=== PATIENT | male | born 1955 | race Caucasian/White ===

== ENCOUNTER 2019-12-20 11:03 | Emergency (ER) | payer OTHER, SELFPAY ==
--- NOTE | ~2019-12-20 | CT_ITS ---
EXAMINATION: CTA chest PE protocol DATE: 12/20/2019 13:05 INDICATION: Left chest pain. Shortness of breath. TECHNIQUE: Computed tomography angiography (CTA) of the chest was performed with 100 mL Omnipaque-350 intravenous contrast timed to evaluate the pulmonary arteries. Coronal maximum intensity projection 3D-reconstructions were created by the technologist. Automated exposure control and iterative reconst ruction technique were employed. The dose-length product was 1003.76 mGy-cm. COMPARISON: Chest single view 12/20/2019 FINDINGS: There is mild emphysema. There is mild atelectasis bilaterally. Calcified left lung nodules and calcified left hilar lymph nodes are consistent with old granulomatous disease. There are airspa ce opacities in left lower lobe and the posterior costophrenic angle. No pleural effusion. There is l eft ventricular enlargement of the heart. There is a large old infarct in the distribution of left an terior descending coronary artery. There are coronary artery calcifications. There is a left chest wa ll pacer with leads in the right atrium and right ventricle. There is no pulmonary embolus. There is a 5.1 cm cyst in right kidney. IMPRESSION: 1. No pulmonary embolus. 2. Airspace opacities in basilar left lower lobe posteriorly, consistent with atelectasis versus pneu monia. 3. Mild emphysema. 4. Left ventricular enlargement of the heart with old infarct. Reviewed, dictated and finalized at location A. IMPRESSION: 1. No pulmonary embolus. 2. Airspace opacities in basilar left lower lobe posteriorly, consistent with a telectasis versus pneumonia. 3. Mild emphysema. 4. Left ventricular enlargement of the heart with old infarct.
--- NOTE | ~2019-12-20 | XR_ITS ---
EXAMINATION: XR chest 1V portable EXAM DATE: 12/20/2019 11:40 INDICATION: Mid chest pain. TECHNIQUE: Portable AP frontal chest x-ray was obtained. Comparison is made to prior examination from 07/02/2017. FINDINGS: There is a dual lead pacemaker/AICD seen with leads projecting over the expected locations of the right atrial appendage and right ventricle. The lungs are clear. There are no pleural effusio ns. Cardiac silhouette is prominent but magnified on this AP technique. There is no pneumothorax s uspected. There are bony degenerative changes. IMPRESSION: No acute cardiopulmonary findings. Reviewed, dictated and finalized at location B.
[2019-12-20 11:03] VITALS: BP 161/74; PULSE 60; RESP 18; TEMP 36.9; O2SAT 97
--- NOTE | 2019-12-20 11:05 | ECG_ITS ---
Measurements Intervals [place] Rate: 61 P: 52 [place]: 190 QRS: 95 QRSD: 128 T: 3 QT: 409 QTc: 412 Interpretive Statements SINUS RHYTHM RIGHT AXIS DEVIATION INTRAVENTRICULAR CONDUCTION DELAY ANTEROSEPTAL INFARCT, AGE INDETERMINATE BORDERLINE ST ABNORMALITY- INFERIOR LEADS ABNORMAL ECG Electronically Signed On 12-20-2019 20:24:27 CDT by Eric Ling D.O.
--- NOTE | 2019-12-20 11:19 | ED.CHESTPAIN ---
HPI - Chest Pain General Chief Complaint: Chest Pain Stated Complaint: Chest Pain Time Seen by Provider: 12/20/19 11:05 Source: patient Mode of arrival: ambulatory Limitations: no limitations History of Present Illness HPI narrative: 64-year-old man with a history coronary disease comes into emergency department today complaining of left anterior chest pain which is sharp in nature and worse when he takes deep breath. States it also hurts to push on that area. He denies nausea, vomiting, dizziness, lightheadedness, sweating or shortness of breath. It started approximately 90 minutes ago. Pain comes and goes. he denies recent change in his cough, fever, vomiting, cold symptoms. MD complaint: chest pain Pertinent past history: coronary artery disease, prior [place] and [employer] Onset (ago): minute(s) (90) Timing of current episode: episodic and still present Prior episodes: No Onset: during rest Pain location: left chest Pain radiation: none Severity: moderate Quality: sharp Relieving factors: nothing Exacerbating factors: palpation and other (Taking a deep breath) Treatment prior to arrival: none (Took 81 mg asa this am as per usual) Risk Factors Coronary artery disease risk factors: smoking history, hyperlipidemia and hypertension Related Data Home Medications Medication Instructions Recorded Confirmed Unable to Obtain Home Medications 12/20/19 12/20/19 Allergies Allergy/AdvReac Type Severity Reaction Status Date / Time No Known Allergies Allergy Verified 12/20/19 12:33 Review of Systems Constitutional: Constitutional: Denies chills and Denies fever(s) Eyes: Eyes: Denies change in vision and Denies photophobia ENT: Denies dysphagia, Denies nasal congestion and Denies sore throat Cardiovascular: Cardiovascular: Reports chest pain, Denies rapid heart rate and Denies radiating jaw, neck or arm pain Respiratory: Respiratory: Reports cough (chronic) and Reports dyspnea (chronic) Gastrointestinal: Gastrointestinal: Denies abdominal pain, Denies diarrhea, Denies nausea and Denies vomiting Genitourinary: Genitourinary: Denies dysuria and Denies urinary frequency Musculoskeletal: Musculoskeletal: Denies back pain, Denies arthralgias and Denies joint swelling Integumentary/Breasts: Skin/Breast: Denies pruritus, Denies erythema and Denies rash Neurologic: Denies vertigo, Denies dizziness and Denies syncope Hematologic/Lymphatic: Hematologic/Lymphatic: Denies easy bleeding and Denies easy bruising Allergic/Immunologic: Allergic/Immunologic: Denies lip swelling and Denies tongue swelling [facility] Past Medical History Medical History (Updated 12/20/19 @ 11:45 by Uriel Hughes MD) Back pain CAD (coronary artery disease) CHF (congestive heart failure) COPD (chronic obstructive pulmonary disease) GERD (gastroesophageal reflux disease) HTN (hypertension) PSVT (paroxysmal supraventricular tachycardia) Surgical History Surgical History (Updated 12/20/19 @ 11:27 by Uriel Hughes MD) AICD (automatic cardioverter/defibrillator) present Pacemaker Stented coronary artery Social History Social History Smoking status: Current every day smoker Substance use: never Living arrangements: with family Exam Const: General: alert Nutritional Appearance: obese Orientation/consciousness: patient oriented x3 Limitations: no limitations Other: Mild acute distress HENMT: General nose exam: Normal nares present Face and sinus: normal facial exam Mouth: Yes moist mucous membranes Throat: posterior oropharynx normal Eyes: Conjunctivae: conjunctivae normal Pupils: Equal, round and reactive pupils present EOM: EOMs intact bilaterally Chest: Chest palpation & inspection: normal inspection of the chest Resp: Effort & Inspection: normal respiratory effort and not labored Auscultation: clear to auscultation bilaterally, no rales, no rhonchi and no wheezes Ca
[2019-12-20] MEDS: ASPIRIN 81 MG CHEWABLE TABLET 243 MG PO (11:25)
[2019-12-20 11:30] LABS: Basophils Absolute Auto 0.05 K/mm3 (0.00-0.10); Basophils Percent Auto 0.7 % (0.0-1.0); Eosinophils Absolute Auto 0.44 K/mm3 (0.02-0.50); Eosinophils Percent Auto 5.8 % (1.0-6.0); Hematocrit 35.2 % (37.0-46.0); Hemoglobin 11.3 g/dL (12.4-15.3); Immature Granulocyte Absolute 0.08 K/mm3 (0.00-0.00); Immature Granulocyte Percent A 1.1 % (0.0-0.0); Lymphocytes Absolute Auto 1.68 K/mm3 (1.10-4.50); Lymphocytes Percent Auto 22.3 % (18.0-42.0); Mean Corpuscular HGB Conc 32.1 g/dL (32.0-36.0); Mean Corpuscular Hemoglobin 29.8 pg (27.0-31.0); Mean Corpuscular Volume 92.9 fL (78.0-102.0); Mean Platelet Volume 9.1 fl (8.7-11.0); Monocytes Absolute Auto 0.61 K/mm3 (0.10-0.90); Monocytes Percent Auto 8.1 % (2.0-11.0); Neutrophils Absolute Auto 4.7 K/mm3 (1.7-7.2); Platelet Count Result 352 K/mm3 (150-420); Red Blood Count 3.79 M/mm3 (4.70-6.10); Red Cell Distribution Width 14.1 % (11.6-14.4); White Blood Count 7.5 K/mm3 (4.8-10.8)
[2019-12-20 11:44] LABS: INR 1.1; Partial Thromboplastin Time 28.6 SEC (22.3-31.6)
[2019-12-20 11:46] LABS: Alanine Aminotransferase 25 U/L (16-63); Albumin Level 3.7 g/dL (3.4-5.0); Alkaline Phosphatase 47 U/L (46-116); Anion Gap 10 mmol/L (8-16); Aspartate Amino Transferase 21 U/L (15-37); Bilirubin,Total 0.2 mg/dL (0.00-1.00); Blood Urea Nitrogen 22 mg/dL (7-18); Calcium 8.8 mg/dL (8.5-10.1); Carbon Dioxide 25 mmol/L (21-32); Chloride 103 mmol/L (98-108); Estimated Glomerular Filt Rate 47; Glucose 140 mg/dL (70-99); Lipase 160 U/L (73-393); Osmolality Calculated 291 mOsm/kg (285-295); Potassium 5.2 mmol/L (3.5-5.1); Sodium 138 mmol/L (136-145); Total Protein 7.5 g/dL (6.4-8.2)
[2019-12-20 11:47] LABS: D Dimer 0.67 mg/L (0.19-0.50)
[2019-12-20 11:50] LABS: Estimated CRCL calculation 54 ml/min
[2019-12-20 11:51] LABS: Troponin I < 0.02 ng/mL (0.00-0.056)
[2019-12-20 11:52] LABS: BNP 58.1 pg/mL (0-100)
--- NOTE | 2019-12-20 11:53 | PC.NURSE ---
pt joking and laughing, attentive to cell phone. continues to rate pain 9/10
[2019-12-20] MEDS: NITROGLYCERIN SL 0.4 MG TABLET SUBLINGUAL ×2 (11:57→12:07)
[2019-12-20 11:59] VITALS: PULSE 58
[2019-12-20 12:02] LABS: Add Urine Microscopic? YES; Appearance Urine Clear (Clear); Bilirubin Urine Negative (Negative); Blood Urine Negative (Negative); Color Urine Yellow (Yellow); Glucose Urine UA Negative (Negative); Ketones Urine Trace (Negative); Leukocyte Esterase Ur Trace LEU/UL (Negative); Nitrate Urine Negative (Negative); Protein Urine Negative (Negative); Specific Grav Ur 1.025 (1.010-1.020); Urobilinogen Urine 0.2 mg/dL (0.2-1.0)
[2019-12-20 12:06] LABS: Bacteria Urine None seen /hpf; RBC Urine 0-2 /hpf (0-2); Squamous Epithelial Cell Urine Occasional /hpf (Few); WBC Urine 0-3 /hpf (0-3)
--- NOTE | 2019-12-20 12:24 | PC.NURSE ---
erp in with pt discussing plan of care.
[2019-12-20 13:28] VITALS: BP 123/56; PULSE 60; RESP 20; TEMP 36.6; O2SAT 96
== END 2019-12-20 13:30 | disposition home or self-care (01) ==
PROVIDERS: Emergency Provider Emergency Medicine
DX: R07.89 Other chest pain (principal); R06.00 Dyspnea, unspecified
CPT/HCPCS: 36415; 71045; 71275; 80053; 81001; 83690; 83880; 84484; 85025; 85380; 85610; 85730; 93005; 99284; A9270; Q9965

== ENCOUNTER 2020-04-29 11:03 | Emergency (ER) | payer OTHER, SELFPAY ==
[2020-04-29 11:03] VITALS: BP 132/47; PULSE 60; RESP 20; TEMP 36.4; O2SAT 97
[2020-04-29 11:23] VITALS: PULSE 60
--- NOTE | 2020-04-29 11:30 | ECG_ITS ---
Measurements Intervals [place] Rate: 54 P: 51 [place]: 210 QRS: 85 QRSD: 113 T: 72 QT: 457 QTc: 435 Interpretive Statements SINUS BRADYCARDIA WITH FIRST DEGREE AV BLOCK INTRAVENTRICULAR CONDUCTION DELAY ANTEROSEPTAL INFARCT, AGE INDETERMINATE BASELINE ARTIFACT- V2-V5 ABNORMAL ECG Electronically Signed On 04-29-2020 12:06:23 [employer] by Eric Ling D.O.
--- NOTE | 2020-04-29 11:32 | ED.GENADULT ---
HPI - General Adult General Chief complaint: Chest Pain Stated complaint: Chest Pains Source: patient Mode of arrival: ambulatory History of Present Illness HPI narrative: South is a 64M with a complex PMH including CAD and arrhythmia (unknown type), COPD, PUD, HLD, and HTN that came in to the ED with CP and feeling a little tremulousness. His CP started around 0900 and stopped 30 minutes before coming to the ED. However, after it stopped he felt a little tremulous, like he drank too much caffine. His CP went away after he belched several times. He was eating donuts during this episode. There was no SOB, N/V, or lightheadedness with the CP. The CP did not radiate and it is completely gone now. However, his hands do still seem a little shaky. Related Data Home Medications Medication Instructions Recorded Confirmed Adult Low Dose Aspirin 81 mg PO DAILY 12/20/19 04/29/20 Nitrostat 0.4 mg SUBLINGUAL DIRECTED 12/20/19 04/29/20 amiloride 5 mg PO DAILY 12/20/19 04/29/20 amiodarone 200 mg PO DAILY 12/20/19 04/29/20 budesonide 80 mcg INHALATION BID 12/20/19 04/29/20 cholecalciferol (vitamin D3) 25 mcg BYMOUTH DAILY 12/20/19 04/29/20 doxazosin 8 mg PO DAILY 12/20/19 04/29/20 gabapentin 100 mg PO DAILY 12/20/19 04/29/20 lisinopril 40 mg PO DAILY 12/20/19 04/29/20 metoprolol succinate 200 mg PO DAILY 12/20/19 04/29/20 wbyzvzbiuiyn-mmq-meyg-FA-vit K 1 tablet PO DAILY 12/20/19 04/29/20 [Adults Multivitamin] omeprazole 40 mg PO DAILY 12/20/19 04/29/20 pravastatin 10 mg PO DAILY 12/20/19 04/29/20 Allergies Allergy/AdvReac Type Severity Reaction Status Date / Time No Known Allergies Allergy Verified 12/20/19 12:33 Review of Systems Constitutional: Constitutional: Denies chills, Denies fever(s) and Denies weakness Eyes: Eyes: Reports no additional eye complaints ENT: Reports system reviewed and no additional complaints, except as documented Cardiovascular: Cardiovascular: Reports as per HPI Respiratory: Respiratory: Reports no additional respiratory complaints Gastrointestinal: Gastrointestinal: Reports as per HPI Genitourinary: Genitourinary: Reports no additional male genitourinary complaints Musculoskeletal: Musculoskeletal: Reports no additional musculoskeletal complaints Integumentary/Breasts: Skin/Breast: Reports system reviewed and no additional complaints, except as docu Neurologic: Reports system reviewed and no additional complaints, except as documented Psychiatric: Psychiatric: Reports no additional psychiatric complaints REPLACED BY [facility] Past Medical History Medical History Back pain CAD (coronary artery disease) CHF (congestive heart failure) COPD (chronic obstructive pulmonary disease) GERD (gastroesophageal reflux disease) HTN (hypertension) PSVT (paroxysmal supraventricular tachycardia) Surgical History Surgical History AICD (automatic cardioverter/defibrillator) present Pacemaker Stented coronary artery Social History Social History Smoking status: Current every day smoker Substance use: never Exam Const: General: no acute distress and alert Orientation/consciousness: patient oriented x3 Limitations: No altered mental status HENMT: Head: normal to inspection Other: atraumatic Eyes: Conjunctivae: conjunctivae normal Pupils: Equal, round and reactive pupils present Neck: Neck: normal visual inspection Chest: Chest palpation & inspection: normal inspection of the chest Resp: Effort & Inspection: normal respiratory effort Auscultation: clear to auscultation bilaterally Cardio: Rate: regular rate Rhythm: regular rhythm GI: GI Palp: Yes Soft to palpation, No Tenderness to palpation present (GI) and No Guarding due to palpation present (GI) Back/Spine/Pelvis: Back: no CVA tenderness Skin: General skin exam: normal co
[2020-04-29 11:49] LABS: Basophils Absolute Auto 0.03 K/mm3 (0.00-0.10); Basophils Percent Auto 0.5 % (0.0-1.0); Eosinophils Absolute Auto 0.21 K/mm3 (0.02-0.50); Eosinophils Percent Auto 3.6 % (1.0-6.0); Hematocrit 30.3 % (37.0-46.0); Hemoglobin 9.5 g/dL (12.4-15.3); Immature Granulocyte Absolute 0.05 K/mm3 (0.00-0.00); Immature Granulocyte Percent A 0.8 % (0.0-0.0); Lymphocytes Absolute Auto 1.24 K/mm3 (1.10-4.50); Mean Corpuscular HGB Conc 31.4 g/dL (32.0-36.0); Mean Corpuscular Hemoglobin 27.5 pg (27.0-31.0); Mean Corpuscular Volume 87.6 fL (78.0-102.0); Mean Platelet Volume 9.1 fl (8.7-11.0); Monocytes Percent Auto 6.8 % (2.0-11.0); Neutrophils Percent Auto 67.3 % (50.0-70.0); Platelet Count Result 291 K/mm3 (150-420); Red Blood Count 3.46 M/mm3 (4.70-6.10); Red Cell Distribution Width 14.8 % (11.6-14.4); White Blood Count 5.9 K/mm3 (4.8-10.8)
[2020-04-29 12:05] LABS: Alanine Aminotransferase 38 U/L (16-63); Albumin Level 3.4 g/dL (3.4-5.0); Alkaline Phosphatase 44 U/L (46-116); Anion Gap 11 mmol/L (8-16); Aspartate Amino Transferase 27 U/L (15-37); Bilirubin,Total 0.2 mg/dL (0.00-1.00); Blood Urea Nitrogen 17 mg/dL (7-18); Calcium 8.6 mg/dL (8.5-10.1); Carbon Dioxide 25 mmol/L (21-32); Chloride 103 mmol/L (98-108); Estimated CRCL calculation 63 ml/min; Estimated Glomerular Filt Rate 56; Glucose 134 mg/dL (70-99); Osmolality Calculated 291 mOsm/kg (285-295); Potassium 4.4 mmol/L (3.5-5.1); Sodium 139 mmol/L (136-145); Troponin I 9.8 ng/L (0.00-60.4)
[2020-04-29] MEDS: MAG HYDROX/ALUMINUM HYD/SIMETH 30 ML, PHENobarb/HYOSCY/ATROPINE/SCOP 32.4 MG, LIDOCAINE... PO (12:05)
[2020-04-29 12:21] VITALS: BP 139/50; PULSE 60; RESP 12; O2SAT 96
== END 2020-04-29 12:24 | disposition home or self-care (01) ==
PROVIDERS: Emergency Provider Family Medicine
DX: R07.89 Other chest pain (principal)
CPT/HCPCS: 36415; 80053; 84484; 85025; 93005; 99282; 99284; A9270

== ENCOUNTER 2021-09-21 05:32 | Emergency (ER) | payer OTHER, SELFPAY ==
--- NOTE | ~2021-09-21 | XR_ITS ---
EXAMINATION: XR chest 2V DATE: 09/21/2021 06:56 INDICATION: Chest pain. Cardiac arrhythmia. TECHNIQUE: frontal and lateral views of the chest were obtained. COMPARISON: Chest radiograph and CT dated 12/20/2019 FINDINGS: Calcified nodule in the posterior superior segment of the left lower lobe along with calcified left h ilar lymph nodes consistent with old granulomatous disease. The lungs remain clear with no focal airs pace opacities, pulmonary edema, pleural effusion or pneumothorax. Mild cardiomegaly. Dual lead pacemaker/AICD seen with leads projecting over the expected locations of the right atrium a nd right ventricular outflow tract. Moderate thoracic spondylosis. IMPRESSION: 1. Mild cardiomegaly. No acute cardiopulmonary disease. Reviewed, dictated and finalized at location A.
[2021-09-21 05:35] VITALS: BP 131/84; PULSE 60; PULSE 65; RESP 20; TEMP 36.1; O2SAT 95
--- NOTE | 2021-09-21 05:37 | ED.ARRPALP ---
HPI - Arrhythmia/Palpitations General Chief Complaint: Arrhythmia/Palpitations Stated Complaint: sob Time Seen by Provider: 09/21/21 05:37 Source: patient Mode of arrival: ambulatory History of Present Illness HPI narrative: 66-year-old male smoker with a history of hypertension, dyslipidemia, COPD, PSVT, PVD status post bilateral lower extremity stents, coronary artery disease / PR status post stents, CHF status post AICD four years ago called the [facility] for palpitations since last night. . He was come to the nearest hospital for arrhythmias. He denies any chest pain or shortness of breath. MD complaint: irregular heart beat Onset (ago): hour(s) ( 12 hours ago) Duration: intermittent Severity: mild Context: occurred during rest Arrhythmia history: SVT Associated symptoms: denies other symptoms Related Data Home Medications Medication Instructions Recorded Confirmed Adult Low Dose Aspirin 81 mg PO DAILY 12/20/19 09/21/21 Nitrostat 0.4 mg sublingual DIRECTED 12/20/19 09/21/21 amiloride 5 mg PO DAILY 12/20/19 09/21/21 amiodarone 200 mg PO DAILY 12/20/19 09/21/21 budesonide 80 mcg inhalation BID 12/20/19 09/21/21 cholecalciferol (vitamin D3) 25 mcg BYMOUTH DAILY 12/20/19 09/21/21 doxazosin 8 mg PO DAILY 12/20/19 09/21/21 gabapentin 100 mg PO DAILY 12/20/19 09/21/21 lisinopril 40 mg PO DAILY 12/20/19 09/21/21 metoprolol succinate 200 mg PO DAILY 12/20/19 09/21/21 multivit with minerals-iron 18 1 tablet PO DAILY 12/20/19 09/21/21 mg-folic ac 400 mcg-vit K 25 mcg tablet (Adults Multivitamin) omeprazole 40 mg PO DAILY 12/20/19 09/21/21 pravastatin 10 mg PO DAILY 12/20/19 09/21/21 aspirin 81 mg tablet 81 mg PO DIRECTED 09/21/21 09/21/21 furosemide 20 mg tablet (Lasix) 20 mg PO DIRECTED 09/21/21 09/21/21 prednisone 10 mg tablets in a dose 0 mg PO PER PKG DIR 09/21/21 09/21/21 pack Allergies Allergy/AdvReac Type Severity Reaction Status Date / Time No Known Allergies Allergy Verified 09/21/21 05:57 Review of Systems Review of Systems: All systems reviewed & are unremarkable except as noted in HPI and below Constitutional: Constitutional: Reports as per HPI Eyes: Eyes: Reports as per HPI and Reports no additional eye complaints ENT: Reports system reviewed and no additional complaints, except as documented and Reports as per HPI Cardiovascular: Cardiovascular: Reports as per HPI, Reports no additional cardiovascular complaints and Reports rapid heart rate ( irregular heartbeat) Respiratory: Respiratory: Reports as per HPI, Reports no additional respiratory complaints and Reports chest congestion Gastrointestinal: Gastrointestinal: Reports as per HPI and Reports no additional gastrointestinal complaints Genitourinary: Genitourinary: Reports no additional male genitourinary complaints and Reports as per HPI Musculoskeletal: Musculoskeletal: Reports no additional musculoskeletal complaints and Reports as per HPI Integumentary/Breasts: Skin/Breast: Reports system reviewed and no additional complaints, except as docu and Reports as per HPI Neurologic: Reports system reviewed and no additional complaints, except as documented and Reports as per HPI Psychiatric: Psychiatric: Reports no additional psychiatric complaints and Reports as per HPI Endocrine: Endocrine: Reports no additional endocrine complaints and Reports as per HPI Hematologic/Lymphatic: Hematologic/Lymphatic: Reports no additional hematologic/lymphatic complaints and Reports as per HPI Allergic/Immunologic: Allergic/Immunologic: Reports no additional allergic/immunologic complaints and Reports as per HPI [facility] Past Medical History Medical History Back pain CAD (coronary artery disease) CHF (congestive heart failure) COPD (chronic obstructive pulmonary disease) GERD (gastroesophageal reflux disease) HTN (hypertension) PSVT (paroxysmal supraventricular tachycardia) Tc
--- NOTE | 2021-09-21 06:00 | ECG_ITS ---
Measurements Intervals [place] Rate: 63 P: 116 [place]: 221 QRS: 68 QRSD: 113 T: 58 QT: 400 QTc: 409 Interpretive Statements ELECTRONIC ATRIAL PACEMAKER PVC POSSIBLE ANTERIOR MYOCARDIAL INFARCTION , OF INDETERMINATE AGE Electronically Signed On 09-21-2021 10:44:36 CDT by Jefry Pearce M.D.
[2021-09-21 06:16] LABS: Basophils Absolute Auto 0.05 K/mm3 (0.00-0.10); Basophils Percent Auto 0.6 % (0.0-1.0); Eosinophils Absolute Auto 0.14 K/mm3 (0.02-0.50); Eosinophils Percent Auto 1.7 % (1.0-6.0); Hematocrit 39.3 % (37.0-46.0); Hemoglobin 12.8 g/dL (12.4-15.3); Immature Granulocyte Absolute 0.05 K/mm3 (0.00-0.00); Immature Granulocyte Percent A 0.6 % (0.0-0.0); Lymphocytes Absolute Auto 1.73 K/mm3 (1.10-4.50); Mean Corpuscular HGB Conc 32.6 g/dL (32.0-36.0); Mean Corpuscular Hemoglobin 30.3 pg (27.0-31.0); Mean Corpuscular Volume 93.1 fL (78.0-102.0); Monocytes Absolute Auto 0.55 K/mm3 (0.10-0.90); Monocytes Percent Auto 6.7 % (2.0-11.0); Neutrophils Absolute Auto 5.7 K/mm3 (1.7-7.2); Neutrophils Percent Auto 69.4 % (50.0-70.0); Platelet Count Result 242 K/mm3 (150-420); Red Blood Count 4.22 M/mm3 (4.70-6.10); Red Cell Distribution Width 14.6 % (11.6-14.4); White Blood Count 8.2 K/mm3 (4.8-10.8)
[2021-09-21 06:31] LABS: Partial Thromboplastin Time 26.7 SEC (23.90-30.70); Prothrombin Time 10.9 Seconds (9.50-12.10)
[2021-09-21 06:37] LABS: Lactic Acid Reflex 1.4 mmol/L (0.4-2.0)
[2021-09-21 06:39] LABS: Alanine Aminotransferase 14 U/L (16-63); Albumin Level 3.3 g/dL (3.4-5.0); Alkaline Phosphatase 45 U/L (46-116); Anion Gap 6 mmol/L (8-16); Aspartate Amino Transferase 15 U/L (15-37); Bilirubin,Total 0.3 mg/dL (0.00-1.00); Blood Urea Nitrogen 23 mg/dL (7-18); Calcium 8.8 mg/dL (8.5-10.1); Carbon Dioxide 29 mmol/L (21-32); Chloride 106 mmol/L (98-108); Estimated Glomerular Filt Rate 56; Glucose 117 mg/dL (70-99); NT Pro B Type Natriuretic Pept 1744 pg/mL (0-125); Osmolality Calculated 296 mOsm/kg (285-295); Potassium 4.1 mmol/L (3.5-5.1); Sodium 141 mmol/L (136-145); Total Protein 6.7 g/dL (6.4-8.2); Troponin I 18.5 ng/L (0.00-60.4)
[2021-09-21 07:17] VITALS: BP 140/65; PULSE 65; RESP 16; O2SAT 96
== END 2021-09-21 07:20 | disposition home or self-care (01) ==
PROVIDERS: Emergency Provider Internal Medicine Critical Care Medicine
DX: R00.2 Palpitations (principal); I50.9 Heart failure, unspecified; I25.10 Atherosclerotic heart disease of native coronary artery without angina pectoris; J44.9 Chronic obstructive pulmonary disease, unspecified; K21.9 Gastro-esophageal reflux disease without esophagitis; I10 Essential (primary) hypertension; F17.200 Nicotine dependence, unspecified, uncomplicated
CPT/HCPCS: 36415; 71046; 80053; 83605; 83880; 84484; 85025; 85610; 85730; 93005; 99284

== ENCOUNTER 2022-03-28 10:38 | Emergency (ER) | payer OTHER, SELFPAY ==
--- NOTE | ~2022-03-28 | XR_ITS ---
EXAMINATION: XR chest 1V portable DATE: 03/28/2022 11:34 INDICATION: Shortness of breath. TECHNIQUE: A single frontal view of the chest was obtained. COMPARISON: Chest 2 views 09/21/2021, chest CT 12/20/2019 FINDINGS: There is no pneumonia, pleural effusion, or pneumothorax. Calcified left hilar lymph nodes are consistent with old granulomatous disease. There is left ventricular enlargement of the heart. Th ere is a left chest wall pacer with leads in the right atrium and right ventricle. IMPRESSION: 1. Left ventricular enlargement of the heart. Reviewed, dictated and finalized at location A. [employer]
[2022-03-28 10:59] VITALS: BP 131/62; PULSE 69; RESP 20; TEMP 36.2; O2SAT 93
--- NOTE | 2022-03-28 11:02 | ECG_ITS ---
Measurements Intervals [place] Rate: 63 P: 41 [place]: 200 QRS: 82 QRSD: 116 T: 55 QT: 408 QTc: 418 Interpretive Statements ELECTRONIC ATRIAL PACEMAKER WITH INHIBITION INCOMPLETE LEFT BUNDLE BRANCH BLOCK BORDERLINE R WAVE PROGRESSION, ANTERIOR LEADS BORDERLINE ST-T WAVE ABNORMALITY- INFERIOR LEADS ABNORMAL ECG COMPARED TO ECG 09/21/2021 06:27:48 NO SIGNIFICANT CHANGES Electronically Signed On 03-28-2022 11:39:30 [employer]INE [employer] by Eric Ling D.O.
--- NOTE | 2022-03-28 11:04 | ED.CHESTPAIN ---
HPI - Chest Pain General Chief Complaint: Upper Respiratory Infection Stated Complaint: [facility], congestion Time Seen by Provider: 03/28/22 11:01 Source: patient Mode of arrival: ambulatory History of Present Illness HPI narrative: 66-year-old male, smoker with a history of hypertension, dyslipidemia, GERD, COPD, CAD status post stent, CHF status post AICD, peripheral vascular disease presents to the ER with a 10 day history of -- cough which is productive of mucoid sputum -- sinus drainage -- chest congestion -- Fever 3 days ago. MD complaint: other ( chest congestion) Pertinent past history: coronary artery disease and prior [place] Context: recent illness Associated symptoms: dyspnea, fever, cough and other ( nasal congestion with sinus drainage) Treatment prior to arrival: none Risk Factors Coronary artery disease risk factors: smoking history, hyperlipidemia and hypertension Related Data Home Medications Medication Instructions Recorded Confirmed Adult Low Dose Aspirin 81 mg PO DAILY 12/20/19 09/21/21 Nitrostat 0.4 mg sublingual DIRECTED 12/20/19 09/21/21 amiloride 5 mg PO DAILY 12/20/19 09/21/21 amiodarone 200 mg PO DAILY 12/20/19 09/21/21 budesonide 80 mcg inhalation BID 12/20/19 09/21/21 cholecalciferol (vitamin D3) 25 mcg BYMOUTH DAILY 12/20/19 09/21/21 doxazosin 8 mg PO DAILY 12/20/19 09/21/21 gabapentin 100 mg PO DAILY 12/20/19 09/21/21 lisinopril 40 mg PO DAILY 12/20/19 09/21/21 metoprolol succinate 200 mg PO DAILY 12/20/19 09/21/21 multivit with minerals-iron 18 1 tablet PO DAILY 12/20/19 09/21/21 mg-folic ac 400 mcg-vit K 25 mcg tablet (Adults Multivitamin) omeprazole 40 mg PO DAILY 12/20/19 09/21/21 pravastatin 10 mg PO DAILY 12/20/19 09/21/21 aspirin 81 mg tablet 81 mg PO DIRECTED 09/21/21 09/21/21 furosemide 20 mg tablet (Lasix) 20 mg PO DIRECTED 09/21/21 09/21/21 prednisone 10 mg tablets in a dose 0 mg PO PER PKG DIR 09/21/21 09/21/21 pack Allergies Allergy/AdvReac Type Severity Reaction Status Date / Time No Known Allergies Allergy Verified 09/21/21 05:57 Review of Systems Review of Systems: All systems reviewed & are unremarkable except as noted in HPI and below Constitutional: Constitutional: Reports as per HPI, Reports no additional constitutional complaints and Reports fever(s) Eyes: Eyes: Reports as per HPI and Reports no additional eye complaints ENT: Reports system reviewed and no additional complaints, except as documented, Reports as per HPI and Reports nasal congestion Comments: postnasal drip Cardiovascular: Cardiovascular: Reports as per HPI and Reports no additional cardiovascular complaints Comments: chest congestion Respiratory: Respiratory: Reports as per HPI, Reports no additional respiratory complaints, Reports chest congestion, Reports cough and Reports dyspnea Comments: cough with mucoid sputum Gastrointestinal: Gastrointestinal: Reports as per HPI and Reports no additional gastrointestinal complaints Genitourinary: Genitourinary: Reports no additional male genitourinary complaints and Reports as per HPI Musculoskeletal: Musculoskeletal: Reports no additional musculoskeletal complaints and Reports as per HPI Integumentary/Breasts: Skin/Breast: Reports system reviewed and no additional complaints, except as docu and Reports as per HPI Neurologic: Reports system reviewed and no additional complaints, except as documented and Reports as per HPI Psychiatric: Psychiatric: Reports no additional psychiatric complaints and Reports as per HPI Endocrine: Endocrine: Reports no additional endocrine complaints and Reports as per HPI Hematologic/Lymphatic: Hematologic/Lymphatic: Reports no additional hematologic/lymphatic complaints and Reports as per HPI Allergic/Immunologic: Allergic/Immunologic: Reports no additional allergic/immunologic complaints and Reports as per HPI [facility] Past Medical History Medical History (Reviewed 03/28/22 @ 11:18 b
[2022-03-28] MEDS: IPRATROPIUM 0.5 MG/ALBUTEROL SULFATE 2.5 MG AMPUL.NEB 3 ML INHALATION (11:35)
[2022-03-28 11:36] VITALS: PULSE 64; RESP 16; O2SAT 92
[2022-03-28 11:41] LABS: Basophils Absolute Auto 0.02 K/mm3 (0.00-0.10); Basophils Percent Auto 0.4 % (0.0-1.0); Eosinophils Absolute Auto 0.06 K/mm3 (0.02-0.50); Eosinophils Percent Auto 1.2 % (1.0-6.0); Hematocrit 38.3 % (37.0-46.0); Hemoglobin 12.7 g/dL (12.4-15.3); Immature Granulocyte Absolute 0.02 K/mm3 (0.00-0.00); Immature Granulocyte Percent A 0.4 % (0.0-0.0); Lymphocytes Absolute Auto 1.35 K/mm3 (1.10-4.50); Lymphocytes Percent Auto 27.6 % (18.0-42.0); Mean Corpuscular HGB Conc 33.2 g/dL (32.0-36.0); Mean Corpuscular Hemoglobin 30.9 pg (27.0-31.0); Mean Corpuscular Volume 93.2 fL (78.0-102.0); Mean Platelet Volume 9.3 fl (8.7-11.0); Monocytes Absolute Auto 0.46 K/mm3 (0.10-0.90); Monocytes Percent Auto 9.4 % (2.0-11.0); Platelet Count Result 210 K/mm3 (150-420); Red Blood Count 4.11 M/mm3 (4.70-6.10); White Blood Count 4.9 K/mm3 (4.8-10.8)
[2022-03-28 11:45] VITALS: PULSE 62; RESP 16; O2SAT 97
[2022-03-28 11:56] LABS: Partial Thromboplastin Time 32.5 SEC (23.90-30.70); Prothrombin Time 10.9 Seconds (9.50-12.10)
[2022-03-28 12:01] LABS: Lactic Acid Reflex 1.4 mmol/L (0.4-2.0)
[2022-03-28 12:17] LABS: Alanine Aminotransferase 37 U/L (16-63); Albumin Level 3.6 g/dL (3.4-5.0); Alkaline Phosphatase 45 U/L (46-116); Anion Gap 9 mmol/L (8-16); Aspartate Amino Transferase 28 U/L (15-37); Bilirubin,Total 0.2 mg/dL (0.00-1.00); Blood Urea Nitrogen 25 mg/dL (7-18); Calcium 8.5 mg/dL (8.5-10.1); Carbon Dioxide 26 mmol/L (21-32); Chloride 104 mmol/L (98-108); Estimated CRCL calculation 52 ml/min; Estimated Glomerular Filt Rate 47; Glucose 109 mg/dL (70-99); Influenza A QL RT-PCR Negative (Negative); Influenza B QL RT-PCR Negative (Negative); NT Pro B Type Natriuretic Pept 563 pg/mL (0-125); Osmolality Calculated 293 mOsm/kg (285-295); Potassium 4.2 mmol/L (3.5-5.1); SARS-CoV-2 RNA PCR Positive (Negative); Sodium 139 mmol/L (136-145); Total Protein 7.3 g/dL (6.4-8.2); Troponin I 16.7 ng/L (0.00-60.4)
[2022-03-28 12:21] LABS: Thyroid Stimulating Hormone 0.63 uIU/mL (0.36-3.74)
[2022-03-28 12:40] VITALS: BP 129/62; PULSE 64; RESP 20
[2022-03-28] MEDS: AZITHROMYCIN 250 MG TABLET 500 MG PO (12:51)
[2022-03-28] MEDS: ALBUTEROL SULFATE (*SP) INHALER 2 PUFF INHALATION (12:52)
[2022-03-28 13:10] VITALS: BP 107/95; PULSE 64; RESP 20; O2SAT 93
== END 2022-03-28 13:13 | disposition home or self-care (01) ==
PROVIDERS: Emergency Provider Internal Medicine Critical Care Medicine
DX: U07.1 COVID-19 (principal); N17.9 Acute kidney failure, unspecified; I13.0 Hypertensive heart and chronic kidney disease with heart failure and stage 1 through stage 4 chronic kidney disease, or unspecified chronic kidney disease; I50.9 Heart failure, unspecified; N18.9 Chronic kidney disease, unspecified; J44.9 Chronic obstructive pulmonary disease, unspecified; E78.5 Hyperlipidemia, unspecified; K21.9 Gastro-esophageal reflux disease without esophagitis; I25.10 Atherosclerotic heart disease of native coronary artery without angina pectoris; I47.1 Supraventricular tachycardia; Z95.5 Presence of coronary angioplasty implant and graft; Z95.810 Presence of automatic (implantable) cardiac defibrillator; I73.9 Peripheral vascular disease, unspecified; Z79.82 Long term (current) use of aspirin
CPT/HCPCS: 36415; 71045; 80053; 83605; 83880; 84443; 84484; 85025; 85610; 85730; 87636; 93005; 94640; 99284; A9270

== ENCOUNTER 2022-03-30 10:42 | Emergency (ER) | payer OTHER, SELFPAY ==
[2022-03-30 12:55] VITALS: BP 133/70; PULSE 61; RESP 20; TEMP 36.3; O2SAT 94
[2022-03-30 13:40] VITALS: O2SAT 94
--- NOTE | 2022-03-30 13:47 | ED.SOB ---
HPI - SOB/Dyspnea General Chief Complaint: Abdominal Pain Stated Complaint: HERNIA ISSUES Time Seen by Provider: 03/30/22 13:21 Source: patient Mode of arrival: ambulatory Limitations: no limitations History of Present Illness HPI Narrative: 66 year old male presents to the Emergency Department complaining of shortness of breath. Patient attributes his shortness of breath to his abdominal ventral hernia. Patient states when he walks he gets short of breath, or any time he exerts himself. Patient has a ventral hernia and was also Covid positive 2 weeks ago and smokes. He attributes his shotness of breath to his hernia pushing upwards. Denies chest pain. No fever, nausea, vomiting or diarrhea. Denies any problems with urination or bowel movements. MD elicited complaint: shortness of breath Pertinent past history: COPD and congestive heart failure Onset (ago): week(s) Context: recent illness (Covid positive 2 weeks ago) Timing: intermittent Severity: moderate Exacerbating factors: lying flat, exertion and coughing Relieving factors: rest and upright position Known history of: COPD, congestive heart failure and other (Covid, Smoking) Associated symptoms: denies other symptoms, cough and abdominal pain Treatment prior to arrival: none Related Data Home Medications Medication Instructions Recorded Confirmed Adult Low Dose Aspirin 81 mg PO DAILY 12/20/19 09/21/21 Nitrostat 0.4 mg sublingual DIRECTED 12/20/19 09/21/21 amiloride 5 mg PO DAILY 12/20/19 09/21/21 amiodarone 200 mg PO DAILY 12/20/19 09/21/21 budesonide 80 mcg inhalation BID 12/20/19 09/21/21 cholecalciferol (vitamin D3) 25 mcg BYMOUTH DAILY 12/20/19 09/21/21 doxazosin 8 mg PO DAILY 12/20/19 09/21/21 gabapentin 100 mg PO DAILY 12/20/19 09/21/21 lisinopril 40 mg PO DAILY 12/20/19 09/21/21 metoprolol succinate 200 mg PO DAILY 12/20/19 09/21/21 multivit with minerals-iron 18 1 tablet PO DAILY 12/20/19 09/21/21 mg-folic ac 400 mcg-vit K 25 mcg tablet (Adults Multivitamin) omeprazole 40 mg PO DAILY 12/20/19 09/21/21 pravastatin 10 mg PO DAILY 12/20/19 09/21/21 aspirin 81 mg tablet 81 mg PO DIRECTED 09/21/21 09/21/21 furosemide 20 mg tablet (Lasix) 20 mg PO DIRECTED 09/21/21 09/21/21 prednisone 10 mg tablets in a dose 0 mg PO PER PKG DIR 09/21/21 09/21/21 pack Allergies Allergy/AdvReac Type Severity Reaction Status Date / Time No Known Allergies Allergy Verified 09/21/21 05:57 Review of Systems Review of Systems: All systems reviewed & are unremarkable except as noted in HPI and below Constitutional: Constitutional: Reports as per HPI, Reports no additional constitutional complaints, Denies chills, Denies fatigue, Denies fever(s) and Denies weakness Eyes: Eyes: Reports as per HPI, Reports no additional eye complaints and Denies change in vision ENT: Reports system reviewed and no additional complaints, except as documented, Reports as per HPI, Denies nasal congestion and Denies sore throat Cardiovascular: Cardiovascular: Reports as per HPI, Reports no additional cardiovascular complaints and Denies chest pain Respiratory: Respiratory: Reports as per HPI, Reports no additional respiratory complaints and Reports dyspnea Gastrointestinal: Gastrointestinal: Reports as per HPI, Reports no additional gastrointestinal complaints, Denies constipation, Denies diarrhea, Denies nausea and Denies vomiting Genitourinary: Genitourinary: Reports no additional male genitourinary complaints, Reports as per HPI, Denies oliguria and Denies dysuria Musculoskeletal: Musculoskeletal: Reports no additional musculoskeletal complaints, Reports as per HPI and Denies joint swelling Integumentary/Breasts: Skin/Breast: Reports system reviewed and no additional complaints, except as docu and Reports as per HPI Neurologic: Reports system reviewed and no additional complaints, except as documented, Reports as per HPI, Denies focal weakness, Denies numbness and Denies weakness Psych
== END 2022-03-30 14:20 | disposition home or self-care (01) ==
PROVIDERS: Emergency Provider Emergency Medicine
DX: J44.9 Chronic obstructive pulmonary disease, unspecified (principal); I25.10 Atherosclerotic heart disease of native coronary artery without angina pectoris; I11.0 Hypertensive heart disease with heart failure; I50.9 Heart failure, unspecified; K43.9 Ventral hernia without obstruction or gangrene; K21.9 Gastro-esophageal reflux disease without esophagitis; I47.1 Supraventricular tachycardia; Z95.810 Presence of automatic (implantable) cardiac defibrillator; Z95.5 Presence of coronary angioplasty implant and graft; F17.200 Nicotine dependence, unspecified, uncomplicated; Z79.82 Long term (current) use of aspirin
CPT/HCPCS: 99281

== ENCOUNTER 2022-04-17 07:08 | Emergency (ER) | payer OTHER, SELFPAY ==
[2022-04-17] VITALS (7 sets, daily range): BP systolic 136–146; BP diastolic 65–76; PULSE 60–88; RESP 16–18; TEMP 36.2–36.8; O2SAT 93–98
--- NOTE | ~2022-04-17 | XR_ITS ---
EXAMINATION: XR chest 1V portable DATE: 04/17/2022 08:01 INDICATION: Shortness of breath. TECHNIQUE: A single frontal view of the chest was obtained. COMPARISON: Chest single view 03/28/2022, chest CT 12/20/2019 FINDINGS: There is mild atelectasis at the lung bases. A calcified left lung nodule and calcified lef t hilar lymph nodes are consistent with old granulomatous disease. No pleural effusion or pneumothora x. Cardiomegaly is noted. There is a left chest wall pacer with leads in the right atrium and right v entricle. IMPRESSION: 1. Mild atelectasis at the lung bases. 2. Cardiomegaly. Reviewed, dictated and finalized at location A. [employer]
--- NOTE | 2022-04-17 07:42 | ECG_ITS ---
Measurements Intervals Cross Rate: 60 P: 110 ME: 215 QRS: 94 QRSD: 126 T: 61 QT: 450 QTc: 450 Interpretive Statements ELECTRONIC ATRIAL PACEMAKER RIGHT AXIS DEVIATION INCOMPLETE LEFT BUNDLE BRANCH BLOCK MINIMAL Q WAVES- INFERIOR LEADS BORDERLINE R WAVE PROGRESSION, ANTERIOR LEADS BORDERLINE ECG COMPARED TO ECG 03/28/2022 11:02:12 NO SIGNIFICANT CHANGES Electronically Signed On 04-17-2022 9:10:14 [employer] by Eric Ling D.O.
[2022-04-17] MEDS: IPRATROPIUM 0.5 MG/ALBUTEROL SULFATE 2.5 MG AMPUL.NEB 3 ML INHALATION (08:00)
--- NOTE | 2022-04-17 08:54 | ED.GENADULT ---
HPI - General Adult General Chief complaint: Shortness of Breath/Dyspnea Stated complaint: shortness of breath Source: patient Mode of arrival: ambulatory Limitations: no limitations History of Present Illness HPI narrative: Patient is 66-year-old pleasant white male With history of COPD CHF and a pacemaker appears in no apparent distress. Came in complaining of shortness of breath. He said he was here 3 weeks earlier and was tested for COVID and was positive after having been sick for 10 days. He was given a [facility]. He has only been using the machine twice a day instead of 4 times a day as instructed. He has been using his meter dose inhaler but has not been using the spacer that he was given. For the last 5 days he has had increasing swelling of his ankles and feet and has doubled up on his diuretic pill. [facility] and [facility] told him to come to the emergency department. Denies any fever chest pain back pain abdominal pain nausea vomiting or diaphoresis bleeding or bruising or melena. He has had a nonproductive cough. He denies any extremity pain rash or itching runny nose sinus congestion sore throat or other complaint. Related Data Home Medications Medication Instructions Recorded Confirmed Adult Low Dose Aspirin 81 mg PO DAILY 12/20/19 04/17/22 Nitrostat 0.4 mg sublingual DIRECTED 12/20/19 04/17/22 amiloride 5 mg PO DAILY 12/20/19 04/17/22 amiodarone 200 mg PO DAILY 12/20/19 04/17/22 budesonide 80 mcg inhalation BID 12/20/19 04/17/22 cholecalciferol (vitamin D3) 25 mcg BYMOUTH DAILY 12/20/19 04/17/22 doxazosin 8 mg PO DAILY 12/20/19 04/17/22 gabapentin 100 mg PO DAILY 12/20/19 04/17/22 lisinopril 40 mg PO DAILY 12/20/19 04/17/22 metoprolol succinate 200 mg PO DAILY 12/20/19 04/17/22 multivit with minerals-iron 18 1 tablet PO DAILY 12/20/19 04/17/22 mg-folic ac 400 mcg-vit K 25 mcg tablet (Adults Multivitamin) omeprazole 40 mg PO DAILY 12/20/19 04/17/22 pravastatin 10 mg PO DAILY 12/20/19 04/17/22 aspirin 81 mg tablet 81 mg PO DIRECTED 09/21/21 04/17/22 furosemide 20 mg tablet (Lasix) 20 mg PO DIRECTED 09/21/21 04/17/22 prednisone 10 mg tablets in a dose 0 mg PO PER PKG DIR 09/21/21 04/17/22 pack Allergies Allergy/AdvReac Type Severity Reaction Status Date / Time No Known Allergies Allergy Verified 04/17/22 07:26 Review of Systems Constitutional: Constitutional: Reports as per HPI and Reports no additional constitutional complaints Eyes: Eyes: Reports no additional eye complaints ENT: Reports system reviewed and no additional complaints, except as documented and Reports as per HPI Cardiovascular: Cardiovascular: Reports as per HPI and Reports no additional cardiovascular complaints Respiratory: Respiratory: Reports as per HPI and Reports no additional respiratory complaints Gastrointestinal: Gastrointestinal: Reports as per HPI and Reports no additional gastrointestinal complaints Genitourinary: Genitourinary: Reports no additional male genitourinary complaints Musculoskeletal: Musculoskeletal: Reports no additional musculoskeletal complaints Integumentary/Breasts: Skin/Breast: Reports system reviewed and no additional complaints, except as docu Neurologic: Reports system reviewed and no additional complaints, except as documented PMF Past Medical History Medical History Back pain CAD (coronary artery disease) CHF (congestive heart failure) COPD (chronic obstructive pulmonary disease) GERD (gastroesophageal reflux disease) HTN (hypertension) PSVT (paroxysmal supraventricular tachycardia) Surgical History Surgical History AICD (automatic cardioverter/defibrillator) present Pacemaker Stented coronary artery Social History Social History Smo
[2022-04-17 09:20] LABS: Hematocrit 37.9 % (37.0-46.0); Hemoglobin 12.6 g/dL (12.4-15.3); Mean Corpuscular HGB Conc 33.2 g/dL (32.0-36.0); Mean Corpuscular Hemoglobin 31.7 pg (27.0-31.0); Mean Corpuscular Volume 95.2 fL (78.0-102.0); Mean Platelet Volume 9.1 fl (8.7-11.0); Platelet Count Result 301 K/mm3 (150-420); Red Blood Count 3.98 M/mm3 (4.70-6.10); Red Cell Distribution Width 13.7 % (11.6-14.4)
[2022-04-17 09:34] LABS: INR 1.1; Partial Thromboplastin Time 30.8 SEC (23.90-30.70); Prothrombin Time 11.9 Seconds (9.50-12.10)
[2022-04-17 09:41] LABS: Alanine Aminotransferase 29 U/L (16-63); Albumin Level 3.9 g/dL (3.4-5.0); Alkaline Phosphatase 38 U/L (46-116); Anion Gap 8 mmol/L (8-16); Aspartate Amino Transferase 18 U/L (15-37); Bilirubin,Total 0.4 mg/dL (0.00-1.00); Blood Urea Nitrogen 25 mg/dL (7-18); Calcium 9.1 mg/dL (8.5-10.1); Carbon Dioxide 30 mmol/L (21-32); Chloride 102 mmol/L (98-108); Estimated CRCL calculation 56 ml/min; Estimated Glomerular Filt Rate 51; Glucose 99 mg/dL (70-99); Magnesium 2.1 mg/dL (1.8-2.4); NT Pro B Type Natriuretic Pept 440 pg/mL (0-125); Osmolality Calculated 294 mOsm/kg (285-295); Sodium 140 mmol/L (136-145); Total Protein 7.9 g/dL (6.4-8.2); Troponin I 15.9 ng/L (0.00-60.4)
[2022-04-17 09:57] LABS: D Dimer 0.61 mg/L (0.19-0.50)
--- NOTE | 2022-04-17 09:59 | PC.NURSE ---
DDimer 0.61, Erp made aware
[2022-04-17 10:06] LABS: Influenza A QL RT-PCR Negative (Negative); Influenza B QL RT-PCR Negative (Negative)
--- NOTE | 2022-04-23 13:47 | PC.NURSE ---
final blood culture reports x2 reviewed. no growth after 5 days. no change in plan of care.
== END 2022-04-17 10:29 | disposition home or self-care (01) ==
PROVIDERS: Emergency Provider Emergency Medicine
DX: J44.1 Chronic obstructive pulmonary disease with (acute) exacerbation (principal); I25.10 Atherosclerotic heart disease of native coronary artery without angina pectoris; I11.0 Hypertensive heart disease with heart failure; I50.9 Heart failure, unspecified; F17.200 Nicotine dependence, unspecified, uncomplicated; Z95.0 Presence of cardiac pacemaker; Z79.82 Long term (current) use of aspirin
CPT/HCPCS: 36415; 71045; 80053; 83735; 83880; 84484; 85027; 85380; 85610; 85730; 87040; 87502; 93005; 94640; 99284

== ENCOUNTER 2022-06-08 14:57 | Outpatient (RCR) | payer OTHER, SELFPAY ==
--- NOTE | 2022-06-08 16:09 | PTOPEVAL1 ---
Assessment and note entered by Theodore Valdivia Evaluation Information Assessment Status Evaluation Diagnosis left arm pain Onset 12/09/21 Subjective Information Pt. reports that he has been experiencing left arm pain for 6 months. He states that he notices the hand locking up and sometimes cannot lift the left arm. Pt. reports that he is left hand dominant. Pt. reports that majority of pain can be around the forearm and hand. He reports that the arm is heavy and sometimes cannot lift the left arm. Pt. reports that he does smoke 2 packs cigarettes per day. He reports that pain is located in the neck and can radiate into the shoulder blades. He reports that he has had medicare insurance specialist for 3 weeks which did help to reduce pain. He reports that his goal is to reduce his left arm pain. Reported Pain Level Pain Score 4: Self Report Assessment PT Clinical Summary Pt. is a 66 year old male who enters the clinic with left arm pain secondary to cervical radiculopathy. He presents with mild proximal u.e . weakness, impaired c-spine ROM, impaired postural awareness and pain on this date. Continued skilled PT is indicated in order to improve these areas to allow for improved comfort with IADL performance. Plan of Care Interventions Hot Pack/Cold Pack,Manual Therapy,Neuro Re- education,Patient/Caregiver Educati,Therapeutic Activities,Therapeutic Exercise PT Services Indicated Yes Treatment Frequency and 3x/week x 12 visits Duration These treatments will address the objective and functional deficits as defined above. The patient will be advanced safely and appropriately in order for the patient to progress towards his/her prior level of function. Additional exercises will be introduced and as well as a comprehensive home exercise program upon discharge, if needed, ?to ensure carryover of functional gains achieved in the clinic. This treatment plan has been reviewed and agreement upon by the patient.
== END 2022-07-06 16:47 | disposition home or self-care (01) ==
LOC: CHSPT 14:57
DX: M79.602 Pain in left arm (principal)
CPT/HCPCS: 97110; 97140; 97161

== ENCOUNTER 2022-06-13 11:25 | Emergency (ER) | payer OTHER, SELFPAY ==
--- NOTE | ~2022-06-13 | XR_ITS ---
XR chest 2V DATE: 06/13/2022 13:22 INDICATION: Shortness of breath, cough for one week. Hypertension. History of CHF. TECHNIQUE: PA and lateral views COMPARISON: 04/17/2022 portable AP chest FINDINGS: Left AICD/pacemaker device with leads overlying right atrium and right ventricle. Heart siz e is within normal range. There is aortic arch calcification. No hilar or mediastinal enlargement. The lungs are hyperinflated moderately but clear of infiltrate or consolidation. No pleural effusion or pulmonary vascular congestion or pneumothorax is detected. IMPRESSION: Moderate hyperinflation; no active cardiac pulmonary disease Left AICD/dual-lead pacemaker device Reviewed, dictated and finalized at location B.
[2022-06-13 11:25] VITALS: BP 152/68; PULSE 63; RESP 16; TEMP 36.6; O2SAT 92
--- NOTE | 2022-06-13 11:45 | ED.EXTPRO ---
HPI - Extremity Problem General Chief complaint: Extremity Injury, Lower Stated complaint: swelling in legs Time Seen by Provider: 06/13/22 11:42 Source: patient and RN notes reviewed Mode of arrival: wheelchair Limitations: no limitations History of Present Illness HPI Narrative: patient states he does all of his medical followups [facility]. he says that when he begins having increased fluid that he doubles up on his Lasix. He recently saw on a a provider at the [facility] who thought they saw a shadow in his lung and start him on some Zithromax. He says he has since finished that. He has also feels like he has been retaining water but the increase in his Lasix has not helped. [facility] said [facility] just come to [facility] emergency room. He felt it was too far to drive to go to the [facility] today. MD Complaint: extremity swelling Onset (ago): day(s) (5) Pain Consistency: constant Location: left, right and lower extremity Radiation: none Relieving factors: nothing Exacerbating factors: nothing Associated symptoms: shortness of breath Related Data Home Medications Medication Instructions Recorded Confirmed Adult Low Dose Aspirin 81 mg PO DAILY 12/20/19 04/17/22 Nitrostat 0.4 mg sublingual DIRECTED 12/20/19 04/17/22 amiloride 5 mg PO DAILY 12/20/19 04/17/22 amiodarone 200 mg PO DAILY 12/20/19 04/17/22 budesonide 80 mcg inhalation BID 12/20/19 04/17/22 cholecalciferol (vitamin D3) 25 mcg BYMOUTH DAILY 12/20/19 04/17/22 doxazosin 8 mg PO DAILY 12/20/19 04/17/22 gabapentin 100 mg PO DAILY 12/20/19 04/17/22 lisinopril 40 mg PO DAILY 12/20/19 04/17/22 metoprolol succinate 200 mg PO DAILY 12/20/19 04/17/22 multivit with minerals-iron 18 1 tablet PO DAILY 12/20/19 04/17/22 mg-folic ac 400 mcg-vit K 25 mcg tablet (Adults Multivitamin) omeprazole 40 mg PO DAILY 12/20/19 04/17/22 pravastatin 10 mg PO DAILY 12/20/19 04/17/22 aspirin 81 mg tablet 81 mg PO DIRECTED 09/21/21 04/17/22 furosemide 20 mg tablet (Lasix) 20 mg PO DIRECTED 09/21/21 04/17/22 prednisone 10 mg tablets in a dose 0 mg PO PER PKG DIR 09/21/21 04/17/22 pack Allergies Allergy/AdvReac Type Severity Reaction Status Date / Time No Known Allergies Allergy Verified 06/13/22 11:50 Review of Systems Review of Systems: All systems reviewed & are unremarkable except as noted in HPI and below Cardiovascular: Cardiovascular: Denies chest pain PMFSH Past Medical History Medical History (Updated 06/13/22 @ 13:44 by Pasha Lozano MD) Back pain CAD (coronary artery disease) CHF (congestive heart failure) Chronic renal failure COPD (chronic obstructive pulmonary disease) Diabetes type 2, controlled GERD (gastroesophageal reflux disease) HTN (hypertension) PSVT (paroxysmal supraventricular tachycardia) Surgical History Surgical History AICD (automatic cardioverter/defibrillator) present Pacemaker Stented coronary artery Social History Social History Smoking status: Current every day smoker Substance use: never Living arrangements: with family Exam Const: General: no acute distress, alert and ill appearing chronically Nutritional Appearance: well nourished and obese centrally obese Orientation/consciousness: patient oriented x3 Limitations: no limitations HENMT: Head: normal to inspection Ears: external ears normal Face/Nose/Sinus: Normal external nose present Face and sinus: normal facial exam Mouth: Yes moist mucous membranes Eyes: Conjunctivae: conjunctivae normal Pupils: Equal, round and reactive pupils present EOM: EOMs intact bilaterally Neck: Neck: normal visual inspection Resp: Effort & Inspection: normal respiratory effort Auscultation: clear to auscultation bilaterally Cardio: Rate: regular rate Rhythm: regular rhythm GI: GI Palp: Yes Soft to palpation and No Tenderness to palpation present (GI) Ausculta
[2022-06-13 12:13] LABS: Hematocrit 39.3 % (37.0-46.0); Hemoglobin 12.7 g/dL (12.4-15.3); Mean Corpuscular HGB Conc 32.3 g/dL (32.0-36.0); Mean Corpuscular Hemoglobin 29.5 pg (27.0-31.0); Mean Corpuscular Volume 91.4 fL (78.0-102.0); Mean Platelet Volume 8.8 fl (8.7-11.0); Platelet Count Result 261 K/mm3 (150-420); Red Cell Distribution Width 14.5 % (11.6-14.4); White Blood Count 7.1 K/mm3 (4.8-10.8)
[2022-06-13 12:15] VITALS: BP 140/65; PULSE 60; RESP 20; TEMP 36.4; O2SAT 92
[2022-06-13 12:34] LABS: Total Cells Counted 100
[2022-06-13 12:35] LABS: Band Neutrophils Percent 0 % (0-6); Eosinophils Absolute Manual 0.99 K/mm3 (0.02-0.5); Eosinophils Percent Manual 14 % (1-6); Lymphocytes Absolute Manual 2.34 K/mm3 (1.1-4.5); Lymphocytes Percent Manual 33 % (18-44); Monocytes Absolute Manual 0.35 K/mm3 (0.1-0.90); Monocytes Percent Manual 5 % (3-9); Neutrophils Percent Manual 48 % (46-73); Platelet Estimate Adequate (Adequate)
[2022-06-13 12:38] LABS: Alanine Aminotransferase 28 U/L (16-63); Albumin Level 3.7 g/dL (3.4-5.0); Alkaline Phosphatase 40 U/L (46-116); Anion Gap 9 mmol/L (8-16); Aspartate Amino Transferase 21 U/L (15-37); Bilirubin,Total 0.4 mg/dL (0.00-1.00); Blood Urea Nitrogen 20 mg/dL (7-18); CRP 1.1 mg/dL (0.0-0.9); Calcium 8.9 mg/dL (8.5-10.1); Carbon Dioxide 30 mmol/L (21-32); Chloride 104 mmol/L (98-108); Estimated CRCL calculation 97 ml/min; Estimated Glomerular Filt Rate 55; Glucose 101 mg/dL (70-99); Magnesium 1.8 mg/dL (1.8-2.4); NT Pro B Type Natriuretic Pept 943 pg/mL (0-125); Osmolality Calculated 298 mOsm/kg (285-295); Sodium 143 mmol/L (136-145); Total Protein 7.4 g/dL (6.4-8.2)
[2022-06-13 13:59] VITALS: BP 134/73; PULSE 66; RESP 18; O2SAT 92
== END 2022-06-13 14:05 | disposition home or self-care (01) ==
PROVIDERS: Emergency Provider Emergency Medicine
DX: R60.0 Localized edema (principal); I25.10 Atherosclerotic heart disease of native coronary artery without angina pectoris; I13.0 Hypertensive heart and chronic kidney disease with heart failure and stage 1 through stage 4 chronic kidney disease, or unspecified chronic kidney disease; I50.9 Heart failure, unspecified; N18.9 Chronic kidney disease, unspecified; E11.22 Type 2 diabetes mellitus with diabetic chronic kidney disease; J44.9 Chronic obstructive pulmonary disease, unspecified; F17.200 Nicotine dependence, unspecified, uncomplicated
CPT/HCPCS: 36415; 71046; 80053; 83735; 83880; 85025; 86140; 99283

== ENCOUNTER 2022-07-23 10:29 | Emergency (ER) | payer OTHER, SELFPAY ==
[2022-07-23 10:31] VITALS: BP 107/87; PULSE 64; RESP 20; TEMP 36.3; O2SAT 96
[2022-07-23 10:35] VITALS: BP 107/87; PULSE 64; RESP 20; TEMP 36.3; O2SAT 96
--- NOTE | 2022-07-23 10:48 | ED.GENADULT ---
HPI - General Adult General Chief complaint: Wound/Laceration Stated complaint: Boil left groin/leg Time Seen by Provider: 07/23/22 10:38 History of Present Illness HPI narrative: 66yo man with recurrent cellulitis and abscess to the left buttock, presents with increased redness, swelling, and pain to that same site over the past 5 days. No fever. No pain with defecatiaon. He does warm compresses and squeezes out pus whenever he can. He had gotten it down to a pea-size and now is increasing in pain again. Related Data Home Medications Medication Instructions Recorded Confirmed Adult Low Dose Aspirin 81 mg PO DAILY 12/20/19 04/17/22 Nitrostat 0.4 mg sublingual DIRECTED 12/20/19 04/17/22 amiloride 5 mg PO DAILY 12/20/19 04/17/22 amiodarone 200 mg PO DAILY 12/20/19 04/17/22 budesonide 80 mcg inhalation BID 12/20/19 04/17/22 cholecalciferol (vitamin D3) 25 mcg BYMOUTH DAILY 12/20/19 04/17/22 doxazosin 8 mg PO DAILY 12/20/19 04/17/22 gabapentin 100 mg PO DAILY 12/20/19 04/17/22 lisinopril 40 mg PO DAILY 12/20/19 04/17/22 metoprolol succinate 200 mg PO DAILY 12/20/19 04/17/22 multivit with minerals-iron 18 1 tablet PO DAILY 12/20/19 04/17/22 mg-folic ac 400 mcg-vit K 25 mcg tablet (Adults Multivitamin) omeprazole 40 mg PO DAILY 12/20/19 04/17/22 pravastatin 10 mg PO DAILY 12/20/19 04/17/22 aspirin 81 mg tablet 81 mg PO DIRECTED 09/21/21 04/17/22 furosemide 20 mg tablet (Lasix) 20 mg PO DIRECTED 09/21/21 04/17/22 Allergies Allergy/AdvReac Type Severity Reaction Status Date / Time No Known Allergies Allergy Verified 07/23/22 10:37 Review of Systems Review of Systems: All systems reviewed & are unremarkable except as noted in HPI and below Constitutional: Constitutional: Denies fever(s) ENT: Denies dizziness Cardiovascular: Cardiovascular: Denies chest pain Respiratory: Respiratory: Denies chest congestion and Denies dyspnea PMFSH Past Medical History Medical History Back pain CAD (coronary artery disease) CHF (congestive heart failure) Chronic renal failure COPD (chronic obstructive pulmonary disease) Diabetes type 2, controlled GERD (gastroesophageal reflux disease) HTN (hypertension) PSVT (paroxysmal supraventricular tachycardia) Surgical History Surgical History AICD (automatic cardioverter/defibrillator) present Pacemaker Stented coronary artery Social History Social History Smoking status: Current every day smoker Substance use: never Living arrangements: with family Exam Const: General: healthy appearing, no acute distress and alert Nutritional Appearance: well nourished Orientation/consciousness: patient oriented x3 Eyes: Conjunctivae: conjunctivae normal Resp: Effort & Inspection: normal respiratory effort Cardio: Rate: regular rate Rhythm: regular rhythm Skin: General skin exam: normal color, no jaundice and no pallor Other: there is a large 4x10 cm patch of erythema on the left medial buttocks. There is thickening of the skin and scarred induration but no discrete mass, no fluctuance. Neuro: General: patient oriented x3 and moves all extremities Extrem: General: normal to inspection and no pedal edema Course Vital Signs Vital signs: Vital Signs Temperature 36.3 C L 07/23/22 10:31 Pulse Rate 64 07/23/22 10:31 Respiratory Rate 07/23/22 10:31 Blood Pressure 107/87 07/23/22 10:31 Pulse Oximetry 96 07/23/22 10:31 Oxygen Delivery Room Air 07/23/22 10:31 Temperature 36.3 C L 07/23/22 11:20 Pulse Rate 64 07/23/22 11:20 Respiratory Rate 20 07/23/22 11:20 Blood Pressure 107/87 07/23/22 11:20 Pulse Oximetry 96 07/23/22 11:20 Oxygen Delivery Room Air 07/23/22 11:20 Medical Decision Making MDM Narrative Medical decision making narr
[2022-07-23] MEDS: cefTRIAXone 1 GM, LIDOCAINE HCL 1% LOCAL INJ 2.1 ML IM (11:00)
[2022-07-23 11:20] VITALS: BP 107/87; PULSE 64; RESP 20; TEMP 36.3; O2SAT 96
== END 2022-07-23 11:20 | disposition home or self-care (01) ==
LOC: CHSED 11:07
PROVIDERS: Emergency Provider Emergency Medicine
DX: L03.317 Cellulitis of buttock (principal); I25.10 Atherosclerotic heart disease of native coronary artery without angina pectoris; I13.0 Hypertensive heart and chronic kidney disease with heart failure and stage 1 through stage 4 chronic kidney disease, or unspecified chronic kidney disease; I50.9 Heart failure, unspecified; N18.9 Chronic kidney disease, unspecified; E11.22 Type 2 diabetes mellitus with diabetic chronic kidney disease; F17.200 Nicotine dependence, unspecified, uncomplicated
CPT/HCPCS: 96372; 99283; J0696

== ENCOUNTER 2024-01-12 18:37 | Emergency (ER) | payer OTHER, SELFPAY ==
[2024-01-12 18:37] VITALS: BP 118/51; PULSE 72; RESP 20; TEMP 37.4; O2SAT 95
--- NOTE | 2024-01-12 19:08 | ED.SKABFB ---
HPI - Skin/Abscess/Foreign Bdy General Chief complaint: Skin/Abscess/Foreign Body Stated complaint: abscess to groin Source: patient Mode of arrival: ambulatory Limitations: no limitations History of Present Illness HPI narrative: PATIENT DROVE HIMSELF TO THE EMERGENCY ROOM COMPLAINING OF AN ABSCESS AT THE BACK OF LEFT THIGH STARTED OVER 1 WEEK AGO. [facility] AND [facility] STARTED ON KEFLEX AND SEPTRA 4 DAYS AGO WITHOUT ANY IMPROVEMENT. THE PAIN IS GETTING WORSE. HISTORY OF HYPERTENSION, HYPERLIPIDEMIA, COPD, CORONARY STENTS. CURRENTLY ON BABY ASPIRIN ONCE A DAY. PATIENT DOES SMOKE CIGARETTES, DENIES DRINKING OR MARIJUANA USE. PATIENT DENIES ANY FEVER, CHILLS, NAUSEA, VOMITING, HEADACHE, ABDOMINAL PAIN, CHEST PAIN OR SHORTNESS OF BREATH. Related Data Home Medications Medication Instructions Recorded Confirmed Adult Low Dose Aspirin 81 mg PO DAILY 12/20/19 04/17/22 Nitrostat 0.4 mg sublingual DIRECTED 12/20/19 04/17/22 amiloride 5 mg PO DAILY 12/20/19 04/17/22 amiodarone 200 mg PO DAILY 12/20/19 04/17/22 budesonide 80 mcg inhalation BID 12/20/19 04/17/22 cholecalciferol (vitamin D3) 25 mcg BYMOUTH DAILY 12/20/19 04/17/22 doxazosin 8 mg PO DAILY 12/20/19 04/17/22 gabapentin 100 mg PO DAILY 12/20/19 04/17/22 lisinopril 40 mg PO DAILY 12/20/19 04/17/22 metoprolol succinate 200 mg PO DAILY 12/20/19 04/17/22 multivit with minerals-iron 18 1 tablet PO DAILY 12/20/19 04/17/22 mg-folic ac 400 mcg-vit K 25 mcg tablet (Adults Multivitamin) omeprazole 40 mg PO DAILY 12/20/19 04/17/22 pravastatin 10 mg PO DAILY 12/20/19 04/17/22 aspirin 81 mg tablet 81 mg PO DIRECTED 09/21/21 04/17/22 furosemide 20 mg tablet (Lasix) 20 mg PO DIRECTED 09/21/21 04/17/22 Allergies Allergy/AdvReac Type Severity Reaction Status Date / Time No Known Allergies Allergy Verified 07/23/22 10:37 Review of Systems Review of Systems: All systems reviewed & are unremarkable except as noted in HPI and below PMFSH Past Medical History Medical History Back pain CAD (coronary artery disease) CHF (congestive heart failure) Chronic renal failure COPD (chronic obstructive pulmonary disease) Diabetes type 2, controlled GERD (gastroesophageal reflux disease) HTN (hypertension) PSVT (paroxysmal supraventricular tachycardia) Surgical History Surgical History AICD (automatic cardioverter/defibrillator) present Pacemaker Stented coronary artery Social History Social History Smoking status: Current every day smoker Substance use: never Living arrangements: with family Exam Narrative: GENERAL APPEARANCE: WELL-DEVELOPED, WELL-NOURISHED SKIN: NORMAL COLOR , LEFT THIGH EXAM SHOWED 15 X 20 CM ERYTHEMA WITH POSITIVE FLUCTUATION CENTRALLY AT THE POSTERIOR MEDIAL UPPER THIGH HEAD: NORMOCEPHALIC, NONTRAUMATIC CHEST AND RESPIRATORY: AIRWAY PATENT, NO RESPIRATORY DISTRESS, NO ACCESSORY MUSCLE USE HEART: REGULAR RATE/RHYTHM ABDOMEN: SOFT, NONTENDER, NO ORGANOMEGALY, QUIET BOWEL SOUNDS VASCULAR: NORMAL PERIPHERAL PULSES, NORMAL CAPILLARY REFILL. MUSCULOSKELETAL: NORMAL RANGE OF MOTION, NONTENDER BACK NEUROLOGIC: ALERT AND ORIENTED ?3, WATER RESOURCES PROJECT MANAGER IS NORMAL TESTED, NO GROSS MOTOR DEFICIT Course Consultations Consultation #1: DR VELASQUEZ ACCEPTING PHYSICIAN AT [facility] Date: 01/12/24 Time: 20:45 Vital Signs Vital signs: Vital Signs Temperature 37.4 C 01/12/24 18:37 Pulse Rate 72 01/12/24 18:37 Respiratory Rate 20 01/12/24 18:37 Blood Pressure 118/51 L 01/12/24 18:37 Puls
[2024-01-12 19:35] LABS: Basophils Absolute Auto 0.03 K/mm3 (0.00-0.10); Basophils Percent Auto 0.2 % (0.0-1.0); Eosinophils Absolute Auto 0.05 K/mm3 (0.02-0.50); Eosinophils Percent Auto 0.4 % (1.0-6.0); Hematocrit 32.3 % (37.0-46.0); Hemoglobin 10.9 g/dL (12.4-15.3); Immature Granulocyte Absolute 0.05 K/mm3 (0.00-0.00); Immature Granulocyte Percent A 0.4 % (0.0-0.0); Lymphocytes Absolute Auto 1.39 K/mm3 (1.10-4.50); Lymphocytes Percent Auto 11.3 % (18.0-42.0); Mean Corpuscular HGB Conc 33.7 g/dL (32-36); Mean Corpuscular Hemoglobin 30.4 pg (27.0-31.0); Mean Corpuscular Volume 90.2 fL (78.0-102.0); Mean Platelet Volume 8.7 fl (8.7-11.0); Monocytes Absolute Auto 0.94 K/mm3 (0.10-0.90); Monocytes Percent Auto 7.7 % (2.0-11.0); Neutrophils Absolute Auto 9.82 K/mm3 (1.70-7.20); Platelet Count Result 280 K/mm3 (150-420); Red Blood Count 3.58 M/mm3 (4.70-6.10); Red Cell Distribution Width 14.1 % (11.6-14.4); White Blood Count 12.3 K/mm3 (4.8-10.8)
[2024-01-12 19:50] LABS: Alanine Aminotransferase 18 U/L (16-63); Alkaline Phosphatase 40 U/L (46-116); Anion Gap 11 mmol/L (4-12); Aspartate Amino Transferase 14 U/L (15-37); Bilirubin,Total 0.5 mg/dL (0.00-1.00); Blood Urea Nitrogen 25 mg/dL (7-18); Calcium 8.8 mg/dL (8.5-10.1); Carbon Dioxide 26 mmol/L (21-32); Chloride 98 mmol/L (98-108); Estimated CRCL calculation 46 ml/min; Estimated Glomerular Filt Rate 42; Glucose 102 mg/dL (70-99); Osmolality Calculated 284 mOsm/kg (285-295); Potassium 4.5 mmol/L (3.5-5.1); Sodium 135 mmol/L (136-145); Total Protein 7.1 g/dL (6.4-8.2)
[2024-01-12 19:53] LABS: Lactic Acid Reflex 1.2 mmol/L (0.4-2.0)
[2024-01-12 19:55] LABS: CRP 17.4 mg/dL (0.0-0.9)
[2024-01-12] MEDS: SODIUM CHLORIDE 0.9% IV 1,000 ML 999 ML IV CONT (20:26)
[2024-01-12] MEDS: VANCOMYCIN 1,500 MG/NS 500 ML 1,500 MG/500 ML BAG 333.33 MG IVPB (20:28)
[2024-01-12 20:40] LABS: SARS-CoV-2 RNA PCR Negative (Negative)
[2024-01-12 20:43] LABS: Influenza A QL RT-PCR Negative (Negative); Influenza B QL RT-PCR Negative (Negative); RSV RNA, RT-PCR Negative (Negative)
[2024-01-12 20:58] VITALS: BP 113/53; PULSE 68; RESP 20; TEMP 37; O2SAT 98
[2024-01-12 21:40] VITALS: BP 110/84; PULSE 85; RESP 20; O2SAT 97
[2024-01-12 22:25] VITALS: BP 113/74; PULSE 74; RESP 20; TEMP 36.9; O2SAT 97
--- NOTE | 2024-01-14 12:42 | PC.NURSE ---
preliminary blood cultures x2 reviewed. no growth to date
== END 2024-01-12 22:25 | disposition left against medical advice (07) ==
PROVIDERS: Emergency Provider Emergency Medicine
DX: L02.416 Cutaneous abscess of left lower limb (principal); N17.9 Acute kidney failure, unspecified; I25.10 Atherosclerotic heart disease of native coronary artery without angina pectoris; E78.5 Hyperlipidemia, unspecified; J44.9 Chronic obstructive pulmonary disease, unspecified; I13.0 Hypertensive heart and chronic kidney disease with heart failure and stage 1 through stage 4 chronic kidney disease, or unspecified chronic kidney disease; I50.9 Heart failure, unspecified; N18.9 Chronic kidney disease, unspecified; E11.22 Type 2 diabetes mellitus with diabetic chronic kidney disease; F17.210 Nicotine dependence, cigarettes, uncomplicated; Z79.82 Long term (current) use of aspirin; Z20.822 Contact with and (suspected) exposure to COVID-19
CPT/HCPCS: 36415; 80053; 83605; 85025; 86140; 87040; 87637; 96365; 96366; 99284; J3370; J7030

== ENCOUNTER 2024-09-07 10:17 | Emergency (ER) | payer OTHER, SELFPAY ==
[2024-09-07] VITALS (50 sets, daily range): BP systolic 71–129; BP diastolic 43–94; PULSE 57–97; RESP 14–20; TEMP 36.4–36.8; O2SAT 93–100
--- OUTSIDE RECORDS SUMMARY | 2024-09-07 10:23 | XMS_ITS | Data Portability ---
Author Organization [facility], [address] [place] [address] Neurology (CT) Address [address] [place] [address] Care Team Providers Care Film Developer Name Role Phone KAITLIN FUENTES Assistant Federal Public Defender [phone] DANNY CONTRERAS Primary Care Provider Assessment Encounter Date Assessment Date Assessment LastModified by Organization Details LastModified Time 02/05/2024 02/05/2024 Patient comes ba ck today in follow-up regarding his left inner thigh cellulitis. This is now all mostly resolved. I do not see a distinct abscess. Even though this is not happened for the third time I think we should watch it as I do not see anything to drain. The patient is a smoker. Pros and cons regarding continuing, slowing down, and/or stopping smoking for the procedure was discussed which include but are not limited to would healing issues, vascular compromise, breathing issues intra/postop, excess bleeding, hematoma, blood clots, embolism strokes, cardiac events. The patient understood and verbalized understanding. Evaluation of his skin reveals he does have some actinic keratoses For all the above problems unless otherwise indicated the findings and treatment options were discussed. The patient wishes to observe them which I think is appropriate. We discussed signs and symptoms which would require reevaluation. They will contact us if this occurs. They verbalized understanding of all this. [email or web address] Not available 02/05/2024 10:13:58 02/16/2024 02/16/2024 Mr. Deshpande is a pleasant 68-year-old male with a past medical history significant for hypertension, hyperlipidemia, atrial fibrillation, chronic kidney disease stage III with a baseline serum creatinine ranging between 1.2 1.4 who is here for a follow-up appointment. Graph chronic kidney disease stage III with baseline serum creatinine range between 1.2 1.4. Patient's most recent serum creatinine is noted to be 1.3 with a GFR of 58. Fluid and electrolyte balance are adequate. Patient's microalbumin/creat inine ratio was noted to be very minimal at 11. Patient continues to hydrate well and to avoid NSAIDs. Continue to monitor renal function panel at regular intervals. Discussed about KDIGO recommendations to prevent CKD progression -Advised to undertake moderate-intensity physical activity for a cumulative duration of at least 150 minutes per week, or to a level compatible with their cardiovascular and physical tolerance -Patients should consume a balanced, healthy diet that is high in vegetables, , plant-based proteins, unsaturated fats, and lower in processed meats, refined carbohydrates, and sweetened beverages. -Sodium (<2 g/day) and protein intake (0.8 g/kg/day) in accordance with recommendations for the general population. - Suggest NOT to prescribe bisphosphonate treatment in people with GFR o30 ml/min/1.73 m2 (GFR categories G4-G5) without a strong clinical rationale. -Individualize Hba1c target goal of 6.5 to 8 % based on underlying comorbidities -Cessation of tobacco -Avoid Nephrotoxic agents -such as NSAIDS renal dosage of all medications to the appropriate GFR -Reduce albuminuria with use of CHARLA inhibitor or ARB -initiation of SGLT-2 Inhibitors if appropriate indication. 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 Anemia of chronic disease Patient's hemoglobin is stable with no indication for ELENA. Hypertension Patient's blood pressure is under good control. Patient will continue with his current med regimen and continue to follow a low-sodium diet. The patient had the opportunity to ask and have questions answered. The patient voiced an understanding of the diagnosis and of the care plan and intent to comply with it. [email or web address] Not available 02/16/2024 14:26:38 06/17/2024 06/17/2024 South has 150 pa ck years of smoking, severe COPD, CAD, HFrEF (EF 20%), AICD/pacemaker implantation. Counseled about smoking cessation for 3 minutes. Continue Stiolto once a day, Asmanex, and montelukast 10 mg at nighttime. Albuterol for rescue. Left basal opacity is unchanged since his initial detection in May 2022. Is unlikely to be malignant at this point. Continue annual low-dose CT. He will be due circa 12/17/2024. Exertional dyspnea is multifactorial - obesity, deconditioning, HFrEF, COPD, anemia, and continued smoking. 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 Yonathan Kellogg. Recommended exercise and weight loss. RTC in November with low-dose CT and spirometry. Not available 06/17/2024 11:51:42 08/22/2024 08/22/2024 Mr. Deshpande is a pleasant 68-year-old male with a past medical history significant for hypertension, hyperlipidemia, atrial fibrillation, chronic kidney disease stage III with a baseline serum creatinine ranging between 1.2 1.4 who is here for a follow-up appointment. chronic kidney disease stage III with baseline serum creatinine range between 1.2 1.4. CKD stage 3 -Patient's most recent serum creatinine is noted to be 1.3 with a GFR of 58. Fluid and electrolyte balance are adequate. Patient's microalbumin/creat inine ratio was noted to be very minimal at 11. Patient continues to hydrate well and to avoid NSAIDs. Continue to monitor renal function panel at regular intervals. on and off on Bactrim for abscess Discussed about KDIGO recommendations to prevent CKD progression -Advised to undertake moderate-intensity physical activity for a cumulative duration of at least 150 minutes per week, or to a level compatible with their cardiovascular and physical tolerance -Patients should consume a balanced, healthy diet that is high in vegetables, , plant-based proteins, unsaturated fats, and lower in processed meats, refined carbohydrates, and sweetened beverages. -Sodium (<2 g/day) and protein intake (0.8 g/kg/day) in accordance with recommendations for the general population. - Suggest NOT to prescribe bisphosphonate treatment in people with GFR o30 ml/min/1.73 m2 (GFR categories G4-G5) without a strong clinical rationale. -Individualize Hba1c target goal of 6.5 to 8 % based on underlying comorbidities -Cessation of tobacco -Avoid Nephrotoxic agents -such as NSAIDS renal dosage of all medications to the appropriate GFR -Reduce albuminuria with use of CHARLA inhibitor or ARB -initiation of SGLT-2 Inhibitors if appropriate indication. 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 Anemia of chronic disease Patient's hemoglobin is stable with no indication for ELENA. Hypertension Patient's blood pressure is under good control. Patient will continue with his current med regimen and continue to follow a low-sodium diet. The patient had the opportunity to ask and have questions answered. The patient voiced an understanding of the diagnosis and of the care plan and intent to comply with it. CBC, renal function panel, urine microalbumin/creat inine ratio prior to next appointment Labs today follow up in 6 months [email or web address] Not available 08/22/2024 10:06:14 Plan of Treatment Reminders Order Date Submit Date Provider Last Modified By Organization Details Last Modified Time Details Appointments Patient 15.EST 2024 09:45A M Diana Murphy Not available Not available Not available Imaging 5.PRO 2024 09:30A M Radiology Not available Not available Not available Alexis w Exercise Oximetry .PRO 2024 10:00A M Pulmonary Diseases & Sleep Medicine Not available Not available Not available Patient 20.EST 2024 10:40A M Edna Smith Not available Not available Not available Patient 15.EST 2024 10:00A M Dr. Frances Acevedo Not available Not available Not available Patient 15.EST 2024 08:30A M Afia Campo Not available Not available Not available Lab None recorded . Referral None recorded . Procedures None recorded . Surgeries None recorded . Imaging None recorded . Medication Orders None recorded . Patient TargetsNo targets recorded. Patient Instructions Encounter Date Encounter Id Patient Instructions Last Modified By Organization Details Last Modified Time 06/17/2024 [id number] smoking cessatio n counseling, greater than 3 minutes up to 10 minutes [email or web address] Not available 06/17/2024 11:51:53 Reason for Referral None Reported. Results Created Date Observation Date Name Description Value Unit Range Abnormal Flag Note LastModifiedBy Organization Detail LastModifiedTime 02/05/2002/05/2024 CBC CBC Not Available [facility] [address] [place] [address], [id number], 02/05/2024 17:58:12 02/05/2002/05/2024 CBC WBC 7.6 K/uL 4.8- 10.8 Not Available [facility] [address] [place] [address], [id number], 02/05/2024 17:58:12 02/05/20 24 02/05/2024 CBC RBC 3.89 M/uL 4.70-6 .10 low Not Available [facility] [address] [place] [address], [id number], 02/05/2024 17:58:12 02/05/20 24 02/05/2024 CBC HGB 11.7 g/dL 14.0-1 8.0 low Not Available [facility] [address] [place] [address], [id number], 02/05/2024 17:58:12 02/05/20 24 02/05/2024 CBC HCT 36.0 % 42.0-5 2.0 low Not Available [facility] [address] [place] [address], [id number], 02/05/2024 17:58:12 02/05/20 24 02/05/2024 CBC MCV 92.5 fL 80.0-9 4.0 Not Available [facility] [address] [place] [address], [id number], 02/05/2024 17:58:12 02/05/20 24 02/05/2024 CBC MCH 30.1 pg 27.0- 31.0 Not Available [facility] [address] [place] [address], [id number], 02/05/2024 17:58:12 02/05/20 24 02/05/2024 CBC MCHC 32.5 g/dL 32.0-3 6.0 Not Available [facility] [address] [place] [address], [id number], 02/05/2024 17:58:12 02/05/20 24 02/05/2024 CBC RDW-SD 51.5 fL 35.1 - 46.3 high Not Available [facility] [address] [place] [address], [id number], 02/05/2024 17:58:12 02/05/20 24 02/05/2024 CBC plt 333 K/uL 130-40 0 Not Available [facility] [address] [place] [address], [id number], 02/05/2024 17:58:12 02/05/20 24 02/05/2024 CBC MPV 9.4 fL 7.5- 11.8 Not Available [facility] [address] [place] [address], [id number], 02/05/2024 17:58:12 02/05/20 24 02/05/2024 renal funct ion panel , serum renal function panel Not Available [facility] [address] [place] [address], [id number], 02/05/2024 18:05:43 02/05/20 24 02/05/2024 renal funct ion panel , serum sodium 138 mmol/ L 136-14 6 Not Available [facility] [address] [place] [address], [id number], 02/05/2024 18:05:43 02/05/20 24 02/05/2024 renal funct ion panel , serum potassium 4.7 mmol/ L 3.5-5. 1 Not Available [facility] [address] [place] [address], [id number], 02/05/2024 18:05:43 02/05/20 24 02/05/2024 renal funct ion panel , serum chloride 107 mmol/ L 98-110 Not Available [facility] [address] [place] [address], [id number], 02/05/2024 18:05:43 02/05/20 24 02/05/2024 renal funct ion panel , serum CO2 26 mEq/L 20-32 Not Available [facility] [address] [place] [address], [id number], 02/05/2024 18:05:43 02/05/20 24 02/05/2024 renal funct ion panel , serum anion gap 10 mmol/ L 10-22 Not Available [facility] [address] [place] [address], [id number], 02/05/2024 18:05:43 02/05/20 24 02/05/2024 renal funct ion panel , serum glucose 98 mg/dL 70-100 Not Available [facility] [address] [place] [address], 42508, 02/05/2024 18:05:43 02/05/20 24 02/05/2024 renal funct ion panel , serum calcium 9.6 mg/dL 8.4-10 .4 Not Available [facility] [address] [place] [address], [id number], 02/05/2024 18:05:43 02/05/20 24 02/05/2024 renal funct ion panel , serum albumin 4.3 g/dL 3.5-5. 3 Not Available [facility] [address] [place] [address], [id number], 02/05/2024 18:05:43 02/05/20 24 02/05/2024 renal funct ion panel , serum phosphorus 4.3 mg/dL 2.7-4. 5 Not Available [facility] [address] [place] [address], [id number], 02/05/2024 18:05:43 02/05/20 24 02/05/2024 renal funct ion panel , serum BUN 20 mg/dL 7-21 Not Available [facility] [address] [place] [address], [id number], 02/05/2024 18:05:43 02/05/20 24 02/05/2024 renal funct ion panel , serum creatinine 1.3 mg/dL 0.7-1. 3 Not Available [facility] [address] [place] [address], [id number], 02/05/2024 18:05:43 02/05/20 24 02/05/2024 renal funct ion panel , serum GFR(non-afri can chadian) 58 Not Available [facility] [address] [place] [address], [id number], 02/05/2024 18:05:43 02/05/20 24 02/05/2024 renal funct ion panel , serum GFR() 70 (SACK REPAIRER ARIANA KIDNE Y DISEA SE HAS A GFR LESS THAN 60 ML/MS N/1.7 3 MM FOR A PERIO D OF THREE MONTH S OR MORE. ) Not Available [facility] [address] [place] [address], [id number], 02/05/2024 18:05:43 02/05/20 24 02/06/2024 micro album in, urine microalbumin ,random panel Not Available [facility] [address] [place] [address], [id number], 02/06/2024 08:51:43 02/05/20 24 02/06/2024 micro album in, urine microalbumin random 1.2 mg/dL Not Available [facility] [address] [place] [address], [id number], 02/06/2024 08:51:43 02/05/20 24 02/06/2024 micro album in, urine creatinine, urine random 108 mg/dL Refer ence range not estab lishe d for other than 24 hour colle ction . Not Available [facility] [address] [place] [address], [id number], 02/06/2024 08:51:43 02/05/20 24 02/06/2024 micro album in, urine microalb/cre at ratio 11 ug/mg (Micr oalbu min/C reati nine Ratio : Tara l: <30 UG/MG Creat Micro album inuri a: 30-30 0 UG/MG Creat Clini blanca Album inuri a: >300 UG/MG Creat The class ifica tion of a patie nt's prote inuri a shoul d be based upon at least 2 or 3 abnor mal resul ts colle cted withi n a 3 to 6 month time frame . *No tara l range s have been estab lishe d for rando m Micro album in or Creat inine .) Not Available [facility] [address] [place] [address], [id number], 02/06/2024 08:51:43 08/23/1908/22/2024 CBC CBC Not Available [facility] [address] [place] [address], [id number], 08/22/2024 12:37:39 08/23/1908/22/2024 CBC WBC 8.9 K/uL 4.8- 10.8 Not Available [facility] [address] [place] [address], [id number], 08/22/2024 12:37:39 08/23/1908/22/2024 CBC RBC 3.93 M/uL 4.70-6 .10 low Not Available [facility] [address] [place] [address], [id number], 08/22/2024 12:37:39 08/23/1908/22/2024 CBC HGB 11.5 g/dL 14.0-1 8.0 low Not Available [facility] [address] [place] [address], 48592, 08/22/2024 12:37:39 08/23/1908/22/2024 CBC HCT 35.2 % 42.0-5 2.0 low Not Available [facility] [address] [place] [address], [id number], 08/22/2024 12:37:39 08/23/1908/22/2024 CBC MCV 89.6 fL 80.0-9 4.0 Not Available [facility] [address] [place] [address], [id number], 08/22/2024 12:37:39 08/23/19 25 08/22/2024 CBC MCH 29.3 pg 27.0- 31.0 Not Available [facility] [address] [place] [address], [id number], 08/22/2024 12:37:39 08/23/19 25 08/22/2024 CBC MCHC 32.7 g/dL 32.0-3 6.0 Not Available [facility] [address] [place] [address], [id number], 08/22/2024 12:37:39 08/23/19 25 08/22/2024 CBC RDW-SD 50.7 fL 35.1 - 46.3 high Not Available [facility] [address] [place] [address], [id number], 08/22/2024 12:37:39 08/23/19 25 08/22/2024 CBC plt 387 K/uL 130-40 0 Not Available [facility] [address] [place] [address], [id number], 08/22/2024 12:37:39 08/23/1908/22/2024 CBC MPV 9.2 fL 7.5- 11.8 Not Available [facility] [address] [place] [address], [id number], 08/22/2024 12:37:39 08/23/1908/22/2024 renal funct ion panel , serum renal function panel Not Available [facility] [address] [place] [address], 73200, 08/22/2024 13:36:54 08/23/19 25 08/22/2024 renal funct ion panel , serum sodium 138 mmol/ L 136-14 6 Not Available [facility] [address] [place] [address], 60905, 08/22/2024 13:36:54 08/23/19 25 08/22/2024 renal funct ion panel , serum potassium 4.7 mmol/ L 3.5-5. 1 Not Available [facility] [address] [place] [address], 83477, 08/22/2024 13:36:54 08/23/19 25 08/22/2024 renal funct ion panel , serum chloride 105 mmol/ L 98-110 Not Available [facility] [address] [place] [address], [id number], 08/22/2024 13:36:54 08/23/19 25 08/22/2024 renal funct ion panel , serum CO2 27 mEq/L 20-32 Not Available [facility] [address] [place] [address], 46959, 08/22/2024 13:36:54 08/23/1908/22/2024 renal funct ion panel , serum anion gap 11 mmol/ L 10-22 Not Available [facility] [address] [place] [address], 36425, 08/22/2024 13:36:54 08/23/1908/22/2024 renal funct ion panel , serum glucose 102 mg/dL 70-100 high Not Available [facility] [address] [place] [address], 51631, 08/22/2024 13:36:54 08/23/1908/22/2024 renal funct ion panel , serum calcium 9.3 mg/dL 8.4-10 .4 Not Available [facility] [address] [place] [address], 37789, 08/22/2024 13:36:54 08/23/1908/22/2024 renal funct ion panel , serum albumin 4.4 g/dL 3.5-5. 3 Not Available [facility] [address] [place] [address], [id number], 08/22/2024 13:36:54 08/23/1908/22/2024 renal funct ion panel , serum phosphorus 4.7 mg/dL 2.7-4. 5 high Not Available [facility] [address] [place] [address], 72596, 08/22/2024 13:36:54 08/23/1908/22/2024 renal funct ion panel , serum BUN 27 mg/dL 7-21 high Not Available [facility] [address] [place] [address], 82295, 08/22/2024 13:36:54 08/23/1908/22/2024 renal funct ion panel , serum creatinine 1.5 mg/dL 0.7-1. 3 high Not Available [facility] [address] [place] [address], [id number], 08/22/2024 13:36:54 08/23/1908/22/2024 renal funct ion panel , serum CKD-epi GFR 50 low eGFR was calcu lated using the 2020 CKD-E PI equat ion. (Green Hide Inspector ariana Kidne y Disea se has an eGFR less than 60 mL/mi n/1.7 3mm for a perio d of three month s or more. ) This calcu latio n has not been valid ated for patie nt ages <18 or >90 years old. Not Available [facility] [address] [place] [address], [id number], 08/22/2024 13:36:54 08/23/1908/22/2024 micro album in, urine microalbumin ,random panel Not Available [facility] [address] [place] [address], 79630, 08/22/2024 14:39:58 08/23/1908/22/2024 micro album in, urine microalbumin random 1.0 mg/dL Not Available [facility] [address] [place] [address], [id number], 08/22/2024 14:39:58 08/23/19 25 08/22/2024 micro album in, urine creatinine, urine random 77 mg/dL Refer ence range not estab lishe d for other than 24 hour colle ction . Not Available [facility] [address], [address], 08/22/2024 14:39:58 08/23/19 25 08/22/2024 micro album in, urine microalb/cre at ratio 13 ug/mg (Micr oalbu min/C reati nine Ratio : Tara l: <30 UG/MG Creat Micro album inuri a: 30-30 0 UG/MG Creat Clini blanca Album inuri a: >300 UG/MG Creat The class ifica tion of a patie nt's prote inuri a shoul d be based upon at least 2 or 3 abnor mal resul ts colle cted withi n a 3 to 6 month time frame . *No tara l range s have been estab lishe d for rando m Micro album in or Creat inine .) Not Available [facility] [address], 248[address], 08/22/2024 14:39:58 01/23/20 24 06/13/2023 imagi ng/di agnos tic resul t No observ ation record ed. [email or web address] Not Available 21:18:35 01/23/20 24 06/13/2023 imagi ng/di agnos tic resul t No observ ation record ed. [email or web address] Not Available 21:18:35 06/19/19 25 06/17/2024 6 minut e walk test* No observ ation record ed. BARCODE Brad Felix MD [address] [place] [address], [id number], 06/18/2024 08:46:28 07/08/19 25 06/17/2024 PFT No observ ation record ed. [email or web address] [facility] [address] [place] [address], [id number], 07/07/2024 19:49:58 Result Notes None recorded. Problems Name Problem SNOMED Code Status Onset Date Resolution Date Notes Provider Name and Address Organization Details Recorded Time Nodule of lung 273245212 Active 2023 Edna Smith APRN, BIOLOGY SPECIALIST [address] [facility], [place], [address], [facility] 4 13:58:05 Cigarette smoker 20700052 Active 2023 [facility]flakita escal[facility] 4 14:09:35 Abscess of groin 81691519 Active 2023 Brannon Daniel MD [address] [place] [address], [phone], [facility] 4 10:10:36 Continuous dependence on cigarette smoking 0625686152923 08 Active 2024 Edna Smith APRN, BIOLOGY SPECIALIST [address] [place] [address], [address], [facility] 5 11:51:49 Serum thyroid stimulating hormone level outside reference range 107306557 Active 2023 [facility] 4 09:31:37 Acute kidney injury 11717030 Active 2023 [facility] 4 15:03:32 Essential hypertensio n 64352677 Active 2023 Jessica Sparks [facility] 4 15:03:39 Chronic kidney disease stage 3 365943223 Active 2023 Jessica Sparks [facility] 4 15:03:48 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 6696828542499 09 Active 2023 Jessica Sparks [facility] 4 15:04:07 Smoker 35494159 Active 2023 Brannon Daniel MD [address] [place] [address], [address] , [facility] 4 10:10:45 Chronic obstructive pulmonary disease 04098162 Active 2023 Jessica Sparks null, [facility] 4 15:04:29 Edema 737983064 Active 2023 Jessiac Sparks null, [facility] 4 15:05:39 Acute hyperkalemi a 3071213 Active 2023 [facility] 4 15:05:51 Heart failure with reduced ejection fraction 188356541 Active 2023 [facility] Bridger [facility] 4 15:06:13 Generalized ischemic myocardial dysfunction 678252229 Active 2023 Jessica Sparks null, [facility] 4 15:06:44 Polymyalgia rheumatica 52024853 Active 2023 [facility] 4 15:07:00 Hyperthyroi dism 96325094 Active 2023 Jessica Rojasias null, [facility] 4 15:07:11 Actinic keratosis 963826821 Active 2023 [facility] Edouard [facility] 4 09:43:37 Seborrheic keratosis 174648732 Active 2023 Vandana Edouard null, [facility] 4 09:43:45 Cyst of skin 689416887 Active 2023 Vandana Edouard [facility] 4 09:55:42 Problem Notes None recorded. Medical Equipment None Reported. Allergies Allergen ID Allergen Name Allergen Category Reaction Reaction Severity Criticality Documentation Date Start Date Code Code System Note Provider Name and Address Organization Details Recorded Time 9482330 atorvasta tin calcium medicatio n myalgias (muscle pain) Not available Not available 08/21/2024 05/04/ 2020 40625 RxNorm Jessica Sparks [facility] 5 17:11:22 577561 ferrous sulfate medicatio n abdominal pain Not available Not available 04/24/20232017 37523 RxNorm React ion: Indig estio n; Not Available [facility] 4 23:00:18 918079 simvastat in medicatio n myalgias (muscle pain) Not available Not available 04/24/20232017 35068 RxNorm React ion: Other : muscl e pain; Not Available [facility] 4 23:00:18 874489 rosuvasta tin medicatio n Not available Not available Not available 04/24/20232017 82873 2 RxNorm React ion: Other : abnor mal liver enzym es; Not Available [facility] 4 23:00:18 Medications Name Sig Start Date Stop Date Status Note LastModified by Organization Details LastModified Time cyclobenzap rine 10 mg tablet Take 1 tablet 3 times a day by oral route. active Not Available Not Available No t Available amiodarone 200 mg tablet Take 1 tablet every day by oral route. active Not Available Not Available No t Available Co Q 10 10 mg capsule Take 1 capsule every day by oral route. active Not Available Not Available No t Available Lasix 40 mg tablet Take 1 tablet every day by oral route. active Not Available Not Available No t Available metoprolol succinate ER 200 mg tablet,exte nded release 24 hr Take 0.5 tablets every day by oral route. active Not Available Not Available No t Available amlodipine 5 mg tablet Take 1 tablet every day by oral route. active Not Available Not Available No t Available sulfamethox azole 800 mg-trimetho prim 160 mg tablet TAKE 1 TABLET BY MOUTH TWICE DAILY FOR 10 DAYS 08/22 completed Not Available Not Available Not Available doxycycline monohydrate 100 mg tablet TAKE 1 TABLET BY MOUTH TWICE DAILY active Not Available Not Available No t Available tramadol 50 mg tablet TAKE 1 TABLET BY MOUTH EVERY 4 HOURS NEEDED FOR PAIN . DO NOT EXCEED 5 PER 24 HOURS active Not Available Not Available No t Available doxazosin 8 mg tablet Take 1 tablet every day by oral route at bedtime. active Not Available Not Available No t Available Tylenol 500 mg tablet Take 2 tablets every 4-6 hours by oral route as needed. active Not Available Not Available No t Available cephalexin 500 mg capsule TAKE 1 CAPSULE BY MOUTH 4 TIMES DAILY FOR 10 DAYS 02/15 completed Not Available Not Available Not Available nitroglycer in 0.[address] 1 tablet by sublingua l route as needed. active Not Available Not Available No t Available gabapentin 300 mg capsule Take 2 capsules twice a day by oral route. active Not Available Not Available No t Available omeprazole 20 mg capsule,del ayed release Take 1 capsule every day by oral route. active Not Available Not Available No t Available montelukast 10 mg tablet Take 1 tablet every day by oral route for 90 days. 2023 active Not Available Not Available Not Avai lable Longs Adult Low Strength ASA 81 mg tablet,farhan yed release Take 1 tablet every day by oral route. active Not Available Not Available No t Available pravastatin 20 mg tablet Take 1 tablet every day by oral route. active Not Available Not Available No t Available lisinopril 5 mg tablet Take 1 tablet every day by oral route. active Not Available Not Available No t Available cefdinir 300 mg capsule TAKE 1 CAPSULE BY MOUTH EVERY 12 HOURS 02/15 completed Not Available Not Available Not Available Terbinafine 1 % topical cream APPLY TO THE AFFECTED AND SURROUNDI NG AREAS OF SKIN BY TOPICAL ROUTE ONCE DAILY active Not Available Not Available No t Available amoxicillin 875 mg-potassiu m clavulanate 125 mg tablet TAKE 1 TABLET BY MOUTH TWICE DAILY FOR 10 DAYS active Not Available Not Available No t Available B Complex 1 capsule daily active Not Available Not Available No t Available Daily Multivitami n-Minerals Take 1 tablet daily active Not Available Not Available No t Available Vitamin D3 10 mcg (400 unit) capsule Take 1 capsule every day by oral route. active Not Available Not Available No t Available Asmanex HFA 200 mcg/actuati on aerosol inhaler Inhale 2 puffs twice a day by inhalatio n route. active Not Available Not Available No t Available Stiolto Respimat 2.5 mcg-2.5 mcg/actuati on solution for inhalation Inhale 2 puffs every day by inhalatio n route for 90 days. 2024 active Not Available Not Available Not Avai lable albuterol sulf 90 mcg/actuati on breath activated powder inhaler,sen sor Inhale 2 puffs every 6 hours by inhalatio n route as needed. active Not Available Not Available No t Available Vitals Date Recorded Body height Body mass index (BMI) Body weight Heart rate Oxygen saturation Oxygen saturation in Arterial blood by Pulse oximetry Systolic blood pressure Diastolic blood pressure Provider Name and Address Organization Details Last Updated DateTime 5 172.72 cm 37.6 kg/m2 813086. 32 g 63 /min 97 % 97 % 100 mm[Hg] 63 mm[Hg] Carline Nelly [facility] 5 11:36:05 Date Recorded Body height Body mass index (BMI) Body weight Heart rate Oxygen saturation Oxygen saturation in Arterial blood by Pulse oximetry Systolic blood pressure Diastolic blood pressure Provider Name and Address Organization Details Last Updated DateTime 5 172.72 cm 37.4 kg/m2 975373. 72 g 64 /min 94 % 94 % 150 mm[Hg] 72 mm[Hg] Jessica Sparks [facility] 5 09:30:49 Date Recorded Body height Provider Name an d Address Organization Details Last Updated DateTime 02/05/2024 172.[address] [facility] 02/05/2024 10:03:21 Date Recorded Body height Body mass index (BMI) Body weight Heart rate Oxygen saturation Oxygen saturation in Arterial blood by Pulse oximetry Systolic blood pressure Diastolic blood pressure Provider Name and Address Organization Details Last Updated DateTime 4 172.72 cm 36.6 kg/m2 699596. 76 g 62 /min 90 % 90 % 116 mm[Hg] 60 mm[Hg] Mirtha Cunha [facility] 4 13:57:21 Social History None recorded. Functional Status None recorded. Mental Status None recorded. Family History Nothing Reported. Medical History Condition Response Cancer N Anemia N Immunizations Vaccine Type Date Status Note Provider Nam e and Address Organization Details Recorded Time pneumococcal polysaccharide PPV23 7 completed Jessica petty [facility] 08/22/2024 09:19:01 Tdap 9 completed Jessica [place] [facility] 08/22/2024 09:19:01 Tdap 9 completed Jessica Sparks [facility] 08/22/2024 09:19:01 Pneumococcal conjugate PCV 13 9 completed Jessica Sparks [facility] 08/22/2024 09:19:01 pneumococcal, unspecified formulation 3 completed Jessica Sparks [facility] 08/22/2024 09:19:01 Past Encounters Encounter ID Performer Location Encounter Start Date Encounter Closed Date Diagnosis/Indication Diagnosis SNOMED-CT Code Diagnosis ICD10 Code Diagnosis Note [id number] Kaitlin Fuentes MD [facility] (CT) [address] [place] [address] 08/01/2023 09:12:39 08/01/2023 10:18:06 Chronic kidney disease stage 3 231974204 N18.30 Acute kidney injury 1466 9001 N17.9 Edema 459216243 R60.9 Essential hypertension 18215854 I10 Acute hyperkalemia 80793 00 E87.5 Chronic ob structive pulmonary disease 94635276 J44.9 [id number] Mayuri Dalton, [facility] ([place]) [address] [place] [address] 07/26/2023 11:31:29 07/26/2023 12:12:30 Serum thyroid stimulating hormone level outside reference range 602482262 R89.1 [id number] Frances Acevedo MD [facility] 4th Derm (CT) [address] [place] [address] 10/02/2023 09:11:16 10/02/2023 10:03:42 Actinic keratosis 418842666 L57.0 Actinic keratoses. The patient was advised that these are potentiall y pre-skin cancers: they have a small risk of developing into skin cancers and their presence signifies an increased risk for developing skin cancer. We reviewed treatment options. We discussed treating the lesions with liquid nitrogen today. The risks and benefits of the procedure, the risks and benefits of alternativ e procedures , as well as the possible consequenc es of not undergoing the procedure were discussed. The patient verbalized understand ing and gives consent to proceed. Liquid nitrogen was applied to affected areas. Side effects of pain, redness, blistering , scabbing, hypopigmen tation and recurrence were discussed with the patient. lesion(s) treated. Thus they were advised to use a sunscreen of at least SPF 30 and wear protective clothing. A total of 7 lesions treated on the: 1- right ear, 2- right post auricular, 2- left ear, 2- left post auricular Seborrheic keratosis 394 242496 L82.1 Seborrheic keratoses We discussed the fact that these are benign lesions requiring no treatment. We discussed the fact that removal would be considered a cosmetic procedure and would not be covered by insurance. The patient was advised that more such lesions may develop. The patient is not bothered by the lesions and does not wish to have them treated. We will observe. Cyst of skin 037468747 L 72.9 Cyst We discussed the fact that these are benign lesions requiring no treatment. We discussed the fact that removal would be considered a cosmetic procedure and would not be covered by insurance. The patient was advised that more such lesions may develop. The patient is not bothered by the lesions and does not wish to have them treated. We will observe. [id number] Edna Smith APRN, BIOLOGY SPECIALIST [facility] 2nd Pul ([place]) [address] [facility],[address] [place] [address] 12/18/2023 12:36:43 12/18/2023 13:48:58 Chronic obstructive pulmonary disease 81451869 J44.9 Body mass index 30+ - obesity 836000671 Z68.36 Nodule of lung 212143857 R91.1 Cigarette smoker 5125653 7 F17.210 Substance abuse counseling 811177888 Z71.6 Additional diagnosis detail: Encounter for smoking cessation counseling [id number] Brad Felix MD [address] [place] [address] 12/18/2023 12:36:03 12/18/2023 13:20:35 Chronic obstructive pulmonary disease 68332700 J44.9 [id number] Stacy Malone MD [address] [place] [address] (CT) [address] [address] 01/19/2024 09:54:51 01/19/2024 10:42:52 [id number] Brannon Daniel MD [facility] Plastics (CT) [address] [facility] [place] [address] 01/22/2024 09:40:53 01/22/2024 10:13:47 Abscess of groin 09353693 L02.214 Smoker 06226581 F17.200 [id number] Brannon Daniel MD [facility] (CT) [address] [facility] [place] [address] 02/05/2024 09:59:56 02/05/2024 10:26:04 Smoker 28578241 F17.200 Abscess of groin 1589650 9 L02.214 Actinic keratosis 296761 007 L57.0 [id number] Afia Campo PA-C [facility] (CT) [address] [place] [address] 02/16/2024 13:42:45 02/16/2024 14:31:56 Chronic kidney disease stage 3 219123305 N18.30 Essential hypertension 23323057 I10 [id number] Edna Smith APRN, BIOLOGY SPECIALIST [facility] Pul (CT) [address] [place] [address] 06/17/2024 10:48:38 06/17/2024 16:55:04 Chronic obstructive pulmonary disease 00258084 J44.9 Body mass index 30+ - obesity 613588687 Z68.36 Nodule of lung 123960306 R91.1 Cigarette smoker 4148408 7 F17.210 Substance abuse counseling 626274305 Z71.6 Additional diagnosis detail: Encounter for smoking cessation counseling Continuous dependence on cigarette smoking 0703920731 61408 F17.210 [id number] Brad Felix MD [facility] 2nd Boards [address] [place] [address] 06/17/2024 10:46:56 06/17/2024 17:03:41 Chronic obstructive pulmonary disease 02132737 J44.9 [id number] Kaitlin Fuentes MD [facility] (CT) [address] [place] [address] 08/22/2024 09:16:09 08/22/2024 11:05:53 Chronic kidney disease stage 3 663225717 N18.30 Acute kidney injury 1466 9001 N17.9 Essential hypertension 50864694 I10 Health Concerns Section Related Observation LastModified by Organization Detai ls LastModified Time None Recorded Concern Status LastModified by Organization Details LastModified Time None Recorded Advance Directives Directive None Recorded Payers Insurance Date Sequence Insurance Name Policy Number Policy Jeronimo Covered Member ID Jeronimo Member ID Guarantor Name 09/05/2024 [facility] [place] Deshpande [id number] South Deshpande Notes Date Note Type Note Provider Name and Address Organization Details Recorded Time 02/16/2024 text/html Mr. Deshpande is a pleasant 68-year-old male with a past medical history significant for hypertension, hyperlipidemia, atrial fibrillation, chronic kidney disease stage III with a baseline serum creatinine ranging between 1.2 1.4 who is here for a follow-up appointment. Patient denies any fever, chills, or sweats. He denies any chest pain or shortness of breath. He continues to hydrate well and to avoid NSAIDs. Patient recently had a groin abscess which is healing. Afia Campo PA-C [facility] [place] [address], [phone], [facility] 02/16/2024 14:27:10 06/17/2024 text/html [place] is here to day for follow-up of COPD. He reports stable respiratory symptoms. He is compliant with his Stiolto and Asmanex. He reports no exacerbations or hospitalizations since we last saw him. He does take montelukast every night. He is continue to smoke 2 packs of cigarettes a day. He is not currently interested in smoking. Exertional dyspnea remains stable and is only with moderate to strenuous activities. He denies any shortness of breath at rest.PMH and PSH: Severe COPD, CAD, CHF, CKD, obesity, obstructive sleep apnea, hypothyroidism, HTN, osteoarthritis, polymyalgia rheumatica, temporal giant cell arteritis, cardiac catheterization, PM implantation.Family history: CAD.Social history: Retired and lives independently. Edna Smith APRN, BIOLOGY SPECIALIST [address] [place] [address], [phone], [facility] 06/17/2024 17:45:48 08/22/2024 text/html Mr. Deshpande is a pleasant 68-year-old male with a past medical history significant for hypertension, hyperlipidemia, atrial fibrillation, chronic kidney disease stage III with a baseline serum creatinine ranging between 1.2 1.4 who is here for a follow-up appointment.chronic kidney disease stage III with baseline serum creatinine range between 1.2 1.4. He denies having any chest pain, shortness breath or palpitation Denies having any dysuria, hematuria or symptoms of UTI Blood pressure in the office today is 140/72 however patient is states that he has just taken his blood pressure medications at this morning he is currently on amlodipine 5 mg p.o. daily Along with lisinopril 5 mg daily Follow-up on blood pressures in 1 week. Kaitlin Fuentes MD [address] [place] [address], [phone], [facility] 08/22/2024 10:40:37
--- OUTSIDE RECORDS SUMMARY | 2024-09-07 10:23 | XMS_ITS | Continuity of Care Document ---
Author Organization [facility], [place] Address [address] [place] [address] Phone Care Team Providers Care Business Employment Specialist Name Role Phone Nelson Ness MD Unavailable Unavailable Allergies, Adverse Reactions, Alerts Substance Reaction Status Criticality cilostazol Unknown(moderate) Active No Informa tion [id number] Reductase Inhibitors Acti ve No Information Medications Medication Instructions Dosage Effective Dates (start - stop) Status Comments Systane Complete 0.6 % eye drops 1 drop 3-4 times in both eyes daily - Active Eyescrub topical pads scrub eyelids 30 second on each side and then rise afterwards daily - Active Aspirin Low Dose 81 mg tablet,delayed release take 1 tablet by oral route every day 81 MG - Active Vitamin D3 1,000 unit capsule take 1 tablet by oral route every day 1 tablet - Active lisinopril 40 mg tablet take 1 tablet by oral route every day 40 MG - Active atorvastatin 20 mg tablet take 1 tablet by oral route every day 20 MG - Active doxazosin 8 mg tablet take 1 tablet by oral route every day 8 MG - Active Lamisil AT 1 % topical gel take 1 tablet by oral route every day - Active cyclobenzaprine 10 mg tablet take 1 tablet by oral route every day 10 MG - Active ferrous sulfate 325 mg (65 mg iron) tablet take 1 tablet by oral route every day 325 MG - Active Symbicort 80 mcg-4.5 mcg/actuation HFA aerosol inhaler inhale 2 puff by inhalation route 2 times every day in the morning and evening 2.00 puff - Active nitroglycerin 0.4 mg/hr transdermal 24 hour patch apply 1 patch by transdermal route every day remove at night for 10-12 hours 1.00 patch - Active Ventolin HFA 90 mcg/actuation aerosol inhaler inhale 2 puff by inhalation route every 4 - 6 hours as needed - Active amiodarone 200 mg tablet take 1 tablet by oral route every day 200 MG - Active multivitamin tablet take 1 tablet by oral route every day 1 tablet - Active Tylophen 500 mg capsule take 2 capsule b y oral route every 6 hours as needed - Active spironolactone 25 mg tablet take 1 tablet by oral route every day 25 MG - Active pantoprazole 40 mg tablet,delayed release take 1 tablet by oral route every day 40 MG - Active Procedures Procedure Date EYE EXAM ESTABLISHED PAT REFRACTION EYE EXAM ESTABLISHED PATIENT REFRACTION EYE EXAM ESTABLISHED PAT REFRACTION FUNDUS PHOTOGRAPHY Visual Field Examination EYE EXAM ESTABLISHED PATIENT REFRACTION EYE EXAM ESTABLISHED PATIENT REFRACTION EYE EXAM ESTABLISHED PATIENT REFRACTION EYE EXAM, NEW PATIENT Advance Directives Directive Yes / No Effective Date File Name No Information Encounters Encounter Description Practice Location Reason(s) For Visit Diagnoses Date Provider Providers Copied on Encounter [facility], [facility], [address], [place], [id number] , [place] tel:[phone] [facility] blurry vision/Dizzi ness (chief complaint) Type 2 diabetes mellitus without complicationsAge -related nuclear cataract, bilateral May- 5 Grover Damon. [address] [place] [address], [id number], [place]. tel:[phone] Referring Provider: Nelson Rodriguez, [address] [place] [address], [id number]. tel:[phone] [facility], [address] [place] [address], [id number] , tel:[phone] [facility] diabetic eye exam (chief complaint) Type 2 diabetes mellitus without complicationsAge -related nuclear cataract, bilateralHyperme tropia, bilateralRegular astigmatism, bilateralPresbyo salazar 4 Grover Damon. [address] [place] [address], [id number], [place]. tel:[phone] Referring Provider: Nelson Grover Jennifer, [address] [place] [address], [id number]. tel:[phone] [facility], [address] [place] [address], [id number] , tel:[phone] [facility] diabetic eye exam (chief complaint) Type 2 diabetes mellitus without complicationsAge -related nuclear cataract, bilateralDry eye syndrome of bilateral lacrimal glandsHypermetro salazar, bilateralRegular astigmatism, bilateralPresbyo piaGlare sensitivity 3 Estrella Kramer. [address], [place], [place], [id number], [place]. tel:[phone] Referring Provider: Nia Mata, [address], [place], [address]. tel:[phone] [facility], [address] [place] [address], [id number] , [place] tel:[phone] [facility] Blurry Vision (chief complaint) Hypermetropia, bilateralRegular astigmatism, bilateralPresbyo piaType 2 diabetes mellitus without complicationsAge -related nuclear cataract, bilateralDry eye syndrome of bilateral lacrimal glandsSquamous blepharitis right eye, upper and lower eyelidsSquamous blepharitis left eye, upper and lower eyelidsConjuncti mitzi concretions, left eyeOther giant cell arteritis 2 Estrella Kramer. [address], [place], [place], [id number], [place]. tel:[phone] Referring Provider: Nai Mata, [address], [place], [address]. tel:[phone] [facility], [address] [place] [address], [id number] , [place] tel: [phone] [facility] Diabetes Examination (chief complaint)de creased vision (chief complaint)Di abetes Examination (chief complaint)de creased vision (chief complaint) Type 2 diabetes mellitus without complicationsHyp ermetropia, bilateralRegular astigmatism, bilateralPresbyo piaAge-related nuclear cataract, bilateral Sep-0 3-202 1 Oberreiter Nia. [address] , [place], [place], [id number], [place]. tel:[phone] Referring Provider: Aleena Renee [address], [address]. tel:[phone] [facility], [address] [place] [address], [id number] , [place] tel:[phone] [facility] Diabetes Examination (chief complaint)de creased vision (chief complaint)Di abetes Examination (chief complaint)de creased vision (chief complaint) Age-related nuclear cataract, bilateralType 2 diabetes mellitus without complicationsPre sbyopiaRegular astigmatism, bilateralHyperme tropia, bilateral Sep-0 2-202 0 Oberreitlali Kramer. [address] , [place], [place], [id number], [place]. tel:[phone] Referring Provider: Marcello Trinidad [place] [address] [address] [place], [address]. tel:[phone] [facility], [address] [place] [address], [id number] , [place] tel:[phone] [facility] Diabetes Examination (chief complaint)sl ightly blurred vision (chief complaint)Di abetes Examination (chief complaint)sl ightly blurred vision (chief complaint) PrediabetesHyper metropia, bilateralRegular astigmatism, bilateralPresbyo piaAge-related nuclear cataract, bilateral Sep-0 9 Estrella Kramer. [address], [place], [place], [id number], [place]. tel:[phone] Family History Family Member Type Diagnosis Age At Onset Problem (finding) No family history of Ca taracts Mother Problem (finding) Diabetes mellitus Father Problem (finding) hypertension Mother Problem (finding) hypertension Problem (finding) No family history of Gl au[place] Father Problem (finding) Diabetes mellitus Problem (finding) No family hist ory of Macular degeneration Maternal grandfather Problem (finding) Diabetes mellit us Payers Payer name Insurance type Covered constitution party ID Authorchikisa tilance(s) [place] [employer] [place] [id number] Social History Type Description Quantity Date Captured Comments Alcohol Use Details Unknown Caffeine Use Details Unknown Tobacco Use Status Cigarette smoker Smoking Status Current every day smoker Smoking Tobacco Use Details Cigarette: No Details Available Cigarette: No Details Available Sex Male Chief Complaint And Reason For Visit From encounter dated '06/07/2024 08:45'. blurry vision/Dizziness (chief complaint). Description: The 68 year old patient presents for Uncontrolled eye movements and Dizziness OU. Patient reports good stable vision distance and near cc OU. Patient reports dizziness x 2 months intermittently. Patient states that the episode starts with his eyes rolling back and forth uncontrollably, and blinking uncontrollably then he gets dizzy. Patient states he closes his eyes for about 1 minute and the symptoms pass. Patient wanted to rule out any issues with eyes before going to his other Specialist. Patient denies pain and irritation.Patient reports he is Type 2 diabetic and A1C 6.2 LBS 135 pt reports BS as stable. Patient reports he treats with diet. Please send letter to Dr. Boss Reason For Referral Reason For Referral No Information Plan Of Treatment Date Type Action Status Goal Tobacco cessation counseling completed Goal Tobacco cessation counseling completed Goal Tobacco cessation counseling completed Goal Tobacco cessation counseling completed Future Order: Lab Order CRP (C R eactive Protein) (CRP), Ordered on: Ordered Future Order: Lab Order ESR (ESR), Ordere d on: Ordered Future Order: Lab Order RF (Rheu matoid Factor) (RF), Ordered on: Ordered History Of Present Illness Encounter Date Complaint History Of Prese nt Illness blurry vision/Dizziness The 68 y ear old patient presents for Uncontrolled eye movements and Dizziness OU. Patient reports good stable vision distance and near cc OU. Patient reports dizziness x 2 months intermittently. Patient states that the episode starts with his eyes rolling back and forth uncontrollably, and blinking uncontrollably then he gets dizzy. Patient states he closes his eyes for about 1 minute and the symptoms pass. Patient wanted to rule out any issues with eyes before going to his other Specialist. Patient denies pain and irritation.Patient reports he is Type 2 diabetic and A1C 6.2 LBS 135 pt reports BS as stable. Patient reports he treats with diet. Please send letter to Dr. Boss diabetic eye exam The 68 year ol d patient presents for diabetic eye exam and f/u Cataracts OU, Dry Eye, and Refractive Errors OU, [facility]. [facility] states [facility]VA and [facility]VA is good c gls OU but sometimes a little blurry/not as crisp, mostly uses them for driving and reading up close. Pt states OU temporal feels very tender and hurts often, the sides of his head are often numb as well, he is unsure of what causes this. Pt is using OTC drops (unsure of brand the [facility] gives [facility] to him.) Pt is type 2 Diabetic and treats with diet and exercise. Pt states BS is stable, but he does not check it often. Please send letter [facility] Dr[facility] Dre [facility] [place]. diabetic eye exam The 67 year ol d patient presents for diabetic eye exam and f/u Dry Eye OU, Cataract OU, and Refractive Error OU. PT is Type II Diabetic treating with diet & Exercise. PT reports BS have been stable. Please send letter to Dr. Dre Boss.PT reports [facility] is good D & N OU since last exam. PT reports being very light sensitive. PT denies pain or discomfort. PT is using OTC AT PRN OU c relief and Visine for red eyes a few times a week. Blurry Vision The 65 year old patient presents for evaluation of Blurry Vision in the left > right. Pt reports that he is having blurry vision OU since last exam. Pt reports that he is having pain in his OS upper lid, and temporal region. Pt reports that he has light sensitivity that affects his ability to drive. Pt reports needing to hold his eyes open to drive. Pt reports that sunglasses sometimes help but not always. Pt reports that he is having an oily discharge OU. Pt reports that his eyes will crust through out the day. Pt reports that he is seeing less detail OU. It affects both near and far vision c gls OU. The symptom is constant. Pt reports using Visine OU. Pt is a type 2 Diabetic. Pt reports stable blood sugars. Diabetes Examination The 65 Year old male presents for Diabetes Examination. Pt is a Type 2 controlled by diet and [facility]. decreased vision Pt has Hx of HYPEROPIA/ASTIGMATISM/PRESBYOPIA/NS OU. Pt reports of decreased vision in the right eye and left eye. since last exam. It affects distance vision.Pt doesn't use eye meds or art tears.Pt denies any pain or discomfort OU. The patient denies COVID-19 symptoms - temperature normal. Diabetes Examination The 64 Year old male presents for [facility] from Mechelle Sterling OD, Cataracts OU and Diabetes Examination. Pt is Type 2 DM treating with diet. Pt states BS are not stable. Please send [facility]. Pt not sure of Dr name. decreased vision Pt reports decr eased vision in the right eye and left eye. It started about 6 month(s) ago . It affects near vision. Pt states notices mostly with computer, seems like OU can't focus as well. The patient denies COVID-19 symptoms - temperature normal, pain or discomfort. Pt states not using eye meds or OTC AT.Pt not wearing mask today due to Asthma and COPD. Diabetes Examination The 63 Year old male presents in office today being referred by the [facility] for [facility] eye exam. Pt is Type II Diabetic treating by diet and exercise for approximately 10 years. Pt states he believes he BS are well controlled. Pt denies checking his BS daily. Please send letter to Denise Elmore NP at [facility] in [facility]. slightly blurred vision NOTE: Pt reports slightly blurred vision in the right eye and left eye since last exam 1 year ago. The onset was gradual. It affects both near and far vision with glasses. It occurs constantly. The condition is worsening. The patient denies pain or discomfort. Pt denies eye meds and OTC AT's. Functional Status Date Functional Assessmen t No Information Instructions Date Instruction Additional Infor farrah Impression/Plan Impression/Plan Impression/Plan Impression/Plan Impression/Plan Impression/Plan Impression/Plan Assessments Type Assessment Date assessment Type 2 diabetes mellitus without complications assessment Age-related nuclear cataract, bi lateral Patient Care Teams Name Effective Dates (start - stop) Status Members No Information
--- OUTSIDE RECORDS SUMMARY | 2024-09-07 11:15 | XMS_ITS | Continuity of Care Document ---
Author Name [facility] Organization [facility] Care Team Providers Care Lens Maker Name Role Phone [facility] Unavailable Unavailable Problems Combined list of problems from Department of Defense and Veterans Affairs facilities. It does not include entries that were removed or entered in error. Problem Status Onset Date Problem Type Date of Resolution Comments Source Ventricular tachycardia Active 018 Condition August 10, 2018 Entered By: NARINDER DAVIS Comment: slow [place]-Dr Yonathan Mercado [facility] cardiology [facility] PVD-peripheral vascular disease Active 018 Condition August 10, 2018 Entered By: NARINDER DAVIS Comment: PVD with claudication-Delmar Luu CVOct 2020 Entered By: DANNY CONTRERAS Comment: s/p right common iliac arter with stent; s/p right external iliac intrvascular lothotripsy on 12/21/20 [facility] Ischemic dilated cardiomyopathy due to coronary artery disease Active 016 Condition Sep 22, 2015 Entered By: FUAD COLES Comment: Evaluated by Cardiology 09/03/15Ju2016 Entered By: FUAD COLES Comment: 10/12/16 ECHO: Ischemic cardiomyopathy , significant hypokinesis of the distal [facility] Cardiovascular Disease Active 994 Condition Nov 06, 1995 Entered By: BLANCA ADAIR Comment: recurrant subendo mi 7-96Jun 1996 Entered By: BLANCA ADAIR Comment: first mi 94Jun 1996 Entered By: BLANCA ADAIR Comment: recurrant angina [facility] SUBENDO INFARCT, INITIAL Inactive 994 Condition [facility] [place] Abdominal aortic aneurysm Active Condition August 18, 2021 Entered By: DANNY CONTRERAS Comment: 3 cm by CTA 08/15; followed by cardioogy [facility] Acute eczema Active Condition [facility] CS Allergic rhinitis Active Condition [facility] Allergic Rhinitis Active Condition [facility] Anemia, FE Defic Active Condition [facility] Angina Pectoris * (ICD-9-CM 413.9) Active Condition [facility] Benign prostatic hyperplasia Active Condition [facility] Benign prostatic hyperplasia Active Condition [facility] CAD - Coronary artery disease Active Condition [facility] S Cardiac pacemaker in situ Active Condition [facility] Cervicalgia Active Condition [facility] S Chronic back pain Active Condition [facility] Chronic gingivitis, Non-plaque Induced (ICD-9-CM 523.11) Active Condition [facility] Chronic kidney disease Active Condition [facility] Chronic obstructive lung disease Active Condition [facility] Congestive heart failure Active Condition Apr 08, 2021 Entered By: DANNY CONTRERAS Comment: nuclear stress test EF 24% 04/07/21 [facility] Congestive Heart Failure Active Condition [facility] Constipation Active Condition [facility] CS COPD Active Condition [facility] Coronary Artery Disease Active Condition [facility] Cramp in lower leg Active Condition [facility] Degeneration of intervertebral disc (ICD-9-CM 722.6) Active Condition [facility] Diabetes Mellitus Type 2 ([facility] [id number]) Active Condition Nov 05, 2020 Entered By: DANNY CONTRERAS Comment: HbA1c 6.6% on 10/30/20 [facility] DM Type II Active Condition [facility] Dysthymia (or Depressive neurosis) Active Condition [facility] Elevated Liver Function Tests (ICD-9-CM 794.8) Active Condition [facility] Essential hypertension Active Condition [facility] Exposure to Potentially Hazardous Substance ([facility] [id number]) Active Condition [facility] Family HX GI Malignancy Active Condition Jan 21, 2008 Entered By: DANIELLE JACOBS Comment: Sister w/ CRC [facility] Gastroesophageal Reflux Active Condition [facility] Gastroesophageal reflux disease Active Condition [facility] S Hernia of anterior abdominal wall Active Condition [facility] S Hernia, Ventral (ICD-9-CM 553.20) Active Condition [facility] Hyperlipidemia Active Condition [facility] Hyperlipidemia Active Condition [facility] HYPERTENSION NOS Active Condition [facility] Iron deficiency anemia Active Condition [facility] Neuropathy (SNOMED CT 309616507) Active Condition [facility] Nicotine dependence Active Condition [facility] Obesity (SCT 867226167) Active Condition [facility] Osteoarthritis Active Condition [facility] Osteoarthritis * (ICD-9-CM 715.90) Active Condition [facility] Panic Disorder * (ICD-9-CM 300.01) Active Condition [facility] Peripheral nerve disease Active Condition [facility] Polyp Colon (SCT 31430964) Active Condition Dec 28, 2020 Entered By: DANNY CONTRERAS Comment: colonscopy 12/18/20: polyps found; f/up in 3 years [facility] Prolonged posttraumatic stress disorder Active Condition [facility] PVD * (ICD-9-CM 443.9) Active Condition [facility] Sebaceous cyst of skin Active Condition [facility] Tinnitus Active Condition [facility] Tobacco Dependence Active Condition [facility] Trigger finger Active Condition [facility] Unspecified personality disorder Active Condition [facility] Vitamin D deficiency Active Condition [facility] Abnormal renal function Inactive Condition 05/01/2020 [facility] Acute nontraumatic kidney injury Inactive Condition 11/06/2020 Oct 03, 2018 Entered By: NARINDER DAVIS Comment: per note Dr Fuentes, nephrology [facility] Angina pectoris Inactive Condition 05/01/2020 [facility] Caffeine dependence Inactive Condition 05/01/2020 [facility] Diabetes mellitus type II Inactive Condition 05/01/2020 [facility] Epidermal inclusion cyst Inactive Condition 05/01/2020 [facility] Full consent for immunization Inactive Condition 05/01/2020 [facility] High sodium diet Inactive Condition 05/01/2020 [facility] Hyperthyroidism Inactive Condition 03/07/2024 [facility] Hypothyroidism (SCT 69069471) Inactive Condition 04/14/2021 [facility] Impaired Fasting Glucose (SCT 735538244) Inactive Condition 11/05/2020 [facility] Long-term current use of anticoagulant Inactive Condition 05/01/2020 [facility] Neck pain Inactive Condition 05/01/2020 [facility] REFLUX ESOPHAGITIS Inactive Condition [facility] Right upper quadrant pain Inactive Condition 05/01/2020 [facility] Diagnosis: ICD-10-CM L72.3 Sebaceous cyst Active Diagnosis [facility] Diagnosis: ICD-10-CM Z76.0 Encounter for issue of repeat prescription Active Diagnosis [facility] Diagnosis: ICD-10-CM G99.0 Autonomic neuropathy in diseases classified elsewhere Active Diagnosis [facility] Diagnosis: ICD-10-CM E11.40 Type 2 diabetes mellitus with diabetic neuropathy, unsp Active Diagnosis [facility] Diagnosis: ICD-10-CM Z71.89 Other specified counseling Active Diagnosis [facility] Diagnosis: ICD-10-CM I25.9 Chronic ischemic heart disease, unspecified Active Diagnosis [facility] Diagnosis: ICD-10-CM Z65.9 Problem related to unspecified psychosocial circumstances Active Diagnosis [facility] Diagnosis: ICD-10-CM N39.0 Urinary tract infection, site not specified Active Diagnosis [facility] Diagnosis: ICD-10-CM L02.214 Cutaneous abscess of groin Active Diagnosis [facility] Diagnosis: ICD-10-CM L05.01 Pilonidal cyst with abscess Active Diagnosis [facility] Diagnosis: ICD-10-CM M65.331 Trigger finger, right middle finger Active Diagnosis [facility] Diagnosis: ICD-10-CM L98.9 Disorder of the skin and subcutaneous tissue, unspecified Active Diagnosis [facility] Diagnosis: ICD-10-CM Z46.89 Encounter for fitting and adjustment of oth devices Active Diagnosis [facility] Diagnosis: ICD-10-CM I89.0 Lymphedema, not elsewhere classified Active Diagnosis [facility] Diagnosis: ICD-10-CM B35.1 Tinea unguium Active Diagnosis [facility] Medications Combined list of outpatient medications from Department of Defense and Veterans Affairs facilities.Medications provided include 1) outpatient medications from the last 15 months, and 2) patient-reported medications. Medication Details Route Status Patient Instructions Prescription Expires Prescription Number Last Dispense Date Ordering Provider Order Date Order Qty Source ACETAMINOPH EN 500MG TAB TAKE TWO TABLETS BY MOUTH FOUR TIMES A DAY NEEDED FOR PAIN OR FEVER - DO NOT EXCEED 4000MG OF ACETAMIN OPHEN (APAP) PER DAY FROM ANY AND ALL SOURCES NO MORE THAN 6 TABLETS PER DAY. FOR PAIN OR FEVER - DO NOT EXCEED 4000MG OF ACETAMIN OPHEN (APAP) PER DAY FROM ANY AND ALL SOURCES NO MORE THAN 6 TABLETS PER DAY. ORAL ACTIVE 01/17/2025 [id number] BENOK LUIS ALBERTO BRITANY 2023 200 [facility] ACETAMINOPH EN 500MG TAB TAKE TWO TABLETS BY MOUTH TWICE A DAY FOR PAIN OR FEVER - DO NOT EXCEED 4000MG OF ACETAMIN OPHEN (APAP) PER DAY FROM ANY AND ALL SOURCES ORAL DISCONT INUED (EDIT) 09/08/2024 [id number] 4 [facility] 2023 100 [facility] ACETAMINOPH EN 500MG TAB TAKE TWO TABLETS BY MOUTH TWICE A DAY FOR PAIN OR FEVER - DO NOT EXCEED 4000MG OF ACETAMIN OPHEN (APAP) PER DAY FROM ANY AND ALL SOURCES ORAL DISCONT INUED 08/27/2023 [id number] 4 [facility] 2022 100 [facility] ALBUTEROL 90MCG/ACTUA T (CFC-F) INHL,ORAL,8 .5GM DOSE COUNTER INHALE 2 PUFFS BY MOUTH FOUR TIMES A DAY NEEDED FOR BREATHIN G RESPIR ATORY (INHAL ATION) ACTIVE 09/08/2024 [id number] 4 [facility] 2023 1 [facility] ALBUTEROL SO4 0.083% INHL,3ML INHALE 3 ML VIA NEBULIZE R BY ORAL NEBULIZA TION FOUR TIMES A DAY NEEDED NEBULI ZATION 07/21/2024 [id number] [facility] 2023 120 [facility] ALUMINUM HYDROXIDE 320MG/5ML SUSP TAKE 15 ML BY MOUTH FOUR TIMES A DAY NEEDED FOR STOMACH ACID ORAL ACTIVE 06/11/2025 [id number] 5 [facility] 2024 2 [facility] ALUMINUM HYDROXIDE 320MG/5ML SUSP TAKE 15 ML BY MOUTH FOUR TIMES A DAY NEEDED FOR STOMACH ACID ORAL DISCONT INUED 07/21/2024 [id number] 5 LE CONTRERAS 2023 2 [facility] AMIODARONE HCL (PACERONE) 200MG TAB TAKE ONE TABLET BY MOUTH DAILY FOR HEART ORAL SUSPEND ED 09/06/2025 [id number] 5 LE CONTRERAS 2024 90 [facility] AMIODARONE HCL (PACERONE) 200MG TAB TAKE ONE TABLET BY MOUTH DAILY FOR HEART ORAL DISCONT INUED 09/08/2024 [id number] 5 LE CONTRERAS 2023 90 [facility] AMIODARONE HCL (PACERONE) 200MG TAB TAKE ONE TABLET BY MOUTH DAILY FOR HEART ORAL DISCONT INUED 10/19/2023 [id number] 4 LE CONTRERAS 2023 90 [facility] AMOXICILLIN TRIHYDRATE 875MG/CLAVU LANATE K 125MG TAB TAKE 1 TABLET BY MOUTH TWICE A DAY FOR 14 DAYS WITH FOOD ORAL DISCONT INUED 02/21/2024 [id number] TANK,KAY K 2023 28 [facility] ASPIRIN 81MG TAB,CHEWABL E CHEW ONE TABLET BY MOUTH EVERY DAY FOR BLOOD THINNER ORAL SUSPEND ED 09/06/2025 [id number] 5 LE CONTRERAS 2024 90 [facility] ASPIRIN 81MG TAB,CHEWABL E CHEW ONE TABLET BY MOUTH EVERY DAY FOR BLOOD THINNER ORAL DISCONT INUED 09/08/2024 [id number] 5 LE CONTRERAS 2023 90 [facility] ASPIRIN 81MG TAB,CHEWABL E CHEW ONE TABLET BY MOUTH EVERY DAY FOR BLOOD THINNER ORAL DISCONT INUED 10/19/2023 [id number] 4 LE CONTRERAS 2023 90 [facility] ASPIRIN 81MG TAB,CHEWABL E CHEW ONE TABLET BY MOUTH EVERY DAY FOR BLOOD THINNER ORAL DISCONT INUED 08/24/2023 [id number] 4 LE CONTRERAS 2022 90 [facility] CHOLECALCIF LORENZO 25MCG (1,000UNIT) TAB TAKE ONE TABLET (1000 UNITS) BY MOUTH DAILY FOR DIETARY SUPPLEME NT ORAL DISCONT INUED BY PROVIDE R 08/24/2023 [id number] 4 LE CONTRERAS 2022 100 [facility] COENZYME Q10 CAP/TAB TAKE ONE CAPSULE BY MOUTH ORAL ACTIVE SUSHANT DAVIS 2017 [facility] CYCLOBENZAP RINE HCL 10MG TAB TAKE ONE TABLET BY MOUTH THREE TIMES A DAY NEEDED ORAL 12/03/2023 [id number] LE CONTRERAS 2022 60 [facility] DEXTRAN 70/GLYCERIN 0.2%/HYPROM ELLOSE 0.3% SOLN,OPH INSTILL TWO DROPS BOTH EYES THREE TIMES A DAY NEEDED FOR THE EYE OPHTHA LMIC 09/27/2023 [id number] 4 LE CONTRERAS 2022 30 [facility] DOCUSATE NA 100MG CAP TAKE ONE CAPSULE BY MOUTH DAILY ORAL ACTIVE 11/14/2024 [id number] 5 LE CONTRERAS 2023 100 [facility] DOCUSATE NA 100MG CAP TAKE ONE CAPSULE BY MOUTH DAILY ORAL DISCONT INUED 02/21/2024 [id number] LE CONTRERAS 2022 100 [facility] DOXAZOSIN MESYLATE 4MG TAB TAKE ONE TABLET BY MOUTH AT BEDTIME FOR PROSTATE DOSE REDUCTIO N ORAL ACTIVE 09/06/2025 [id number] 5 LE CONTRERAS 2024 90 [facility] DOXAZOSIN MESYLATE 4MG TAB TAKE ONE TABLET BY MOUTH AT BEDTIME FOR PROSTATE DOSE REDUCTIO N ORAL DISCONT INUED 08/09/2024 [id number] SHARITA MERCADO 2023 90 [facility] DOXAZOSIN MESYLATE 8MG TAB TAKE ONE TABLET BY MOUTH EVERY DAY FOR PROSTATE /BLOOD PRESSURE ORAL DISCONT INUED 02/01/2024 [id number] 4 LE CONTRERAS [address] [place] [address] EZETIMIBE 10MG TAB TAKE ONE TABLET BY MOUTH EVERY DAY FOR LOWERING CHOLESTE ROL ORAL ACTIVE 09/08/2024 [id number] 4 LE CONTRERAS 2023 90 [facility] EZETIMIBE 10MG TAB TAKE ONE TABLET BY MOUTH EVERY DAY FOR LOWERING CHOLESTE ROL ORAL DISCONT INUED 10/19/2023 [id number] 4 LE CONTRERAS 2023 90 [facility] EZETIMIBE 10MG TAB TAKE ONE TABLET BY MOUTH EVERY DAY FOR LOWERING CHOLESTE ROL ORAL DISCONT INUED 08/24/2023 [id number] 4 LE CONTRERAS 2022 90 [facility] FEXOFENADIN E HCL 180MG TAB TAKE ONE TABLET BY MOUTH DAILY FOR ALLERGIE S ORAL ACTIVE 06/20/2025 [id number] 5 LE CONTRERAS [address] [place] [address] FISH OIL 1000MG (500MG DHA/EPA) CAP,ORAL TAKE 1 CAPSULE BY MOUTH ONCE A DAY ORAL ACTIVE MAHAD LOMAX 2012 [facility] FLUTICASONE PROPIONATE 50MCG/SPRAY SOLN,NASAL, 16GM INSTILL 2 SPRAYS IN EACH NOSTRIL DAILY FOR NASAL ALLERGIE S NASAL ACTIVE 06/20/2025 [id number] 5 LE CONTRERAS 2024 1 [facility] FUROSEMIDE 40MG TAB TAKE ONE TABLET BY MOUTH DAILY FOR BLOOD PRESSURE /WATER PILL ORAL ACTIVE 09/08/2024 [id number] 5 LE CONTRERAS 2023 90 [facility] FUROSEMIDE 40MG TAB TAKE ONE TABLET BY MOUTH DAILY FOR BLOOD PRESSURE /WATER PILL ORAL DISCONT INUED 10/19/2023 [id number] 4 LE CONTRERAS 2023 90 [facility] GABAPENTIN 600MG TAB TAKE ONE TABLET BY MOUTH TWICE A DAY FOR PAIN/NAUN ROPATHY ORAL ACTIVE 09/06/2025 [id number] 5 LE CONTRERAS BRITANY 2024 180 [facility] GABAPENTIN 600MG TAB TAKE ONE TABLET BY MOUTH TWICE A DAY FOR PAIN/NAUN ROPATHY ORAL DISCONT INUED 07/21/2024 [id number] 5 LE CONTRERAS 2023 180 [facility] GABAPENTIN 600MG TAB TAKE ONE TABLET BY MOUTH TWICE A DAY FOR PAIN/NAUN ROPATHY ORAL DISCONT INUED 08/24/2023 [id number] 4 BENOK LUIS ALBERTO BRITANY 2022 180 [facility] LACTOBACILL US ACIDOPHILUS CAP TAKE 1 CAPSULE BY MOUTH DAILY FOR DIGESTIO N ORAL ACTIVE 09/06/2025 [id number] 5 LE CONTRERAS BRITANY 2024 100 [facility] LACTULOSE 10GM/15ML SOLN,ORAL TAKE 15 ML BY MOUTH TWICE A DAY FOR CONSTIPA TION ORAL ACTIVE 04/30/2025 [id number] 5 BENOK LUIS ALBERTO BRITANY 2024 480 [facility] LISINOPRIL 5MG TAB TAKE ONE TABLET BY MOUTH DAILY FOR BLOOD PRESSURE ORAL SUSPEND ED 09/03/2025 [id number] 5 LE CONTRERAS BRITANY 2024 90 [facility] LISINOPRIL 5MG TAB TAKE ONE TABLET BY MOUTH DAILY FOR BLOOD PRESSURE ORAL DISCONT INUED 09/08/2024 [id number] 5 BENOK LUIS ALBERTO BRITANY 2023 90 [facility] LISINOPRIL 5MG TAB TAKE ONE TABLET BY MOUTH DAILY FOR BLOOD PRESSURE ORAL DISCONT INUED 08/24/2023 [id number] 4 LE CONTRERAS 2022 90 [facility] MAGNESIUM OXIDE 400MG TAB TAKE ONE TABLET BY MOUTH DAILY WITH FOOD ORAL ACTIVE 09/08/2024 [id number] 5 LE CONTRERAS 2023 120 [facility] MAGNESIUM OXIDE 400MG TAB TAKE ONE TABLET BY MOUTH DAILY WITH FOOD ORAL DISCONT INUED 10/19/2023 [id number] 4 LE CONTRERAS 2023 120 [facility] MENTHOL/MET HYL SALICYLATE (10-15%) LOW CONC. CREAM,TOP APPLY SMALL AMOUNT TOPICALL Y EVERY DAY NEEDED FOR SORE MUSCLES OR JOINTS TOPICA L ACTIVE 07/04/2025 [id number] Allen COONEY MARLIREMIGIO A 2024 90 [facility] MENTHOL/MET HYL SALICYLATE (10-15%) LOW CONC. CREAM,TOP APPLY SMALL AMOUNT TOPICALL Y NEEDED TOPICA L DISCONT INUED 03/08/2025 [id number] 4 LE CONTRERAS 2023 90 [facility] MENTHOL/MET HYL SALICYLATE (10-15%) LOW CONC. CREAM,TOP APPLY SMALL AMOUNT TOPICALL Y NEEDED TOPICA L DISCONT INUED 02/01/2024 [id number] 4 LE CONTRERAS 2022 90 [facility] METOPROLOL SUCCINATE 200MG TAB,SA TAKE ONE-HALF TABLET BY MOUTH EVERY DAY FOR HEART/BL OOD PRESSURE ORAL DISCONT INUED BY GIRISH Tanner 09/08/2024 [id number] 4 LE CONTRERAS 2023 45 [facility] METOPROLOL SUCCINATE 200MG TAB,SA TAKE ONE-HALF TABLET BY MOUTH EVERY DAY FOR HEART/BL OOD PRESSURE ORAL DISCONT INUED 08/24/2023 [id number] 4 LE CONTRERAS 2022 45 [facility] METOPROLOL SUCCINATE 50MG TAB,SA TAKE ONE TABLET BY MOUTH EVERY DAY ORAL SUSPEND ED 09/06/2025 [id number] 5 LE CONTRERAS 2024 90 [facility] METOPROLOL SUCCINATE 50MG TAB,SA TAKE ONE TABLET BY MOUTH EVERY DAY ORAL DISCONT INUED 08/09/2024 [id number] SHARITA MERCADO 2023 90 [facility] MOMETASONE FUROATE 200MCG/ACTU AT INHL,ORAL,1 20D,13GM INHALE TWO PUFFS BY MOUTH TWICE A DAY RINSE MOUTH AFTER EACH USE RESPIR ATORY (INHAL ATION) ACTIVE 09/08/2024 [id number] 5 LE CONTRERAS 2023 1 [facility] MOMETASONE FUROATE 200MCG/ACTU AT INHL,ORAL,1 20D,13GM INHALE TWO PUFFS BY MOUTH TWICE A DAY RINSE MOUTH AFTER EACH USE RESPIR ATORY (INHAL ATION) DISCONT INUED 08/24/2023 [id number] 4 LE CONTRERAS 2022 1 [facility] MONTELUKAST NA 10MG TAB TAKE ONE TABLET BY MOUTH EVERY DAY ORAL ACTIVE 09/06/2025 [id number] 5 LE CONTRERAS 2024 90 [facility] MONTELUKAST NA 10MG TAB TAKE ONE TABLET BY MOUTH EVERY DAY ORAL DISCONT INUED 12/18/2024 [id number] Manjinder WERNER 2023 90 [facility] MONTELUKAST NA 10MG TAB TAKE ONE TABLET BY MOUTH AT BEDTIME ORAL DISCONT INUED 02/12/2024 [id number] 4 LE CONTRERAS 2023 90 [facility] MONTELUKAST NA 10MG TAB TAKE ONE TABLET BY MOUTH AT BEDTIME ORAL DISCONT INUED 07/21/2024 [id number] 4 Manjinder 2023 30 [facility] MONTELUKAST NA 10MG TAB TAKE ONE TABLET BY MOUTH AT BEDTIME ORAL DISCONT INUED 07/13/2023 [id number] ,E GIOVANNY 2023 30 [facility] MONTELUKAST NA 10MG TAB TAKE ONE TABLET BY MOUTH AT BEDTIME TO PREVENT TROUBLE BREATHIN G ORAL DISCONT INUED 07/21/2024 [id number] 4 LE CONTRERAS 2023 90 [facility] MULTIVITAMI NS CAP/TAB TAKE 1 CAP/TAB BY MOUTH DAILY SUPPLEME NT ORAL ACTIVE 09/08/2024 [id number] 5 LE CONTRERAS 2023 100 [facility] MULTIVITAMI NS CAP/TAB TAKE 1 CAP/TAB BY MOUTH DAILY SUPPLEME NT ORAL DISCONT INUED 08/24/2023 [id number] 4 LE CONTRERAS 2022 90 [facility] NITROGLYCER IN 0.4MG TAB,SUBLING UAL DISSOLVE ONE TABLET UNDER THE TONGUE EVERY 5 MINUTES NEEDED FOR CHEST PAIN. IF NO IMPROVEM ENT AFTER THREE DOSES GO TO NEAREST EMERGENC Y ROOM. DISCARD OPENED BOTTLE AFTER 6 MONTHS SUBLIN GUAL 09/27/2023 [id number] 4 LE CONTRERAS 2022 100 [facility] OLODATEROL 2.5MCG/TIOT ROPIUM 2.5MCG/ACTU AT INHL,ORAL,6 0D,4GM INHALE 2 PUFFS BY MOUTH EVERY DAY RESPIR ATORY (INHAL ATION) ACTIVE 06/18/2025 [id number] 5 Manjinder 2024 3 [facility] OLODATEROL 2.5MCG/TIOT ROPIUM 2.5MCG/ACTU AT INHL,ORAL,6 0D,4GM INHALE 2 PUFFS BY MOUTH EVERY DAY RESPIR ATORY (INHAL ATION) DISCONT INUED 12/18/2024 [id number] WERNERManjinder Ortiz 2023 3 [facility] OLODATEROL 2.5MCG/TIOT ROPIUM 2.5MCG/ACTU AT INHL,ORAL,6 0D,4GM INHALE 2 PUFFS BY MOUTH EVERY DAY START USING AFTER FINISHIN G THE TRELEGY SAMPLES PER PROVIDER RESPIR ATORY (INHAL ATION) DISCONT INUED 02/21/2024 [id number] 4 LE CONTRERAS 2023 3 [facility] OMEPRAZOLE 40MG CAP,EC TAKE ONE CAPSULE BY MOUTH EVERY MORNING 30 MINUTES BEFORE BREAKFAS T ORAL DISCONT INUED BY PROVIDE R 03/08/2025 [id number] 5 LE CONTRERAS 2023 90 [facility] OMEPRAZOLE 40MG CAP,EC TAKE ONE CAPSULE BY MOUTH EVERY MORNING 30 MINUTES BEFORE BREAKFAS T ORAL DISCONT INUED 02/21/2024 [id number] 4 LE CONTRERAS 2022 90 [facility] PRAVASTATIN NA 20MG TAB TAKE ONE-HALF TABLET BY MOUTH SUNDAYS, MONDAYS, AND FRIDAYS FOR CHOLESTE ROL. CALL YOUR PROVIDER IF YOU HAVE MUSCLE PAIN, TENDERNE SS OR WEAKNESS ORAL ACTIVE 09/08/2024 [id number] 5 LE CONTRERAS 2023 45 [facility] PRAVASTATIN NA 20MG TAB TAKE ONE-HALF TABLET BY MOUTH SUNDAYS, MONDAYS, AND FRIDAYS FOR CHOLESTE ROL. CALL YOUR PROVIDER IF YOU HAVE MUSCLE PAIN, TENDERNE SS OR WEAKNESS ORAL DISCONT INUED 08/24/2023 [id number] 4 LE CONTRERAS BRITANY 2022 45 [facility] VITAMIN B COMPLEX CAP TAKE ONE CAPSULE BY MOUTH DAILY ORAL ACTIVE 09/08/2024 [id number] 5 LE CONTRERAS BRITANY 2023 100 [facility] VITAMIN B COMPLEX CAP TAKE ONE CAPSULE BY MOUTH DAILY ORAL DISCONT INUED 08/24/2023 [id number] 4 LE CONTRERAS BRITANY 2022 100 [facility] VITAMIN B COMPLEX CAP TAKE 1 CAPSULE BY MOUTH QAM ORAL ACTIVE MAHAD LOMAX 2011 [facility] Allergies, Adverse Reactions, Alerts Combined list of allergies from Department of Defense and Veterans Affairs facilities. It does not include entries that were removed or entered in error. Substance Category Reaction Severity Reaction type Status Date Reported Comments Source ATORVASTATIN Propensity to adverse reactions to drug (finding) Muscle pain active 0 [facility] CILOSTAZOL Propensity to adverse reactions to drug (finding) Low blood pressure active 1 [facility] FERROUS SULFATE Propensity to adverse reactions to drug (finding) Indigestion active 2 [facility] FERROUS SULFATE Propensity to adverse reactions to drug (finding) Abdominal pain active 6 [facility] ROSUVASTATIN Propensity to adverse reactions to drug (finding) Liver enzymes abnormal MILD active 9 [facility] ROSUVASTATIN Propensity to adverse reactions to drug (finding) ALT (SGPT) level raised MILD active 6 [facility] SIMVASTATIN Propensity to adverse reactions to drug (finding) Muscle pain MILD active 9 [facility] SIMVASTATIN Propensity to adverse reactions to drug (finding) active 6 [facility] SPIRONOLACTO NE Propensity to adverse reactions to drug (finding) Gynecomasti a active 0 [facility] Immunizations Combined list of available immunizations from the Department of Defense and Veterans Affairs facilities. 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 Comments Source INFLUENZA, INJECTABLE, QUADRIVALENT, PRESERVATIVE FREE 2018 150 complet ed [place] [facility]OSP[facility] PNEUMOCOCCAL CONJUGATE PCV 13 2 2018 133 complet ed [facility]ISTOR[facility] L INFORMATI ON - FROM OTHER REGISTRY, CANDE KIMBLE [facility] TDAP 2018 115 complet ed [facility] INFLUENZA, SEASONAL, INJECTABLE, PRESERVATIVE FREE 2017 140 complet ed [facility] INFLUENZA, SEASONAL, INJECTABLE, PRESERVATIVE FREE 2016 140 complet ed Left Deltoid 0.5ml IM [facility] PNEUMOCOCCAL POLYSACCHARID E PPV23 1 2016 33 complet ed HISTORICA L INFORMATI ON - FROM OTHER REGISTRY, [facility]DE [facility] INFLUENZA, SEASONAL, INJECTABLE, PRESERVATIVE FREE 2015 140 complet ed Left Deltoid 0.5ml IM [facility] INFLUENZA, SEASONAL, INJECTABLE, PRESERVATIVE FREE 2014 140 complet ed [facility] DIVISIO N INFLUENZA, UNSPECIFIED FORMULATION 2013 88 complet ed [facility] N INFLUENZA, UNSPECIFIED FORMULATION 2012 88 complet ed [facility] DIV[facility] N INFLUENZA, UNSPECIFIED FORMULATION [address] [facility] N INFLUENZA, UNSPECIFIED FORMULATION 2010 88 complet ed [facility] DIVISIO N INFLUENZA, UNSPECIFIED FORMULATION 2009 88 complet ed [facility] NOVEL INFLUENZA-H1N 1-09, ALL FORMULATIONS 2009 128 complet ed [employer] [facility] INFLUENZA, UNSPECIFIED FORMULATION 2008 88 complet ed [facility] TDAP 2008 115 complet ed Right Deltoid [facility] TDAP 2008 115 complet ed noted in web vista [facility] INFLUENZA, UNSPECIFIED FORMULATION 2007 88 complet ed [facility] INFLUENZA, UNSPECIFIED FORMULATION 2006 88 complet ed [facility] INFLUENZA, UNSPECIFIED FORMULATION 2005 BENJA CASISDY 88 comple t ed [facility] INFLUENZA, UNSPECIFIED FORMULATION 2004 88 complet ed [facility] INFLUENZA (HISTORICAL) 2003 88 complet ed [facility] N PNEUMOCOCCAL, UNSPECIFIED FORMULATION 2002 109 complet ed [facility] INFLUENZA (HISTORICAL) 2002 88 complet ed [facility] INFLUENZA, UNSPECIFIED FORMULATION 2001 88 complet ed [facility] INFLUENZA, UNSPECIFIED FORMULATION 2000 88 complet ed [facility] INFLUENZA (HISTORICAL) 1999 88 complet ed [facility] INFLUENZA (HISTORICAL) 1997 TIFFANY CUENCA 88 comple t ed [facility] INFLUENZA (HISTORICAL) 1996 BLANCA ADAIR 88 complet ed [facility] INFLUENZA (HISTORICAL) 1995 DERICK FINLEY 88 complet ed [facility] N PNEUMOCOCCAL, UNSPECIFIED FORMULATION 1993 MACARIO JONES 109 complet ed [facility] N Results Combined list of recent chemistry, hematology and other laboratory results from [employer] and [employer], ranging from 15 months to all on record, depending upon the facility. Order Name Results Value Reference Range Date Interpretation Specimen Comments Source A1C % HEMOGLOBIN A1C/HEMOGLO BIN.TOTAL IN BLOOD 6.2 0.0 - 5.6 08/27 H Specimen Type: BLOOD Comment: Normal: < or = 5.6% Pre-diabete s: 5.7-6.4% Diabetes Mellitus: > or = 6.5% Values obtained from A1C measurement s can vary. For typical A1C assays, a reported value of 7.0 could actually be between 6.72 and 7.28 if measured by a reference method. A reported value of 9.0 could actually be between 8.73 and 9.27. Ref: [email or web address]/[place] Pdata.asp Ordering Provider: WILY CONTRERAS Report Released Date/Time: Mar 07, 2024 10:28 AM Reporting Lab: [facility] [address] [facility] [address] Performing Lab: [facility] [address] [place] [address] [facility] CBC W/DIFF LEUKOCYTES [#/VOLUME] IN BLOOD BY AUTOMATED COUNT 7.6 10*3/u L 4.0 - 11.0 08/27 Specimen Type: BLOOD No comment entered. Ordering Provider: WILY CONTRERAS Report Released Date/Time: Mar 07, 2024 10:28 AM Reporting Lab: [facility] [address] [facility] [address] Performing Lab: [facility] [address] [facility] [address] [facility] CBC W/DIFF ERYTHROCYTE S [#/VOLUME] IN BLOOD BY AUTOMATED COUNT 4.27 10*6/u L 4.20 - 5.70 08/27 Specimen Type: BLOOD No comment entered. Ordering Provider: WILY CONTRERAS Report Released Date/Time: Mar 07, 2024 10:28 AM Reporting Lab: [facility] [address] [place] [address] Performing Lab: [address] [address] [facility] CBC W/DIFF HEMOGLOBIN [MASS/VOLUM E] IN BLOOD 12.3 g/dL 13.0 - 17.0 08/27 L Specimen Type: BLOOD No comment entered. Ordering Provider: WILY CONTRERAS Report Released Date/Time: Mar 07, 2024 10:28 AM Reporting Lab: [address] [address] Performing Lab: [address] [address] [facility] CBC W/DIFF HEMATOCRIT [VOLUME FRACTION] OF BLOOD BY AUTOMATED COUNT 38.5 40.0 - 51.0 08/27 L Specimen Type: BLOOD No comment entered. Ordering Provider: WILY CONTRERAS Report Released Date/Time: Mar 07, 2024 10:28 AM Reporting Lab: [address] [address] Performing Lab: [address] [address] [facility] CBC W/DIFF MCV [ENTITIC VOLUME] BY AUTOMATED COUNT 90.2 fL 82.0 - 99.0 08/27 Specimen Type: BLOOD No comment entered. Ordering Provider: WILY CONTRERAS Report Released Date/Time: Mar 07, 2024 10:28 AM Reporting Lab: [address] [address] Performing Lab: [address] [address] [facility] CBC W/DIFF MCHC [MASS/VOLUM E] BY AUTOMATED COUNT 28.8 pg 27.0 - 34.0 08/27 Specimen Type: BLOOD No comment entered. Ordering Provider: WILY CONTRERAS Report Released Date/Time: Mar 07, 2024 10:28 AM Reporting Lab: [address] [address] Performing Lab: [address] [address] [facility] CBC W/DIFF MCHC [MASS/VOLUM E] BY AUTOMATED COUNT 31.9 g/dL 31.0 - 37.0 08/27 Specimen Type: BLOOD No comment entered. Ordering Provider: WILY CNOTRERAS Report Released Date/Time: Mar 07, 2024 10:28 AM Reporting Lab: [facility] [address] [facility] [address] Performing Lab: [facility] [address] [place] [phone] [facility] CBC W/DIFF PLATELET MEAN VOLUME [ENTITIC VOLUME] IN BLOOD BY AUTOMATED COUNT 9.1 fL 8.0 - 12.0 08/27 Specimen Type: BLOOD No comment entered. Ordering Provider: WILY CONTRERAS Report Released Date/Time: Mar 07, 2024 10:28 AM Reporting Lab: [address] [address] Performing Lab: [address] [address] [facility] CBC W/DIFF PLATELETS [#/VOLUME] IN BLOOD BY AUTOMATED COUNT 403 10*3/u L 130 - 400 08/27 H Specimen Type: BLOOD No comment entered. Ordering Provider: WILY CONTRERAS Report Released Date/Time: Mar 07, 2024 10:28 AM Reporting Lab: [address] [address] Performing Lab: [address] [address] [facility] CBC W/DIFF ERYTHROCYTE DISTRIBUTIO N WIDTH [RATIO] BY AUTOMATED COUNT 15.5 < 15.0 - 15.0 08/27 H Specimen Type: BLOOD No comment entered. Ordering Provider: WILY CONTRERAS Report Released Date/Time: Mar 07, 2024 10:28 AM Reporting Lab: [facility] [address] [place] [address] Performing Lab: [facility] [address] [place] [address] [facility] CBC W/DIFF NEUTROPHILS /100 LEUKOCYTES IN BLOOD BY AUTOMATED COUNT 67.2 08/27 Specimen Type: BLOOD No comment entered. Ordering Provider: WILY CONTRERAS Report Released Date/Time: Mar 07, 2024 10:28 AM Reporting Lab: [address] [address] Performing Lab: [facility] [address] [place] [address] [facility] CBC W/DIFF LYMPHOCYTES /100 LEUKOCYTES IN BLOOD BY AUTOMATED COUNT 22.1 08/27 Specimen Type: BLOOD No comment entered. Ordering Provider: WILY CONTRERAS Report Released Date/Time: Mar 07, 2024 10:28 AM Reporting Lab: [facility] [address] [facility] [address] Performing Lab: [facility] [address] [facility] [address] [facility] CBC W/DIFF MONOCYTES/1 00 LEUKOCYTES IN BLOOD BY AUTOMATED COUNT 5.5 08/27 Specimen Type: BLOOD No comment entered. Ordering Provider: WILY CONTRERAS Report Released Date/Time: Mar 07, 2024 10:28 AM Reporting Lab: [facility] [address] [facility] [address] Performing Lab: [facility] [address] [facility] [address] [facility] CBC W/DIFF EOSINOPHILS /100 LEUKOCYTES IN BLOOD BY AUTOMATED COUNT 3.7 08/27 Specimen Type: BLOOD No comment entered. Ordering Provider: WILY CONTRERAS Report Released Date/Time: Mar 07, 2024 10:28 AM Reporting Lab: [facility] [address] [facility] [address] Performing Lab: [facility] [address] [facility] [address] [facility] CBC W/DIFF BASOPHILS/1 00 LEUKOCYTES IN BLOOD BY AUTOMATED COUNT 0.8 08/27 Specimen Type: BLOOD No comment entered. Ordering Provider: WILY CONTRERAS Report Released Date/Time: Mar 07, 2024 10:28 AM Reporting Lab: [facility] [address] [facility] [address] Performing Lab: [facility] [address] [facility] [address] [facility] CBC W/DIFF IMMATURE GRANULOCYTE S/100 LEUKOCYTES IN BLOOD 0.7 08/27 Specimen Type: BLOOD No comment entered. Ordering Provider: WILY CONTRERAS Report Released Date/Time: Mar 07, 2024 10:28 AM Reporting Lab: [facility] [address] [facility] [address] Performing Lab: [facility] [address] [facility] [address] [facility] CBC W/DIFF NEUTROPHILS [#/VOLUME] IN BLOOD BY AUTOMATED COUNT 5.1 10*3/u L 1.5 - 8.0 08/27 Specimen Type: BLOOD No comment entered. Ordering Provider: WILY CONTRERAS Report Released Date/Time: Mar 07, 2024 10:28 AM Reporting Lab: [address] [address] Performing Lab: [address] [address] [facility] CBC W/DIFF LYMPHOCYTES [#/VOLUME] IN BLOOD BY AUTOMATED COUNT 1.7 10*3/u L 1.0 - 4.0 08/27 Specimen Type: BLOOD No comment entered. Ordering Provider: WILY CONTRERAS Report Released Date/Time: Mar 07, 2024 10:28 AM Reporting Lab: [address] [address] Performing Lab: [place] [phone] [facility] CBC W/DIFF MONOCYTES [#/VOLUME] IN BLOOD BY AUTOMATED COUNT 0.4 10*3/u L 0.2 - 1.0 08/27 Specimen Type: BLOOD No comment entered. Ordering Provider: WILY CONTRERAS Report Released Date/Time: Mar 07, 2024 10:28 AM Reporting Lab: [address] [address] Performing Lab: [address] [address] [facility] CBC W/DIFF EOSINOPHILS [#/VOLUME] IN BLOOD BY AUTOMATED COUNT 0.3 10*3/u L 0.0 - 0.4 08/27 Specimen Type: BLOOD No comment entered. Ordering Provider: WILY CONTRERAS Report Released Date/Time: Mar 07, 2024 10:28 AM Reporting Lab: [address] [address] Performing Lab: [address] [address] [facility] CBC W/DIFF BASOPHILS [#/VOLUME] IN BLOOD BY AUTOMATED COUNT 0.1 10*3/u L 0.0 - 0.2 08/27 Specimen Type: BLOOD No comment entered. Ordering Provider: WILY CONTRERAS Report Released Date/Time: Mar 07, 2024 10:28 AM Reporting Lab: [facility] [address] [place] [address] Performing Lab: [address] [address] [facility] CBC W/DIFF IMMATURE GRANULOCYTE S/100 LEUKOCYTES IN BLOOD 0.1 10*3/u L 0.0 - 0.5 08/27 Specimen Type: BLOOD No comment entered. Ordering Provider: WILY CONTRERAS Report Released Date/Time: Mar 07, 2024 10:28 AM Reporting Lab: [address] [address] Performing Lab: [address] [address] [facility] CBC W/DIFF NUCLEATED ERYTHROCYTE S/100 ERYTHROCYTE S IN BLOOD 0.0 /100{W BCs} 0.0 - 0.2 08/27 Specimen Type: BLOOD No comment entered. Ordering Provider: WILY CONTRERAS Report Released Date/Time: Mar 07, 2024 10:28 AM Reporting Lab: [address] [address] Performing Lab: [address] [address] [facility] CBC W/DIFF NUCLEATED ERYTHROCYTE S [#/VOLUME] IN BLOOD <0.011 0*3/uL 0.00 - 0.01 08/27 Specimen Type: BLOOD No comment entered. Ordering Provider: WILY CONTRERAS Report Released Date/Time: Mar 07, 2024 10:28 AM Reporting Lab: [address] [address] Performing Lab: [address] [address] [facility] COMPREHEN SIVE PNL ANION GAP IN SERUM OR PLASMA 6 mmol/L 5 - 15 08/27 Specimen Type: PLASMA Comment: eGFR was calculated using the CKD-EPI Creatinine (2020) equation. Ordering Provider: WILY CONTRERAS Report Released Date/Time: Mar 07, 2024 10:28 AM Reporting Lab: [facility] [address] [facility] [address] Performing Lab: [facility] [address] [facility] [address] [facility] COMPREHEN SIVE PNL GLOMERULAR FILTRATION RATE/1.73 SQ M.PREDICTED [VOLUME RATE/AREA] IN SERUM, PLASMA OR BLOOD BY CREATININE- BASED FORMULA (CKD-EPI 2020) 54 mL/min /{1.73 _m2} 60 08/27 L Specimen Type: PLASMA Comment: eGFR was calculated using the CKD-EPI Creatinine (2020) equation. Ordering Provider: WILY CONTRERAS Report Released Date/Time: Mar 07, 2024 10:28 AM Reporting Lab: [facility] [address] [place] [phone] Performing Lab: [facility] [address] [place] [address] [facility] COMPREHEN SIVE PNL GLUCOSE [MASS/VOLUM E] IN SERUM OR PLASMA 113 mg/dL 70 - 99 08/27 H Specimen Type: PLASMA Comment: eGFR was calculated using the CKD-EPI Creatinine (2020) equation. Ordering Provider: WILY CONTRERAS Report Released Date/Time: Mar 07, 2024 10:28 AM Reporting Lab: [facility] [address] [facility] [address] Performing Lab: [facility] [address] [place] [phone] [facility] COMPREHEN SIVE PNL POTASSIUM [MOLES/VOLU ME] IN SERUM OR PLASMA 4.6 mmol/L 3.5 - 4.7 08/27 Specimen Type: PLASMA Comment: eGFR was calculated using the CKD-EPI Creatinine (2020) equation. Ordering Provider: WILY CONTRERAS Report Released Date/Time: Mar 07, 2024 10:28 AM Reporting Lab: [facility] [address] [place] [phone] Performing Lab: [address] [address] [facility] COMPREHEN SIVE PNL SODIUM [MOLES/VOLU ME] IN SERUM OR PLASMA 138 mmol/L 136 - 145 08/27 Specimen Type: PLASMA Comment: eGFR was calculated using the CKD-EPI Creatinine (2020) equation. Ordering Provider: WILY CONTRERAS Report Released Date/Time: Mar 07, 2024 10:28 AM Reporting Lab: [address] [address] Performing Lab: [address] [address] [facility] COMPREHEN SIVE PNL BILIRUBIN.T OTAL [MASS/VOLUM E] IN SERUM OR PLASMA 0.4 mg/dL 0.2 - 1.2 08/27 Specimen Type: PLASMA Comment: eGFR was calculated using the CKD-EPI Creatinine (2020) equation. Ordering Provider: WILY CONTRERAS Report Released Date/Time: Mar 07, 2024 10:28 AM Reporting Lab: [address] [address] Performing Lab: [address] [address] [facility] COMPREHEN SIVE PNL PROTEIN [MASS/VOLUM E] IN SERUM OR PLASMA 7.9 g/dL 5.7 - 8.2 08/27 Specimen Type: PLASMA Comment: eGFR was calculated using the CKD-EPI Creatinine (2020) equation. Ordering Provider: WILY CONTRERAS Report Released Date/Time: Mar 07, 2024 10:28 AM Reporting Lab: [address] [address] Performing Lab: [address] [address] [facility] COMPREHEN SIVE PNL ALBUMIN [MASS/VOLUM E] IN SERUM OR PLASMA 4.8 g/dL 3.4 - 5.0 08/27 Specimen Type: PLASMA Comment: eGFR was calculated using the CKD-EPI Creatinine (2020) equation. Ordering Provider: WILY CONTRERAS Report Released Date/Time: Mar 07, 2024 10:28 AM Reporting Lab: [address] [address] Performing Lab: [address] [address] [facility] COMPREHEN SIVE PNL ALKALINE PHOSPHATASE [ENZYMATIC ACTIVITY/VO LUME] IN SERUM OR PLASMA 42 U/L 45 - 117 08/27 L Specimen Type: PLASMA Comment: eGFR was calculated using the CKD-EPI Creatinine (2020) equation. Ordering Provider: WILY CONTRERAS Report Released Date/Time: Mar 07, 2024 10:28 AM Reporting Lab: [address] [address] Performing Lab: [address] [address] [facility] COMPREHEN SIVE PNL ALANINE AMINOTRANSF ERASE [ENZYMATIC ACTIVITY/VO LUME] IN SERUM OR PLASMA 25 U/L 10 - 65 08/27 Specimen Type: PLASMA Comment: eGFR was calculated using the CKD-EPI Creatinine (2020) equation. Ordering Provider: WILY CONTRERAS Report Released Date/Time: Mar 07, 2024 10:28 AM Reporting Lab: [address] [address] Performing Lab: [address] [address] [facility] COMPREHEN SIVE PNL ASPARTATE AMINOTRANSF ERASE [ENZYMATIC ACTIVITY/VO LUME] IN SERUM OR PLASMA 23 U/L 10 - 37 08/27 Specimen Type: PLASMA Comment: eGFR was calculated using the CKD-EPI Creatinine (2020) equation. Ordering Provider: WILY CONTRERAS Report Released Date/Time: Mar 07, 2024 10:28 AM Reporting Lab: [address] [address] Performing Lab: [address] [address] [facility] COMPREHEN SIVE PNL UREA NITROGEN [MASS/VOLUM E] IN SERUM OR PLASMA 31 mg/dL 7 - 21 08/27 H Specimen Type: PLASMA Comment: eGFR was calculated using the CKD-EPI Creatinine (2020) equation. Ordering Provider: WILY CONTRERAS Report Released Date/Time: Mar 07, 2024 10:28 AM Reporting Lab: [address] [address] Performing Lab: [address] [address] [facility] COMPREHEN SIVE PNL CALCIUM, TOTAL 10.1 mg/dL 8.7 - 10.4 08/27 Specimen Type: PLASMA Comment: eGFR was calculated using the CKD-EPI Creatinine (2020) equation. Ordering Provider: WILY CONTRERAS Report Released Date/Time: Mar 07, 2024 10:28 AM Reporting Lab: [address] [address] Performing Lab: [address] [address] [facility] COMPREHEN SIVE PNL CARBON DIOXIDE, TOTAL [MOLES/VOLU ME] IN SERUM OR PLASMA 25 mmol/L 21 - 32 08/27 Specimen Type: PLASMA Comment: eGFR was calculated using the CKD-EPI Creatinine (2020) equation. Ordering Provider: WILY CONTRERAS Report Released Date/Time: Mar 07, 2024 10:28 AM Reporting Lab: [address] [address] Performing Lab: [address] [address] [facility] COMPREHEN SIVE PNL CHLORIDE [MOLES/VOLU ME] IN SERUM OR PLASMA 107 mmol/L 98 - 109 08/27 Specimen Type: PLASMA Comment: eGFR was calculated using the CKD-EPI Creatinine (2020) equation. Ordering Provider: WILY CONTRERAS Report Released Date/Time: Mar 07, 2024 10:28 AM Reporting Lab: [address] [address] Performing Lab: [address] [address] [facility] COMPREHEN SIVE PNL CREATININE [MASS/VOLUM E] IN SERUM OR PLASMA 1.40 mg/dL 0.73 - 1.18 08/27 H Specimen Type: PLASMA Comment: eGFR was calculated using the CKD-EPI Creatinine (2020) equation. Ordering Provider: WILY CONTRERAS Report Released Date/Time: Mar 07, 2024 10:28 AM Reporting Lab: [address] [address] Performing Lab: [address] [address] [facility] FERRITIN (CONTRERAS) FERRITIN [MASS/VOLUM E] IN SERUM OR PLASMA 27.9 ng/mL 26.0 - 388.0 08/27 Specimen Type: SERUM Comment: Methotrexat e and Leucovorin (folinic acid) interfere with the measurement of folate. Patients receiving these drugs should not be tested for folate by this method. Ordering Provider: WILY CONTRERAS Report Released Date/Time: May 24, 2024 09:08 AM Reporting Lab: [facility] [address] [facility] [address] Performing Lab: [facility] [address] [facility] [address] [facility] FOLATE (CONTRERAS) FOLATE [MASS/VOLUM E] IN SERUM OR PLASMA >48.00 ng/mL 5.39 - 48.00 08/27 Specimen Type: SERUM Comment: Methotrexat e and Leucovorin (folinic acid) interfere with the measurement of folate. Patients receiving these drugs should not be tested for folate by this method. Ordering Provider: WILY CONTRERAS Report Released Date/Time: May 03, 2024 12:41 PM Reporting Lab: [facility] [address] [facility] [address] Performing Lab: [facility] [address] [facility] [address] [facility] IRON PANEL IRON [MASS/VOLUM E] IN SERUM OR PLASMA 69 ug/dL 65 - 175 08/27 Specimen Type: SERUM Comment: TIBC may be inaccurate if patient is on iron dextran in the last 14 days. Ordering Provider: WILY CONTRERAS Report Released Date/Time: Mar 07, 2024 10:32 AM Reporting Lab: [facility] [address] [facility] [address] Performing Lab: [place] [address] [facility] [address] [facility] IRON PANEL IRON BINDING CAPACITY [MASS/VOLUM E] IN SERUM OR PLASMA 395 ug/dL 250 - 450 08/27 Specimen Type: SERUM Comment: TIBC may be inaccurate if patient is on iron dextran in the last 14 days. Ordering Provider: WILY CONTRERAS Report Released Date/Time: Mar 07, 2024 10:32 AM Reporting Lab: [facility] [address] [facility] [address] Performing Lab: [facility] [address] [facility] [address] [facility] IRON PANEL IRON SATURATION [MASS FRACTION] IN SERUM OR PLASMA 17 10 - 50 08/27 Specimen Type: SERUM Comment: TIBC may be inaccurate if patient is on iron dextran in the last 14 days. Ordering Provider: WILY CONTRERAS Report Released Date/Time: Mar 07, 2024 10:32 AM Reporting Lab: [address] [address] Performing Lab: [address] [address] [facility] VITAMIN B12 (CONTRERAS) COBALAMIN (VITAMIN B12) [MASS/VOLUM E] IN SERUM OR PLASMA 728 pg/mL 193 - 986 08/27 Specimen Type: SERUM Comment: Methotrexat e and Leucovorin (folinic acid) interfere with the measurement of folate. Patients receiving these drugs should not be tested for folate by this method. Ordering Provider: WILY CONTRERAS Report Released Date/Time: Jun 28, 2024 07:56 AM Reporting Lab: [address] [address] Performing Lab: [facility] [address] [facility] [address] [facility] A1C % HEMOGLOBIN A1C/HEMOGLO BIN.TOTAL IN BLOOD 6.1 0.0 - 5.6 02/28 H Specimen Type: BLOOD Comment: Normal: < or = 5.6% Pre-diabete s: 5.7-6.4% Diabetes Mellitus: > or = 6.5% Values obtained from A1C measurement s can vary. For typical A1C assays, a reported value of 7.0 could actually be between 6.72 and 7.28 if measured by a reference method. A reported value of 9.0 could actually be between 8.73 and 9.27. Ref: [email or web address] Ordering Provider: WILY CONTRERAS Report Released Date/Time: Sep 08, 2023 10:52 AM Reporting Lab: [address] [address] Performing Lab: [address] [address] [facility] LIPID PNL CHOLESTEROL IN HDL [MASS/VOLUM E] IN SERUM OR PLASMA 41 mg/dL 60 02/28 L Specimen Type: PLASMA Comment: Low-risk levels (desirable) <200 mg/dL Moderate-ri sk levels (borderline ) 200-239 mg/dL High-risk levels: >= 240 mg/dL Normal: <150 mg/dL -Borderline High: 150-199 mg/dL -High: 200-499 mg/dL -Very High: >500 mg/dL eGFR was calculated using the CKD-EPI Creatinine (2020) equation. Optimal: <100 mg/dL -Near Optimal/Abo ve Optimal: 100-129 mg/dL -Borderline High: 130-159 mg/dL -High: 160-189 mg/dL -Very High: >=190 mg/dL Ordering Provider: WILY CONTRERAS Report Released Date/Time: Sep 08, 2023 10:52 AM Reporting Lab: [address] [address] Performing Lab: [address] [address] [facility] LIPID PNL TRIGLYCERID E [MASS/VOLUM E] IN SERUM OR PLASMA 214 mg/dL 02/28 H Specimen Type: PLASMA Comment: Low-risk levels (desirable) <200 mg/dL Moderate-ri sk levels (borderline ) 200-239 mg/dL High-risk levels: >= 240 mg/dL Normal: <150 mg/dL -Borderline High: 150-199 mg/dL -High: 200-499 mg/dL -Very High: >500 mg/dL eGFR was calculated using the CKD-EPI Creatinine (2020) equation. Optimal: <100 mg/dL -Near Optimal/Abo ve Optimal: 100-129 mg/dL -Borderline High: 130-159 mg/dL -High: 160-189 mg/dL -Very High: >=190 mg/dL Ordering Provider: WILY CONTRERAS Report Released Date/Time: Sep 08, 2023 10:52 AM Reporting Lab: [address] [address] Performing Lab: [address] [address] [facility] LIPID PNL CHOLESTEROL IN LDL [MASS/VOLUM E] IN SERUM OR PLASMA BY DIRECT ASSAY can 02/28 Specimen Type: PLASMA Comment: Low-risk levels (desirable) <200 mg/dL Moderate-ri sk levels (borderline ) 200-239 mg/dL High-risk levels: >= 240 mg/dL Normal: <150 mg/dL -Borderline High: 150-199 mg/dL -High: 200-499 mg/dL -Very High: >500 mg/dL eGFR was calculated using the CKD-EPI Creatinine (2020) equation. Optimal: <100 mg/dL -Near Optimal/Abo ve Optimal: 100-129 mg/dL -Borderline High: 130-159 mg/dL -High: 160-189 mg/dL -Very High: >=190 mg/dL Ordering Provider: WILY CONTRERAS Report Released Date/Time: Sep 08, 2023 10:52 AM Reporting Lab: [address] [address] Performing Lab: [address] [address] [facility] LIPID PNL CHOLESTEROL [MASS/VOLUM E] IN SERUM OR PLASMA 152 mg/dL 02/28 Specimen Type: PLASMA Comment: Low-risk levels (desirable) <200 mg/dL Moderate-ri sk levels (borderline ) 200-239 mg/dL High-risk levels: >= 240 mg/dL Normal: <150 mg/dL -Borderline High: 150-199 mg/dL -High: 200-499 mg/dL -Very High: >500 mg/dL eGFR was calculated using the CKD-EPI Creatinine (2020) equation. Optimal: <100 mg/dL -Near Optimal/Abo ve Optimal: 100-129 mg/dL -Borderline High: 130-159 mg/dL -High: 160-189 mg/dL -Very High: >=190 mg/dL Ordering Provider: WILY CONTRERAS Report Released Date/Time: Sep 08, 2023 10:52 AM Reporting Lab: [address] [address] Performing Lab: [address] [address] [facility] LIPID PNL CHOLESTEROL IN LDL [MASS/VOLUM E] IN SERUM OR PLASMA BY CALCULATION 68 mg/dL 02/28 Specimen Type: PLASMA Comment: Low-risk levels (desirable) <200 mg/dL Moderate-ri sk levels (borderline ) 200-239 mg/dL High-risk levels: >= 240 mg/dL Normal: <150 mg/dL -Borderline High: 150-199 mg/dL -High: 200-499 mg/dL -Very High: >500 mg/dL eGFR was calculated using the CKD-EPI Creatinine (2020) equation. Optimal: <100 mg/dL -Near Optimal/Abo ve Optimal: 100-129 mg/dL -Borderline High: 130-159 mg/dL -High: 160-189 mg/dL -Very High: >=190 mg/dL Ordering Provider: WILY CONTRERAS Report Released Date/Time: Sep 08, 2023 10:52 AM Reporting Lab: [address] [address] Performing Lab: [address] [address] [facility] URINE ALBUMIN/C REAT (ATHOL URINE) MICROALBUMI N [MASS/VOLUM E] IN URINE 1.8 mg/dL <2.0 - 2.0 02/28 Specimen Type: URINE No comment entered. Ordering Provider: WILY CONTRERAS Report Released Date/Time: Sep 08, 2023 10:52 AM Reporting Lab: [address] [address] Performing Lab: [address] [address] [facility] URINE ALBUMIN/C REAT (RAND URINE) CREATININE [MASS/VOLUM E] IN URINE 104.60 mg/dL 40 - 278 02/28 Specimen Type: URINE No comment entered. Ordering Provider: WILY CONTRERAS Report Released Date/Time: Sep 08, 2023 10:52 AM Reporting Lab: [address] [address] Performing Lab: [address] [address] [facility] URINE ALBUMIN/C REAT (ATHOL URINE) MICROALBUMI N/CREATININ E [RATIO] IN URINE 17 mg/g <30 - 30 02/28 Specimen Type: URINE No comment entered. Ordering Provider: WILY CONTRERAS Report Released Date/Time: Sep 08, 2023 10:52 AM Reporting Lab: [address] [address] Performing Lab: [address] [address] [facility] Vital Signs Combined list of inpatient and outpatient Vital Signs from Department of Defense and Veterans Affairs, ranging from 12 months to all on record, depending upon the facility. Vital Sign Value Date Comments Source SYSTOLIC BLOOD PRESSURE 131 09/05/2024 09:17:31 [facility] DIASTOLIC BLOOD PRESSURE 72 09/05/2024 09:17:31 [facility] PULSE OXIMETRY 94 % 09/05/2024 09:17:31 [facility] WEIGHT 238.6 09/05/2024 09:17:31 [facility] BMI 36 kg/m2 09/05/2024 09:17:31 [facility] PAIN 1 09/05/2024 09:17:31 [facility] TEMPERATURE 97.9 09/05/2024 09:17:31 [facility] PULSE 66 09/05/2024 09:17:31 [facility] RESPIRATION 16 09/05/2024 09:17:31 [facility] SYSTOLIC BLOOD PRESSURE 80 06/19/2024 13:13:09 [facility] DIASTOLIC BLOOD PRESSURE 53 06/19/2024 13:13:09 [facility] PULSE OXIMETRY 94 06/19/2024 13:13:09 [facility] WEIGHT 246.4 06/19/2024 13:13:09 [facility] BMI 38 kg/m2 06/19/2024 13:13:09 [facility] TEMPERATURE 98.6 06/19/2024 13:13:09 [facility] PULSE 62 06/19/2024 13:13:09 [facility] RESPIRATION 18 06/19/2024 13:13:09 [facility] SYSTOLIC BLOOD PRESSURE 124 03/07/2024 10:02:34 [facility] DIASTOLIC BLOOD PRESSURE 54 03/07/2024 10:02:34 [facility] PULSE OXIMETRY 94 03/07/2024 10:02:34 [facility] WEIGHT 241.9 03/07/2024 10:02:34 [facility] BMI 37 kg/m2 03/07/2024 10:02:34 [facility] PAIN 0 03/07/2024 10:02:34 [facility] TEMPERATURE 97.9 03/07/2024 10:02:34 [facility] PULSE 59 03/07/2024 10:02:[facility] RESPIRATION 16 03/07/2024 10:02:34 [facility] SYSTOLIC BLOOD PRESSURE 115 01/16/2024 11:07:29 [facility] DIASTOLIC BLOOD PRESSURE 58 01/16/2024 11:07:29 [facility] PULSE OXIMETRY 96 01/16/2024 11:07:29 [facility] WEIGHT 240.5 01/16/2024 11:07:29 [facility] BMI 37 kg/m2 01/16/2024 11:07:29 [facility] PAIN 4 01/16/2024 11:07:29 [facility] TEMPERATURE 97.7 01/16/2024 11:07:29 [facility] PULSE 61 01/16/2024 11:07:29 [facility] RESPIRATION 18 01/16/2024 11:07:29 [facility] SYSTOLIC BLOOD PRESSURE 115 11/14/2023 11:20:33 [facility] DIASTOLIC BLOOD PRESSURE 48 11/14/2023 11:20:33 [facility] PULSE OXIMETRY 94 11/14/2023 11:20:33 [facility] WEIGHT 245.3 11/14/2023 11:20:33 [facility] BMI 37 kg/m2 11/14/2023 11:20:33 [facility] PAIN 3 11/14/2023 11:20:33 [facility] TEMPERATURE 98.1 11/14/2023 11:20:33 [facility] PULSE 60 11/14/2023 11:20:33 [facility] RESPIRATION 16 11/14/2023 11:20:33 [facility] Encounters Combined list of: 1) Encounters from Department of Veterans Affairs facilities going backup to the last 18 months, not all VA inpatient encounters are included; 2) Encounters from the Department of Defense facilities going backup to 280 months. Location Location Details Encounter Type Encounter Number Reason For Visit Attending Provider ADM Date DC Date Status Disposition Source [facility] Outpatient Encounter [id number] Diagnos is: ICD-10- CM 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 elsewhe re CHARISSE CUENCA A 03/21 [facility] Outpatient Encounter [id number] Diagnos is: ICD-10- CM B35.1 Tinea unguium AB EROS IGASHARON A 04/06 [facility] Outpatient Encounter [id number] 04/08 [facility] Outpatient Encounter [id number] [id number] 04/12 [facility] Outpatient Encounter [id number] [id number] 04/19 [facility] TRIM NAIL(S) ANY NUMBER [id number] [id number] Diagnos is: ICD-10- CM Z71.89 Other specifi ed membership counselor LIN Kenny 04/19 [facility] OFFICE O/P EST MOD 30 MIN [id number] Diagnos is: ICD-10- CM E11.40 Type 2 diabete s mellitu s with diabeti c neuropa thy, unsAB Mike IGAIL A 04/19 [facility] Outpatient Encounter [id number] [id number] 04/19 [facility] OFF/OP CNSLTJ NEW/EST LOW 30 [id number] [id number] Diagnos is: ICD-10- CM Z46.89 Encount er for fitting and adjustm ent of oth devices CHAITANYA ROSS 04/19 [facility] Outpatient Encounter [id number] [id number] Diagnos is: ICD-10- CM E11.40 Type 2 diabete s mellitu s with diabeti c neuropa thy, GAVI Moreno 04/26 [facility] FEE [id number] [id number] Diagnos is: ICD-10- CM Z71.89 Other specifi ed membership counselor JACKIE Gaston 05/10 [facility] ORTHOTIC MGMT&TRAIN G 1ST ENC [id number] [id number] Diagnos is: ICD-10- CM I89.0 Lymphed jeffery, not elsewhe re classif ied CORA GARCIA 05/10 [facility] Outpatient Encounter [id number] [id number] 06/12 [facility] Outpatient Encounter [id number] [id number] 06/13 [facility] FEE [id number] [id number] Diagnos is: ICD-10- CM Z71.89 Other specifi ed membership counselor JACKIE Gaston 06/15 [facility] OPC OFFICE O/P EST SF 10 MIN [id number] [id number] Diagnos is: ICD-10- CM Z46.89 Encount er for fitting and adjustm ent of oth devices CHAITANYA ROSS 06/15 [facility] OPC [facility] Outpatient Encounter [id number] [id number] 07/10 [facility] Outpatient Encounter [id number] [id number] 07/10 [facility] Outpatient Encounter [id number] [id number] 07/10 [facility] Outpatient Encounter [id number] [id number] 07/10 [facility] Outpatient Encounter [id number] [id number] 07/11 [facility] Outpatient Encounter 48869-9.55 [id number] 07/11 [facility] Outpatient Encounter [id number] [id number] 07/11 [facility] Outpatient Encounter [id number] [id number] 07/11 [facility] Outpatient Encounter [id number] [id number] 07/11 [facility] Outpatient Encounter [id number] [id number] 07/13 [facility] Outpatient Encounter [id number] [id number] 07/19 [facility] Outpatient Encounter [id number] [id number] 07/20 [facility] Outpatient Encounter [id number] [id number] 07/20 [facility] Outpatient Encounter [id number] [id number] 07/20 [facility] Outpatient Encounter [id number] [id number] 07/23 [facility] Outpatient Encounter [id number] [id number] 07/23 [facility] Outpatient Encounter [id number] [id number] 07/24 [facility] Outpatient Encounter [id number] [id number] 07/25 [facility] Outpatient Encounter [id number] [id number] 07/25 [facility] TRIM NAIL(S) 79350-2.55 [id number] Diagnos is: ICD-10- CM Z71.89 Other specifi ed membership counselor JACKIE Gaston 07/26 [facility] OPC OFFICE O/P EST MOD 30 MIN [id number] [id number] Diagnos is: ICD-10- CM E11.40 Type 2 diabete s mellitu s with diabeti c neuropa thy, unsp AB TASH COONEY 07/26 [facility] Outpatient Encounter [id number] [id number] 07/31 [facility] Outpatient Encounter [id number] [id number] 08/07 [facility] Outpatient Encounter [id number] [id number] 08/08 [facility] Outpatient Encounter [id number] [id number] 08/08 [facility] Outpatient Encounter 75402-4.55 [id number] 08/08 [facility] Outpatient Encounter [id number] [id number] 08/08 [facility] Outpatient Encounter [id number] [id number] 08/10 [facility] OFFICE O/P EST MOD 30 MIN [id number] [id number] Diagnos is: ICD-10- CM L98.9 Disorde r of the skin and subcuta neous tissue, unspeci fied BRISEIDA CONTRERAS 09/07 [facility] IELD [facility] Outpatient Encounter [id number] [id number] 09/07 [facility] Outpatient Encounter [id number] [id number] 09/19 [facility] Outpatient Encounter [id number] [id number] 09/19 [facility] PRO PHONE CALL 21-30 MIN 83308-7.55 [id number] Diagnos is: ICD-10- CM Z71.89 Other specifi ed membership counselor PENNIE Feldman 09/19 [facility] Outpatient Encounter [id number] [id number] 09/20 [facility] Outpatient Encounter [id number] [id number] 09/20 [facility] Outpatient Encounter [id number] [id number] 10/01 [facility] Outpatient Encounter 28083-6.55 [id number] 10/02 [facility] Outpatient Encounter [id number] [id number] 10/02 [facility] Outpatient Encounter [id number] [id number] 10/11 [facility] En[facility] [id number] [id number] 10/18 [facility] Outpatient Encounter [id number] [id number] 10/26 [facility] Outpatient Encounter 77193-2.55 [id number] 10/26 [facility] Outpatient Encounter [id number] [id number] 10/26 [facility] Outpatient Encounter [id number] [id number] 10/26 [facility] Encounter [id number] [id number] 10/31 [facility] Outpatient Encounter [id number] [id number] 11/02 [facility] Outpatient Encounter [id number] [id number] 11/05 [facility] Outpatient Encounter [id number] [id number] 11/06 [facility] Outpatient Encounter [id number] [id number] 11/09 [facility] Outpatient Encounter [id number] [id number] 11/09 [facility] Outpatient Encounter [id number] [id number] 11/09 [facility] OFFICE O/P EST MOD 30 MIN [id number] [id number] Diagnos is: ICD-10- CM M65.331 Trigger finger, right middle finger BEN,SCO TT BRITANY 11/13 [facility] Outpatient Encounter [id number] [id number] 11/13 [facility] Outpatient Encounter [id number] [id number] 11/14 [facility] Outpatient Encounter [id number] [id number] 11/21 [facility] Outpatient Encounter 95649-9.55 [id number] 11/21 [facility] Outpatient Encounter [id number] [id number] 11/22 [facility] Outpatient Encounter [id number] [id number] 11/27 [facility] Outpatient Encounter [id number] [id number] 12/03 [facility] Outpatient Encounter [id number] [id number] 12/05 [facility] Outpatient Encounter [id number] [id number] 12/17 [facility] Outpatient Encounter [id number] [id number] 12/25 [facility] TRIM NAIL(S) ANY NUMBER [id number] [id number] Diagnos is: ICD-10- CM Z71.89 Other specifi ed membership counselor LIN Kenny 01/01 [facility] OPC OFFICE O/P EST LOW 20 MIN [id number] [id number] Diagnos is: ICD-10- CM E11.40 Type 2 diabete s mellitu s with diabeti c neuropa thy, unsp AB EROS IGASHARON A 01/01 [facility] Outpatient Encounter [id number] [id number] 01/03 [facility] Outpatient Encounter [id number] [id number] 01/07 [facility] Outpatient Encounter [id number] [id number] Diagnos is: ICD-10- CM L05.01 Pilonid al cyst with abscess JS IVY 01/07 [facility] Outpatient Encounter [id number] [id number] 01/09 [facility] Outpatient Encounter [id number] [id number] 6 VINCE DASILVA 01/11 [facility] Outpatient Encounter [id number] [id number] 01/11 [facility] Out[facility] Encounter [id number] [id number] 01/11 [facility] Outpatient Encounter [id number] [id number] 01/11 [facility] Outpatient Encounter [id number] [id number] BRODY ZEE MD 01/11 [facility] OFFICE O/P EST SF 10 MIN [id number] [id number] Diagnos is: ICD-10- CM L02.214 [place] us abscess of groin BENLEJessica GARG 01/15 [facility] Outpatient Encounter [id number] [id number] 01/15 [facility] Outpatient Encounter [id number] [id number] 01/16 [facility] Outpatient Encounter [id number] [id number] 01/16 [facility] Outpatient Encounter [id number] [id number] 01/16 [facility] Outpatient Encounter [id number] [id number] Diagnos is: ICD-10- CM N39.0 Urinary tract infecti on, site not specifi ed JUAN MIGUEL ACEVEDO 01/16 [facility] Outpatient Encounter [id number] [id number] 01/17 [facility] Outpatient Encounter [id number] [id number] 01/17 [facility] Outpatient Encounter [id number] [id number] 01/18 [facility] Outpatient Encounter [id number] [id number] 01/18 [facility] Outpatient Encounter [id number] [id number] 01/18 [facility] Outpatient Encounter [id number] [id number] 01/21 [facility] Outpatient Encounter 46731-2.55 [id number] 01/22 [facility] Outpatient Encounter [id number] [id number] 01/30 [facility] Outpatient Encounter [id number] [id number] 01/30 [facility] Outpatient Encounter [id number] [id number] 01/31 [facility] PRO PHONE CALL 21-30 MIN [id number] [id number] Diagnos is: ICD-10- CM Z65.9 Problem related to unspeci fied psychos ocial circums BASILIA Ricci I L 02/01 [facility] Outpatient Encounter [id number] [id number] 02/01 [facility] Outpatient Encounter [id number] [id number] 02/06 [facility] Outpatient Encounter [id number] [id number] 02/06 [facility] Outpatient Encounter [id number] [id number] 02/06 [facility] Outpatient Encounter [id number] [id number] 02/07 [facility] Outpatient Encounter [id number] [id number] 02/18 [facility] Outpatient Encounter [id number] [id number] 03/07 [facility] OFFICE O/P EST MOD 30 MIN 83203-6.55 [id number] Diagnos is: ICD-10- CM L72.3 Sebaceo us cyst BEN,SCO TT BRITANY 03/[address] [facility] TRIM NAIL(S) ANY NUMBER 62962-2.55 [id number] Diagnos is: ICD-10- CM Z71.89 Other specifi ed membership counselor LIN Kenny 04/10 [facility] SYNCH AUDIO-VIDE O EST LOW 20 [id number] [id number] 71 Diagnos is: ICD-10- CM E11.40 Type 2 diabete s mellitu s with diabeti c neuropa thy, unsp AB EROS IGAIL A 04/10 [facility] Outpatient Encounter [id number] [id number] 04/11 [facility] Outpatient Encounter [id number] [id number] 04/16 [facility] Outpatient Encounter [id number] [id number] 04/22 [facility] Outpatient Encounter [id number] [id number] 04/22 [facility] Outpatient Encounter [id number] [id number] 04/22 [facility] Outpatient Encounter [id number] [id number] 04/24 [facility] Outpatient Encounter [id number] [id number] 04/29 [facility] Outpatient Encounter [id number] [id number] AB EROS IGAIL A 05/15 [facility] SYNCH AUDIO-ONLY EST SF 10 [id number] [id number] Diagnos is: ICD-10- CM E11.40 Type 2 diabete s mellitu s with diabeti c neuropa thy, rheap AB EROS IGAIL A 05/15 [facility] Outpatient Encounter [id number] [id number] 06/05 [facility] Outpatient Encounter [id number] [id number] 06/05 [facility] Outpatient Encounter [id number] [id number] 06/05 [facility] PH1 ASSMT&MGMT NQHP 5-10 [id number] [id number] Diagnos is: ICD-10- CM Z65.9 Problem related to unspeci fied psychos ocial circums BASILIA Ricci 06/05 [facility] Outpatient Encounter [id number] 06/14 [facility] Outpatient Encounter [id number] 06/14 [facility] Outpatient Encounter [id number] 06/17 [facility] Outpatient Encounter [id number] 06/19 [facility] OFFICE O/P EST MOD 30 MIN [id number] Diagnos is: ICD-10- CM I25.9 Chronic ischemi c heart disease , unspeci BRISEIDA Berrios 06/19 [facility] Outpatient Encounter [id number] 06/21 [facility] Outpatient Encounter [id number] 06/21 [facility] Outpatient Encounter [id number] 06/26 [facility] Outpatient Encounter [id number] [id number] 07/01 [facility] TRIM NAIL(S) ANY NUMBER [id number] Diagnos is: ICD-10- CM Z71.89 Other specifi ed membership counselor ASHA Hernandez 07/03 [facility] OPC SYNCH AUDIO-VIDE O EST MOD 30 [id number] [id number] Diagnos is: ICD-10- CM E11.40 Type 2 diabete s mellitu s with diabeti c neuropa thy, unsp AB EROS IGAIL A 07/03 [facility] OPC [facility] ORTHOTIC MGMT&TRAIN G 1ST ENC [id number] [id number] Diagnos is: ICD-10- CM E11.40 Type 2 diabete s mellitu s with diabeti c neuropa thy, unsp PERJULIO C,BETTINA ANNAS C 07/03 [facility] Outpatient Encounter [id number] 07/16 [facility] Outpatient Encounter [id number] [id number] 07/16 [facility] Outpatient Encounter [id number] Diagnos is: ICD-10- CM E11.40 Type 2 diabete s mellitu s with diabeti c neuropa thy, unsp AB EROS IGAIL A 08/09 [facility] Outpatient Encounter [id number] 08/12 [facility] ORTHC/PROS TC MGMT SBSQ ENC [id number] [id number] Diagnos is: ICD-10- CM E11.40 Type 2 diabete s mellitu s with diabeti c neuropa thy, unsp PAMELA,BETTINA HOLAS C 08/14 [facility] IELD [facility] Outpatient Encounter [id number] [id number] 08/15 [facility] Outpatient Encounter [id number] 08/21 [facility] Outpatient Encounter [id number] 08/22 [facility] Outpatient Encounter [id number] 08/22 [facility] Outpatient Encounter [id number] 08/26 [facility] Outpatient Encounter [id number] 08/27 [facility] PH1 ASSMT&MGMT NQHP 11-20 [id number] Diagnos is: ICD-10- CM 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 elsewALYSSA Woods IESanta 08/27 [facility] Outpatient Encounter [id number] 08/31 [facility] Outpatient Encounter [id number] 08/31 [facility] SYNCH AUDIO-ONLY EST SF 10 [id number] Diagnos is: ICD-10- CM Z76.0 Encount er for issue of repeat prescri ption JOVAN GARCIA 08/31 [facility] Outpatient Encounter [id number] 09/05 [facility] Outpatient Encounter [id number] 09/05 [facility] CLINIC OFFICE O/P EST MOD 30 MIN [id number] Diagnos is: ICD-10- CM L72.3 Sebaceo us cyst BEN,SCO TT BRITANY 09/05 [facility] IELD RI CLINIC [facility] Outpatient Encounter [id number] 09/07 [facility] Social History Combined list of available smoking, tobacco, and other social history from Department of Defense and Veterans Affairs facilities. Social History Type Response Date Comment Sourc e Tobacco smoking status FLIS VA-TOBACCO USE EVERY DAY CIGARETTES 09/05/2024 [facility] C History of tobacco use RI-TOBACCO NEVER USED OTHER TYPE 09/05/2024 [facility] History of tobacco use VA-TOBACCO USER EVERY DAY 09/08/2023 [facility] History of tobacco use VA-TOBACCO USER EVERY DAY 08/23/2022 [facility] History of tobacco use VA-TOBACCO USER EVERY DAY 05/07/2021 [facility] History of tobacco use VA-TOBACCO USE WI 30 MIN OF WAKEUP 05/07/2020 [facility] History of tobacco use VA-TOBACCO USE REGIONAL OPERATIONS MANAGER NO 02/13/2019 [facility] History of tobacco use VA-TOBACCO USE 30 YEARS OR MORE 09/25/2017 [facility] History of tobacco use HF.TOBACCO COUNSELING REFUSED 09/20/2017 [facility] History of tobacco use TOBACCO CESSATION MEDS REFUSED 07/11/2017 [facility] History of tobacco use HF.TOBACCO COUNSELING REFUSED 05/05/2017 [facility] History of tobacco use HF.TOBACCO COUNSELING REFUSED 02/01/2017 [facility] History of tobacco use TOBACCO CESSATION MEDS REFUSED 08/29/2016 [facility] History of tobacco use HF.TOBACCO COUNSELING REFUSED 05/23/2016 [facility] History of tobacco use HF.TOBACCO COUNSELING REFUSED 02/29/2016 [facility] History of tobacco use TOBACCO CESSATION MEDS REFUSED 08/26/2015 [facility] History of tobacco use CURRENT TOBACCO USER 07/23/2014 [facility] History of tobacco use CURRENT TOBACCO USER 01/27/2014 [facility] History of tobacco use CURRENT TOBACCO USER 09/24/2012 [facility] History of tobacco use CURRENT TOBACCO USER 10/06/2011 [facility] History of tobacco use CURRENT TOBACCO USER 12/29/2010 [facility] History of tobacco use TOBACCO OFFERED [facility] 12/06/2010 [facility] History of tobacco use CURRENT TOBACCO USER 12/16/2009 [facility] History of tobacco use CURRENT TOBACCO USER 05/20/2009 [facility] History of tobacco use CURRENT TOBACCO USER 06/02/2008 [facility] History of tobacco use TOBACCO OFFERRED PT MEDS (PROVIDER) 04/25/2007 [facility] History of tobacco use CURRENT TOBACCO USER 11/20/2006 [facility] History of tobacco use CURRENT TOBACCO USER 06/28/2006 [facility] History [facility] tobacco use CURRENT TOBACCO USER 04/12/2006 [facility] History [facility] tobacco use CURRENT TOBACCO USER 08/11/2005 [facility] History of tobacco use CURRENT TOBACCO USER 01/12/2005 [facility] History of tobacco use CURRENT TOBACCO USER 12/15/2004 [facility] History of tobacco use CURRENT TOBACCO USER 03[facility]01/2004 [facility] History of tobacco use CURRENT TOBACCO USER 10/22/2003 [facility] History of tobacco use CURRENT TOBACCO USER 08/11/2003 [facility] History of tobacco use CURRENT TOBACCO USER 04/16/2003 [facility] History of tobacco use CURRENT TOBACCO USER 11/08/2002 [facility] History of tobacco use CURRENT TOBACCO USER 08/07/2002 [facility] History of tobacco use CURRENT TOBACCO USER 04/23/2002 [facility] History of tobacco use CURRENT TOBACCO USER 01/10/2002 [facility] History of tobacco use CURRENT TOBACCO USER 10/08/2001 [facility] History of tobacco use CURRENT TOBACCO USER 07/05/2001 [facility] History of tobacco use CURRENT TOBACCO USER 09/07/2000 [facility] History of tobacco use CURRENT SMOKER 10/26/1998 [facility] History of tobacco use CURRENT SMOKER 05/04/1998 [facility] Plan of Care List of future care activities from [facility] facilities. Additional future care activities may be listed in the Assessment and Plan section. Date/Time Care Activity Care Activity Detail Facili 09/10/2024 AMBULATORY - NONE AMBULATORY - NONE [facility] Advance Directives List of completed, amended, or rescinded Advance Directives on record at [facility] facilities. An actual copy of the Directive is not included. Date Advance Directive Provider Source 08/13/2013 ADVANCE DIRECTIVE MARITA SANDERS [facility] 10/13/1998 ADVANCE DIRECTIVE Jessica YOST [facility] 03/14/1994 ADVANCE DIRECTIVE YUMIKO HOLMAN [facility]
--- OUTSIDE RECORDS SUMMARY | 2024-09-07 11:15 | XMS_ITS | Encounter Summary ---
Author Name [facility] [place] [facility] [place] Address [address] [place] [address] Care Team Providers Care Field Artillery Cannoneer Name Role Phone DRE CONTRERAS Primary Care Provider Unavailabl e Selected Encounter This section includes the information on record at [place] for the Encounter. Date/Time Encounter Type Encounter Description Reason Pro vider Source Nov 14, 2023 11:59 AM Outpatient Encounter ADMIN PAT ACTIVTIES (JYOTINONCT) IHE Encounter Template Text not used by [place] Plan of Treatment: Future Appointments (+ 6 months) and Future Tests (+/- 45 days) The Plan of Treatment section includes future care activities for the patient from all [place] treatmentfacilities. This section includes future appointments and future orders which are active, pending or scheduled. Future Appointments This section includes appointments that were scheduled to occur 6 months from the date of the Encounter, up to a maximum of 20 appointments. The data comes from all [place] treatment facilities. Appointment Date/Time Appointment Type Appointme nt Facility Name Dec 18, 2023 11:30 AM AMBULATORY - NONE [facility] Jan 02, 2024 02:30 PM AMBULATORY - SURGERY [facility] Jan 02, 2024 02:35 PM AMBULATORY - NONE [facility] Jan 08, 2024 04:00 PM AMBULATORY - MEDICINE [facility] Jan 16, 2024 11:00 [facility] Jan 17, 2024 02:30 PM AMBULATORY - MEDICINE [facility] Jan 22, 2024 09:00 AM [facility]ORY [facility] NONE [facility] Jan 23, 2024 09:30 AM AMBULATORY - NONE [facility] Jan 31, 2024 08:00 AM AMBULATORY - NONE [facility] Feb 16, 2024 01:00 PM [facility]ORY - NONE [facility] Feb 19, 2024 02:15 AM AMBULATORY - NONE [facility] Feb 29, 2024 09:50 AM AMBULATORY - NONE [facility] Mar 07, 2024 10:00 AM AMBULATORY - MEDICINE [facility] Apr 10, 2024 11:30 [facility] Apr 10, 2024 11:35 AM AMBULATORY - NONE [facility] Lab Results: +/- 30 days of the encounter This section includes the Chemistry and Hematology Lab Results on record with [place] for the patient. Radiology Reports and Pathology Reports are provided separately, in subsequent sections. Lab Results This section contains the Chemistry/Hematology Results that were resulted 30 days before or 30 daysafter the date of the Encounter. Date/Time Source Result Type Result - Unit Interpretation Reference Range Specimen Type Comment Nov 14, 2023 12:12 PM [facility] A1C % BLOOD Specimen Type: BLOOD Comment: Normal: < or = 5.6% Pre-diabetes: 5.7-6.4% Diabetes Mellitus: > or = 6.5% Values obtained from A1C measurements can vary. For typical A1C assays, a reported value of 7.0 could actually be between 6.72 and 7.28 if measured by a reference method. A reported value of 9.0 could actually be between 8.73 and 9.27. Ref: [email or web address].[email or web address] [email or web address] Ordering Provider: DRE CONTRERAS Report Released Date/Time: Nov 03, 2023 02:25 PM Reporting Lab: [address] [address] Performing Lab: [address] [address] A1C % 6.3 H 0.0-5.6 Nov 14, 2023 12:12 PM [facility] COMPREHENSIVE PNL PLASMA Specime n Type: PLASMA Comment: eGFR was calculated using the CKD-EPI Creatinine (2020) equation. Ordering Provider: DRE CONTRERAS Report Released Date/Time: Nov 03, 2023 02:25 PM Reporting Lab: [address] [address] Performing Lab: [address] [address] ANION GAP 8 mmol/L 5-15 EGFR 63 mL/min > 60 GLUCOSE 80 mg/dL 70-99 POTASSIUM 4.4 mmol/L 3.5-4.7 SODIUM 139 mmol/L 136-145 BILI,TOTAL 0.3 mg/dL 0.2-1.2 PROTEIN, TOTL 7.2 g/dL 5.7-8.2 ALBUMIN 4.6 g/dL 3.4-5.0 ALKAL PHOS 39 U/L L 45-117 ALT 19 U/L 10-65 AST 16 U/L 10-37 UREA NITROGEN 22 mg/dL H 7-21 CALCIUM, TOTAL 9.6 mg/dL 8.7-10.4 CO2 24 mmol/L 21-32 CHLORIDE 107 mmol/L 98-109 CREATININE 1.24 mg/dL H 0.67-1.17 Nov 14, 2023 12:12 PM [facility] CBC W/DIFF BLOOD Specimen T ype: BLOOD No comment entered. Ordering Provider: DRE CONTRERAS Report Released Date/Time: Nov 03, 2023 02:25 PM Reporting Lab: [address] [address] Performing Lab: [address] [address] WBC 7.6 10*3/uL 4.0-11.0 RBC 4.04 10*6/uL L 4.20-5.70 HGB 12.4 g/dL L 13.0-17.0 HCT 37.7 L 40.0-51.0 MCV 93.3 fL 82-99 MCH 30.7 pg 27-34 MCHC 32.9 g/dL 31-37 MPV 9.2 fL 8-[address] 314 10*3/uL 130-400 RDW-CV 14.1 < 15.0 NEUTROPHILS% 57.1 LYMPHS% 28.8 MONOS% 7.2 EOS% 5.4 BASOS% 1.0 IG% 0.5 NEUTROPHILS# 4.4 10*3/uL 1.5-8.0 LYMPHS# 2.2 10*3/uL 1.0-4.0 MONOS# 0.6 10*3/uL 0.2-1.0 EOS# 0.4 10*3/uL 0-0.4 BASOS# 0.1 10*3/uL 0-0.2 IG# <0.1 10*3/uL 0-0.5 NRBC% 0.0 /100{WBCs} 0-0.2 NRBC# <0.01 10*3/uL 0-0.012 Advance Directives: All historical and current Section Date Range: From patient's date of to the date document was created. This section includes ALL of a patient's completed or amended [place] Advance and Rescinded Directives. The entries below indicate that a directive exists for the patient, but an actual copy is not included with this document. The data comes from all [place] facilities. Date Advance Directives Provider Source August 13, 2013 ADVANCE DIRECTIVE MARITA SANDERS [facility] Oct 13, 1998 ADVANCE DIRECTIVE Jessica YOST [facility] Mar 14, 1994 ADVANCE DIRECTIVE YUMIKO HOLMAN [facility] Encounter Notes: All associated encounter notes This section contains the clinical notes associated to the Encounter. Date/Time Encounter Note(s) Provider Source Nov 14, 2023 11:59 AM PHYSICIAN NOTE: LOCAL TITLE: PROVIDER/MEDICATION RECONCILIATION STANDARD TITLE: PHYSICIAN NOTE DATE OF NOTE: NOV 14, 2023@11:59:04 ENTRY DATE: NOV 14, 2023@11:59:05 AUTHOR: DRE CONTRERAS EXP COSIGNER: URGENCY: STATUS: COMPLETED DEPARTMENT OF [facility] [address], [place] [address] ORA DEL TORO NOV 14, 2023 [address] [place], [place] [address] Patient: ORA DEL TORO (: 1955) A list of reconciled medications was mailed or sent via secure messaging to the [place]/Caregiver. The following medication list was reviewed with the patient/caregiver: The /caregiver was counseled on new medications and/or medication changes. Potential risks, benefits, and alternative to medications prescribed were discussed with /caregiver who was given an opportunity to ask questions, which were answered to the best of my ability and seemingly to their satisfaction. [place]/caregiver was/were instructed to contact provider (means provided) with any concerns or questions. INCLUDED IN THIS LIST: Alphabetical list of active outpatient prescriptions dispensed from this [place] (local) and dispensed from another [place] or [place] facility (remote) as well as inpatient orders (local pending and active), local clinic medications, locally documented non-VA medications, and local prescriptions that have or been discontinued in the past 90 days. NOTE The display of VA prescriptions dispensed from another [place] or DoD facility (remote) is limited to active outpatient prescription entries matched to National Drug File at the originating site and may not include some items such as investigational drugs, compounds, etc. NOT INCLUDED IN THIS LIST: Medications self-entered by the patient into personal health records (i.e. [employer]) are not included in this list. Non-VA medications documented outside this [place], remote inpatient orders (regardless of status) and remote clinic medications are NOT included in this list. The patient and provider must always discuss medications the patient is taking, regardless of where the medication was dispensed or obtained. Patient safety alert: Medications and allergies from [facility] facilities may be incomplete. Reference [facility] for full list. Allergies/ADRs Facility Allergen (Reaction) -------- [facility] ATORVASTATIN (MUSCLE PAIN) [facility] CILOSTAZOL (HYPOTENSION) [facility] FERROUS SULFATE (ABDOMINAL PAIN) [facility] ROSUVASTATIN (INCREASED SERUM ALT (SGPT)) [facility] SIMVASTATIN (-) [facility] SPIRONOLACTONE (GYNECOMASTIA) [facility] FERROUS SULFATE (INDIGESTION) [facility] ROSUVASTATIN (LIVER ENZYMES ABNORMAL) [facility] SIMVASTATIN (MUSCLE PAIN) Med Reconciliation Patient is taking the following medications: ACETAMINOPHEN 500MG TAB (OUTPT Status: ACTIVE) Taketwotabletsbymouthtwiceaday forpainorfever-donotexceed 4000mgofacetaminophen(apap)per dayfromanyandallsources Usually Taken for: Pain ALBUTEROL 90MCG (CFC-F) 200D ORAL INHL (OUTPT Status: ACTIVE) Inhale 2 puffs by mouth four times a day as needed for breathing Usually Taken for: Breathing ALBUTEROL SULF 0.083% INHL 3ML (OUTPT Status: ACTIVE) Inhale 3 ml via nebulizer by oral nebulization four times a day as needed Usually Taken for: Breathing ALUMINUM HYDROXIDE GEL 320MG/5ML SUSP (OUTPT Status: ACTIVE) Take 15 ml by mouth four times a day as needed for stomach acid Usually Taken for: Skin AMIODARONE HCL (PACERONE) 200MG TAB (OUTPT Status: ACTIVE) Take one tablet by mouth dailyfor heart Usually Taken for: Heart ASPIRIN 81MG CHEW TAB (OUTPT Status: ACTIVE/SUSP) Chew one tablet by mouth every day for blood thinner Usually Taken for: Blood thinner CETIRIZINE HCL 10MG TAB (OUTPT Status: ACTIVE) Take one tablet by mouth every day for allergies for fluid behind left ear. Usually Taken for: Allergies COENZYME Q10 CAP/TAB (NON-VA Status: ACTIVE) One capsule mouth Usually Taken for: Supplement CYCLOBENZAPRINE HCL 10MG TAB (OUTPT Status: ACTIVE) Take one tablet by mouth three times a day as needed Usually Taken for: Muscle relaxer DEXTRAN 70/GLYCER 0.2%/HYPROMEL 0.3% OPH (OUTPT Status: ) Instill two drops both eyes three times a day as needed for the eye Usually Taken for: Eyes DOCUSATE NA 100MG CAP (OUTPT Status: PENDING) Take one capsule by mouth daily for stool softener Usually Taken for: Constipation DOXAZOSIN MESYLATE 4MG TAB (OUTPT Status: ACTIVE) Take one tablet by mouth at bedtime for prostate dose reduction Usually Taken for: Prostate/Blood pressure EZETIMIBE 10MG TAB (OUTPT Status: ACTIVE/SUSP) Take one tablet by mouth every day for lowering cholesterol Usually Taken for: Cholesterol FISH OIL 1000MG (500MG DHA/EPA) CAP,ORAL (NON-Critical access hospital: [facility] Status: ACTIVE) 1000mg by mouth once a day Usually Taken for: Cholesterol FUROSEMIDE 40MG TAB (OUTPT Status: ACTIVE) Take one tablet by mouth dailyfor blood pressure/water pill Usually Taken for: Blood pressure/Water pill GABAPENTIN 600MG TAB (OUTPT Status: ACTIVE/SUSP) Take one tablet by mouth twice a day for pain/neuropathy Usually Taken for: Pain/Neuropathy LIDOCAINE 5% PATCH (OUTPT Status: ACTIVE) Ohy1kfnirzpcexgeginpwgd,hairle ssareaoncedailyasneededpresspa tc sznymsycllvbbi69-81gzhncdozusy atactivatetheadhesive. remove patch(es) after 12 hours and leave off for 12 hours. Usually Taken for: Pain LISINOPRIL 5MG TAB (OUTPT Status: ACTIVE) Take one tablet by mouth daily for blood pressure Usually Taken for: Blood pressure MAGNESIUM OXIDE 400MG TAB (OUTPT Status: ACTIVE) Take one tablet by mouth daily with food Usually Taken for: Supplement MAGNESIUM OXIDE 400MG TAB (OUTPT Status: PENDING) Take one tablet by mouth daily with food for magnesium replacement Usually Taken for: Supplement MENTHOL/M-SALICYLATE 10-15% TOP CREAM (OUTPT Status: ACTIVE) Apply small amount topically as needed Usually Taken for: Pain METOPROLOL SUCCINATE 200MG SA TAB (OUTPT Status: PENDING) Takeone-halftabletbymouthevery dayforheart/bloodpressureforbl ood pressure Usually Taken for: Blood pressure/Heart METOPROLOL SUCCINATE 50MG SA TAB (OUTPT Status: ACTIVE) Take one tablet by mouth every day Usually Taken for: Blood pressure/Heart MOMETASONE 200MCG/ACTUAT 120D ORAL INHL (OUTPT Status: ACTIVE) Inhale two puffs by mouth twice a day rinse mouth after each use Usually Taken for: Breathing MONTELUKAST NA 10MG TAB (OUTPT Status: PENDING) Take one tablet by mouth at bedtime Usually Taken for: Breathing MULTIVITAMIN CAP/TAB (OUTPT Status: ACTIVE) Take 1 cap/tab by mouth daily supplement Usually Taken for: Supplement NITROGLYCERIN (EQ-NITROSTAT) 0.4MG SL TB (OUTPT Status: ) Dissolveonetabletunderthetongu urekhn3kkiajzklpresxucxyaiddqq pain.ifnoimprovementafterthree dosesgotonearest emergency room. discard opened bottle after 6 months Usually Taken for: Heart OLODATEROL/TIOTROP 2.5MCG/ACTUAT 60D INH (OUTPT Status: ACTIVE) Qqqtcd4skqleocbvkoaafkavmtoblx rtusingafterfinishingthetreleg y samplesperprovider Usually Taken for: Breathing OMEPRAZOLE 40MG EC CAP (OUTPT Status: ACTIVE) Take one capsule by mouth every morning 30 minutes before breakfast Usually Taken for: Stomach PRAVASTATIN NA 20MG TAB (OUTPT Status: ACTIVE) Takeone-halftabletbymouthsunda ys,mondays,wednesdaysandmonday sfor cholesterol.callyourproviderif youhavemusclepain, tenderness or weakness Usually Taken for: Cholesterol TERBINAFINE HCL 250MG TAB (OUTPT Status: ACTIVE) Take one tablet by mouth daily Usually Taken for: Infection TOLNAFTATE 1% TOP PWD (OUTPT Status: ACTIVE) Apply sufficient quantity topically daily Usually Taken for: Infection VITAMIN B COMPLEX CAP (OUTPT Status: ACTIVE) Take one capsule by mouth daily Usually Taken for: Supplement VITAMIN B COMPLEX CAP,ORAL (NON-Critical access hospital: [facility] Status: ACTIVE) 1 capsule by mouth every morning Usually Taken for: Supplement Patient is NOT taking the following medications: DOCUSATE NA 100MG CAP (OUTPT Status: ACTIVE) Take one capsule by mouth daily (Duplicate) Usually Taken for: Constipation METOPROLOL SUCCINATE 200MG SA TAB (OUTPT Status: ACTIVE) Takeone-halftabletbymouthevery dayforheart/bloodpressure (Duplicate) Usually Taken for: Blood pressure/Heart SUPPLIES: ACCU-CHEK GUIDE (GLUCOSE) TEST STRIP (OUTPT) Use one strip three times weekly for blood glucose monitoring (store in original bottle with lid on at all times) ALCOHOL PREP PAD (OUTPT) Use pad to supply as directed /loli/ Dre Contreras M.D. M.D. Date printed: NOV 14, 2023 12:17 [place] DRE CONTRERAS [facility]
--- OUTSIDE RECORDS SUMMARY | 2024-09-07 11:15 | XMS_ITS | Encounter Summary ---
Author Name [facility] Organization [facility] Address [address] [place] [address] Care Team Providers Care Threat Monitoring Analyst Name Role Phone DANNY CONTRERAS Primary Care Provider Unavailabl e Selected Encounter This section includes the information on record at [place] for the Encounter. Date/Time Encounter Type Encounter Description Reason Provider Source May 15, 2024 11:21 AM Outpatient Encounter PODIATRY MELINA COONEY [facility] Encounter Template Text not used by [place] Plan of Treatment: Future Appointments (+ 6 months) and Future Tests (+/- 45 days) The Plan of Treatment section includes future care activities for the patient from all [place] treatmentfacilities. This section includes future appointments and future orders which are active, pending or scheduled. Future Appointments This section includes appointments that were scheduled to occur 6 months from the date of the Encounter, up to a maximum of 20 appointments. The data comes from all [place] treatment facilities. Appointment Date/Time Appointment Type Appointme nt Facility Name Jun 17, 2024 10:00 AM AMBULATORY - NONE [facility] Jun 19, 2024 01:30 PM AMBULATORY - MEDICINE [facility] Jul 03, 2024 09:30 AM AMBULATORY - SURGERY [facility] Jul 03, 2024 09:35 AM AMBULATORY - NONE [facility] Jul 03, 2024 11:00 AM AMBULATORY - NONE [facility] Jul 16, 2024 10:15 AM AMBULATORY - NONE [facility] August 14, 2024 10:30 AM AMBULATORY - NONE [facility] August 22, 2024 08:30 AM AMBULATORY - NONE [facility] Aug 27, 2024 09:10 AM AMBULATORY - NONE [facility] Aug 27, 2024 01:00 PM AMBULATORY - REHAB [facility]IC[facility] Sep 05, 2024 09:30 AM AMBULATORY - MEDICINE [facility] Sep 10, 2024 09:45 AM AMBULATORY - NONE [facility] Oct 23, 2024 10:00 AM AMBULATORY - SURGERY [facility] Oct 23, 2024 10:05 AM AMBULATORY - NONE [facility] Active, Pending, and Scheduled Orders This section includes a listing of several types of active, pending, and scheduled orders, including clinic medications orders, diagnostic test orders, procedure orders and consult orders; where the start date of the order is 45 days before the date of the Encounter or 45 days after the date of theEncounter. The data comes from all [place] treatment facilities. Test Date/Time Test Type Test Details Facility Name Jun 20, 2024 07:58 AM Consult Order [facility]-ENDOCRINOLOGY Cons [employer] Manager's Choice [facility] Advance Directives: All historical and current Section Date Range: From patient's date of to the date document was created. This section includes ALL of a patient's completed or amended [place] Advance and Rescinded Directives. The entries below indicate that a directive exists for the patient, but an actual copy is not included with this document. The data comes from all [place] facilities. Date Advance Directives Provider Source August 13, 2013 ADVANCE DIRECTIVE MARITA SANDERS [facility] Oct 13, 1998 ADVANCE DIRECTIVE Jessica YOST [facility] Mar 14, 1994 ADVANCE DIRECTIVE YUMIKO HOLMAN [facility]
--- OUTSIDE RECORDS SUMMARY | 2024-09-07 11:16 | XMS_ITS | Continuity of Care Document ---
Author Organization [facility], [place] Address [address] [place] [address] Phone Care Team Providers Care Game Programer Name Role Phone Nelson Ness MD Unavailable Unavailable Allergies, Adverse Reactions, Alerts Substance Reaction Status Criticality cilostazol Unknown(moderate) Active No Informa tion [facility]-FCM-EwP Reductase Inhibitors Acti ve No Information Medications Medication Instructions Dosage Effective Dates (start - stop) Status Comments Eyescrub topical pads scrub eyelids 30 second on each side and then rise afterwards daily - Active Systane Complete 0.6 % eye drops 1 drop 3-4 times in both eyes daily - Active Aspirin Low Dose 81 [...] route every day 8 MG - Active pantoprazole 40 mg tablet,delayed release take 1 tablet by oral route every day 40 MG - Active spironolactone 25 mg tablet take 1 tablet by oral route every day 25 MG - Active Tylophen 500 mg capsule take 2 capsule b y oral route every 6 hours as needed - Active multivitamin tablet take 1 tablet by oral route every day 1 tablet - Active amiodarone 200 mg tablet take 1 tablet by oral route every day 200 MG - Active Ventolin HFA 90 mcg/actuation aerosol inhaler inhale 2 puff by inhalation route every 4 - 6 hours as needed - Active nitroglycerin 0.4 mg/hr transdermal 24 hour patch apply 1 patch by transdermal route every day remove at night for 10-12 hours 1.00 patch - Active Symbicort 80 mcg-4.5 mcg/actuation HFA aerosol inhaler inhale 2 puff by inhalation route 2 times every day in the morning and evening 2.00 puff - Active ferrous sulfate 325 mg (65 mg iron) tablet take 1 tablet by oral route every day 325 MG - Active cyclobenzaprine 10 mg tablet take 1 tablet by oral route every day 10 MG - Active Lamisil AT 1 % topical gel take 1 tablet by oral route every day - Active Procedures Procedure Date EYE EXAM [...] Diagnoses Date Provider Providers Copied on Encounter [facility], [facility], [address] [place], [place], [id number] , [place] tel:[phone] [facility] blurry vision/Dizzi ness (chief complaint) Type 2 diabetes mellitus without complicationsAge -related nuclear cataract, bilateral May- 5 Grover Damon. [address] [place] [address], [id number], [place]. tel:[phone] Referring Provider: Nelson Rodriguez, [address] [place] [address], [id number]. tel:[phone] [facility], [address] [place] [address], [id number] , tel:[phone] [facility] diabetic eye exam (chief complaint) Type 2 diabetes mellitus without complicationsAge -related nuclear cataract, bilateralHyperme tropia, bilateralRegular astigmatism, bilateralPresbyo salazar 4 Grover Damon. [address] [place] [address], [id number], [place]. tel:[phone] Referring Provider: Nelson Grover Jennifer, [address] [place] [address], [id number]. tel:[phone] [facility], [address] [place] [address], [id number] , tel:[phone] [facility] diabetic eye exam (chief complaint) Type 2 diabetes mellitus without complicationsAge -related nuclear cataract, bilateralDry eye syndrome of bilateral lacrimal glandsHypermetro salazar, bilateralRegular astigmatism, bilateralPresbyo piaGlare sensitivity 3 Estrella Kramer. [address], [place], [place], [id number], [place]. tel:[phone] Referring Provider: Nia Mata, [address], [place], [address]. tel:[phone] [facility], [address] [place] [address], [id number] , [place] tel:[phone] [facility] Blurry Vision (chief complaint) Hypermetropia, bilateralRegular astigmatism, bilateralPresbyo piaType 2 diabetes mellitus without complicationsAge -related nuclear cataract, bilateralDry eye syndrome of bilateral lacrimal glandsSquamous blepharitis right eye, upper and lower eyelidsSquamous blepharitis left eye, upper and lower eyelidsConjuncti mitzi concretions, left eyeOther giant cell arteritis 2 Estrella Kramer. [address], [place], [place], [id number], [place]. tel:[phone] Referring Provider: Nia Mata, [address], [place], [address]. tel:[phone] [facility], [address] [place] [address], [id number] , [place] tel: [phone] [facility] Diabetes Examination (chief complaint)de creased vision (chief complaint)Di abetes Examination (chief complaint)de creased vision (chief complaint) Type 2 diabetes mellitus without complicationsHyp ermetropia, bilateralRegular astigmatism, bilateralPresbyo piaAge-related nuclear cataract, bilateral Sep-0 3-202 1 Oberreiter Nia. [address] , [place], [place], [id number], [place]. tel:[phone] Referring Provider: Aleena Renee [address], [address]. tel:[phone] [facility], [address] [place] [address], [id number] , [place] tel:[phone] [facility] Diabetes Examination (chief complaint)de creased vision (chief complaint)Di abetes Examination (chief complaint)de creased vision (chief complaint) Age-related nuclear cataract, bilateralType 2 diabetes mellitus without complicationsPre sbyopiaRegular astigmatism, bilateralHyperme tropia, bilateral Sep-0 2-202 0 Oberreitlali Kramer. [address] , [place], [place], [id number], [place]. tel:[phone] Referring Provider: Marcello Trinidad [place] [address] [address] [place], [address]. tel:[phone] [facility], [address] [place] [address], [id number] , [place] tel:[phone] [facility] Diabetes Examination (chief complaint)sl ightly blurred vision (chief complaint)Di abetes Examination (chief complaint)sl ightly blurred vision (chief complaint) PrediabetesHyper metropia, bilateralRegular astigmatism, bilateralPresbyo piaAge-related nuclear cataract, bilateral Sep-0 9 Estrella Kramer. [address], [place], [place], [id number], [place]. tel:[phone] Family History Family Member Type Diagnosis Age At Onset Maternal grandfather Problem (finding) Diabetes mellit us Problem (finding) No family hist ory of Macular degeneration Father Problem (finding) Diabetes mellitus Problem (finding) No family history of Gl [place] Mother Problem (finding) hypertension Father Problem (finding) hypertension Mother Problem (finding) Diabetes mellitus Problem (finding) No family history of Ca taracts Payers Payer name Insurance type Covered green party ID Authoriza tilance(s) [place] [employer] [place] [id number] Social History Type Description Quantity Date [...] [facility] [place] The 67 year ol [...] are not stable. Please send letter to [facility]. Pt not sure of [...] in office today being referred by [facility] for [facility] eye exam. Pt is Type II Diabetic treating by diet and exercise for approximately 10 years. Pt states he believes he BS are well controlled. Pt denies checking his BS daily. Please send letter to Denise Elmore NP at [facility] in [facility]. slightly blurred vision NOTE: Pt [...]
--- OUTSIDE RECORDS SUMMARY | 2024-09-07 11:16 | XMS_ITS | Encounter Summary ---
Author Name [facility] ([place]) Organization [facility] ([place]) Address [address] [place] [address] Care Team Providers Care Pit Supervisor Name Role Phone DRE CONTRERAS Primary Care Provider Unavailabl e Selected Encounter This section includes the information on record at [place] for the Encounter. Date/Time Encounter Type Encounter Description Reason Provider Source Nov 14, 2023 11:30 AM OFFICE O/P EST MOD 30 MIN PRIMARY CARE/MEDICINE ICD-10-CM M65.331 Trigger finger, right middle finger DRE CONTRERAS Manjinder Encounter Template Text not used by [place] Assessments - Encounter Diagnoses This section includes the primary and secondary diagnoses documented for the Encounter. Date/Time Primary/Secondary Diagnosis Diagnosis Name Provider Source Nov 14, 2023 12:11 PM PRIMARY Trigger finger, right middle finger DRE CONTRERAS [facility] Nov 14, 2023 12:11 PM SECONDARY Benign prostatic hyperplasia without lower urinry tract symp [facility] Nov 14, 2023 12:11 PM SECONDARY Chronic ischemic heart disease, unspecified [facility] Nov 14, 2023 12:11 PM SECONDARY Chronic kidney disease, unspecified [facility] Nov 14, 2023 12:11 PM SECONDARY Chronic obstructive pulmonary disease, unspecified [facility] Nov 14, 2023 12:11 PM SECONDARY Essential (primary) hypertension [facility] Nov 14, 2023 12:11 PM SECONDARY Gastro-esophageal reflux disease without esophagitis [facility] Nov 14, 2023 12:11 PM SECONDARY Hyperlipidemia, unspecified [facility] Nov 14, 2023 12:11 PM SECONDARY Iron deficiency anemia, unspecified [facility] Nov 14, 2023 12:11 PM SECONDARY Polyp of colon [facility] Nov 14, 2023 12:11 PM SECONDARY Re-entry ventricular arrhythmia [facility] Nov 14, 2023 12:11 PM SECONDARY Sleep related leg cramps [facility] Nov 14, 2023 12:11 PM SECONDARY Type 2 diabetes mellitus without complications [facility] Nov 14, 2023 12:11 PM SECONDARY 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 This section includes future appointments and future orders which are active, pending or scheduled. Future Appointments This section includes appointments that were scheduled to occur 6 months from the date of the Encounter, up to a maximum of 20 appointments. The data comes from all [place] treatment [facility]. Appointment Date/Time Appointment Type Appointme nt Facility Name Dec 18, 2023 11:30 AM AMBULATORY - NONE [facility] Jan 02, 2024 02:30 PM AMBULATORY - SURGERY [facility] Jan 02, 2024 02:35 PM AMBULATORY - NONE [facility] Jan 08, 2024 04:00 PM AMBULATORY - MEDICINE [facility] Jan 16, 2024 11:00 AM AMBULATORY - MEDICINE [facility] Jan 17, 2024 02:30 PM [facility] Jan 22, 2024 09:00 AM AMBULATORY - NONE [facility] Jan 23, 2024 09:30 AM AMBULATORY - NONE [facility] Jan 31, 2024 08:00 AM AMBULATORY - NONE [facility] Feb 16, 2024 01:00 PM AMBULATORY - NONE [facility] Feb 19, 2024 02:15 AM AMBULATORY - NONE [facility] Feb 29, 2024 09:50 AM AMBULATORY - NONE [facility] Mar 07, 2024 10:00 AM AMBULATORY - MEDICINE [facility] Apr 10, 2024 11:30 AM AMBULATORY - SURGERY [facility] Apr 10, 2024 11:35 AM AMBULATORY - NONE [facility] Lab Results: +/- 30 days of the encounter This section includes the Chemistry and Hematology Lab Results on record with [place] for the patient. Radiology Reports and Pathology Reports are provided separately, in subsequent sections. Lab Results This section contains the Chemistry/Hematology Results that were resulted 30 days before or 30 daysafter the date of the Encounter. Date/Time Source Result Type Result - Unit Interpretation Reference Range Specimen Type Comment Nov 14, 2023 12:12 PM [facility] A1C % BLOOD Specimen Type: BLOOD Comment: [...] Nov 03, 2023 02:25 PM Reporting Lab: [address] [id number] Performing Lab: [address] [address] A1C % 6.3 H 0.0-5.6 Nov 14, 2023 12:12 PM [facility] COMPREHENSIVE PNL PLASMA Specime n Type: PLASMA Comment: eGFR was calculated using the CKD-EPI Creatinine (2020) equation. Ordering Provider: DRE CONTRERAS Report Released Date/Time: Nov 03, 2023 02:25 PM Reporting Lab: [address] [address] Performing Lab: [address] [address] ANION GAP 8 mmol/L 5-15 EGFR 63 [...] H 0.67-1.17 Nov 14, 2023 12:12 PM [facility] CBC W/DIFF BLOOD Specimen T ype: BLOOD No comment entered. Ordering Provider: DRE CONTRERAS Report Released Date/Time: Nov 03, 2023 02:25 PM Reporting Lab: [address] [id number] Performing Lab: [address] [address] WBC 7.6 10*3/uL 4.0-11.0 RBC 4.04 10*6/uL [...] 0.0 /100{WBCs} 0-0.2 NRBC# <0.01 10*3/uL 0-0.012 Vital Signs: All taken on the encounter date This section contains inpatient and outpatient Vital Signs collected on the date of the Encounter. Date/Time Temperature Pulse Blood Pressure Respiratory Rate SP02 Pain Height Weight Body Mass Index Source Nov 14, 2023 11:20 AM 98.1 60 115/48 16 94 3 245.3 37 [facility] Social History: Smoking Status (Most current) and Tobacco Use (All prior to encounter date) This section includes the most current, and the historical, smoking and tobacco- related health factors from the [place] facility where the Encounter took place. Current Smoking Status This section includes the most current smoking, or tobacco-related health factor, from the [place] facility where the Encounter took place. Date/Time Current Smoking Status Comment Facil [facility] Sep 08, 2023 10:30 AM VA-TOBACCO USER EVERY DAY [facility] Tobacco Use History This section includes a history of the smoking, or tobacco-related health factors, that were collected on or before the date of the Encounter. The data comes from the [place] facility where the Encounter took place. 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 [facility] Sep 08, 2023 10:30 AM VA-TOBACCO USE MED [facility] [place] Sep 08, 2023 10:30 AM VA-TOBACCO USE WI 30 MIN OF [facility] Sep 08, 2023 10:30 AM VA-TOBACCO USER EVERY DAY [facility] August 23, 2022 08:30 AM VA-TOBACCO USE 30 YEARS OR MORE [facility] August 23, 2022 08:30 AM VA-TOBACCO USE ADVICE [facility] August 23, 2022 08:30 AM VA-TOBACCO USE 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 ASSISTANT FRONT DESK NO [facility] August 23, 2022 08:30 AM VA-TOBACCO USE MED [facility] August 23, 2022 08:30 AM VA-TOBACCO USE [place] 30 MIN OF [place] [facility] August 23, 2022 08:30 AM VA-TOBACCO USER EVERY DAY [facility] May 07, 2021 10:00 AM VA-TOBACCO USE 30 YEARS OR MORE [facility] May 07, 2021 10:00 AM VA-TOBACCO USE ADVICE [facility] May 07, 2021 10:00 AM VA-TOBACCO USE 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 FRONT DESK NO [facility] May 07, 2021 10:00 AM VA-TOBACCO USE MED NO [facility] May 07, 2021 10:00 AM VA-TOBACCO USE WI 30 MIN OF [facility] May 07, 2021 10:00 AM VA-TOBACCO USER EVERY DAY [facility] May 07, 2020 01:00 PM VA-TOBACCO USE 30 YEARS OR MORE [facility] May 07, 2020 01:00 PM VA-TOBACCO USE ADVICE [facility] May 07, 2020 01:00 PM VA-TOBACCO USE 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 ASSISTANT FRONT DESK NO [facility] May 07, 2020 01:00 PM VA-TOBACCO USE MED NO [facility] May 07, 2020 01:00 PM VA-TOBACCO USE WI 30 MIN OF [facility] May 07, 2020 01:00 PM VA-TOBACCO USER EVERY DAY [facility] Feb 13, 2019 11:11 AM VA-TOBACCO USE 30 YEARS OR MORE [facility] Feb 13, 2019 11:11 AM VA-TOBACCO USE ADVICE [facility] Feb 13, 2019 11:11 AM VA-TOBACCO USE 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 ASSISTANT FRONT DESK NO [facility] Feb 13, 2019 11:11 AM VA-TOBACCO USE MED [facility] Feb 13, 2019 11:11 AM VA-TOBACCO USE WI 30 MIN OF [facility] Feb 13, 2019 11:11 AM VA-TOBACCO USER EVERY DAY [facility] Sep 25, 2017 04:04 PM VA-TOBACCO USE 30 YEARS OR MORE [facility] Sep 25, 2017 04:04 PM VA-TOBACCO USE ADVICE [facility] Sep 25, 2017 04:04 PM VA-TOBACCO USE 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 ASSISTANT FRONT DESK NO [facility] Sep 25, 2017 04:04 PM VA-TOBACCO USE MED NO [facility] Sep 25, 2017 04:04 PM VA-TOBACCO USE WI 30 MIN OF [facility] Sep 25, 2017 04:04 PM VA-TOBACCO USER EVERY DAY [facility] Sep 20, 2017 12:35 PM HF.TOBACCO COUNSELING REFUSED [facility] Jul 11, 2017 01:33 PM HF.TOBACCO COUNSELING REFUSED [facility] Jul 11, 2017 01:33 PM TOBACCO CESSATION MEDS REFUSED [facility] Jul 11, 2017 01:33 PM TOBACCO CESSATION REFERRAL REFUSED [facility] Jul 11, 2017 01:33 PM TOBACCO OFFERRED STOP SMOKING CLINIC [facility] May 05, 2017 08:20 AM HF.TOBACCO COUNSELING REFUSED [facility] Feb 01, 2017 01:03 PM HF.TOBACCO COUNSELING REFUSED [facility] Aug 29, 2016 08:43 AM HF.TOBACCO COUNSELING REFUSED 2 pk/day declined ( does not wnat to quit) [facility] Aug 29, 2016 08:43 AM TOBACCO CESSATION MEDS REFUSED [facility] Aug 29, 2016 08:43 AM TOBACCO CESSATION REFERRAL REFUSED [facility] Aug 29, 2016 08:43 AM TOBACCO OFFERRED STOP SMOKING CLINIC [facility] May 23, 2016 09:59 AM HF.TOBACCO COUNSELING REFUSED [facility] Feb 29, 2016 09:30 AM HF.TOBACCO COUNSELING REFUSED [facility] Aug 26, 2015 06:35 AM HF.TOBACCO COUNSELING REFUSED [facility] Aug 26, 2015 06:35 AM TOBACCO CESSATION MEDS REFUSED [facility] Aug 26, 2015 06:35 AM TOBACCO CESSATION REFERRAL REFUSED [facility] Aug 26, 2015 06:35 AM TOBACCO OFFERRED PT MEDS (PROVIDER) [facility] Aug 26, 2015 06:35 AM TOBACCO OFFERRED STOP SMOKING [facility] Advance Directives: All historical and current Section Date Range: From patient's date of to the date document was created. This section includes ALL of a patient's completed or amended [place] Advance and Rescinded Directives. The entries below indicate that a directive exists for the patient, but an actual copy is not included with this document. The data comes from all [place] facilities. Date Advance Directives Provider Source August 13, 2013 ADVANCE DIRECTIVE MARITA SANDERS [facility] Oct 13, 1998 ADVANCE DIRECTIVE Jessica YOST [facility] Mar 14, 1994 ADVANCE DIRECTIVE YUMIKO HOLMAN [facility] Encounter Notes: All associated encounter notes This section contains the clinical notes associated to the Encounter. Date/Time Encounter Note(s) Provider Source Nov 14, 2023 11:44 AM H & P NOTE: LOCAL TITLE: HISTORY & PHYSICAL STANDARD TITLE: H & P NOTE DATE OF NOTE: NOV 14, 2023@11:44 ENTRY DATE: NOV 14, 2023@11:44:37 AUTHOR: DRE CONTRERAS EXP COSIGNER: URGENCY: STATUS: COMPLETED CHIEF COMPLAINT: Preop H&P HISTORY OF PRESENT ILLNESS: Nursing notes reviewed. This is a 68 year-old veterean being seen today for above reason. Pre-procedure Dx: right 3rd trigger finger Date of surgery: 11/22/23 Surgeon: Dr. Foster Proposed surgery: trigger finger release Proposed anesthesia: genreral Fax number for H&P: [phone] Here today for preop H&P for right trigger finger surgery. Had CxR already that was ok. To get EKG and labs today. right trigger finger - Has been a problem for years. has gotten worse. To get fixed with surgery. leg cramps - on MgOx. Still taking med. CKD - previous creat was 1.31 with eGFR 59. To get labs today. aDVised to push fluids and avoid NSAIDS. COPD - on mometazone, abluterol, oldaterol/tiotropium. Using ihhalers on a regular basis. Breathing is stable. ventricular arrhythmia - on amiodarone and metoprolol. EKG shows paced rhythm. Take amiodarine on am of sugery with small sip of water. CAD, CHf - lasat EF 29%. ON ASA, BB, lasix, lisinopril. Seen cardilogist. NO chest pain. NO worsennging SOB. NO LE edema, orthopnea, PND. BPH - on doxazosin. Med doess help. HTN - on lisinopril, metoporlool, lasix, doxazosin. BP is good today. ADvsied to take lisinopril and metoprolol on am of surgery with small sip of water. GERD - on omeprazole. NO GI symtoms on med. hyperlipidemia - on pravstatin and zetia. Will check labs at next appt. DM2- diet only. PRevious Hba1c was 6.4%. To get labs today. ADvised to cut back on carbs. anemai- previous H/H was 12.5/38.5. To get labs today. colno polyp- last colonscopy was 12/15 with f/up in 3 years. Vet declined colonscopy. PAST MEDICAL HISTORY: Medications: As listed in chart and reviewed (see attached). Allergies: ROSUVASTATIN, SIMVASTATIN, FERROUS SULFATE, SPIRONOLACTONE, ATORVASTATIN CILOSTAZOL Problem List: As listed in chart and reviewed (see attached). 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 heart cath many with stents 2. pacamaker 3. PVD sugery SOCIAL HISTORY: Habits: [y ] Tabacco [y ] Alcohol use [n ] Illicit drug use FAMILY MEDICAL HISTORY: [y ] Heart disease [y ] Diabetes [y ] Cancer [n ] Problems with general anesthesia [ ] Other: REVIEW OF SYSTEMS: General: No fever, chills, weight loss, or anorexia. No fatigue. HEENT: No visual or hearing changes. Cardiovascular: No chest pain, palptiations, edema. Respiratory: No cough, dyspnea, or hemoptysis. Gastrointestinal: No abdominal pain, nausea/vomiting, diarrhea, or hematochezia, or melena. Genitalurinary: No dysuria, urgency, frequency, hematuria. Musculoskeletal: No acute muscle or joint pain. Skin: No rash or skin lesions. Neurologic: No headache, dizziness, numbness, tingling, weakness. Psychoogical: No depressive or anxiety symptoms. No suicidal ideation. OBJECTIVE: Vital signs: DATE/TIME TEMP PULSE RESP BP PAIN WT (LB) P OX 11/14/23 @ 1120 98.1 60 16 115/48 3 245.3 94 Physical Exam: General: NAD. Pleasant and cooperative. . Heart: RRR. No murmurs, gallops, rubs. Lungs: CTAB without crackles, rhonchi, or wheeze. Abdomen: Pos bowel sounds, soft, non-distended. No tenderness, guarding, rebound. No HSM. : deferred. Extremities: No clubbing, cyanosis, edema. right 3rd trigger finger; pain on ROM testing Musculoskeltal: No gait abnormality. No synovitis. Neurlogical: Awake, alert, oriented x3. Non-focal. Psychological: Affect full and mood congruent. AAOx3. EKG: atrail paced, septal infacrt (old), lateral infarct (old) Labs: pending ASSESSMENT/PLAN: Surgery risk: [x ] Low [ ] intermediate [ ] high Patient risk: CAD/CHF, ventricular arrhythmia, CKD, COPD DVT prophylaxis: Y/N [ n ] Antibiotic prophylaxis: as per surgeon Beta blockers: [ ] not indicated [x ] home medication; continue Please note that I do not have hospital priviledges and if internal medicine assistance is needed, please contact the Hospitalist service. 1. right trigger finger - EKG as expected. Labs pending. Assuming labs are ok, vet is cleared for planned surgery with no addtional work up. To take metoporlol, lisinopril, and amiodarone on am of surgery with small sip of water. 2. leg cramps - med does help, continue 3. chronic kidney diseae= labs pending, Push fluids, avoid NSAIDS.. 4. chronic obstrtuctuive pulmonary diseae - breathing is stable 5. ventricular arrhythmia - continue meds 6. coronary arrtery disease, congestive heart fialure - clinically stable. Addressing risk factors and on the right meds. Follow up with carilogist. 7. benight prostatic hyptrophy - med does help, continue 8. hypertenion- BP controlled. Take meds as above on am of surgery. 9. gastroesophogeal reflux disease- med does help, continnue 10. hyperlipdiemia- continue meds 11. diabetes mellitus type 2- continue to work on diet 12. anemai labs pending 13. colon polyp - declines f/up colosncopy RTC 03/19 with labs as planned -For new medications, potential side effects reviewed with patient. -Patient advised that if symptoms get worse or not better to call or go to nearest ED or urgent care for further evaluation. -Preventive medicine items reviewed with patient as indicated. -Refilled medications where indicated. PC-MEDICATION RECONCILIATION: The following medication list was reviewed with the patient/caregiver: MRT5 - Allergies/ADRs FACILITY ALLERGY/ADR -------- [facility] ATORVASTATIN [facility] CILOST[facility] FERROUS SULFATE [facility] ROSUVASTATIN [facility] SIMVASTATIN [facility] SPIRONOLACTONE [facility] [place] FERROUS SULFATE [facility] [place] ROSUVASTATIN [facility] [place] SIMVASTATIN MRR1 - Med Reconciliation INCLUDED IN THIS LIST: Alphabetical list of active outpatient prescriptions dispensed from this [place] (local) and dispensed from another [place] or [facility] facility (remote) as well as inpatient orders (local pending and active), local clinic medications, locally documented non-VA medications, and local prescriptions that have or been discontinued in the past 90 days. Non-VA Meds Last Documented On: May 15, 2019 NOTE The display of VA prescriptions dispensed from another [place] or [facility] facility (remote) is limited to active outpatient prescription entries matched to National Drug File at the originating site and may not include some items such as investigational drugs, compounds, etc. NOT INCLUDED IN THIS LIST: Medications self-entered by the patient into personal health records (i.e. [facility]) are NOT included in this list. Non-VA medications documented outside this [place], remote inpatient orders (regardless of status) and remote clinic medications are NOT included in this list. The patient and provider must always discuss medications the patient is taking, regardless of where the medication was dispensed or obtained. OUTPT ACETAMINOPHEN 500MG TAB (Status = Discontinued) TAKE TWO TABLETS BY MOUTH TWICE A DAY FOR PAIN OR FEVER - DO NOT EXCEED 4000MG OF ACETAMINOPHEN (APAP) PER DAY FROM ANY AND ALL SOURCES Rx# [id number] Last Released: 07/26/23 Qty/Days Supply: 100 Rx Expiration Date: 08/27/23 Refills Remainin OUTPT ACETAMINOPHEN 500MG TAB (Status = Active) TAKE TWO TABLETS BY MOUTH TWICE A DAY FOR PAIN OR FEVER - DO NOT EXCEED 4000MG OF ACETAMINOPHEN (APAP) PER DAY FROM ANY AND ALL SOURCES Rx# [id number] Last Released: 09/11/23 Qty/Days Supply: 10030 Rx Expiration Date: 09/08/24 Refills Remainin OUTPT ALBUTEROL 90MCG (CFC-F) 200D ORAL INHL (Status = Active) INHALE 2 PUFFS BY MOUTH FOUR TIMES A DAY NEEDED FOR BREATHING Rx# [id number] Last Released: 09/11/23 Qty/Days Supply: 04/25 Rx Expiration Date: 09/08/24 Refills Remainin OUTPT ALBUTEROL SULF 0.083% INHL 3ML (Status = Active) INHALE 3 ML VIA NEBULIZER BY ORAL NEBULIZATION FOUR TIMES A DAY NEEDED Rx# [id number] Last Released: 07/25/23 Qty/Days Supply: Rx Expiration Date: 07/21/24 Refills Remainin Indication: FOR SHORTNESS OF BREATH OUTPT ALUMINUM HYDROXIDE GEL 320MG/5ML SUSP (Status = Active) TAKE 15 ML BY MOUTH FOUR TIMES A DAY NEEDED FOR STOMACH ACID Rx# [id number] Last Released: 07/24/23 Qty/Days Supply: Rx Expiration Date: 07/21/24 Refills Remainin OUTPT AMIODARONE HCL (PACERONE) 200MG TAB (Status = Discontinued) TAKE ONE TABLET BY MOUTH DAILY FOR HEART Rx# [id number] Last Released: 08/17/23 Qty/Days Supply: Rx Expiration Date: 10/19/23 Refills Remainin OUTPT AMIODARONE HCL (PACERONE) 200MG TAB (Status = Active) TAKE ONE TABLET BY MOUTH DAILY FOR HEART Rx# [id number] Last Released: 11/09/23 Qty/Days Supply: Rx Expiration Date: 09/08/24 Refills Remainin OUTPT ASPIRIN 81MG CHEW TAB (Status = Discontinued) CHEW ONE TABLET BY MOUTH EVERY DAY FOR BLOOD THINNER Rx# [id number] Last Released: 09/05/23 Qty/Days Supply: Rx Expiration Date: 10/19/23 Refills Remainin OUTPT ASPIRIN 81MG CHEW TAB (Status = Active/Suspended) CHEW ONE TABLET BY MOUTH EVERY DAY FOR BLOOD THINNER Rx# [id number] Last Released: Qt Supply: Rx Expiration Date: 09/08/24 Refills Remainin OUTPT CETIRIZINE HCL 10MG TAB (Status = Active) TAKE ONE TABLET BY MOUTH EVERY DAY FOR ALLERGIES FOR FLUID BEHIND LEFT EAR. Rx# [id number] Last Released: 03/31/23 Qty/Days Supply: Rx Expiration Date: 03/29/24 Refills Remainin OUTPT CHOLECALCIF 25MCG (D3-1,000UNIT) TAB (Status = Discontinued) TAKE ONE TABLET (1000 UNITS) BY MOUTH DAILY FOR DIETARY SUPPLEMENT Rx# [id number] Last Released: 07/24/23 Qty/Days Supply: Rx Expiration Date: 08/24/23 Refills Remainin Non-VA COENZYME Q10 200MG CAP/TAB TAKE ONE CAPSULE BY MOUTH OUTPT CYCLOBENZAPRINE HCL 10MG TAB (Status = Active) TAKE ONE TABLET BY MOUTH THREE TIMES A DAY NEEDED Rx# [id number] Last Released: 07/24/23 Qty/Days Supply: 60 Rx Expiration Date: 12/03/23 Refills Remainin Indication: FOR MUSCLE SPASM OUTPT DEXTRAN 70/GLYCER 0.2%/HYPROMEL 0.3% OPH (Status = ) INSTILL TWO DROPS BOTH EYES THREE TIMES A DAY NEEDED FOR THE EYE Rx# [id number] Last Released: 07/26/23 Qty/Days Supply: Rx Expiration Date: 09/27/23 Refills Remainin OUTPT DOCUSATE NA 100MG CAP (Status = Active) TAKE ONE CAPSULE BY MOUTH DAILY Rx# [id number] Last Released: 11/02/23 Qty/Days Supply: Rx Expiration Date: 02/21/24 Refills Remainin Indication: FOR STOOL SOFTENER OUTPT DOCUSATE NA 100MG CAP (Status = Pending) TAKE ONE CAPSULE BY MOUTH DAILY Renewed from Rx# [id number] Qty/Days Supply: Login Date: 11/14/23 Refills Ordered: 3 OUTPT DOXAZOSIN MESYLATE 4MG TAB (Status = Active) TAKE ONE TABLET BY MOUTH AT BEDTIME FOR PROSTATE DOSE REDUCTION Rx# [id number] Last Released: 08/14/23 Qty/Days Supply: Rx Expiration Date: 08/09/24 Refills Remainin Indication: FOR PROSTATE OUTPT EZETIMIBE 10MG TAB (Status = Discontinued) TAKE ONE TABLET BY MOUTH EVERY DAY FOR LOWERING CHOLESTEROL Rx# [id number] Last Released: Qt Supply: Rx Expiration Date: 10/19/23 Refills Remainin OUTPT EZETIMIBE 10MG TAB (Status = Active/Suspended) TAKE ONE TABLET BY MOUTH EVERY DAY FOR LOWERING CHOLESTEROL Rx# [id number] Last Released: 09/26/23 Qty/Days Supply: Rx Expiration Date: 09/08/24 Refills Remainin OUTPT FUROSEMIDE 40MG TAB (Status = Discontinued) TAKE ONE TABLET BY MOUTH DAILY FOR BLOOD PRESSURE/WATER PILL Rx# [id number] Last Released: 08/14/23 Qty/Days Supply: Rx Expiration Date: 10/19/23 Refills Remainin OUTPT FUROSEMIDE 40MG TAB (Status = Active) TAKE ONE TABLET BY MOUTH DAILY FOR BLOOD PRESSURE/WATER PILL Rx# [id number] Last Released: 11/02/23 Qty/Days Supply: Rx Expiration Date: 09/08/24 Refills Remainin OUTPT GABAPENTIN 600MG TAB (Status = Active/Suspended) TAKE ONE TABLET BY MOUTH TWICE A DAY FOR PAIN/NEUROPATHY Rx# [id number] Last Released: 09/14/23 Qty/Days Supply: Rx Expiration Date: 07/21/24 Refills Remainin OUTPT LIDOCAINE 5% PATCH (Status = Active) USE 1 PATCH TOPICALLY TO DRY, HAIRLESS AREA ONCE DAILY NEEDED PRESS PATCH ONTO THE SKIN FOR 10-15 SECONDS TO HEAT ACTIVATE THE ADHESIVE. REMOVE PATCH(ES) AFTER 12 HOURS AND LEAVE OFF FOR 12 HOURS. Rx# [id number] Last Released: 02/22/23 Qty/Days Supply: 90/90 Rx Expiration Date: 02/21/24 Refills Remainin Indication: FOR PAIN OUTPT LISINOPRIL 5MG TAB (Status = Discontinued) TAKE ONE TABLET BY MOUTH DAILY FOR BLOOD PRESSURE Rx# [id number] Last Released: 07/24/23 Qty/Days Supply: 90/90 Rx Expiration Date: 08/24/23 Refills Remainin OUTPT LISINOPRIL 5MG TAB (Status = Active) TAKE ONE TABLET BY MOUTH DAILY FOR BLOOD PRESSURE Rx# [id number] Last Released: 10/03/23 Qty/Days Supply: 90/90 Rx Expiration Date: 09/08/24 Refills Remainin OUTPT MAGNESIUM OXIDE 400MG TAB (Status = Discontinued) TAKE ONE TABLET BY MOUTH DAILY WITH FOOD Rx# [id number] Last Released: 07/31/23 Qty/Days Supply: 120/90 Rx Expiration Date: 10/19/23 Refills Remainin Indication: FOR MAGNESIUM REPLACEMENT OUTPT MAGNESIUM OXIDE 400MG TAB (Status = Active) TAKE ONE TABLET BY MOUTH DAILY WITH FOOD Rx# [id number] Last Released: 10/19/23 Qty/Days Supply: 120/90 Rx Expiration Date: 09/08/24 Refills Remainin Indication: FOR MAGNESIUM REPLACEMENT OUTPT MENTHOL/M-SALICYLATE 10-15% TOP CREAM (Status = Active) APPLY SMALL AMOUNT TOPICALLY NEEDED Rx# [id number] Last Released: 07/24/23 Qty/Days Supply: 90 Rx Expiration Date: 02/01/24 Refills Remainin Indication: FOR SORE MUSCLES OR JOINTS OUTPT METOPROLOL SUCCINATE 200MG SA TAB (Status = Discontinued) TAKE ONE-HALF TABLET BY MOUTH EVERY DAY FOR HEART/BLOOD PRESSURE Rx# [id number] Last Released: 07/24/23 Qty/Days Supply: 45/ Rx Expiration Date: 08/24/23 Refills Remainin Indication: FOR BLOOD PRESSURE OUTPT METOPROLOL SUCCINATE 200MG SA TAB (Status = Discontinued) TAKE ONE-HALF TABLET BY MOUTH EVERY DAY FOR HEART/BLOOD PRESSURE Rx# [id number] Last Released: 10/03/23 Qty/Days Supply: 45/ Rx Expiration Date: 09/08/24 Refills Remainin Indication: FOR BLOOD PRESSURE OUTPT METOPROLOL SUCCINATE 50MG SA TAB (Status = Active) TAKE ONE TABLET BY MOUTH EVERY DAY Rx# [id number] Last Released: 10/26/23 Qty/Days Supply: Rx Expiration Date: 08/09/24 Refills Remainin OUTPT MOMETASONE 200MCG/ACTUAT 120D ORAL INHL (Status = Discontinued) INHALE TWO PUFFS BY MOUTH TWICE A DAY RINSE MOUTH AFTER EACH USE Rx# [id number] Last Released: 07/24/23 Qty/Days Supply: 04/25 Rx Expiration Date: 08/24/23 Refills Remainin OUTPT MOMETASONE 200MCG/ACTUAT 120D ORAL INHL (Status = Active) INHALE TWO PUFFS BY MOUTH TWICE A DAY RINSE MOUTH AFTER EACH USE Rx# [id number] Last Released: 10/26/23 Qty/Days Supply: 04/25 Rx Expiration Date: 09/08/24 Refills Remainin OUTPT MONTELUKAST NA 10MG TAB (Status = Active) TAKE ONE TABLET BY MOUTH AT BEDTIME Rx# [id number] Last Released: 11/02/23 Qty/Days Supply: Rx Expiration Date: 07/21/24 Refills Remainin OUTPT MONTELUKAST NA 10MG TAB (Status = Pending) TAKE ONE TABLET BY MOUTH AT BEDTIME Renewed from Rx# [id number] Qty/Days Supply: Login Date: 11/14/23 Refills Ordered: 3 OUTPT MULTIVITAMIN CAP/TAB (Status = Discontinued) TAKE 1 CAP/TAB BY MOUTH DAILY SUPPLEMENT Rx# [id number] Last Released: 07/24/23 Qty/Days Supply: Rx Expiration Date: 08/24/23 Refills Remainin OUTPT MULTIVITAMIN CAP/TAB (Status = Active) TAKE 1 CAP/TAB BY MOUTH DAILY SUPPLEMENT Rx# [id number] Last Released: 10/04/23 Qty/Days Supply: Rx Expiration Date: 09/08/24 Refills Remainin OUTPT NITROGLYCERIN (EQ-NITROSTAT) 0.4MG SL TB (Status = ) DISSOLVE ONE TABLET UNDER THE TONGUE EVERY 5 MINUTES NEEDED FOR CHEST PAIN. IF NO IMPROVEMENT AFTER THREE DOSES GO TO NEAREST EMERGENCY ROOM. DISCARD OPENED BOTTLE AFTER 6 MONTHS Rx# [id number] Last Released: 10/02/23 Qty/Days Supply: 100/30 Rx Expiration Date: 09/27/23 Refills Remainin Indication: FOR CHEST PAIN OUTPT OLODATEROL/TIOTROP 2.5MCG/ACTUAT 60D INH (Status = Active) INHALE 2 PUFFS BY MOUTH EVERY DAY START USING AFTER FINISHING THE TRELEGY SAMPLES PER PROVIDER Rx# [id number] Last Released: 10/26/23 Qty/Days Supply: Rx Expiration Date: 02/21/24 Refills Remainin OUTPT OMEPRAZOLE 40MG EC CAP (Status = Active) TAKE ONE CAPSULE BY MOUTH EVERY MORNING 30 MINUTES BEFORE BREAKFAST Rx# [id number] Last Released: 07/24/23 Qty/Days Supply: Rx Expiration Date: 02/21/24 Refills Remainin Indication: FOR STOMACH ACID OUTPT PRAVASTATIN NA 20MG TAB (Status = Discontinued) TAKE ONE-HALF TABLET BY MOUTH SUNDAYS, MONDAYS, WEDNESDAYS AND FRIDAYS FOR CHOLESTEROL. CALL YOUR PROVIDER IF YOU HAVE MUSCLE PAIN, TENDERNESS OR WEAKNESS Rx# [id number] Last Released: 07/24/23 Qty/Days Supply: Rx Expiration Date: 08/24/23 Refills Remainin Indication: FOR CHOLESTEROL OUTPT PRAVASTATIN NA 20MG TAB (Status = Active) TAKE ONE-HALF TABLET BY MOUTH SUNDAYS, MONDAYS, WEDNESDAYS AND FRIDAYS FOR CHOLESTEROL. CALL YOUR PROVIDER IF YOU HAVE MUSCLE PAIN, TENDERNESS OR WEAKNESS Rx# [id number] Last Released: 10/03/23 Qty/Days Supply: Rx Expiration Date: 09/08/24 Refills Remainin Indication: FOR CHOLESTEROL OUTPT TERBINAFINE HCL 250MG TAB (Status = Active) TAKE ONE TABLET BY MOUTH DAILY Rx# [id number] Last Released: 05/16/23 Qty/Days Supply: Rx Expiration Date: 04/03/24 Refills Remainin Indication: FOR FUNGAL INFECTION OUTPT TOLNAFTATE 1% TOP PWD (Status = Active) APPLY SUFFICIENT QUANTITY TOPICALLY DAILY Rx# [id number] Last Released: 02/01/23 Qty/Days Supply: 45 Rx Expiration Date: 02/01/24 Refills Remainin Indication: FOR FUNGAL INFECTION OF THE SKIN OUTPT VITAMIN B COMPLEX CAP (Status = Discontinued) TAKE ONE CAPSULE BY MOUTH DAILY Rx# [id number] Last Released: 07/24/23 Qty/Days Supply: 100/90 Rx Expiration Date: 08/24/23 Refills Remainin OUTPT VITAMIN B COMPLEX CAP (Status = Active) TAKE ONE CAPSULE BY MOUTH DAILY Rx# [id number] Last Released: 10/03/23 Qty/Days Supply: 100/90 Rx Expiration Date: 09/08/24 Refills Remainin SUPPLIES OUTPT ACCU-CHEK GUIDE (GLUCOSE) TEST STRIP (Status = Active) USE ONE STRIP THREE TIMES WEEKLY FOR BLOOD GLUCOSE MONITORING (STORE IN ORIGINAL BOTTLE WITH LID ON AT ALL TIMES) Rx# [id number] Last Released: 07/26/23 Qty/Days Supply: 50/30 Rx Expiration Date: 12/03/23 Refills Remainin OUTPT ALCOHOL PREP PAD (Status = Active) USE PAD TO SUPPLY DIRECTED Rx# [id number] Last Released: 07/26/23 Qty/Days Supply: 200/30 Rx Expiration Date: 12/03/23 Refills Remainin Potential risks, benefits, and alternative to medications prescribed were discussed with Lacrosse/caregiver who was given an opportunity to ask questions, which were answered to the best of my ability and seemingly to their satisfaction. Lacrosse/caregiver was/were instructed to contact provider (means provided) with any concerns or questions. A list of reconciled medications was provided to the /caregiver. /loli/ Dre Contreras M.D. M.D. Signed: 11/14/2023 12:11 DRE CONTRERAS [facility] Nov 14, 2023 11:18 AM NURSING NOTE: LOCAL TITLE: JANEY/PREVMED STANDARD TITLE: NURSING NOTE DATE OF NOTE: NOV 14, 2023@11:18 ENTRY DATE: NOV 14, 2023@11:18:14 AUTHOR: ZACK HOOKER EXP COSIGNER: URGENCY: STATUS: COMPLETED TWO OR MORE PATIENT IDENTIFIERS REQUIRED FULL NAME SS NUMBER Date here for H & P for Surgery: Right 3rd trigger finger release. Location: [facility] Date: 11/22/2023 PCP: [place] Specialists: podiatry, prosthetics, orthopedics, cardiology EKG performed and results given to provider for review RHS Screen: RHS Screen Environmental Check Screening was not completed at this time due to: Other: declined JANEY-EXERCISE SCREEN: Patient Refused Exercise Screen. Has the patient fallen within the past 12 months? NO. COVID-19 Immunization: Referred to another clinic for immunization (desired vaccine unavailable at this location) /loli/ ZACK HOOKER lpn Signed: 11/14/2023 11:43 ZACK HOOKER [facility]
--- OUTSIDE RECORDS SUMMARY | 2024-09-07 11:16 | XMS_ITS | Encounter Summary ---
Author Name [facility] [place] [facility] Address [address] [place] [address] Care Team Providers Care Lock Technician Name Role Phone BEN, DANNY Primary Care Provider Unavailabl e Selected Encounter This section includes the information on record at [place] for the Encounter. Date/Time Encounter Type Encounter Description Reason Provider Source Jul 03, 2024 09:35 AM SYNCH AUDIO-VIDEO EST MOD 30 PODIATRY ICD-10-CM E11.40 Type 2 diabetes mellitus with diabetic neuropathy, unsp [facility] COONE[facility] Encounter Template Text not used by [place] Assessments - Encounter Diagnoses This section includes the primary and secondary diagnoses documented for the Encounter. Date/Time Primary/Secondary Diagnosis Diagnosis Name Provider Source Jul 03, 2024 10:10 AM PRIMARY Type 2 diabetes mellitus with diabetic neuropathy, unsp [facility] Jul 03, 2024 10:10 AM SECONDARY Corns and callosities [facility] Jul 03, 2024 10:10 AM SECONDARY Lymphedema, not elsewhere classified [facility] Jul 03, 2024 10:10 AM SECONDARY Other instability, unspecified ankle [facility] [place] [facility] Jul 03, 2024 10:10 AM SECONDARY Tinea unguium [facility] [place] [facility] Plan of Treatment: Future Appointments (+ 6 months) and Future Tests (+/- 45 days) The Plan of Treatment section includes future care activities for the patient from all [place] [facility]. This section includes future appointments and future orders which are active, pending or scheduled. Future Appointments This section includes appointments that were scheduled to occur 6 months from the date of the Encounter, up to a maximum of 20 appointments. The data comes from all [facility]. Appointment Date/Time Appointment Type Appointme nt Facility Name Jul 16, 2024 10:15 AM AMBULATORY - NONE [facility] August 14, 2024 10:30 AM AMBULATORY - NONE [facility] August 22, 2024 08:30 AM AMBULATORY - NONE [facility] Aug 27, 2024 09:10 AM AMBULATORY - NONE [facility] Aug 27, 2024 01:00 PM AMBULATORY - REHAB MEDICIN E [facility] Sep 05, 2024 09:30 AM AMBULATORY - MEDICINE [facility] Sep 10, 2024 09:45 AM AMBULATORY - NONE [facility] Oct 23, 2024 10:00 AM AMBULATORY - SURGERY [facility] Oct 23, 2024 10:05 AM AMBULATORY - NONE [facility] [place] [facility] Active, Pending, and Scheduled Orders This section includes a listing of several types of active, pending, and scheduled orders, including clinic medications orders, diagnostic test orders, procedure orders and consult orders; where the start date of the order is 45 days before the date of the Encounter or 45 days after the date of theEncounter. The data comes from all [facility]. Test Date/Time Test Type Test Details Facility Name Jun 20, 2024 07:58 AM Consult Order [facility]ENDOCRINOLOGY Cons Re[employer] [facility] Advance Directives: All historical and current Section Date Range: From patient's date of to the date document was created. This section includes ALL of a patient's completed or amended [place] Advance and Rescinded Directives. The entries below indicate that a directive exists for the patient, but an actual copy is not included with this document. The data comes from all [facility]. Date Advance Directives Provider Source August 13, 2013 ADVANCE DIRECTIVE MARITA SANDERS [facility] Oct 13, 1998 ADVANCE DIRECTIVE Jessica YOST [facility] Mar 14, 1994 ADVANCE DIRECTIVE YUMIKO HOLMAN [facility] Encounter Notes: All associated encounter notes This section contains the clinical notes associated to the Encounter. Date/Time Encounter Note(s) Provider Source Jul 03, 2024 09:31 AM SURGERY NOTE: LOCAL TITLE: SURGERY/PODIATRY STANDARD TITLE: SURGERY NOTE DATE OF NOTE: JUL 03, 2024@09:31 ENTRY DATE: JUL 03, 2024@09:31:39 AUTHOR: MELINA COONEY COSIGNER: URGENCY: STATUS: COMPLETED PODIATRY CVT BREEDING CONSENT Patient is in [place]. He is being seen by me via tele/CVT. He gives his consent to be seen by me and treated by the local LPNs in [place]. TCT CVT PLASTIC PARTS FABRICATOR also assisted in the exam. 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 Patient has diabetic neuropathy. PAtient also has ankles that tend to roll often. Wearing boots helps-only has one pair of boots he can currently get on his feet SH: reviewed FH: reviewed ROS: Constitutional: Denies Fever/Chills/Fatigue GI: Denies Nausea/Vomitting/diarrhea O: LOWER EXTREMITY PHYSICAL EXAMINATION Alert and oriented x 3 NAD NAILS STATUS: _x10__ Long thick dystrophic discolored with subungual debris consistent with onychomycosis 2nd interspace webbed both feet INTEGUMENT: _x__ Atrophic skin No open lesions No SOI VASCULAR STATUS: Dorsalis Pedis R foot: _x__ 1/4 b/l Dorsalis Pedis L foot: __x_ 1/4 b/l Posterior Tibial R foot: _x__ 1/4 b/l Posterior Tibial L foot: _x__ 1/4 b/l _x__ Capillary fill time < 3 s x 10 Feet have a normal temperature gradient b/l LE _x__No pedal hair noted b/l feet There is no cyanosis in dependency, and no pallor with elevation observed on both lower extremities. NEUROLOGICAL EXAM: _x__Decreased to SWMF 5.07 b/l LE Musculoskeletal Examination: Muscle strength WNL to b/l LE Increase supination and pronation noted at STJ +POP to lateral ankle ligaments both ankles Medication Reconciliation: Medications reviewed and taken as prescribed. Denies herbals and new prescriptions. Allergies: Denies any change. No MEDICATION RECONCILIATION WAS DONE If Yes, Medications were added, changed, discontinued or used on a temporary basis during this episode of care. They were evaluated for conflicts with other medications. The patient was made aware of any change in his/her medications and has been educated on the use of this product. Warnings related to adverse effects and reasons for this change in his/her medications were also discussed. If No, No medications were added, changed, discontinued, or used on a temporary basis during this episode of care. PC-DIABETIC FOOT EXAM: Patient had diabetic foot exam at this encounter. Skin inspection (left) FINDINGS: Abnormal Skin inspection (right) FINDINGS: Abnormal Pedal Pulses present (left) FINDINGS: Abnormal Pedal Pulses present (right) FINDINGS: Abnormal Patient had sensation checked by monofilament (left) FINDINGS: Abnormal Patient had sensation checked by monofilament (right) FINDINGS: Abnormal FOOT RISK ASSESSMENT SCREEN SCORE: MODERATE: Foot Risk Level 2 EDUCATIONAL TOPIC: KEEPING FEET HEALTHY-INSTRUCTIONS FOR PROPER FOOT CARE Level of Understanding: Good Suicide Screen: C-SSRS Screening [place]-Suicide Severity Rating Scale (C-SSRS Screener) 1. Over the past month, have you wished you were or wished you could go to sleep and not wake up? No 2. Over the past month, have you had any actual thoughts of killing yourself? No 3. Over the past month, have you been thinking about how you might do this? Response not required due to responses to other questions. 4. Over the past month, have you had these thoughts and had some intention of acting on them? Response not required due to responses to other questions. 5. Over the past month, have you started to work out or worked out the details of how to kill yourself? Response not required due to responses to other questions. 6. If yes, at any time in the past month did you intend to carry out this plan? Response not required due to responses to other questions. 7. In your lifetime, have you ever done anything, started to do anything, or prepared to do anything to end your life (for example, collected pills, obtained a gun, gave away valuables, went to the roof but didn't jump)? No 8. If YES, was this within the past 3 months? Response not required due to responses to other questions. /loli/ Melina Cooney DPM DPM, Fur Cleaner Signed: 07/03/2024 10:10 MELINA COONEY [facility]
--- OUTSIDE RECORDS SUMMARY | 2024-09-07 11:16 | XMS_ITS | Encounter Summary ---
Author Name [facility] of [facility] ([place]) Organization [facility] ([place]) Address [address] [place] [address] Care Team Providers Care [employer] Groover Name Role Phone DRE CONTRERAS Primary Care Provider Unavailabl e Selected Encounter This section includes the information on record at [place] for the Encounter. Date/Time Encounter Type Encounter Description Reason Provider Source Mar 07, 2024 10:00 AM OFFICE O/P EST MOD 30 MIN PRIMARY CARE/MEDICINE ICD-10-CM L72.3 Sebaceous cyst DRE CONTRREAS Manjinder Encounter Template Text not used by [place] Assessments - Encounter Diagnoses This section includes the primary and secondary diagnoses documented for the Encounter. Date/Time Primary/Secondary Diagnosis Diagnosis Name Provider Source Mar 07, 2024 10:34 AM PRIMARY Sebaceous cyst DRE CONTRERAS [facility] Mar 07, 2024 10:34 AM SECONDARY Benign prostatic hyperplasia without lower urinry tract symp DRE CONTRERAS [facility] Mar 07, 2024 10:34 AM SECONDARY Chronic ischemic heart disease, unspecified [facility] Mar 07, 2024 10:34 AM SECONDARY Chronic kidney disease, unspecified [facility] Mar 07, 2024 10:34 AM SECONDARY Chronic obstructive pulmonary disease, unspecified [facility] Mar 07, 2024 10:34 AM SECONDARY Essential (primary) hypertension [facility] Mar 07, 2024 10:34 AM SECONDARY Gastro-esophageal reflux disease without esophagitis [facility] Mar 07, 2024 10:34 AM SECONDARY Hyperlipidemia, unspecified [facility] Mar 07, 2024 10:34 AM SECONDARY Iron deficiency anemia, unspecified [facility] Mar 07, 2024 10:34 AM SECONDARY Polyp of colon [facility] Mar 07, 2024 10:34 AM SECONDARY Re-entry ventricular arrhythmia [facility] Mar 07, 2024 10:34 AM SECONDARY Sleep related leg cramps [facility] Mar 07, 2024 10:34 AM SECONDARY Type 2 diabetes mellitus without complications [facility] Mar 07, 2024 10:34 AM SECONDARY 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 This section includes future appointments and future orders which are active, pending or scheduled. Future Appointments This section includes appointments that were scheduled to occur 6 months from the date of the Encounter, up to a maximum of 20 appointments. The data comes from all [facility] facilities. Appointment Date/Time Appointment Type Appointme nt Facility Name Apr 10, 2024 11:30 AM AMBULATORY - SURGERY [facility] Apr 10, 2024 11:35 AM AMBULATORY - NONE [facility] Jun 17, 2024 10:00 AM AMBULATORY - NONE [facility] Jun 19, 2024 01:30 PM AMBULATORY - MEDICINE [facility] Jul 03, 2024 09:30 AM AMBULATORY - SURGERY [facility] Jul 03, 2024 09:35 AM AMBULATORY - NONE [facility] Jul 03, 2024 11:00 AM AMBULATORY - NONE [facility] Jul 16, 2024 10:15 AM AMBULATORY - NONE [facility] August 14, 2024 10:30 AM AMBULATORY - NONE [facility] August 22, 2024 08:30 AM AMBULATORY - NONE [facility] Aug 27, 2024 09:10 AM AMBULATORY - NONE [facility] Aug 27, 2024 01:00 PM AMBULATORY - REHAB MEDICIN [facility] Sep 05, 2024 09:30 AM AMBULATORY - MEDICINE [facility] Lab Results: +/- 30 days of the encounter This section includes the Chemistry and Hematology Lab Results on record with [place] for the patient. Radiology Reports and Pathology Reports are provided separately, in subsequent sections. Lab Results This section contains the Chemistry/Hematology Results that were resulted 30 days before or 30 daysafter the date of the Encounter. Date/Time Source Result Type Result - Unit Interpretation Reference Range Specimen Type Comment Feb 29, 2024 09:49 AM [facility] A1C % BLOOD Specimen Type: BLOOD [...] Ordering Provider: DRE CONTRERAS Report Released Date/Time: Sep 08, 2023 10:52 AM Reporting Lab: [address] [id number] Performing Lab: [address] [address] A1C % 6.1 H 0.0-5.6 Feb 29, 2024 09:49 AM [facility] LIPID PNL PLASMA Specimen T ype: PLASMA Comment: Low-risk levels (desirable) <200 mg/dL Moderate-risk levels (borderline) 200-239 mg/dL High-risk levels: >= 240 mg/dL Normal: <150 mg/dL -Borderline High: 150-199 mg/dL -High: 200-499 mg/dL -Very High: >500 mg/dL eGFR was calculated using the CKD-EPI Creatinine (2020) equation. Optimal: <100 mg/dL -Near Optimal/Above Optimal: 100-129 mg/dL -Borderline High: 130-159 mg/dL -High: 160-189 mg/dL -Very High: >=190 mg/dL Ordering Provider: DRE CONTRERAS Report Released Date/Time: Sep 08, 2023 10:52 AM Reporting Lab: [address] [address] Performing Lab: [place] [id number] DIR. HDL 41 mg/dL L >=60 TRIGLYCERIDES 214 mg/dL H See Comment DIR LDL canc CHOL 152 mg/dL See Comment LDL (CALCULATED) 68 mg/dL See Comment Feb 29, 2024 09:49 AM [facility] URINE ALBUMIN/CREAT (RAND URINE) URINE Specimen Type: URINE No comment entered. Ordering Provider: DRE CONTRERAS Report Released Date/Time: Sep 08, 2023 10:52 AM Reporting Lab: [address] [address] Performing Lab: [address] [address] URINE ALBUMIN(RAND URINE) 1.8 mg/dL <2.0 CREAT(RNDM URINE) 104.60 mg/dL 40-278 CREAT RATIO (RNDM URINE) 17 mg/g <30 Feb 29, 2024 09:49 AM [facility] THYROID CASCADE PANEL SERUM Spe cimen Type: SERUM No comment entered. Ordering Provider: DRE CONTRERAS Report Released Date/Time: Sep 08, 2023 10:52 AM Reporting Lab: [address] [address] Performing Lab: [address] [address] TSH3 ULTRA EIA 0.868 u[IU]/mL 0.550-4.78 0 Feb 29, 2024 09:49 AM [facility] COMPREHENSIVE PNL PLASMA Specime n Type: PLASMA Comment: Low-risk levels (desirable) <200 mg/dL Moderate-risk levels (borderline) 200-239 mg/dL High-risk levels: >= 240 mg/dL Normal: <150 mg/dL -Borderline High: 150-199 mg/dL -High: 200-499 mg/dL -Very High: >500 mg/dL eGFR was calculated using the CKD-EPI Creatinine (2020) equation. Optimal: <100 mg/dL -Near Optimal/Above Optimal: 100-129 mg/dL -Borderline High: 130-159 mg/dL -High: 160-189 mg/dL -Very High: >=190 mg/dL Ordering Provider: DRE CONTRERAS Report Released Date/Time: Sep 08, 2023 10:52 AM Reporting Lab: [address] [phone] Performing Lab: [address] [address] ANION GAP 5 mmol/L 5-15 EGFR 64 mL/min/{1.73_m2} >= 60 GLUCOSE 99 mg/dL 70-99 POTASSIUM 4.3 mmol/L 3.5-4.7 SODIUM 138 mmol/L 136-145 BILI,TOTAL 0.2 mg/dL 0.2-1.2 PROTEIN, TOTL 7.1 g/dL 5.7-8.2 ALBUMIN 4.4 g/dL 3.4-5.0 ALKAL PHOS 47 U/L 45-117 ALT 16 U/L 10-65 AST 13 U/L 10-37 UREA NITROGEN 23 mg/dL H 7-21 CALCIUM, TOTAL 9.7 mg/dL 8.7-10.4 CO2 27 mmol/L 21-32 CHLORIDE 106 mmol/L 98-109 CREATININE 1.22 mg/dL H 0.73-1.18 Feb 29, 2024 09:49 AM [facility] CBC W/DIFF BLOOD Specimen T ype: BLOOD No comment entered. Ordering Provider: DRE CONTRERAS Report Released Date/Time: Sep 08, 2023 10:52 AM Reporting Lab: [address] [address] Performing Lab: [address] [address] WBC 6.6 10*3/uL 4.0-11.0 RBC 3.89 10*6/uL L 4.20-5.70 HGB 11.9 g/dL L 13.0-17.0 HCT 36.5 L 40.0-51.0 MCV 93.8 fL 82.0-99.0 MCH 30.6 pg 27.0-34.0 MCHC 32.6 g/dL 31.0-37.0 MPV 9.3 fL 8.0-12.[address] 329 10*3/uL 130-400 RDW-CV 15.4 H < 15.0 NEUTROPHILS% 55.3 LYMPHS% 27.1 MONOS% 8.0 EOS% 7.6 BASOS% 1.2 IG% 0.8 NEUTROPHILS# 3.7 10*3/uL 1.5-8.0 LYMPHS# 1.8 10*3/uL 1.0-4.0 MONOS# 0.5 10*3/uL 0.2-1.0 EOS# 0.5 10*3/uL H 0.0-0.4 BASOS# 0.1 10*3/uL 0.0-0.2 IG# 0.1 10*3/uL 0.0-0.5 NRBC% 0.0 /100{WBCs} 0.0-0.2 NRBC# <0.01 10*3/uL 0.00-0.01 Vital Signs: All taken on the encounter date This section contains inpatient and outpatient Vital Signs collected on the date of the Encounter. Date/Time Temperature Pulse Blood Pressure Respiratory Rate SP02 Pain Height Weight Body Mass Index Source Mar 07, 2024 10:02 AM 97.9 59 124/54 16 94 0 241.9 37 [facility] Social History: Smoking Status (Most current) and Tobacco Use (All prior to encounter date) This section includes the most current, and the historical, smoking and tobacco- related health factors from the [place] facility where the Encounter took place. Current Smoking Status This section includes the most current smoking, or tobacco-related health factor, from the [place] facility where the Encounter took place. Date/Time Current Smoking Status Comment [facility] it Sep 08, 2023 10:30 AM VA-TOBACCO USER EVERY DAY [facility] Tobacco Use History This section includes a history of the smoking, or tobacco-related health factors, that were collected on or before the date of the Encounter. The data comes from the [place] facility where the Encounter took place. Date/Time Smoking Status/Tobac co Use Comment Facility Sep 08, 2023 10:30 AM VA-TOBACCO USE ADVICE [facility] [place] Sep 08, 2023 10:30 AM VA-TOBACCO USE HYDROELECTRIC STATION OPERATOR NO [facility] Sep 08, 2023 10:30 AM VA-TOBACCO USE MED NO [facility] Sep 08, 2023 10:30 AM VA-TOBACCO USE WI 30 MIN OF WAKEUP [facility] Sep 08, 2023 10:30 AM VA-TOBACCO USER EVERY DAY [facility] August 23, 2022 08:30 AM VA-TOBACCO USE 30 YEARS OR MORE [facility] August 23, 2022 08:30 AM VA-TOBACCO USE ADVICE [facility] [place] August 23, 2022 08:30 AM VA-TOBACCO USE HYDROELECTRIC STATION OPERATOR NO [facility] August 23, 2022 08:30 AM VA-TOBACCO USE MED NO [facility] August 23, 2022 08:30 AM VA-TOBACCO USE WI 30 MIN OF [facility] August 23, 2022 08:30 AM VA-TOBACCO USER EVERY DAY [facility] May 07, 2021 10:00 AM VA-TOBACCO USE 30 YEARS OR MORE [facility] May 07, 2021 10:00 AM VA-TOBACCO USE ADVICE [facility] May 07, 2021 10:00 AM VA-TOBACCO USE HYDROELECTRIC STATION OPERATOR [facility] May 07, 2021 10:00 AM VA-TOBACCO USE MED [facility] [place] May 07, 2021 10:00 AM VA-TOBACCO USE WI 30 MIN OF [facility] May 07, 2021 10:00 AM VA-TOBACCO USER EVERY DAY [facility] May 07, 2020 01:00 PM VA-TOBACCO USE 30 YEARS OR MORE [facility] May 07, 2020 01:00 PM VA-TOBACCO USE ADVICE [facility] [place] May 07, 2020 01:00 PM VA-TOBACCO USE HYDROELECTRIC STATION OPERATOR NO [facility] May 07, 2020 01:00 PM VA-TOBACCO USE MED [facility] [place] May 07, 2020 01:00 PM VA-TOBACCO USE WI 30 MIN OF [facility] May 07, 2020 01:00 PM VA-TOBACCO USER EVERY DAY [facility] Feb 13, 2019 11:11 AM VA-TOBACCO USE 30 YEARS OR MORE [facility] Feb 13, 2019 11:11 AM VA-TOBACCO USE ADVICE [facility] [place] Feb 13, 2019 11:11 AM VA-TOBACCO USE HYDROELECTRIC STATION OPERATOR NO [facility] Feb 13, 2019 11:11 AM VA-TOBACCO USE MED NO [facility] [place] Feb 13, 2019 11:11 AM VA-TOBACCO USE WI 30 MIN OF [facility] Feb 13, 2019 11:11 AM VA-TOBACCO USER EVERY DAY [facility] Sep 25, 2017 04:04 PM VA-TOBACCO USE 30 YEARS OR MORE [facility] Sep 25, 2017 04:04 PM VA-TOBACCO USE ADVICE [facility] [place] Sep 25, 2017 04:04 PM VA-TOBACCO USE HYDROELECTRIC STATION OPERATOR NO [facility] Sep 25, 2017 04:04 PM VA-TOBACCO USE MED NO [facility] [place] Sep 25, 2017 04:04 PM VA-TOBACCO USE WI 30 MIN OF WAKEUP [facility] Sep 25, 2017 04:04 PM VA-TOBACCO USER EVERY DAY [facility] Sep 20, 2017 12:35 PM HF.TOBACCO COUNSELING REFUSED [facility] Jul 11, 2017 01:33 PM HF.TOBACCO COUNSELING REFUSED [facility] Jul 11, 2017 01:33 PM TOBACCO CESSATION MEDS REFUSED [facility] Jul 11, 2017 01:33 PM TOBACCO CESSATION REFERRAL REFUSED [facility] Jul 11, 2017 01:33 PM TOBACCO OFFERRED STOP SMOKING CLINIC [facility] May 05, 2017 08:20 AM HF.TOBACCO COUNSELING REFUSED [facility] Feb 01, 2017 01:03 PM HF.TOBACCO COUNSELING REFUSED [facility] Aug 29, 2016 08:43 AM HF.TOBACCO COUNSELING REFUSED 2 pk/day declined ( does not wnat to quit) [facility] Aug 29, 2016 08:43 AM TOBACCO CESSATION MEDS REFUSED [facility] Aug 29, 2016 08:43 AM TOBACCO CESSATION REFERRAL REFUSED [facility] Aug 29, 2016 08:43 AM TOBACCO OFFERRED STOP SMOKING CLINIC [facility] May 23, 2016 09:59 AM HF.TOBACCO COUNSELING REFUSED [facility] Feb 29, 2016 09:30 AM HF.TOBACCO COUNSELING REFUSED [facility] Aug 26, 2015 06:35 AM HF.TOBACCO COUNSELING REFUSED [facility] Aug 26, 2015 06:35 AM TOBACCO CESSATION MEDS REFUSED [facility] Aug 26, 2015 06:35 AM TOBACCO CESSATION REFERRAL REFUSED [facility] Aug 26, 2015 06:35 AM TOBACCO OFFERRED PT MEDS (PROVIDER) [facility] Aug 26, 2015 06:35 AM TOBACCO OFFERRED STOP SMOKING CLINIC [facility] Advance Directives: All historical and current Section Date Range: From patient's date of to the date document was created. This section includes ALL of a patient's completed or amended [place] Advance and Rescinded Directives. The entries below indicate that a directive exists for the patient, but an actual copy is not included with this document. The data comes from all [place] facilities. Date Advance Directives Provider Source August 13, 2013 ADVANCE DIRECTIVE MARITA SANDERS [facility] Oct 13, 1998 ADVANCE DIRECTIVE Jessica YOST Louann BUCIO [facility] Mar 14, 1994 ADVANCE DIRECTIVE YUMIKO HOLMAN [facility] Encounter Notes: All associated encounter notes This section contains the clinical notes associated to the Encounter. Date/Time Encounter Note(s) Provider Source Mar 07, 2024 10:16 AM PRIMARY CARE NOTE: LOCAL TITLE: [facility] STANDARD TITLE: PRIMARY CARE NOTE DATE OF NOTE: MAR 07, 2024@10:16 ENTRY DATE: MAR 07, 2024@10:16:31 AUTHOR: DRE CONTRERAS EXP COSIGNER: URGENCY: STATUS: COMPLETED CHIEF COMPLAINT: Appt for abcess of buttock, leg cramps, CKD, COPD, ventricular arrhythmia, CAD/CHF, BPH, HTN, GERD, hyperlipdiemia, DM2, anemia, colon polyp HISTORY OF PRESENT ILLNESS: Nursing notes reviewed. This is a 68 year-old being seen today for above reason. [place] has a couple of areas on back - one has pus in it and possible cyst. No drianage from areas now. [place] states from lower back to hip area - states it gets itchy and irritated. Does not have rash there now. [place] wants to see about getting documentation that he does not need to wear seat belt over shoulder due to pacemaker; ok with wearing lap belt. ADvied to talk to network support engineer about this. abcess on buttock - seen for this on 01/16/24. Given abx. Was to see surgeon for I&D. NO drainage from that area now. leg cramps - on MgOx. Meds do help. CKD - last creat was 1.22 with eGFR 64. Previously was 1.24 with eGFR 63. ADvised to push fluids and avoid NSAIDs. COPD - on mometazone, albuterol, oldaterol/tiotropium. Using inahlers. Breathing overall stable. ventricular arrhythmia - sees network support engineer. ON amiodarone, metorpolol. Has pacemaker. No palpaitons or dinzziness. CAD, CHF - EF 29%. On ASA, BB, lasix, lisinopril. Sees network support engineer. No chest pain, LE edema, orthoipnea, PND. BPH - on doxazosin. REports urinating ok wiht med. HTN - on lisinopril, metoporlol, lasix, doxazosin. BP ok on current Rx. GERD - on omeprazole. No GI sympotoms. hyperlipidemia- on pravastatin and zetia. Last labs showed total 152, trig 214, HDL 41, and LDL 68. DM2 - diet only. Last HbA1c was 6.1%. Last eye exam was 11/17 nonvA. ADvsiede to cut back on carbs. anemia - last H/H was 11.9/36.5. Previous H/H was 12.5/37.7. No GI sytmopsm as above. colon polyp - last colonscopy was 12/15 with f/up 12/18. He declined to do f/up. PAST MEDICAL HISTORY: Medications: As listed in chart and reviewed. Allergies: ROSUVASTATIN, SIMVASTATIN, FERROUS SULFATE, SPIRONOLACTONE, ATORVASTATIN CILOSTAZOL >>Non-VA provider(s): card, renal, endo, vascular SOCIAL HISTORY: Habits (Y/N): [y ] Tabacco [y ] Alcohol use [n ] Illicit drug use REVIEW OF SYSTEMS: General: No fever, chills, weight loss, or anorexia. No fatigue. HEENT: No visual or hearing changes. Cardiovascular: No chest pain, palptiations, edema. Respiratory: No cough, dyspnea, or hemoptysis. Gastrointestinal: No abdominal pain, nausea/vomiting, diarrhea, or hematochezia, or melena. Genitalurinary: No dysuria, urgency, frequency, hematuria. Musculoskeletal: No acute muscle or joint pain. Skin: See HPI. Neurologic: No headache, dizziness, numbness, tingling, weakness. Psychoogical: No depressive or anxiety symptoms. No suicidal ideation. OBJECTIVE: Vital signs: DATE/TIME TEMP PULSE RESP BP PAIN WT (LB) P OX 03/07/24 @ 1002 97.9 59 16 124/54 0 241.9 94 Physical Exam: General: NAD. Awake, alert, oriented x3. Heart: RRR. No murmurs, gallops, rubs. Lungs: CTAB without crackles, rhonchi, or wheeze. Abdomen: Pos bowel sounds, soft, non-distended. No tenderness, guarding, rebound. No HSM. Extremities: No clubbing, cyanosis, edema. Skin: sebecaous cyst on back. Dry skin on lower back Psychiatric: Ple[place], cooperative. Affect is full and mood congruent. Labs: [x ] Reviewed with patient from 02/29/24. ASSESSMENT/PLAN: 1. sebaceous cyst - not draining now and small. 2. leg cramps - med does help 3. chronic kidney disease- push fluids, avoid SNAIDs, monitor labs 4. chronic obstrtuive pulmoanrhy diseae- breating is stable, continue inhalers. NEeds to quit smoking. 5. ventricular arrhythmia - as per network support engineer 6. coronaty artery disease, congestive heart failure - clinically stable, continue meds. Follow up with network support engineer. 7. benign prostatic hyptrophy - med does help, continue 8. hypertension- blood pressure is good, continue meds 9. gastroesophgeal reflux diseae- med does help, continue 10. hyperlipdiemia- good lipid control, continue meds and diet 11. diabetes mellitus type 2- contine diet, monitor labs 12. anemai - no GI symtmpoms. Monitor labs. 13. colon polyp - declines to do follow up colonscopy Follow-up: 6 months [x ] Get labs 1 week before: Total time: 30 mins -For new medications, potential side effects reviewed with patient. -Medications refilled as needed. -Patient advised that if symptoms get worse or not better to call or go to nearest ED or urgent care for further evaluation. -Preventive medicine items reviewed with patient as indicated. -Patient advised to return to clinic as planned or as needed. /loli/ Dre Contreras M.D. M.D. Signed: 03/07/2024 10:35 DRE CONTRERAS [facility] Mar 07, 2024 09:52 AM NURSING NOTE: LOCAL TITLE: [facility] STANDARD TITLE: NURSING NOTE DATE OF NOTE: MAR 07, 2024@09:52 ENTRY DATE: MAR 07, 2024@09:52:05 AUTHOR: ZACK HOOKER EXP COSIGNER: URGENCY: STATUS: COMPLETED TWO OR MORE PATIENT IDENTIFIERS REQUIRED FULL NAME SS NUMBER Date [place] here for routine appointment PCP: [place] Specialists: podiatry, prosthetics, orthopedics, cardiovascular has a couple of areas on back - one has pus in it and possible cyst [place] states from lower back to hip area - states it gets itchy and irritated [place] wants to see about getting documentation that he does not need to wear seat belt over shoulder due to pacemaker; ok with wearing lap belt Influenza Immunization: Deferral / Refusal The patient declines to receive the recommended dose of seasonal influenza vaccine. Immunization: INFLUENZA, UNSPECIFIED FORMULATION Refusal Reason: PATIENT DECISION Patient refuses all immunization(s) in the FLU group Date Documented: 03/07/24 10:10 Sexual Orientation: The patient thinks of their sexual orientation as: Straight or Heterosexual RHS Screen: RHS Screen Environmental Check Screening was not completed at this time due to: Other: declined Homelessness/Food Insecurity Screen: In the past 2 months, have you been living in stable housing that you own, rent, or stay in as part of a household? Yes - Living in stable housing. Are you worried or concerned that in the next 2 months you may NOT have stable housing that you own, rent, or stay in as part of a household? No - Not worried about housing near future The [place] reports the following: Within the past 12 months, you worried whether your food would run out before you got money to buy more. Never true Within the past 12 months, the food you bought just didn't last and you didn't have money to get more. Never true MOVE!: MOVE! (Managing Overweight/Obesity for Veterans Everywhere) HEIGHT: 68 in [172.7 cm] (05/23/2016 09:56) WEIGHT: 241.9 lb [109.72 kg] (03/07/2024 10:02) BODY MASS INDEX: BMI: - NO HEIGHTS FOUND 'MOVE'---MANAGING OVERWEIGHT/OBESE VETERANS EVERYWHERE! Are you interested in speaking with a nutrition head athletic trainer/strength coach (dietitian)? Dietitians, exercise therapists, and healthy behavior coaches will work with you to create a customized plan that includes meal preparation, exercise guidance, and motivation to lose weight. Patient declines referral. [facility]-EDUCATION ASSESSMENT: `````````````````````````` ```````````` ANNUAL EDUCATION NEEDS/BARRIER ASSESSMENT Primary healthcare language: Fijian Barriers to Learning: Physical: Hearing Impairment Comment: ringing of ears Visual Impairment Comment: wears glasses Cognitive: None Socioeconomic: None Preferred Learning Methods: Demonstration - Watching and the Doing `````````````````````````` ```````````` [facility]-EXERCISE SCREEN: Patient had Exercise Screening done at this encounter. Type of exercise, duration and frequency/week. Comment: stays active Did patient report New Balance Problem? [ NO ] Did patient report New Transfer Problem? [ NO ] Did patient report New Ambulating Problem? [ NO ] Has the patient fallen within the past 12 months? NO. Consult Orders placed: No Consult orders needed. [facility]-PT AT RISK INCAPACITATED SCREEN: 1) Does the patient meet any of the criteria for being considered incapacitated? [ NO ] Stress: reports nothing in the last 6 months that has caused worry or stress. COVID-19 Immunization: /es/ ZACK HOOKER lpn Signed: 03/07/2024 10:15 ZACK HOOKER [facility]
--- OUTSIDE RECORDS SUMMARY | 2024-09-07 11:16 | XMS_ITS | Encounter Summary ---
Author Name [facility] ([place]) Organization [facility] ([place]) Address [address] [place] [address] Care Team Providers Care Flue Blower Name Role Phone DRE CONTRERAS Primary Care Provider Unavailabl e Selected Encounter This section includes the information on record at [place] for the Encounter. Date/Time Encounter Type Encounter Description Reason Provider Source Sep 05, 2024 09:30 AM OFFICE O/P EST MOD 30 MIN PRIMARY CARE/MEDICINE ICD-10-CM L72.3 Sebaceous cyst DRE CONTRERAS Manjinder Encounter Template Text not used by [place] Assessments - Encounter Diagnoses This section includes the primary and secondary diagnoses documented for the Encounter. Date/Time Primary/Secondary Diagnosis Diagnosis Name Provider Source Sep 05, 2024 09:50 AM PRIMARY Sebaceous cyst DRE CONTRERAS [facility] Sep 05, 2024 09:50 AM SECONDARY Benign prostatic hyperplasia without lower urinry tract symp DRE CONTRERAS [facility] Sep 05, 2024 09:50 AM SECONDARY Chronic ischemic heart disease, unspecified DRE CONTRERAS [facility] Sep 05, 2024 09:50 AM SECONDARY Chronic kidney disease, unspecified [facility] Sep 05, 2024 09:50 AM SECONDARY Chronic obstructive pulmonary disease, unspecified [facility] Sep 05, 2024 09:50 AM SECONDARY Essential (primary) hypertension [facility] Sep 05, 2024 09:50 AM SECONDARY Gastro-esophageal reflux disease without esophagitis [facility] Sep 05, 2024 09:50 AM SECONDARY Hyperlipidemia, unspecified [facility] Sep 05, 2024 09:50 AM SECONDARY Iron deficiency anemia, unspecified [facility] Sep 05, 2024 09:50 AM SECONDARY Re-entry ventricular arrhythmia [facility] Sep 05, 2024 09:50 AM SECONDARY Sleep related leg cramps [facility] Sep 05, 2024 09:50 AM SECONDARY Type 2 diabetes mellitus without complications [facility] Sep 05, 2024 09:50 AM SECONDARY 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 This section includes future appointments and future orders which are active, pending or scheduled. Future Appointments This section includes appointments that were scheduled to occur 6 months from the date of the Encounter, up to a maximum of 20 appointments. The data comes from all [facility]. Appointment Date/Time Appointment Type Appointme nt Facility Name Sep 10, 2024 09:45 AM AMBULATORY - NONE [facility] Oct 23, 2024 10:00 AM AMBULATORY - SURGERY [facility] Oct 23, 2024 10:05 AM AMBULATORY - NONE [facility] Jan 21, 2025 10:00 AM AMBULATORY - NONE [facility] Feb 27, 2025 09:30 AM AMBULATORY - NONE [facility] Mar 06, 2025 09:30 AM AMBULATORY - MEDICINE [facility] Active, Pending, and Scheduled Orders This section includes a listing of several types of active, pending, and scheduled orders, including clinic medications orders, diagnostic test orders, procedure orders and consult orders; where the start date of the order is 45 days before the date of the Encounter or 45 days after the date of theEncounter. The data comes from all [facility]. Test Date/Time Test Type Test Details Facility Name August 23, 2024 09:56 AM Consult Order [facility]ITY [facility]-DERMATOLOGY Cons [employer] [facility] Lab Results: +/- 30 days of the encounter This section includes the Chemistry and Hematology Lab Results on record with [place] for the patient. Radiology Reports and Pathology Reports are provided separately, in subsequent sections. Lab Results This section contains the Chemistry/Hematology Results that were resulted 30 days before or 30 daysafter the date of the Encounter. Date/Time Source Result Type Result - Unit Interpretation Reference Range Specimen Type Comment Aug 27, 2024 09:21 AM [facility] FOLATE ([place]) SERUM Specimen Type: SERUM Comment: Methotrexate and Leucovorin (folinic acid) interfere with the measurement of folate. Patients receiving these drugs should not be tested for folate by this method. Ordering Provider: DRE CONTRERAS Report Released Date/Time: May 03, 2024 12:41 PM Reporting Lab: [facility] [address] [facility] [address] Performing Lab: [facility] [address] [facility] [address] FOLATE (CONTRERAS) >48.00 ng/mL 5.39-48.00 Aug 27, 2024 09:21 AM [facility] FERRITIN (CONTRERAS) SERUM Specimen Type: SERUM Comment: Methotrexate and Leucovorin (folinic acid) interfere with the measurement of folate. Patients receiving these drugs should not be tested for folate by this method. Ordering Provider: DRE CONTRERAS Report Released Date/Time: May 24, 2024 09:08 AM Reporting Lab: [facility] [address] [facility] [address] Performing Lab: [facility] [address] [facility] [address] FERRITIN (CONTRERAS) 27.9 ng/mL 26.0-388.0 Aug 27, 2024 09:21 AM [facility] VITAMIN B12 (CONTRERAS) SERUM Speci men Type: SERUM Comment: Methotrexate and Leucovorin (folinic acid) interfere with the measurement of folate. Patients receiving these drugs should not be tested for folate by this method. Ordering Provider: DRE CONTRERAS Report Released Date/Time: Jun 28, 2024 07:56 AM Reporting Lab: [facility] [address] [facility] [address] Performing Lab: [facility] [address] [facility] [address] VITAMIN B12 (CONTRERAS) 728 pg/mL 193-986 Aug 27, 2024 09:21 AM [facility] A1C % BLOOD Specimen Type: BLOOD Comment: Normal: < or = 5.6% Pre-diabetes: 5.7-6.4% Diabetes Mellitus: > or = 6.5% Values obtained from A1C measurements can vary. For typical A1C assays, a reported value of 7.0 could actually be between 6.72 and 7.28 if measured by a reference method. A reported value of 9.0 could actually be between 8.73 and 9.27. Ref: [email or web address] Ordering Provider: DRE CONTRERAS Report Released Date/Time: Mar 07, 2024 10:28 AM Reporting Lab: [address] [address] Performing Lab: [address] [address] A1C % 6.2 H 0.0-5.6 Aug 27, 2024 09:21 AM [facility] IRON PANEL SERUM Specimen T ype: SERUM Comment: TIBC may be inaccurate if patient is on iron dextran in the last 14 days. Ordering Provider: DRE CONTRERAS Report Released Date/Time: Mar 07, 2024 10:32 AM Reporting Lab: [address] [address] Performing Lab: [address] [address] IRON 69 ug/dL 65-175 TOT IRON BINDING CAPAC 395 ug/dL 250-450 % IRON SATURATION 17 10-50 Aug 27, 2024 09:21 AM [facility] COMPREHENSIVE PNL PLASMA Specime n Type: PLASMA Comment: eGFR was calculated using the CKD-EPI Creatinine (2020) equation. Ordering Provider: DRE CONTRERAS Report Released Date/Time: Mar 07, 2024 10:28 AM Reporting Lab: [address] [address] Performing Lab: [address] [address] ANION GAP 6 mmol/L 5-15 EGFR 54 mL/min/{1.73_m2} L >= 60 GLUCOSE 113 mg/dL H 70-99 POTASSIUM 4.6 mmol/L 3.5-4.7 SODIUM 138 mmol/L 136-145 BILI,TOTAL 0.4 mg/dL 0.2-1.2 PROTEIN, TOTL 7.9 g/dL 5.7-8.2 ALBUMIN 4.8 g/dL 3.4-5.0 ALKAL PHOS 42 U/L L 45-117 ALT 25 U/L 10-65 AST 23 U/L 10-37 UREA NITROGEN 31 mg/dL H 7-21 CALCIUM, TOTAL 10.1 mg/dL 8.7-10.4 CO2 25 mmol/L 21-32 CHLORIDE 107 mmol/L 98-109 CREATININE 1.40 mg/dL H 0.73-1.18 Aug 27, 2024 09:21 AM [facility] CBC W/DIFF BLOOD Specimen T ype: BLOOD No comment entered. Ordering Provider: DRE CONTRERAS Report Released Date/Time: Mar 07, 2024 10:28 AM Reporting Lab: [address] [address] Performing Lab: [address] [address] WBC 7.6 10*3/uL 4.0-11.0 RBC 4.27 10*6/uL 4.20-5.70 HGB 12.3 g/dL L 13.0-17.0 HCT 38.5 L 40.0-51.0 MCV 90.2 fL 82.0-99.0 MCH 28.8 pg 27.0-34.0 MCHC 31.9 g/dL 31.0-37.0 MPV 9.1 fL 8.0-12.[address] 403 10*3/uL H 130-400 RDW-CV 15.5 H < 15.0 NEUTROPHILS% 67.2 LYMPHS% 22.1 MONOS% 5.5 EOS% 3.7 BASOS% 0.8 IG% 0.7 NEUTROPHILS# 5.1 10*3/uL 1.5-8.0 LYMPHS# 1.7 10*3/uL 1.0-4.0 MONOS# 0.4 10*3/uL 0.2-1.0 EOS# 0.3 10*3/uL 0.0-0.4 BASOS# 0.1 10*3/uL 0.0-0.2 IG# 0.1 10*3/uL 0.0-0.5 NRBC% 0.0 /100{WBCs} 0.0-0.2 NRBC# <0.01 10*3/uL 0.00-0.01 Vital Signs: All taken on the encounter date This section contains inpatient and outpatient Vital Signs collected on the date of the Encounter. Date/Time Temperature Pulse Blood Pressure Respiratory Rate SP02 Pain Height Weight Body Mass Index Source Sep 05, 2024 09:17 AM 97.9 F 66 /min 131/72 mm[Hg] 16 /min 94 % 1 238.6 lb 36 [facility] Social History: Smoking Status (Most current) and Tobacco Use (All prior to encounter date) This section includes the most current, and the historical, smoking and tobacco- related health factors from the [place] facility where the Encounter took place. Current Smoking Status This section includes the most current smoking, or tobacco-related health factor, from the [place] facility where the Encounter took place. Date/Time Current Smoking Status Comment Facil it Sep 05, 2024 09:30 AM VA-TOBACCO USE SANDI RY DAY CIGARETTES [facility] Tobacco Use History This section includes a history of the smoking, or tobacco-related health factors, that were collected on or before the date of the Encounter. The data comes from the [place] facility where the Encounter took place. Date/Time Smoking Status/Tobac co Use Comment Facility Sep 05, 2024 09:30 AM VA-TOBACCO SCREEN FOLLOW-UP [facility] Sep 05, 2024 09:30 AM VA-TOBACCO USE ADVICE [facility] Sep 05, 2024 09:30 AM VA-TOBACCO USE MILLWRIGHT HELPER NO [facility] Sep 05, 2024 09:30 AM VA-TOBACCO USE EVERY DAY CIGARETTES [facility] Sep 05, 2024 09:30 AM VA-TOBACCO USE MED NO [facility] Sep 08, 2023 10:30 AM VA-TOBACCO USE 30 YEARS OR MORE [facility] Sep 08, 2023 10:30 AM VA-TOBACCO USE ADVICE [facility] Sep 08, 2023 10:30 AM VA-TOBACCO USE MILLWRIGHT HELPER NO [facility] Sep 08, 2023 10:30 AM VA-TOBACCO USE MED NO [facility] Sep 08, 2023 10:30 AM VA-TOBACCO USE WI 30 MIN OF WAKEUP [facility] Sep 08, 2023 10:30 AM VA-TOBACCO USER EVERY DAY [facility] August 23, 2022 08:30 AM VA-TOBACCO USE 30 YEARS OR MORE [facility] August 23, 2022 08:30 AM VA-TOBACCO USE ADVICE [facility] August 23, 2022 08:30 AM VA-TOBACCO USE MILLWRIGHT HELPER NO [facility] August 23, 2022 08:30 AM VA-TOBACCO USE MED NO [facility] August 23, 2022 08:30 AM VA-TOBACCO USE WI 30 MIN OF [facility] August 23, 2022 08:30 AM VA-TOBACCO USER EVERY DAY [facility] May 07, 2021 10:00 AM VA-TOBACCO USE 30 YEARS OR MORE [facility] May 07, 2021 10:00 AM VA-TOBACCO USE ADVICE [facility] May 07, 2021 10:00 AM VA-TOBACCO USE MILLWRIGHT HELPER NO [facility] May 07, 2021 10:00 AM VA-TOBACCO USE MED NO [facility] May 07, 2021 10:00 AM VA-TOBACCO USE WI 30 MIN OF [facility] May 07, 2021 10:00 AM VA-TOBACCO USER EVERY DAY [facility] May 07, 2020 01:00 PM VA-TOBACCO USE 30 YEARS OR MORE [facility] May 07, 2020 01:00 PM VA-TOBACCO USE ADVICE [facility] May 07, 2020 01:00 PM VA-TOBACCO USE MILLWRIGHT HELPER NO [facility] May 07, 2020 01:00 PM VA-TOBACCO USE MED NO [facility] May 07, 2020 01:00 PM VA-TOBACCO USE WI 30 MIN OF [facility] May 07, 2020 01:00 PM VA-TOBACCO USER EVERY DAY [facility] Feb 13, 2019 11:11 AM VA-TOBACCO USE 30 YEARS OR MORE [facility] Feb 13, 2019 11:11 AM VA-TOBACCO USE ADVICE [facility] Feb 13, 2019 11:11 AM VA-TOBACCO USE MILLWRIGHT HELPER NO [facility] Feb 13, 2019 11:11 AM VA-TOBACCO USE MED NO [facility] Feb 13, 2019 11:11 AM VA-TOBACCO USE WI 30 MIN OF [facility] Feb 13, 2019 11:11 AM VA-TOBACCO USER EVERY DAY [facility] Sep 25, 2017 04:04 PM VA-TOBACCO USE 30 YEARS OR MORE [facility] Sep 25, 2017 04:04 PM VA-TOBACCO USE ADVICE [facility] Sep 25, 2017 04:04 PM VA-TOBACCO USE MILLWRIGHT HELPER NO [facility] Sep 25, 2017 04:04 PM VA-TOBACCO USE MED NO [facility] Sep 25, 2017 04:04 PM VA-TOBACCO USE WI 30 MIN OF WAKEUP [facility] Sep 25, 2017 04:04 PM VA-TOBACCO USER EVERY DAY [facility] Sep 20, 2017 12:35 PM HF.TOBACCO COUNSELING REFUSED [facility] Jul 11, 2017 01:33 PM HF.TOBACCO COUNSELING REFUSED [facility] Jul 11, 2017 01:33 PM TOBACCO CESSATION MEDS REFUSED [facility] Jul 11, 2017 01:33 PM TOBACCO CESSATION REFERRAL REFUSED [facility] Jul 11, 2017 01:33 PM TOBACCO OFFERRED STOP SMOKING CLINIC [facility] May 05, 2017 08:20 AM HF.TOBACCO COUNSELING REFUSED [facility] Feb 01, 2017 01:03 PM HF.TOBACCO COUNSELING REFUSED [facility] Aug 29, 2016 08:43 AM HF.TOBACCO COUNSELING REFUSED 2 pk/day declined ( does not wnat to quit) [facility] Aug 29, 2016 08:43 AM TOBACCO CESSATION MEDS REFUSED [facility] Aug 29, 2016 08:43 AM TOBACCO CESSATION REFERRAL REFUSED [facility] Aug 29, 2016 08:43 AM TOBACCO OFFERRED STOP SMOKING CLINIC [facility] May 23, 2016 09:59 AM HF.TOBACCO COUNSELING REFUSED [facility] Feb 29, 2016 09:30 AM HF.TOBACCO COUNSELING REFUSED [facility] Aug 26, 2015 06:35 AM HF.TOBACCO COUNSELING REFUSED [facility] Aug 26, 2015 06:35 AM TOBACCO CESSATION MEDS REFUSED [facility] Aug 26, 2015 06:35 AM TOBACCO CESSATION REFERRAL REFUSED [facility] Aug 26, 2015 06:35 AM TOBACCO OFFERRED PT MEDS (PROVIDER) [facility] Aug 26, 2015 06:35 AM TOBACCO OFFERRED STOP SMOKING CLINIC [facility] Advance Directives: All historical and current Section Date Range: From patient's date of to the date document was created. This section includes ALL of a patient's completed or amended [place] Advance and Rescinded Directives. The entries below indicate that a directive exists for the patient, but an actual copy is not included with this document. The data comes from all [place] facilities. Date Advance Directives Provider Source August 13, 2013 ADVANCE DIRECTIVE MARITA SANDERS [facility] Oct 13, 1998 ADVANCE DIRECTIVE Jessica YOST [facility] Mar 14, 1994 ADVANCE DIRECTIVE YUMIKO HOLMAN [facility] Encounter Notes: All associated encounter notes This section contains the clinical notes associated to the Encounter. Date/Time Encounter Note(s) Provider Source Sep 05, 2024 09:29 AM PRIMARY CARE NOTE: LOCAL TITLE: [place]/MEDICAL CLINIC STANDARD TITLE: PRIMARY CARE NOTE DATE OF NOTE: SEP 05, 2024@09:29 ENTRY DATE: SEP 05, 2024@09:29:25 AUTHOR: DRE CONTRERAS EXP COSIGNER: URGENCY: STATUS: COMPLETED CHIEF COMPLAINT: Routine appt for problems listed below. HISTORY OF PRESENT ILLNESS: Nursing notes reviewed. This is a 68 year-old being seen today for above reason. abscess on buttock/sebacous cyst - seen surgeon. Repeat abx on 08/18 by us. Finished abx yesterday. No ddrainge at this time. leg cramps - on MgOx. Med dod does help. CKD - last creat was 1.40 with eGFR 54. Advised to push fluids and avoid NSAIDS. COPD - mometasone, albuterol, and oldaterol/tiotropium. Breathign is stable. Using inhalers regularly. ventricular arrythmia - seen transportation coordinator. Has pacemaker. ON amiodarone and metoprolol. No cardiac symtmoms at this time. CAD, CHF - last EF 29%. ON ASA, BB, Lasix, lisinopril. No chest pain, SOB, LE edema, orthopoonea, or PND. BPH - on doxazosin. Reports urnating ok with med. HTN - on lisinopril, metoprolol, Lasix, and doxazosin. BP is good today. GERD - on omeprazole. Quit taking med. No heartburn without med. TAking proobiotic whcih he thinks helps. hyperlipidemia- on pravastatin and zetia. Will check labs at next appt. DM2 - diet only. Last HbA1c was 6.2%. Last eye exam was 11/17 nonVA. Advised to see eye doctor again. anemia - last H/H was 12.3/38.5 with normal iron and low normal ferritin. This is better than previous labs. colon polyp - last colonoscopy was 12/15 with f/up in 3 years. He declines to do colonoscopy. PAST MEDICAL HISTORY: Medications: As listed in chart and reviewed. Allergies: ROSUVASTATIN, SIMVASTATIN, FERROUS SULFATE, SPIRONOLACTONE, ATORVASTATIN CILOSTAZOL >>Non-VA provider(s): card, vascular, renal, endo, eye doctor SOCIAL HISTORY: Habits (Y/N): [ y] Tabacco [n ] Alcohol use [n ] Illicit drug [...] pain. Skin: No rash or skin lesions. See HPI. Neurologic: No headache, dizziness, numbness, tingling, weakness. Psychoogical: No depressive or anxiety symptoms. No suicidal ideation. OBJECTIVE: Vital signs: DATE/TIME TEMP PULSE RESP BP PAIN WT (LB) P OX 09/05/24 @ 0917 97.9 66 16 131/72 1 238.6 94 Physical Exam: General: NAD. Awake, alert, oriented x3. Heart: RRR. No murmurs, gallops, rubs. Lungs: CTAB without crackles, rhonchi, or wheeze. Abdomen: Pos bowel sounds, soft, non-distended. No tenderness, guarding, rebound. No HSM. Extremities: No clubbing, cyanosis, edema. Skin: cyst of left medial buttock is clear without redness, drainage, enduration. Psychiatric: Pleasant, cooperative. Affect is full and mood congruent. Labs: [x ] Reviewed with patient from 08/27/24. ASSESSMENT/PLAN: 1. sebacous cyst - this has resolved at this time. 2. leg cramps - med does help, continui 3. chronic kidney disease - stable, push fluuids, advoid NSAIDs, monitor labs 4. chronic obstructive pulmonary disease- breathing is stable, continue inhalers 5. ventricular arrhythmia - stable, continue meds and follow up with transportation coordinator 6. coronary artery disease, congestive heart fialure - cliically stable, conntinue meds, follow up with transportation coordinator 7. benign prostatic hyptrophhy - med does help, continue 8. hypertension - blood pressure ok, conitnue meds 9. gastroepshgoeal reflux disease- stopped med and no heartburn off med 10. hyperlipdiemia - continue med and diet, check labs at next appt 11. diabetes mellitus type 2 - stable with diet alone. See eye doctor. [place] labs 12 anemia - improved. Monitor labs Follow-up: 6 months [x ] Get labs [...] to clinic as planned or as needed. Tobacco Use Follow-Up: Patient was advised to stop smoking and/or using other tobacco products. Advised patient that a combination of behavioral counseling and FDA-approved cessation medications is the most effective way to ensure their success in stopping to smoke and/or using other tobacco products. The patient was not interested in additional information about behavioral counseling and other support strategies discussed. Informed patient that medications can help with cravings and withdrawal symptoms, and they greatly increase the chances of successfully stopping your tobacco use. The patient was not interested in a prescription for tobacco cessation medications. PC-MEDICATION RECONCILIATION: The following medication list was reviewed with the patient/caregiver: MRT5 - Allergies/ADRs FACILITY ALLERGY/ADR -------- [facility] ATORVASTATIN [facility] CILOST[facility] FERROUS SULFATE [facility] SPIRON[facility] [place] FERROUS SULFATE [facility] [place] ROSUVASTATIN [facility] [place] SIMVASTATIN MRR1 - Med Reconciliation INCLUDED IN THIS LIST: Alphabetical list of active outpatient prescriptions dispensed from this [place] (local) and dispensed from another [place] or [facility] facility (remote) as well as inpatient orders (local pending and active), local clinic medications, locally documented non-VA medications, and local prescriptions that have or been discontinued in the past 90 days. Non-VA Meds Last Documented On: May 15, 2019 NOTE The display of VA prescriptions dispensed from another [place] or [facility] facility (remote) is limited to active outpatient prescription entries matched to National Drug File at the originating site and may not include some items such as investigational drugs, compounds, etc. NOT INCLUDED IN THIS LIST: Medications self-entered by the patient into personal health records (i.e. [employer]) are NOT included in this list. Non-VA medications documented outside this [place], remote inpatient orders (regardless of status) and remote clinic medications are NOT included in this list. The patient and provider must always discuss medications the patient is taking, regardless of where the medication was dispensed or obtained. OUTPT ACETAMINOPHEN 500MG TAB (Status = Active) TAKE TWO TABLETS BY MOUTH FOUR TIMES A DAY NEEDED FOR PAIN OR FEVER - DO NOT EXCEED 4000MG OF ACETAMINOPHEN (APAP) PER DAY FROM ANY AND ALL SOURCES NO MORE THAN 6 TABLETS PER DAY. Rx# [id number] Last Released: 09/03/24 Qty/Days Supply: Rx Expiration Date: 01/17/25 Refills Remainin Indication: FOR PAIN OUTPT ALBUTEROL 90MCG (CFC-F) 200D ORAL INHL (Status = Active) INHALE 2 PUFFS BY MOUTH FOUR TIMES A DAY NEEDED FOR BREATHING Rx# [id number] Last Released: 09/11/23 Qty/Days Supply: 04/25 Rx Expiration Date: 09/08/24 Refills Remainin OUTPT ALBUTEROL SO4 0.083% INHL 3ML (Status = ) INHALE 3 ML VIA NEBULIZER BY ORAL NEBULIZATION FOUR TIMES A DAY NEEDED Rx# [id number] Last Released: 07/25/23 Qty/Days Supply: Rx Expiration Date: 07/21/24 Refills Remainin Indication: FOR SHORTNESS OF BREATH OUTPT ALUMINUM HYDROXIDE GEL 320MG/5ML SUSP (Status = Discontinued) TAKE 15 ML BY MOUTH FOUR TIMES A DAY NEEDED FOR STOMACH ACID Rx# [id number] Last Released: 05/24/24 Qty/Days Supply: Rx Expiration Date: 07/21/24 Refills Remainin OUTPT ALUMINUM HYDROXIDE GEL 320MG/5ML SUSP (Status = Active) TAKE 15 ML BY MOUTH FOUR TIMES A DAY NEEDED FOR STOMACH ACID Rx# [id number] Last Released: 06/12/24 Qty/Days Supply: 05/11 Rx Expiration Date: 06/11/25 Refills Remainin OUTPT AMIODARONE HCL (PACERONE) 200MG TAB (Status = Active) TAKE ONE TABLET BY MOUTH DAILY FOR HEART Rx# [id number] Last Released: 07/24/24 Qty/Days Supply: Rx Expiration Date: 09/08/24 Refills Remainin OUTPT AMIODARONE HCL (PACERONE) 200MG TAB (Status = Pending) TAKE ONE TABLET BY MOUTH DAILY FOR HEART Renewed from Rx# [id number] Qty/Days Supply: Login Date: 09/05/24 Refills Ordered: 3 OUTPT ASPIRIN 81MG CHEW TAB (Status = Active) CHEW ONE TABLET BY MOUTH EVERY DAY FOR BLOOD THINNER Rx# [id number] Last Released: 08/08/24 Qty/Days Supply: Rx Expiration Date: 09/08/24 Refills Remainin OUTPT ASPIRIN 81MG CHEW TAB (Status = Pending) CHEW ONE TABLET BY MOUTH EVERY DAY FOR BLOOD THINNER Renewed from Rx# [id number] Qty/Days Supply: Login Date: 09/05/24 Refills Ordered: 3 Non-VA COENZYME Q10 CAP/TAB TAKE ONE CAPSULE BY MOUTH OUTPT DOCUSATE NA 100MG CAP (Status = Active) TAKE ONE CAPSULE BY MOUTH DAILY Rx# [id number] Last Released: 04/18/24 Qty/Days Supply: Rx Expiration Date: 11/14/24 Refills Remainin Indication: FOR STOOL SOFTENER OUTPT DOXAZOSIN MESYLATE 4MG TAB (Status = ) TAKE ONE TABLET BY MOUTH AT BEDTIME FOR PROSTATE DOSE REDUCTION Rx# [id number] Last Released: 04/23/24 Qty/Days Supply: Rx Expiration Date: 08/09/24 Refills Remainin Indication: FOR PROSTATE OUTPT DOXAZOSIN MESYLATE 4MG TAB (Status = Pending) TAKE ONE TABLET BY MOUTH AT BEDTIME FOR PROSTATE DOSE REDUCTION Renewed from Rx# [id number] Qty/Days Supply: Login Date: 09/05/24 Refills Ordered: 3 OUTPT EZETIMIBE 10MG TAB (Status = Active) TAKE ONE TABLET BY MOUTH EVERY DAY FOR LOWERING CHOLESTEROL Rx# [id number] Last Released: 03/18/24 Qty/Days Supply: Rx Expiration Date: 09/08/24 Refills Remainin OUTPT FEXOFENADINE HCL 180MG TAB (Status = Active) TAKE ONE TABLET BY MOUTH DAILY FOR ALLERGIES Rx# [id number] Last Released: 09/03/24 Qty/Days Supply: Rx Expiration Date: 06/20/25 Refills Remainin Indication: FOR ALLERGIES OUTPT FLUTICASONE PROP 50MCG 120D NASAL INHL (Status = Active) INSTILL 2 SPRAYS IN EACH NOSTRIL DAILY FOR NASAL ALLERGIES Rx# [id number] Last Released: 08/30/24 Qty/Days Supply: 04/25 Rx Expiration Date: 06/20/25 Refills Remainin Indication: FOR NASAL ALLERGIES OUTPT FUROSEMIDE 40MG TAB (Status = Active) TAKE ONE TABLET BY MOUTH DAILY FOR BLOOD PRESSURE/WATER PILL Rx# [id number] Last Released: 08/28/24 Qty/Days Supply: Rx Expiration Date: 09/08/24 Refills Remainin OUTPT GABAPENTIN 600MG TAB (Status = ) TAKE ONE TABLET BY MOUTH TWICE A DAY FOR PAIN/NEUROPATHY Rx# [id number] Last Released: 06/06/24 Qty/Days Supply: 180/ Rx Expiration Date: 07/21/24 Refills Remainin OUTPT GABAPENTIN 600MG TAB (Status = Pending) TAKE ONE TABLET BY MOUTH TWICE A DAY FOR PAIN/NEUROPATHY Renewed from Rx# [id number] Qty/Days Supply: 180/ Login Date: 09/05/24 Refills Ordered: 3 OUTPT LACTOBACILLUS ACIDOPHILUS CAP (Status = Pending) ACIDOPHILUS CAP TAKE 1 CAPSULE BY MOUTH DAILY Login Date: 09/05/24 Qty/Days Supply: 90/ Refills Ordered: 3 OUTPT LACTULOSE 10GM/15ML ORAL SOLN (Status = Active/Suspended) TAKE 15 ML BY MOUTH TWICE A DAY FOR CONSTIPATION Rx# [id number] Last Released: 08/08/24 Qty/Days Supply: 480/30 Rx Expiration Date: 04/30/25 Refills Remainin Indication: FOR CONSTIPATION OUTPT LISINOPRIL 5MG TAB (Status = Discontinued) TAKE ONE TABLET BY MOUTH DAILY FOR BLOOD PRESSURE Rx# [id number] Last Released: 06/17/24 Qty/Days Supply: 90 Rx Expiration Date: 09/08/24 Refills Remainin OUTPT LISINOPRIL 5MG TAB (Status = Active/Suspended) TAKE ONE TABLET BY MOUTH DAILY FOR BLOOD PRESSURE Rx# [id number] Last Released: QtDays Supply: 90 Rx Expiration Date: 09/03/25 Refills Remainin OUTPT MAGNESIUM OXIDE 400MG TAB (Status = Active) TAKE ONE TABLET BY MOUTH DAILY WITH FOOD Rx# [id number] Last Released: 08/06/24 Qty/Days Supply: 120/90 Rx Expiration Date: 09/08/24 Refills Remainin Indication: FOR MAGNESIUM REPLACEMENT OUTPT MENTHOL/M-SALICYLATE 10-15% TOP CREAM (Status = Discontinued) APPLY SMALL AMOUNT TOPICALLY NEEDED Rx# [id number] Last Released: 03/11/24 Qty/Days Supply: 90/30 Rx Expiration Date: 03/08/25 Refills Remainin Indication: FOR SORE MUSCLES OR JOINTS OUTPT MENTHOL/M-SALICYLATE 10-15% TOP CREAM (Status = Active) APPLY SMALL AMOUNT TOPICALLY EVERY DAY NEEDED FOR SORE MUSCLES OR JOINTS Rx# [id number] Last Released: 07/04/24 Qty/Days Supply: Rx Expiration Date: 07/04/25 Refills Remainin Indication: FOR SORE MUSCLES OR JOINTS OUTPT METOPROLOL SUCCINATE 50MG SA TAB (Status = ) TAKE ONE TABLET BY MOUTH EVERY DAY Rx# [id number] Last Released: 07/31/24 Qty/Days Supply: Rx Expiration Date: 08/09/24 Refills Remainin OUTPT METOPROLOL SUCCINATE 50MG SA TAB (Status = Pending) TAKE ONE TABLET BY MOUTH EVERY DAY Renewed from Rx# [id number] Qty/Days Supply: Login Date: 09/05/24 Refills Ordered: 3 OUTPT MOMETASONE 200MCG/ACTUAT 120D ORAL INHL (Status = Active) INHALE TWO PUFFS BY MOUTH TWICE A DAY RINSE MOUTH AFTER EACH USE Rx# [id number] Last Released: 06/04/24 Qty/Days Supply: 04/25 Rx Expiration Date: 09/08/24 Refills Remainin OUTPT MONTELUKAST NA 10MG TAB (Status = Active) TAKE ONE TABLET BY MOUTH EVERY DAY Rx# [id number] Last Released: 05/27/24 Qty/Days Supply: Rx Expiration Date: 12/18/24 Refills Remainin OUTPT MONTELUKAST NA 10MG TAB (Status = Pending) TAKE ONE TABLET BY MOUTH EVERY DAY Renewed from Rx# [id number] Qty/Days Supply: Login Date: 09/05/24 Refills Ordered: 3 OUTPT MULTIVITAMIN CAP/TAB (Status = Active) TAKE 1 CAP/TAB BY MOUTH DAILY SUPPLEMENT Rx# [id number] Last Released: 08/28/24 Qty/Days Supply: Rx Expiration Date: 09/08/24 Refills Remainin OUTPT OLODATEROL/TIOTROP 2.5MCG/ACTUAT 60D INH (Status = Discontinued) INHALE 2 PUFFS BY MOUTH EVERY DAY Rx# [id number] Last Released: 05/28/24 Qty/Days Supply: Rx Expiration Date: 12/18/24 Refills Remainin OUTPT OLODATEROL/TIOTROP 2.5MCG/ACTUAT 60D INH (Status = Active) INHALE 2 PUFFS BY MOUTH EVERY DAY Rx# [id number] Last Released: 09/03/24 Qty/Days Supply: Rx Expiration Date: 06/18/25 Refills Remainin OUTPT OMEPRAZOLE 40MG EC CAP (Status = Discontinued) TAKE ONE CAPSULE BY MOUTH EVERY MORNING 30 MINUTES BEFORE BREAKFAST Rx# [id number] Last Released: 08/22/24 Qty/Days Supply: Rx Expiration Date: 03/08/25 Refills Remainin Indication: FOR STOMACH ACID OUTPT PRAVASTATIN NA 20MG TAB (Status = Active) TAKE ONE-HALF TABLET BY MOUTH SUNDAYS, MONDAYS, WEDNESDAYS AND FRIDAYS FOR CHOLESTEROL. CALL YOUR PROVIDER IF YOU HAVE MUSCLE PAIN, TENDERNESS OR WEAKNESS Rx# [id number] Last Released: 03/22/24 Qty/Days Supply: Rx Expiration Date: 09/08/24 Refills Remainin Indication: FOR CHOLESTEROL OUTPT VITAMIN B COMPLEX CAP (Status = Active) TAKE ONE CAPSULE BY MOUTH DAILY Rx# [id number] Last Released: 03/22/24 Qty/Days Supply: Rx Expiration Date: 09/08/24 Refills Remainin SUPPLIES OUTPT ACCU-CHEK GUIDE (GLUCOSE) TEST STRIP (Status = Active) USE ONE STRIP THREE TIMES WEEKLY FOR BLOOD GLUCOSE MONITORING (STORE IN ORIGINAL BOTTLE WITH LID ON AT ALL TIMES) Rx# [id number] Last Released: 04/18/24 Qty/Days Supply: 5030 Rx Expiration Date: 03/08/25 Refills Remainin OUTPT ALCOHOL PREP PAD (Status = Active) USE PAD TO SUPPLY DIRECTED Rx# [id number] Last Released: 03/08/24 Qty/Days Supply: 200/30 Rx Expiration Date: 03/08/25 Refills Remainin Potential risks, benefits, and alternative to medications prescribed were discussed with Indore/caregiver who was given an opportunity to ask questions, which were answered to the best of my ability and seemingly to their satisfaction. Indore/caregiver was/were instructed to contact provider (means provided) with any concerns or questions. A list of reconciled medications was provided to the /caregiver. /loli/ Dre Contreras M.D. 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 Alcohol Use Screen (AUDIT-C): Alcohol Screen: SCREEN FOR ALCOHOL (AUDIT-C) An alcohol screening test (AUDIT-C) was negative (score=0). 1. How often did you have a drink containing alcohol in the past year? Consider a drink to be a 12 ounce can or bottle of regular beer, 8 ounces of malt liquor, a 5 ounce glass of table wine, or a 1.5 ounce shot of liquor (like scotch, gin, or vodka). Never 2. How many drinks containing alcohol did you have on a typical day when you were drinking in the past year? Response not required due to responses to other questions. 3. How often did you have six or more drinks on one occasion in the past year? Response not required due to responses to other questions. Depression Screening: Perform PHQ-2 A PHQ-2 screen was performed. The score was 0 which is a negative screen for depression. Over the past two weeks, how often have you been bothered by the following problems? 1. Little interest or pleasure in doing things Not at all 2. 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 The reports no use of a wheelchair for mobility at least 75% of the time. Tobacco Use Screening: The patient smokes cigarettes every day. The patient states they have smoked for the following number of years: # of years 40 Average number of packs/day over the entire time patient smoked: Packs/day 1 The patient has never used other types of tobacco. Herpes Zoster (Shingles) Vaccine: The patient declines to receive the recommended dose of zoster (shingles) vaccine. Immunization: ZOSTER RECOMBINANT Refusal Reason: PATIENT DECISION Patient refuses all immunization(s) in the ZOSTER group Date Documented: 09/05/24 09:27 Pneumococcal PPSV23 (Pneumovax): Refuses PCV vaccine Immunization: PNEUMOCOCCAL CONJUGATE, UNSPECIFIED FORMULATION Refusal Reason: PATIENT DECISION Patient refuses all immunization(s) in the PneumoPCV group Date Documented: 09/05/24 09:27 Stress: Indore reports nothing in the last 6 months that has caused worry or stress. COVID-19 Immunization: Referred to another clinic for immunization (desired vaccine unavailable at this location) RSV Immunization: Respiratory Syncytial Virus (RSV) Vaccine: Refused [employer] (RSV vaccine, adjuvanted, Arexvy). Immunization: RSV, RECOMBINANT, PROTEIN SUBUNIT RSVPREF3, ADJUVANT RECONSTITUTED, 0.5 ML, PF Refusal Reason: PATIENT DECISION Patient refuses all immunization(s) in the RSV group Date Documented: 09/05/24 09:27 /loli/ ZACK HOOKER casting house worker Signed: 09/05/2024 09:28 ZACK HOOKER [facility]
--- OUTSIDE RECORDS SUMMARY | 2024-09-07 11:16 | XMS_ITS | Encounter Summary ---
Author Name [facility] [place] [facility] [place] Address [address] [place] [address] Care Team Providers Care Beer Brewer Name Role Phone DANNY CONTRERAS Primary Care Provider Unavailabl e Selected Encounter This section includes the information on record at [place] for the Encounter. Date/Time Encounter Type Encounter Description Reason Provider Source Jul 03, 2024 09:30 AM TRIM NAIL(S) ANY NUMBER PODIATRY ICD-10-CM Z71.89 Other specified counseling ROSALVA LI [facility] Encounter Template Text not used by [place] Assessments - Encounter Diagnoses This section includes the primary and secondary diagnoses documented for the Encounter. Date/Time Primary/Secondary Diagnosis Diagnosis Name Provider Source Jul 03, 2024 02:56 PM PRIMARY Other specified counseling ROSALVA LI [facility] Plan of Treatment: Future Appointments (+ 6 months) and Future Tests (+/- 45 days) The Plan of Treatment section includes future care activities for the patient from all [place] treatmentfacilities. This section includes future appointments and future orders which are active, pending or scheduled. Future Appointments This section includes appointments that were scheduled to occur 6 months from the date of the Encounter, up to a maximum of 20 appointments. The data comes from all [place] treatment facilities. Appointment Date/Time Appointment Type Appointme nt Facility Name Jul 16, 2024 10:15 AM AMBULATORY - NONE [facility] August 14, 2024 10:30 AM AMBULATORY - NONE [facility] August 22, 2024 08:30 AM AMBULATORY - NONE [facility] Aug 27, 2024 09:10 AM AMBULATORY - NONE [facility] Aug 27, 2024 01:00 PM AMBULATORY - REHAB MEDICIN E [facility] Sep 05, 2024 09:30 AM AMBULATORY - MEDICINE [facility] Sep 10, 2024 09:45 AM AMBULATORY - NONE [facility] Oct 23, 2024 10:00 AM [facility] Oct 23, 2024 10:05 AM AMBULATORY - NONE [facility] Active, Pending, and Scheduled Orders This section includes a listing of several types of active, pending, and scheduled orders, including clinic medications orders, diagnostic test orders, procedure orders and consult orders; where the start date of the order is 45 days before the date of the Encounter or 45 days after the date of theEncounter. The data comes from all [place] treatment facilities. Test Date/Time Test Type Test Details Facility Name Jun 20, 2024 07:58 AM Consult Order [facility]ITY [facility]ARE-ENDOCRINOLOGY Cons [employer] Handicapper[employer] Choice [facility] Social History: Smoking Status (Most current) and Tobacco Use (All prior to encounter date) This section includes the most current, and the historical, smoking and tobacco- related health factors from the [place] facility where the Encounter took place. Current Smoking Status This section includes the most current smoking, or tobacco-related health factor, from the [place] facility where the Encounter took place. Date/Time Current Smoking Status Comment Melissa loja Sep 08, 2023 10:30 AM VA-TOBACCO USER EVERY DAY [facility] Tobacco Use History This section includes a history of the smoking, or tobacco-related health factors, that were collected on or before the date of the Encounter. The data comes from the [place] facility where the Encounter took place. Date/Time Smoking Status/Tobac co Use Comment Facility Sep 08, 2023 10:30 AM VA-TOBACCO USE ADVICE [facility] Sep 08, 2023 10:30 AM VA-TOBACCO USE GROCERY CLERK STOCKING NO [facility] Sep 08, 2023 10:30 AM VA-TOBACCO USE MED NO [facility] Sep 08, 2023 10:30 AM VA-TOBACCO USE [place] 30 MIN OF WAKEUP [facility] Sep 08, 2023 10:30 AM VA-TOBACCO USER EVERY DAY [facility] August 23, 2022 08:30 AM VA-TOBACCO USE 30 YEARS OR MORE [facility] August 23, 2022 08:30 AM VA-TOBACCO USE ADVICE [facility] August 23, 2022 08:30 AM VA-TOBACCO USE GROCERY CLERK STOCKING NO [facility] August 23, 2022 08:30 AM VA-TOBACCO USE MED NO [facility] August 23, 2022 08:30 AM VA-TOBACCO [place] [address] [facility] August 23, 2022 08:30 AM VA-TOBACCO USER EVERY DAY [facility] May 07, 2021 10:00 AM VA-TOBACCO USE 30 YEARS OR MORE [facility] May 07, 2021 10:00 AM VA-TOBACCO USE ADVICE [facility] May 07, 2021 10:00 AM VA-TOBACCO USE GROCERY CLERK STOCKING NO [facility] May 07, 2021 10:00 AM VA-TOBACCO USE MED [facility] May 07, 2021 10:00 AM VA-TOBACCO [place] [address] [facility] May 07, 2021 10:00 AM VA-TOBACCO USER EVERY DAY [facility] May 07, 2020 01:00 PM VA-TOBACCO USE 30 YEARS OR MORE [facility] May 07, 2020 01:00 PM VA-TOBACCO USE ADVICE [facility] May 07, 2020 01:00 PM VA-TOBACCO USE GROCERY CLERK STOCKING NO [facility] May 07, 2020 01:00 PM VA-TOBACCO USE MED NO [facility] May 07, 2020 01:00 PM VA-TOBACCO USE [place] [address] [facility] May 07, 2020 01:00 PM VA-TOBACCO USER EVERY DAY [facility] Feb 13, 2019 11:11 AM VA-TOBACCO USE 30 YEARS OR MORE [facility] Feb 13, 2019 11:11 AM VA-TOBACCO USE ADVICE [facility] Feb 13, 2019 11:11 AM VA-TOBACCO USE GROCERY CLERK STOCKING NO [facility] Feb 13, 2019 11:11 AM VA-TOBACCO USE MED NO [facility] Feb 13, 2019 11:11 AM VA-TOBACCO USE [place] [address] [facility] Feb 13, 2019 11:11 AM VA-TOBACCO USER EVERY DAY [facility] Sep 25, 2017 04:04 PM VA-TOBACCO USE 30 YEARS OR MORE [facility] Sep 25, 2017 04:04 PM VA-TOBACCO USE ADVICE [facility] Sep 25, 2017 04:04 PM VA-TOBACCO USE GROCERY CLERK STOCKING NO [facility] Sep 25, 2017 04:04 PM VA-TOBACCO USE MED NO [facility] Sep 25, 2017 04:04 PM VA-TOBACCO USE [place] [address] [facility] Sep 25, 2017 04:04 PM VA-TOBACCO USER EVERY DAY [facility] Sep 20, 2017 12:35 PM HF.TOBACCO COUNSELING REFUSED [facility] Jul 11, 2017 01:33 PM HF.TOBACCO COUNSELING REFUSED [facility] Jul 11, 2017 01:33 PM TOBACCO CESSATION MEDS REFUSED [facility] Jul 11, 2017 01:33 PM TOBACCO CESSATION REFERRAL REFUSED [facility] Jul 11, 2017 01:33 PM TOBACCO OFFERRED STOP SMOKING CLINIC [facility] May 05, 2017 08:20 AM HF.TOBACCO COUNSELING REFUSED [facility] Feb 01, 2017 01:03 PM HF.TOBACCO COUNSELING REFUSED [facility] Aug 29, 2016 08:43 AM HF.TOBACCO COUNSELING REFUSED 2 pk/day declined ( does not wnat to quit) [facility] Aug 29, 2016 08:43 AM TOBACCO CESSATION MEDS REFUSED [facility] Aug 29, 2016 08:43 AM TOBACCO CESSATION REFERRAL REFUSED [facility] Aug 29, 2016 08:43 AM TOBACCO OFFERRED STOP SMOKING CLINIC [facility] May 23, 2016 09:59 AM HF.TOBACCO COUNSELING REFUSED [facility] Feb 29, 2016 09:30 AM HF.TOBACCO COUNSELING REFUSED [facility] Aug 26, 2015 06:35 AM HF.TOBACCO COUNSELING REFUSED [facility] Aug 26, 2015 06:35 AM TOBACCO CESSATION MEDS REFUSED [facility] Aug 26, 2015 06:35 AM TOBACCO CESSATION REFERRAL REFUSED [facility] Aug 26, 2015 06:35 AM TOBACCO OFFERRED PT MEDS (PROVIDER) [facility] Aug 26, 2015 06:35 AM TOBACCO OFFERRED STOP SMOKING CLINIC [facility] Advance Directives: All historical and current Section Date Range: From patient's date of to the date document was created. This section includes ALL of a patient's completed or amended [place] Advance and Rescinded Directives. The entries below indicate that a directive exists for the patient, but an actual copy is not included with this document. The data comes from all [place] facilities. Date Advance Directives Provider Source August 13, 2013 ADVANCE DIRECTIVE MARITA SANDERS [facility] Oct 13, 1998 ADVANCE DIRECTIVE Jessica YOST Louann [facility] Mar 14, 1994 ADVANCE DIRECTIVE MANDAYUMIKO [facility] Encounter Notes: All associated encounter notes This section contains the clinical notes associated to the Encounter. Date/Time Encounter Note(s) Provider Source Jul 04, 2024 10:23 AM ADDENDUM: LOCAL TITLE: Addendum STANDARD TITLE: ADDENDUM DATE OF NOTE: JUL 04, 2024@10:23:27 ENTRY DATE: JUL 04, 2024@10:23:28 AUTHOR: LIN GAY EXP COSIGNER: URGENCY: STATUS: COMPLETED PLEASE SCHEDULE SPR CVT POD 10/23/24 AT 0930 /loli/ LIN GAY LPN Signed: 07/04/2024 10:24 Receipt Acknowledged By: 07/09/2024 06:59 /es/ CHAPARRO QUEVEDOBY [employer] OFFICER 07/09/2024 07:54 /loli/ ASIA ALEXANDRE ADVANCED COMM[employer] OFFICER 07/08/2024 15:34 /es/ ANDI GOSS AMSA ========= --- Original Document --- 07/03/24 CVT PODIATRY: Patient is here today for scheduled toe nail trim and evaluation by media sales representative with [facility]. Patient gave verbal consent for CVT encounter. Brief history, patient reports: Please see provider notes. Sex: MALE Age:68 Patient lives with: -VITAL SIGNS- TEMPERATURE - NONE FOUND - 1D PULSE - NONE FOUND - 1D RESPIRATION - NONE FOUND - 1D BLOOD PRESSURE - NONE FOUND - 1D WEIGHT - NONE FOUND - 1D HEIGHT: 68 in [172.7 cm] (05/23/2016 09:56) BMI: BMI: - NO HEIGHTS FOUND PULSE OXIMETRY - NONE FOUND - 1D Room Air PAIN - NONE FOUND - 1D level today /loli/ Rosalva Li RN RN Signed: 07/03/2024 15:12 LIN GAY [facility] Jul 03, 2024 09:46 AM TELEHEALTH NOTE: LOCAL TITLE: CVT PODIATRY STANDARD TITLE: TELEHEALTH NOTE DATE OF NOTE: JUL 03, 2024@09:46 ENTRY DATE: JUL 03, 2024@09:47:05 AUTHOR: ROSALVA LI EXP COSIGNER: URGENCY: STATUS: COMPLETED CVT PODIATRY Has ADDENDA Patient is here today for scheduled toe nail trim and evaluation by media sales representative with [facility]. Patient gave verbal consent for CVT encounter. Brief history, patient reports: Please see provider notes. Sex: MALE Age:68 Patient lives with: -VITAL SIGNS- TEMPERATURE - NONE FOUND - 1D PULSE - NONE FOUND - 1D RESPIRATION - NONE FOUND - 1D BLOOD PRESSURE - NONE FOUND - 1D WEIGHT - NONE FOUND - 1D HEIGHT: 68 in [172.7 cm] (05/23/2016 09:56) BMI: BMI: - NO HEIGHTS FOUND PULSE OXIMETRY - NONE FOUND - 1D Room Air PAIN - NONE FOUND - 1D level today /loli/ Rosalva Li RN RN Signed: 07/03/2024 15:12 07/04/2024 ADDENDUM STATUS: COMPLETED PLEASE SCHEDULE SPR CVT POD 10/23/24 AT 0930 /loli/ LIN GAY LPN Signed: 07/04/2024 10:24 Receipt Acknowledged By: * AWAITING SIGNATURE * CHAPARRO WREN * AWAITING SIGNATURE * ASIA ALEXANDRE * AWAITING SIGNATURE * ANDI GOSS CAROLYNN S [facility]
--- OUTSIDE RECORDS SUMMARY | 2024-09-07 11:16 | XMS_ITS | Encounter Summary ---
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 Date/Time Encounter Type Encounter Description Reason Provider Source Jun 19, 2024 01:30 PM OFFICE O/P EST MOD 30 MIN PRIMARY CARE/MEDICINE ICD-10-CM I25.9 Chronic ischemic heart disease, unspecified DRE CONTRERAS Manjinder Encounter Template Text not used by [place] Assessments - Encounter Diagnoses This section includes the primary and secondary diagnoses documented for the Encounter. Date/Time Primary/Secondary Diagnosis Diagnosis Name Provider Source Jun 19, 2024 01:54 PM PRIMARY Chronic ischemic heart disease, unspecified DRE CONTRERAS [facility] Jun 19, 2024 01:54 PM SECONDARY Allergic rhinitis, unspecified [facility] Jun 19, 2024 01:54 PM SECONDARY Autonomic neuropathy in diseases classified elsewhere [facility] Jun 19, 2024 01:54 PM SECONDARY Ischemic cardiomyopathy [facility] Jun 19, 2024 01:54 PM SECONDARY Pulsatile tinnitus, bilateral [facility] Jun 19, 2024 01:54 PM SECONDARY Vertebrogenic low back pain BENDRE GARG [facility] Plan of Treatment: Future Appointments (+ 6 months) and Future Tests (+/- 45 days) The Plan of Treatment section includes future care activities for the patient from [facility] This section includes future appointments and future orders which are active, pending or scheduled. Future Appointments This section includes appointments that were scheduled to occur 6 months from the date of the Encounter, up to a maximum of 20 appointments. The data comes from all [facility]. Appointment Date/Time Appointment Type Appointme nt Facility Name Jul 03, 2024 09:30 AM AMBULATORY - SURGERY [facility] Jul 03, 2024 09:35 AM AMBULATORY - NONE [facility]ON [facility] Jul 03, 2024 11:00 AM AMBULATORY - NONE [facility] Jul 16, 2024 10:15 AM AMBULATORY - NONE [facility] August 14, 2024 10:30 AM AMBULATORY - NONE [facility] August 22, 2024 08:30 AM AMBULATORY - NONE [facility] Aug 27, 2024 09:10 AM AMBULATORY - NONE [facility] Aug 27, 2024 01:00 PM AMBULATORY - REHAB MEDICIN E [facility] Sep 05, 2024 09:30 AM AMBULATORY - MEDICINE [facility] Sep 10, 2024 09:45 AM AMBULATORY - NONE [facility] Oct 23, 2024 10:00 AM AMBULATORY - SURGERY [facility] Oct 23, 2024 10:05 AM AMBULATORY - NONE [facility] Active, Pending, and Scheduled Orders This section includes a listing of several types of active, pending, and scheduled orders, including clinic medications orders, diagnostic test orders, procedure orders and consult orders; where the start date of the order is 45 days before the date of the Encounter or 45 days after the date of theEncounter. The data comes from all [facility]. Test Date/Time Test Type Test Details Facility Name Jun 20, 2024 07:58 AM Consult Order COMMUNITY CARE-ENDOCRINOLOGY Cons [facility] Vital Signs: All taken on the encounter date This section contains inpatient and outpatient Vital Signs collected on the date of the Encounter. Date/Time Temperature Pulse Blood Pressure Respiratory Rate SP02 Pain Height Weight Body Mass Index Source Jun 19, 2024 01:13 PM 130/68 [facility] Jun 19, 2024 01:13 PM 98.6 62 80/53 18 94 246.4 38 [facility] Social History: Smoking Status (Most current) and Tobacco Use (All prior to encounter date) This section includes the most current, and the historical, smoking and tobacco- related health factors from the [place] facility where the Encounter took place. Current Smoking Status This section includes the most current smoking, or tobacco-related health factor, from the [place] facility where the Encounter took place. Date/Time Current Smoking Status Comment Facil ity Sep 08, 2023 10:30 AM VA-TOBACCO USE [place] 30 MIN OF [facility] Tobacco Use History This section includes a history of the smoking, or tobacco-related health factors, that were collected on or before the date of the Encounter. The data comes from the [place] facility where the Encounter took place. Date/Time Smoking Status/Tobac co Use Comment Facility Sep 08, 2023 10:30 AM VA-TOBACCO USE ADVICE [facility] [place] Sep 08, 2023 10:30 AM VA-TOBACCO USE BOND ANALYST [facility] Sep 08, 2023 10:30 AM VA-TOBACCO USE MED [facility] [place] Sep 08, 2023 10:30 AM VA-TOBACCO USE WI 30 MIN OF [facility] Sep 08, 2023 10:30 AM VA-TOBACCO USER EVERY DAY [facility] August 23, 2022 08:30 AM VA-TOBACCO USE 30 YEARS OR MORE [facility] August 23, 2022 08:30 AM VA-TOBACCO USE ADVICE [facility] [place] August 23, 2022 08:30 AM VA-TOBACCO USE BOND ANALYST NO [facility] August 23, 2022 08:30 AM VA-TOBACCO USE MED [facility] [place] August 23, 2022 08:30 AM VA-TOBACCO USE WI 30 MIN OF [facility] August 23, 2022 08:30 AM VA-TOBACCO USER EVERY DAY [facility] May 07, 2021 10:00 AM VA-TOBACCO USE 30 YEARS OR MORE [facility] May 07, 2021 10:00 AM VA-TOBACCO USE ADVICE [facility] [place] May 07, 2021 10:00 AM VA-TOBACCO USE BOND ANALYST NO [facility] May 07, 2021 10:00 AM VA-TOBACCO USE MED [facility] [place] May 07, 2021 10:00 AM VA-TOBACCO USE [place] 30 MIN OF [facility] May 07, 2021 10:00 AM VA-TOBACCO USER EVERY DAY [facility] May 07, 2020 01:00 PM VA-TOBACCO USE 30 YEARS OR MORE [facility] May 07, 2020 01:00 PM VA-TOBACCO USE ADVICE [facility] [place] May 07, 2020 01:00 PM VA-TOBACCO USE BOND ANALYST NO [facility] May 07, 2020 01:00 PM VA-TOBACCO USE MED NO [facility] [place] May 07, 2020 01:00 PM VA-TOBACCO USE WI 30 MIN OF [facility] May 07, 2020 01:00 PM VA-TOBACCO USER EVERY DAY [facility] Feb 13, 2019 11:11 AM VA-TOBACCO USE 30 YEARS OR MORE [facility] Feb 13, 2019 11:11 AM VA-TOBACCO USE ADVICE [facility] [place] Feb 13, 2019 11:11 AM VA-TOBACCO USE BOND ANALYST NO [facility] Feb 13, 2019 11:11 AM VA-TOBACCO USE MED NO [facility] Feb 13, 2019 11:11 AM VA-TOBACCO USE WI 30 MIN OF [facility] Feb 13, 2019 11:11 AM VA-TOBACCO USER EVERY DAY [facility] Sep 25, 2017 04:04 PM VA-TOBACCO USE 30 YEARS OR MORE [facility] Sep 25, 2017 04:04 PM VA-TOBACCO USE ADVICE [facility] [place] Sep 25, 2017 04:04 PM VA-TOBACCO USE BOND ANALYST NO [facility] Sep 25, 2017 04:04 PM VA-TOBACCO USE MED NO [facility] Sep 25, 2017 04:04 PM VA-TOBACCO USE WI 30 MIN OF [facility] Sep 25, 2017 04:04 PM VA-TOBACCO USER EVERY DAY [facility] Sep 20, 2017 12:35 PM HF.TOBACCO COUNSELING REFUSED [facility] Jul 11, 2017 01:33 PM HF.TOBACCO COUNSELING REFUSED [facility] Jul 11, 2017 01:33 PM TOBACCO CESSATION MEDS REFUSED [facility] Jul 11, 2017 01:33 PM TOBACCO CESSATION REFERRAL REFUSED [facility] Jul 11, 2017 01:33 PM TOBACCO OFFERRED STOP SMOKING CLINIC [facility] May 05, 2017 08:20 AM HF.TOBACCO COUNSELING REFUSED [facility] Feb 01, 2017 01:03 PM HF.TOBACCO COUNSELING REFUSED [facility] Aug 29, 2016 08:43 AM HF.TOBACCO COUNSELING REFUSED 2 pk/day declined ( does not wnat to quit) [facility] Aug 29, 2016 08:43 AM TOBACCO CESSATION MEDS REFUSED [facility] Aug 29, 2016 08:43 AM TOBACCO CESSATION REFERRAL REFUSED [facility] Aug 29, 2016 08:43 AM TOBACCO OFFERRED STOP SMOKING CLINIC [facility] May 23, 2016 09:59 AM HF.TOBACCO COUNSELING REFUSED [facility] Feb 29, 2016 09:30 AM HF.TOBACCO COUNSELING REFUSED [facility] Aug 26, 2015 06:35 AM HF.TOBACCO COUNSELING REFUSED [facility] Aug 26, 2015 06:35 AM TOBACCO CESSATION MEDS REFUSED [facility] Aug 26, 2015 06:35 AM TOBACCO CESSATION REFERRAL REFUSED [facility] Aug 26, 2015 06:35 AM TOBACCO OFFERRED PT MEDS (PROVIDER) [facility] Aug 26, 2015 06:35 AM TOBACCO OFFERRED STOP SMOKING [facility] Advance Directives: All historical and current Section Date Range: From patient's date of to the date document was created. This section includes ALL of a patient's completed or amended [place] Advance and Rescinded Directives. The entries below indicate that a directive exists for the patient, but an actual copy is not included with this document. The data comes from all [place] facilities. Date Advance Directives Provider Source August 13, 2013 ADVANCE DIRECTIVE MARITA SANDERS [facility] Oct 13, 1998 ADVANCE DIRECTIVE Jessica YOST [facility] Mar 14, 1994 ADVANCE DIRECTIVE YUMIKO HOLMAN [facility] Encounter Notes: All associated encounter notes This section contains the clinical notes associated to the Encounter. Date/Time Encounter Note(s) Provider Source Jun 19, 2024 01:26 PM PRIMARY CARE NOTE: LOCAL TITLE: [facility] STANDARD TITLE: PRIMARY CARE NOTE DATE OF NOTE: JUN 19, 2024@13:26 ENTRY DATE: JUN 19, 2024@13:26:14 AUTHOR: DRE CONTRERAS EXP COSIGNER: URGENCY: STATUS: COMPLETED CHIEF COMPLAINT: Acute visit to fill out Aide and Attendance form. HISTORY OF PRESENT ILLNESS: Nursing notes reviewed. This is a 68 year-old being seen today for above reason. Has aide and attendance form to fill out today. wants to discuss possible allergy medication and also sinus drainage that he is having. Some rhinorrhea and nasal congestion. Pos PND. Ears fill full or plugged. POs sneeze, eyes water/itch. did see eye doctor last Monday - they adjust glasses but still having some dizziness when looking through bi-focal. ADvised bifocals can do that. If symtoms don't get better to see eye doctor again. also states that he is feeling a pulse in right ear along with tinitus. ADVsied limited treatment for tinnitus. PMHx: leg cramps, CKD, COPD, ventricular arrhythmia, CAD/CHF, BPH, HTN, GERD, hyperlipidemia, DM2, anemia, colon polyp PAST MEDICAL HISTORY: Medications: As listed in chart and reviewed. Allergies: ROSUVASTATIN, SIMVASTATIN, FERROUS SULFATE, SPIRONOLACTONE, ATORVASTATIN CILOSTAZOL >>Non-VA provider(s): card, vascular, renal, endo, derm SOCIAL HISTORY: Habits (Y/N): [ y] Tabacco [n ] Alcohol use [n ] Illicit drug use REVIEW OF SYSTEMS: General: No fever, chills, weight loss, or anorexia. No fatigue. HEENT: No visual or hearing changes. See HPI. Cardiovascular: No chest pain, palptiations, edema. Respiratory: [...] RESP BP PAIN WT (LB) P OX 06/19/24 @ 1313 130/68 06/19/24 @ 1313 98.6 62 18 246.4 94 Physical Exam: General: NAD. Awake, alert, oriented x3. Stooped posture. Slow gait. HEENT: boggy nasal mucosa with clear drainage.. Pos pharancy red but no exudate. TM intact bilat without redness or fluid. Neck: supple, no adenopathy Heart: RRR. No murmurs, gallops, rubs. Lungs: Dec BS without crackles, rhonchi, or wheeze. Abdomen: Pos bowel sounds, soft, non-distended. No tenderness, guarding, rebound. No HSM. MSK: Dec ROM of shoulders with pain, dec ROM Of bilat hips with pain. Dec ROM Of l-spine with pain on palpation of l-spine Extremities: No clubbing, cyanosis, edema. Psychiatric: Pleasant, cooperative. Affect is full and mood congruent. Labs: [ ] Reviewed with patient. ASSESSMENT/PLAN: 1. coronarty artery disease, congestive heart failure - chronic problems limits his ability to do work aroudn the house. Currently stable with meds. 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 2. chronio obstrutuctive pulmonarny disease - limits him ability to do work aroudn the house. Continue inhaler. Needs to quit smoking 3. chronic back pain - limits his ability to do work aroudn the house. 4. allergic rhinitsi- Rx fexofenodine and fluctisaone. 5. tinnitus -not much that cane be done for that 6. peripheal neruopathy - limits his ability to do work around the house Follow-up: as planned/PRN [ ] Get labs 1 week before: Total [...] to clinic as planned or as needed. PC-MEDICATION RECONCILIATION: The following medication list was reviewed with the patient/caregiver: MRT5 - Allergies/ADRs FACILITY ALLERGY/ADR -------- [facility] ATORVASTATIN [facility] CILOSTAZOL [facility] FERROUS SULFATE [facility] ROSUVASTATIN [facility] SIMVASTATIN [facility] SPIRONOLACTONE [facility] [place] FERROUS [facility]ULFATE [facility] [place] ROSUVASTATIN [facility] [place] SIMVASTATIN MRR1 - Med Reconciliation INCLUDED IN THIS LIST: Alphabetical list of active outpatient prescriptions dispensed from this [place] (local) and dispensed from another [place] or [facility] facility (remote) as well as inpatient orders (local pending and active), local clinic medications, locally documented non-VA medications, and local prescriptions that have or been discontinued in the past 90 days. Non-VA Meds Last Documented On: May 15, 2019 NOTE The display of VA prescriptions dispensed from another [place] or [facility] facility (remote) is limited to active outpatient prescription entries matched to National Drug File at the originating site and may not include some items such as investigational drugs, compounds, etc. NOT INCLUDED IN THIS LIST: Medications self-entered by the patient into personal health records (i.e. [employer]) are NOT included in this list. Non-VA medications documented outside this [place], remote inpatient orders (regardless of status) and [...] MORE THAN 6 TABLETS PER DAY. Rx# [id number] Last Released: 04/01/24 Qty/Days Supply: 200/30 Rx Expiration Date: 01/17/25 Refills Remainin Indication: FOR PAIN OUTPT ALBUTEROL 90MCG (CFC-F) 200D ORAL INHL (Status = Active) INHALE 2 PUFFS BY MOUTH FOUR TIMES A DAY NEEDED FOR BREATHING Rx# [id number] Last Released: 09/11/23 Qty/Days Supply: 04/25 Rx Expiration Date: 09/08/24 Refills Remainin OUTPT ALBUTEROL SULF 0.083% INHL 3ML (Status = Active) INHALE 3 ML VIA NEBULIZER BY ORAL NEBULIZATION FOUR TIMES A DAY NEEDED Rx# [id number] Last Released: 07/25/23 Qty/Days Supply: Rx Expiration Date: 07/21/24 Refills Remainin Indication: FOR SHORTNESS OF BREATH OUTPT ALUMINUM HYDROXIDE GEL 320MG/5ML SUSP (Status = Discontinued) TAKE 15 ML BY MOUTH FOUR TIMES A DAY NEEDED FOR STOMACH ACID Rx# [id number] Last Released: 05/24/24 Qty/Days Supply: Rx Expiration Date: 07/21/24 Refills Remainin OUTPT ALUMINUM HYDROXIDE GEL 320MG/5ML SUSP (Status = Active) TAKE 15 ML BY MOUTH FOUR TIMES A DAY NEEDED FOR STOMACH ACID Rx# [id number] Last Released: 06/12/24 Qty/Days Supply: 05/11 Rx Expiration Date: 06/11/25 Refills Remainin OUTPT AMIODARONE HCL (PACERONE) 200MG TAB (Status = Active) TAKE ONE TABLET BY MOUTH DAILY FOR HEART Rx# [id number] Last Released: 04/26/24 Qty/Days Supply: Rx Expiration Date: 09/08/24 Refills Remainin OUTPT ASPIRIN 81MG CHEW TAB (Status = Active) CHEW ONE TABLET BY MOUTH EVERY DAY FOR BLOOD THINNER Rx# [id number] Last Released: 05/09/24 Qty/Days Supply: Rx Expiration Date: 09/08/24 Refills Remainin OUTPT CETIRIZINE HCL 10MG TAB (Status = ) TAKE ONE TABLET BY MOUTH EVERY DAY FOR ALLERGIES FOR FLUID BEHIND LEFT EAR. Rx# [id number] Last Released: 03/31/23 Qty/Days Supply: Rx Expiration Date: 03/29/24 Refills Remainin Non-VA COENZYME Q10 200MG CAP/TAB TAKE ONE CAPSULE BY MOUTH OUTPT DOCUSATE NA 100MG CAP (Status = Active) TAKE ONE CAPSULE BY MOUTH DAILY Rx# [id number] Last Released: 04/18/24 Qty/Days Supply: 100/ Rx Expiration Date: 11/14/24 Refills Remainin Indication: FOR STOOL SOFTENER OUTPT DOXAZOSIN MESYLATE 4MG TAB (Status = Active) TAKE ONE TABLET BY MOUTH AT BEDTIME FOR PROSTATE DOSE REDUCTION Rx# [id number] Last Released: 04/23/24 Qty/Days Supply: 90 Rx Expiration Date: 08/09/24 Refills Remainin Indication: FOR PROSTATE OUTPT EZETIMIBE 10MG TAB (Status = Active) TAKE ONE TABLET BY MOUTH EVERY DAY FOR LOWERING CHOLESTEROL Rx# [id number] Last Released: 03/18/24 Qty/Days Supply: 90 Rx Expiration Date: 09/08/24 Refills Remainin OUTPT FEXOFENADINE HCL 180MG TAB (Status = Pending) TAKE ONE TABLET BY MOUTH DAILY Login Date: 06/19/24 Qty/Days Supply: 90 Refills Ordered: 3 OUTPT FLUTICASONE PROP 50MCG 120D NASAL INHL (Status = Pending) INSTILL 2 SPRAYS IN EACH NOSTRIL DAILY Login Date: 06/19/24 Qty/Days Supply: 04/25 Refills Ordered: 11 OUTPT FUROSEMIDE 40MG TAB (Status = Active) TAKE ONE TABLET BY MOUTH DAILY FOR BLOOD PRESSURE/WATER PILL Rx# [id number] Last Released: 06/10/24 Qty/Days Supply: 90 Rx Expiration Date: 09/08/24 Refills Remainin OUTPT GABAPENTIN 600MG TAB (Status = Active) TAKE ONE TABLET BY MOUTH TWICE A DAY FOR PAIN/NEUROPATHY Rx# [id number] Last Released: 06/06/24 Qty/Days Supply: 180 Rx Expiration Date: 07/21/24 Refills Remainin OUTPT LACTULOSE 10GM/15ML ORAL SOLN (Status = Active) TAKE 15 ML BY MOUTH TWICE A DAY FOR CONSTIPATION Rx# [id number] Last Released: 06/10/24 Qty/Days Supply: 30 Rx Expiration Date: 04/30/25 Refills Remainin Indication: FOR CONSTIPATION OUTPT LISINOPRIL 5MG TAB (Status = Active) TAKE ONE TABLET BY MOUTH DAILY FOR BLOOD PRESSURE Rx# [id number] Last Released: 06/17/24 Qty/Days Supply: Rx Expiration Date: 09/08/24 Refills Remainin OUTPT MAGNESIUM OXIDE 400MG TAB (Status = Active) TAKE ONE TABLET BY MOUTH DAILY WITH FOOD Rx# [id number] Last Released: 05/21/24 Qty/Days Supply: 120 Rx Expiration Date: 09/08/24 Refills Remainin Indication: FOR MAGNESIUM REPLACEMENT OUTPT MENTHOL/M-SALICYLATE 10-15% TOP CREAM (Status = Active) APPLY SMALL AMOUNT TOPICALLY NEEDED Rx# [id number] Last Released: 03/11/24 Qty/Days Supply: Rx Expiration Date: 03/08/25 Refills Remainin Indication: FOR SORE MUSCLES OR JOINTS OUTPT METOPROLOL SUCCINATE 50MG SA TAB (Status = Active) TAKE ONE TABLET BY MOUTH EVERY DAY Rx# [id number] Last Released: 05/21/24 Qty/Days Supply: Rx Expiration Date: 08/09/24 Refills Remainin OUTPT MOMETASONE 200MCG/ACTUAT 120D ORAL INHL (Status = Active) INHALE TWO PUFFS BY MOUTH TWICE A DAY RINSE MOUTH AFTER EACH USE Rx# [id number] Last Released: 06/04/24 Qty/Days Supply: 04/25 Rx Expiration Date: 09/08/24 Refills Remainin OUTPT MONTELUKAST NA 10MG TAB (Status = Active) TAKE ONE TABLET BY MOUTH EVERY DAY Rx# [id number] Last Released: 05/27/24 Qty/Days Supply: Rx Expiration Date: 12/18/24 Refills Remainin OUTPT MULTIVITAMIN CAP/TAB (Status = Active) TAKE 1 CAP/TAB BY MOUTH DAILY SUPPLEMENT Rx# [id number] Last Released: 06/10/24 Qty/Days Supply: Rx Expiration Date: 09/08/24 Refills Remainin OUTPT OLODATEROL/TIOTROP 2.5MCG/ACTUAT 60D INH (Status = Discontinued) INHALE 2 PUFFS BY MOUTH EVERY DAY Rx# [id number] Last Released: 05/28/24 Qty/Days Supply: Rx Expiration Date: 12/18/24 Refills Remainin OUTPT OLODATEROL/TIOTROP 2.5MCG/ACTUAT 60D INH (Status = Active) INHALE 2 PUFFS BY MOUTH EVERY DAY Rx# [id number] Last Released: 06/19/24 Qty/Days Supply: Rx Expiration Date: 06/18/25 Refills Remainin OUTPT OMEPRAZOLE 40MG EC CAP (Status = Active) TAKE ONE CAPSULE BY MOUTH EVERY MORNING 30 MINUTES BEFORE BREAKFAST Rx# [id number] Last Released: 06/06/24 Qty/Days Supply: Rx Expiration Date: 03/08/25 Refills Remainin Indication: FOR STOMACH ACID OUTPT PRAVASTATIN NA 20MG TAB (Status = Active) TAKE ONE-HALF TABLET BY MOUTH SUNDAYS, MONDAYS, WEDNESDAYS AND FRIDAYS FOR CHOLESTEROL. CALL YOUR PROVIDER IF YOU HAVE MUSCLE PAIN, TENDERNESS OR WEAKNESS Rx# [id number] Last Released: 03/22/24 Qty/Days Supply: Rx Expiration Date: 09/08/24 Refills Remainin Indication: FOR CHOLESTEROL OUTPT TERBINAFINE HCL 250MG TAB (Status = ) TAKE ONE TABLET BY MOUTH DAILY Rx# [id number] Last Released: 05/16/23 Qty/Days Supply: Rx Expiration Date: 04/03/24 Refills Remainin Indication: FOR FUNGAL INFECTION OUTPT VITAMIN B COMPLEX CAP (Status = Active) TAKE ONE CAPSULE BY MOUTH DAILY Rx# [id number] Last Released: 03/22/24 Qty/Days Supply: Rx Expiration Date: 09/08/24 Refills Remainin SUPPLIES OUTPT ACCU-CHEK GUIDE (GLUCOSE) TEST STRIP (Status = Active) USE ONE STRIP THREE TIMES WEEKLY FOR BLOOD GLUCOSE MONITORING (STORE IN ORIGINAL BOTTLE WITH LID ON AT ALL TIMES) Rx# [id number] Last Released: 04/18/24 Qty/Days Supply: 50/30 Rx Expiration Date: 03/08/25 Refills Remainin OUTPT ALCOHOL PREP PAD (Status = Active) USE PAD TO SUPPLY DIRECTED Rx# [id number] Last Released: 03/08/24 Qty/Days Supply: 200/30 Rx Expiration Date: 03/08/25 Refills Remainin Potential risks, benefits, and alternative to medications prescribed were discussed with Mears/caregiver who was given an opportunity to ask questions, which were answered to the best of my ability and seemingly to their satisfaction. Mears/caregiver was/were instructed to contact provider (means provided) with any concerns or questions. A list of reconciled medications was provided to the Mears/caregiver. /loli/ Dre Contreras M.D. STAFF PACT PHYSICIAN Signed: 06/19/2024 13:55 DRE CONTRERAS [facility] Jun 19, 2024 01:12 PM NURSING NOTE: LOCAL TITLE: JANEY/PREVMED STANDARD TITLE: NURSING NOTE DATE OF NOTE: JUN 19, 2024@13:12 ENTRY DATE: JUN 19, 2024@13:12:18 AUTHOR: ZACK HOOKER EXP COSIGNER: URGENCY: STATUS: COMPLETED TWO OR MORE PATIENT IDENTIFIERS REQUIRED FULL NAME SS NUMBER Date here for aid and attendance paperwork - would like copy of paperwork after provider goes over with it with him PCP: [place] specialists: podiatry, prosthetics, orthopedics, caridiology wants to discuss possible allergy medication and also sinus drainage that he is having Mears did see eye doctor last Monday - they adjust glasses but still having some dizziness when looking through bi-focal Mears also states that he is feeling a pulse in right ear along with tinitus RHS Screen: RHS Screen Environmental Check Screening was not completed at this time due to: Other: declined JANEY-DIABETIC FOOT SCREEN: Patient Refused DM Foot exam this visit. /loli/ ZACK HOOKER audit partner Signed: 06/19/2024 13:25 ZACK HOOKER [facility]
[2024-09-07] MEDS: SODIUM CHLORIDE 0.9% IV 1,000 ML 999 ML IV CONT ×2 (11:17→13:55)
--- OUTSIDE RECORDS SUMMARY | 2024-09-07 11:17 | XMS_ITS | Encounter Summary ---
Author Name [facility] [place] [facility] [place] Organization [facility] [place] Address [address] [place] [address] Care Team Providers Care Electrical Wirer Name Role Phone DANNY CONTRERAS Primary Care Provider Unavailabl e Selected Encounter This section includes the information on record at [place] for the Encounter. Date/Time Encounter Type Encounter Description Reason Pro vider Source Jan 12, 2024 07:52 PM Outpatient Encounter ADMIN PAT ACTIVTIES (MASNONCT) IHE Encounter Template Text not used by [place] Plan of Treatment: Future Appointments (+ 6 months) and Future Tests (+/- 45 days) The Plan of Treatment section includes future care activities for the patient from all [place] treatmentfacilities. This section includes future appointments and future orders which are active, pending or scheduled. Future Appointments This section includes appointments that were scheduled to occur 6 months from the date of the Encounter, up to a maximum of 20 appointments. The data comes from all [place] treatment facilities. Appointment Date/Time Appointment Type Appointme nt Facility Name Jan 16, 2024 11:00 AM [facility] Jan 17, 2024 02:30 PM [facility] Jan 22, 2024 09:00 AM [facility] NONE [facility] Jan 23, 2024 09:30 AM [facility] NONE [facility] Jan 31, 2024 08:00 AM [facility]ORY [facility] NONE [facility] Feb 16, 2024 01:00 PM [facility]ORY [facility] NONE [facility] Feb 19, 2024 02:15 AM [facility]ORY [facility] NONE [facility] Feb 29, 2024 09:50 AM AMBULATORY - NONE [facility] Mar 07, 2024 10:00 AM AMBULATORY - MEDICINE [facility] Apr 10, 2024 11:30 AM AMBULATORY - SURGERY [facility] Apr 10, 2024 11:35 AM AMBULATORY - NONE [facility] Jun 17, 2024 10:00 AM [facility]ORY [facility] NONE [facility] Jun 19, 2024 01:30 PM AMBULATORY - MEDICINE [facility] Jul 03, 2024 09:30 AM AMBULATORY - SURGERY [facility] Jul 03, 2024 09:35 AM AMBULATORY - NONE [facility] Jul 03, 2024 11:00 AM AMBULATORY - NONE [facility] Advance Directives: All historical and current Section Date Range: From patient's date of to the date document was created. This section includes ALL of a patient's completed or amended [place] Advance and Rescinded Directives. The entries below indicate that a directive exists for the patient, but an actual copy is not included with this document. The data comes from all [place] facilities. Date Advance Directives Provider Source August 13, 2013 ADVANCE DIRECTIVE MARITA SANDERS [facility] Oct 13, 1998 ADVANCE DIRECTIVE Jessica YOST [facility] Mar 14, 1994 ADVANCE DIRECTIVE YUMIKO HOLMAN [facility] Encounter Notes: All associated encounter notes This section contains the clinical notes associated to the Encounter. Date/Time Encounter Note(s) Provider Source Jan 12, 2024 07:52 PM NONVA NOTE: LOCAL TITLE: COMMUNITY CARE-CITLALI SELF PRESENTING CARE COORD PLAN STANDARD TITLE: NONVA NOTE DATE OF NOTE: JAN 12, 2024@19:52 ENTRY DATE: JAN 12, 2024@19:52:47 AUTHOR: JORDAN PAZ COSIGNER: URGENCY: STATUS: COMPLETED COMMUNITY CARE-CITLALI SELF PRESENTING CARE COORD PLAN NOTE Has ADDENDA Emergency Notification Intake Date Presenting to the Facility: Dec Method of Contact: Phone [facility] Name: Hospital: [facility] Address: [address] [facility], City: [place] State: [place] Zip Code: [address] [facility] Point of Contact: Name: Louann Hartmann Chief complaint: Thigh Abscess Primary Diagnosis: Disposition Unknown at time of intake note entry /loli/ JORDAN PAZ Signed: 01/12/2024 19:56 01/12/2024 ADDENDUM STATUS: COMPLETED Linen Clerk received @9:26pm a call form [facility] nurse informed AOD that the patient have declined the transfer at this time. AOD informed MOD and Bed coordinator Connie Tam. /loli/ JORDAN PAZ Signed: 01/12/2024 21:30 JORDAN PAZ [facility]
--- OUTSIDE RECORDS SUMMARY | 2024-09-07 11:17 | XMS_ITS | Encounter Summary ---
Author Name Department of Vetera Affairs ([place]) Organization [facility] [place] Address [address] [place] [address] Care Team Providers Care Press Room Supervisor Name Role Phone DRE CONTRERAS Primary Care Provider Unavailabl e Selected Encounter This section includes the information on record at [place] for the Encounter. Date/Time Encounter Type Encounter Description Reason Pro vider Source Jan 04, 2024 08:49 AM Outpatient Encounter COMMUNITY CARE CONSULT IHE Encounter Template Text not used by [place] Plan of Treatment: Future Appointments (+ 6 months) and Future Tests (+/- 45 days) The Plan of Treatment section includes future care activities for the patient from all [place] treatmentfacilities. This section includes future appointments and future orders which are active, pending or scheduled. Future Appointments This section includes appointments that were scheduled to occur 6 months from the date of the Encounter, up to a maximum of 20 appointments. The data comes from all [place] treatment facilities. Appointment Date/Time Appointment Type Appointme nt Facility Name Jan 08, 2024 04:00 PM AMBULATORY [facility]IC[facility] Jan 16, 2024 11:00 AM AMBULATORY - MEDICINE [facility] Jan 17, 2024 02:30 PM AMBULATORY - MEDICINE [facility] Jan 22, 2024 09:00 AM AMBULATORY - NONE [facility] Jan 23, 2024 09:30 AM AMBULATORY - NONE [facility] Jan 31, 2024 08:00 [facility] Feb 16, 2024 01:00 [facility] Feb 19, 2024 02:15 AM [facility]ULATORY - NONE [facility] Feb 29, 2024 09:50 AM AMBULATORY - NONE [facility] Mar 07, 2024 10:00 AM AMBULATORY - MEDICINE [facility] Apr 10, 2024 11:30 AM AMBULATORY - SURGERY [facility] Apr 10, 2024 11:35 AM AMBULATORY - NONE [facility] Jun 17, 2024 10:00 AM [facility]ULATORY - NONE [facility] Jun 19, 2024 01:30 PM AMBULATORY - MEDICINE [facility] Jul 03, 2024 09:30 AM AMBULATORY - SURGERY [facility] Jul 03, 2024 09:35 AM AMBULATORY - NONE [facility] Jul 03, 2024 11:00 AM AMBULATORY - NONE [facility] Advance Directives: All historical and current Section Date Range: From patient's date of to the date document was created. This section includes ALL of a patient's completed or amended [place] Advance and Rescinded Directives. The entries below indicate that a directive exists for the patient, but an actual copy is not included with this document. The data comes from all [place] facilities. Date Advance Directives Provider Source August 13, 2013 ADVANCE DIRECTIVE MARITA SANDERS [facility] Oct 13, 1998 ADVANCE DIRECTIVE Jessica YOST [facility] Mar 14, 1994 ADVANCE DIRECTIVE YUMIKO HOLMAN [facility] Encounter Notes: All associated encounter notes This section contains the clinical notes associated to the Encounter. Date/Time Encounter Note(s) Provider Source Jan 04, 2024 02:32 PM ADDENDUM: LOCAL TITLE: Addendum STANDARD TITLE: ADDENDUM DATE OF NOTE: JAN 04, 2024@14:32:30 ENTRY DATE: JAN 04, 2024@14:32:31 AUTHOR: KATHY GONZALEZ COSIGNER: URGENCY: STATUS: COMPLETED RFS form received. [facility] RN alerting PACT Provider and RN of the RFS request received for Chiropractic continuation of care. RFS form can be viewed in [employer]. Please review and enter this order, if agreeable. - Thank you. Care Requested: Chiropractic Continuation of care ICD-10 Dx code: M54.16, M54.5 Date [place] received request: Dec Date service required: Pending auth Requesting Community Provider Information: Name of Ordering Provider: Adarsh Mckeon Office:[facility] Address, [facility], State: [address] [place] [id number] /es/ Kathy Gonzalez RN, MSN RN Shelf Filler, [facility] Signed: 01/04/2024 14:34 Receipt Acknowledged By: 01/04/2024 14:51 /es/ Dre Contreras M.D. M.D. 01/05/2024 08:58 /es/ CHRISTELLE ACE RN ====== --- Original Document --- 01/04/24 COMMUNITY CARE-REQUEST FOR SERVICE NOTE: Request for Services (RFS) documentation has been sent for scanning to [facility] Care Consult: COMMUNITY CARE-Chiropractic Consult No: [id number] Date sent to scanning: Dec A Request for Service (RFS) form [id number] has been received which includes the following: Care Requested:Continuation of care ICD-10 Dx code: M54.16, M54.5 Date [place] received request: Dec Date service required: Pending auth Requesting Community Provider Information: Name of Ordering Provider: Adarsh Mckeon Office:[facility] Address, [facility], State: [address] [place] [address] /es/ Yanique Mcnally [facility] Signed: 01/04/2024 08:53 01/04/2024 ADDENDUM STATUS: COMPLETED ALERTING COMMUNITY CARE RN /es/ DIPESH PARRA [employer] Signed: 01/04/2024 14:21 Receipt Acknowledged By: 01/04/2024 14:32 /loli/ Kathy Gonzalez RN, MSN RN Shelf Filler, [facility] KATHY GONZALEZ [facility] Jan 04, 2024 02:21 PM ADDENDUM: LOCAL TITLE: Addendum STANDARD TITLE: ADDENDUM DATE OF NOTE: JAN 04, 2024@14:21:53 ENTRY DATE: JAN 04, 2024@14:21:55 AUTHOR: DIPESH PARRA EXP COSIGNER: URGENCY: STATUS: COMPLETED ALERTING COMMUNITY CARE RN /loli/ DIPESH PARRA [employer] Signed: 01/04/2024 14:21 Receipt Acknowledged By: 01/04/2024 14:32 /loli/ Kathy Gonzalez RN, MSN RN Shelf Filler, [facility] ====== --- Original Document --- 01/04/24 COMMUNITY CARE-REQUEST FOR SERVICE NOTE: Request for Services (RFS) documentation has been sent for scanning to [facility] Care Consult: COMMUNITY CARE-Chiropractic Consult No: [id number] Date sent to scanning: Dec A Request for Service (RFS) form [id number] has been received which includes the following: Care Requested:Continuation of care ICD-10 Dx code: M54.16, M54.5 Date [place] received request: Dec Date service required: Pending auth Requesting Community Provider Information: Name of Ordering Provider: Adarsh Mckeon Office:[facility] Address, [facility], [facility]: [address] [place] [address] /es/ Yanique Mcnally [facility] Signed: 01/04/2024 08:53 DIPESH PARRA [facility] Jan 04, 2024 08:53 AM LETTERS: LOCAL TITLE: COMMUNITY CARE-REQUEST FOR SERVICES (RFS) LETTER STANDARD TITLE: LETTERS DATE OF NOTE: JAN 04, 2024@08:53 ENTRY DATE: JAN 04, 2024@08:53:48 AUTHOR: LOUANN MCNALLY EXP COSIGNER: URGENCY: STATUS: COMPLETED Dear Provider, Adarsh Mckeon Information: Patient Name: Ora Del Toro Date of : 1955 The [facility] DEPARTMENT has received the request for services to be provided outside of the [place]. Upon review, the following determination has been made: Referral package has been accepted and request has been made of the provider for approval of this care. This letter is not an authorization for care and care should not be scheduled or administered until an authorization is received. Chiropractic RFS RECEIVED: Should you have questions, please contact us at the [facility] Help Desk [phone] to speak with a patient office services manager. You may also Visit the [facility] portal to check the status and print authorizations. As a reminder, if applicable, return medical records within 30 days for routine services. For SEOC details: SEOC Database https://seoc.nm.gov/ For code/PRCT info: Billing Code / PRCT Information https://www.nm.gov/[facility]/pro viders/PRCT_requirements.asp For Community Providers and [place] users: [place] [facility] https://www.nm.gov/[facility]/ind ex.asp For RFS form and information: [place] [facility] https://www.nm.gov/[facility]/ind ex.asp FOR DME/Pharmacy: https://www.nm.gov/[facility]/pro viders/Service_Requirements.asp Sincerely, [facility] CECYLOUANN Allen [facility] Jan 04, 2024 08:49 AM NONVA NOTE: LOCAL TITLE: COMMUNITY CARE-REQUEST FOR SERVICE NOTE STANDARD TITLE: NONVA NOTE DATE OF NOTE: JAN 04, 2024@08:49 ENTRY DATE: JAN 04, 2024@08:49:23 AUTHOR: LOUANN MCNALLY EXP COSIGNER: URGENCY: STATUS: COMPLETED COMMUNITY CARE-REQUEST FOR SERVICE NOTE Has ADDENDA Request for Services (RFS) documentation has been sent for scanning to [facility] Consult: COMMUNITY CARE-Chiropractic Consult No: [id number] Date sent to scanning: Dec A Request for Service (RFS) form [id number] has been received which includes the following: Care Requested:Continuation of care ICD-10 Dx code: M54.16, M54.5 Date [place] received request: Dec Date service required: Pending auth Requesting Community Provider Information: Name of Ordering Provider: Adarsh Mckeon Office:[facility] Address, [facility], State: [address] [place] [phone] /es/ Yanique Mcnally [facility] Care AMSA Signed: 01/04/2024 08:53 01/04/2024 ADDENDUM STATUS: COMPLETED ALERTING COMMUNITY CARE RN /loli/ DIPESH PARRA LEAD D[employer] MARKETING ASSOCIATE Signed: 01/04/2024 14:21 Receipt Acknowledged By: 01/04/2024 14:32 /es/ Kathy Gonzalez RN, MSN RN Shelf Filler, [facility] 01/04/2024 ADDENDUM STATUS: COMPLETED RFS form received. [facility] RN alerting PACT Provider and RN of the RFS request received for Chiropractic continuation of care. RFS form can be viewed in [employer]. Please review and enter this order, if agreeable. - Thank you. Care Requested: Chiropractic Continuation of care ICD-10 Dx code: M54.16, M54.5 Date [place] received request: Dec Date service required: Pending auth Requesting Community Provider Information: Name of Ordering Provider: Adarsh Ludinlali Office:[facility] Address, [facility], State: [address] [place] [id number] /es/ Kathy Gonzalez RN, MSN RN Shelf Filler, [facility] Signed: 01/04/2024 14:34 Receipt Acknowledged By: 01/04/2024 14:51 /es/ Dre Contreras M.D. M.D. 01/05/2024 08:58 /loli/ CHRISTELLE ACE RN 01/05/2024 ADDENDUM STATUS: COMPLETED consult entered for provider review. /loli/ CHRISTELLE ACE RN Signed: 01/05/2024 08:58 LOUANN MCNALLY
--- OUTSIDE RECORDS SUMMARY | 2024-09-07 11:17 | XMS_ITS | Encounter Summary ---
Author Name [facility] Address [address] [place] [address] Care Team Providers Care Continuity Manager Name Role Phone BEN DANNY Primary Care Provider Unavailabl e Selected Encounter This section includes the information on record at [facility] for the Encounter. Date/Time Encounter Type Encounter Description Reason Provider Source Jan 02, 2024 02:30 PM TRIM NAIL(S) ANY NUMBER PODIATRY ICD-10-CM Z71.89 Other specified counseling ABDOUL GAY Manjinder Encounter Template Text not used by [facility] Assessments - Encounter Diagnoses This section includes the primary and secondary diagnoses documented for the Encounter. Date/Time Primary/Secondary Diagnosis Diagnosis Name Provider Source Jan 02, 2024 02:35 PM PRIMARY Other specified counseling ABDOUL GAY [facility] Plan of Treatment: Future Appointments (+ 6 months) and Future Tests (+/- 45 days) The Plan of Treatment section includes future care activities for the patient from all [facility] treatmentfacilities. This section includes future appointments and future orders which are active, pending or scheduled. Future Appointments This section includes appointments that were scheduled to occur 6 months from the date of the Encounter, up to a maximum of 20 appointments. The data comes from all [facility] treatment facilities. Appointment Date/Time Appointment Type Appointme nt Facility Name Jan 08, 2024 04:00 PM AMBULATORY - MEDICINE [facility] Jan 16, 2024 11:00 AM [facility] Jan 17, 2024 02:30 PM AMBULATORY - MEDICINE [facility] Jan 22, 2024 09:00 AM AMBULATORY - NONE [facility] Jan 23, 2024 09:30 AM AMBULATORY - NONE [facility] Jan 31, 2024 08:00 AM AMBULATORY - NONE [facility] Feb 16, 2024 01:00 PM AMBULATORY - NONE [facility] Feb 19, 2024 02:15 AM AMBULATORY - NONE [facility] Feb 29, 2024 09:50 AM AMBULATORY - NONE [facility] Mar 07, 2024 10:00 AM [facility] Apr 10, 2024 11:30 AM AMBULATORY - SURGERY [facility] Apr 10, 2024 11:35 AM AMBULATORY - NONE [facility] Jun 17, 2024 10:00 AM AMBULATORY - NONE [facility] Jun 19, 2024 01:30 PM AMBULATORY - MEDICINE [facility] Social History: Smoking Status (Most current) and Tobacco Use (All prior to encounter date) This section includes the most current, and the historical, smoking and tobacco- related health factors from the [facility] facility where the Encounter took place. Current Smoking Status This section includes the most current smoking, or tobacco-related health factor, from the [facility] facility where the Encounter took place. Date/Time Current Smoking Status Comment [facility] Sep 08, 2023 10:30 AM VA-TOBACCO USER EVERY DAY [facility] Tobacco Use History This section includes a history of the smoking, or tobacco-related health factors, that were collected on or before the date of the Encounter. The data comes from the [facility] facility where the Encounter took place. Date/Time Smoking Status/Tobac co Use Comment Facility Sep 08, 2023 10:30 AM VA-TOBACCO USE ADVICE [facility] [place] Sep 08, 2023 10:30 AM VA-TOBACCO USE PROGRAM TECHNICIAN NO [facility] Sep 08, 2023 10:30 AM VA-TOBACCO USE MED NO [facility] [place] Sep 08, 2023 10:30 AM VA-TOBACCO USE [place] 30 MIN OF WAKEUP [facility] Sep 08, 2023 10:30 AM VA-TOBACCO USER EVERY DAY [facility] August 23, 2022 08:30 AM VA-TOBACCO USE 30 YEARS OR MORE [facility] August 23, 2022 08:30 AM VA-TOBACCO USE ADVICE [facility] [place] August 23, 2022 08:30 AM VA-TOBACCO USE PROGRAM TECHNICIAN NO [facility] August 23, 2022 08:30 AM VA-TOBACCO USE MED NO [facility] [place] August 23, 2022 08:30 AM VA-TOBACCO USE [place] 30 MIN OF [facility] August 23, 2022 08:30 AM VA-TOBACCO USER EVERY DAY [facility] May 07, 2021 10:00 AM VA-TOBACCO USE 30 YEARS OR MORE [facility] May 07, 2021 10:00 AM VA-TOBACCO USE ADVICE [facility] [place] May 07, 2021 10:00 AM VA-TOBACCO USE PROGRAM TECHNICIAN NO [facility] May 07, 2021 10:00 AM VA-TOBACCO USE MED [facility] [place] May 07, 2021 10:00 AM VA-TOBACCO USE [place] 30 MIN OF [facility] May 07, 2021 10:00 AM VA-TOBACCO USER EVERY DAY [facility] May 07, 2020 01:00 PM VA-TOBACCO USE 30 YEARS OR MORE [facility] May 07, 2020 01:00 PM VA-TOBACCO USE ADVICE [facility] [place] May 07, 2020 01:00 PM VA-TOBACCO USE PROGRAM TECHNICIAN NO [facility] May 07, 2020 01:00 PM VA-TOBACCO USE MED [facility] May 07, 2020 01:00 PM VA-TOBACCO USE [place] 30 MIN OF [facility] May 07, 2020 01:00 PM VA-TOBACCO USER EVERY DAY [facility] Feb 13, 2019 11:11 AM VA-TOBACCO USE 30 YEARS OR MORE [facility] Feb 13, 2019 11:11 AM VA-TOBACCO USE ADVICE [facility] [place] Feb 13, 2019 11:11 AM VA-TOBACCO USE PROGRAM TECHNICIAN NO [facility] Feb 13, 2019 11:11 AM VA-TOBACCO USE MED NO [facility] Feb 13, 2019 11:11 AM VA-TOBACCO USE [place] 30 MIN OF [facility] Feb 13, 2019 11:11 AM VA-TOBACCO USER EVERY DAY [facility] Sep 25, 2017 04:04 PM VA-TOBACCO USE 30 YEARS OR MORE [facility] Sep 25, 2017 04:04 PM VA-TOBACCO USE ADVICE [facility] [place] Sep 25, 2017 04:04 PM VA-TOBACCO USE PROGRAM TECHNICIAN NO [facility] Sep 25, 2017 04:04 PM VA-TOBACCO USE MED NO [facility] [place] Sep 25, 2017 04:04 PM VA-TOBACCO USE [place] 30 MIN OF WAKEUP [facility] Sep 25, 2017 04:04 PM VA-TOBACCO USER EVERY DAY [facility] Sep 20, 2017 12:35 PM HF.TOBACCO COUNSELING REFUSED [facility] Jul 11, 2017 01:33 PM HF.TOBACCO COUNSELING REFUSED [facility] Jul 11, 2017 01:33 PM TOBACCO CESSATION MEDS REFUSED [facility] Jul 11, 2017 01:33 PM TOBACCO CESSATION REFERRAL REFUSED [facility] Jul 11, 2017 01:33 PM TOBACCO OFFERRED STOP SMOKING CLINIC [facility] May 05, 2017 08:20 AM HF.TOBACCO COUNSELING REFUSED [facility] Feb 01, 2017 01:03 PM HF.TOBACCO COUNSELING REFUSED [facility] Aug 29, 2016 08:43 AM HF.TOBACCO COUNSELING REFUSED 2 pk/day declined ( does not wnat to quit) [facility] Aug 29, 2016 08:43 AM TOBACCO CESSATION MEDS REFUSED [facility] Aug 29, 2016 08:43 AM TOBACCO CESSATION REFERRAL REFUSED [facility] Aug 29, 2016 08:43 AM TOBACCO OFFERRED STOP SMOKING CLINIC [facility] May 23, 2016 09:59 AM HF.TOBACCO COUNSELING REFUSED [facility] Feb 29, 2016 09:30 AM HF.TOBACCO COUNSELING REFUSED [facility] Aug 26, 2015 06:35 AM HF.TOBACCO COUNSELING REFUSED [facility] Aug 26, 2015 06:35 AM TOBACCO CESSATION MEDS REFUSED [facility] Aug 26, 2015 06:35 AM TOBACCO CESSATION REFERRAL REFUSED [facility] Aug 26, 2015 06:35 AM TOBACCO OFFERRED PT MEDS (PROVIDER) [facility] Aug 26, 2015 06:35 AM TOBACCO OFFERRED STOP SMOKING CLINIC [facility] Advance Directives: All historical and current Section Date Range: From patient's date of to the date document was created. This section includes ALL of a patient's completed or amended [facility] Advance and Rescinded Directives. The entries below indicate that a directive exists for the patient, but an actual copy is not included with this document. The data comes from all [facility] facilities. Date Advance Directives Provider Source August 13, 2013 ADVANCE DIRECTIVE MARITA SANDERS [facility] Oct 13, 1998 ADVANCE DIRECTIVE Jessica YOST Louann [facility] Mar 14, 1994 ADVANCE DIRECTIVE YUMIKO HOLMAN [facility] Encounter Notes: All associated encounter notes This section contains the clinical notes associated to the Encounter. Date/Time Encounter Note(s) Provider Source Jan 02, 2024 02:11 PM TELEHEALTH NOTE: LOCAL TITLE: CVT PODIATRY STANDARD TITLE: TELEHEALTH NOTE DATE OF NOTE: JAN 02, 2024@14:11 ENTRY DATE: JAN 02, 2024@14:12:14 AUTHOR: LIN GAY EXP COSIGNER: URGENCY: STATUS: COMPLETED TWO OR MORE PATIENT IDENTIFIERS REQUIRED FULL NAME Date Reading has given verbal consent for this encounter to be done through clinical video Telehealth with Podiat[facility] [place]. Please refer to Provider note for details of this encounter. next scheduled 04/10/24 @ 1130 . Will inform the [employer] Resource Specialist /loli/ LIN GAY LPN Signed: 01/02/2024 14:41 LIN GAY [facility]
--- OUTSIDE RECORDS SUMMARY | 2024-09-07 11:17 | XMS_ITS | Encounter Summary ---
Author Name [facility] Organization [facility] Address [address] [place] [address] Care Team Providers Care Lease Picker Name Role Phone DRE CONTRERAS Primary Care Provider Unavailabl e Selected Encounter This section includes the information on record at [place] for the Encounter. Date/Time Encounter Type Encounter Description Reason Pro vider Source Dec 26, 2023 10:09 AM Outpatient Encounter COMMUNITY CARE CONSULT IHE Encounter Template Text not used by [place] Plan of Treatment: Future Appointments (+ 6 months) and Future Tests (+/- 45 days) The Plan of Treatment section includes future care activities for the patient from all [place] treatmentfacilities. This section includes future appointments and future orders which are active, pending or scheduled. Future Appointments This section includes appointments that were scheduled to occur 6 months from the date of the Encounter, up to a maximum of 20 appointments. The data comes from all [place] treatment facilities. Appointment Date/Time Appointment Type Appointme nt Facility Name Jan 02, 2024 02:30 PM AMBULATORY - SURGERY [facility] Jan 02, 2024 02:35 PM AMBULATORY - NONE [facility] Jan 08, 2024 04:00 PM [facility]IC[facility] Jan 16, 2024 11:00 AM AMBULATORY - MEDICINE [facility] Jan 17, 2024 02:30 PM [facility] Jan 22, 2024 09:00 AM [facility]ONE [facility] Jan 23, 2024 09:30 AM [facility] Jan 31, 2024 08:00 AM AMBULATORY - NONE [facility] Feb 16, 2024 01:00 PM AMBULATORY - NONE [facility] Feb 19, 2024 02:15 AM [facility] Feb 29, 2024 09:50 AM AMBULATORY - NONE [facility] Mar 07, 2024 10:00 AM AMBULATORY - MEDICINE [facility] Apr 10, 2024 11:30 AM [facility] Apr 10, 2024 11:35 AM AMBULATORY - NONE [facility] Jun 17, 2024 10:00 AM AMBULATORY - NONE [facility] Jun 19, 2024 01:30 PM AMBULATORY - MEDICINE [facility] Advance Directives: All historical and current Section Date Range: From patient's date of to the date document was created. This section includes ALL of a patient's completed or amended [place] Advance and Rescinded Directives. The entries below indicate that a directive exists for the patient, but an actual copy is not included with this document. The data comes from all [place] facilities. Date Advance Directives Provider Source August 13, 2013 ADVANCE DIRECTIVE MARITA SANDERS [facility] Oct 13, 1998 ADVANCE DIRECTIVE Jessica YOST [facility] Mar 14, 1994 ADVANCE DIRECTIVE YUMIKO HOLMAN [facility] Encounter Notes: All associated encounter notes This section contains the clinical notes associated to the Encounter. Date/Time Encounter Note(s) Provider Source Feb 06, 2024 03:30 PM ADDENDUM: LOCAL TITLE: Addendum STANDARD TITLE: ADDENDUM DATE OF NOTE: FEB 06, 2024@15:30:43 ENTRY DATE: FEB 06, 2024@15:30:44 AUTHOR: KATHY GONZALEZ COSIGNER: URGENCY: STATUS: COMPLETED Records received and reviewed by [facility] RN on 02/06/24 Consult; Vascular Surgery #[id number] Date of Service; 01/31/24 Source/Facility; [facility] Document type; Vascular Surgery f/u office visit and Aorta Iliac IVC Duplex 1) PAD - right common iliac artery stent and right external iliac artery angioplasty in 2020 doing well w/o any claudicaiton, though his back pain is what limits him. Continue antiplatelet therapy w/ASA, anti-hypertensive therapy and statin 2) AAA - AAA duplex noted 3.2 cm AAA Continue risk factor modification w/ASA, Antihypertensive and statins 3) Congestive Heart failure/ICD - Pt has chronic systolic congestive heart failure. He follows w/Dr. Kellogg 4) CAD - PCI - Continue ASA, Statin, Antihypertensive therapy 5) Active smoker - Unfortunately still continues to smoke 2 pack/day. Strongly recommend smoking cessation 6) Hyperlidiemia - On statins would defer to PCP F/u 1 year w/RAKEL & AAA duplex Duplex Ultrasound - Finding AO - An abdominal aortic aneurysm noted in the suprarenal aorta measuring 3.2 cm x 3.2 cm. An abdominal aortic aneurysm noted in the infrarenal aorta measuring 3.1 cm x 3.1 cm. Maximum Aortic Diameter 3.2 cm x 3.2 cm R Iliac - No evidence of iliac artery aneurysm or ectasia noted L Iliac - No evidence of iliac artery aneurysm or extasia noted Ordering provider alerted. This summary does not reflect all clinical information in the medical records received. It is the expectation that the ordering provider reviews the medical records that will be available in [facility]. No [facility] Care Coordination for this visit at this time for any of the following; Navigation Scheduling Post-Appointment Follow-Up E-Communications to referring provider Records have been scanned. /loli/ Kathy Gonzalez RN, MSN RN Undercutter, [facility] Signed: 02/06/2024 15:44 Receipt Acknowledged By: 02/06/2024 15:47 /loli/ Dre Contreras M.D. M.D. ====== --- Original Document --- 12/26/23 COMMUNITY CARE-CARE COORDINATION PLAN NOTE: Community Care Consult: Vascular Surgery Consult No: [id number] [facility] Referral #: [id number] Chief Complaint: Peripheral Vascular Disease, Unspecified(ICD-10-CM I73.9) Patient Admitted? No Level of Care Coordination Moderate Care Coordination was determined from: Chart Review Facility Community Care Office Contact Care Coordination Point of Contact: Community Care RN Services: Basic Care Coordination Services Monitoring and coordination of Rehab/PT Services Direct communication to referring provider Care management, if appropriate Plan: Scheduled 01/31/24 @ 8AM /es/ Yanique Annsonidoronal [facility] Care AMSA Signed: 12/26/2023 10:19 12/26/2023 ADDENDUM STATUS: COMPLETED INF-Teller informed of Community Care eligibility VSP-Teller scheduling preference: [facility] schedules SLD-Scheduling location discussed with Teller: [facility] JOSÉ-Selected appointment location: [facility] CC1-First CC Contact Attempt: Telephone, Other spoke with PSP-'s Scheduled Provider [facility] [address] [place] [address] P: [phone] F: [phone] -Rory F: [phone] - Grace PSP FUV-Follow up communication with provider/vendor to check on status FUD-Community Care Appointment scheduled/rescheduled. ASD-Community Care Appointment scheduled date: 01/31/2024 IAV-Teller informed of appt via: Mail CUR-CTB User Role: Bar Machine Operator Multiple Spindle COM-Additional Comments: Spoke with , confirmed facility and appt. Spoke with Grace with facility, confirmed appt and fax. Scheduled in [facility] Scheduled: 01/31/24 @ 8AM Ultrasound, 9AM Ultrasound, 10AM Provider Ref number: [id number] Offline referral faxed to facility and mailed letter to . /es/ Yanique Mcnally [facility] Care AMSA Signed: 12/26/2023 10:25 12/26/2023 ADDENDUM STATUS: COMPLETED Care Coordination Follow Up Level of Care Coordination Basic Care Coordination was determined from: Chart Review, Phone call to Teller/Family/Caregiver Services: Navigation Scheduling Post-Appointment Follow-Up E-Communications to referring provider Plan: [facility] RN spoke with to discuss care coordination needs. manages care independently and verbalizes no transportation issues; no need for care coordination at this time. /loli/ Kathy Gonzalez RN, MSN RN Undercutter, [facility] Signed: 12/26/2023 15:33 [facility] Dec 26, 2023 10:27 AM NONVA NOTE: LOCAL TITLE: COMMUNITY CARE-PATIENT LETTER (AUTO-PRINT) STANDARD TITLE: NONVA NOTE DATE OF NOTE: DEC 26, 2023@10:27 ENTRY DATE: DEC 26, 2023@10:28:01 AUTHOR: LOUANN MCNALLY COSIGNER: URGENCY: STATUS: COMPLETED Dear: [place] DO NOT REPORT TO A [place] LOCATION OF CARE You have an appointment with a community provider. Your appointment details are: Appointment date & time: Jan@08:00 Community Provider or Facility: [facility] Community Provider Location: [facility] Dr. Agustin Vidal [address] [place] [address] Community Provider Type of Specialty: Vascular Referral number: [id number] Referral valid: Jan to July You can find your authorization information online at [email or web address] If you have a co-pay for your care or prescriptions, [place] will send you a bill in the mail. Do not pay co-pays to [facility] providers. If you get a bill or are asked for a co-pay, contact [facility] at [phone]. In case of emergency call 911 or go to the nearest emergency department. You or your emergency care provider can contact [place] to report emergency treatment. You have 72 hours to report emergency care to [place]. Call [phone] ([phone]) or visit [email or web address] If you have an immediate need for prescription medication after your community care visit, you may be eligible for up to a 14-day supply, filled at a participating [facility] ([facility]) pharmacy. You can find an in-network pharmacy online at: www.[place]/find-locations/ For immediate prescription, provide an eligible pharmacy the following information: BIN: [id number] PCN: [id number] Group: [id number] The prescribed medications must be related to the services authorized on the referral and must be included in the [place] National Formulary. If you do not need medication immediately and for medication supply greater than 14-days, ask the community provider to send your prescription to the pharmacy at [facility] and [place] will mail it to you. To reach the [facility] pharmacy call and press 1. If you are eligible for travel benefits, please note: - Travel will only be paid to the nearest facility that can provide care. - All claims must include proof of attendance attached to the claim. (after-visit summary, discharge paper, letter from treating facility on official letterhead, patient name, dates of service, and provider signature). NOTE: Appointments lists, and preparation instructions are not acceptable. - Claims can be submitted through the Beneficiary Travel Self Service System (BTSSS)at access.[place].gov - For assistance with your travel pay, you may contact [employer] at [phone]. LOUANN MCNALLY [facility] Dec 26, 2023 10:09 AM NONVA NOTE: LOCAL TITLE: COMMUNITY CARE-CARE COORDINATION PLAN NOTE STANDARD TITLE: NONVA NOTE DATE OF NOTE: DEC 26, 2023@10:09 ENTRY DATE: DEC 26, 2023@10:10:04 AUTHOR: LOUANN MCNALLY EXP COSIGNER: URGENCY: STATUS: COMPLETED COMMUNITY CARE-CARE COORDINATION PLAN NOTE Has ADDENDA Community Care Consult: Vascular Surgery Consult No: [id number] [facility] Referral #: [id number] Chief Complaint: Peripheral Vascular Disease, Unspecified(ICD-10-CM I73.9) Patient Admitted? No Level of Care Coordination Moderate Care Coordination was determined from: Chart Review Facility Community Care Office Contact Care Coordination Point of Contact: Community Care RN Services: Basic Care Coordination Services Monitoring and coordination of Rehab/PT Services Direct communication to referring provider Care management, if appropriate Plan: Scheduled 01/31/24 @ 8AM /loli/ Yanique Mcnally [facility] AMSA Signed: 12/26/2023 10:19 12/26/2023 ADDENDUM STATUS: COMPLETED INF- informed of Community Care eligibility VSP-Teller scheduling preference: [facility] schedules SLD-Scheduling location discussed with Teller: Community Care JOSÉ-Selected appointment location: [facility] Care CC1-First CC Contact Attempt: Telephone, Other spoke with PSP-Teller's Scheduled Provider [facility] Agustin Vidal [address] [place] [address] P: [phone] F: [phone] -Rory F: [phone] - Grace BRICEÑO [phone] PSP FUV-Follow up communication with provider/vendor to check on status FUD-Community Care Appointment scheduled/rescheduled. ASD-Community Care Appointment scheduled date: 01/31/2024 IAV-Teller informed of appt via: Mail CUR-CTB User Role: Bar Machine Operator Multiple Spindle COM-Additional Comments: Spoke with , confirmed facility and appt. Spoke with Grace with facility, confirmed appt and fax. Scheduled in [facility] Scheduled: 01/31/24 @ 8AM Ultrasound, 9AM Ultrasound, 10AM Provider Ref number: [id number] Offline referral faxed to facility and mailed letter to . /es/ Yanique Mcnally [facility] AMSA Signed: 12/26/2023 10:25 12/26/2023 ADDENDUM STATUS: COMPLETED Care Coordination Follow Up Level of Care Coordination Basic Care Coordination was determined from: Chart Review, Phone call to Teller/Family/Caregiver Services: Navigation Scheduling Post-Appointment Follow-Up E-Communications to referring provider Plan: [facility] RN spoke with Teller to discuss care coordination needs. manages care independently and verbalizes no transportation issues; no need for care coordination at this time. /es/ Kathy Gonzalez RN, MSN RN Undercutter, [facility] Signed: 12/26/2023 15:33 02/06/2024 ADDENDUM STATUS: COMPLETED Records received and reviewed by [facility] RN on 02/06/24 Consult; Vascular Surgery #[id number] Date of Service; 01/31/24 Source/Facility; [facility] Document type; Vascular Surgery f/u office visit and Aorta Iliac IVC Duplex 1) PAD - right common iliac artery stent and right external iliac artery angioplasty in 2020 doing well w/o any claudicaiton, though his back pain is what limits him. Continue antiplatelet therapy w/ASA, anti-hypertensive therapy and statin 2) AAA - AAA duplex noted 3.2 cm AAA Continue risk factor modification w/ASA, Antihypertensive and statins 3) Congestive Heart failure/ICD - Pt has chronic systolic congestive heart failure. He follows w/Dr. Kellogg 4) CAD - PCI - Continue ASA, Statin, Antihypertensive therapy 5) Active smoker - Unfortunately still continues to smoke 2 pack/day. Strongly recommend smoking cessation 6) Hyperlidiemia - On statins would defer to PCP F/u 1 year w/RAKEL & AAA duplex Duplex Ultrasound - Finding AO - An abdominal aortic aneurysm noted in the suprarenal aorta measuring 3.2 cm x 3.2 cm. An abdominal aortic aneurysm noted in the infrarenal aorta measuring 3.1 cm x 3.1 cm. Maximum Aortic Diameter 3.2 cm x 3.2 cm R Iliac - No evidence of iliac artery aneurysm or ectasia noted L Iliac - No evidence of iliac artery aneurysm or extasia noted Ordering provider alerted. This summary does not reflect all clinical information in the medical records received. It is the expectation that the ordering provider reviews the medical records that will be available in [facility]. No [facility] Care Coordination for this visit at this time for any of the following; Navigation Scheduling Post-Appointment Follow-Up E-Communications to referring provider Records have been scanned. /loli/ Kathy Gonzalez RN, MSN RN Undercutter, [facility] Signed: 02/06/2024 15:44 Receipt Acknowledged By: 02/06/2024 15:47 /loli/ Carlos Haynes M.D.LOUANN Allen [facility]
--- OUTSIDE RECORDS SUMMARY | 2024-09-07 11:17 | XMS_ITS | Encounter Summary ---
Author Name [facility] [place] Organization [facility] [place] [facility] [place] Address [address] [place] [address] Care Team Providers Care Laborer Mine Name Role Phone BEN DANNY Primary Care Provider Unavailabl e Selected Encounter This section includes the information on record at [place] for the Encounter. Date/Time Encounter Type Encounter Description Reason Provider Source Jul 03, 2024 11:00 AM ORTHOTIC MGMT&TRAING 1ST ENC PROSTHETICS/ORTHOT ICS ICD-10-CM E11.40 Type 2 diabetes mellitus with diabetic neuropathy, unsp BERTA SANTIAGO [facility] Encounter Template Text not used by [place] Assessments - Encounter Diagnoses This section includes the primary and secondary diagnoses documented for the Encounter. Date/Time Primary/Secondary Diagnosis Diagnosis Name Provider Source Jul 03, 2024 11:04 AM PRIMARY Type 2 diabetes mellitus with diabetic neuropathy, unsp BERTA SANTIAGO [facility] Plan of Treatment: Future Appointments (+ 6 months) and Future Tests (+/- 45 days) The Plan of Treatment section includes future care activities for the patient from all [place] treatmentfacilities. This section includes future appointments and future orders which are active, pending or scheduled. Future Appointments This section includes appointments that were scheduled to occur 6 months from the date of the Encounter, up to a maximum of 20 appointments. The data comes from all [facility]. Appointment Date/Time Appointment Type Appointme nt Facility Name Jul 16, 2024 10:15 AM AMBULATORY - NONE [facility] August 14, 2024 10:30 AM AMBULATORY - NONE [facility] August 22, 2024 08:30 AM AMBULATORY - NONE [facility] Aug 27, 2024 09:10 AM AMBULATORY - NONE [facility] Aug 27, 2024 01:00 PM AMBULATORY - REHAB MEDICIN E [facility] Sep 05, 2024 09:30 AM AMBULATORY - MEDICINE [facility] Sep 10, 2024 09:45 AM AMBULATORY - NONE [facility] Oct 23, 2024 10:00 AM AMBULATORY - SURGERY [facility] Oct 23, 2024 10:05 AM AMBULATORY - NONE [facility] Active, Pending, and Scheduled Orders This section includes a listing of several types of active, pending, and scheduled orders, including clinic medications orders, diagnostic test orders, procedure orders and consult orders; where the start date of the order is 45 days before the date of the Encounter or 45 days after the date of theEncounter. The data comes from all [facility]. Test Date/Time Test Type Test Details Facility Name Jun 20, 2024 07:58 AM Consult Order COMMUNITY CARE-ENDOCRINOLOGY Cons Orthotist Prosthetist's Choice [facility] Social History: Smoking Status (Most current) and Tobacco Use (All prior to encounter date) This section includes the most current, and the historical, smoking and tobacco- related health factors from the [place] facility where the Encounter took place. Current Smoking Status This section includes the most current smoking, or tobacco-related health factor, from the [place] facility where the Encounter took place. Date/Time Current Smoking Status Comment Melissa corbin Sep 08, 2023 10:30 AM VA-TOBACCO USER EVERY DAY [facility] Tobacco Use History This section includes a history of the smoking, or tobacco-related health factors, that were collected on or before the date of the Encounter. The data comes from the [place] facility where the Encounter took place. Date/Time Smoking Status/Tobac co Use Comment Facility Sep 08, 2023 10:30 AM VA-TOBACCO USE ADVICE [facility] [place] Sep 08, 2023 10:30 AM VA-TOBACCO USE MAKEUP ARTISTRY INSTRUCTOR NO [facility] Sep 08, 2023 10:30 AM VA-TOBACCO USE MED NO [facility] [place] Sep 08, 2023 10:30 AM VA-TOBACCO [place] [address] [facility] Sep 08, 2023 10:30 AM VA-TOBACCO USER EVERY DAY [facility] August 23, 2022 08:30 AM VA-TOBACCO USE 30 YEARS OR MORE [facility] August 23, 2022 08:30 AM VA-TOBACCO USE ADVICE [facility] [place] August 23, 2022 08:30 AM VA-TOBACCO USE MAKEUP ARTISTRY INSTRUCTOR NO [facility] August 23, 2022 08:30 AM VA-TOBACCO USE MED NO [facility] [place] August 23, 2022 08:30 AM VA-TOBACCO [place] [address] [facility] August 23, 2022 08:30 AM VA-TOBACCO USER EVERY DAY [facility] May 07, 2021 10:00 AM VA-TOBACCO USE 30 YEARS OR MORE [facility] May 07, 2021 10:00 AM VA-TOBACCO USE ADVICE [facility] [place] May 07, 2021 10:00 AM VA-TOBACCO USE MAKEUP ARTISTRY INSTRUCTOR [facility] May 07, 2021 10:00 AM VA-TOBACCO USE MED NO [facility] [place] May 07, 2021 10:00 AM VA-TOBACCO [place] [address] [facility] May 07, 2021 10:00 AM VA-TOBACCO USER EVERY DAY [facility] May 07, 2020 01:00 PM VA-TOBACCO USE 30 YEARS OR MORE [facility] May 07, 2020 01:00 PM VA-TOBACCO USE ADVICE [facility] [place] May 07, 2020 01:00 PM VA-TOBACCO USE MAKEUP ARTISTRY INSTRUCTOR NO [facility] May 07, 2020 01:00 PM VA-TOBACCO USE MED NO [facility] May 07, 2020 01:00 PM VA-TOBACCO [place] [address] [facility] May 07, 2020 01:00 PM VA-TOBACCO USER EVERY DAY [facility] Feb 13, 2019 11:11 AM VA-TOBACCO USE 30 YEARS OR MORE [facility] Feb 13, 2019 11:11 AM VA-TOBACCO USE ADVICE [facility] [place] Feb 13, 2019 11:11 AM VA-TOBACCO USE MAKEUP ARTISTRY INSTRUCTOR NO [facility] Feb 13, 2019 11:11 AM VA-TOBACCO USE MED NO [facility] [place] Feb 13, 2019 11:11 AM VA-TOBACCO USE [place] [facility] Feb 13, 2019 11:11 AM VA-TOBACCO USER EVERY DAY [facility] Sep 25, 2017 04:04 PM VA-TOBACCO USE 30 YEARS OR MORE [facility] Sep 25, 2017 04:04 PM VA-TOBACCO USE ADVICE [facility] [place] Sep 25, 2017 04:04 PM VA-TOBACCO USE MAKEUP ARTISTRY INSTRUCTOR NO [facility] Sep 25, 2017 04:04 PM VA-TOBACCO USE MED NO [facility] [place] Sep 25, 2017 04:04 PM VA-TOBACCO USE [place] [facility] Sep 25, 2017 04:04 PM [...] ALL of a patient's completed or amended [place] Advance and Rescinded Directives. The entries below indicate that a directive exists for the patient, but an actual copy is not included with this document. The data comes from all [place] facilities. Date Advance Directives Provider Source August 13, 2013 ADVANCE DIRECTIVE MARITA SANDERS [facility] Oct 13, 1998 ADVANCE DIRECTIVE Jessica YOST Louann [facility] Mar 14, 1994 ADVANCE DIRECTIVE HOLMANWILYLALITO [facility] Encounter Notes: All associated encounter notes This section contains the clinical notes associated to the Encounter. Date/Time Encounter Note(s) Provider Source Jul 03, 2024 10:58 AM ORTHOTICS PROSTHET ICS CONSULT: [facility] TITLE: CONSULT/ORTHOTIC LAB STANDARD TITLE: ORTHOTICS PROSTHETICS CONSULT DATE OF NOTE: JUL 03, 2024@10:58 ENTRY DATE: JUL 03, 2024@10:58:52 AUTHOR: WELLINGTON SANTIAGO COSIGNER: URGENCY: STATUS: COMPLETED ORA DEL TORO Aug Consult for: Diabetic Shoes & OTS Inserts referred from: _x_ [facility] _[facility] __[facility] __ [facility] __[facility] __[facility] __ [facility] __Delia __[place]evieve[place] __ [facility] __Miller __ Other Diagnosis:Type 2 Diabetes Mellitus with Diabetic Neuropathy, unspecified(ICD-10-CM E11.40) Diabetic Foot Exam Date:Apr 10, 2024 Diabetic Foot Exam Rating: _x_Moderate--Level 2 __High--Level 3 Date of Last Issued Shoes: Mar 2023 __Serviceable _x_Condemned threw them out Date of Previous Issued Shoes:Apr 2022 __Servicable _x_Condemned [place]'s primary complaint is:All VA shoes/boots are worn out. POD states [place] needs boots for ankle support. Assessment/Treatment: presents wearing previously dispensed pair of shoes with OTS inserts from 2022. Shoes & inserts show significant signs of wear and break down. They are in need of replacement at this time. Will order 2 pair of footwear and 4 additional pairs of OTS inserts for [place] to change as needed, every 3-4 months. The following measurement was taken: Mens 10.5 x-wide The following order will be placed with Prosthetics. __ Initial Shoe Order _x_ Repeat Shoe Order Order and send to [facility]: VENDOR-Anodyne ([id number]) 1 pair FSS DM Shoes--Bedias Worker black Size Mens 10.5 x-wide (A5510) 2 pair OTC Inserts--Size Mens 10.5 x-wide VENDOR-Delmar Emey (A5500) 1 pair FSS DM Shoes--6506 boot black Size Mens 10.5 x-wide (A5510) 2 pair OTC Inserts--Size Mens 10.5 x-wide _X_ FSS Contract Shoe __ Non Contract Shoe; meets patient's medical requirements __ Contracted Orthotic Device __ Off Contract Orthotic Device; meets patient's medical requirements [place] will be scheduled for fitting once orthotic devices arrive. Delivery/Scheduling Location: __[place] __[place] __Mail to __[facility] __[facility] _x_[place] face to face Education: was instructed on proper wear and care of orthotic devices. instructed to follow-up as needed and to contact the clinic with any questions or concerns regarding orthotic devices. /loli/ WELLINGTON SANTIAGO Customer Care Coordinator Signed: 07/03/2024 11:04 WELLINGTON SANTIAGO [facility]
--- OUTSIDE RECORDS SUMMARY | 2024-09-07 11:17 | XMS_ITS | Encounter Summary ---
Author Name Department of Vetera Affairs ([place]) Organization Department of Vetera [place]) Address [address] [place] [address] Care Team Providers Care Milk Condenser Name Role Phone DANNY CONTRERAS Primary Care Provider Unavailabl e Selected Encounter This section includes the information on record at [place] for the Encounter. Date/Time Encounter Type Encounter Description Reason Provider Source August 09, 2024 02:15 PM Outpatient Encounter PODIATRY ICD-10-CM E11.40 Type 2 diabetes mellitus with diabetic neuropathy, BURTON Deleon [facility] Encounter Template Text not used by [place] Assessments - Encounter Diagnoses This section includes the primary and secondary diagnoses documented for the Encounter. Date/Time Primary/Secondary Diagnosis Diagnosis Name Provider Source August 11, 2024 07:48 PM PRIMARY Type 2 diabetes mellitus with diabetic neuropathy, LUBA Deleon [facility] Plan of Treatment: Future Appointments [...] Date/Time Appointment Type Appointme nt Facility Name August 14, 2024 10:30 AM AMBULATORY - NONE [facility] August 22, 2024 08:30 AM AMBULATORY - NONE [facility] Aug 27, 2024 09:10 AM AMBULATORY - NONE [facility] Aug 27, 2024 01:00 PM AMBULATORY - REHAB MEDICIN E [facility] Sep 05, 2024 09:30 AM AMBULATORY - MEDICINE [facility] Sep 10, 2024 09:45 AM AMBULATORY - NONE [facility] Oct 23, 2024 10:00 AM AMBULATORY - SURGERY [facility] Oct 23, 2024 10:05 AM AMBULATORY - NONE [facility] Jan 21, 2025 10:00 AM AMBULATORY - NONE [facility] Active, Pending, and Scheduled Orders This section includes a listing of several types of active, pending, and scheduled orders, including clinic medications orders, diagnostic test orders, procedure orders and consult orders; where the start date of the order is 45 days before the date of the Encounter or 45 days after the date of theEncounter. The data comes from all [place] treatment facilities. Test Date/Time Test Type Test Details Facility Name August 23, 2024 09:56 AM Consult Order COMMUNITY CARE-DERMATOLOGY Cons Asphalt Still Operator's Choice [facility] Lab Results: +/- 30 days of the encounter This section includes the Chemistry and Hematology Lab Results on record with [place] for the patient. Radiology Reports and Pathology Reports are provided separately, in subsequent sections. Lab Results This section contains the Chemistry/Hematology Results that were resulted 30 days before or 30 daysafter the date of the Encounter. Date/Time Source Result Type Result - Unit Interpretation Reference Range Specimen Type Comment Aug 27, 2024 09:21 AM [facility] FOLATE ([place]) SERUM Specimen Type: SERUM Comment: Methotrexate and Leucovorin (folinic acid) interfere with the measurement of folate. Patients receiving these drugs should not be tested for folate by this method. Ordering Provider: DANNY CONTRERAS Report Released Date/Time: May 03, 2024 12:41 PM Reporting Lab: [facility] [address] [facility] [address] Performing Lab: [facility] [address] [facility] [address] FOLATE ([place]) >48.00 ng/mL 5.39-48.00 Aug 27, 2024 09:21 AM [facility] VITAMIN B12 ([place]) SERUM Speci men Type: SERUM Comment: Methotrexate and Leucovorin (folinic acid) interfere with the measurement of folate. Patients receiving these drugs should not be tested for folate by this method. Ordering Provider: DANNY CONTRERAS Report Released Date/Time: Jun 28, 2024 07:56 AM Reporting Lab: [address] [address] Performing Lab: [facility] [address] [facility] [address] VITAMIN B12 (CONTRERAS) 728 pg/mL 193-986 Aug 27, 2024 09:21 AM [facility] FERRITIN (CONTRERAS) SERUM Specimen Type: SERUM Comment: Methotrexate and Leucovorin (folinic acid) interfere with the measurement of folate. Patients receiving these drugs should not be tested for folate by this method. Ordering Provider: DANNY CONTRERAS Report Released Date/Time: May 24, 2024 09:08 AM Reporting Lab: [address] [address] Performing Lab: [facility] [address] [facility] [address] FERRITIN (CONTRERAS) 27.9 ng/mL 26.0-388.0 Aug 27, 2024 09:21 AM [facility] A1C % BLOOD Specimen Type: BLOOD [...] 8.73 and 9.27. Ref: http://[email or web address].org/[email or web address] Ordering Provider: DANNY CONTRERAS Report Released Date/Time: Mar 07, 2024 10:28 AM Reporting Lab: [address] [address] Performing Lab: [address] [address] A1C % 6.2 H 0.0-5.6 Aug 27, 2024 09:21 AM [facility] IRON PANEL SERUM Specimen T ype: SERUM Comment: TIBC may be inaccurate if patient is on iron dextran in the last 14 days. Ordering Provider: DANNY CONTRERAS Report Released Date/Time: Mar 07, 2024 10:32 AM Reporting Lab: [address] [address] Performing Lab: [address] [address] IRON 69 ug/dL 65-175 TOT IRON BINDING CAPAC 395 ug/dL 250-450 % IRON SATURATION 17 10-50 Aug 27, 2024 09:21 AM [facility] COMPREHENSIVE PNL PLASMA Specime n Type: PLASMA Comment: eGFR was calculated using the CKD-EPI Creatinine (2020) equation. Ordering Provider: DANNY CONTRERAS Report Released Date/Time: Mar 07, 2024 10:28 AM Reporting Lab: [address] [address] Performing Lab: [address] [address] ANION GAP 6 mmol/L 5-15 EGFR 54 [...] H 0.73-1.18 Aug 27, 2024 09:21 AM [facility] CBC W/DIFF BLOOD Specimen T ype: BLOOD No comment entered. Ordering Provider: DANNY CONTRERAS Report Released Date/Time: Mar 07, 2024 10:28 AM Reporting Lab: [address] [address] Performing Lab: [address] [address] WBC 7.6 10*3/uL 4.0-11.0 RBC 4.27 10*6/uL [...] 0.0 /100{WBCs} 0.0-0.2 NRBC# <0.01 10*3/uL 0.00-0.01 Advance Directives: All historical and current Section [...] August 13, 2013 ADVANCE DIRECTIVE MARITA SANDERS [facility] Oct 13, 1998 ADVANCE DIRECTIVE Jessica YOST [facility] Mar 14, 1994 ADVANCE DIRECTIVE YUMIKO HOLMAN [facility] Encounter Notes: All associated encounter notes This section contains the clinical notes associated to the Encounter. Date/Time Encounter Note(s) Provider Source August 09, 2024 02:16 PM TELEHEALTH NOTE: LOCAL TITLE: REMOTE TEMPERATURE MONITORING STANDARD TITLE: TELEHEALTH NOTE DATE OF NOTE: AUGUST 09, 2024@14:16 ENTRY DATE: AUGUST 09, 2024@14:16:17 AUTHOR: LUBA COONEY EXP COSIGNER: URGENCY: STATUS: COMPLETED Disenrollment: Reason: Per chart review, patient is without a qualifying diagnosis/enrollment criterion: ENROLLMENT CRITERIA PAVE Foot Risk Score 3 patient Positive for one of the following qualifying Dx: 1. Hx of Ulcer. (If active ulcer is present, it is recommended the patient not engage with RPPM device until the Ulcer has healed.) 2. Charcot Foot 3. Hx of Amputation. (pt must have at least one foot to participate in the program) The patient will be disenrolled from RPPM at this time. Should provider determine the patient has a qualifying diagnosis, a new enrollment note with a qualifying diagnosis must be placed. [employer] /loli/ Luba Cooney DPM DPM, Mason Liner Signed: 08/11/2024 19:48 LUBA COONEY [facility]
--- OUTSIDE RECORDS SUMMARY | 2024-09-07 11:18 | XMS_ITS | Encounter Summary ---
Author Name [facility] [place] [facility] [place] [facility] [place] Address [address] [place] [address] Care Team Providers Care Customer Consulting Manager Name Role Phone BEN DANNY Primary Care Provider Unavailabl e Selected Encounter This section includes the information on record at [place] for the Encounter. Date/Time Encounter Type Encounter Description Reason Provider Source Apr 10, 2024 11:30 AM TRIM NAIL(S) ANY NUMBER PODIATRY ICD-10-CM Z71.89 Other specified counseling ABDOUL GAY Manjinder Encounter Template Text not used by [place] Assessments - Encounter Diagnoses This section includes the primary and secondary diagnoses documented for the Encounter. Date/Time Primary/Secondary Diagnosis Diagnosis Name Provider Source Apr 10, 2024 11:51 AM PRIMARY Other specified counseling ABDOUL GAY [facility] Plan of Treatment: Future Appointments (+ 6 months) and Future Tests (+/- 45 days) The Plan of Treatment section includes future care activities for the patient from all [place] treatmentfacilities. This section includes future appointments and future orders which are active, pending or scheduled. Future Appointments This section includes appointments that were scheduled to occur 6 months from the date of the Encounter, up to a maximum of 20 appointments. The data comes from all [place] treatment facilities. Appointment Date/Time Appointment Type Appointme nt Facility Name Jun 17, 2024 10:00 AM AMBULATORY - NONE [facility] Jun 19, 2024 01:30 PM [facility] Jul 03, 2024 09:30 AM AMBULATORY - SURGERY [facility] Jul 03, 2024 09:35 AM AMBULATORY - NONE [facility] Jul 03, 2024 11:00 AM AMBULATORY - NONE [facility] Jul 16, 2024 10:15 AM AMBULATORY - NONE [facility] August 14, 2024 10:30 AM AMBULATORY - NONE [facility] August 22, 2024 08:30 AM AMB[facility]ORY - NONE [facility] Aug 27, 2024 09:10 AM AMBULATORY - NONE [facility] Aug 27, 2024 01:00 PM AMBULATORY - REHAB MEDICIN E [facility] Sep 05, 2024 09:30 AM [facility] Sep 10, 2024 09:45 AM AMBULATORY - NONE [facility] Social History: Smoking Status (Most current) and Tobacco Use (All prior to encounter date) This section includes the most current, and the historical, smoking and tobacco- related health factors from the [place] facility where the Encounter took place. Current Smoking Status This section includes the most current smoking, or tobacco-related health factor, from the [place] facility where the Encounter took place. Date/Time Current Smoking Status Comment [facility] Sep 08, 2023 10:30 AM VA-TOBACCO USER EVERY DAY [facility] Tobacco Use History This section includes a history of the smoking, or tobacco-related health factors, that were collected on or before the date of the Encounter. The data comes from the [place] facility where the Encounter took place. 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 [facility] Sep 08, 2023 10:30 AM VA-TOBACCO USE MED NO [facility] Sep 08, 2023 10:30 AM VA-TOBACCO USE WI 30 MIN OF WAKEUP [facility] Sep 08, 2023 10:30 AM VA-TOBACCO USER EVERY DAY [facility] August 23, 2022 08:30 AM VA-TOBACCO USE 30 YEARS OR MORE [facility] August 23, 2022 08:30 AM VA-TOBACCO USE ADVICE [facility] August 23, 2022 08:30 AM 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 [facility] August 23, 2022 08:30 AM VA-TOBACCO USE MED NO [facility] August 23, 2022 08:30 AM VA-TOBACCO USE [place] 30 MIN OF [facility] August 23, 2022 08:30 AM VA-TOBACCO USER EVERY DAY [facility] May 07, 2021 10:00 AM VA-TOBACCO USE 30 YEARS OR MORE [facility] May 07, 2021 10:00 AM VA-TOBACCO USE ADVICE [facility] May 07, 2021 10:00 AM 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 [facility] May 07, 2021 10:00 AM VA-TOBACCO USE MED NO [facility] May 07, 2021 10:00 AM VA-TOBACCO USE [place] 30 MIN OF [facility] May 07, 2021 10:00 AM VA-TOBACCO USER EVERY DAY [facility] May 07, 2020 01:00 PM VA-TOBACCO USE 30 YEARS OR MORE [facility] May 07, 2020 01:00 PM VA-TOBACCO USE ADVICE [facility] May 07, 2020 01:00 PM 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 [facility] May 07, 2020 01:00 PM VA-TOBACCO USE MED NO [facility] May 07, 2020 01:00 PM VA-TOBACCO USE [place] 30 MIN OF [facility] May 07, 2020 01:00 PM VA-TOBACCO USER EVERY DAY [facility] Feb 13, 2019 11:11 AM VA-TOBACCO USE 30 YEARS OR MORE [facility] Feb 13, 2019 11:11 AM VA-TOBACCO USE ADVICE [facility] Feb 13, 2019 11:11 AM 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 [facility] Feb 13, 2019 11:11 AM VA-TOBACCO USE MED NO [facility] Feb 13, 2019 11:11 AM VA-TOBACCO USE [place] 30 MIN OF [facility] Feb 13, 2019 11:11 AM VA-TOBACCO USER EVERY DAY [facility] Sep 25, 2017 04:04 PM VA-TOBACCO USE 30 YEARS OR MORE [facility] Sep 25, 2017 04:04 PM VA-TOBACCO USE ADVICE [facility] Sep 25, 2017 04:04 PM 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 [facility] Sep 25, 2017 04:04 PM VA-TOBACCO USE MED NO [facility] Sep 25, 2017 04:04 PM VA-TOBACCO USE WI 30 MIN OF WAKEUP [facility] Sep 25, 2017 04:04 PM VA-TOBACCO USER EVERY DAY [facility] Sep 20, 2017 12:35 PM HF.TOBACCO COUNSELING REFUSED [facility] Jul 11, 2017 01:33 PM HF.TOBACCO COUNSELING REFUSED [facility] Jul 11, 2017 01:33 PM TOBACCO CESSATION MEDS REFUSED [facility] Jul 11, 2017 01:33 PM TOBACCO CESSATION REFERRAL REFUSED [facility] Jul 11, 2017 01:33 PM TOBACCO OFFERRED STOP SMOKING CLINIC [facility] May 05, 2017 08:20 AM HF.TOBACCO COUNSELING REFUSED [facility] Feb 01, 2017 01:03 PM HF.TOBACCO COUNSELING REFUSED [facility] Aug 29, 2016 08:43 AM HF.TOBACCO COUNSELING REFUSED 2 pk/day declined ( does not wnat to quit) [facility] Aug 29, 2016 08:43 AM TOBACCO CESSATION MEDS REFUSED [facility] Aug 29, 2016 08:43 AM TOBACCO CESSATION REFERRAL REFUSED [facility] Aug 29, 2016 08:43 AM TOBACCO OFFERRED STOP SMOKING CLINIC [facility] May 23, 2016 09:59 AM HF.TOBACCO COUNSELING REFUSED [facility] Feb 29, 2016 09:30 AM HF.TOBACCO COUNSELING REFUSED [facility] Aug 26, 2015 06:35 AM HF.TOBACCO COUNSELING REFUSED [facility] Aug 26, 2015 06:35 AM TOBACCO CESSATION MEDS REFUSED [facility] Aug 26, 2015 06:35 AM TOBACCO CESSATION REFERRAL REFUSED [facility] Aug 26, 2015 06:35 AM TOBACCO OFFERRED PT MEDS (PROVIDER) [facility] Aug 26, 2015 06:35 AM TOBACCO OFFERRED STOP SMOKING CLINIC [facility] Advance Directives: All historical and current Section Date Range: From patient's date of to the date document was created. This section includes ALL of a patient's completed or amended [place] Advance and Rescinded Directives. The entries below indicate that a directive exists for the patient, but an actual copy is not included with this document. The data comes from all [place] facilities. Date Advance Directives Provider Source August 13, 2013 ADVANCE DIRECTIVE BYSTROM,MARITA [facility] Oct 13, 1998 ADVANCE DIRECTIVE Jessica YOST [facility] Mar 14, 1994 ADVANCE DIRECTIVE YUMIKO HOLMAN [facility] Encounter Notes: All associated encounter notes This section contains the clinical notes associated to the Encounter. Date/Time Encounter Note(s) Provider Source Apr 10, 2024 11:50 AM TELEHEALTH NOTE: LOCAL TITLE: CVT PODIATRY STANDARD TITLE: TELEHEALTH NOTE DATE OF NOTE: APR 10, 2024@11:50 ENTRY DATE: APR 10, 2024@11:50:48 AUTHOR: LIN GAY EXP COSIGNER: URGENCY: STATUS: COMPLETED TWO OR MORE PATIENT IDENTIFIERS REQUIRED FULL NAME Date has given verbal consent for this encounter to be done through clinical video Telehealth with [facility] [place]. Please refer to Provider note for details of this encounter. next scheduled 07/03/24 at 0930 . Will inform the Nut Grader /loli/ LNI GAY LPN Signed: 04/10/2024 11:51 Receipt Acknowledged By: 04/10/2024 14:16 /loli/ CHAPARRO WREN CLIENT FINANCE ANALYST 04/10/2024 13:16 /loli/ LIN JAIMES [facility]
--- OUTSIDE RECORDS SUMMARY | 2024-09-07 11:18 | XMS_ITS | Encounter Summary ---
Author Name [facility] [place] [facility] [place] [facility] [place] Address [address] [place] [address] Care Team Providers Care Compacting Machine Operator/Tender Name Role Phone DRE CONTRERAS Primary Care Provider Unavailabl e Selected Encounter This section includes the information on record at [place] for the Encounter. Date/Time Encounter Type Encounter Description Reason Pro vider Source Jan 16, 2024 11:29 AM Outpatient Encounter ADMIN PAT ACTIVTIES (JYOTINONCT) IHE Encounter Template Text not used by [place] Plan of Treatment: Future Appointments (+ 6 months) and Future Tests (+/- 45 days) The Plan of Treatment section includes future care activities for the patient from all [place] treatmentfacilities. This section includes future appointments and future orders which are active, pending or scheduled. Future Appointments This section includes appointments that were scheduled to occur 6 months from the date of the Encounter, up to a maximum of 20 appointments. The data comes from all [place] treatment facilities. Appointment Date/Time Appointment Type Appointme nt Facility Name Jan 17, 2024 02:30 PM [facility]ORY - MEDICINE [facility] Jan 22, 2024 09:00 AM [facility]ORY - NONE [facility] Jan 23, 2024 09:30 AM [facility]ORY - NONE [facility] Jan 31, 2024 08:00 AM AMBUL[facility]ORY - NONE [facility] Feb 16, 2024 01:00 PM AMBULATORY - NONE [facility] Feb 19, 2024 02:15 AM AMBULATORY - NONE [facility] Feb 29, 2024 09:50 AM AMBULATORY - NONE [facility] Mar 07, 2024 10:00 AM AMBULATORY - MEDICINE [facility] Apr 10, 2024 11:30 AM AMBULATORY - SURGERY [facility] Apr 10, 2024 11:35 AM AMBULATORY - NONE [facility] Jun 17, 2024 10:00 AM AMBULATORY - NONE [facility] Jun 19, 2024 01:30 PM AMBULATORY - MEDICINE [facility] Jul 03, 2024 09:30 AM AMBULATORY - SURGERY [facility] Jul 03, 2024 09:35 AM AMBULATORY - NONE [facility] Jul 03, 2024 11:00 AM AMBULATORY - NONE [facility] Jul 16, 2024 10:15 AM AMBULATORY - NONE [facility] Advance Directives: All historical and current Section Date Range: From patient's date of to the date document was created. This section includes ALL of a patient's completed or amended [place] Advance and Rescinded Directives. The entries below indicate that a directive exists for the patient, but an actual copy is not included with this document. The data comes from all [place] facilities. Date Advance Directives Provider Source August 13, 2013 ADVANCE DIRECTIVE MARITA SANDERS [facility] Oct 13, 1998 ADVANCE DIRECTIVE Jessica YOST [facility] Mar 14, 1994 ADVANCE DIRECTIVE YUMIKO HOLMAN [facility] Encounter Notes: All associated encounter notes This section contains the clinical notes associated to the Encounter. Date/Time Encounter Note(s) Provider Source Jan 16, 2024 11:29 AM PHYSICIAN NOTE: LOCAL TITLE: PROVIDER/MEDICATION RECONCILIATION STANDARD TITLE: PHYSICIAN NOTE DATE OF NOTE: JAN 16, 2024@11:29:59 ENTRY DATE: JAN 16, 2024@11:30 AUTHOR: DRE CONTRERAS EXP COSIGNER: URGENCY: STATUS: COMPLETED [facility] [address], [place] [address] ORA DEL TORO JAN 16, 2024 [address], [place] [address] Patient: ORA DEL TORO (: 1955) A list of reconciled medications was provided to the /caregiver. The following medication list was reviewed with the patient/caregiver: The [place]/caregiver was counseled on new medications and/or medication changes. Potential risks, benefits, and alternative to medications prescribed were discussed with /caregiver who was given an opportunity to ask questions, which were answered to the best of my ability and seemingly to their satisfaction. [place]/caregiver was/were instructed to contact provider (means provided) with any concerns or questions. INCLUDED IN THIS LIST: Alphabetical list of active outpatient prescriptions dispensed from this [place] (local) and dispensed from another VA or [facility]D facility (remote) as well as inpatient orders (local pending and active), local clinic medications, locally documented non-VA medications, and local prescriptions that have or been discontinued in the past 90 days. NOTE The display of VA prescriptions dispensed from another VA or DoD facility (remote) is limited to active outpatient prescription entries matched to National Drug File at the originating site and may not include some items such as investigational drugs, compounds, etc. NOT INCLUDED IN THIS LIST: Medications self-entered by the patient into personal health records (i.e. [employer]) are not included in this list. Non-VA medications documented outside this [place], remote inpatient orders (regardless of status) and remote clinic medications are NOT included in this list. The patient and provider must always discuss medications the patient is taking, regardless of where the medication was dispensed or obtained. Patient safety alert: Medications and allergies from [facility] facilities may be incomplete. Reference [facility] for full list. Allergies/ADRs LocalAllergies:ATORVASTATIN(MU SCLEPAIN),CILOSTAZOL(HYPOTENSI ON), FERROUSSULFATE(ABDOMINALPAIN), ROSUVASTATIN(INCREASEDSERUMALT (SGPT)), SIMVASTATIN,SPIRONOLACTONE(ELECTRONIC WARFARE TECHNICIAN [employer]) RemoteAllergies:FERROUSSULFATE (INDIGESTION),ROSUVASTATIN(KYLE ERENZYMES ABNORMAL),SIMVASTATIN(MUSCLEPA IN) Med Reconciliation Patient is taking the following [...] Heart ASPIRIN 81MG CHEW TAB (OUTPT Status: ACTIVE) Chew one tablet by mouth every day for blood thinner Usually Taken for: Blood thinner CETIRIZINE HCL 10MG TAB (OUTPT Status: ACTIVE) Take one tablet by mouth every day for allergies for fluid behind left ear. Usually Taken for: Allergies COENZYME Q10 CAP/TAB (NON-VA Status: ACTIVE) One capsule mouth Usually Taken for: Supplement DOCUSATE NA 100MG CAP (OUTPT Status: ACTIVE/SUSP) Take one capsule by mouth daily Usually Taken for: Constipation DOXAZOSIN MESYLATE 4MG TAB (OUTPT Status: ACTIVE) Take one tablet by mouth at bedtime for prostate dose reduction Usually Taken for: Prostate/Blood pressure EZETIMIBE 10MG TAB (OUTPT Status: ACTIVE) Take one tablet by mouth every day for lowering cholesterol Usually Taken for: Cholesterol FISH OIL 1000MG (500MG DHA/EPA) CAP,ORAL (NON-VA Remote: [facility] Status: ACTIVE) 1000mg by mouth once a day Usually Taken for: Cholesterol FUROSEMIDE 40MG TAB (OUTPT Status: ACTIVE) Take one tablet by mouth dailyfor blood pressure/water pill Usually Taken for: Blood pressure/Water pill GABAPENTIN 600MG TAB (OUTPT Status: ACTIVE) Take one tablet by mouth twice a day for pain/neuropathy Usually Taken for: Pain/Neuropathy LIDOCAINE 5% PATCH (OUTPT Status: ACTIVE) Psw1lmkviswpsylmsxekqby,hairle ssareaoncedailyasneededpresspa tch iekkswyvwmtmvs91-31mcgbwfafras atactivatetheadhesive. remove patch(es) after 12 hours and leave off for 12 hours. Usually Taken for: Pain LISINOPRIL 5MG TAB (OUTPT Status: ACTIVE) Take one tablet by mouth daily for blood pressure Usually Taken for: Blood pressure MAGNESIUM OXIDE 400MG TAB (OUTPT Status: ACTIVE) Take one tablet by mouth daily with food Usually Taken for: Supplement MENTHOL/M-SALICYLATE 10-15% TOP CREAM (OUTPT Status: ACTIVE) Apply small amount topically as needed Usually Taken for: Pain METOPROLOL SUCCINATE 50MG SA TAB (OUTPT Status: ACTIVE) Take one tablet by mouth every day Usually Taken for: Blood pressure/Heart MOMETASONE 200MCG/ACTUAT 120D ORAL INHL (OUTPT Status: ACTIVE) Inhale two puffs by mouth twice a day rinse mouth after each use Usually Taken for: Breathing MONTELUKAST NA 10MG TAB (OUTPT Status: ACTIVE) Take one tablet by mouth every day Usually Taken for: Breathing MULTIVITAMIN CAP/TAB (OUTPT Status: ACTIVE) Take 1 cap/tab by mouth daily supplement Usually Taken for: Supplement OLODATEROL/TIOTROP 2.5MCG/ACTUAT 60D INH (OUTPT Status: ACTIVE) Inhale 2 puffs by mouth every day Usually Taken for: Breathing OMEPRAZOLE 40MG EC CAP (OUTPT Status: ACTIVE) Take one capsule by mouth every morning 30 minutes before breakfast Usually Taken for: Stomach PRAVASTATIN NA 20MG TAB (OUTPT Status: ACTIVE) Take-halftbymouthsunda ys,mondays,wednesdaysandmonday sfor cholesterol.callyourproviderif youhavemusclepain, tenderness or weakness [...] Taken for: Supplement VITAMIN B COMPLEX CAP,ORAL (NON-[facility]: [facility] Status: ACTIVE) 1 capsule by mouth every morning Usually Taken for: Supplement Other medications (not labeled by provider):
CYCLOBENZAPRINE HCL 10MG TAB (OUTPT Status: ) Take one tablet by mouth three times a day as needed Usually Taken for: Muscle relaxer DEXTRAN 70/GLYCER 0.2%/HYPROMEL 0.3% OPH (OUTPT Status: ) Instill two drops both eyes three times a day as needed for the eye Usually Taken for: Eyes NITROGLYCERIN (EQ-NITROSTAT) 0.4MG SL TB (OUTPT Status: ) Dissolveonetabletunderthetongu scseje0iyoqzkcgxtlchugejpebvqh pain.ifnoimprovementafterthree dosesgotonearest emergency room. discard opened bottle after 6 months Usually Taken for: Heart Previously prescribed (local [facility]) medications: DOCUSATE NA 100MG CAP (OUTPT Status = Discontinued) Take one capsule by mouth daily Usually Taken for: Constipation MONTELUKAST NA 10MG TAB (OUTPT Status = Discontinued) Take one tablet by mouth at bedtime Usually Taken for: Breathing MONTELUKAST NA 10MG TAB (OUTPT Status = Discontinued) Take one tablet by mouth at bedtime Usually Taken for: Breathing OLODATEROL/TIOTROP 2.5MCG/ACTUAT 60D INH (OUTPT Status = Discontinued) Qujlxd4yhmozzrfqtqtsqsigngfeei rtusingafterfinishingthetreleg y samplesperprovider Usually Taken for: Breathing SUPPLIES: ACCU-CHEK GUIDE (GLUCOSE) TEST STRIP (OUTPT) Use one strip three times weekly for blood glucose monitoring (store in original bottle with lid on at all times) ALCOHOL PREP PAD (OUTPT) Use pad to supply as directed /loli/ Dre Contreras M.D. M.D. Date printed: JAN 16, 2024 11:33 [facility] DRE CONTRERAS [facility]
--- OUTSIDE RECORDS SUMMARY | 2024-09-07 11:18 | XMS_ITS | Encounter Summary ---
Author Name [facility] [place] Organization [facility] [place] Address [address] [place] [address] Care Team Providers Care Violin Teacher Name Role Phone DRE CONTRERAS Primary Care Provider Unavailabl e Selected Encounter This section includes the information on record at [place] for the Encounter. Date/Time Encounter Type Encounter Description Reason Provider Source Jan 16, 2024 11:00 AM OFFICE O/P EST SF 10 MIN PRIMARY CARE/MEDICINE ICD-10-CM L02.214 Cutaneous abscess of groin DRE CONTRERAS Manjinder Encounter Template Text not used by [place] Assessments - Encounter Diagnoses This section includes the primary and secondary diagnoses documented for the Encounter. Date/Time Primary/Secondary Diagnosis Diagnosis Name Provider Source Jan 16, 2024 11:28 AM PRIMARY Cutaneous abscess of groin DRE CONTRERAS [facility] Plan of Treatment: Future Appointments (+ 6 months) and Future Tests (+/- 45 days) The Plan of Treatment section includes future care activities for the patient from all [place] treatmentfacilities. This section includes future appointments and future orders which are active, pending or scheduled. Future Appointments This section includes appointments that were scheduled to occur 6 months from the date of the Encounter, up to a maximum of 20 appointments. The data comes from all [place] treatment facilities. Appointment Date/Time Appointment Type Appointme nt Facility Name Jan 17, 2024 02:30 PM [facility] Jan 22, 2024 09:00 AM [facility] NONE [facility] Jan 23, 2024 09:30 AM [facility] Jan 31, 2024 08:00 AM [facility] Feb 16, 2024 01:00 PM [facility]ONE [facility] Feb 19, 2024 02:15 AM [facility] NONE [facility] Feb 29, 2024 09:50 AM AMBULATORY - NONE [facility] Mar 07, 2024 10:00 AM AMBULATORY - MEDICINE [facility] Apr 10, 2024 11:30 AM AMBULATORY - SURGERY [facility] Apr 10, 2024 11:35 AM AMBULATORY - NONE [facility] Jun 17, 2024 10:00 AM [facility]ORY - NONE [facility] Jun 19, 2024 01:30 PM AMBULATORY - MEDICINE [facility] Jul 03, 2024 09:30 AM AMBULATORY - SURGERY [facility] Jul 03, 2024 09:35 AM AMBULATORY - NONE [facility] Jul 03, 2024 11:00 AM AMBULATORY - NONE [facility] Jul 16, 2024 10:15 AM [facility]ORY - NONE [facility] Vital Signs: All taken on the encounter date This section contains inpatient and outpatient Vital Signs collected on the date of the Encounter. Date/Time Temperature Pulse Blood Pressure Respiratory Rate SP02 Pain Height Weight Body Mass Index Source Jan 16, 2024 11:07 AM 97.7 61 115/58 18 96 4 240.5 37 [facility] Social History: Smoking Status (Most current) and Tobacco Use (All prior to encounter date) This section includes the most current, and the historical, smoking and tobacco- related health factors from the [facility] where the Encounter took place. Current Smoking Status This section includes the most current smoking, or tobacco-related health factor, from the [place] facility where the Encounter took place. Date/Time Current Smoking Status Comment Melissa corbin Sep 08, 2023 10:30 AM VA-TOBACCO USER EVERY DAY [facility] Tobacco Use History This section includes a history of the smoking, or tobacco-related health factors, that were collected on or before the date of the Encounter. The data comes from the [place] facility where the Encounter took place. Date/Time Smoking Status/Tobac co Use Comment Facility Sep 08, 2023 10:30 AM VA-TOBACCO USE ADVICE [facility] [place] Sep 08, 2023 10:30 AM VA-TOBACCO USE FIELD SERVICE COORDINATOR NO [facility] Sep 08, 2023 10:30 AM VA-TOBACCO USE MED NO [facility] Sep 08, 2023 10:30 AM VA-TOBACCO USE WI 30 MIN OF [facility] Sep 08, 2023 10:30 AM VA-TOBACCO USER EVERY DAY [facility] August 23, 2022 08:30 AM VA-TOBACCO USE 30 YEARS OR MORE [facility] August 23, 2022 08:30 AM VA-TOBACCO USE ADVICE [facility] August 23, 2022 08:30 AM VA-TOBACCO USE FIELD SERVICE COORDINATOR NO [facility] August 23, 2022 08:30 AM VA-TOBACCO USE MED NO [facility] August 23, 2022 08:30 AM VA-TOBACCO USE WI 30 MIN OF [facility] August 23, 2022 08:30 AM VA-TOBACCO USER EVERY DAY [facility] May 07, 2021 10:00 AM VA-TOBACCO USE 30 YEARS OR MORE [facility] May 07, 2021 10:00 AM VA-TOBACCO USE ADVICE [facility] May 07, 2021 10:00 AM VA-TOBACCO USE FIELD SERVICE COORDINATOR NO [facility] May 07, 2021 10:00 AM VA-TOBACCO USE MED NO [facility] May 07, 2021 10:00 AM VA-TOBACCO USE WI 30 MIN OF [facility] May 07, 2021 10:00 AM VA-TOBACCO USER EVERY DAY [facility] May 07, 2020 01:00 PM VA-TOBACCO USE 30 YEARS OR MORE [facility] May 07, 2020 01:00 PM VA-TOBACCO USE ADVICE [facility] May 07, 2020 01:00 PM VA-TOBACCO USE FIELD SERVICE COORDINATOR NO [facility] May 07, 2020 01:00 PM VA-TOBACCO USE MED NO [facility] May 07, 2020 01:00 PM VA-TOBACCO USE WI 30 MIN OF [facility] May 07, 2020 01:00 PM VA-TOBACCO USER EVERY DAY [facility] Feb 13, 2019 11:11 AM VA-TOBACCO USE 30 YEARS OR MORE [facility] Feb 13, 2019 11:11 AM VA-TOBACCO USE ADVICE [facility] Feb 13, 2019 11:11 AM VA-TOBACCO USE FIELD SERVICE COORDINATOR NO [facility] Feb 13, 2019 11:11 AM VA-TOBACCO USE MED NO [facility] Feb 13, 2019 11:11 AM VA-TOBACCO USE WI 30 MIN OF [facility] Feb 13, 2019 11:11 AM VA-TOBACCO USER EVERY DAY [facility] Sep 25, 2017 04:04 PM VA-TOBACCO USE 30 YEARS OR MORE [facility] Sep 25, 2017 04:04 PM VA-TOBACCO USE ADVICE [facility] Sep 25, 2017 04:04 PM VA-TOBACCO USE FIELD SERVICE COORDINATOR NO [facility] Sep 25, 2017 04:04 PM VA-TOBACCO USE MED NO [facility] Sep 25, 2017 04:04 PM VA-TOBACCO USE WI 30 MIN OF [facility] Sep 25, 2017 04:04 PM VA-TOBACCO USER EVERY DAY [facility] Sep 20, 2017 12:35 PM HF.TOBACCO COUNSELING REFUSED [facility] Jul 11, 2017 01:33 PM HF.TOBACCO COUNSELING REFUSED [facility] Jul 11, 2017 01:33 PM TOBACCO CESSATION MEDS REFUSED [facility] Jul 11, 2017 01:33 PM TOBACCO CESSATION REFERRAL REFUSED [facility] Jul 11, 2017 01:33 PM TOBACCO OFFERRED STOP SMOKING CLINIC [facility] May 05, 2017 08:20 AM HF.TOBACCO COUNSELING REFUSED [facility] Feb 01, 2017 01:03 PM HF.TOBACCO COUNSELING REFUSED [facility] Aug 29, 2016 08:43 AM HF.TOBACCO COUNSELING REFUSED 2 pk/day declined ( does not wnat to quit) [facility] Aug 29, 2016 08:43 AM TOBACCO CESSATION MEDS REFUSED [facility] Aug 29, 2016 08:43 AM TOBACCO CESSATION REFERRAL REFUSED [facility] Aug 29, 2016 08:43 AM TOBACCO OFFERRED STOP SMOKING CLINIC [facility] May 23, 2016 09:59 AM HF.TOBACCO COUNSELING REFUSED [facility] Feb 29, 2016 09:30 AM HF.TOBACCO COUNSELING REFUSED [facility] Aug 26, 2015 06:35 AM HF.TOBACCO COUNSELING REFUSED [facility] Aug 26, 2015 06:35 AM TOBACCO CESSATION MEDS REFUSED [facility] Aug 26, 2015 06:35 AM TOBACCO CESSATION REFERRAL REFUSED [facility] Aug 26, 2015 06:35 AM TOBACCO OFFERRED PT MEDS (PROVIDER) [facility] Aug 26, 2015 06:35 AM TOBACCO OFFERRED STOP SMOKING CLINIC [facility] Advance Directives: All historical and current Section Date Range: From patient's date of to the date document was created. This section includes ALL of a patient's completed or amended [place] Advance and Rescinded Directives. The entries below indicate that a directive exists for the patient, but an actual copy is not included with this document. The data comes from all [place] facilities. Date Advance Directives Provider Source August 13, 2013 ADVANCE DIRECTIVE MARITA SANDERS [facility] Oct 13, 1998 ADVANCE DIRECTIVE Jessica YOST Louann [facility] Mar 14, 1994 ADVANCE DIRECTIVE YUMIKO HOLMAN [facility] Encounter Notes: All associated encounter notes This section contains the clinical notes associated to the Encounter. Date/Time Encounter Note(s) Provider Source Jan 16, 2024 11:17 AM PRIMARY CARE NOTE: LOCAL TITLE: [facility] STANDARD TITLE: PRIMARY CARE NOTE DATE OF NOTE: JAN 16, 2024@11:17 ENTRY DATE: JAN 16, 2024@11:17:52 AUTHOR: DRE CONTRERAS EXP COSIGNER: URGENCY: STATUS: COMPLETED CHIEF COMPLAINT: Acute visit for ER f/up for abscess on buttock. HISTORY OF PRESENT ILLNESS: Nursing notes reviewed. This is a 68 year-old being seen today for above reason. Vet called triage on 01/08/24 with abscess on buttock. Was Rx bactrim DS and cephalexin by triage physician. VEt called triage again on 01/15/24 saying area was bigger. Was advised to go to ER. [place] contacted [place] and was given two antibiotics and cyst, which is located on left side of groin area 22 cm wide x 40 cm long; became larger and went to ER; ER gave IV vancomycin and was dehydrated; went home and later that night cyst burst, and had brownish, gel-like fluid; cyst is still painful; did have slight temperature but is now afebrile. Still some drainge. Clear gel. PMHx: leg cramps, CKD, COPD, vetricular arrhythmia, CAD/CHF, BPH, HTN, GERD, hyperlipidemia, DM2, anemia, colon polyp PAST MEDICAL HISTORY: Medications: As listed in chart and reviewed. Allergies: ROSUVASTATIN, SIMVASTATIN, FERROUS SULFATE, SPIRONOLACTONE, ATORVASTATIN CILOSTAZOL >>Non-VA provider(s): renal, endo, vascular, card SOCIAL HISTORY: Habits (Y/N): [y ] Tabacco [ y] Alcohol use [n ] Illicit drug use REVIEW OF SYSTEMS: General: No fever, chills, weight loss, or anorexia. No fatigue. HEENT: No visual or hearing changes. Cardiovascular: No chest pain, palptiations, edema. Respiratory: No cough, or hemoptysis. Some SOB. Gastrointestinal: No abdominal pain, nausea/vomiting, diarrhea, or hematochezia, or melena. Genitalurinary: No dysuria, urgency, frequency, hematuria. Musculoskeletal: No acute muscle or joint pain. Skin: See HPI. Neurologic: No headache, dizziness, numbness, tingling, weakness. Psychoogical: No depressive or anxiety symptoms. No suicidal ideation. OBJECTIVE: Vital signs: DATE/TIME TEMP PULSE RESP BP PAIN WT (LB) P OX 01/16/24 @ 1107 97.7 61 18 115/58 4 240.5 96 Physical Exam: General: NAD. Awake, alert, oriented x3. Groin: large abscess in left groin with fluctuance deep. Serous drinage. Psychiatric: Pleasant, cooperative. Affect is full and mood congruent. Labs: [ ] Reviewed with patient. ASSESSMENT/PLAN: 1. groin abcess- continue oral abx until gone. See surgeon for I&D. Consult placed. Follow-up: as planned/PRN [ ] Get labs 1 week before: Total time: 10 mins -For new medications, potential side effects reviewed with patient. -Medications refilled as needed. -Patient advised that if symptoms get worse or not better to call or go to nearest ED or urgent care for further evaluation. -Preventive medicine items reviewed with patient as indicated. -Patient advised to return to clinic as planned or as needed. /loli/ Dre Contreras M.D. M.D. Signed: 01/16/2024 11:28 DRE CONTRERAS [facility] Jan 16, 2024 10:55 AM NURSING NOTE: LOCAL TITLE: [facility]/PREVMED STANDARD TITLE: NURSING NOTE DATE OF NOTE: JAN 16, 2024@10:55 ENTRY DATE: JAN 16, 2024@10:55:33 AUTHOR: ZACK HOOKER EXP COSIGNER: URGENCY: STATUS: COMPLETED TWO OR MORE PATIENT IDENTIFIERS REQUIRED FULL NAME SS NUMBER Date [place] here for follow up after ER visit for growing cyst [place] contacted [place] and was given two antibiotics and cyst, which is located on left side of groin area 22 cm wide x 40 cm long; became larger and went to ER; ER gave IV vancomycin and was dehydrated; went home and later that night cyst burst, and had brownish, gel-like fluid; cyst is still painful; did have slight temperature but is no afebrile. PCP: [place] Specialists: podiatry, prosthetics, orthopedics, cardiovascular Influenza Immunization: Deferral / Refusal The patient declines to receive the recommended dose of seasonal influenza vaccine. Immunization: INFLUENZA, UNSPECIFIED FORMULATION Refusal Reason: PATIENT DECISION Patient refuses all immunization(s) in the FLU group Date Documented: 01/16/24 11:16 RHS Screen: RHS Screen Environmental Check Screening was not completed at this time due to: Other: declined /es/ ZACK HOOKER food manager Signed: 01/16/2024 11:17 ZACK HOOKER [facility]
--- OUTSIDE RECORDS SUMMARY | 2024-09-07 11:18 | XMS_ITS | Encounter Summary ---
Author Name [facility] [place] Organization [place] Address [address] [place] [address] Care Team Providers Care Powdered Metal Supervisor Name Role Phone DANNY CONTRERAS Primary Care Provider Unavailabl e Selected Encounter This section includes the information on record at [place] for the Encounter. Date/Time Encounter Type Encounter Description Reason Pro vider Source Sep 07, 2024 09:57 AM Outpatient Encounter TELEPHONE TRIAGE IHE Encounter Template Text not used by CT Plan of Treatment: Future Appointments (+ 6 months) and Future Tests (+/- 45 days) The Plan of Treatment section includes future care activities for the patient from all [place] treatmentfacilities. This section includes future appointments and future orders which are active, pending or scheduled. Future Appointments This section includes appointments that were scheduled to occur 6 months from the date of the Encounter, up to a maximum of 20 appointments. The data comes from all [place] treatment facilities. Appointment Date/Time Appointment Type Appointme nt Facility Name Sep 10, 2024 09:45 AM AMBULATORY - NONE [facility] Oct 23, 2024 10:00 AM AMBULATORY - SURGERY [facility] Oct 23, 2024 10:05 AM AMBULATORY - NONE [facility] Jan 21, 2025 10:00 AM [facility]ORY - NONE [facility] Feb 27, 2025 09:30 AM AMBULATORY - NONE [facility] Mar 06, 2025 09:30 AM AMBULATORY - MEDICINE [facility] Active, Pending, and Scheduled Orders This section includes a listing of several types of active, pending, and scheduled orders, including clinic medications orders, diagnostic test orders, procedure orders and consult orders; where the start date of the order is 45 days before the date of the Encounter or 45 days after the date of theEncounter. The data comes from all [place] treatment facilities. Test Date/Time Test Type Test Details Facility Name August 23, 2024 09:56 AM Consult Order [facility]-DERMATOLOGY Cons Research Test Engine Operator's Choice [facility] Lab Results: +/- 30 days of the encounter This section includes the Chemistry and Hematology Lab Results on record with CT for the patient. Radiology Reports and Pathology Reports are provided separately, in subsequent sections. Lab Results This section contains the Chemistry/Hematology Results that were resulted 30 days before or 30 daysafter the date of the Encounter. Date/Time Source Result Type Result - Unit Interpretation Reference Range Specimen Type Comment Aug 27, 2024 09:21 AM [facility] VITAMIN B12 (CONTRERAS) SERUM Specimen Type: SERUM Comment: Methotrexate and Leucovorin (folinic acid) interfere with the measurement of folate. Patients receiving these drugs should not be tested for folate by this method. Ordering Provider: DANNY CONTRERAS Report Released Date/Time: Jun 28, 2024 07:56 AM Reporting Lab: [facility] [address] [facility] [address] Performing Lab: [facility] [address] [facility] [address] VITAMIN B12 (CONTRERAS) 728 pg/mL 193-986 Aug 27, 2024 09:21 AM [facility] FERRITIN (CONTRERAS) SERUM Specimen Type: SERUM Comment: Methotrexate and Leucovorin (folinic acid) interfere with the measurement of folate. Patients receiving these drugs should not be tested for folate by this method. Ordering Provider: DANNY CONTRERAS Report Released Date/Time: May 24, 2024 09:08 AM Reporting Lab: [facility] [address] [facility] [address] Performing Lab: [facility] [address] [facility] [address] FERRITIN (CONTRERAS) 27.9 ng/mL 26.0-388.0 Aug 27, 2024 09:21 AM [facility] FOLATE (CONTRERAS) SERUM Specimen T ype: SERUM Comment: Methotrexate and Leucovorin (folinic acid) interfere with the measurement of folate. Patients receiving these drugs should not be tested for folate by this method. Ordering Provider: DANNY CONTRERAS Report Released Date/Time: May 03, 2024 12:41 PM Reporting Lab: [address] [address] Performing Lab: [facility] [address] [facility] [address] FOLATE ([place]) >48.00 ng/mL 5.39-48.00 Aug 27, 2024 09:21 AM [facility] A1C % BLOOD Specimen Type: [...] Mar 07, 2024 10:28 AM Reporting Lab: [address] [address] Performing Lab: [address] [address] A1C % 6.2 H 0.0-5.6 Aug 27, 2024 09:21 AM [facility] IRON PANEL SERUM Specimen T ype: SERUM Comment: TIBC may be inaccurate if patient is on iron dextran in the last 14 days. Ordering Provider: DANNY CONTRERAS Report Released Date/Time: Mar 07, 2024 10:32 AM Reporting Lab: [address] [address] Performing Lab: [address] [address] IRON 69 ug/dL 65-175 TOT IRON BINDING CAPAC 395 ug/dL 250-450 % IRON SATURATION 17 10-50 Aug 27, 2024 09:21 AM [facility] COMPREHENSIVE PNL PLASMA Specime n Type: PLASMA Comment: eGFR was calculated using the CKD-EPI Creatinine (2021) equation. Ordering Provider: DANNY CONTRERAS Report Released Date/Time: Mar 07, 2024 10:28 AM Reporting Lab: [address] [address] Performing Lab: [address] [address] ANION GAP 6 mmol/L 5-15 EGFR 54 [...] H 0.73-1.18 Aug 27, 2024 09:21 AM [facility] CBC W/DIFF BLOOD Specimen T ype: BLOOD No comment entered. Ordering Provider: DANNY CONTRERAS Report Released Date/Time: Mar 07, 2024 10:28 AM Reporting Lab: [address] [address] Performing Lab: [address] [address] WBC 7.6 10*3/uL 4.0-11.0 RBC 4.27 10*6/uL [...] ALL of a patient's completed or amended CT Advance and Rescinded Directives. The entries below indicate that a directive exists for the patient, but an actual copy is not included with this document. The data comes from all [place] facilities. Date Advance Directives Provider Source August 13, 2013 ADVANCE DIRECTIVE MARITA SANDERS [facility] Oct 13, 1998 ADVANCE DIRECTIVE Jessica YOST [facility] Mar 14, 1994 ADVANCE DIRECTIVE YUMIKO HOLMAN [facility] Encounter Notes: All associated encounter notes This section contains the clinical notes associated to the Encounter. Date/Time Encounter Note(s) Provider Source Sep 07, 2024 09:57 AM RN PROGRESS NOTE: LOCAL TITLE: [facility]3]: CLINICAL TRIAGE STANDARD TITLE: RN PROGRESS NOTE DATE OF NOTE: SEP 07, 2024@09:57:51 ENTRY DATE: SEP 07, 2024@09:57:51 AUTHOR: PETER VALENCIA COSIGNER: URGENCY: STATUS: COMPLETED Caller Verification Call Back Number: Caller/Recipient Relation to Patient: Self Caller Name: ORA DEL TORO Emergency Contact: RASHID DEL TORO [facility] Screening Patient Stated Symptoms: B/P concern: L arm:68/51 61,80/58 61, R arm: 128/41 61, took full days of B/P medication x current Triage Summary Conducted triage/discussed symptoms Utilized the Triage Tool: Yes Chief Complaint: Blood Pressure - Low Nurse's Recommendation / WHEN: Now Nurse's Recommendation / WHERE: 911 Patient Disposition Patient/Caregiver agrees to plan of care: No Patient WHERE[facility] WHEN: Now Nursing Plan and Disposition Referred patient to higher level of care Contacted EMS/e911 Clinical Contact Center Codes Clinic/Location: V12 [facility] PHONE RN Decision Support System Output: Triage Complete Triage Date: 09/07/2024, 09:56 AM Triage Note: Decision Support Tool Used: Laura Poseyan states that he took his morning and evening medications accidently this morning. He denies any new or worsening symptoms. He took his BP during the call and he has left arm 71/55 P 60. earlier in his rt arm he had 128/41 p 61. [place] is alone and encouraged to call 911. He state if he stood up and felt ok he will drive himself, and will call 911 if he has any symptoms. Protocol Used: Blood Pressure - Low Protocol-Based Disposition: Go to ED Now Positive Triage Question: * [1] Systolic BP < 80 AND [2] NOT feeling weak or lightheaded Negative Triage Questions: * Difficult to awaken or acting confused (e.g., disoriented, slurred speech) * Fainted * [1] Systolic BP < 90 AND [2] feeling weak or lightheaded (e.g., woozy, feeling like they might faint) * Chest pain * Bleeding (e.g., vomiting blood, rectal bleeding or tarry stools, severe vaginal bleeding) (Exception: Fainted from sight of small amount of blood; small cut or abrasion.) * Extra heartbeats, irregular heart beating, or heart is beating very fast (i.e., palpitations) * Sounds like a life-threatening emergency to the triager IMPORTANT: This note was created by [facility] staff. Please do not alert the staff member by adding them as a signer for future communications. Alerts are not monitored by this user. /loli/ PETER VALENCIA REGISTERED NURSE Signed: 09/07/2024 09:57 Receipt Acknowledged By: * AWAITING SIGNATURE * DANNY CONTRERAS * AWAITING SIGNATURE * CHRISTELLE ACE,PETER CHAHAL [facility]
--- NOTE | 2024-09-07 11:19 | ED.GENADULT ---
HPI - General Adult General Chief complaint: Overdose Stated complaint: took double dose of B/P meds Time Seen by Provider: 09/07/24 11:05 Source: patient Mode of arrival: ambulatory Limitations: no limitations History of Present Illness HPI narrative: PATIENT ACCIDENTALLY TOOK HIS NIGHT MEDICATIONS FEW MINUTES AFTER TAKING HIS MORNING MEDICATION. PATIENT NOTED THAT HIS BLOOD PRESSURE WAS LOW 80/50 CALLED POISON CONTROL THEN REFERRED TO OUR EMERGENCY ROOM. PATIENT DENIES ANY FEVER, CHILLS, NAUSEA, VOMITING, CHEST PAIN, SHORTNESS OF BREATH, BACK PAIN OR ABDOMINAL PAIN. PATIENT IS LONG LIST OF MEDICATIONS INCLUDING AMIODARONE ONCE A DAY, DOXAZOSIN ONCE A DAY, LASIX 40 MG ONCE A DAY, METOPROLOL 50 MG ONCE A DAY, LISINOPRIL 5 MG ONCE A DAY Q.H.S. Related Data Home Medications ?Medication ?Instructions ?Recorded ?Confirmed ?Last Taken ?Type Adult Low Dose Aspirin 81 mg PO DAILY 12/20/19 04/17/22 Unknown History Nitrostat 0.4 mg sublingual DIRECTED 12/20/19 04/17/22 Unknown History amiloride 5 mg PO DAILY 12/20/19 04/17/22 Unknown History amiodarone 200 mg PO DAILY 12/20/19 04/17/22 Unknown History budesonide 80 mcg inhalation BID 12/20/19 04/17/22 Unknown History cholecalciferol (vitamin D3) 25 mcg BYMOUTH DAILY 12/20/19 04/17/22 Unknown History doxazosin 8 mg PO DAILY 12/20/19 04/17/22 Unknown History gabapentin 100 mg PO DAILY 12/20/19 04/17/22 Unknown History lisinopril 40 mg PO DAILY 12/20/19 04/17/22 Unknown History metoprolol succinate 200 mg PO DAILY 12/20/19 04/17/22 Unknown History multivit with minerals-iron 18 1 tablet PO DAILY 12/20/19 04/17/22 Unknown History mg-folic ac 400 mcg-vit K 25 mcg tablet (Adults Multivitamin) omeprazole 40 mg PO DAILY 12/20/19 04/17/22 Unknown History pravastatin 10 mg PO DAILY 12/20/19 04/17/22 Unknown History aspirin 81 mg tablet 81 mg PO DIRECTED 09/21/21 04/17/22 Unknown History furosemide 20 mg tablet (Lasix) 20 mg PO DIRECTED 09/21/21 04/17/22 Unknown History Allergies Allergy/AdvReac Type Severity Reaction Status Date / Time No Known Allergies Allergy Verified 09/07/24 11:12 [facility], [facility] Past Medical History Medical History Back pain CAD (coronary artery disease) CHF (congestive heart failure) Chronic renal failure COPD (chronic obstructive pulmonary disease) Diabetes type 2, controlled GERD (gastroesophageal reflux disease) HTN (hypertension) PSVT (paroxysmal supraventricular tachycardia) Surgical History Surgical History AICD (automatic cardioverter/defibrillator) present Pacemaker Stented coronary artery Social History Social History Smoking status: Current every day smoker Substance use: never Substance use type: does not use Living arrangements: with family Course Vital Signs Vital signs: Vital Signs Temperature 36.4 C 09/07/24 10:17 Pulse Rate 62 09/07/24 10:17 Respiratory Rate 20 09/07/24 10:17 Blood Pressure 96/58 L 09/07/24 10:17 Pulse Oximetry 95 09/07/24 10:17 Oxygen Delivery Room Air 09/07/24 10:17 Temperature 36.5 C 09/07/24 15:00 Pulse Rate 59 L 09/07/24 15:16 Respiratory Rate 16 09/07/24 15:16 Blood Pressure 110/77 09/07/24 15:16 Pulse Oximetry 99 09/07/24 15:16 Oxygen Delivery Room Air 09/07/24 10:17 Medical Decision Making Vital Signs Vital Signs: Vital Signs Temperature 36.4 C 09/07/24 10:17 Pulse Rate 62 09/07/24 10:17 Respiratory Rate 20 09/07/24 10:17 Blood Pressure 96/58 L 09/07/24 10:17 Pulse Oximetry 95 09/07/24 10:17 Oxygen Delivery Room Air 09/07/24 10:17 Temperature 36.5 C 09/07/24 15:00 Pulse Rate 59 L 09/07/24 15:16 Respiratory Rate 16 09/07/24 15:16 Blood Pressure 110/77 09/07/24 15:16 Pulse Oximetry 99 09/07/24 15:16 Oxygen Delivery Room Air 09/07/24 10:17 ECG Data EKG #1: Attestation: I personally reviewed and interpreted this ECG as follows: ECG completion date: 09/07/24 Interpretation: SINUS BRADYCARDIA AT 54 BEATS PER MINUTE, FIRST-DEGREE HEART BLOCK, POOR R-WAVE PROGRESSION, 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 Patient Language: Lithuanian Prescriptions: No Action Adult Low Dose Aspirin 81 mg PO DAILY Adults Multivitamin 18 mg iron-400 mcg-25 mcg Tablet 1 tablet PO DAILY Nitrostat 0.4 mg sublingual DIRECTED amiloride 5 mg PO DAILY amiodarone 200 mg PO DAILY Rx Instructions: 1 tab on odd days and 2 tab on even days budesonide 80 mcg inhalation BID cholecalciferol (vitamin D3) 25 mcg BYMOUTH DAILY doxazosin 8 mg PO DAILY gabapentin 100 mg PO DAILY lisinopril 40 mg PO DAILY metoprolol succinate 200 mg PO DAILY omeprazole 40 mg PO DAILY pravastatin 10 mg PO DAILY Adult Low Dose Aspirin 81 mg Tablet 81 mg PO DIRECTED furosemide [Lasix] 20 mg Tablet 20 mg PO DIRECTED doxycycline monohydrate 100 mg tablet 100 mg PO BID Qty: 20 0RF Rx Instructions: V.A. patient needs Antibiotics filled as soon as possible to treat infection. cefdinir 300 mg capsule 300 mg PO Q12H Qty: 20 0RF Rx Instructions: V.A. patient needs Antibiotics filled as soon as possible to treat infection. Follow-up/Referrals: [facility] [Primary Care Provider] -
--- NOTE | 2024-09-07 11:46 | ECG_ITS ---
Test Date: 2024-09-07 12:08:39 Measurements Intervals [place] Rate: 54 P: 43 [place]: 212 QRS: 87 QRSD: 144 T: 74 QT: 444 QTc: 421 Interpretive Statements SINUS BRADYCARDIA WITH FIRST DEGREE AV BLOCK LEFT BUNDLE BRANCH BLOCK ABNORMAL ECG No previous ECG available for comparison Electronically Signed On 09-07-2024 13:36:55 CDT by Eric Ling D.O.
--- NOTE | 2024-09-09 15:09 | ED_ITS ---
HPI - General Adult General Chief complaint: Overdose Stated complaint: took double dose of B/P meds Time Seen by Provider: 09/07/24 11:05 Source: patient Mode of arrival: ambulatory Limitations: no limitations Related Data Home Medications ?Medication ?Instructions ?Recorded ?Confirmed ?Last Taken ?Type Adult Low Dose Aspirin 81 mg PO DAILY 12/20/19 04/17/22 Unknown History Nitrostat 0.4 mg sublingual DIRECTED 12/20/19 04/17/22 Unknown History amiloride 5 mg PO DAILY 12/20/19 04/17/22 Unknown History amiodarone 200 mg PO DAILY 12/20/19 04/17/22 Unknown History budesonide 80 mcg inhalation BID 12/20/19 04/17/22 Unknown History cholecalciferol (vitamin D3) 25 mcg BYMOUTH DAILY 12/20/19 04/17/22 Unknown History doxazosin 8 mg PO DAILY 12/20/19 04/17/22 Unknown History gabapentin 100 mg PO DAILY 12/20/19 04/17/22 Unknown History lisinopril 40 mg PO DAILY 12/20/19 04/17/22 Unknown History metoprolol succinate 200 mg PO DAILY 12/20/19 04/17/22 Unknown History multivit with minerals-iron 18 1 tablet PO DAILY 12/20/19 04/17/22 Unknown History mg-folic ac 400 mcg-vit K 25 mcg tablet (Adults Multivitamin) omeprazole 40 mg PO DAILY 12/20/19 04/17/22 Unknown History pravastatin 10 mg PO DAILY 12/20/19 04/17/22 Unknown History aspirin 81 mg tablet 81 mg PO DIRECTED 09/21/21 04/17/22 Unknown History furosemide 20 mg tablet (Lasix) 20 mg PO DIRECTED 09/21/21 04/17/22 Unknown History Allergies Allergy/AdvReac Type Severity Reaction Status Date / Time No Known Allergies Allergy Verified 09/07/24 11:12 Review of Systems Review of Systems: All systems reviewed & are unremarkable except as noted in HPI and below PMFSH Past Medical History Medical History Chronic renal failure Diabetes type 2, controlled PSVT (paroxysmal supraventricular tachycardia) GERD (gastroesophageal reflux disease) Back pain CHF (congestive heart failure) HTN (hypertension) CAD (coronary artery disease) COPD (chronic obstructive pulmonary disease) Surgical History Surgical History Pacemaker AICD (automatic cardioverter/defibrillator) present Stented coronary artery Social History Social History Smoking status: Current every day smoker Substance use: never Substance use type: does not use Living arrangements: with family Exam Narrative: General appearance: Well-developed, well-nourished Skin: Normal color Head: Normocephalic, nontraumatic Eyes: Clear conjunctiva ENT: Oropharynx normal, ears normal, nose normal Neck: Supple, nontender Chest and respiratory: Airway patent, no respiratory distress, no accessory muscle use Heart: Regular rate/rhythm Abdomen: Soft, nontender, no organomegaly, quiet bowel sounds Vascular: Normal peripheral pulses, normal capillary refill. 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 tested, no gross motor deficit Course Vital Signs Vital signs: Vital Signs Temperature 36.4 C 09/07/24 10:17 Pulse Rate 62 09/07/24 10:17 Respiratory Rate 20 09/07/24 10:17 Blood Pressure 96/58 L 09/07/24 10:17 Pulse Oximetry 95 09/07/24 10:17 Oxygen Delivery Room Air 09/07/24 10:17 Temperature 36.8 C 09/07/24 15:45 Pulse Rate 66 09/07/24 15:46 Respiratory Rate 18 09/07/24 15:46 Blood Pressure 129/62 09/07/24 15:46 Pulse Oximetry 97 09/07/24 15:46 Oxygen Delivery Room Air 09/07/24 15:45 Medical Decision Making Vital Signs Vital Signs: Vital Signs Temperature 36.4 C 09/07/24 10:17 Pulse Rate 62 09/07/24 10:17 Respiratory Rate 20 09/07/24 10:17 Blood Pressure 96/58 L 09/07/24 10:17 Pulse Oximetry 95 09/07/24 10:17 Oxygen Delivery Room Air 09/07/24 10:17 Temperature 36.8 C 09/07/24 15:45 Pulse Rate 66 09/07/24 15:46 Respiratory Rate 18 09/07/24 15:46 Blood Pressure 129/62 09/07/24 15:46 Pulse Oximetry 97 09/07/24 15:46 Oxygen Delivery Room Air 09/07/24 15:45 Critical Care Time Critical Care Time Critical Care Time: No Discharge Plan Discharge Clinical Impression: Accidental medication overdose Patient Disposition: Home Condition: Improved Instructions: Hypotension (ED) Additional Instructions: Return if symptoms are worsening , call your family physician for appointment, take Tylenol as as needed for aches and pain, continue home medications. Patient Language: Nepali Prescriptions: No Action Adult Low Dose Aspirin 81 mg PO DAILY Adults Multivitamin 18 mg iron-400 mcg-25 mcg Tablet 1 tablet PO DAILY Nitrostat 0.4 mg sublingual DIRECTED amiloride 5 mg PO DAILY amiodarone 200 mg PO DAILY Rx Instructions: 1 tab on odd days and 2 tab on even days budesonide 80 mcg inhalation BID cholecalciferol (vitamin D3) 25 mcg BYMOUTH DAILY doxazosin 8 mg PO DAILY gabapentin 100 mg PO DAILY lisinopril 40 mg PO DAILY metoprolol succinate 200 mg PO DAILY omeprazole 40 mg PO DAILY pravastatin 10 mg PO DAILY Adult Low Dose Aspirin 81 mg Tablet 81 mg PO DIRECTED furosemide [Lasix] 20 mg Tablet 20 mg PO DIRECTED doxycycline monohydrate 100 mg tablet 100 mg PO BID Qty: 20 0RF Rx Instructions: V.A. patient needs Antibiotics filled as soon as possible to treat infection. cefdinir 300 mg capsule 300 mg PO Q12H Qty: 20 0RF Rx Instructions: V.A. patient needs Antibiotics filled as soon as possible to treat infection. Follow-up/Referrals: [facility] [Primary Care Provider] -
== END 2024-09-07 15:45 | disposition home or self-care (01) ==
PROVIDERS: Emergency Provider Emergency Medicine
DX: T65.891A Toxic effect of other specified substances, accidental (unintentional), initial encounter (principal); I25.10 Atherosclerotic heart disease of native coronary artery without angina pectoris; E11.22 Type 2 diabetes mellitus with diabetic chronic kidney disease; I13.0 Hypertensive heart and chronic kidney disease with heart failure and stage 1 through stage 4 chronic kidney disease, or unspecified chronic kidney disease; N18.9 Chronic kidney disease, unspecified; I50.9 Heart failure, unspecified
CPT/HCPCS: 93005; 96360; 96361; 99283; J7030

== ENCOUNTER 2024-11-05 14:13 | Emergency (ER) | payer OTHER, SELFPAY ==
--- NOTE | ~2024-11-05 | CT_ITS ---
EXAMINATION: CT abdomen pelvis w con DATE: 11/05/2024 16:08 INDICATION: Right groin pain TECHNIQUE: Computed tomography (CT) of the abdomen and pelvis was performed with 100 mL Omnipaque-350 intravenous contrast. Automated exposure control and iterative reconstruction technique were employe d. The dose-length product was 1061.95 mGy-cm. COMPARISON: Chest CT dated 12/20/2019 FINDINGS: No significant interval change in a 5.4 x 1.6 cm oblong nodular opacity at the posterior sulcus of th e left lower lobe consistent with round atelectasis. Additional linear discoid atelectasis at the dep endent basilar aspect of the bilateral lower lobes. Mild cardiomegaly. Atherosclerotic coronary arter y calcific lesions. Dual lead pacemaker/AICD seen with leads projecting over the expected locations o f the right atrial appendage and right ventricular outflow tract on the rip sawyer topogram. No pleural or pericardial effusion. Liver, gallbladder, spleen, pancreas and bilateral adrenal glands are normal. Bilateral renal cysts t he largest on the right measuring 6.7 cm. Bladder is normal. Marked prostatomegaly measuring 8.6 x 7. 8 x 7.3 cm. Bowels including the appendix are normal. No free intraperitoneal gas or fluid within the abdomen or pelvis. There is a tubular region of high attenuation extending craniocaudally along the right inguinal canal with soft tissue density. This was imaged on immediately prior scrotal ultrasoun d with appearance most consistent with evolving hematoma which would account for the increased densit y. There is some stranding near the entrance to the right inguinal canal which could similarly be rel ated to small amount of hemorrhage and changes related to recent reported cardiac catheterization ollie sandra change of prior inguinal hernia repair. No pathologically enlarged abdominal or pelvic lymphadeno rob. Very small fat-containing umbilical hernia. Ectatic infrarenal abdominal aorta measuring up to 3.0 cm in maximal diameter. Severe lumbar spondylosis. Cystic changes at the anterosuperior left fem oral head neck junction which could relate to chronic femoral acetabular impingement given the bilate ral decreased offsets of the bilateral femoral head neck junctions. IMPRESSION: 1. Tubular soft tissue density extending craniocaudally along the right inguinal canal with both a de nsity and the appearance on earlier scrotal ultrasound was consistent with an evolving hematoma. No h emoperitoneum or other acute intra-abdominal/pelvic process. 2. Marked prostatomegaly. Reviewed, dictated and finalized at location A. IMPRESSION: 1. Tubular soft tissue density extending craniocaudally along the right inguina l canal with both a density and the appearance on earlier scrotal ultrasound wa s consistent with an evolving hematoma. No hemoperitoneum or other acute intra- abdominal/pelvic process. 2. Marked prostatomegaly.
--- NOTE | ~2024-11-05 | US_ITS ---
EXAMINATION: US scrotum doppler DATE: 11/05/2024 14:56 INDICATION: Right testicular pain and swelling post recent cardiac catheterization TECHNIQUE: Testicular sonogram utilizing grayscale and Doppler COMPARISON: None. FINDINGS: The right testis measures 2.7 x 2.3 x 1.7 cm. The left testis measures 2.7 x 2.1 x 1.7 cm. Symmetric normal grayscale appearance to both testes. There is normal vascular flow to both testes. The right e pididymis is normal with normal vascular flow. The left epididymis is normal with normal vascular jaquan w. There is no varicocele or hydrocele. There is a complex very hypoechoic fluid collection with mult iple thin echogenic internal septations extending proximally from the scrotum with appearance most co nsistent with a hematoma. A longitudinal image was not obtained to assess length however the collecti on measures up to 4.1 x 2.1 cm maximal transaxial dimensions. IMPRESSION: 1. 4.1 x 2.1 cm with likely complex fluid collection with appearance most consistent with a hematoma extending within the right inguinal canal proximal to the scrotum. 2. Otherwise unremarkable scrotal ultrasound with normal testes and epididymides. Reviewed, dictated and finalized at location A. IMPRESSION: 1. 4.1 x 2.1 cm with likely complex fluid collection with appearance most cons istent with a hematoma extending within the right inguinal canal proximal to th e scrotum. 2. Otherwise unremarkable scrotal ultrasound with normal testes and epididymide s.
[2024-11-05 14:13] VITALS: BP 108/60; PULSE 63; RESP 16; TEMP 36.3; O2SAT 99
--- NOTE | 2024-11-05 14:29 | ED_ITS ---
HPI - Male Genitourinary General Chief complaint: Urogenital-Male Stated complaint: testicular swelling Time Seen by Provider: 11/05/24 14:21 Source: patient Mode of arrival: ambulatory Limitations: no limitations History of Present Illness HPI Narrative: Patient is a 69-year-old male with right testicle pain and tightening of the spermatic cord and testicle over the past 2 weeks. Patient had a heart catheterization in the near vicinity in the past 2 weeks. [facility] and [facility]. He was given steroids for swelling of the scrotum by the [facility] recently. No antibiotics have been given so far. MD Complaint: testicle pain ( Right) and testicle swelling ( right) Onset (ago): week(s) (2) Duration: constant and progressively worsening Location: right testicle Radiation: right inguinal region Severity: mild Severity scale (1-10): 4 Quality: sharp Relieving factors: none Exacerbating factors: palpation and movement Context: recent surgery Associated symptoms: Reports swelling Related Data Home Medications ?Medication ?Instructions ?Recorded ?Confirmed ?Last Taken ?Type Adult Low Dose Aspirin 81 mg PO DAILY 12/20/19 04/17/22 Unknown History Nitrostat 0.4 mg sublingual DIRECTED 12/20/19 04/17/22 Unknown History amiloride 5 mg PO DAILY 12/20/19 04/17/22 Unknown History amiodarone 200 mg PO DAILY 12/20/19 04/17/22 Unknown History budesonide 80 mcg inhalation BID 12/20/19 04/17/22 Unknown History cholecalciferol (vitamin D3) 25 mcg BYMOUTH DAILY 12/20/19 04/17/22 Unknown History doxazosin 8 mg PO DAILY 12/20/19 04/17/22 Unknown History gabapentin 100 mg PO DAILY 12/20/19 04/17/22 Unknown History lisinopril 40 mg PO DAILY 12/20/19 04/17/22 Unknown History metoprolol succinate 200 mg PO DAILY 12/20/19 04/17/22 Unknown History multivit with minerals-iron 18 1 tablet PO DAILY 12/20/19 04/17/22 Unknown History mg-folic ac 400 mcg-vit K 25 mcg tablet (Adults Multivitamin) omeprazole 40 mg PO DAILY 12/20/19 04/17/22 Unknown History pravastatin 10 mg PO DAILY 12/20/19 04/17/22 Unknown History aspirin 81 mg tablet 81 mg PO DIRECTED 09/21/21 04/17/22 Unknown History furosemide 20 mg tablet (Lasix) 20 mg PO DIRECTED 09/21/21 04/17/22 Unknown History Allergies Allergy/AdvReac Type Severity Reaction Status Date / Time No Known Allergies Allergy Verified 11/05/24 14:36 Review of Systems 2 Review of Systems: All systems reviewed & are unremarkable except as noted in HPI and below Constitutional: Constitutional: Reports no additional constitutional complaints Eyes: Eyes: Reports no additional eye complaints ENT: Reports system reviewed and no additional complaints, except as documented Cardiovascular: Cardiovascular: Reports no additional cardiovascular complaints Respiratory: Respiratory: Reports no additional respiratory complaints Gastrointestinal: Gastrointestinal: Reports no additional gastrointestinal complaints Genitourinary: Genitourinary: Reports no additional male genitourinary complaints Musculoskeletal: Musculoskeletal: Reports no additional musculoskeletal complaints Integumentary/Breasts: Skin/Breast: Reports system reviewed and no additional complaints, except as docu Neurologic: Reports system reviewed and no additional complaints, except as documented Psychiatric: Psychiatric: Reports no additional psychiatric complaints Endocrine: Endocrine: Reports no additional endocrine complaints Hematologic/Lymphatic: Hematologic/Lymphatic: Reports no additional hematologic/lymphatic complaints Allergic/Immunologic: Allergic/Immunologic: Reports no additional allergic/immunologic complaints PMFSH Past Medical History Medical History Chronic renal failure Diabetes type 2, controlled PSVT (paroxysmal supraventricular tachycardia) GERD (gastroesophageal reflux disease) Back pain CHF (congestive heart failure) HTN (hypertension) CAD (coronary artery disease) COPD (chronic obstructive pulmonary disease) Surgical History Surgical History Pacemaker AICD (automatic cardioverter/defibrillator) present Stented coronary artery Social History Social History Smoking status: Current every day smoker Substance use: never Substance use type: does not use Living arrangements: with family Exam 2 Const: General: healthy appearing Nutritional Appearance: well nourished Limitations: no limitations HENMT: Head: normal to inspection Ears: TM's normal bilaterally F vannessa/Nose/Sinus: Normal external nose present Eyes: Conjunctivae: conjunctivae normal Pupils: Equal, round and reactive pupils present EOM: EOMs intact bilaterally Neck: Neck: normal visual inspection Chest: Chest palpation & inspection: normal inspection of the chest Resp: Effort & Inspection: normal respiratory effort and not labored A uscultation: clear to auscultation bilaterally and no crackles Cardio: Rate: regular rate Rhythm: regular rhythm Heart sounds: no murmurs GI: Inspection: non-distended GI Palp: Yes Soft to palpation and No Tenderness to palpation present (GI) Auscultation: normal bowel sounds : General: Yes bladder normal to palpation Male General Exam: No normal external exam ( right testicle appears elevated in nature) Penis: Yes normal penis Scrotum: scrotum normal Testes: abnormal, epididymal tenderness and testicular tenderness Back/Spine/Pelvis: Back: no CVA tenderness Skin: General skin exam: normal color Rashes: no rashes Wounds: no wounds Neuro: General: patient oriented x3, moves all extremities and no meningeal signs Cranial nerves: Yes CN's II-XII intact bilaterally Speech: normal speech Gait exam (Neuro): Normal gait present Other: NIH is 0, GCS is 15 Extrem: General: normal to inspection Other: Right lower extremity has normal motor function and neurovascular function without deficits Psych: Mental Status: mental status grossly normal Affect: normal affect Attitude: cooperative Course Vital Signs Vital signs: Vital Signs Temperature 36.3 C L 11/05/24 14:13 Pulse Rate 63 11/05/24 14:13 Respiratory Rate 16 11/05/24 14:13 Blood Pressure 108/60 11/05/24 14:13 Pulse Oximetry 99 11/05/24 14:13 Oxygen Delivery Room Air 11/05/24 14:13 Temperature 36.3 C L 11/05/24 14:13 Pulse Rate 63 11/05/24 14:13 Respiratory Rate 16 11/05/24 14:13 Blood Pressure 108/60 11/05/24 14:13 Pulse Oximetry 99 11/05/24 14:13 Oxygen Delivery Room Air 11/05/24 14:13 MDM - Male Genitourinary MDM Narrative Medical decision making narrative: patient is a 69-year-old male with a right testicle pain and swelling over the past 2 weeks. He had a heart catheterization in the near area of the lower abdomen a couple weeks ago as well. We will do an ultrasound stat for testicle studies. Ultrasound was negative for acute process of the testicles however there is a possible abscess formation in the near vicinity. We will need to get a CT scan of the abdomen and pelvis for further evaluation. Will check labs. Ultrasound and CT scan correlate with a hematoma of the right groin. It is leaning on the right inguinal canal. I discussed the case with Cardiology and they will call him tomorrow to get an ultrasound done in the next 1-2 days for comparison. We will send patient with a CD disc of current pictures. we reviewed that his right lower extremity distally to the hematoma is neurovascularly intact and no motor deficits. Lab Data Attestation: I reviewed the patient's lab results. 11/05/24 15:14 11/05/24 15:14 Labs: Lab Results 11/05/24 11/05/24 Range/Units 14:58 15:14 WBC 10.3 (4.8-10.8) K/mm3 RBC 4.21 L (4.70-6.10) M/mm3 Hgb 12.4 (12.4-15.3) g/dL Hct 38.7 (37.0-46.0) % MCV 91.9 (78.0-102.0) fL MCH 29.5 (27.0-31.0) pg MCHC 32.0 (32-36) g/dL RDW 15.3 H (11.6-14.4) % Plt Count 336 (150-420) K/mm3 MPV 9.2 (8.7-11.0) fl Immature Gran % (Auto) 0.8 H (0.0-0.0) % Neut % (Auto) 61.6 (50.0-70.0) % Lymph % (Auto) 24.4 (18.0-42.0) % Casey % (Auto) 6.6 (2.0-11.0) % Eos % (Auto) 5.9 (1.0-6.0) % Baso % (Auto) 0.7 (0.0-1.0) % Lymph # (Auto) 2.51 (1.10-4.50) K/mm3 Casey # (Auto) 0.68 (0.10-0.90) K/mm3 Eos # (Auto) 0.61 H (0.02-0.50) K/mm3 Baso # (Auto) 0.07 (0.00-0.10) K/mm3 Abs Immat Gran (auto) 0.08 H (0.00-0.00) K/mm3 Absolute Neuts (auto) 6.35 (1.70-7.20) K/mm3 Absolute Nucleated RBC 0.00 (0.00-0.00) K/mm3 Nucleated RBC % 0.0 (0-0.0) % PT 11.2 (9.50-12.1) Seconds INR 1.0 APTT 26.2 (23.9-30.70) Sec Sodium 139 (137-145) mmol/L Potassium 3.8 (3.4-5.0) mmol/L Chloride 104 (98-107) mmol/L Carbon Dioxide 30 (22-30) mmol/L Anion Gap 5 (4-12) mmol/L BUN 27 H (9-20) mg/dL Creatinine 1.35 H (0.7-1.3) mg/dL Estim Creat Clear Calc 54 ml/min Estimated GFR 52 L (59 - ) Glucose 112 H (65-110) mg/dL Calculated Osmolality 294 (285-295) mOsm/kg Lactic Acid 1.7 (0.4-2.0) mmol/L Calcium 9.2 (8.4-10.2) mg/dL Total Bilirubin 0.4 (0.2-1.3) mg/dL AST 20 (17-59) U/L ALT 19 (6-50) U/L Alkaline Phosphatase 51 (38-126) U/L Total Protein 6.9 (6.3-8.2) g/dL Albumin 4.2 (3.5-5.1) g/dL Urine Color Light yellow (Yellow) Urine Appearance Clear (Clear) Urine pH 6.0 (5.0-8.0) Ur Specific [place] <= 1.005 L (1.010-1.020) Urine Protein Negative (Negative) Urine Glucose (UA) Negative (Negative) Urine Ketones Negative (Negative) Ur Blood (Man) Negative (Negative) Urine Nitrate Negative (Negative) Urine Bilirubin Negative (Negative) Urine Urobilinogen 0.2 (0.2-1.0) mg/dL Leukocyte Esterase Rfl 2+ H (Negative) MARIO/UL Urine RBC 0-2 (0-2) /hpf Urine WBC 4-6 H (0-3) /hpf Urine Bacteria Trace (None) /hpf Imaging Data Attestation: I personally reviewed and interpreted this imaging study as follows: Radiologist's impression: ultrasound of the scrotal tissue shows IMPRESSION: 1. 4.1 x 2.1 cm with likely complex fluid collection with appearance most consistent with a hematoma extending within the right inguinal canal proximal to the scrotum. 2. Otherwise unremarkable scrotal ultrasound with normal testes and epididymides. CT scan of the abdomen and pelvis with contrast shows IMPRESSION: 1. Tubular soft tissue density extending craniocaudally along the right inguinal canal with both a density and the appearance on earlier scrotal ultrasound was consistent with an evolving hematoma. No hemoperitoneum or other acute intra- abdominal/pelvic process. 2. Marked prostatomegaly. Discharge Plan Discharge Clinical Impression: Acute UTI Groin hematoma Qualifiers: Encounter type: initial encounter Qualified Code(s): S30.1XXA - Contusion of abdominal wall, initial encounter Patient Disposition: Home Condition: Stable Instructions: Hematoma (ED) Additional Instructions: please make sure that cardiology has called you tomorrow to set up an ultrasound of your right groin area in the next 1-2 days. You should hear from the cardiology office by tomorrow. Patient Language: Serbian Prescriptions: New cephalexin 500 mg capsule 500 mg PO BID 7 Days Qty: 14 0RF No Action Adult Low Dose Aspirin 81 mg PO DAILY Adults Multivitamin 18 mg iron-400 mcg-25 mcg Tablet 1 tablet PO DAILY Nitrostat 0.4 mg sublingual DIRECTED amiloride 5 mg PO DAILY amiodarone 200 mg PO DAILY Rx Instructions: 1 tab on odd days and 2 tab on even days budesonide 80 mcg inhalation BID cholecalciferol (vitamin D3) 25 mcg BYMOUTH DAILY doxazosin 8 mg PO DAILY gabapentin 100 mg PO DAILY lisinopril 40 mg PO DAILY metoprolol succinate 200 mg PO DAILY omeprazole 40 mg PO DAILY pravastatin 10 mg PO DAILY Adult Low Dose Aspirin 81 mg Tablet 81 mg PO DIRECTED furosemide [Lasix] 20 mg Tablet 20 mg PO DIRECTED doxycycline monohydrate 100 mg tablet 100 mg PO BID Qty: 20 0RF Rx Instructions: V.A. patient needs Antibiotics filled as soon as possible to treat infection. cefdinir 300 mg capsule 300 mg PO Q12H Qty: 20 0RF Rx Instructions: V.A. patient needs Antibiotics filled as soon as possible to treat infection. Follow-up/Referrals: UNKNOWN,DOCTOR [Non-Staff] - Time of Disposition: 17:48
[2024-11-05 15:13] LABS: Add Urine Microscopic? YES; Appearance Urine Clear (Clear); Glucose Urine UA Negative (Negative); Leukocyte Esterase Ur 2+ LEU/UL (Negative); Nitrate Urine Negative (Negative); Specific Grav Ur <= 1.005 (1.010-1.020)
[2024-11-05 15:34] LABS: Hematocrit 38.7 % (37.0-46.0); Hemoglobin 12.4 g/dL (12.4-15.3); Immature Granulocyte Percent A 0.8 % (0.0-0.0); Lymphocytes Absolute Auto 2.51 K/mm3 (1.10-4.50); Mean Corpuscular HGB Conc 32.0 g/dL (32-36); Mean Corpuscular Hemoglobin 29.5 pg (27.0-31.0); Mean Corpuscular Volume 91.9 fL (78.0-102.0); Nucleated Red Blood Cells Absolute Auto 0.00 K/mm3 (0.00-0.00); Nucleated Red Blood Cells Perc 0.0 % (0-0.0); Platelet Count Result 336 K/mm3 (150-420); Red Blood Count 4.21 M/mm3 (4.70-6.10); White Blood Count 10.3 K/mm3 (4.8-10.8)
[2024-11-05 15:48] LABS: INR 1.0; Partial Thromboplastin Time 26.2 Sec (23.9-30.70); Prothrombin Time 11.2 Seconds (9.50-12.1)
--- OUTSIDE RECORDS SUMMARY | 2024-11-05 15:52 | XMS_ITS | Encounter Summary ---
Author Name [facility] ([place]) Organization [facility] [place] [place] Address [address] [place] [address] Care Team Providers Care Broker Associate Name Role Phone DANNY CONTRERAS Primary Care Provider Unavailabl e Selected Encounter This section includes the information on record at [place] for the Encounter. Date/Time Encounter Type Encounter Description Reason Pro vider Source Sep 23, 2024 02:16 PM Outpatient Encounter COMMUNITY CARE CONSULT IHE Encounter Template Text not used by [place] Plan of Treatment: Future Appointments (+ 6 months) and Future Tests (+/- 45 days) The Plan of Treatment section includes future care activities for the patient from all [place] treatmentfacilities. This section includes future appointments and future orders which are active, pending or scheduled. Future Appointments This section includes appointments that were scheduled to occur 6 months from the date of the Encounter, up to a maximum of 20 appointments. The data comes from all [place] treatment facilities. Appointment Date/Time Appointment Type Appointme nt Facility Name Oct 02, 2024 11:00 AM AMBULATORY - NONE [facility] Oct 11, 2024 08:30 AM AMBULATORY - MEDICINE [facility] Oct 21, 2024 10:00 AM AMBULATORY - NONE [facility] Oct 23, 2024 10:00 AM AMBULATORY - SURGERY [facility] Oct 23, 2024 10:05 AM AMBULATORY - NONE [facility] Nov 06, 2024 08:30 AM AMBULATORY - NONE [facility] Nov 28, 2024 09:30 AM AMBULATORY - NONE [facility] Jan 21, 2025 10:00 AM AMBULATORY - NONE [facility] Feb 05, 2025 11:30 AM AMBULATORY - SURGERY [facility] Feb 05, 2025 11:35 AM AMBULATORY - NONE [facility] Feb 27, 2025 09:30 AM AMBULATORY - NONE [facility] Mar 06, 2025 09:30 AM AMBULATORY - MEDICINE [facility] Active, Pending, and Scheduled Orders This section includes a listing of several types of active, pending, and scheduled orders, including clinic medications orders, diagnostic test orders, procedure orders and consult orders; where the start date of the order is 45 days before the date of the Encounter or 45 days after the date of theEncounter. The data comes from all [place] treatment facilities. Test Date/Time Test Type Test Details Facility Name August 23, 2024 09:56 AM Consult Order COMMUNITY CARE-DERMATOLOGY [facility] Oct 03, 2024 01:35 PM Consult Order COMMUNITY CARE-DS ROUTINE OPTOMETRY [facility] Oct 28, 2024 01:11 PM Consult Order PROSTHETIC S REQUEST - OUTPT [facility] Oct 30, 2024 12:22 PM Consult Order COMMUNITY [facility]-VASCULAR SURGERY Cons [facility] Lab Results: +/- 30 days of the encounter This section includes the Chemistry and Hematology Lab Results on record with VA for the patient. Radiology Reports and Pathology Reports are provided separately, in subsequent sections. Lab Results This section contains the Chemistry/Hematology Results that were resulted 30 days before or 30 daysafter the date of the Encounter. Date/Time Source Result Type Result - Unit Interpretation Reference Range Specimen Type Comment Aug 27, 2024 09:21 AM [facility] FOLATE (CONTRERAS) SERUM Specimen Type: SERUM Comment: Methotrexate and Leucovorin (folinic acid) interfere with the measurement of folate. Patients receiving these drugs should not be tested for folate by this method. Ordering Provider: DANNY CONTRERAS Report Released Date/Time: May 03, 2024 12:41 PM Reporting Lab: [facility] [address] [facility] [address] Performing Lab: [facility] [address] [facility] [address] FOLATE (CONTRERAS) >48.00 ng/mL 5.39-48.00 Aug 27, 2024 09:21 AM [facility] FERRITIN (CONTRERAS) SERUM Specimen Type: SERUM Comment: Methotrexate and Leucovorin (folinic acid) interfere with the measurement of folate. Patients receiving these drugs should not be tested for folate by this method. Ordering Provider: DANNY CONTRERAS Report Released Date/Time: May 24, 2024 09:08 AM Reporting Lab: [facility] [address] [facility] [address] Performing Lab: [facility] [address] [facility] [address] FERRITIN (CONTRERAS) 27.9 ng/mL 26.0-388.0 Aug 27, 2024 09:21 AM [facility] VITAMIN B12 (CONTRERAS) SERUM Speci men Type: SERUM Comment: Methotrexate and Leucovorin (folinic acid) interfere with the measurement of folate. Patients receiving these drugs should not be tested for folate by this method. Ordering Provider: DANNY CONTRERAS Report Released Date/Time: Jun 28, 2024 07:56 AM Reporting Lab: [facility] [address] [facility] [address] Performing Lab: [facility] [address] [facility] [address] VITAMIN B12 (CONTRERAS) 728 pg/mL 193-986 Aug 27, 2024 09:21 AM [facility] A1C % BLOOD Specimen Type: [...] Mar 07, 2024 10:28 AM Reporting Lab: [place] [address] [facility] [address] Performing Lab: [address] [address] A1C % 6.2 H 0.0-5.6 Aug 27, 2024 09:21 AM [facility] IRON PANEL SERUM Specimen T ype: SERUM Comment: TIBC may be inaccurate if patient is on iron dextran in the last 14 days. Ordering Provider: DANNY CONTRERAS Report Released Date/Time: Mar 07, 2024 10:32 AM Reporting Lab: [address] [address] Performing Lab: [address] [address] IRON 69 ug/dL 65-175 TOT IRON BINDING CAPAC 395 ug/dL 250-450 % IRON SATURATION 17 10-50 Aug 27, 2024 09:21 AM [facility] COMPREHENSIVE PNL PLASMA Specime n Type: PLASMA Comment: eGFR was calculated using the CKD-EPI Creatinine (2020) equation. Ordering Provider: DANNY CONTRERAS Report Released Date/Time: Mar 07, 2024 10:28 AM Reporting Lab: [address] [address] Performing Lab: [address] [address] ANION GAP 6 mmol/L 5-15 EGFR 54 [...] H 0.73-1.18 Aug 27, 2024 09:21 AM [facility] CBC W/DIFF BLOOD Specimen T ype: BLOOD No comment entered. Ordering Provider: DANNY CONTRERAS Report Released Date/Time: Mar 07, 2024 10:28 AM Reporting Lab: [address] [address] Performing Lab: [facility] [address] [facility] [address] WBC 7.6 10*3/uL 4.0-11.0 RBC 4.27 10*6/uL [...] ALL of a patient's completed or amended [place] Advance and Rescinded Directives. The entries below indicate that a directive exists for the patient, but an actual copy is not included with this document. The data comes from all [place] facilities. Date Advance Directives Provider Source August 13, 2013 ADVANCE DIRECTIVE MARITA SANDERS [facility] Oct 13, 1998 ADVANCE DIRECTIVE Jessica YOST [facility] Mar 14, 1994 ADVANCE DIRECTIVE YUMIKO HOLMAN [facility] Encounter Notes: All associated encounter notes This section contains the clinical notes associated to the Encounter. Date/Time Encounter Note(s) Provider Source Sep 23, 2024 02:20 PM NONVA NOTE: LOCAL TITLE: COMMUNITY CARE-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 REQUEST STANDARD TITLE: NONVA NOTE DATE OF NOTE: SEP 23, 2024@14:20 ENTRY DATE: SEP 23, 2024@14:20:54 AUTHOR: RACHELE DOEHRTY COSIGNER: URGENCY: STATUS: COMPLETED consult# [id number] [facility] [place] returned call to [facility] team regarding consult, requesting call back at earliest convience d/t his pain and this helping him /loli/ [facility] Signed: 09/23/2024 14:22 Receipt Acknowledged By: 09/25/2024 07:30 /loli/ GARY SANTOS [facility] 09/24/2024 09:22 /loli/ Dean Peng [facility] [employer] Worker RACHELE DOHERTY [facility]
--- OUTSIDE RECORDS SUMMARY | 2024-11-05 15:53 | XMS_ITS | Encounter Summary ---
Author Name [facility] Organization [facility] [place] Address [address] [place] [address] Care Team Providers Care Cutter Brake Lining Name Role Phone DRE CONTRERAS Primary Care Provider Unavailabl e Selected Encounter This section includes the information on record at [place] for the Encounter. Date/Time Encounter Type Encounter Description Reason Pro vider Source Nov 14, 2023 11:59 AM Outpatient Encounter ADMIN PAT ACTIVTIES (JYOTINONCT) IHE Encounter Template Text not used by [place] Plan of Treatment: Future Appointments (+ 6 months) and Future Tests (+/- 45 days) The Plan of Treatment section includes future care activities for the patient from all [place] treatmentfacilities. This section includes future appointments and future orders which are active, pending or scheduled. Future Appointments This section includes appointments that were scheduled to occur 6 months from the date of the Encounter, up to a maximum of 20 appointments. The data comes from all [place] treatment facilities. Appointment Date/Time Appointment Type Appointme nt Facility Name Dec 18, 2023 11:30 AM AMBULATORY - NONE [facility] Jan 02, 2024 02:30 PM AMBULATORY - SURGERY [facility] Jan 02, 2024 02:35 PM AMBULATORY - NONE [facility] Jan 08, 2024 04:00 PM AMBULATORY - MEDICINE [facility] Jan 16, 2024 11:00 AM [facility] Jan 17, 2024 02:30 PM [facility] Jan 22, 2024 09:00 AM [facility] Jan 23, 2024 09:30 AM [facility] Jan 31, 2024 08:00 AM [facility] Feb 16, 2024 01:00 PM [facility] Feb 19, 2024 02:15 AM AMBULATORY - NONE [facility] Feb 29, 2024 09:50 AM AMBULATORY - NONE [facility] Mar 07, 2024 10:00 AM AMBULATORY - MEDICINE [facility] Apr 10, 2024 11:30 AM [facility] Apr 10, 2024 11:35 AM AMBULATORY - NONE [facility] Lab Results: +/- 30 days of the encounter This section includes the Chemistry and Hematology Lab Results on record with [place] for the patient. Radiology Reports and Pathology Reports are provided separately, in subsequent sections. Lab Results This section contains the Chemistry/Hematology Results that were resulted 30 days before or 30 daysafter the date of the Encounter. Date/Time Source Result Type Result - Unit Interpretation Reference Range Specimen Type Comment Nov 14, 2023 12:12 PM [facility] A1C % BLOOD Specimen Type: [...] Nov 03, 2023 02:25 PM Reporting Lab: [address] [address] Performing Lab: [address] [address] A1C % 6.3 H 0.0-5.6 Nov 14, 2023 12:12 PM [facility] COMPREHENSIVE PNL PLASMA Specime n Type: PLASMA Comment: eGFR was calculated using the CKD-EPI Creatinine (2020) equation. Ordering Provider: DRE CONTRERAS Report Released Date/Time: Nov 03, 2023 02:25 PM Reporting Lab: [address] [address] Performing Lab: [address] [address] ANION GAP 8 mmol/L 5-15 EGFR 63 [...] H 0.67-1.17 Nov 14, 2023 12:12 PM [facility] CBC W/DIFF BLOOD Specimen T ype: BLOOD No comment entered. Ordering Provider: DRE CONTRERAS Report Released Date/Time: Nov 03, 2023 02:25 PM Reporting Lab: [address] [address] Performing Lab: [address] [address] WBC 7.6 10*3/uL 4.0-11.0 RBC 4.04 10*6/uL [...] Mar 14, 1994 ADVANCE DIRECTIVE YUMIKO HOLMAN [facility] Encounter Notes: All associated encounter notes This section contains the clinical notes associated to the Encounter. Date/Time Encounter Note(s) Provider Source Nov 14, 2023 11:59 AM PHYSICIAN NOTE: LOCAL TITLE: PROVIDER/MEDICATION RECONCILIATION STANDARD TITLE: PHYSICIAN NOTE DATE OF NOTE: NOV 14, 2023@11:59:04 ENTRY DATE: NOV 14, 2023@11:59:05 AUTHOR: DRE CONTRERAS EXP COSIGNER: URGENCY: STATUS: COMPLETED DEPARTMENT OF [facility] [address] [place], [place] [address] ORA DEL TORO NOV 14, 2023 [address], [place] [address] Patient: ORA DEL TORO (: 1955) A list of reconciled medications was mailed or sent via secure messaging to the /Caregiver. The following medication list was reviewed with the patient/caregiver: The /caregiver was counseled on new medications and/or medication changes. Potential risks, benefits, and alternative to medications prescribed were discussed with /caregiver who was given an opportunity to ask questions, which were answered to the best of my ability and seemingly to their satisfaction. [place]/caregiver was/were instructed to contact provider (means provided) with any concerns or questions. INCLUDED IN THIS LIST: Alphabetical list of active outpatient prescriptions dispensed from this [place] (local) and dispensed from another [place] or DoD facility (remote) as well as inpatient orders (local pending and active), local clinic medications, locally documented non-VA medications, and local prescriptions that have or been discontinued in the past 90 days. NOTE The display of VA prescriptions dispensed from another [place] or DoD facility (remote) is limited to active outpatient prescription entries matched to National Drug File at the originating site and may not include some items such as investigational drugs, compounds, etc. NOT INCLUDED IN THIS LIST: Medications self-entered by the patient into personal health records (i.e. Risk Ident) are not included in this list. Non-VA medications documented outside this [place], remote inpatient orders (regardless of status) and remote clinic medications are NOT included in this list. The patient and provider must always discuss medications the patient is taking, regardless of where the medication was dispensed or obtained. Patient safety alert: Medications and allergies from [facility] facilities may be incomplete. Reference [facility] for full list. Allergies/ADRs Facility Allergen (Reaction) -------- [facility] ATORVASTATIN (MUSCLE PAIN) [facility] CILOSTAZOL (HYPOTENSION) [facility] FERROUS SULFATE (ABDOMINAL PAIN) [facility] ROSUVASTATIN (INCREASED SERUM ALT (SGPT)) [facility] SIMVASTATIN (-) [facility] SPIRONOLACTONE (GYNECOMASTIA) [facility] FERROUS SULFATE (INDIGESTION) [facility] ROSUVASTATIN (LIVER ENZYMES ABNORMAL) [facility] SIMVASTATIN (MUSCLE PAIN) Med Reconciliation Patient is [...] Cholesterol FISH OIL 1000MG (500MG DHA/EPA) CAP,ORAL (NON-[facility]: [facility] Status: ACTIVE) 1000mg by mouth once a day Usually Taken for: Cholesterol FUROSEMIDE 40MG TAB (OUTPT Status: ACTIVE) Take one tablet by mouth dailyfor blood pressure/water pill Usually Taken for: Blood pressure/Water pill GABAPENTIN 600MG TAB (OUTPT Status: ACTIVE/SUSP) Take one tablet by mouth twice a day for pain/neuropathy Usually Taken for: Pain/Neuropathy LIDOCAINE 5% PATCH (OUTPT Status: ACTIVE) Idb3iitvsihykgdkaxzxreu,hairle ssareaoncedailyasneededpresspa tc lgpuicjugdnjhj51-51ydszoxjnriz atactivatetheadhesive. remove patch(es) after 12 hours and [...] 0.4MG SL TB (OUTPT Status: ) Dissolveonetabletunderthetongu bcjnjl9gnofnbgtzcanjryctpvyalu pain.ifnoimprovementafterthree dosesgotonearest emergency room. discard opened bottle after 6 months Usually Taken for: Heart OLODATEROL/TIOTROP 2.5MCG/ACTUAT 60D INH (OUTPT Status: ACTIVE) Femffk2qoajszfgtlkotydyclengum rtusingafterfinishingthetreleg y samplesperprovider Usually Taken for: Breathing [...] Taken for: Supplement VITAMIN B COMPLEX CAP,ORAL (NON-[facility]: [facility] Status: ACTIVE) 1 capsule by mouth [...] M.D. Date printed: NOV 14, 2023 12:17 [facility] DRE CONTRERAS [facility]
--- OUTSIDE RECORDS SUMMARY | 2024-11-05 15:53 | XMS_ITS | Clinical Summary ---
Author Organization [facility] Address [address] [place] [address] Care Team Providers Care Family Advocate Name Role Phone Yonathan Kellogg MD Unavailable [phone] Kaitlin Fuentes MD Unavailable [phone] Dre Boss MD Primary Care Provider [phone] Eduardo Foster MD Unavailable Unavailable Allergies Active Allergy Reactions Criticality Noted Date Comments 5-Alpha Reductase Inhibitors Unknown 023 Atorvastatin Myalgias 07/29/2019 Cilostazol Unknown 11/27/2020 Ferrous Sulfate Unknown 07/02/2017 INDIGESTION Rosuvastatin Unknown 07/02/2017 ABNORMAL LIVER ENZYMES Simvastatin Unknown 07/02/2017 MUSCLE PAIN Medications B Complex Cap capsule Take 1 capsule by mouth daily. Active coenzyme Q10 50 MG capsule Take 1 capsule (50 mg total) by mouth daily. Active multi vitamin/unemployment examiner als tablet Take 1 tablet by mouth daily. Active terbinafine 1 % cream Apply topically nightly at bedtime. Active aspirin 81 MG chewable tablet Chew 1 tablet (81 mg total) by mouth daily. Active ipratropium-a lbuterol 20-100 MCG/ACT inhaler Inhale 1 puff into the lungs 4 (four) times daily. Please provide assembled. Active aluminum hydroxide 320 MG/5ML suspension Take 5 mLs by mouth as needed (as needed). Active pravastatin 10 MG tablet Take 0.5 tablets (5 mg total) by mouth see administration instructions. Monday, Monday, Monday, Monday Active MENTHOL-METHY L SALICYLATE EX Apply 1 Application topically as needed (as needed). Active gabapentin 300 MG capsule Take 2 capsules (600 mg total) by mouth 2 (two) times a day. Active Trolamine Salicylate (ANALGESIC CREAM/ALOE EX) Apply 1 Application topically as needed (as needed). Active amiodarone 200 MG tablet Take 1 tablet (200 mg total) by mouth daily. 30 tablet 11 01/09/20 21 Active ezetimibe (ZETIA) 10 MG tablet Take 1 tablet (10 mg total) by mouth daily. Active fluticasone-s almeterol (ADVAIR DISKUS) 500-50 MCG/ACT inhaler Inhale 1 puff into the lungs 2 (two) times daily. Active albuterol sulfate HFA 108 (90 Base) MCG/ACT inhaler Inhale 2 puffs into the lungs every 6 (six) hours as needed for Wheezing. Active doxazosin (CARDURA) 4 MG tablet Take 1 tablet (4 mg total) by mouth nightly at bedtime. 90 tablet 4 08/09/19 24 Active montelukast (SINGULAIR) 10 MG tablet Take 1 tablet (10 mg total) by mouth daily. Active metoprolol succinate ER (TOPROL-XL) 50 MG 24 hr tabletIndicat ions:heart/bl ood pressure Take 0.5 tablets (25 mg total) by mouth daily. Indications: heart/blood pressure 90 tablet 4 09/20/19 25 Active furosemide (LASIX) 40 MG tablet Take 0.5 tablets (20 mg total) by mouth daily. 30 tablet 1 10/22/19 25 Active lisinopril (PRINIVIL) 5 MG tablet Take 0.5 tablets (2.5 mg total) by mouth daily. 30 tablet 2 10/22/19 25 Active methylPREDNIS olone, DELLA, (MEDROL DOSEPAK) 4 MG tablet Follow package directions 1 each 10/31/19 25 Active hydrocortison e (CORTIZONE) 1 % cream Apply topically 2 (two) times daily. Use on rash prn 14 g 1 10/31/19 25 Active Albuterol Sulfate, sensor, 108 (90 Base) MCG/ACT AEROSOL POWDER, BREATH ACTIVATED Inhale 2 puffs into the lungs every 6 (six) hours as needed (as needed). 2024 Discontinued furosemide (LASIX) 40 MG tablet Take 1 tablet (40 mg total) by mouth daily. 2024 Discontinued lisinopril (PRINIVIL) 5 MG tablet Take 1 tablet (5 mg total) by mouth daily. 2024 Discontinued Active Problems Problem Noted Date Diagnosed Date Abdominal aortic aneurysm (A AA) without rupture, unspecified part 01/31/2024 Trigger middle finger of right hand 11/02/2023 Trigger index finger of left hand 07/07/2022 Overview (07/07/2022): Added automatically from request for surgery [id number] Trigger middle finger of left hand 07/07/2022 Overview (07/07/2022): Added automatically from request for surgery [id number] Trigger ring finger of left hand 07/07/2022 Overview (07/07/2022): Added automatically from request for surgery [id number] Carotid artery disease without cerebral infarcti on 02/03/2022 Abnormal cardiovascular stress test 03/09/2021 Overview (04/07/2021): Medium area of severe intensity fixed defect consistent with infarct in the entire apex. Medium area of moderate to severe intensity predominantly fixed defect consistent with infarction with minimal miguel infarct ischemia in the anterior and anteroseptal wall Medium area of severe intensity fixed defect consistent with infarction in the inferior and inferoseptal wall. Left ventricle is severely dilated and the systolic function is severely reduced at EF is 24 %. Chest pain due to myocardial ischemia 02/13/2021 Right carotid bruit 01/22/2020 PAD (peripheral artery disease) 11/10/2017 Overview (10/12/2024): Stenting of arterial system of right leg Virtually no pulse in left arm Smoker 11/10/2017 Cardiomyopathy ([facility]/HCC [facility]) 11/10/2017 On amiodarone therapy 10/11/2017 Coronary artery disease invo lving [place] coronary artery of [place] heart without angina pectoris 07/03/2017 Old myocardial infarction, greater than 8 weeks 07/03/2017 Mixed hyperlipidemia 07/03/2017 Chronic systolic congestive heart failure (CMS/H CC [facility]) 07/03/2017 Primary hypertension 07/03/2017 S/P insertion of iliac artery stent 07/03/2017 VT (ventricular tachycardia) ([facility]) 0 07/02/2017 ICD (implantable cardioverter-defibrillator), lopez cunningham, in situ Overview (10/05/2017): SJM DC ICD implanted on 07/04/17 Myalgia due to statin Encounters Date Type Department Care Team Description 10/30/2024 Telephone [facility] [address] [place] [address] Ildefonso Mai MD Referral 10/30/2024 Telephone [facility] [address] [place] [address] Yonathan Kellogg MD Hives 10/24/2024 Telephone [facility] [address] [place] [address] Ildefonso Mai MD Schedule Procedure 10/22/2024 Telephone [facility] [address] [place] [address] Yonathan Kellogg MD Question 10/21/2024 9:52 AM CDT - 10/21/2024 4:44 PM CDT Hospital Encounter [facility] [address] [place] [address] Yonathan Kellogg MD Discharge Disposition: Home or Self Care (Routine Discharge) 10/21/2024 Travel 10/10/2024 Telephone [facility] [address] [place] [address] Yonathan Kellogg MD Referral 10/09/2024 Prep for Procedure [facility] [address] [place] [address] Yonathan Kellogg MD 10/08/2024 Telephone [facility] [address] [place] [address] Yonathan Kellogg MD Schedule Procedure 10/07/2024 3:45 PM CDT Office Visit [facility] [address] [place] [address] Yonathan Kellogg MD Follow Up 10/07/2024 3:30 PM CDT Allied Health/Nurse Visit [facility] [address] [place] [address] Yonathan Kellogg MD In Clinic Device Check 10/07/2024 Travel 10/07/2024 Telephone [facility] [address] [place] [address] Yonathan Kellogg MD Medication 09/10/2024 Telephone [facility] [address] [place] [address] Yonathan Kellogg MD Medication 09/09/2024 10:30 AM CDT Office Visit [facility] [address] [place] [address] Yonathan Kellogg MD Follow Up 09/09/2024 10:15 AM CDT Allied Health/Nurse Visit [facility] [address] [place] [address] Yonathan Kellogg MD In Clinic Device Check 09/09/2024 Telephone [facility] [address] [place] [address] Yonathan Kellogg MD Referral (MS AUTH) 09/09/2024 Telephone [facility] [address] [place] [address] Yonathan Kellogg MD Referral (MS AUTH) 09/09/2024 Travel 08/16/2024 Results Follow-Up [facility] [address] [place] [address] Lianet Morgan RN HEPATIC FUNCTION PANEL, TSH 08/15/2024 2:34 PM CDT - 08/15/2024 11:59 PM CDT Hospital Encounter [facility] [address] [place] [address] Yonathan Kellogg MD Discharge Disposition: Home or Self Care (Routine Discharge) 08/15/2024 2:00 PM CDT Office Visit [facility] [address] [place] [address] Yonathan Kellogg MD Follow Up 08/15/2024 1:45 PM CDT Allied Health/Nurse Visit [facility] [address] [place] [address] Yonathan Kellogg MD In Clinic Device Check 08/15/2024 Travel from Last 3 Months Family History Medical History Relation Comments Heart Disease Father Relation Status Comments Father Maternal Grandfather Maternal Grandmother Mother Paternal Grandfather Paternal Grandmother Social History Tobacco Use Types Packs/Day Years Used Date Smoking Tobacco: Every Day Cigarettes 2 50 Passive Smoke Exposure: Current Smokeless Tobacco: Never Tobacco Cessation:Ready to Q uit: Not Asked; Counseling Given: Not Answered Alcohol Use Standard Drinks/Week Comments Yes 1.7 (1 standard drink = 0.6 oz p ure alcohol) about a fifth / year AUDIT-C Answer Date Recorded Frequency of Alcohol Consumption Monthly or less 02/21/2018 Average Number of Drinks Not on file 018 Frequency of Binge Drinking Not on file 01/26 Sex and Gender Information Value Date Recorded Sex Assigned at Not on file Legal Sex Male 4:09 PM CDT Gender Identity Not on file Sexual Orientation Not on file Last Filed Vital Signs Vital Sign Reading Time Taken Comments Blood Pressure 143/61 10/21/2024 10:51 AM CDT Pulse 58 10/21/2024 10:51 AM CDT Temperature 36.3 C (97.3 F) 10/21/2024 10:51 AM CDT Respiratory Rate 13 10/21/2024 10:5 1 AM CDT Oxygen Saturation 94% 10/21/2024 10: 51 AM CDT Inhaled Oxygen Concentration - - Weight 106.7 kg (235 lb 3.7 oz) 07/28/2 025 10:08 AM CDT Height 172.7 cm (5' 7.99) 10/21/2024 1 0:08 AM CDT Body Mass Index 35.78 10/21/2024 10:08 AM CDT Plan of Treatment Upcoming Encounters Date Type Department Care Team (Late st Contact Info) Description 11/28/2024 9:30 AM CDT Appointment [facility] [address] [place] [address] Ildefonso Mai MD [address] [place] [address] 12/02/2024 11:00 AM CDT Allied Health/Nurse Visit [facility] [address] [address] Yonathan Kellogg MD [address] [place] [address] 12/02/2024 11:15 AM CDT Office [facility] [address] [place] [address] Yonathan Kellogg MD [address] [place] [phone] 01/01/2025 1:15 AM CDT Allied Health/Nurse Visit [facility] [address] [address] Yonathan Kellogg MD [address] [place] [address] Health Maintenance Due Date Last Done Comments Hepatitis C 1972 Lung Cancer Screening 2004 Zoster Vaccines (1 of 2) 2004 RSV Immunization or 60+ Years (1 - Risk 60-74 years 1-dose series) 2014 ASCVD LDL 05/06/2020 05/06/2019, 07/27/2018, 07/03/2017 COVID-19 Vaccine (1 - 2023-2 5 season) 2023 Pneumococcal Vaccine: 50+ Years (3 of 3 - PCV20 or PCV21) 12/13/2023 12/12/2018, 02/01/2017 PHQ-2 (Physician [address]) 03/27/2024 DTaP, Tdap and Td Vaccines ( 3 - Td or Tdap) 08/01/2028 08/01/2018, 06/02/2008 Colorectal Cancer Screening Colonoscopy (10 Years) 12/18/2030 12/18/2020, 12/18/2020 AAA SCREENING Completed 10/20/2020 Meningococcal B Vaccine Aged Out No l onger eligible based on patient's age to complete this topic Meningococcal Vaccine Aged Out No ahsan prakash eligible based on patient's age to complete this topic RSV Immunizations Under 20 Months Aged Out No longer eligible b ased on patient's age to complete this topic Medical Devices Implanted Type Area Dairy Products Maker Device Identifier Shelf Expiration Date Model / Serial / Lot Stark-Ellipse Dr-07/04/2017 Implanted:07/04 by Yonathan Kellogg MD (Quantity not on file) ICD [employer] [id number] Q / [id number] / Stark-Ra-2017 Implanted:07/04 by Yonathan Kellogg MD (Quantity not on file) Lead Implant [employer] [id number] 52 / [id number] / Stark-Rv-2017 Implanted:07/04 by Yonathan Kellogg MD (Quantity not on file) Lead Implant [employer] [id number] 8 / [id number] / Pv Wl [place] Vi[employer]ahn Vbx Right Common Iliac-12/21/2020 Implanted:Qty: 1 on 12/21/2020 by Aaron Rivera MD Stent Right: Iliac [employer] 05/05/2023 [id number] / [id number] / Optisure Df4 Lead-Icd - [id number] Implanted:Qty: 1 on 07/04/2017 by Yonathan Kellogg MD at [facility] [facility] [facility] [employer] 01/24/2018 [id number] 8 / [id number] / Tendril Mri Lead - [id number] Implanted:Qty: 1 on 07/04/2017 by Yonathan Kellogg MD at [facility] [employer] 05/17/2018 [id number]/ [id number] / [id number] / Tendril Mri Lead - [id number] Implanted:07/04 at [facility] (Quantity not on file) [facility] [employer] 05/17/2018 [id number]/ 52 / / Tendril Mri Lead - [id number] Implanted:07/04 at [facility] (Quantity not on file) [facility] [id number]/ 58 / / Icd [facility]. Tr[employer] Ellipse Dr - [id number] Implanted:07/04 at [facility] (Quantity not on file) [employer] 02/23/2019 [id number] Q / / Ellipse Icd-Dual - [id number] Implanted:Qty: 1 on 07/04/2017 by Yonathan Kellogg MD at [facility] [employer] 02/23/2019 [id number] Q / [id number] / Optisure Df4 Lead-Icd - [id number] Implanted:07/04 at [facility] (Quantity not on file) [facility] 01/24/2018 [id number] / / Procedures Procedure Name Priority Date/Time Associated Diagnosis Comments POCT GLUCOSE - DOCKED DEVICE Routine 10/21/2024 1:46 PM CDT XA GENERIC AUTO MECHANIC APPRENTICE STAT 10/21/2024 1 :41 PM CDT PVD (peripheral vascular disease) Abnormal radial pulse Absent radial pulse COMPREHENSIVE METABOLIC PANEL Routine 10/21/2024 10:43 AM CDT CBC, AUTO, NO DIFF Routine 10/21/2024 10 :43 AM CDT THYROXINE, FREE (FT4) Routine 08/15/2024 2:41 PM CDT On amiodarone therapy THYROID STIM HORMONE TSH Routine 08/15/2024 2:41 PM CDT On amiodarone therapy HEPATIC FUNCTION PANEL Routine 2:41 PM CDT On amiodarone therapy COLONOSCOPY Routine 12/18/2020 7:23 AM CDT CTA AORTO ILIOFEM RUNOFF Routine 10/20/2020 11:35 AM CDT Claudication LIPID PANEL (OUTSIDE LAB) Routine 05/06/2019 from Last 3 Months or Most Recently Relevant to Health Maintenance Results * POCT glucose (10/21/2024 1:46 PM CDT) GLUCOSE POC 93 70 - 109 10/21/2024 1:49 PM CDT [facility] 10/21/2024 1:46 PM CDT us Yonathan Kellogg MD POCT ORDERABLES - DEVICE Final Result Performing Organization Address City/State/[facility] Co de Phone Number [facility] [address] [place] [address], [phone] * XA GENERIC AUTO MECHANIC APPRENTICE (10/21/2024 1:41 PM CDT) Anatomical Region Laterality Modality [facility] 10/21/2024 12:0 0 PM CDT us Yonathan Kellogg MD AUTO MECHANIC APPRENTICE Final Result * (ABNORMAL) COMPREHENSIVE METABOLIC PANEL (10/21/2024 10:43 AM CDT) SODIUM S/P/B 138 136 - 145 MMOL/L 10/21/2024 11:29 AM CDT [facility] POTASSIUM S/P/B 3.9 3.5 - 5.1 MMOL/L 10/21/2024 11:29 AM T [facility] CHLORIDE S/P/B 109 97 - 115 MMOL/L 10/21/2024 11:29 AM T [facility] CO2 26.1 21.0 - 32.0 MMOL/L 10/21/2024 11:29 AM T [facility] GLUCOSE 96 74 - 106 MG/DL 10/21/2024 11:29 AM CDT [facility] BUN 18 7 - 18 MG/DL 10/21/2024 11:29 AM T [facility] CREATININE S/P/B 1.24 0.70 - 1.30 MG/DL 10/21/2024 11:29 AM T [facility] CALCIUM S/P/B 9.0 8.5 - 10.1 MG/DL 10/21/2024 11:29 AM T [facility] BILIRUBIN TOTAL S/P/B 0.2 0.2 - 1.0 MG/DL 10/21/2024 11:29 AM T [facility] ALKALINE PHOSPHATASE S/P/B 45 45 - 115 U/L 10/21/2024 11:29 AM T [facility] AST 14(L) 15 - 37 U/L 10/21/2024 11:29 AM T [facility] ALT 21 16 - 61 U/L 10/21/2024 11:29 AM T [facility] TOTAL PROTEIN S/P/B 6.9 6.4 - 8.2 G/DL 10/21/2024 11:29 AM CDT [facility] ALBUMIN S/P/B 3.2(L) 3.4 - 5.0 G/DL 10/21/2024 11:29 AM T [facility] ANION GAP 2.9 2.0 - 10.0 MMOL/L 10/21/2024 11:29 AM T [facility] OSMOLALITY (CALC) 288 MOSM/KG 025 11:29 AM CDT [facility] Comment:REFERENCE RANGE NOT ESTABLISHED GFR ESTIMATE 63(L) >90 ML/MIN/1. 73 M2 10/21/2024 11:29 AM CDT [facility] GFR NOTES GFR REFERENCE S: 10/21/2024 11:29 AM CDT [facility] Comment: THE ESTIMATED GFR IS CALCULATED USING THE 2020 CKD-EPI EQUATION. THE FOLLOWING CATEGORIES FOR GRADING RENAL FUNCTION ARE RECOMMENDED BY THE INTERNATIONAL SOCIETY OF NEPHROLOGY (KDIGO 2012 CLINICAL PRACTICE GUIDELINE). G1,NORMAL OR HIGH: >89 ml/min/1.73 m2 G2,MILDLY DECREASED: 60-89 ml/min/1.73 m2 G3A,MILDLY TO MODERATELY DECREASED: 45-59 ml/min/1.73 m2 G3B,MODERATELY TO SEVERELY DECREASED: 30-44 ml/min/1.73 m2 G4,SEVERELY DECREASED: 15-29 ml/min/1.73 m2 G5,KIDNEY FAILURE: <15 ml/min/1.73 m2 10/21/2024 10:4 3 AM CDT us Yonathan Kellogg MD LABORATORY Final Result [facility] [address] [place] [address], [phone] * (ABNORMAL) CBC, AUTO, NO DIFF (10/21/2024 10:43 AM CDT) WBC 7.45 4.00 - 10.80 x10'3/uL 10/21/2024 11:00 AM CDT [facility] RBC 4.04(L) 4.50 - 6.10 x10'6/uL 10/21/2024 11:00 AM CDT [facility] HGB 12.3(L) 13.0 - 18.0 G/DL 10/21/2024 11:00 AM CDT [facility] HCT 36.3(L) 37.0 - 52.0 % 10/21/2024 11:00 AM CDT [facility] MCV 89.9 78.0 - 100.0 FL 10/21/2024 11:00 AM CDT [facility] MCH 30.4 27.0 - 31.0 PG 10/21/2024 11:00 AM CDT [facility] MCHC 33.9 33.0 - 36.0 G/DL 10/21/2024 11:00 AM CDT [facility] RDW 14.8(H) 11.5 - 14.5 % 10/21/2024 11:00 AM CDT [facility] PLT 290 150 - 350 x10'3/uL 10/21/2024 11:00 AM CDT [facility] MPV 9.3 7.4 - 10.4 FL 10/21/2024 11:00 AM CDT [facility] 10/21/2024 10:4 3 AM CDT us Yonathan Kellogg MD LABORATORY Final Result [facility] [address] [place] [address], [phone] * (ABNORMAL) HEPATIC FUNCTION PANEL (08/15/2024 2:41 PM CDT) BILIRUBIN TOTAL S/P/B 0.4 0.2 - 1.0 MG/DL 08/15/2024 3:29 PM CDT [facility] BILIRUBIN DIRECT S/P/B 0.2 0.0 - 0.2 MG/DL 08/15/2024 3:29 PM CDT [facility] ALKALINE PHOSPHATASE S/P/B 43(L) 45 - 115 U/L 08/15/2024 3:29 PM CDT [facility] AST 10(L) 15 - 37 U/L 08/15/2024 3:29 PM CDT [facility] ALT 20 16 - 61 U/L 08/15/2024 3:29 PM CDT [facility] TOTAL PROTEIN S/P/B 7.1 6.4 - 8.2 G/DL 08/15/2024 3:29 PM CDT [facility] ALBUMIN S/P/B 3.3(L) 3.4 - 5.0 G/DL 08/15/2024 3:29 PM CDT [facility] 08/15/2024 2:41 PM CDT us Yonathan Kellogg MD LABORATORY Final Result Performing Organization Address [facility] de Phone Number [facility] [address] [place] [id number], [phone] * (ABNORMAL) T4; FREE (08/15/2024 2:41 PM CDT) FREE T4 1.51(H) 0.76 - 1.46 NG/DL 08/16/2024 1:40 PM CDT [facility] 08/15/2024 2:41 PM CDT us Yonathan Kellogg MD LABORATORY Final Result Performing Organization Address [facility] de Phone Number [facility] [address] [place] [address], [phone] * TSH (08/15/2024 2:41 PM CDT) TSH 0.499 0.358 - 3.740 uIU/ML 08/15/2024 3:29 PM CDT [facility] Comment: ASSAY PERFORMED BY CHEMILUMINESCENCE METHODOLOGY USING [place] [facility]. PATIENT RESULTS DETERMINED BY ASSAYS USING DIFFERENT MANUFACTURERS FOR METHODS MAY NOT BE COMPARABLE. 08/15/2024 2:41 PM CDT us Yonathan Kellogg MD LABORATORY Final Result [facility] [address] [place] [address], [phone] * Colonoscopy (12/18/2020 7:23 AM CDT) Anthony Dozier MD GI PROCEDURE ORDERABLES Final Re sult * CTA AORTO ILIOFEM RUNOFF (10/20/2020 11:35 AM CDT) Anatomical Region Laterality Modality Abdomen, Pelvis, Extremity Compu elidia Tomography 10/21/2020 3:54 PM CDT Impressions 10/21/2020 4:09 PM CDT IMPRESSION: 1) Extensive atherosclerotic disease involving the abdominal aorta and its branches with small distal abdominal aortic AAA measuring 3 cm in maximum diameter. 2. Very extensive pelvic inflow atherosclerotic occlusive disease with moderate to severe stenosis left common iliac artery. Severe stenosis right common iliac artery with short segment occlusion at the junction of the right common iliac and right external iliac arteries as described. 3. Extensive trifurcation disease bilaterally right worse than left. Referred By: AGUSTIN MANZO Interpreted By: Devan Anaya MD, 10/21/2020 3:54 PM Narrative 10/21/2020 4:09 PM CDT Examination: CTA AORTO ILIOFEM RUNOFF Exam time: 10/20/2020 11:35 AM Clinical history: Lower extremity claudication Comparison: None Technique: Axial images obtained from xiphoid process to the feet with intravenous injection of 100 cc Isovue 370 contrast using low-dose CTA technique. MIP and 3- D volume rendered reconstructions. Findings: Nonvascular findings: Visualized portions of the lung bases demonstrate no acute abnormality. The liver is normal in size. No focal intrahepatic lesion. No evidence of cholelithiasis or gallbladder wall thickening. The spleen is unremarkable. Small accessory spleen in the splenic hilum. The pancreas and the adrenal glands are unremarkable. Bilateral renal cysts are again noted. No evidence of hydronephrosis. No evidence of solid renal mass lesion. No acute inflammatory change, abscess or ascites. No evidence of mechanical bowel obstruction or perforation. There is evidence of prostatomegaly. Chronic degenerative disc disease lower lumbar spine.The lower extremities demonstrate no significant focal acute abnormality. CTA abdomen/pelvis: There is extensive atherosclerotic as patient noted involving the abdominal aorta and its branches with no evidence of AAA. Mild stenosis noted at the origins of the SMA and celiac trunk there are duplicated left renal arteries with mild stenosis proximal left main renal artery. Mild stenosis proximal right main renal artery. The SYBIL is patent. Mild focal dilatation of the distal abdominal aorta measures up to 3 cm in maximum diameter consistent with small aneurysm. There is very extensive atherosclerotic plaque involving the iliac arteries bilaterally. Moderate to severe is noted involving the left common iliac artery. There is severe stenosis at the origin of the right common iliac and there is short segment occlusion at the junction of the right common and external iliac arteries with collateral reconstitution of the distal right external iliac. Mild atherosclerotic narrowing noted involving the left common femoral artery. There is moderate to severe stenosis involving the right common femoral artery. Mild diffuse calcified plaque is seen involving the SFA and popliteal arteries bilaterally without significant focal stenosis or segmental occlusion. The profunda is grossly unremarkable bilaterally. There is significant trifurcation atherosclerotic occlusive disease involving both lower extremities. On the left side the peroneal artery appears to be occluded proximally with the anterior posterior tibial arteries occluded at the mid calf level. There is collateral reconstitution of the distal left anterior tibial artery with flow demonstrated in the left dorsalis pedis. On the right side the anterior tibial and peroneal arteries appear to be occluded at the mid calf level with no distal reconstitution of the right anterior tibial artery. No definite evidence of flow is seen in the right dorsalis pedis. The right posterior tibial artery is diffusely diseased but is patent to the foot. Procedure Note Devan Anaya MD - 10/21/2020 Examination: CTA AORTO ILIOFEM RUNOFF Exam time: 10/20/2020 11:35 AM Clinical history: Lower extremity claudication Comparison: None Technique: Axial images obtained from xiphoid process to the feet withintravenous injection of 100 cc Isovue 370 contrast using low-dose CTAtechnique. MIP and 3-D volume rendered reconstructions. Findings: Nonvascular findings: Visualized portions of the lung bases demonstrate noacute abnormality. The liver is normal in size. No focal intrahepaticlesion. No evidence of cholelithiasis or gallbladder wall thickening. Thespleen is unremarkable. Small accessory spleen in the splenic hilum. Thepancreas and the adrenal glands are unremarkable. Bilateral renal cystsare again noted. No evidence of hydronephrosis. No evidence of solid renalmass lesion. No acute inflammatory change, abscess or ascites. No evidenceof mechanical bowel obstruction or perforation. There is evidence ofprostatomegaly. Chronic degenerative disc disease lower lumbar spine.Thelower extremities demonstrate no significant focal acute abnormality. CTA abdomen/pelvis: There is extensive atherosclerotic as patient notedinvolving the abdominal aorta and its branches with no evidence of AAA.Mild stenosis noted at the origins of the SMA and celiac trunk there areduplicated left renal arteries with mild stenosis proximal left main renalartery. Mild stenosis proximal right main renal artery. The SYBIL is patent.Mild focal dilatation of the distal abdominal aorta measures up to 3 cm inmaximum diameter consistent with small aneurysm. There is very extensive atherosclerotic plaque involving the iliacarteries bilaterally. Moderate to severe is noted involving the leftcommon iliac artery. There is severe stenosis at the origin of the rightcommon iliac and there is short segment occlusion at the junction of theright common and external iliac arteries with collateral reconstitution ofthe distal right external iliac. Mild atherosclerotic narrowing notedinvolving the left common femoral artery. There is moderate to severestenosis involving the right common femoral artery. Mild diffuse calcified plaque is seen involving the SFA and poplitealarteries bilaterally without significant focal stenosis or segmentalocclusion. The profunda is grossly unremarkable bilaterally. There is significant trifurcation atherosclerotic occlusive diseaseinvolving both lower extremities. On the left side the peroneal arteryappears to be occluded proximally with the anterior posterior tibialarteries occluded at the mid calf level. There is collateralreconstitution of the distal left anterior tibial artery with flowdemonstrated in the left dorsalis pedis. On the right side the anterior tibial and peroneal arteries appear to beoccluded at the mid calf level with no distal reconstitution of the rightanterior tibial artery. No definite evidence of flow is seen in the rightdorsalis pedis. The right posterior tibial artery is diffusely diseasedbut is patent to the foot. IMPRESSION: 1) Extensive atherosclerotic disease involving the abdominal aorta and itsbranches with small distal abdominal aortic AAA measuring 3 cm in maximumdiameter. 2. 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 Severe stenosisright common iliac artery with short segment occlusion at the junction ofthe right common iliac and right external iliac arteries as described. 3. Extensive trifurcation disease bilaterally right worse than left. Referred By: AGUSTIN MANZO Interpreted By: Devan Anaya MD, 10/21/2020 3:54 PM us Agustin Manzo MD CT Final Result * LIPID PANEL (OUTSIDE LAB) (05/06/2019) CHOLESTEROL 174 <=199 TRIGLYCERIDES 253 0 - 150 HDL 44 40 - 60 LDL (CALCULATED) 112 <=99 05/06/2019 us Doc [facility] Abstract LAB-OUTSIDE/ABSTRACTED Final Result from Last 3 Months or Most Recently Relevant to Health Maintenance Insurance Advance Directives * Full Code (Latest Code Status on File) Date Activated Date Inactivated Comments 10/21/2024 2:57 PM 10/21/2024 6:44 PM * Full Code Date Activated Date Inactivated Comments 04/07/2021 12:31 PM 04/07/2021 5:14 PM * Full Code Date Activated Date Inactivated Comments 12/21/2020 6:45 PM 12/21/2020 8:45 PM * Full Code Date Activated Date Inactivated Comments 07/02/2017 4:17 AM 07/05/2017 4:06 PM Care Teams Family Advocate Relationship Specialty Start Date End Date Dre Boss MD [address] [place] [phone] PCP - General INTERNAL MEDICINE 08/19/20 Yonathan Kellogg MD [address] [place] [address] EP Knot Tier CLINICAL CARDIAC ELECTROPHYSIOLOGY 10/05/17 Kaitlin Fuentes MD [address] [place] [address] Consulting Physician INTERNAL MEDICINE 07/23/20 Eduardo Foster MD [address] [place] [phone] Consulting Physician Orthopaedic Surgery Sports Medicine 11/03/23
--- OUTSIDE RECORDS SUMMARY | 2024-11-05 15:53 | XMS_ITS | Encounter Summary ---
Author Name [facility] [place] Organization [facility] [place] Address [address] [place] [address] Care Team Providers Care Business Services Tech Name Role Phone DANNY CONTRERAS Primary Care Provider Unavailabl e Selected Encounter This section includes the information on record at [place] for the Encounter. Date/Time Encounter Type Encounter Description Reason Pro vider Source Jan 12, 2024 07:52 PM Outpatient Encounter ADMIN PAT ACTIVTIES (MASNONCT) IHE Encounter Template Text not used by [place] Plan of Treatment: Future Appointments (+ 6 months) and Future Tests (+/- 45 days) The Plan of Treatment section includes future care activities for the patient from all [place] treatmentfacilities. This section includes future appointments and future orders which are active, pending or scheduled. Future Appointments This section includes appointments that were scheduled to occur 6 months from the date of the Encounter, up to a maximum of 20 appointments. The data comes from all [place] treatment facilities. Appointment Date/Time Appointment Type Appointme nt Facility Name Jan 16, 2024 11:00 AM [facility] Jan 17, 2024 02:30 PM [facility] Jan 22, 2024 09:00 AM [facility] NONE [facility] Jan 23, 2024 09:30 AM [facility] NONE [facility] Jan 31, 2024 08:00 AM [facility]ORY [facility] NONE [facility] Feb 16, 2024 01:00 PM AMBULATORY - NONE [facility] Feb 19, 2024 02:15 AM [facility]ORY [facility] NONE [facility] Feb 29, 2024 09:50 AM AMBULATORY - NONE [facility] Mar 07, 2024 10:00 AM AMBULATORY - MEDICINE [facility] Apr 10, 2024 11:30 AM AMBULATORY - SURGERY [facility] Apr 10, 2024 11:35 AM AMBULATORY - NONE [facility] Jun 17, 2024 10:00 AM [facility]ORY [facility] NONE [facility] Jun 19, 2024 01:30 PM AMBULATORY - MEDICINE [facility] Jul 03, 2024 09:30 AM AMBULATORY - SURGERY [facility] Jul 03, 2024 09:35 AM AMBULATORY - NONE [facility] Jul 03, 2024 11:00 AM AMBULATORY - NONE [facility] Advance Directives: All historical and current Section Date Range: From patient's date of to the date document was created. This section includes ALL of a patient's completed or amended [place] Advance and Rescinded Directives. The entries below indicate that a directive exists for the patient, but an actual copy is not included with this document. The data comes from all [place] facilities. Date Advance Directives Provider Source August 13, 2013 ADVANCE DIRECTIVE MARITA SANDERS [facility] Oct 13, 1998 ADVANCE DIRECTIVE Jessica YOST [facility] Mar 14, 1994 ADVANCE DIRECTIVE YUMIKO HOLMAN [facility] Encounter Notes: All [...] the Facility: Dec Method of Contact: Phone [facility] Hospital Name: Hospital: [facility] Address: [address] [facility], City: [place] State: [place] Zip Code: [address] [facility] Facility Point of Contact: Name: Louann Hartmann Chief complaint: Thigh Abscess Primary Diagnosis: Disposition Unknown at time of intake note entry /loli/ JORDAN PAZ Signed: 01/12/2024 19:56 01/12/2024 ADDENDUM STATUS: COMPLETED Neuropsychology Medical Consultant received @9:26pm a call form [facility] nurse informed AOD that the patient have declined the transfer at this time. AOD informed MOD and Bed coordinator Connie Tam. /loli/ JORDAN PAZ Signed: 01/12/2024 21:30 JORDAN PAZ [facility]
--- OUTSIDE RECORDS SUMMARY | 2024-11-05 15:53 | XMS_ITS | Encounter Summary ---
Author Organization [facility] Address [facility] [place] [address] Care Team Providers Care Vertical Lathe Operator Name Role Phone Yonathan Kellogg MD Unavailable [phone] Kaitlin Fuentes MD Unavailable [phone] Dre Boss MD Primary Care Provider [phone] Eduardo Foster MD Unavailable Unavailable Reason for Visit * Reason Onset Date Comments Hives 10/30/2024 Encounter Details Date Type Department Care Team (Late st Contact Info) Description 10/30/2024 Telephone [facility] [address] [place] [address] Yonathan Kellogg MD [address] [place] [address] Hives Social History Tobacco Use Types Packs/Day Years Used Date Smoking Tobacco: Every Day Cigarettes 2 50 Passive Smoke Exposure: Current Smokeless Tobacco: Never Alcohol Use Standard Drinks/Week Comments Yes 1.7 [...] on file Sexual Orientation Not on file documented as of this encounter Progress Notes * Lianet Morgan RN - 11/05/2024 8:40 AM CDT Pt states that cream has taken care of the rash, its gone. Pt states that steroid has taken care ofmost of the swelling, but over the past 2 days there haven't been much change. Pt states that thereis still some swelling in his groin area, on the right side. Pt states he is out of medication. Pt states that area is tender. Discussed medications and methods to improve swelling. Explained to pt that steroid was suppressinginflammation, now that med is finished swelling is to be expected. Informed pt that MD is out of office and I am unable to send in more medication without MD orders. Discussed with pt options to go to PCP if swelling does not improve. Total time applications specialist 10 minutes. * Cindi Pulido LPN - 10/30/2024 12:47 PM CDT Called pt and informed him will order him meds for his rash medrol pack and hydrocortisone cream told him I will send to [facility] in [place]. He asked that I call [facility] to make sure [facility] to [facility] to them. Told him I would called [facility] and spoke with Campground Manager and she said it would be ok to send it to [facility]. Called pt back and informed him I sent scripts to [facility] and [facility] said it would be [facility]. Pt also asked if I would write him a letter with instruction and what meds so he had it if he needed it for the [facility]. Told him I will do this and mail it to him. Pt voiced understanding and has no questions. * Cindi Pulido LPN - 10/30/2024 10:02 AM CDT Called pt left vm for them to call office Re; give call to Pat when he returns call * Cindi Pulido LPN - 10/30/2024 9:54 AM CDT Pt called office and said the bruising is getting better but the groin area is some what red and hehas a rash on his testicles and penis going up to his abd he thinks it may be from what they prepped him will for the procedure. He also would like us to send a copy of the referral to the [place] pac team for Dr. Mai. Informed him will send the copy of 's d/c summary to them it has the referral in it. I will talk with about his rash when he comes in office he is applications specialist today and becky be inand out of office. Pt voiced understanding and has no questions. documented in this encounter Plan of Treatment Upcoming Encounters Date Type Department Care Team (Late st Contact Info) Description 11/28/2024 9:30 AM CDT Appointment [facility] Reverse Unit Operator Fisher[place] [address] [place] [phone] Ildefonso Mai MD [address] [place] [address] 12/02/2024 11:00 AM CDT Allied Health/Nurse [facility] [address] [address] Yonathan Kellogg MD [address] [place] [phone] 12/02/2024 11:15 AM CDT Office Visit [facility] [address] [address] Yonathan Kellogg MD [address] [place] [phone] 01/01/2025 1:15 AM CDT Allied Health/Nurse Visit [facility] [address] [place] [address] Yonathan Kellogg MD [address] [place] [address] documented as of this encounter Visit Diagnoses Not on filedocumented in this encounter Care Teams Vertical Lathe Operator Relationship Specialty Start Date End Date Dre Boss MD [address] [place] [address] PCP - General INTERNAL MEDICINE 08/19/20 Yonathan Kellogg MD [address] [place] [address] EP Rn Testing CLINICAL CARDIAC ELECTROPHYSIOLOGY 10/05/17 Kaitlin Fuentes MD [address] [place] [address] Consulting Physician INTERNAL MEDICINE 07/23/20 Eduardo Foster MD [address] [place] [address] Consulting Physician Orthopaedic Surgery Sports Medicine 11/03/23 documented as of this encounter
--- OUTSIDE RECORDS SUMMARY | 2024-11-05 15:53 | XMS_ITS | Encounter Summary ---
Author Name [facility] [place] Organization [facility] [place] Address [address] [place] [address] Care Team Providers Care Religious Leader Name Role Phone DRE CONTRERAS Primary Care Provider Unavailabl e Selected Encounter This section includes the information on record at [place] for the Encounter. Date/Time Encounter Type Encounter Description Reason Pro vider Source Sep 18, 2024 10:52 AM Outpatient Encounter COMMUNITY CARE CONSULT IHE Encounter Template Text not used by [place] Plan of Treatment: Future Appointments (+ 6 months) and Future Tests (+/- 45 days) The Plan of Treatment section includes future care activities for the patient from all [place] treatmentfacilities. This section includes future appointments and future orders which are active, pending or scheduled. Future Appointments This section includes appointments that were scheduled to occur 6 months from the date of the Encounter, up to a maximum of 20 appointments. The data comes from all [place] treatment facilities. Appointment Date/Time Appointment Type Appointme nt Facility Name Oct 02, 2024 11:00 AM AMBULATORY - NONE [facility] Oct 11, 2024 08:30 AM AMBULATORY - MEDICINE [facility] Oct 21, 2024 10:00 AM AMBULATORY - NONE [facility] Oct 23, 2024 10:00 AM AMBULATORY - SURGERY [facility] Oct 23, 2024 10:05 AM AMBULATORY - NONE [facility] Nov 06, 2024 08:30 AM AMBULATORY - NONE [facility] Nov 28, 2024 09:30 AM AMBULATORY - NONE [facility] Jan 21, 2025 10:00 AM AMBULATORY - NONE [facility] Feb 05, 2025 11:30 AM AMBULATORY - SURGERY [facility] Feb 05, 2025 11:35 AM AMBULATORY - NONE [facility] Feb 27, 2025 09:30 AM AMBULATORY - NONE [facility] Mar 06, 2025 09:30 AM AMBULATORY - MEDICINE [facility] Active, Pending, and Scheduled Orders This section includes a listing of several types of active, pending, and scheduled orders, including clinic medications orders, diagnostic test orders, procedure orders and consult orders; where the start date of the order is 45 days before the date of the Encounter or 45 days after the date of theEncounter. The data comes from all [place] treatment facilities. Test Date/Time Test Type Test Details Facility Name August 23, 2024 09:56 AM Consult Order COMMUNITY CARE-DERMATOLOGY [facility] Oct 03, 2024 01:35 PM Consult Order COMMUNITY CARE-DS ROUTINE OPTOMETRY [facility] Oct 28, 2024 01:11 PM Consult Order PROSTHETIC S REQUEST - OUTPT [facility] Oct 30, 2024 12:22 PM Consult Order COMMUNITY [facility]-V[facility] Lab Results: +/- 30 days of [...] Type Comment Aug 27, 2024 09:21 AM [facility] FOLATE (CONTRERAS) SERUM Specimen Type: SERUM Comment: Methotrexate and Leucovorin (folinic acid) interfere with the measurement of folate. Patients receiving these drugs should not be tested for folate by this method. Ordering Provider: DRE CONTRERAS Report Released Date/Time: May 03, 2024 12:41 PM Reporting Lab: [facility] [address] [facility] [address] Performing Lab: [facility] [address] [facility] [address] FOLATE (CONTRERAS) >48.00 ng/mL 5.39-48.00 Aug 27, 2024 09:21 AM [facility] FERRITIN (CONTRERAS) SERUM Specimen Type: SERUM Comment: Methotrexate and Leucovorin (folinic acid) interfere with the measurement of folate. Patients receiving these drugs should not be tested for folate by this method. Ordering Provider: DRE CONTRERAS Report Released Date/Time: May 24, 2024 09:08 AM Reporting Lab: [facility] [address] [facility] [address] Performing Lab: [facility] [address] [facility] [address] FERRITIN (CONTRERAS) 27.9 ng/mL 26.0-388.0 Aug 27, 2024 09:21 AM [facility] VITAMIN B12 (CONTRERAS) SERUM Speci men Type: SERUM Comment: Methotrexate and Leucovorin (folinic acid) interfere with the measurement of folate. Patients receiving these drugs should not be tested for folate by this method. Ordering Provider: DRE CONTRERAS Report Released Date/Time: Jun 28, 2024 07:56 AM Reporting Lab: [facility] [address] [facility] [address] Performing Lab: [facility] [address] [facility] [address] VITAMIN B12 (CONTRERAS) 728 pg/mL 193-986 Aug 27, 2024 09:21 AM [facility] A1C % BLOOD Specimen Type: BLOOD [...] Mar 07, 2024 10:28 AM Reporting Lab: [place] [address] [facility] [address] Performing Lab: [address] [address] A1C % 6.2 H 0.0-5.6 Aug 27, 2024 09:21 AM [facility] IRON PANEL SERUM Specimen T ype: SERUM Comment: TIBC may be inaccurate if patient is on iron dextran in the last 14 days. Ordering Provider: DRE CONTRERAS Report Released Date/Time: Mar 07, 2024 10:32 AM Reporting Lab: [address] [address] Performing Lab: [address] [address] IRON 69 ug/dL 65-175 TOT IRON BINDING CAPAC 395 ug/dL 250-450 % IRON SATURATION 17 10-50 Aug 27, 2024 09:21 AM [facility] COMPREHENSIVE PNL PLASMA Specime n Type: PLASMA Comment: eGFR was calculated using the CKD-EPI Creatinine (2020) equation. Ordering Provider: DRE CONTRERAS Report Released Date/Time: Mar 07, 2024 10:28 AM Reporting Lab: [address] [address] Performing Lab: [address] [address] ANION GAP 6 mmol/L 5-15 EGFR 54 [...] H 0.73-1.18 Aug 27, 2024 09:21 AM [facility] CBC W/DIFF BLOOD Specimen T ype: BLOOD No comment entered. Ordering Provider: DRE CONTRERAS Report Released Date/Time: Mar 07, 2024 10:28 AM Reporting Lab: [address] [address] Performing Lab: [facility] [address] [facility] [address] WBC 7.6 10*3/uL 4.0-11.0 RBC 4.27 10*6/uL [...] ALL of a patient's completed or amended [place] Advance and Rescinded Directives. The entries below indicate that a directive exists for the patient, but an actual copy is not included with this document. The data comes from all [place] facilities. Date Advance Directives Provider Source August 13, 2013 ADVANCE DIRECTIVE MARITA SANDERS [facility] Oct 13, 1998 ADVANCE DIRECTIVE Jessica YOST [facility] Mar 14, 1994 ADVANCE DIRECTIVE YUMIKO HOLMAN [facility] Encounter Notes: All associated encounter notes This section contains the clinical notes associated to the Encounter. Date/Time Encounter Note(s) Provider Source Sep 18, 2024 11:07 AM ADDENDUM: LOCAL TITLE: Addendum STANDARD TITLE: ADDENDUM DATE OF NOTE: SEP 18, 2024@11:07:19 ENTRY DATE: SEP 18, 2024@11:07:20 AUTHOR: DRE CONTRERAS EXP COSIGNER: URGENCY: STATUS: COMPLETED from last chiropractor consult that was denied. [place] will need notes from chiropractor showing justification for meaningful positive outcomes. Alerting provider for review. Please re-submit if still needed. Please let vet know. Need records from his chiropractor. /loli/ Dre Contreras M.D. STAFF PACT PHYSICIAN Signed: 09/18/2024 11:07 Receipt Acknowledged By: 09/18/2024 11:13 /loli/ CHRISTELLE ACE RN --- Original Document --- 09/18/24 COMMUNITY CARE-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 REQUEST: callled to request a new consult be placed at this time. Service Type:It Service Technician Chief Complaint: Chrnoic Pain for neck and back pain [facility] Address:[address] [place] [address] PH:[phone] Automobile Accessories Installer confirmed all above information that the had at time of call. /loli/ JOSE ANTONIO MERCADO [facility] Signed: 09/18/2024 10:55 Receipt Acknowledged By: 09/18/2024 11:12 /loli/ CHRISTELLE ACE RN 09/18/2024 11:07 /loli/ Dre Contreras M.D. STAFF PACT PHYSICIAN 09/18/2024 ADDENDUM STATUS: UNSIGNED You may not VIEW this UNSIGNED Addendum. DRE CONTRERAS [facility] Sep 18, 2024 10:52 AM NONVA NOTE: LOCAL TITLE: COMMUNITY CARE-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 REQUEST STANDARD TITLE: NONVA NOTE DATE OF NOTE: SEP 18, 2024@10:52 ENTRY DATE: SEP 18, 2024@10:52:42 AUTHOR: JOSE ANTONIO MERCADO COSIGNER: URGENCY: STATUS: COMPLETED COMMUNITY CARE-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 REQUEST Has ADDENDA [place] callled to request a new consult be placed at this time. Service Type:It Service Technician Chief Complaint: Chrnoic Pain for neck and back pain Facility:[facility] Address:[address] [place] [address] PH:[phone] Automobile Accessories Installer confirmed all above information that the had at time of call. /loli/ JOSE ANTONIO MERCADO [facility] Signed: 09/18/2024 10:55 Receipt Acknowledged By: 09/18/2024 11:12 /zulay ACE RN 09/18/2024 11:07 /loli/ Dre Contreras M.D. STAFF PACT PHYSICIAN 09/18/2024 ADDENDUM STATUS: COMPLETED from last chiropractor consult that was denied. [place] will need notes from chiropractor showing justification for meaningful positive outcomes. Alerting provider for review. Please re-submit if still needed. Please let vet know. Need records from his chiropractor. /loli/ Dre Contreras M.D. STAFF PACT PHYSICIAN Signed: 09/18/2024 11:07 Receipt Acknowledged By: 09/18/2024 11:13 /zulay ACE RN 09/18/2024 ADDENDUM STATUS: COMPLETED [place] already aware waiting for records from [facility] chiropractor to re enter consult. See phone note 09/16/24 /zulay ACE RN Signed: 09/18/2024 11:14 JOSE ANTONIO MERCADO
--- OUTSIDE RECORDS SUMMARY | 2024-11-05 15:53 | XMS_ITS | Encounter Summary ---
Author Name [facility] [place] Organization [facility] [place] [facility] [place] Address [address] [place] [address] Care Team Providers Care Gas Leak Inspector Name Role Phone DRE CONTRERAS Primary Care Provider Unavailabl e Selected Encounter This section includes the information on record at [place] for the Encounter. Date/Time Encounter Type Encounter Description Reason Provider Source Jun 19, 2024 01:30 PM OFFICE O/P EST MOD 30 MIN PRIMARY CARE/MEDICINE ICD-10-CM I25.9 Chronic ischemic heart disease, unspecified DRE CONTRERAS Manjinder Encounter Template Text not used by [place] Assessments - Encounter Diagnoses This section includes the primary and secondary diagnoses documented for the Encounter. Date/Time Primary/Secondary Diagnosis Diagnosis Name Provider Source Jun 19, 2024 01:54 PM PRIMARY Chronic ischemic heart disease, unspecified DRE CONTRERAS [facility] Jun 19, 2024 01:54 PM SECONDARY Allergic rhinitis, unspecified [facility] Jun 19, 2024 01:54 PM SECONDARY Autonomic neuropathy in diseases classified elsewhere [facility] Jun 19, 2024 01:54 PM SECONDARY Ischemic cardiomyopathy [facility] Jun 19, 2024 01:54 PM SECONDARY Pulsatile tinnitus, bilateral [facility] Jun 19, 2024 01:54 PM SECONDARY Vertebrogenic low back pain BENDRE BRITANY [facility] Plan of Treatment: Future Appointments (+ 6 months) and Future Tests (+/- 45 days) The Plan of Treatment section includes future care activities for the patient from all [place] [facility] This section includes future appointments and future orders which are active, pending or scheduled. Future Appointments This section includes appointments that were scheduled to occur 6 months from the date of the Encounter, up to a maximum of 20 appointments. The data comes from all [place] treatment facilities. Appointment Date/Time Appointment Type Appointme nt Facility Name Jul 03, 2024 09:30 AM AMBULATORY - SURGERY [facility] Jul 03, 2024 09:35 AM AMBULATORY - NONE [facility] Jul 03, 2024 11:00 AM AMBULATORY - NONE [facility] Jul 16, 2024 10:15 AM AMBULATORY - NONE [facility] August 14, 2024 10:30 AM AMBULATORY - NONE [facility] August 22, 2024 08:30 AM AMBULATORY - NONE [facility] Aug 27, 2024 09:10 AM AMBULATORY - NONE [facility] Aug 27, 2024 01:00 PM AMBULATORY - REHAB MEDICIN E [facility] Sep 05, 2024 09:30 AM AMBULATORY - MEDICINE [facility] Sep 09, 2024 10:30 AM [facility] Sep 10, 2024 09:45 AM AMBULATORY - NONE [facility] Oct 02, 2024 11:00 AM AMBULATORY - NONE [facility] Oct 11, 2024 08:30 AM AMBULATORY - MEDICINE [facility] Oct 21, 2024 10:00 AM AMBULATORY - NONE [facility] Oct 23, 2024 10:00 AM [facility] Oct 23, 2024 10:05 AM AMBULATORY - NONE [facility] Nov 06, 2024 08:30 AM AMBULATORY - NONE [facility] Nov 28, 2024 09:30 AM [facility] Vital Signs: All taken on the encounter date This section contains inpatient and outpatient Vital Signs collected on the date of the Encounter. Date/Time Temperature Pulse Blood Pressure Respiratory Rate SP02 Pain Height Weight Body Mass Index Source Jun 19, 2024 01:13 PM 130/68 [facility] Jun 19, 2024 01:13 PM 98.6 62 80/53 18 94 246.4 38 [facility] Social History: Smoking Status (Most current) and Tobacco Use (All prior to encounter date) This section includes the most current, and the historical, smoking and tobacco- related health factors from the [place] facility where the Encounter took place. Current Smoking Status This section includes the most current smoking, or tobacco-related health factor, from the [place] facility where the Encounter took place. Date/Time Current Smoking Status Comment Facil it Sep 08, 2023 10:30 AM [place] [address] [facility] Tobacco Use History This section includes a history of the smoking, or tobacco-related health factors, that were collected on or before the date of the Encounter. The data comes from the [place] facility where the Encounter took place. 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 May 07, 2021 10:00 AM VA-TOBACCO USER EVERY DAY [facility] May 07, 2020 01:00 PM VA-TOBACCO USE 30 YEARS OR MORE [facility] May 07, 2020 01:00 PM VA-TOBACCO USE ADVICE [facility] May 07, 2020 01:00 PM VA-TOBACCO USE PLATE GRAINER APPRENTICE NO [facility] May 07, 2020 01:00 PM VA-TOBACCO USE MED NO [facility] May 07, 2020 01:00 PM VA-TOBACCO [place] [address] [facility] May 07, 2020 01:00 PM VA-TOBACCO USER EVERY DAY [facility] Feb 13, 2019 11:11 AM VA-TOBACCO USE 30 YEARS OR MORE [facility] Feb 13, 2019 11:11 AM VA-TOBACCO USE ADVICE [facility] Feb 13, 2019 11:11 AM VA-TOBACCO USE PLATE GRAINER APPRENTICE NO [facility] Feb 13, 2019 11:11 AM VA-TOBACCO USE MED NO [facility] Feb 13, 2019 11:11 AM VA-TOBACCO [place] [address] [facility] Feb 13, 2019 11:11 AM VA-TOBACCO USER EVERY DAY [facility] Sep 25, 2017 04:04 PM VA-TOBACCO USE 30 YEARS OR MORE [facility] Sep 25, 2017 04:04 PM VA-TOBACCO USE ADVICE [facility] Sep 25, 2017 04:04 PM VA-TOBACCO USE PLATE GRAINER APPRENTICE NO [facility] Sep 25, 2017 04:04 PM VA-TOBACCO USE MED NO [facility] Sep 25, 2017 04:04 PM VA-TOBACCO [place] [address] [facility] Sep 25, 2017 04:04 PM VA-TOBACCO USER EVERY DAY [facility] Sep 20, 2017 12:35 PM HF.TOBACCO COUNSELING REFUSED [facility] Jul 11, 2017 01:33 PM HF.TOBACCO COUNSELING REFUSED [facility] Jul 11, 2017 01:33 PM TOBACCO CESSATION MEDS REFUSED [facility] Jul 11, 2017 01:33 PM TOBACCO CESSATION REFERRAL REFUSED [facility] Jul 11, 2017 01:33 PM TOBACCO OFFERRED STOP SMOKING CLINIC [facility] May 05, 2017 08:20 AM HF.TOBACCO COUNSELING REFUSED [facility] Feb 01, 2017 01:03 PM HF.TOBACCO COUNSELING REFUSED [facility] Aug 29, 2016 08:43 AM HF.TOBACCO COUNSELING REFUSED 2 pk/day declined ( does not wnat to quit) [facility] Aug 29, 2016 08:43 AM TOBACCO CESSATION MEDS REFUSED [facility] Aug 29, 2016 08:43 AM TOBACCO CESSATION REFERRAL REFUSED [facility] Aug 29, 2016 08:43 AM TOBACCO OFFERRED STOP SMOKING CLINIC [facility] May 23, 2016 09:59 AM HF.TOBACCO COUNSELING REFUSED [facility] Feb 29, 2016 09:30 AM HF.TOBACCO COUNSELING REFUSED [facility] Aug 26, 2015 06:35 AM HF.TOBACCO COUNSELING REFUSED [facility] Aug 26, 2015 06:35 AM TOBACCO CESSATION MEDS REFUSED [facility] Aug 26, 2015 06:35 AM TOBACCO CESSATION REFERRAL REFUSED [facility] Aug 26, 2015 06:35 AM TOBACCO OFFERRED PT MEDS (PROVIDER) [facility] Aug 26, 2015 06:35 AM TOBACCO OFFERRED STOP SMOKING [facility] Advance Directives: All historical and current Section Date Range: From patient's date of to the date document was created. This section includes ALL of a patient's completed or amended [place] Advance and Rescinded Directives. The entries below indicate that a directive exists for the patient, but an actual copy is not included with this document. The data comes from all [place] facilities. Date Advance Directives Provider Source August 13, 2013 ADVANCE DIRECTIVE MARITA SANDERS [facility] Oct 13, 1998 ADVANCE DIRECTIVE Jessica YOST [facility] Mar 14, 1994 ADVANCE DIRECTIVE YUMIKO HOLMAN [facility] Encounter Notes: All associated encounter notes This section contains the clinical notes associated to the Encounter. Date/Time Encounter Note(s) Provider Source Jun 19, 2024 01:26 PM PRIMARY CARE NOTE: LOCAL TITLE: [facility] STANDARD TITLE: PRIMARY CARE NOTE DATE [...] full or plugged. POs sneeze, eyes water/itch. Blodgett did see eye doctor last Monday - [...] Currently stable with meds. Follow up with respiratory therapist assistant. 2. chronio obstrutuctive pulmonarny disease - limits [...] Allergies/ADRs FACILITY ALLERGY/ADR -------- [facility] ATORVASTATIN [facility] CILOSTAZOL [facility] FERROUS SULFATE [facility] ROSUVASTATIN [facility] SIMVASTATIN [facility] SPIRONOLACTONE [facility] FERROUS SULFATE [facility] ROSUVASTATIN [facility] SIMVASTATIN MRR1 - Med Reconciliation INCLUDED IN THIS LIST: Alphabetical list of active outpatient prescriptions dispensed from this [place] (local) and dispensed from another [place] or [facility] facility (remote) as well as inpatient orders (local pending and active), local clinic medications, locally documented non-VA medications, and local prescriptions that have or been discontinued in the past 90 days. Non-VA Meds Last Documented On: May 15, 2019 NOTE The display of VA prescriptions dispensed from another [place] or [facility] facility (remote) is limited to active outpatient prescription entries matched to National Drug File at the originating site and may not include some items such as investigational drugs, compounds, etc. NOT INCLUDED IN THIS LIST: Medications self-entered by the patient into personal health records (i.e. [employer]) are NOT included in this list. Non-VA medications documented outside this [place], remote inpatient orders (regardless of status) and [...] MORE THAN 6 TABLETS PER DAY. Rx# [id number] Last Released: 04/01/24 Qty/Days Supply: Rx Expiration Date: 01/17/25 Refills Remainin Indication: FOR PAIN OUTPT ALBUTEROL 90MCG (CFC-F) 200D ORAL INHL (Status = Active) INHALE 2 PUFFS BY MOUTH FOUR TIMES A DAY NEEDED FOR BREATHING Rx# [id number] Last Released: 09/11/23 Qty/Days Supply: 04/25 Rx Expiration Date: 09/08/24 Refills Remainin OUTPT ALBUTEROL SULF 0.083% INHL 3ML (Status = Active) INHALE 3 ML VIA NEBULIZER BY ORAL NEBULIZATION FOUR TIMES A DAY NEEDED Rx# [id number] Last Released: 07/25/23 Qty/Days Supply: /30 Rx Expiration Date: 07/21/24 Refills Remainin Indication: FOR SHORTNESS OF BREATH OUTPT ALUMINUM HYDROXIDE GEL 320MG/5ML SUSP (Status = Discontinued) TAKE 15 ML BY MOUTH FOUR TIMES A DAY NEEDED FOR STOMACH ACID Rx# [id number] Last Released: 05/24/24 Qty/Days Supply: Rx Expiration Date: 07/21/24 Refills Remainin OUTPT ALUMINUM HYDROXIDE GEL 320MG/5ML SUSP (Status = Active) TAKE 15 ML BY MOUTH FOUR TIMES A DAY NEEDED FOR STOMACH ACID Rx# [id number] Last Released: 06/12/24 Qty/Days Supply: 05/11 Rx Expiration Date: 06/11/25 Refills Remainin OUTPT AMIODARONE HCL (PACERONE) 200MG TAB (Status = Active) TAKE ONE TABLET BY MOUTH DAILY FOR HEART Rx# [id number] Last Released: 04/26/24 Qty/Days Supply: Rx Expiration Date: 09/08/24 Refills Remainin OUTPT ASPIRIN 81MG CHEW TAB (Status = Active) CHEW ONE TABLET BY MOUTH EVERY DAY FOR BLOOD THINNER Rx# [id number] Last Released: 05/09/24 Qty/Days Supply: Rx Expiration Date: 09/08/24 Refills Remainin OUTPT CETIRIZINE HCL 10MG TAB (Status = ) TAKE ONE TABLET BY MOUTH EVERY DAY FOR ALLERGIES FOR FLUID BEHIND LEFT EAR. Rx# [id number] Last Released: 03/31/23 Qty/Days Supply: Rx Expiration Date: 03/29/24 Refills Remainin Non-VA COENZYME Q10 200MG CAP/TAB TAKE ONE CAPSULE BY MOUTH OUTPT DOCUSATE NA 100MG CAP (Status = Active) TAKE ONE CAPSULE BY MOUTH DAILY Rx# [id number] Last Released: 04/18/24 Qty/Days Supply: Rx Expiration Date: 11/14/24 Refills Remainin Indication: FOR STOOL SOFTENER OUTPT DOXAZOSIN MESYLATE 4MG TAB (Status = Active) TAKE ONE TABLET BY MOUTH AT BEDTIME FOR PROSTATE DOSE REDUCTION Rx# [id number] Last Released: 04/23/24 Qty/Days Supply: Rx Expiration Date: 08/09/24 Refills Remainin Indication: FOR PROSTATE OUTPT EZETIMIBE 10MG TAB (Status = Active) TAKE ONE TABLET BY MOUTH EVERY DAY FOR LOWERING CHOLESTEROL Rx# [id number] Last Released: 03/18/24 Qty/Days Supply: Rx Expiration Date: 09/08/24 Refills Remainin OUTPT FEXOFENADINE HCL 180MG TAB (Status = Pending) TAKE ONE TABLET BY MOUTH DAILY Login Date: 06/19/24 Qty/Days Supply: Refills Ordered: 3 OUTPT FLUTICASONE PROP 50MCG 120D NASAL INHL (Status = Pending) INSTILL 2 SPRAYS IN EACH NOSTRIL DAILY Login Date: 06/19/24 Qty/Days Supply: 04/25 Refills Ordered: 11 OUTPT FUROSEMIDE 40MG TAB (Status = Active) TAKE ONE TABLET BY MOUTH DAILY FOR BLOOD PRESSURE/WATER PILL Rx# [id number] Last Released: 06/10/24 Qty/Days Supply: Rx Expiration Date: 09/08/24 Refills Remainin OUTPT GABAPENTIN 600MG TAB (Status = Active) TAKE ONE TABLET BY MOUTH TWICE A DAY FOR PAIN/NEUROPATHY Rx# [id number] Last Released: 06/06/24 Qty/Days Supply: 180 Rx Expiration Date: 07/21/24 Refills Remainin OUTPT LACTULOSE 10GM/15ML ORAL SOLN (Status = Active) TAKE 15 ML BY MOUTH TWICE A DAY FOR CONSTIPATION Rx# [id number] Last Released: 06/10/24 Qty/Days Supply: Rx Expiration Date: 04/30/25 Refills Remainin Indication: FOR CONSTIPATION OUTPT LISINOPRIL 5MG TAB (Status = Active) TAKE ONE TABLET BY MOUTH DAILY FOR BLOOD PRESSURE Rx# [id number] Last Released: 06/17/24 Qty/Days Supply: Rx Expiration Date: 09/08/24 Refills Remainin OUTPT MAGNESIUM OXIDE 400MG TAB (Status = Active) TAKE ONE TABLET BY MOUTH DAILY WITH FOOD Rx# [id number] Last Released: 05/21/24 Qty/Days Supply: Rx Expiration Date: 09/08/24 Refills Remainin Indication: FOR MAGNESIUM REPLACEMENT OUTPT MENTHOL/M-SALICYLATE 10-15% TOP CREAM (Status = Active) APPLY SMALL AMOUNT TOPICALLY NEEDED Rx# [id number] Last Released: 03/11/24 Qty/Days Supply: Rx Expiration Date: 03/08/25 Refills Remainin Indication: FOR SORE MUSCLES OR JOINTS OUTPT METOPROLOL SUCCINATE 50MG SA TAB (Status = Active) TAKE ONE TABLET BY MOUTH EVERY DAY Rx# [id number] Last Released: 05/21/24 Qty/Days Supply: Rx Expiration Date: 08/09/24 Refills Remainin OUTPT MOMETASONE 200MCG/ACTUAT 120D ORAL INHL (Status = Active) INHALE TWO PUFFS BY MOUTH TWICE A DAY RINSE MOUTH AFTER EACH USE Rx# [id number] Last Released: 06/04/24 Qty/Days Supply: 04/25 Rx Expiration Date: 09/08/24 Refills Remainin OUTPT MONTELUKAST NA 10MG TAB (Status = Active) TAKE ONE TABLET BY MOUTH EVERY DAY Rx# [id number] Last Released: 05/27/24 Qty/Days Supply: Rx Expiration Date: 12/18/24 Refills Remainin OUTPT MULTIVITAMIN CAP/TAB (Status = Active) TAKE 1 CAP/TAB BY MOUTH DAILY SUPPLEMENT Rx# [id number] Last Released: 06/10/24 Qty/Days Supply: Rx Expiration Date: 09/08/24 Refills Remainin OUTPT OLODATEROL/TIOTROP 2.5MCG/ACTUAT 60D INH (Status = Discontinued) INHALE 2 PUFFS BY MOUTH EVERY DAY Rx# [id number] Last Released: 05/28/24 Qty/Days Supply: Rx Expiration Date: 12/18/24 Refills Remainin OUTPT OLODATEROL/TIOTROP 2.5MCG/ACTUAT 60D INH (Status = Active) INHALE 2 PUFFS BY MOUTH EVERY DAY Rx# [id number] Last Released: 06/19/24 Qty/Days Supply: Rx Expiration Date: 06/18/25 Refills Remainin OUTPT OMEPRAZOLE 40MG EC CAP (Status = Active) TAKE ONE CAPSULE BY MOUTH EVERY MORNING 30 MINUTES BEFORE BREAKFAST Rx# [id number] Last Released: 06/06/24 Qty/Days Supply: Rx Expiration Date: 03/08/25 Refills Remainin Indication: FOR STOMACH ACID OUTPT PRAVASTATIN NA 20MG TAB (Status = Active) TAKE ONE-HALF TABLET BY MOUTH SUNDAYS, MONDAYS, WEDNESDAYS AND FRIDAYS FOR CHOLESTEROL. CALL YOUR PROVIDER IF YOU HAVE MUSCLE PAIN, TENDERNESS OR WEAKNESS Rx# [id number] Last Released: 03/22/24 Qty/Days Supply: Rx Expiration Date: 09/08/24 Refills Remainin Indication: FOR CHOLESTEROL OUTPT TERBINAFINE HCL 250MG TAB (Status = ) TAKE ONE TABLET BY MOUTH DAILY Rx# [id number] Last Released: 05/16/23 Qty/Days Supply: Rx Expiration Date: 04/03/24 Refills Remainin Indication: FOR FUNGAL INFECTION OUTPT VITAMIN B COMPLEX CAP (Status = Active) TAKE ONE CAPSULE BY MOUTH DAILY Rx# [id number] Last Released: 03/22/24 Qty/Days Supply: Rx Expiration Date: 09/08/24 Refills Remainin SUPPLIES OUTPT ACCU-CHEK GUIDE (GLUCOSE) TEST STRIP (Status = Active) USE ONE STRIP THREE TIMES WEEKLY FOR BLOOD GLUCOSE MONITORING (STORE IN ORIGINAL BOTTLE WITH LID ON AT ALL TIMES) Rx# [id number] Last Released: 1/23/25 Qty/Days Supply: 50/30 Rx Expiration Date: 03/08/25 Refills Remainin OUTPT ALCOHOL PREP PAD (Status = Active) USE PAD TO SUPPLY DIRECTED Rx# [id number] Last Released: 03/08/24 Qty/Days Supply: 200/30 Rx Expiration Date: 03/08/25 Refills Remainin Potential risks, benefits, and alternative to medications prescribed were discussed with Blodgett/caregiver who was given an opportunity to ask questions, which were answered to the best of my ability and seemingly to their satisfaction. Blodgett/caregiver was/were instructed to contact provider (means provided) with any concerns or questions. A list of reconciled medications was provided to the /caregiver. /loli/ Dre Contreras M.D. STAFF PACT PHYSICIAN Signed: 06/19/2024 13:55 DRE CONTRERAS [facility] Jun 19, 2024 01:12 PM NURSING [...] goes over with it with him PCP: [place] specialists: podiatry, prosthetics, orthopedics, caridiology wants to discuss possible allergy medication and also sinus drainage that he is having did see eye doctor last Monday - they adjust glasses but still having some dizziness when looking through bi-focal also states that he is feeling a pulse in right ear along with tinitus RHS Screen: RHS Screen Environmental Check Screening was not completed at this time due to: Other: declined JANEY-DIABETIC FOOT SCREEN: Patient Refused DM Foot exam this visit. /loli/ ZACK HOOKER lpn Signed: 06/19/2024 13:25 ZACK HOOKER [facility]
--- OUTSIDE RECORDS SUMMARY | 2024-11-05 15:53 | XMS_ITS | Encounter Summary ---
Author Name Department of [facility] ([place]) Organization 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 Date/Time Encounter Type Encounter Description Reason Provider Source Mar 07, 2024 10:00 AM OFFICE O/P EST MOD 30 MIN PRIMARY CARE/MEDICINE ICD-10-CM L72.3 Sebaceous cyst DRE CONTRERAS Manjinder Encounter Template Text not used by [place] Assessments - Encounter Diagnoses This section includes the primary and secondary diagnoses documented for the Encounter. Date/Time Primary/Secondary Diagnosis Diagnosis Name Provider Source Mar 07, 2024 10:34 AM PRIMARY Sebaceous cyst DRE CONTRERAS [facility] Mar 07, 2024 10:34 AM SECONDARY Benign prostatic hyperplasia without lower urinry tract symp DRE CONTRERAS [facility] Mar 07, 2024 10:34 AM SECONDARY Chronic ischemic heart disease, unspecified [facility] Mar 07, 2024 10:34 AM SECONDARY Chronic kidney disease, unspecified [facility] Mar 07, 2024 10:34 AM SECONDARY Chronic obstructive pulmonary disease, unspecified [facility] Mar 07, 2024 10:34 AM SECONDARY Essential (primary) hypertension [facility] Mar 07, 2024 10:34 AM SECONDARY Gastro-esophageal reflux disease without esophagitis [facility] Mar 07, 2024 10:34 AM SECONDARY Hyperlipidemia, unspecified [facility] Mar 07, 2024 10:34 AM SECONDARY Iron deficiency anemia, unspecified [facility] Mar 07, 2024 10:34 AM SECONDARY Polyp of colon 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 This section includes future appointments and future orders which are active, pending or scheduled. Future Appointments This section includes appointments that were scheduled to occur 6 months from the date of the Encounter, up to a maximum of 20 appointments. The data comes from all [facility] facilities. Appointment Date/Time Appointment Type Appointme nt Facility Name Apr 10, 2024 11:30 AM AMBULATORY - SURGERY [facility] Apr 10, 2024 11:35 AM AMBULATORY - NONE [facility] Jun 17, 2024 10:00 AM AMBULATORY - NONE [facility] Jun 19, 2024 01:30 PM AMBULATORY - MEDICINE [facility] Jul 03, 2024 09:30 AM AMBULATORY - SURGERY [facility] Jul 03, 2024 09:35 AM AMBULATORY - NONE [facility] Jul 03, 2024 11:00 AM AMBULATORY - NONE [facility] Jul 16, 2024 10:15 AM AMBULATORY - NONE [facility] August 14, 2024 10:30 AM AMBULATORY - NONE [facility] August 22, 2024 08:30 AM AMBULATORY - NONE [facility] Aug 27, 2024 09:10 AM AMBULATORY - NONE [facility] Aug 27, 2024 01:00 PM AMBULATORY - REHAB MEDICIN [facility] Sep 05, 2024 09:30 AM AMBULATORY - MEDICINE [facility] Lab Results: +/- 30 days of the encounter This section includes the Chemistry and Hematology Lab Results on record with [place] for the patient. Radiology Reports and Pathology Reports are provided separately, in subsequent sections. Lab Results This section contains the Chemistry/Hematology Results that were resulted 30 days before or 30 daysafter the date of the Encounter. Date/Time Source Result Type Result - Unit Interpretation Reference Range Specimen Type Comment Feb 29, 2024 09:49 AM [facility] A1C % BLOOD Specimen Type: BLOOD [...] Sep 08, 2023 10:52 AM Reporting Lab: [address] [address] Performing Lab: [address] [address] A1C % 6.1 H 0.0-5.6 Feb 29, 2024 09:49 AM [facility] LIPID PNL PLASMA Specimen T ype: [...] Sep 08, 2023 10:52 AM Reporting Lab: [address] [address] Performing Lab: [place] [phone] DIR. HDL 41 mg/dL L >=60 TRIGLYCERIDES 214 mg/dL H See Comment DIR LDL canc CHOL 152 mg/dL See Comment LDL (CALCULATED) 68 mg/dL See Comment Feb 29, 2024 09:49 AM [facility] URINE ALBUMIN/CREAT (RAND URINE) URINE Specimen Type: URINE No comment entered. Ordering Provider: DRE CONTRERAS Report Released Date/Time: Sep 08, 2023 10:52 AM Reporting Lab: [address] [address] Performing Lab: [address] [address] URINE ALBUMIN(RAND URINE) 1.8 mg/dL <2.0 CREAT(RNDM URINE) 104.60 mg/dL 40-278 CREAT RATIO (RNDM URINE) 17 mg/g <30 Feb 29, 2024 09:49 AM [facility] THYROID CASCADE PANEL SERUM Spe cimen Type: SERUM No comment entered. Ordering Provider: DRE CONTRERAS Report Released Date/Time: Sep 08, 2023 10:52 AM Reporting Lab: [address] [address] Performing Lab: [address] [address] TSH3 ULTRA EIA 0.868 u[IU]/mL 0.550-4.78 0 Feb 29, 2024 09:49 AM [facility] COMPREHENSIVE PNL PLASMA Specime n Type: [...] Sep 08, 2023 10:52 AM Reporting Lab: [address] [address] Performing Lab: [address] [address] ANION GAP 5 mmol/L 5-15 EGFR 64 [...] H 0.73-1.18 Feb 29, 2024 09:49 AM [facility] CBC W/DIFF BLOOD Specimen T ype: BLOOD No comment entered. Ordering Provider: DRE CONTRERAS Report Released Date/Time: Sep 08, 2023 10:52 AM Reporting Lab: [address] [address] Performing Lab: [address] [address] WBC 6.6 10*3/uL 4.0-11.0 RBC 3.89 10*6/uL [...] 59 124/54 16 94 0 241.9 37 [facility] Social History: Smoking Status [...] took place. Date/Time Current Smoking Status Comment [facility] Sep 08, 2023 10:30 AM VA-TOBACCO USER EVERY DAY [facility] Tobacco Use History This section includes a history of the smoking, or tobacco-related health factors, that were collected on or before the date of the Encounter. The data comes from the [place] facility where the Encounter took place. Date/Time Smoking Status/Tobac co Use Comment Facility Sep 08, 2023 10:30 AM VA-TOBACCO USE ADVICE [facility] Sep 08, 2023 10:30 AM VA-TOBACCO USE CAREER REPRESENTATIVE NO [facility] Sep 08, 2023 10:30 AM VA-TOBACCO USE MED NO [facility] Sep 08, 2023 10:30 AM VA-TOBACCO USE WI 30 MIN OF WAKEUP [facility] Sep 08, 2023 10:30 AM VA-TOBACCO USER EVERY DAY [facility] August 23, 2022 08:30 AM VA-TOBACCO USE 30 YEARS OR MORE [facility] August 23, 2022 08:30 AM VA-TOBACCO USE ADVICE [facility] August 23, 2022 08:30 AM VA-TOBACCO USE CAREER REPRESENTATIVE NO [facility] August 23, 2022 08:30 AM VA-TOBACCO USE MED NO [facility] August 23, 2022 08:30 AM VA-TOBACCO USE [place] 30 MIN OF [facility] August 23, 2022 08:30 AM VA-TOBACCO USER EVERY DAY [facility] May 07, 2021 10:00 AM VA-TOBACCO USE 30 YEARS OR MORE [facility] May 07, 2021 10:00 AM VA-TOBACCO USE ADVICE [facility] May 07, 2021 10:00 AM VA-TOBACCO USE CAREER REPRESENTATIVE [facility] May 07, 2021 10:00 AM VA-TOBACCO USE MED [facility] [place] May 07, 2021 10:00 AM VA-TOBACCO USE WI 30 MIN OF [facility] May 07, 2021 10:00 AM VA-TOBACCO USER EVERY DAY [facility] May 07, 2020 01:00 PM VA-TOBACCO USE 30 YEARS OR MORE [facility] May 07, 2020 01:00 PM VA-TOBACCO USE ADVICE [facility] May 07, 2020 01:00 PM VA-TOBACCO USE CAREER REPRESENTATIVE NO [facility] May 07, 2020 01:00 PM VA-TOBACCO USE MED [facility] May 07, 2020 01:00 PM VA-TOBACCO USE WI 30 MIN OF [facility] May 07, 2020 01:00 PM VA-TOBACCO USER EVERY DAY [facility] Feb 13, 2019 11:11 AM VA-TOBACCO USE 30 YEARS OR MORE [facility] Feb 13, 2019 11:11 AM VA-TOBACCO USE ADVICE [facility] Feb 13, 2019 11:11 AM VA-TOBACCO USE CAREER REPRESENTATIVE NO [facility] Feb 13, 2019 11:11 AM VA-TOBACCO USE MED NO [facility] Feb 13, 2019 11:11 AM VA-TOBACCO USE WI 30 MIN OF [facility] Feb 13, 2019 11:11 AM VA-TOBACCO USER EVERY DAY [facility] Sep 25, 2017 04:04 PM VA-TOBACCO USE 30 YEARS OR MORE [facility] Sep 25, 2017 04:04 PM VA-TOBACCO USE ADVICE [facility] Sep 25, 2017 04:04 PM VA-TOBACCO USE CAREER REPRESENTATIVE NO [facility] Sep 25, 2017 04:04 PM VA-TOBACCO USE MED NO [facility] Sep 25, 2017 04:04 PM VA-TOBACCO USE WI 30 MIN OF WAKEUP [facility] Sep 25, 2017 04:04 PM VA-TOBACCO USER EVERY DAY [facility] Sep 20, 2017 12:35 PM HF.TOBACCO COUNSELING REFUSED [facility] Jul 11, 2017 01:33 PM HF.TOBACCO COUNSELING REFUSED [facility] Jul 11, 2017 01:33 PM TOBACCO CESSATION MEDS REFUSED [facility] Jul 11, 2017 01:33 PM TOBACCO CESSATION REFERRAL REFUSED [facility] Jul 11, 2017 01:33 PM TOBACCO OFFERRED STOP SMOKING CLINIC [facility] May 05, 2017 08:20 AM HF.TOBACCO COUNSELING REFUSED [facility] Feb 01, 2017 01:03 PM HF.TOBACCO COUNSELING REFUSED [facility] Aug 29, 2016 08:43 AM HF.TOBACCO COUNSELING REFUSED 2 pk/day declined ( does not wnat to quit) [facility] Aug 29, 2016 08:43 AM TOBACCO CESSATION MEDS REFUSED [facility] Aug 29, 2016 08:43 AM TOBACCO CESSATION REFERRAL REFUSED [facility] Aug 29, 2016 08:43 AM TOBACCO OFFERRED STOP SMOKING CLINIC [facility] May 23, 2016 09:59 AM HF.TOBACCO COUNSELING REFUSED [facility] Feb 29, 2016 09:30 AM HF.TOBACCO COUNSELING REFUSED [facility] Aug 26, 2015 06:35 AM HF.TOBACCO COUNSELING REFUSED [facility] Aug 26, 2015 06:35 AM TOBACCO CESSATION MEDS REFUSED [facility] Aug 26, 2015 06:35 AM TOBACCO CESSATION REFERRAL REFUSED [facility] Aug 26, 2015 06:35 AM TOBACCO OFFERRED PT MEDS (PROVIDER) [facility] Aug 26, 2015 06:35 AM TOBACCO OFFERRED STOP SMOKING CLINIC [facility] Advance Directives: All historical and current Section Date Range: From patient's date of to the date document was created. This section includes ALL of a patient's completed or amended [place] Advance and Rescinded Directives. The entries below indicate that a directive exists for the patient, but an actual copy is not included with this document. The data comes from all [place] facilities. Date Advance Directives Provider Source August 13, 2013 ADVANCE DIRECTIVE MARITA SANDERS [facility] Oct 13, 1998 ADVANCE DIRECTIVE Jessica YOST Louann [facility] Mar 14, 1994 ADVANCE DIRECTIVE YUMIKO HOLMAN [facility] Encounter Notes: All associated encounter notes This section contains the clinical notes associated to the Encounter. Date/Time Encounter Note(s) Provider Source Mar 07, 2024 10:16 AM PRIMARY CARE NOTE: LOCAL TITLE: [facility] STANDARD TITLE: PRIMARY CARE NOTE [...] year-old being seen today for above reason. [place] has a couple of areas on back - one has pus in it and possible cyst. No drianage from areas now. states from lower back to hip area - states it gets itchy and irritated. Does not have rash there now. wants to see about getting documentation that he does not need to wear seat belt over shoulder due to pacemaker; ok with wearing lap belt. ADvied to talk to integration specialist about this. abcess on buttock - seen [...] Breathing overall stable. ventricular arrhythmia - sees integration specialist. ON amiodarone, metorpolol. Has pacemaker. No palpaitons or dinzziness. CAD, CHF - EF 29%. On ASA, BB, lasix, lisinopril. Sees integration specialist. No chest pain, LE edema, orthoipnea, PND. [...] smoking. 5. ventricular arrhythmia - as per integration specialist 6. coronaty artery disease, congestive heart failure - clinically stable, continue meds. Follow up with integration specialist. 7. benign prostatic hyptrophy - med does [...] M.D. M.D. Signed: 03/07/2024 10:35 DRE CONTRERAS [facility] Mar 07, 2024 09:52 AM NURSING NOTE: LOCAL TITLE: [facility] STANDARD TITLE: NURSING NOTE DATE OF NOTE: MAR 07, 2024@09:52 ENTRY DATE: MAR 07, 2024@09:52:05 AUTHOR: ZACK HOOKER EXP COSIGNER: URGENCY: STATUS: COMPLETED TWO OR MORE PATIENT IDENTIFIERS REQUIRED FULL NAME SS NUMBER Date [place] here for routine appointment PCP: [place] Specialists: podiatry, prosthetics, orthopedics, cardiovascular [place] has a couple of areas on back - one has pus in it and possible cyst states from lower back to hip area - states it gets itchy and irritated [place] wants to see about getting documentation that [...] Not worried about housing near future The reports the following: Within the past 12 [...] you interested in speaking with a nutrition lean coach (dietitian)? Dietitians, exercise therapists, and healthy behavior coaches will work with you to create a customized plan that includes meal preparation, exercise guidance, and motivation to lose weight. Patient declines referral. JANEY-EDUCATION ASSESSMENT: `````````````````````````` ```````````` ANNUAL EDUCATION NEEDS/BARRIER ASSESSMENT Primary healthcare language: Kazakh Barriers to Learning: Physical: Hearing Impairment Comment: [...] HOOKER lpn Signed: 03/07/2024 10:15 ZACK HOOKER [facility]
--- OUTSIDE RECORDS SUMMARY | 2024-11-05 15:53 | XMS_ITS | Encounter Summary ---
Author Organization [facility] Address [address] [place] [address] Care Team Providers Care Public Health Internship Name Role Phone Yonathan Kellogg MD Unavailable [phone] Denise Elmore DEVELOPMENTAL EDUCATION INSTRUCTOR Primary Care Provider [phone] Omar River MD Unavailable Unavailable None, Provider Primary Care Provider Unavaila [facility] Kaitlin Fuentes MD Unavailable [phone] Dre Boss MD Primary Care Provider [phone] Agustin Vidal MD Unavailable Aaron Rivera MD Unavailable Unavailable Patricia Lamar NP Unavailable [phone] Agustin Vidal MD Unavailable Eduardo Foster MD Unavailable Unavailable Encounter Details Date Type Department Care Team (Late st Contact Info) Description 08/30/2018 Abstract [facility] [address] [place] [phone] Yonathan Kellogg MD [address] [place] [address] Social History Tobacco Use Types Packs/Day Years Used Date Smoking Tobacco: Every Day Cigarettes 2 50 Smokeless Tobacco: Never Alcohol Use Standard Drinks/Week [...] on file documented as of this encounter Plan of Treatment Upcoming Encounters Date Type Department Care Team (Late st Contact Info) Description 11/28/2024 9:30 AM CDT Appointment [facility] Integration Architect [address] [place] [address] Ildefonso Mai MD [address] [place] [address] 12/02/2024 11:00 AM CDT Allied Health/Nurse Visit [facility] [address] [place] [address] Yonathan Kellogg MD [address] [place] [phone] 12/02/2024 11:15 AM CDT Office Visit [facility] [address] [place] [address] Yonathan Kellogg MD [address] [place] [address] 01/01/2025 1:15 AM CDT Allied Health/Nurse Visit [facility] [address] [place] [address] Yonathan Kellogg MD [address] [place] [address] documented as of this encounter Procedures Procedure Name Priority Date/Time Associated Diagnosis Comments LIPID PANEL (OUTSIDE LAB) Routine 07/27/2018 CBC W/ MANUAL DIFF (OUTSIDE) Routine 07/27/2018 COMPREHENSIVE METABOLIC PANEL Routine 07/27/2018 documented in this encounter Results * LIPID PANEL (OUTSIDE LAB) (07/27/2018) Pathologist [facility] CHOLESTEROL 158 TRIGLYCERIDES 225 HDL 40 LDL (CALCULATED) 97 07/27/2018 us Doc [facility] Abstract LAB-OUTSIDE/ABSTRACTED Final Result * COMPREHENSIVE METABOLIC PANEL (07/27/2018) Pathologist [facility] SODIUM S/P/B 137 POTASSIUM S/P/B 5.1 CO2 25 CHLORIDE S/P/B 104 GLUCOSE 95 mg/dL CALCIUM S/P/B 9.1 BUN 26 CREATININE S/P/B 1.16 0.7 - 1.3 ALKALINE PHOSPHATASE S/P/B 38 ALT 29 AST 20 BILIRUBIN TOTAL S/P/B 0.3 ALBUMIN S/P/B 3.6 3.5 - 5.0 TOTAL PROTEIN S/P/B 7.3 07/27/2018 us Doc [facility] Abstract LABORATORY Edited Resul t - Final * CBC W/ MANUAL DIFF (OUTSIDE) (07/27/2018) Pathologist [facility] WBC 7.80 RBC 3.78 HGB 11.1 HCT 34.5 MCV 91.3 MCH 29.4 MCHC 32.2 RDW 45.3 PLT 360 MPV 9.5 NEUTROPHILS % 55 LYMPHOCYTES % 30 MONOCYTES % 8.5 EOSINOPHILS % 5.1 BASOPHILS % 0.9 07/27/2018 us Doc [facility] Abstract LABORATORY Final Result documented in this encounter Visit Diagnoses Not on filedocumented in this encounter Additional Health Concerns Infection Onset Date Last Indicated Resolved Time COVID-19 Rule Out 12/15/2020 12/15/2020 12/15/2020 7:21 PM CDT COVID-19 Rule Out 04/05/2021 04/05/2021 04/05/2021 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 documented as of this encounter Care Teams Public Health Internship Relationship Specialty Start Date End Date Denise Elmore NP [address] [place] [phone] PCP - General NURSE PRACTITIONER 10/05/17 07/21/20 Jose C Georges MD PCP - General 07/22/20 08/18/20 Dre Boss MD [address] [place] [id number] PCP - General INTERNAL MEDICINE 08/19/20 Yonathan Kellogg MD [address] [place] [address] EP [employer]re [employer]er CLINICAL CARDIAC ELECTROPHYSIOLOGY 10/05/17 Omar River MD INTERVENTIONAL CARDIOLOGY 10/27/17 1 Kaitlin Fuentes MD Consulting Physician INTERNAL MEDICINE 07/23/20 Agustin Vidal MD [address] [place] [address] Vascular/[employer] INTERNAL MEDICINE 08/19/20 Aaron Rivera MD [address] [place] [address] Consulting Physician INTERVENTIONAL CARDIOLOGY 12/28/20 1 04/18/23 Patricia Lamar NP [address] [facility] [address] [place] [phone] Nurse Practitioner Nurse Practitioner [employer] 12/28/20 08/14/24 Agustin Vidal MD [address] [facility] [address] [place] [phone] Vascular/[employer] INTERNAL MEDICINE 08/18/21 Eduardo Foster MD [address] [place] [address] Consulting Physician Orthopaedic Surgery Sports Medicine 11/03/23 documented as of this encounter
--- OUTSIDE RECORDS SUMMARY | 2024-11-05 15:53 | XMS_ITS | Encounter Summary ---
Author Name [facility] of [facility] ([place]) Organization Department of [facility] ([place]) Address [address] [place] [address] Care Team Providers Care Regulator Assembler Name Role Phone DRE CONTRERAS Primary Care Provider Unavailabl e Selected Encounter This section includes the information on record at [place] for the Encounter. Date/Time Encounter Type Encounter Description Reason Provider Source Oct 11, 2024 08:30 AM OFFICE O/P EST MOD 30 MIN PRIMARY CARE/MEDICINE ICD-10-CM L72.3 Sebaceous cyst DRE CONTRERAS Manjinder Encounter Template Text not used by [place] Assessments - Encounter Diagnoses This section includes the primary and secondary diagnoses documented for the Encounter. Date/Time Primary/Secondary Diagnosis Diagnosis Name Provider Source Oct 11, 2024 08:52 AM PRIMARY Sebaceous cyst DRE CONTRERAS [facility] Oct 11, 2024 08:52 AM SECONDARY Benign prostatic hyperplasia without lower urinry tract symp DRE CONTRERAS [facility] Oct 11, 2024 08:52 AM SECONDARY Chronic ischemic heart disease, unspecified [facility] Oct 11, 2024 08:52 AM SECONDARY Chronic kidney disease, unspecified [facility] Oct 11, 2024 08:52 AM SECONDARY Chronic obstructive pulmonary disease, unspecified [facility] Oct 11, 2024 08:52 AM SECONDARY Essential (primary) hypertension [facility] Oct 11, 2024 08:52 AM SECONDARY Gastro-esophageal reflux disease without esophagitis [facility] Oct 11, 2024 08:52 AM SECONDARY Hyperlipidemia, unspecified [facility] Oct 11, 2024 08:52 AM SECONDARY Iron deficiency anemia, unspecified [facility] Oct 11, 2024 08:52 AM SECONDARY Peripheral vascular disease, unspecified [facility] Oct 11, 2024 08:52 AM SECONDARY Re-entry ventricular arrhythmia [facility] Oct 11, 2024 08:52 AM SECONDARY Sleep related leg cramps [facility] Oct 11, 2024 08:52 AM SECONDARY Type 2 diabetes mellitus without complications 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 Plan of Treatment: Future Appointments (+ 6 months) and Future Tests (+/- 45 days) The Plan of Treatment section includes future care activities for the [facility] [place] [facility] This section includes future appointments and future orders which are active, pending or scheduled. Future Appointments This section includes appointments that were scheduled to occur 6 months from the date of the Encounter, up to a maximum of 20 appointments. The data comes from all [facility]. Appointment Date/Time Appointment Type Appointme nt Facility Name Oct 21, 2024 10:00 AM AMBULATORY - NONE [facility] Oct 23, 2024 10:00 AM AMBULATORY - SURGERY [facility] Oct 23, 2024 10:05 AM AMBULATORY - NONE [facility] Nov 06, 2024 08:30 AM AMBULATORY - NONE [facility] Nov 28, 2024 09:30 AM AMBULATORY - NONE [facility] Jan 21, 2025 10:00 AM AMBULATORY - NONE [facility] Feb 05, 2025 11:30 AM AMBULATORY - SURGERY [facility] Feb 05, 2025 11:35 AM AMBULATORY - NONE [facility] Feb 27, 2025 09:30 AM AMBULATORY - NONE [facility] Mar 06, 2025 09:30 AM AMBULATORY - MEDICINE [facility] Active, Pending, and Scheduled Orders This section includes a listing of several types of active, pending, and scheduled orders, including clinic medications orders, diagnostic test orders, procedure orders and consult orders; where the start date of the order is 45 days before the date of the Encounter or 45 days after the date of theEncounter. The data comes from all [place] treatment facilities. Test Date/Time Test Type Test Details Facility Name Oct 03, 2024 01:35 PM Consult Order COMMUNITY CARE- ROUTINE OPTOMETRY [facility] Oct 28, 2024 01:11 PM Consult Order PROSTHETIC S REQUEST - OUTPT [facility] Oct 30, 2024 12:22 PM Consult Order COMM[facility]ITY [facility] SURGERY [facility] Vital Signs: All taken on the encounter date This section contains inpatient and outpatient Vital Signs collected on the date of the Encounter. Date/Time Temperature Pulse Blood Pressure Respiratory Rate SP02 Pain Height Weight Body Mass Index Source Oct 11, 2024 08:21 AM 97.5 F 68 /min 131/76 mm[Hg] 18 /min 95 % 3 233.9 lb 36 [facility] Social History: Smoking Status (Most current) and Tobacco Use (All prior to encounter date) This section includes the most current, and the historical, smoking and tobacco- related health factors from the [place] facility where the Encounter took place. Current Smoking Status This section includes the most current smoking, or tobacco-related health factor, from the [place] facility where the Encounter took place. Date/Time Current Smoking Status Comment Melissa ity Sep 05, 2024 09:30 AM VA-TOBACCO USE SANDI RY DAY CIGARETTES [facility] Tobacco Use History This section includes a history of the smoking, or tobacco-related health factors, that were collected on or before the date of the Encounter. The data comes from the [place] facility where the Encounter took place. Date/Time Smoking Status/Tobac co Use Comment Facility Sep 05, 2024 09:30 AM VA-TOBACCO SCREEN FOLLOW-UP [facility] Sep 05, 2024 09:30 AM VA-TOBACCO USE ADVICE [facility] Sep 05, 2024 09:30 AM VA-TOBACCO USE GERIATRIC PHYSICIAN NO [facility] Sep 05, 2024 09:30 AM VA-TOBACCO USE EVERY DAY CIGARETTES [facility] Sep 05, 2024 09:30 AM VA-TOBACCO USE MED NO [facility] Sep 08, 2023 10:30 AM VA-TOBACCO USE 30 YEARS OR MORE [facility] Sep 08, 2023 10:30 AM VA-TOBACCO USE ADVICE [facility] Sep 08, 2023 10:30 AM VA-TOBACCO USE GERIATRIC PHYSICIAN NO [facility] Sep 08, 2023 10:30 AM VA-TOBACCO USE MED NO [facility] Sep 08, 2023 10:30 AM VA-TOBACCO USE [place] 30 MIN OF [facility] Sep 08, 2023 10:30 AM VA-TOBACCO USER EVERY DAY [facility] August 23, 2022 08:30 AM VA-TOBACCO USE 30 YEARS OR MORE [facility] August 23, 2022 08:30 AM VA-TOBACCO USE ADVICE [facility] August 23, 2022 08:30 AM VA-TOBACCO USE GERIATRIC PHYSICIAN NO [facility] August 23, 2022 08:30 AM VA-TOBACCO USE MED NO [facility] August 23, 2022 08:30 AM VA-TOBACCO USE WI 30 MIN OF [facility] August 23, 2022 08:30 AM VA-TOBACCO USER EVERY DAY [facility] May 07, 2021 10:00 AM VA-TOBACCO USE 30 YEARS OR MORE [facility] May 07, 2021 10:00 AM VA-TOBACCO USE ADVICE [facility] May 07, 2021 10:00 AM VA-TOBACCO USE GERIATRIC PHYSICIAN NO [facility] May 07, 2021 10:00 AM VA-TOBACCO USE MED [facility] May 07, 2021 10:00 AM VA-TOBACCO USE [place] 30 MIN OF [facility] May 07, 2021 10:00 AM VA-TOBACCO USER EVERY DAY [facility] May 07, 2020 01:00 PM VA-TOBACCO USE 30 YEARS OR MORE [facility] May 07, 2020 01:00 PM VA-TOBACCO USE ADVICE [facility] May 07, 2020 01:00 PM VA-TOBACCO USE GERIATRIC PHYSICIAN NO [facility] May 07, 2020 01:00 PM VA-TOBACCO USE MED NO [facility] May 07, 2020 01:00 PM VA-TOBACCO USE WI 30 MIN OF [facility] May 07, 2020 01:00 PM VA-TOBACCO USER EVERY DAY [facility] Feb 13, 2019 11:11 AM VA-TOBACCO USE 30 YEARS OR MORE [facility] Feb 13, 2019 11:11 AM VA-TOBACCO USE ADVICE [facility] Feb 13, 2019 11:11 AM VA-TOBACCO USE GERIATRIC PHYSICIAN NO [facility] Feb 13, 2019 11:11 AM VA-TOBACCO USE MED NO [facility] Feb 13, 2019 11:11 AM VA-TOBACCO USE WI 30 MIN OF [facility] Feb 13, 2019 11:11 AM VA-TOBACCO USER EVERY DAY [facility] Sep 25, 2017 04:04 PM VA-TOBACCO USE 30 YEARS OR MORE [facility] Sep 25, 2017 04:04 PM VA-TOBACCO USE ADVICE [facility] Sep 25, 2017 04:04 PM VA-TOBACCO USE GERIATRIC PHYSICIAN NO [facility] Sep 25, 2017 04:04 PM VA-TOBACCO USE MED NO [facility] Sep 25, 2017 04:04 PM VA-TOBACCO USE WI 30 MIN OF [facility] Sep 25, 2017 04:04 PM VA-TOBACCO [...] ALL of a patient's completed or amended [place] Advance and Rescinded Directives. The entries below indicate that a directive exists for the patient, but an actual copy is not included with this document. The data comes from all [place] facilities. Date Advance Directives Provider Source August 13, 2013 ADVANCE DIRECTIVE MARITA SANDERS [facility] Oct 13, 1998 ADVANCE DIRECTIVE Jessica YOST [facility] Mar 14, 1994 ADVANCE DIRECTIVE YUMIKO HOLMAN [facility] Encounter Notes: All associated encounter notes This section contains the clinical notes associated to the Encounter. Date/Time Encounter Note(s) Provider Source Oct 11, 2024 08:27 AM PRIMARY CARE NOTE: LOCAL TITLE: [facility] STANDARD TITLE: PRIMARY CARE NOTE DATE OF NOTE: OCT 11, 2024@08:27 ENTRY DATE: OCT 11, 2024@08:27:50 AUTHOR: DRE CONTRERAS EXP COSIGNER: URGENCY: STATUS: COMPLETED CHIEF COMPLAINT: Routine appt for problems listed below. HISTORY OF PRESENT ILLNESS: Nursing notes reviewed. This is a 69 year-old being seen today for above reason. PVD - poor pulse in left arm. Seeen by c application developer and vascular. Will get UE arteriogram coming up. Abscess, sebaceous cyst- seen surgeon. Had abx more than once. This has resolved. leg cramps - on MgOx. Still takin gmed. CKD- last creat was 1.40 and eGFR 54. This is similar to last. Advised to push fluids and avoid NSADID. COPD - on momentane, albuterol, oldaterol/tiotropium. Breathiging has been stable. Using inahlers regularly. ventricular arrhythmia - has pacemaker. On amiodarone and metoprolol. Sees cardilogist. CAD, CHF - last EF 25%. ON ASA, BB, Lasix, and lisinopril. No chest pain, SOB, orthopnea, PND, pedeal edema. BPH - on doxazosin. Reports urnating ok. HTN - on lisinopril, metoprolol, Lasix, and doxazosin. BP ok on current rx. GERD - on omeprazole. No longer taking this med. hyperlipidemia - on pravastatin and zetia. Will check labs at next appt. DM2 - diet only. Last HbA1c was 6.2%. This is same as last. Advised to cut back on carbs. anemia- last H/H 12.3/38.5. This is similar to last. No GI sypmpmtoms. colon polyp - last colonoscopy was 12/15 and due 12/18. Vet declines colonoscopy. PAST MEDICAL HISTORY: Medications: As listed in chart and reviewed. Allergies: ROSUVASTATIN, SIMVASTATIN, FERROUS SULFATE, SPIRONOLACTONE, ATORVASTATIN CILOSTAZOL >>Non-VA provider(s): card, chiropractor, vascular, renal, endo SOCIAL HISTORY: Habits (Y/N): [y ] Tabacco [...] RESP BP PAIN WT (LB) P OX 10/11/24 @ 0821 97.5 68 18 131/76 3 233.9 95 Physical Exam: General: NAD. Awake, alert, oriented x3. Heart: RRR. No murmurs, gallops, rubs. Lungs: CTAB without crackles, rhonchi, or wheeze. Abdomen: Pos bowel sounds, soft, non-distended. No tenderness, guarding, rebound. No HSM. Extremities: No clubbing, cyanosis, edema. Dec pulse in left UE. Psychiatric: Pleasant, cooperative. Affect is full and mood congruent. Labs: [x ] Reviewed with patient from 08/27/24 (previously reviewed on 09/05/24). ASSESSMENT/PLAN: 1. sebacous cyst - this has resolved at this time. 2. leg cramps - med does help, continui 3. chronic kidney disease - stable, push fluuids, advoid NSAIDs, monitor labs 4. chronic obstructive pulmonary disease- breathing is stable, continue inhalers 5. ventricular arrhythmia - stable, continue meds and follow up with c application developer 6. coronary artery disease, congestive heart fialure - cliically stable, conntinue meds, follow up with c application developer 7. benign prostatic hyptrophhy - med does help, continue 8. hypertension - blood pressure ok, conitnue meds 9. gastroepshgoeal reflux disease- stopped med and no heartburn off med 10. hyperlipdiemia - continue med and diet, check labs at next appt 11. diabetes mellitus type 2 - stable with diet alone. See eye doctor. [place] labs 12 anemia - improved. Monitor labs 13. peripheral vascular disease- as per vascular Follow-up: 03/20 as planned [ ] Get labs 1 week before: Total time: 30 mins On the date of encounter, I spent 30 minutes on chart review, history, physical examination, treatment planning, education and counseling of the patient/family/caregiver, placing orders, reviewing labs and/or imaging, communicating with other health care providers, documentation in the electronic health record. -For new medications, potential side effects reviewed [...] patient/caregiver: MRT5 - Allergies/ADRs FACILITY ALLERGY/ADR -------- [facility] ATORVASTATIN [facility] CILOSTAZOL [facility] FERROUS SULFATE [facility] ROSUVASTATIN [facility] SIMVASTAT[facility] SPIRONOLACTONE [facility] [place] [facility] FERROUS SULFATE [facility] ROSUVASTATIN [facility] [place] SIMVASTATIN MRR1 - Med Reconciliation INCLUDED IN THIS LIST: Alphabetical list of active outpatient prescriptions dispensed from this [place] (local) and dispensed from another [place] or [facility] facility (remote) as well as inpatient orders (local pending and active), local clinic medications, locally documented non-VA medications, and local prescriptions that have or been discontinued in the past 90 days. Non-VA Meds Last Documented On: May 15, 2019 NOTE The display of VA prescriptions dispensed from another [place] or [facility] facility (remote) is limited to active outpatient prescription entries matched to National Drug File at the originating site and may not include some items such as investigational drugs, compounds, etc. NOT INCLUDED IN THIS LIST: Medications self-entered by the patient into personal health records (i.e. [employer]) are NOT included in this list. Non-VA medications documented outside this [place], remote inpatient orders (regardless of status) and [...] MORE THAN 6 TABLETS PER DAY. Rx# [id number] Last Released: 10/10/24 Qty/Days Supply: Rx Expiration Date: 01/17/25 Refills Remainin Indication: FOR PAIN OUTPT ALBUTEROL 90MCG (CFC-F) 200D ORAL INHL (Status = ) INHALE 2 PUFFS BY MOUTH FOUR TIMES A DAY NEEDED FOR BREATHING Rx# [id number] Last Released: 09/11/23 Qty/Days Supply: 04/25 Rx Expiration Date: 09/08/24 Refills Remainin OUTPT ALBUTEROL SO4 0.083% INHL 3ML (Status = ) INHALE 3 ML VIA NEBULIZER BY ORAL NEBULIZATION FOUR TIMES A DAY NEEDED Rx# [id number] Last Released: 07/25/23 Qty/Days Supply: 120 Rx Expiration Date: 07/21/24 Refills Remainin Indication: FOR SHORTNESS OF BREATH OUTPT ALUMINUM HYDROXIDE GEL 320MG/5ML SUSP (Status = Active) TAKE 15 ML BY MOUTH FOUR TIMES A DAY NEEDED FOR STOMACH ACID Rx# [id number] Last Released: 06/12/24 Qty/Days Supply: 05/11 Rx Expiration Date: 06/11/25 Refills Remainin OUTPT AMIODARONE HCL (PACERONE) 200MG TAB (Status = Discontinued) TAKE ONE TABLET BY MOUTH DAILY FOR HEART Rx# [id number] Last Released: 07/24/24 Qty/Days Supply: Rx Expiration Date: 09/08/24 Refills Remainin OUTPT AMIODARONE HCL (PACERONE) 200MG TAB (Status = Active/Suspended) TAKE ONE TABLET BY MOUTH DAILY FOR HEART Rx# [id number] Last Released: Supply: Rx Expiration Date: 09/06/25 Refills Remainin OUTPT ASPIRIN 81MG CHEW TAB (Status = Discontinued) CHEW ONE TABLET BY MOUTH EVERY DAY FOR BLOOD THINNER Rx# [id number] Last Released: 08/08/24 Qty/Days Supply: Rx Expiration Date: 09/08/24 Refills Remainin OUTPT ASPIRIN 81MG CHEW TAB (Status = Active/Suspended) CHEW ONE TABLET BY MOUTH EVERY DAY FOR BLOOD THINNER Rx# [id number] Last Released: Qt/Days Supply: Rx Expiration Date: 09/06/25 Refills Remainin Non-VA COENZYME Q10 CAP/TAB TAKE ONE CAPSULE BY MOUTH OUTPT DOCUSATE NA 100MG CAP (Status = Active) TAKE ONE CAPSULE BY MOUTH DAILY Rx# [id number] Last Released: 04/18/24 Qty/Days Supply: 100/90 Rx Expiration Date: 11/14/24 Refills Remainin Indication: FOR STOOL SOFTENER OUTPT DOXAZOSIN MESYLATE 4MG TAB (Status = Discontinued) TAKE ONE TABLET BY MOUTH AT BEDTIME FOR PROSTATE DOSE REDUCTION Rx# [id number] Last Released: 04/23/24 Qty/Days Supply: 90 Rx Expiration Date: 08/09/24 Refills Remainin Indication: FOR PROSTATE OUTPT DOXAZOSIN MESYLATE 4MG TAB (Status = Active) TAKE ONE TABLET BY MOUTH AT BEDTIME FOR PROSTATE DOSE REDUCTION Rx# [id number] Last Released: 09/06/24 Qty/Days Supply: 90 Rx Expiration Date: 09/06/25 Refills Remainin Indication: FOR PROSTATE OUTPT EZETIMIBE 10MG TAB (Status = Discontinued) TAKE ONE TABLET BY MOUTH EVERY DAY FOR LOWERING CHOLESTEROL Rx# [id number] Last Released: 03/18/24 Qty/Days Supply: Rx Expiration Date: 09/08/24 Refills Remainin OUTPT EZETIMIBE 10MG TAB (Status = Active) TAKE ONE TABLET BY MOUTH EVERY DAY FOR LOWERING CHOLESTEROL Rx# [id number] Last Released: 10/09/24 Qty/Days Supply: Rx Expiration Date: 10/09/25 Refills Remainin OUTPT FEXOFENADINE HCL 180MG TAB (Status = Active) TAKE ONE TABLET BY MOUTH DAILY FOR ALLERGIES Rx# [id number] Last Released: 09/03/24 Qty/Days Supply: Rx Expiration Date: 06/20/25 Refills Remainin Indication: FOR ALLERGIES OUTPT FLUTICASONE PROP 50MCG 120D NASAL INHL (Status = Active) INSTILL 2 SPRAYS IN EACH NOSTRIL DAILY FOR NASAL ALLERGIES Rx# [id number] Last Released: 10/01/24 Qty/Days Supply: 04/25 Rx Expiration Date: 06/20/25 Refills Remainin Indication: FOR NASAL ALLERGIES OUTPT FUROSEMIDE 40MG TAB (Status = ) TAKE ONE TABLET BY MOUTH DAILY FOR BLOOD PRESSURE/WATER PILL Rx# [id number] Last Released: 08/28/24 Qty/Days Supply: 90/90 Rx Expiration Date: 09/08/24 Refills Remainin OUTPT GABAPENTIN 600MG TAB (Status = Discontinued) TAKE ONE TABLET BY MOUTH TWICE A DAY FOR PAIN/NEUROPATHY Rx# [id number] Last Released: 06/06/24 Qty/Days Supply: 180/90 Rx Expiration Date: 07/21/24 Refills Remainin OUTPT GABAPENTIN 600MG TAB (Status = Active) TAKE ONE TABLET BY MOUTH TWICE A DAY FOR PAIN/NEUROPATHY Rx# [id number] Last Released: 09/06/24 Qty/Days Supply: 180/90 Rx Expiration Date: 09/06/25 Refills Remainin OUTPT LACTOBACILLUS ACIDOPHILUS CAP (Status = Active) TAKE 1 CAPSULE BY MOUTH DAILY FOR DIGESTION Rx# [id number] Last Released: 09/26/24 Qty/Days Supply: 100/90 Rx Expiration Date: 09/06/25 Refills Remainin Indication: FOR DIGESTION OUTPT LACTULOSE 10GM/15ML ORAL SOLN (Status = Active) TAKE 15 ML BY MOUTH TWICE A DAY FOR CONSTIPATION Rx# [id number] Last Released: 09/09/24 Qty/Days Supply: 480/30 Rx Expiration Date: 04/30/25 Refills Remainin Indication: FOR CONSTIPATION OUTPT LISINOPRIL 5MG TAB (Status = Discontinued) TAKE ONE TABLET BY MOUTH DAILY FOR BLOOD PRESSURE Rx# [id number] Last Released: 06/17/24 Qty/Days Supply: 90/90 Rx Expiration Date: 09/08/24 Refills Remainin OUTPT LISINOPRIL 5MG TAB (Status = Active) TAKE ONE TABLET BY MOUTH DAILY FOR BLOOD PRESSURE Rx# [id number] Last Released: 09/16/24 Qty/Days Supply: 90/90 Rx Expiration Date: 09/03/25 Refills Remainin OUTPT MAGNESIUM OXIDE 400MG TAB (Status = ) TAKE ONE TABLET BY MOUTH DAILY WITH FOOD Rx# [id number] Last Released: 08/06/24 Qty/Days Supply: 120/90 Rx Expiration Date: 09/08/24 Refills Remainin Indication: FOR MAGNESIUM REPLACEMENT OUTPT MENTHOL/M-SALICYLATE 10-15% TOP CREAM (Status = Active) APPLY SMALL AMOUNT TOPICALLY EVERY DAY NEEDED FOR SORE MUSCLES OR JOINTS Rx# [id number] Last Released: 07/04/24 Qty/Days Supply: Rx Expiration Date: 07/04/25 Refills Remainin Indication: FOR SORE MUSCLES OR JOINTS OUTPT METOPROLOL SUCCINATE 50MG SA TAB (Status = Discontinued) TAKE ONE TABLET BY MOUTH EVERY DAY Rx# [id number] Last Released: 07/31/24 Qty/Days Supply: Rx Expiration Date: 08/09/24 Refills Remainin OUTPT METOPROLOL SUCCINATE 50MG SA TAB (Status = Active/Suspended) TAKE ONE TABLET BY MOUTH EVERY DAY Rx# [id number] Last Released: Qt Supply: Rx Expiration Date: 09/06/25 Refills Remainin OUTPT MOMETASONE 200MCG/ACTUAT 120D ORAL INHL (Status = ) INHALE TWO PUFFS BY MOUTH TWICE A DAY RINSE MOUTH AFTER EACH USE Rx# [id number] Last Released: 06/04/24 Qty/Days Supply: 04/25 Rx Expiration Date: 09/08/24 Refills Remainin OUTPT MONTELUKAST NA 10MG TAB (Status = Discontinued) TAKE ONE TABLET BY MOUTH EVERY DAY Rx# [id number] Last Released: 05/27/24 Qty/Days Supply: Rx Expiration Date: 12/18/24 Refills Remainin OUTPT MONTELUKAST NA 10MG TAB (Status = Active) TAKE ONE TABLET BY MOUTH EVERY DAY Rx# [id number] Last Released: 09/06/24 Qty/Days Supply: Rx Expiration Date: 09/06/25 Refills Remainin OUTPT MULTIVITAMIN CAP/TAB (Status = ) TAKE 1 CAP/TAB BY MOUTH DAILY SUPPLEMENT Rx# [id number] Last Released: 08/28/24 Qty/Days Supply: Rx Expiration Date: 09/08/24 Refills Remainin OUTPT OLODATEROL/TIOTROP 2.5MCG/ACTUAT 60D INH (Status = Active) INHALE 2 PUFFS BY MOUTH EVERY DAY Rx# [id number] Last Released: 09/03/24 Qty/Days Supply: Rx Expiration Date: 06/18/25 Refills Remainin OUTPT OMEPRAZOLE 40MG EC CAP (Status = Discontinued) TAKE ONE CAPSULE BY MOUTH EVERY MORNING 30 MINUTES BEFORE BREAKFAST Rx# [id number] Last Released: 08/22/24 Qty/Days Supply: Rx Expiration Date: 03/08/25 Refills Remainin Indication: FOR STOMACH ACID OUTPT PRAVASTATIN NA 20MG TAB (Status = ) TAKE ONE-HALF TABLET BY MOUTH SUNDAYS, MONDAYS, WEDNESDAYS AND FRIDAYS FOR CHOLESTEROL. CALL YOUR PROVIDER IF YOU HAVE MUSCLE PAIN, TENDERNESS OR WEAKNESS Rx# [id number] Last Released: 03/22/24 Qty/Days Supply: Rx Expiration Date: 09/08/24 Refills Remainin Indication: FOR CHOLESTEROL OUTPT VITAMIN B COMPLEX CAP (Status = ) TAKE ONE CAPSULE BY MOUTH DAILY Rx# [id number] Last Released: 03/22/24 Qty/Days Supply: Rx Expiration Date: 09/08/24 Refills Remainin SUPPLIES OUTPT ACCU-CHEK GUIDE (GLUCOSE) TEST STRIP (Status = Active) USE ONE STRIP THREE TIMES WEEKLY FOR BLOOD GLUCOSE MONITORING (STORE IN ORIGINAL BOTTLE WITH LID ON AT ALL TIMES) Rx# [id number] Last Released: 04/18/24 Qty/Days Supply: 50 Rx Expiration Date: 03/08/25 Refills Remainin OUTPT ALCOHOL PREP PAD (Status = Active) USE PAD TO SUPPLY DIRECTED Rx# [id number] Last Released: 03/08/24 Qty/Days Supply: 200/30 Rx Expiration Date: 03/08/25 Refills Remainin Potential risks, benefits, and alternative to medications prescribed were discussed with /caregiver who was given an opportunity to ask questions, which were answered to the best of my ability and seemingly to their satisfaction. /caregiver was/were instructed to contact provider (means provided) with any concerns or questions. A list of reconciled medications was provided to the [place]/caregiver. Assess Statin Use - Lipids (CVD/DM): The patient is already on a statin. The patients prescription for a statin was reviewed and updated. Diabetic Care: The patient is already on a statin. The patients prescription for a statin was reviewed and updated. /loli/ Dre Contreras M.D. 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 An advance directive is a written statement regarding preferences about future health care decisions in the event that individual becomes unable to make those decisions. Notification of Rights Related to Advance Directives: Written notification provided. ADVANCE DIRECTIVE: Do you have an Advance Directive? YES Kill Buck's Advance Directive is available and a copy has been sent to Medical Records. The does not want to have the Advance Directive updated, rescinded, or reviewed. /loli/ ZACK HOOKER lpn Signed: 10/11/2024 08:26 ZACK HOOKER [facility]
--- OUTSIDE RECORDS SUMMARY | 2024-11-05 15:53 | XMS_ITS | Encounter Summary ---
Author Name [facility] [place] Address [address] [place] [address] Care Team Providers Care Supervisor Maintenance And Custodians Name Role Phone BEN DANNY Primary Care Provider Unavailabl e Selected Encounter This section includes the information on record at [place] for the Encounter. Date/Time Encounter Type Encounter Description Reason Provider Source Jul 03, 2024 11:00 AM ORTHOTIC MGMT&TRAING 1ST ENC PROSTHETICS/ORTHOT ICS ICD-10-CM E11.40 Type 2 diabetes mellitus with diabetic neuropathy, unsp BERTA SANTIAGO [facility] Encounter Template Text not used by [place] Assessments - Encounter Diagnoses This section includes the primary and secondary diagnoses documented for the Encounter. Date/Time Primary/Secondary Diagnosis Diagnosis Name Provider Source Jul 03, 2024 11:04 AM PRIMARY Type 2 diabetes mellitus with diabetic neuropathy, unsp BERTA SANTIAGO [facility] Plan of Treatment: Future Appointments [...] 16, 2024 10:15 AM AMBULATORY - NONE [facility] August 14, 2024 10:30 AM AMBULATORY - NONE [facility] August 22, 2024 08:30 AM AMBULATORY - NONE [facility] Aug 27, 2024 09:10 AM AMBULATORY - NONE [facility] Aug 27, 2024 01:00 PM [facility] Sep 05, 2024 09:30 AM AMBULATORY - MEDICINE [facility] Sep 09, 2024 10:30 AM AMBULATORY - NONE [facility] Sep 10, 2024 09:45 AM AMBULATORY - NONE [facility] Oct 02, 2024 11:00 AM AMBULATORY - NONE [facility] Oct 11, 2024 08:30 AM AMBULATORY - MEDICINE [facility] Oct 21, 2024 10:00 AM AMBULATORY - NONE [facility] Oct 23, 2024 10:00 AM AMBULATORY - SURGERY [facility] Oct 23, 2024 10:05 AM AMBULATORY - NONE [facility] Nov 06, 2024 08:30 AM AMBULATORY - NONE [facility] Nov 28, 2024 09:30 AM AMBULATORY - NONE [facility] Social History: Smoking Status (Most [...] took place. 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 HELPER NO [facility] Sep 08, 2023 10:30 AM VA-TOBACCO USE MED NO [facility] Sep 08, 2023 10:30 AM VA-TOBACCO USE [place] 30 MIN OF WAKEUP [facility] Sep 08, 2023 10:30 AM VA-TOBACCO USER EVERY DAY [facility] August 23, 2022 08:30 AM VA-TOBACCO USE 30 YEARS OR MORE [facility] August 23, 2022 08:30 AM VA-TOBACCO USE ADVICE [facility] August 23, 2022 08:30 AM VA-TOBACCO USE GRAVITY PROSPECTING OPERATOR HELPER NO [facility] August 23, 2022 08:30 AM VA-TOBACCO USE MED NO [facility] August 23, 2022 08:30 AM VA-TOBACCO USE [place] 30 MIN OF [facility] August 23, 2022 08:30 AM VA-TOBACCO USER EVERY DAY [facility] May 07, 2021 10:00 AM VA-TOBACCO USE 30 YEARS OR MORE [facility] May 07, 2021 10:00 AM VA-TOBACCO USE ADVICE [facility] May 07, 2021 10:00 AM VA-TOBACCO USE GRAVITY PROSPECTING 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 HELPER NO [facility] May 07, 2021 10:00 AM VA-TOBACCO USE MED NO [facility] May 07, 2021 10:00 AM VA-TOBACCO USE WI 30 MIN OF [facility] May 07, 2021 10:00 AM VA-TOBACCO USER EVERY DAY [facility] May 07, 2020 01:00 PM VA-TOBACCO USE 30 YEARS OR MORE [facility] May 07, 2020 01:00 PM VA-TOBACCO USE ADVICE [facility] May 07, 2020 01:00 PM VA-TOBACCO USE GRAVITY PROSPECTING OPERATOR HELPER NO [facility] May 07, 2020 01:00 PM VA-TOBACCO USE MED NO [facility] May 07, 2020 01:00 PM VA-TOBACCO USE WI 30 MIN OF [facility] May 07, 2020 01:00 PM VA-TOBACCO USER EVERY DAY [facility] Feb 13, 2019 11:11 AM VA-TOBACCO USE 30 YEARS OR MORE [facility] Feb 13, 2019 11:11 AM VA-TOBACCO USE ADVICE [facility] Feb 13, 2019 11:11 AM VA-TOBACCO USE GRAVITY PROSPECTING OPERATOR HELPER NO [facility] Feb 13, 2019 11:11 AM VA-TOBACCO USE MED NO [facility] Feb 13, 2019 11:11 AM VA-TOBACCO USE WI 30 MIN OF [facility] Feb 13, 2019 11:11 AM VA-TOBACCO USER EVERY DAY [facility] Sep 25, 2017 04:04 PM VA-TOBACCO USE 30 YEARS OR MORE [facility] Sep 25, 2017 04:04 PM VA-TOBACCO USE ADVICE [facility] Sep 25, 2017 04:04 PM VA-TOBACCO USE GRAVITY PROSPECTING OPERATOR HELPER NO [facility] Sep 25, 2017 04:04 PM VA-TOBACCO USE MED NO [facility] Sep 25, 2017 04:04 PM VA-TOBACCO USE [place] 30 MIN OF [facility] Sep 25, 2017 04:04 PM VA-TOBACCO USER [...] August 13, 2013 ADVANCE DIRECTIVE MARITA SANDERS [facility] Oct 13, 1998 ADVANCE DIRECTIVE Jessica YOST Louann [facility] Mar 14, 1994 ADVANCE DIRECTIVE YUMIKO HOLMAN Angel [facility] Encounter Notes: All associated encounter notes This section contains the clinical notes associated to the Encounter. Date/Time Encounter Note(s) Provider Source Jul 03, 2024 10:58 AM ORTHOTICS PROSTHET ICS CONSULT: LOCAL TITLE: CONSULT/ORTHOTIC LAB STANDARD TITLE: ORTHOTICS PROSTHETICS CONSULT DATE OF NOTE: JUL 03, 2024@10:58 ENTRY DATE: JUL 03, 2024@10:58:52 AUTHOR: WELLINGTON SANTIAGO COSIGNER: URGENCY: STATUS: COMPLETED ORA DEL TORO Aug Consult for: Diabetic Shoes & OTS Inserts [place] referred from: _x_ [facility] _CVT_Mahoney __Nguyen __ [facility] __Japour __Nachowicz __ [facility] __Beckett __Nachowicz __ [facility] __Miller __ Other Diagnosis:Type 2 Diabetes Mellitus with Diabetic Neuropathy, unspecified(ICD-10-CM E11.40) Diabetic Foot Exam Date:Apr 10, 2024 Diabetic Foot Exam Rating: _x_Moderate--Level 2 __High--Level 3 Date of Last Issued Shoes: Mar 2023 __Serviceable _x_Condemned threw them out Date of Previous Issued Shoes:Apr 2022 __Servicable _x_Condemned 's primary complaint is:All VA shoes/boots are worn out. POD states [place] needs boots for ankle support. Assessment/Treatment: presents wearing previously dispensed pair of shoes with OTS inserts from 2022. Shoes & inserts show significant signs of wear and break down. They are in need of replacement at this time. Will order 2 pair of footwear and 4 additional pairs of OTS inserts for to change as needed, every 3-4 months. The following measurement was taken: Mens 10.5 x-wide The following order will be placed with Prosthetics. __ Initial Shoe Order _x_ Repeat Shoe Order Order and send to [facility]: VENDOR-Anoericne (A5500) 1 pair FSS DM Shoes--[place] Worker black Size Mens 10.5 x-wide (A5510) 2 pair OTC Inserts--Size Mens 10.5 x-wide VENDOR-Delmar Royal (A5500) 1 pair FSS DM Shoes--6506 boot black Size Mens 10.5 x-wide (A5510) 2 pair OTC Inserts--Size Mens 10.5 x-wide _X_ FSS Contract Shoe __ Non Contract Shoe; meets patient's medical requirements __ Contracted Orthotic Device __ Off Contract Orthotic Device; meets patient's medical requirements will be scheduled for fitting once orthotic devices arrive. Delivery/Scheduling Location: __[place] __Jamul __[facility] __[facility] __[place] _x_[place] face to face Education: [place] was instructed on proper wear and care of orthotic devices. [place] instructed to follow-up as needed and to contact the clinic with any questions or concerns regarding orthotic devices. /loli/ WELLINGTON SANTIAGO Windsurfing Instructor Signed: 07/03/2024 11:04 WELLINGTON SANTIAGO [facility]
[2024-11-05 15:54] LABS: Alanine Aminotransferase 19 U/L (6-50); Albumin Level 4.2 g/dL (3.5-5.1); Alkaline Phosphatase 51 U/L (38-126); Anion Gap 5 mmol/L (4-12); Aspartate Amino Transferase 20 U/L (17-59); Bilirubin,Total 0.4 mg/dL (0.2-1.3); Blood Urea Nitrogen 27 mg/dL (9-20); Calcium 9.2 mg/dL (8.4-10.2); Carbon Dioxide 30 mmol/L (22-30); Chloride 104 mmol/L (98-107); Estimated CRCL calculation 54 ml/min; Estimated Glomerular Filt Rate 52; Glucose 112 mg/dL (65-110); Osmolality Calculated 294 mOsm/kg (285-295); Potassium 3.8 mmol/L (3.4-5.0); Sodium 139 mmol/L (137-145); Total Protein 6.9 g/dL (6.3-8.2)
--- OUTSIDE RECORDS SUMMARY | 2024-11-05 15:54 | XMS_ITS | Encounter Summary ---
Author Name [facility] [place] [place] [facility] [place] Organization [place] Address [address] [place] [address] Care Team Providers Care Coordinator Integrated Marketing Name Role Phone DRE CONTRERAS Primary Care Provider Unavailabl e Selected Encounter This section includes the information on record at [place] for the Encounter. Date/Time Encounter Type Encounter Description Reason Pro vider Source Jan 16, 2024 11:29 AM Outpatient Encounter ADMIN PAT ACTIVTIES (JYOTINONCT) IHE Encounter Template Text not used by [place] Plan of Treatment: Future Appointments (+ 6 months) and Future Tests (+/- 45 days) The Plan of Treatment section includes future care activities for the patient from all [place] treatmentfacilities. This section includes future appointments and future orders which are active, pending or scheduled. Future Appointments This section includes appointments that were scheduled to occur 6 months from the date of the Encounter, up to a maximum of 20 appointments. The data comes from all [place] treatment facilities. Appointment Date/Time Appointment Type Appointme nt Facility Name Jan 17, 2024 02:30 PM AMBULATORY - MEDICINE [facility] Jan 22, 2024 09:00 AM AMBULATORY - NONE [facility] Jan 23, 2024 09:30 AM AMBULATORY - NONE [facility] Jan 31, 2024 08:00 AM AMBULATORY - NONE [facility] Feb 16, 2024 01:00 PM AMBULATORY - NONE [facility] Feb 19, 2024 02:15 AM AMBULATORY - NONE [facility] Feb 29, 2024 09:50 AM AMBULATORY - NONE [facility] Mar 07, 2024 10:00 AM AMBULATORY - MEDICINE [facility] Apr 10, 2024 11:30 AM AMBULATORY - SURGERY [facility] Apr 10, 2024 11:35 AM AMBULATORY - NONE [facility] Jun 17, 2024 10:00 AM AMBULATORY - NONE [facility] Jun 19, 2024 01:30 PM AMBULATORY - MEDICINE [facility] Jul 03, 2024 09:30 AM AMBULATORY - SURGERY [facility] Jul 03, 2024 09:35 AM AMBULATORY - NONE [facility] Jul 03, 2024 11:00 AM AMBULATORY - NONE [facility] Jul 16, 2024 10:15 AM AMBULATORY - NONE [facility] Advance Directives: All historical and current Section Date Range: From patient's date of to the date document was created. This section includes ALL of a patient's completed or amended [place] Advance and Rescinded Directives. The entries below indicate that a directive exists for the patient, but an actual copy is not included with this document. The data comes from all [place] facilities. Date Advance Directives Provider Source August 13, 2013 ADVANCE DIRECTIVE MARITA SANDERS [facility] Oct 13, 1998 ADVANCE DIRECTIVE Jessica YOST [facility] Mar 14, 1994 ADVANCE DIRECTIVE YUMIKO HOLMAN [facility] Encounter Notes: All associated encounter notes This section contains the clinical notes associated to the Encounter. Date/Time Encounter Note(s) Provider Source Jan 16, 2024 11:29 AM PHYSICIAN NOTE: LOCAL TITLE: PROVIDER/MEDICATION RECONCILIATION STANDARD TITLE: PHYSICIAN NOTE DATE OF NOTE: JAN 16, 2024@11:29:59 ENTRY DATE: JAN 16, 2024@11:30 AUTHOR: DRE CONTRERAS EXP COSIGNER: URGENCY: STATUS: COMPLETED [facility] [address] [place], [place] [address] ORA DEL TORO JAN 16, 2024 [address], [place] [address] Patient: ORA DEL TORO (: 1955) A list of reconciled medications was provided to the [facility]/caregiver. The following medication list was reviewed with the patient/caregiver: The [facility]/caregiver was counseled on new medications and/or medication changes. Potential risks, benefits, and alternative to medications prescribed were discussed with /caregiver who was given an opportunity to ask questions, which were answered to the best of my ability and seemingly to their satisfaction. [facility]/caregiver was/were instructed to contact provider (means provided) with any concerns or questions. INCLUDED IN THIS LIST: Alphabetical list of active outpatient prescriptions dispensed from this [place] (local) and dispensed from another VA or [...] the patient into personal health records (i.e. [facility]) are not included in this list. Non-VA medications documented outside this [place], remote inpatient orders (regardless of status) and remote clinic medications are NOT included in this list. The patient and provider must always discuss medications the patient is taking, regardless of where the medication was dispensed or obtained. Patient safety alert: Medications and allergies from [facility] facilities may be incomplete. Reference [facility] for full list. Allergies/ADRs LocalAllergies:ATORVASTATIN(MU SCLEPAIN),CILOSTAZOL(HYPOTENSI ON), FERROUSSULFATE(ABDOMINALPAIN), ROSUVASTATIN(INCREASEDSERUMALT (SGPT)), SIMVASTATIN,SPIRONOLACTONE(WHEEL ALIGNMENT MECHANIC ECOMASTIA) RemoteAllergies:FERROUSSULFATE (INDIGESTION),ROSUVASTATIN(KYLE ERENZYMES ABNORMAL),SIMVASTATIN(MUSCLEPA IN) Med [...] OIL 1000MG (500MG DHA/EPA) CAP,ORAL (NON-VA Remote: [facility] Status: ACTIVE) 1000mg by mouth once a day Usually Taken for: Cholesterol FUROSEMIDE 40MG TAB (OUTPT Status: ACTIVE) Take one tablet by mouth dailyfor blood pressure/water pill Usually Taken for: Blood pressure/Water pill GABAPENTIN 600MG TAB (OUTPT Status: ACTIVE) Take one tablet by mouth twice a day for pain/neuropathy Usually Taken for: Pain/Neuropathy LIDOCAINE 5% PATCH (OUTPT Status: ACTIVE) Pie4jcdxnilokxexpnwbayg,hairle ssareaoncedailyasneededpresspa tch xtergtwuirrudx03-77enxqviciorf atactivatetheadhesive. remove patch(es) after 12 hours and [...] Taken for: Supplement VITAMIN B COMPLEX CAP,ORAL (NON-[facility]: [facility] Status: ACTIVE) 1 capsule by mouth [...] 0.4MG SL TB (OUTPT Status: ) Dissolveonetabletunderthetongu rvpqhb9ojtmxhqpnkcdbzyzxjkzmmg pain.ifnoimprovementafterthree dosesgotonearest emergency room. discard opened bottle [...] 2.5MCG/ACTUAT 60D INH (OUTPT Status = Discontinued) Ykevph1pqxquwxvyspyrbsstuyphsy rtusingafterfinishingthetreleg y samplesperprovider Usually Taken for: Breathing SUPPLIES: ACCU-CHEK GUIDE (GLUCOSE) TEST STRIP (OUTPT) Use one strip three times weekly for blood glucose monitoring (store in original bottle with lid on at all times) ALCOHOL PREP PAD (OUTPT) Use pad to supply as directed /loli/ Dre Contreras M.D. M.D. Date printed: JAN 16, 2024 11:33 [facility] DRE CONTRERAS [facility]
--- OUTSIDE RECORDS SUMMARY | 2024-11-05 15:54 | XMS_ITS | Encounter Summary ---
Author Name [facility] [place] Organization [place] Address [address] [place] [address] Care Team Providers Care Pressure Vessel Inspector Name Role Phone BEN DANNY Primary Care [...] AM PRIMARY Other specified counseling ABDOUL GAY [facility] Plan of Treatment: Future Appointments (+ 6 months) and Future Tests (+/- 45 days) The Plan of Treatment section includes future care activities for the patient from all [place] treatmentfacilities. This section includes future appointments and [...] 2024 10:00 AM AMBULATORY - NONE [facility] Jun 19, 2024 01:30 PM AMBULATORY - [facility]ICINE [facility] Jul 03, 2024 09:30 AM AMBULATORY - SURGERY [facility] Jul 03, 2024 09:35 AM AMBULATORY - NONE [facility] Jul 03, 2024 11:00 AM AMBULATORY - NONE [facility] Jul 16, 2024 10:15 AM AMBULATORY - NONE [facility] August 14, 2024 10:30 AM AMBULATORY - NONE [facility] August 22, 2024 08:30 AM AMBULATORY - NONE [facility] Aug 27, 2024 09:10 AM AMBULATORY - NONE [facility] Aug 27, 2024 01:00 PM AMBULATORY - REHAB MEDICIN E [facility] Sep 05, 2024 09:30 AM AMBULATORY - [facility]IC[facility] Sep 09, 2024 10:30 [facility] Sep 10, 2024 09:45 AM AMBULATORY - NONE [facility] Oct 02, 2024 11:00 AM AMBULATORY - NONE [facility] Social History: Smoking Status (Most current) [...] took place. 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 [facility] Sep 08, 2023 10:30 AM VA-TOBACCO USE MED NO [facility] Sep 08, 2023 10:30 AM VA-TOBACCO USE [place] 30 MIN OF WAKEUP [facility] Sep 08, 2023 10:30 AM VA-TOBACCO USER EVERY DAY [facility] August 23, 2022 08:30 AM VA-TOBACCO USE 30 YEARS OR MORE [facility] August 23, 2022 08:30 AM VA-TOBACCO USE ADVICE [facility] August 23, 2022 08:30 AM VA-TOBACCO USE KEYMODULE ASSEMBLY 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 May 07, 2021 10:00 AM VA-TOBACCO USE MED [facility] May 07, 2021 10:00 AM VA-TOBACCO USE [place] 30 MIN OF [facility] May 07, 2021 10:00 AM VA-TOBACCO USER EVERY DAY [facility] May 07, 2020 01:00 PM VA-TOBACCO USE 30 YEARS OR MORE [facility] May 07, 2020 01:00 PM VA-TOBACCO USE ADVICE [facility] May 07, 2020 01:00 PM VA-TOBACCO USE KEYMODULE ASSEMBLY SUPERVISOR NO [facility] May 07, 2020 01:00 PM VA-TOBACCO USE MED [facility] May 07, 2020 01:00 PM VA-TOBACCO USE [place] 30 MIN OF [facility] May 07, 2020 01:00 PM VA-TOBACCO USER EVERY DAY [facility] Feb 13, 2019 11:11 AM VA-TOBACCO USE 30 YEARS OR MORE [facility] Feb 13, 2019 11:11 AM VA-TOBACCO USE ADVICE [facility] Feb 13, 2019 11:11 AM VA-TOBACCO USE KEYMODULE ASSEMBLY SUPERVISOR NO [facility] Feb 13, 2019 11:11 AM VA-TOBACCO USE MED NO [facility] Feb 13, 2019 11:11 AM VA-TOBACCO USE [place] 30 MIN OF [facility] Feb 13, 2019 11:11 AM VA-TOBACCO USER EVERY DAY [facility] Sep 25, 2017 04:04 PM VA-TOBACCO USE 30 YEARS OR MORE [facility] Sep 25, 2017 04:04 PM VA-TOBACCO USE ADVICE [facility] Sep 25, 2017 04:04 PM VA-TOBACCO USE KEYMODULE ASSEMBLY SUPERVISOR NO [facility] Sep 25, 2017 04:04 PM VA-TOBACCO USE MED NO [facility] Sep 25, 2017 04:04 PM VA-TOBACCO USE [place] 30 MIN OF WAKEUP [facility] Sep 25, 2017 04:04 [...] 06:35 AM TOBACCO OFFERRED STOP SMOKING CLINIC [facility] Advance Directives: All historical [...] August 13, 2013 ADVANCE DIRECTIVE MARITA SANDERS [facility] Oct 13, 1998 ADVANCE DIRECTIVE Jessica YOST Louann [facility] Mar 14, 1994 ADVANCE DIRECTIVE YUMIKO HOLMAN Angel [facility] Encounter Notes: All associated encounter notes [...] MORE PATIENT IDENTIFIERS REQUIRED FULL NAME Date [place] has given verbal consent for this encounter to be done through clinical video Telehealth with [facility] [place]. Please refer to Provider note for details of this encounter. next scheduled 07/03/24 at 0930 . Will inform the It Systems Analyst /loli/ LIN GAY LPN Signed: 04/10/2024 11:51 Receipt Acknowledged By: 04/10/2024 14:16 /loli/ CHAPARRO WREN CERTIFIED FLEX ENDOSCOPE REPROCESSOR 04/10/2024 13:16 /loli/ LIN JAIMES [facility]
--- OUTSIDE RECORDS SUMMARY | 2024-11-05 15:54 | XMS_ITS | Continuity of Care Document ---
Author Name [facility] Organization [facility] Care Team Providers Care Consulting Solution Manager Name Role Phone [facility] Unavailable Unavailable Problems Combined list of problems from Department of Defense and Veterans Affairs facilities. It does not include entries that were removed or entered in error. Problem Status Onset Date Problem Type Date of Resolution Comments Source Ventricular tachycardia Active 018 Condition August 10, 2018 Entered By: NARINDER DAVIS Comment: slow [place]-Dr Yonathan Mercado [facility] cardiology [facility] PVD-peripheral vascular disease Active 018 Condition August 10, 2018 Entered By: NARINDER DAVIS Comment: PVD with claudication-Delmar Luu CVOct 2020 Entered By: DANNY CONTRERAS Comment: s/p right common iliac arter with stent; s/p right external iliac intrvascular lothotripsy on 12/21/20 [facility] Ischemic dilated cardiomyopathy due to coronary artery disease Active 016 Condition Sep 22, 2015 Entered By: FUAD COLES Comment: Evaluated by Cardiology 09/03/15Ju2016 Entered By: FUAD COLES Comment: 10/12/16 ECHO: Ischemic cardiomyopathy , significant hypokinesis of the distal [facility] Cardiovascular Disease Active 994 Condition Nov 06, 1995 Entered By: BLANCA ADAIR Comment: recurrant subendo mi 7-96Jun 1996 Entered By: BLANCA ADAIR Comment: first mi 94Jun 1996 Entered By: BLANCA ADAIR Comment: recurrant angina [facility] SUBENDO INFARCT, INITIAL Inactive 994 Condition [facility] [place] Abdominal aortic aneurysm Active Condition August 18, 2021 Entered By: DANNY CONTRERAS Comment: 3 cm by CTA 08/15; followed by cardioogy [facility] Acute eczema Active Condition [facility] H CS Allergic rhinitis Active Condition [facility] Allergic Rhinitis Active Condition [facility] Anemia, FE Defic Active Condition [facility] Angina Pectoris * (ICD-9-CM 413.9) Active Condition [facility] Benign prostatic hyperplasia Active Condition [facility] Benign prostatic hyperplasia Active Condition [facility] CAD - Coronary artery disease Active Condition [facility] S Cardiac pacemaker in situ Active Condition [facility] Cervicalgia Active Condition [facility] S Chronic back pain Active Condition [facility] Chronic gingivitis, Non-plaque Induced (ICD-9-CM 523.11) Active Condition [facility] Chronic kidney disease Active Condition [facility] Chronic obstructive lung disease Active Condition [facility] Congestive heart failure Active Condition Apr 08, 2021 Entered By: DANNY CONTRERAS Comment: nuclear stress test EF 24% 04/07/21 [facility] Congestive Heart Failure Active Condition [facility] Constipation Active Condition [facility] CS COPD Active Condition [facility] Coronary Artery Disease Active Condition [facility] Cramp in lower leg Active Condition [facility] Degeneration of intervertebral disc (ICD-9-CM 722.6) Active Condition [facility] Diabetes Mellitus Type 2 ([facility] [id number]) Active Condition Nov 05, 2020 Entered By: DANNY CONTRERAS Comment: HbA1c 6.6% on 10/30/20 [facility] DM Type II Active Condition [facility] Dysthymia (or Depressive neurosis) Active Condition [facility] Elevated Liver Function Tests (ICD-9-CM 794.8) Active Condition [facility] Essential hypertension Active Condition [facility] Exposure to Potentially Hazardous Substance ([facility] [id number]) Active Condition [facility] Family HX GI Malignancy Active Condition Jan 21, 2008 Entered By: DANIELLE JACOBS Comment: Sister w/ CRC [facility] Gastroesophageal Reflux Active Condition [facility] Gastroesophageal reflux disease Active Condition [facility] S Hernia of anterior abdominal wall Active Condition [facility] S Hernia, Ventral (ICD-9-CM 553.20) Active Condition [facility] Hyperlipidemia Active Condition [facility] Hyperlipidemia Active Condition [facility] HYPERTENSION NOS Active Condition [facility] Iron deficiency anemia Active Condition [facility] Neuropathy (SNOMED CT 471963791) Active Condition [facility] Nicotine dependence Active Condition [facility] Obesity (SCT 391889496) Active Condition [facility] Osteoarthritis Active Condition [facility] Osteoarthritis * (ICD-9-CM 715.90) Active Condition [facility] Panic Disorder * (ICD-9-CM 300.01) Active Condition [facility] Peripheral nerve disease Active Condition [facility] Polyp Colon (SCT 66567261) Active Condition Dec 28, 2020 Entered By: DANNY CONTRERAS Comment: colonscopy 12/18/20: polyps found; f/up in 3 years [facility] Prolonged posttraumatic stress disorder Active Condition [facility] PVD * (ICD-9-CM 443.9) Active Condition [facility] Sebaceous cyst of skin Active Condition [facility] Tinnitus Active Condition [facility] Tobacco Dependence Active Condition [facility] Trigger finger Active Condition [facility] Unspecified personality disorder Active Condition [facility] Vitamin D deficiency Active Condition [facility] Abnormal renal function Inactive Condition 05/01/2020 [facility] Acute nontraumatic kidney injury Inactive Condition 11/06/2020 Oct 03, 2018 Entered By: NARINDER DAVIS Comment: per note Dr Fuentes, nephrology [facility] Angina pectoris Inactive Condition 05/01/2020 [facility] Caffeine dependence Inactive Condition 05/01/2020 [facility] Diabetes mellitus type II Inactive Condition 05/01/2020 [facility] Epidermal inclusion cyst Inactive Condition 05/01/2020 [facility] Full consent for immunization Inactive Condition 05/01/2020 [facility] High sodium diet Inactive Condition 05/01/2020 [facility] Hyperthyroidism Inactive Condition 03/07/2024 [facility] Hypothyroidism (SCT 47941905) Inactive Condition 04/14/2021 [facility] Impaired Fasting Glucose (SCT 349341215) Inactive Condition 11/05/2020 [facility] Long-term current use of anticoagulant Inactive Condition 05/01/2020 [facility] Neck pain Inactive Condition 05/01/2020 [facility] REFLUX ESOPHAGITIS Inactive Condition [facility] Right upper quadrant pain Inactive Condition 05/01/2020 [facility] Diagnosis: ICD-10-CM E11.40 Type 2 diabetes mellitus with diabetic neuropathy, unsp Active Diagnosis [facility] Diagnosis: ICD-10-CM Z71.89 Other specified counseling Active Diagnosis [facility] Diagnosis: ICD-10-CM L72.3 Sebaceous cyst Active Diagnosis [facility] Diagnosis: ICD-10-CM Z76.0 Encounter for issue of repeat prescription Active Diagnosis [facility] Diagnosis: ICD-10-CM G99.0 Autonomic neuropathy in diseases classified elsewhere Active Diagnosis [facility] Diagnosis: ICD-10-CM I25.9 Chronic ischemic heart disease, unspecified Active Diagnosis [facility] Diagnosis: ICD-10-CM Z65.9 Problem related to unspecified psychosocial circumstances Active Diagnosis [facility] Diagnosis: ICD-10-CM N39.0 Urinary tract infection, site not specified Active Diagnosis [facility] Diagnosis: ICD-10-CM L02.214 Cutaneous abscess of groin Active Diagnosis [facility] Diagnosis: ICD-10-CM L05.01 Pilonidal cyst with abscess Active Diagnosis [facility] Diagnosis: ICD-10-CM M65.331 Trigger finger, right middle finger Active Diagnosis [facility] Diagnosis: ICD-10-CM L98.9 Disorder of the skin and subcutaneous tissue, unspecified Active Diagnosis [facility] Diagnosis: ICD-10-CM Z46.89 Encounter for fitting and adjustment of oth devices Active Diagnosis [facility] Diagnosis: ICD-10-CM I89.0 Lymphedema, not elsewhere classified Active Diagnosis [facility] Medications Combined list of outpatient medications from [...] 6 TABLETS PER DAY. ORAL ACTIVE 01/17/2025 [id number] LE CONTRERAS 2023 200 [facility] ACETAMINOPH EN 500MG TAB TAKE TWO TABLETS BY MOUTH TWICE A DAY FOR PAIN OR FEVER - DO NOT EXCEED 4000MG OF ACETAMIN OPHEN (APAP) PER DAY FROM ANY AND ALL SOURCES ORAL DISCONT INUED (EDIT) 09/08/2024 [id number] 4 LE CONTRERAS 2023 100 [facility] ALBUTEROL 90MCG/ACTUA T (CFC-F) INHL,ORAL,8 .5GM DOSE COUNTER INHALE 2 PUFFS BY MOUTH FOUR TIMES A DAY NEEDED FOR BREATHIN G RESPIR ATORY (INHAL ATION) 09/08/2024 [id number] 4 LE CONTRERAS 2023 1 [facility] ALUMINUM HYDROXIDE 320MG/5ML SUSP TAKE 15 ML BY MOUTH FOUR TIMES A DAY NEEDED FOR STOMACH ACID ORAL ACTIVE 06/11/2025 [id number] 5 LE CONTRERAS 2024 2 [facility] ALUMINUM HYDROXIDE 320MG/5ML SUSP TAKE 15 ML BY MOUTH FOUR TIMES A DAY NEEDED FOR STOMACH ACID ORAL DISCONT INUED 07/21/2024 [id number] 5 LE CONTRERAS 2023 2 [facility] AMIODARONE HCL (PACERONE) 200MG TAB TAKE ONE TABLET BY MOUTH DAILY FOR HEART ORAL ACTIVE 09/06/2025 [id number] 5 LE CONTRERAS 2024 90 [facility] AMIODARONE HCL (PACERONE) 200MG TAB TAKE ONE TABLET BY MOUTH DAILY FOR HEART ORAL DISCONT INUED 09/08/2024 [id number] 5 LE CONTRERAS 2023 90 [facility] AMIODARONE HCL (PACERONE) 200MG TAB TAKE ONE TABLET BY MOUTH DAILY FOR HEART ORAL DISCONT INUED 10/19/2023 [id number] 4 LE CONTRERAS 2023 90 [facility] AMOXICILLIN TRIHYDRATE 875MG/CLAVU LANATE K 125MG TAB TAKE 1 TABLET BY MOUTH TWICE A DAY FOR 14 DAYS WITH FOOD ORAL DISCONT INUED 02/21/2024 [id number] KAY FU K 2023 28 [facility] ASPIRIN 81MG TAB,CHEWABL E CHEW ONE TABLET BY MOUTH EVERY DAY FOR BLOOD THINNER ORAL ACTIVE 09/06/2025 [id number] 5 LE CONTRERAS 2024 90 [facility] ASPIRIN 81MG TAB,CHEWABL E CHEW ONE TABLET BY MOUTH EVERY DAY FOR BLOOD THINNER ORAL DISCONT INUED 09/08/2024 [id number] 5 LE CONTRERAS 2023 90 [facility] ASPIRIN 81MG TAB,CHEWABL E CHEW ONE TABLET BY MOUTH EVERY DAY FOR BLOOD THINNER ORAL DISCONT INUED 10/19/2023 [id number] LE CONTRERAS 2023 90 [facility] COENZYME Q10 CAP/TAB TAKE ONE CAPSULE BY MOUTH ORAL ACTIVE SUSHANT DAVIS 2017 [facility] DOCUSATE NA 100MG CAP TAKE ONE CAPSULE BY MOUTH DAILY ORAL ACTIVE 11/14/2024 [id number] 5 LE CONTRERAS 2023 100 [facility] DOCUSATE NA 100MG CAP TAKE ONE CAPSULE BY MOUTH DAILY ORAL DISCONT INUED 02/21/2024 [id number] LE CONTRERAS 2022 100 [facility] DOXAZOSIN MESYLATE 4MG TAB TAKE ONE TABLET BY MOUTH AT BEDTIME FOR PROSTATE DOSE REDUCTIO N ORAL ACTIVE 09/06/2025 [id number] 5 LE CONTRERAS 2024 90 [facility] DOXAZOSIN MESYLATE 4MG TAB TAKE ONE TABLET BY MOUTH AT BEDTIME FOR PROSTATE DOSE REDUCTIO N ORAL DISCONT INUED 08/09/2024 [id number] SHARITA MERCADO 2023 90 [facility] EZETIMIBE 10MG TAB TAKE ONE TABLET BY MOUTH EVERY DAY FOR LOWERING CHOLESTE ROL ORAL ACTIVE 10/09/2025 [id number] 5 [facility] 90 [facility] EZETIMIBE 10MG TAB TAKE ONE TABLET BY MOUTH EVERY DAY FOR LOWERING CHOLESTE ROL ORAL DISCONT INUED 09/08/2024 [id number] [facility] 2023 90 [facility] EZETIMIBE 10MG TAB TAKE ONE TABLET BY MOUTH EVERY DAY FOR LOWERING CHOLESTE ROL ORAL DISCONT INUED 10/19/2023 [id number] 4 [facility] 2023 90 [facility] FEXOFENADIN E HCL 180MG TAB TAKE ONE TABLET BY MOUTH DAILY FOR ALLERGIE S ORAL ACTIVE 06/20/2025 [id number] [facility] 2024 90 [facility] FISH OIL 1000MG (500MG DHA/EPA) CAP,ORAL TAKE 1 CAPSULE BY MOUTH ONCE A DAY ORAL ACTIVE MAHAD LOMAX C 2012 [facility] FLUTICASONE PROPIONATE 50MCG/SPRAY SOLN,NASAL, 16GM INSTILL 2 SPRAYS IN EACH NOSTRIL DAILY FOR NASAL ALLERGIE S NASAL ACTIVE 06/20/2025 [id number] BENMD LUIS ALBERTO BRITANY 2024 1 [facility] FUROSEMIDE 40MG TAB TAKE ONE-HALF TABLET BY MOUTH EVERY DAY ORAL SUSPEND ED 01/19/2025 [id number] SHARITA MERCADO 2024 45 [facility] FUROSEMIDE 40MG TAB TAKE ONE TABLET BY MOUTH DAILY FOR BLOOD PRESSURE /WATER PILL ORAL DISCONT INUED 10/19/2023 [id number] 4 [facility] 2023 90 [facility] FUROSEMIDE 40MG TAB TAKE ONE TABLET BY MOUTH DAILY FOR BLOOD PRESSURE /WATER PILL ORAL 09/08/2024 [id number] 5 LE CONTRERAS 2023 90 [facility] GABAPENTIN 600MG TAB TAKE ONE TABLET BY MOUTH TWICE A DAY FOR PAIN/NAUN ROPATHY ORAL ACTIVE 09/06/2025 [id number] 5 LE CONTRERAS 2024 180 [facility] GABAPENTIN 600MG TAB TAKE ONE TABLET BY MOUTH TWICE A DAY FOR PAIN/NAUN ROPATHY ORAL DISCONT INUED 07/21/2024 [id number] 5 LE CONTRERAS 2023 180 [facility] LACTOBACILL US ACIDOPHILUS CAP TAKE 1 CAPSULE BY MOUTH DAILY FOR DIGESTIO N ORAL ACTIVE 09/06/2025 [id number] 5 LE CONTRERAS 2024 100 [facility] LACTULOSE 10GM/15ML SOLN,ORAL TAKE 15 ML BY MOUTH TWICE A DAY FOR CONSTIPA TION ORAL ACTIVE 04/30/2025 [id number] LE CONTRERAS 2024 480 [facility] LISINOPRIL 5MG TAB TAKE ONE-HALF TABLET BY MOUTH EVERY DAY ORAL SUSPEND ED 10/22/2025 [id number] SHARITA MERCADO 2024 45 [facility] LISINOPRIL 5MG TAB TAKE ONE TABLET BY MOUTH DAILY FOR BLOOD PRESSURE ORAL DISCONT INUED 09/03/2025 [id number] 5 LE CONTRERAS 2024 90 [facility] LISINOPRIL 5MG TAB TAKE ONE TABLET BY MOUTH DAILY FOR BLOOD PRESSURE ORAL DISCONT INUED 09/08/2024 [id number] 5 LE CONTRERAS 2023 90 [facility] MAGNESIUM OXIDE 400MG TAB TAKE ONE TABLET BY MOUTH DAILY WITH FOOD ORAL DISCONT INUED 10/19/2023 [id number] 4 LE CONTRERAS 2023 120 [facility] MAGNESIUM OXIDE 400MG TAB TAKE ONE TABLET BY MOUTH DAILY WITH FOOD ORAL 09/08/2024 [id number] 5 LE CONTRERAS 2023 120 [facility] MENTHOL/MET HYL SALICYLATE (10-15%) LOW CONC. CREAM,TOP APPLY SMALL AMOUNT TOPICALL Y EVERY DAY NEEDED FOR SORE MUSCLES OR JOINTS TOPICA L ACTIVE 07/04/2025 [id number] Allen COONEY Allen [address] [facility] MENTHOL/MET HYL SALICYLATE (10-15%) LOW CONC. CREAM,TOP APPLY SMALL AMOUNT TOPICALL Y NEEDED TOPICA L DISCONT INUED 03/08/2025 [id number] LE CONTRERAS 2023 90 [facility] METOPROLOL SUCCINATE 200MG TAB,SA TAKE ONE-HALF TABLET BY MOUTH EVERY DAY FOR HEART/BL OOD PRESSURE ORAL DISCONT INUED BY GIRISH Tanner 09/08/2024 [id number] 4 LE CONTRERAS 2023 45 [facility] METOPROLOL SUCCINATE 50MG TAB,SA TAKE ONE TABLET BY MOUTH EVERY DAY ORAL ACTIVE 09/06/2025 [id number] 5 LE CONTRERAS 2024 90 [facility] METOPROLOL SUCCINATE 50MG TAB,SA TAKE ONE TABLET BY MOUTH EVERY DAY ORAL DISCONT INUED 08/09/2024 [id number] SHARITA MERCADO 2023 90 [facility] MOMETASONE FUROATE 200MCG/ACTU AT INHL,ORAL,1 20D,13GM INHALE TWO PUFFS BY MOUTH TWICE A DAY RINSE MOUTH AFTER EACH USE RESPIR ATORY (INHAL ATION) 09/08/2024 [id number] 5 LE CONTRERAS 2023 1 [facility] MONTELUKAST NA 10MG TAB TAKE ONE TABLET BY MOUTH EVERY DAY ORAL ACTIVE 09/06/2025 [id number] 5 LE CONTRERAS 2024 90 [facility] MONTELUKAST NA 10MG TAB TAKE ONE TABLET BY MOUTH EVERY DAY ORAL DISCONT INUED 12/18/2024 [id number] ,E GIOVANNY 2023 90 [facility] MONTELUKAST NA 10MG TAB TAKE ONE TABLET BY MOUTH AT BEDTIME ORAL DISCONT INUED 02/12/2024 [id number] 4 LE CONTRERAS 2023 90 [facility] MONTELUKAST NA 10MG TAB TAKE ONE TABLET BY MOUTH AT BEDTIME ORAL DISCONT INUED 07/21/2024 [id number] WERNER,E GIOVANNY 2023 30 [facility] MONTELUKAST NA 10MG TAB TAKE ONE TABLET BY MOUTH AT BEDTIME TO PREVENT TROUBLE BREATHIN G ORAL DISCONT INUED 07/21/2024 [id number] 4 LE CONTRERAS 2023 90 [facility] MULTIVITAMI NS CAP/TAB TAKE 1 CAP/TAB BY MOUTH DAILY SUPPLEME NT ORAL 09/08/2024 [id number] 5 LE CONTRERAS 2023 100 [facility] NITROGLYCER IN 0.4MG TAB,SUBLING UAL DISSOLVE ONE TABLET UNDER THE TONGUE EVERY 5 MINUTES NEEDED FOR CHEST PAIN. IF NO IMPROVEM ENT AFTER THREE DOSES GO TO NEAREST EMERGENC Y ROOM. DISCARD OPENED BOTTLE AFTER 6 MONTHS SUBLIN GUAL 09/27/2023 [id number] LE CONTRERAS 2022 100 [facility] OLODATEROL 2.5MCG/TIOT ROPIUM 2.5MCG/ACTU AT INHL,ORAL,6 0D,4GM INHALE 2 PUFFS BY MOUTH EVERY DAY RESPIR ATORY (INHAL ATION) ACTIVE 06/18/2025 [id number] ,E GIOVANNY 2024 3 [facility] OLODATEROL 2.5MCG/TIOT ROPIUM 2.5MCG/ACTU AT INHL,ORAL,6 0D,4GM INHALE 2 PUFFS BY MOUTH EVERY DAY RESPIR ATORY (INHAL ATION) DISCONT INUED 12/18/2024 [id number] Manjinder WERNER 2023 3 [facility] OLODATEROL 2.5MCG/TIOT ROPIUM 2.5MCG/ACTU AT INHL,ORAL,6 0D,4GM INHALE 2 PUFFS BY MOUTH EVERY DAY START USING AFTER FINISHIN G THE TRELEGY SAMPLES PER PROVIDER RESPIR ATORY (INHAL ATION) DISCONT INUED 02/21/2024 [id number] 4 LE CONTRERAS 2023 3 [facility] OMEPRAZOLE 40MG CAP,EC TAKE ONE CAPSULE BY MOUTH EVERY MORNING 30 MINUTES BEFORE BREAKFAS T ORAL DISCONT INUED BY PROVIDE R 03/08/2025 [id number] 5 LE CONTRERAS 2023 90 [facility] PRAVASTATIN NA 20MG TAB TAKE ONE-HALF TABLET BY MOUTH SUNDAYS, MONDAYS, AND FRIDAYS FOR CHOLESTE ROL. CALL YOUR PROVIDER IF YOU HAVE MUSCLE PAIN, TENDERNE SS OR WEAKNESS ORAL 09/08/2024 [id number] 5 LE CONTRERAS 2023 45 [facility] VITAMIN B COMPLEX CAP TAKE ONE CAPSULE BY MOUTH DAILY ORAL 09/08/2024 [id number] 5 LE CONTRERAS 2023 100 [facility] VITAMIN B COMPLEX CAP TAKE 1 CAPSULE BY MOUTH QAM ORAL ACTIVE MAHAD LOMAX 2011 [facility] Allergies, Adverse Reactions, Alerts Combined list of allergies from Department of Defense and [facility] Affairs facilities. It does not include entries that were removed or entered in error. Substance Category Reaction Severity Reaction type Status Date Reported Comments Source ATORVASTATIN Propensity to adverse reactions to drug (finding) Muscle pain active 0 [facility] CILOSTAZOL Propensity to adverse reactions to drug (finding) Low blood pressure active 1 [facility] FERROUS SULFATE Propensity to adverse reactions to drug (finding) Indigestion active 2 [facility] FERROUS SULFATE Propensity to adverse reactions to drug (finding) Abdominal pain active 6 [facility] ROSUVASTATIN Propensity to adverse reactions to drug (finding) Liver enzymes abnormal MILD active 9 [facility] ROSUVASTATIN Propensity to adverse reactions to drug (finding) ALT (SGPT) level raised MILD active 6 [facility] SIMVASTATIN Propensity to adverse reactions to drug (finding) Muscle pain MILD active 9 [facility] SIMVASTATIN Propensity to adverse reactions to drug (finding) active 6 [facility] SPIRONOLACTO NE Propensity to adverse reactions to drug (finding) Gynecomasti a active 0 [facility] Immunizations Combined list of available immunizations from the Department of Defense and Veterans Affairs facilities. Immunization Series Date Given Administered By Site Reaction Lot Number CVX Code Drug Betting Agency Manager Status Comments Source INFLUENZA, INJECTABLE, QUADRIVALENT, PRESERVATIVE FREE 2018 150 complet ed [facility] PNEUMOCOCCAL CONJUGATE PCV 13 2 2018 133 complet ed HISTORICA L INFORMATI ON - FROM OTHER REGISTRY, [facility] TDAP 2018 115 complet ed [facility] INFLUENZA, SEASONAL, INJECTABLE, PRESERVATIVE FREE 2017 140 complet ed [facility] INFLUENZA, SEASONAL, INJECTABLE, PRESERVATIVE FREE 2016 140 complet ed Left Deltoid 0.5ml IM [facility] PNEUMOCOCCAL POLYSACCHARID E PPV23 1 2016 33 complet ed HISTORICA L INFORMATI ON - FROM OTHER REGISTRY, [facility] INFLUENZA, SEASONAL, INJECTABLE, PRESERVATIVE FREE 2015 140 complet ed Left Deltoid 0.5ml IM [facility] INFLUENZA, SEASONAL, INJECTABLE, PRESERVATIVE FREE 2014 140 complet ed [facility] INFLUENZA, UNSPECIFIED FORMULATION 2013 88 complet ed [facility] INFLUENZA, UNSPECIFIED FORMULATION 2012 88 complet ed [facility] INFLUENZA, UNSPECIFIED FORMULATION 2011 88 complet ed [facility] INFLUENZA, UNSPECIFIED FORMULATION 2010 88 complet ed [facility] INFLUENZA, UNSPECIFIED FORMULATION [address] [facility] NOVEL INFLUENZA-H1N 1-09, ALL FORMULATIONS 2009 128 complet ed [employer] [facility] INFLUENZA, UNSPECIFIED FORMULATION 2008 88 complet ed [facility] TDAP 2008 115 complet ed Right Deltoid [facility] TDAP 2008 115 complet ed noted in web [facility]CS INFLUENZA, UNSPECIFIED FORMULATION 2007 88 complet ed [facility] INFLUENZA, UNSPECIFIED FORMULATION 2006 88 complet ed [facility] INFLUENZA, UNSPECIFIED FORMULATION 2005 BENJA CASSIDY 88 comple t ed [facility] INFLUENZA, UNSPECIFIED FORMULATION 2004 88 complet ed [facility] INFLUENZA (HISTORICAL) 2003 88 complet ed [facility] PNEUMOCOCCAL, UNSPECIFIED FORMULATION 2002 109 complet ed [facility] INFLUENZA (HISTORICAL) 2002 88 complet ed [facility] INFLUENZA, UNSPECIFIED FORMULATION 2001 88 complet ed [facility] INFLUENZA, UNSPECIFIED FORMULATION 2000 88 complet ed [facility] INFLUENZA (HISTORICAL) 1999 88 complet ed [facility] INFLUENZA (HISTORICAL) 1997 TIFFANY CUENCA 88 comple t ed [facility] INFLUENZA (HISTORICAL) 1996 BLANCA ADAIR 88 complet ed [facility] INFLUENZA (HISTORICAL) 1995 DERICK FINLEY 88 complet ed [facility] PNEUMOCOCCAL, UNSPECIFIED FORMULATION 1993 MACARIO JONES 109 complet ed [facility] Results Combined list of recent [...] Mar 07, 2024 10:28 AM Reporting Lab: [place] [id number] Performing Lab: [place] [id number] [facility] CBC W/DIFF LEUKOCYTES [#/VOLUME] IN BLOOD BY AUTOMATED COUNT 7.6 10*3/u L 4.0 - 11.0 08/27 Specimen Type: BLOOD No comment entered. Ordering Provider: WILY CONTRERAS Report Released Date/Time: Mar 07, 2024 10:28 AM Reporting Lab: [address] [id number] Performing Lab: [address] [id number] [facility] CBC W/DIFF ERYTHROCYTE S [#/VOLUME] IN BLOOD BY AUTOMATED COUNT 4.27 10*6/u L 4.20 - 5.70 08/27 Specimen Type: BLOOD No comment entered. Ordering Provider: WILY CONTRERAS Report Released Date/Time: Mar 07, 2024 10:28 AM Reporting Lab: [address] [address] Performing Lab: [place] [phone] [facility] CBC W/DIFF HEMOGLOBIN [MASS/VOLUM E] IN BLOOD 12.3 g/dL 13.0 - 17.0 08/27 L Specimen Type: BLOOD No comment entered. Ordering Provider: WILY CONTRERAS Report Released Date/Time: Mar 07, 2024 10:28 AM Reporting Lab: [address] [address] Performing Lab: [address] [address] [facility] CBC W/DIFF HEMATOCRIT [VOLUME FRACTION] OF BLOOD BY AUTOMATED COUNT 38.5 40.0 - 51.0 08/27 L Specimen Type: BLOOD No comment entered. Ordering Provider: WILY CONTRERAS Report Released Date/Time: Mar 07, 2024 10:28 AM Reporting Lab: [address] [address] Performing Lab: [address] [address] [facility] CBC W/DIFF MCV [ENTITIC VOLUME] BY AUTOMATED COUNT 90.2 fL 82.0 - 99.0 08/27 Specimen Type: BLOOD No comment entered. Ordering Provider: WILY CONTRERAS Report Released Date/Time: Mar 07, 2024 10:28 AM Reporting Lab: [address] [address] Performing Lab: [address] [address] [facility] CBC W/DIFF MCHC [MASS/VOLUM E] BY AUTOMATED COUNT 28.8 pg 27.0 - 34.0 08/27 Specimen Type: BLOOD No comment entered. Ordering Provider: WILY CONTRERAS Report Released Date/Time: Mar 07, 2024 10:28 AM Reporting Lab: [address] [address] Performing Lab: [address] [address] [facility] CBC W/DIFF MCHC [MASS/VOLUM E] BY AUTOMATED COUNT 31.9 g/dL 31.0 - 37.0 08/27 Specimen Type: BLOOD No comment entered. Ordering Provider: WILY CONTRERAS Report Released Date/Time: Mar 07, 2024 10:28 AM Reporting Lab: [address] [address] Performing Lab: [facility] [address] [facility] [address] [facility] CBC W/DIFF PLATELET MEAN VOLUME [ENTITIC VOLUME] IN BLOOD BY AUTOMATED COUNT 9.1 fL 8.0 - 12.0 08/27 Specimen Type: BLOOD No comment entered. Ordering Provider: WLIY CONTRERAS Report Released Date/Time: Mar 07, 2024 10:28 AM Reporting Lab: [facility] [address] [place] [phone] Performing Lab: [address] [address] [facility] CBC W/DIFF PLATELETS [#/VOLUME] IN BLOOD BY AUTOMATED COUNT 403 10*3/u L 130 - 400 08/27 H Specimen Type: BLOOD No comment entered. Ordering Provider: WILY CONTRERAS Report Released Date/Time: Mar 07, 2024 10:28 AM Reporting Lab: [address] [address] Performing Lab: [address] [address] [facility] CBC W/DIFF ERYTHROCYTE DISTRIBUTIO N WIDTH [RATIO] BY AUTOMATED COUNT 15.5 < 15.0 - 15.0 08/27 H Specimen Type: BLOOD No comment entered. Ordering Provider: WILY CONTRERAS Report Released Date/Time: Mar 07, 2024 10:28 AM Reporting Lab: [address] [address] Performing Lab: [address] [address] [facility] CBC W/DIFF NEUTROPHILS /100 LEUKOCYTES IN BLOOD BY AUTOMATED COUNT 67.2 08/27 Specimen Type: BLOOD No comment entered. Ordering Provider: WILY CONTRERAS Report Released Date/Time: Mar 07, 2024 10:28 AM Reporting Lab: [address] [address] Performing Lab: [address] [address] [facility] CBC W/DIFF LYMPHOCYTES /100 LEUKOCYTES IN BLOOD BY AUTOMATED COUNT 22.1 08/27 Specimen Type: BLOOD No comment entered. Ordering Provider: WILY CONTRERAS Report Released Date/Time: Mar 07, 2024 10:28 AM Reporting Lab: [facility] [address] [facility] [address] Performing Lab: [facility] [address] [place] [address] [facility] CBC W/DIFF MONOCYTES/1 00 LEUKOCYTES IN BLOOD BY AUTOMATED COUNT 5.5 08/27 Specimen Type: BLOOD No comment entered. Ordering Provider: WILY CONTRERAS Report Released Date/Time: Mar 07, 2024 10:28 AM Reporting Lab: [address] [address] Performing Lab: [address] [address] [facility] CBC W/DIFF EOSINOPHILS /100 LEUKOCYTES IN BLOOD BY AUTOMATED COUNT 3.7 08/27 Specimen Type: BLOOD No comment entered. Ordering Provider: WILY CONTRERAS Report Released Date/Time: Mar 07, 2024 10:28 AM Reporting Lab: [address] [address] Performing Lab: [address] [address] [facility] CBC W/DIFF BASOPHILS/1 00 LEUKOCYTES IN BLOOD BY AUTOMATED COUNT 0.8 08/27 Specimen Type: BLOOD No comment entered. Ordering Provider: WILY CONTRERAS Report Released Date/Time: Mar 07, 2024 10:28 AM Reporting Lab: [address] [address] Performing Lab: [address] [address] [facility] CBC W/DIFF IMMATURE GRANULOCYTE S/100 LEUKOCYTES IN BLOOD 0.7 08/27 Specimen Type: BLOOD No comment entered. Ordering Provider: WILY CONTRERAS Report Released Date/Time: Mar 07, 2024 10:28 AM Reporting Lab: [address] [address] Performing Lab: [address] [address] [facility] CBC W/DIFF NEUTROPHILS [#/VOLUME] IN BLOOD BY AUTOMATED COUNT 5.1 10*3/u L 1.5 - 8.0 08/27 Specimen Type: BLOOD No comment entered. Ordering Provider: WILY CONTRERAS Report Released Date/Time: Mar 07, 2024 10:28 AM Reporting Lab: [address] [address] Performing Lab: [address] [address] [facility] CBC W/DIFF LYMPHOCYTES [#/VOLUME] IN BLOOD BY AUTOMATED COUNT 1.7 10*3/u L 1.0 - 4.0 08/27 Specimen Type: BLOOD No comment entered. Ordering Provider: WILY CONTRERAS Report Released Date/Time: Mar 07, 2024 10:28 AM Reporting Lab: [address] [address] Performing Lab: [address] [address] [facility] CBC W/DIFF MONOCYTES [#/VOLUME] IN BLOOD BY AUTOMATED COUNT 0.4 10*3/u L 0.2 - 1.0 08/27 Specimen Type: BLOOD No comment entered. Ordering Provider: WILY CONTRERAS Report Released Date/Time: Mar 07, 2024 10:28 AM Reporting Lab: [address] [address] Performing Lab: [address] [address] [facility] CBC W/DIFF EOSINOPHILS [#/VOLUME] IN BLOOD BY AUTOMATED COUNT 0.3 10*3/u L 0.0 - 0.4 08/27 Specimen Type: BLOOD No comment entered. Ordering Provider: WILY CONTRERAS Report Released Date/Time: Mar 07, 2024 10:28 AM Reporting Lab: [address] [address] Performing Lab: [address] [address] [facility] CBC W/DIFF BASOPHILS [#/VOLUME] IN BLOOD BY AUTOMATED COUNT 0.1 10*3/u L 0.0 - 0.2 08/27 Specimen Type: BLOOD No comment entered. Ordering Provider: WILY CONTRERAS Report Released Date/Time: Mar 07, 2024 10:28 AM Reporting Lab: [address] [place] [address] Performing Lab: [facility] [address] [facility] [address] [facility] CBC W/DIFF IMMATURE GRANULOCYTE S/100 LEUKOCYTES IN BLOOD 0.1 10*3/u L 0.0 - 0.5 08/27 Specimen Type: BLOOD No comment entered. Ordering Provider: WILY CONTRERAS Report Released Date/Time: Mar 07, 2024 10:28 AM Reporting Lab: [facility] [address] [place] [phone] Performing Lab: [facility] [address] [facility] [address] [facility] CBC W/DIFF NUCLEATED ERYTHROCYTE S/100 ERYTHROCYTE S IN BLOOD 0.0 /100{W BCs} 0.0 - 0.2 08/27 Specimen Type: BLOOD No comment entered. Ordering Provider: IWLY CONTRERAS Report Released Date/Time: Mar 07, 2024 10:28 AM Reporting Lab: [facility] [address] [place] [phone] Performing Lab: [facility] [address] [place] [address] [facility] CBC W/DIFF NUCLEATED ERYTHROCYTE S [#/VOLUME] IN BLOOD <0.011 0*3/uL 0.00 - 0.01 08/27 Specimen Type: BLOOD No comment entered. Ordering Provider: WILY CONTRERAS Report Released Date/Time: Mar 07, 2024 10:28 AM Reporting Lab: [facility] [address] [place] [phone] Performing Lab: [facility] [address] [facility] [address] [facility] COMPREHEN SIVE PNL ANION GAP IN SERUM OR PLASMA 6 mmol/L 5 - 15 08/27 Specimen Type: PLASMA Comment: eGFR was calculated using the CKD-EPI Creatinine (2020) equation. Ordering Provider: WILY CONTRERAS Report Released Date/Time: Mar 07, 2024 10:28 AM Reporting Lab: [facility] [address] [facility] [address] Performing Lab: [facility] [address] [facility] [address] [facility] COMPREHEN SIVE PNL GLOMERULAR FILTRATION RATE/1.73 SQ M.PREDICTED [VOLUME RATE/AREA] IN SERUM, PLASMA OR BLOOD BY CREATININE- BASED FORMULA (CKD-EPI 2020) 54 mL/min /{1.73 _m2} 60 08/27 L Specimen Type: PLASMA Comment: eGFR was calculated using the CKD-EPI Creatinine (2020) equation. Ordering Provider: WILY CONTRERAS Report Released Date/Time: Mar 07, 2024 10:28 AM Reporting Lab: [address] [address] Performing Lab: [address] [address] [facility] COMPREHEN SIVE PNL GLUCOSE [MASS/VOLUM E] IN SERUM OR PLASMA 113 mg/dL 70 - 99 08/27 H Specimen Type: PLASMA Comment: eGFR was calculated using the CKD-EPI Creatinine (2020) equation. Ordering Provider: WILY CONTRERAS Report Released Date/Time: Mar 07, 2024 10:28 AM Reporting Lab: [address] [address] Performing Lab: [address] [address] [facility] COMPREHEN SIVE PNL POTASSIUM [MOLES/VOLU ME] IN SERUM OR PLASMA 4.6 mmol/L 3.5 - 4.7 08/27 Specimen Type: PLASMA Comment: eGFR was calculated using the CKD-EPI Creatinine (2020) equation. Ordering Provider: WILY CONTRERAS Report Released Date/Time: Mar 07, 2024 10:28 AM Reporting Lab: [address] [address] Performing Lab: [address] [address] [facility] COMPREHEN SIVE PNL SODIUM [MOLES/VOLU ME] IN SERUM OR PLASMA 138 mmol/L 136 - 145 08/27 Specimen Type: PLASMA Comment: eGFR was calculated using the CKD-EPI Creatinine (2020) equation. Ordering Provider: WILY CONTRERAS Report Released Date/Time: Mar 07, 2024 10:28 AM Reporting Lab: [address] [address] Performing Lab: [address] [address] [facility] COMPREHEN SIVE PNL BILIRUBIN.T OTAL [MASS/VOLUM E] IN SERUM OR PLASMA 0.4 mg/dL 0.2 - 1.2 08/27 Specimen Type: PLASMA Comment: eGFR was calculated using the CKD-EPI Creatinine (2020) equation. Ordering Provider: WILY CONTRERAS Report Released Date/Time: Mar 07, 2024 10:28 AM Reporting Lab: [place] [phone] Performing Lab: [place] [phone] [facility] COMPREHEN SIVE PNL PROTEIN [MASS/VOLUM E] IN SERUM OR PLASMA 7.9 g/dL 5.7 - 8.2 08/27 Specimen Type: PLASMA Comment: eGFR was calculated using the CKD-EPI Creatinine (2020) equation. Ordering Provider: WILY CONTRERAS Report Released Date/Time: Mar 07, 2024 10:28 AM Reporting Lab: [place] [phone] Performing Lab: [address] [address] [facility] COMPREHEN SIVE PNL ALBUMIN [MASS/VOLUM E] IN SERUM OR PLASMA 4.8 g/dL 3.4 - 5.0 08/27 Specimen Type: PLASMA Comment: eGFR was calculated using the CKD-EPI Creatinine (2020) equation. Ordering Provider: WILY CONTRERAS Report Released Date/Time: Mar 07, 2024 10:28 AM Reporting Lab: [place] [phone] Performing Lab: [address] [address] [facility] COMPREHEN SIVE PNL ALKALINE PHOSPHATASE [ENZYMATIC ACTIVITY/VO LUME] IN SERUM OR PLASMA 42 U/L 45 - 117 08/27 L Specimen Type: PLASMA Comment: eGFR was calculated using the CKD-EPI Creatinine (2020) equation. Ordering Provider: WILY CONTRERAS Report Released Date/Time: Mar 07, 2024 10:28 AM Reporting Lab: [place] [phone] Performing Lab: [facility] [address] [facility] [address] [facility] COMPREHEN SIVE PNL ALANINE AMINOTRANSF ERASE [ENZYMATIC ACTIVITY/VO LUME] IN SERUM OR PLASMA 25 U/L 10 - 65 08/27 Specimen Type: PLASMA Comment: eGFR was calculated using the CKD-EPI Creatinine (2020) equation. Ordering Provider: WILY CONTRERAS Report Released Date/Time: Mar 07, 2024 10:28 AM Reporting Lab: [address] [phone] Performing Lab: [address] [address] [facility] COMPREHEN SIVE PNL ASPARTATE AMINOTRANSF ERASE [ENZYMATIC ACTIVITY/VO LUME] IN SERUM OR PLASMA 23 U/L 10 - 37 08/27 Specimen Type: PLASMA Comment: eGFR was calculated using the CKD-EPI Creatinine (2020) equation. Ordering Provider: WILY CONTRERAS Report Released Date/Time: Mar 07, 2024 10:28 AM Reporting Lab: [address] [address] Performing Lab: [address] [address] [facility] COMPREHEN SIVE PNL UREA NITROGEN [MASS/VOLUM E] IN SERUM OR PLASMA 31 mg/dL 7 - 21 08/27 H Specimen Type: PLASMA Comment: eGFR was calculated using the CKD-EPI Creatinine (2020) equation. Ordering Provider: WILY CONTRERAS Report Released Date/Time: Mar 07, 2024 10:28 AM Reporting Lab: [address] [address] Performing Lab: [address] [address] [facility] COMPREHEN SIVE PNL CALCIUM, TOTAL 10.1 mg/dL 8.7 - 10.4 08/27 Specimen Type: PLASMA Comment: eGFR was calculated using the CKD-EPI Creatinine (2020) equation. Ordering Provider: WILY CONTRERAS Report Released Date/Time: Mar 07, 2024 10:28 AM Reporting Lab: [address] [address] Performing Lab: [address] [address] [facility] COMPREHEN SIVE PNL CARBON DIOXIDE, TOTAL [MOLES/VOLU ME] IN SERUM OR PLASMA 25 mmol/L 21 - 32 08/27 Specimen Type: PLASMA Comment: eGFR was calculated using the CKD-EPI Creatinine (2020) equation. Ordering Provider: WILY CONTRERAS Report Released Date/Time: Mar 07, 2024 10:28 AM Reporting Lab: [address] [address] Performing Lab: [address] [address] [facility] COMPREHEN SIVE PNL CHLORIDE [MOLES/VOLU ME] IN SERUM OR PLASMA 107 mmol/L 98 - 109 08/27 Specimen Type: PLASMA Comment: eGFR was calculated using the CKD-EPI Creatinine (2020) equation. Ordering Provider: WILY CONTRERAS Report Released Date/Time: Mar 07, 2024 10:28 AM Reporting Lab: [address] [address] Performing Lab: [address] [address] [facility] COMPREHEN SIVE PNL CREATININE [MASS/VOLUM E] IN SERUM OR PLASMA 1.40 mg/dL 0.73 - 1.18 08/27 H Specimen Type: PLASMA Comment: eGFR was calculated using the CKD-EPI Creatinine (2020) equation. Ordering Provider: WILY CONTRERAS Report Released Date/Time: Mar 07, 2024 10:28 AM Reporting Lab: [address] [address] Performing Lab: [address] [address] [facility] FERRITIN (CONTRERAS) FERRITIN [MASS/VOLUM E] IN SERUM OR PLASMA 27.9 ng/mL 26.0 - 388.0 08/27 Specimen Type: SERUM Comment: Methotrexat e and Leucovorin (folinic acid) interfere with the measurement of folate. Patients receiving these drugs should not be tested for folate by this method. Ordering Provider: WILY CONTRERAS Report Released Date/Time: May 24, 2024 09:08 AM Reporting Lab: [facility] [address] [facility] [address] Performing Lab: [facility] [address] [facility] [address] [facility] FOLATE (CONTRERAS) FOLATE [MASS/VOLUM E] IN SERUM OR PLASMA >48.00 ng/mL 5.39 - 48.00 08/27 Specimen Type: SERUM Comment: Methotrexat e and Leucovorin (folinic acid) interfere with the measurement of folate. Patients receiving these drugs should not be tested for folate by this method. Ordering Provider: WILY CONTRERAS Report Released Date/Time: May 03, 2024 12:41 PM Reporting Lab: [facility] [address] [facility] [address] Performing Lab: [facility] [address] [facility] [address] [facility] IRON PANEL IRON [MASS/VOLUM E] IN SERUM OR PLASMA 69 ug/dL 65 - 175 08/27 Specimen Type: SERUM Comment: TIBC may be inaccurate if patient is on iron dextran in the last 14 days. Ordering Provider: WILY CONTRERAS Report Released Date/Time: Mar 07, 2024 10:32 AM Reporting Lab: [address] [address] Performing Lab: [address] [address] [facility] IRON PANEL IRON BINDING CAPACITY [MASS/VOLUM E] IN SERUM OR PLASMA 395 ug/dL 250 - 450 08/27 Specimen Type: SERUM Comment: TIBC may be inaccurate if patient is on iron dextran in the last 14 days. Ordering Provider: WILY CONTRERAS Report Released Date/Time: Mar 07, 2024 10:32 AM Reporting Lab: [address] [address] Performing Lab: [address] [address] [facility] IRON PANEL IRON SATURATION [MASS FRACTION] IN SERUM OR PLASMA 17 10 - 50 08/27 Specimen Type: SERUM Comment: TIBC may be inaccurate if patient is on iron dextran in the last 14 days. Ordering Provider: WILY CONTRERAS Report Released Date/Time: Mar 07, 2024 10:32 AM Reporting Lab: [facility] [address] [facility] [address] Performing Lab: [facility] [address] [facility] [address] [facility] VITAMIN B12 (THURMAN) COBALAMIN (VITAMIN B12) [MASS/VOLUM E] IN SERUM OR PLASMA 728 pg/mL 193 - 986 08/27 Specimen Type: SERUM Comment: Methotrexat e and Leucovorin (folinic acid) interfere with the measurement of folate. Patients receiving these drugs should not be tested for folate by this method. Ordering Provider: WILY CONTRERAS Report Released Date/Time: Jun 28, 2024 07:56 AM Reporting Lab: [facility] [address] [facility] [address] Performing Lab: [facility] [address] [facility] [address] [facility] A1C % HEMOGLOBIN A1C/HEMOGLO BIN.TOTAL IN BLOOD [...] Sep 08, 2023 10:52 AM Reporting Lab: [address] [address] Performing Lab: [address] [address] [facility] COMPREHEN SIVE PNL ANION GAP IN SERUM OR PLASMA 5 mmol/L 5 - 02/28 Specimen Type: PLASMA Comment: Low-risk levels [...] Sep 08, 2023 10:52 AM Reporting Lab: [address] [address] Performing Lab: [address] [address] [facility] COMPREHEN SIVE PNL GLOMERULAR FILTRATION RATE/1.73 SQ M.PREDICTED [VOLUME RATE/AREA] IN SERUM, PLASMA OR BLOOD BY CREATININE- BASED FORMULA (CKD-EPI 2020) 64 mL/min /{1.73 _m2} 60 02/28 Specimen Type: PLASMA Comment: Low-risk levels [...] Sep 08, 2023 10:52 AM Reporting Lab: [address] [address] Performing Lab: [address] [address] [facility] COMPREHEN SIVE PNL GLUCOSE [MASS/VOLUM E] IN SERUM OR PLASMA 99 mg/dL 70 - 99 02/28 Specimen Type: PLASMA Comment: Low-risk levels [...] Sep 08, 2023 10:52 AM Reporting Lab: [address] [address] Performing Lab: [address] [address] [facility] COMPREHEN SIVE PNL POTASSIUM [MOLES/VOLU ME] IN SERUM OR PLASMA 4.3 mmol/L 3.5 - 4.7 02/28 Specimen Type: PLASMA Comment: Low-risk levels [...] Sep 08, 2023 10:52 AM Reporting Lab: [address] [address] Performing Lab: [address] [address] [facility] COMPREH SIVE PNL SODIUM [MOLES/VOLU ME] IN SERUM OR PLASMA 138 mmol/L 136 - 145 02/28 Specimen Type: PLASMA Comment: Low-risk levels [...] Sep 08, 2023 10:52 AM Reporting Lab: [address] [address] Performing Lab: [address] [address] [facility] COMPREHEN SIVE PNL BILIRUBIN.T OTAL [MASS/VOLUM E] IN SERUM OR PLASMA 0.2 mg/dL 0.2 - 1.2 02/28 Specimen Type: PLASMA Comment: Low-risk levels [...] Sep 08, 2023 10:52 AM Reporting Lab: [address] [address] Performing Lab: [address] [address] [facility] COMPREHEN SIVE PNL PROTEIN [MASS/VOLUM E] IN SERUM OR PLASMA 7.1 g/dL 5.7 - 8.2 02/28 Specimen Type: PLASMA Comment: Low-risk levels [...] Sep 08, 2023 10:52 AM Reporting Lab: [address] [address] Performing Lab: [address] [address] [facility] COMPREHEN SIVE PNL ALBUMIN [MASS/VOLUM E] IN SERUM OR PLASMA 4.4 g/dL 3.4 - 5.0 02/28 Specimen Type: PLASMA Comment: Low-risk levels [...] Sep 08, 2023 10:52 AM Reporting Lab: [address] [address] Performing Lab: [address] [address] [facility] COMPREHEN SIVE PNL ALKALINE PHOSPHATASE [ENZYMATIC ACTIVITY/VO LUME] IN SERUM OR PLASMA 47 U/L 45 - 117 02/28 Specimen Type: PLASMA Comment: Low-risk levels [...] Sep 08, 2023 10:52 AM Reporting Lab: [address] [address] Performing Lab: [address] [address] [facility] COMPREHEN SIVE PNL ALANINE AMINOTRANSF ERASE [ENZYMATIC ACTIVITY/VO LUME] IN SERUM OR PLASMA 16 U/L 02/28 Specimen Type: PLASMA Comment: Low-risk levels [...] Sep 08, 2023 10:52 AM Reporting Lab: [address] [address] Performing Lab: [address] [address] [facility] COMPREH SIVE PNL ASPARTATE AMINOTRANSF ERASE [ENZYMATIC ACTIVITY/VO LUME] IN SERUM OR PLASMA 13 U/L - 02/28 Specimen Type: PLASMA Comment: Low-risk levels [...] Sep 08, 2023 10:52 AM Reporting Lab: [address] [address] Performing Lab: [address] [address] [facility] COMPREHEN SIVE PNL UREA NITROGEN [MASS/VOLUM E] IN SERUM OR PLASMA 23 mg/dL 7 - 02/28 H Specimen Type: PLASMA Comment: Low-risk [...] Sep 08, 2023 10:52 AM Reporting Lab: [address] [address] Performing Lab: [address] [address] [facility] COMPREH SIVE PNL CALCIUM, TOTAL 9.7 mg/dL 8.7 - 10.4 02/28 Specimen Type: PLASMA Comment: Low-risk levels [...] Sep 08, 2023 10:52 AM Reporting Lab: [address] [address] Performing Lab: [address] [address] [facility] COMPREHEN SIVE PNL CARBON DIOXIDE, TOTAL [MOLES/VOLU ME] IN SERUM OR PLASMA 27 mmol/L 21 - 32 02/28 Specimen Type: PLASMA Comment: Low-risk levels [...] Sep 08, 2023 10:52 AM Reporting Lab: [address] [address] Performing Lab: [address] [address] [facility] COMPREH SIVE PNL CHLORIDE [MOLES/VOLU ME] IN SERUM OR PLASMA 106 mmol/L 98 - 109 02/28 Specimen Type: PLASMA Comment: Low-risk levels [...] Sep 08, 2023 10:52 AM Reporting Lab: [address] [address] Performing Lab: [address] [address] [facility] COMPREHEN SIVE PNL CREATININE [MASS/VOLUM E] IN URINE 1.22 mg/dL 0.73 - 1.18 02/28 H Specimen Type: PLASMA Comment: Low-risk [...] Sep 08, 2023 10:52 AM Reporting Lab: [address] [address] Performing Lab: [address] [address] [facility] LIPID PNL CHOLESTEROL IN HDL [MASS/VOLUM E] [...] Sep 08, 2023 10:52 AM Reporting Lab: [address] [address] Performing Lab: [place] [id number] [facility] LIPID PNL TRIGLYCERID E [MASS/VOLUM E] IN [...] Sep 08, 2023 10:52 AM Reporting Lab: [address] [address] Performing Lab: [address] [address] [facility] LIPID PNL CHOLESTEROL IN LDL [MASS/VOLUM E] [...] Sep 08, 2023 10:52 AM Reporting Lab: [address] [address] Performing Lab: [address] [address] [facility] LIPID PNL CHOLESTEROL [MASS/VOLUM E] IN SERUM [...] Sep 08, 2023 10:52 AM Reporting Lab: [address] [address] Performing Lab: [address] [address] [facility] LIPID PNL CHOLESTEROL IN LDL [MASS/VOLUM E] [...] Sep 08, 2023 10:52 AM Reporting Lab: [facility] [address] [facility] [address] Performing Lab: [facility] [address] [facility] [address] [facility] Vital Signs Combined list of inpatient and outpatient Vital Signs from Department of Defense and Veterans Affairs, ranging from 12 months to all on record, depending upon the facility. Vital Sign Value Date Comments Source SYSTOLIC BLOOD PRESSURE 131 10/11/2024 08:21:42 [facility] DIASTOLIC BLOOD PRESSURE 76 10/11/2024 08:21:42 [facility] PULSE OXIMETRY 95 % 10/11/2024 08:21:42 [facility] WEIGHT 233.9 10/11/2024 08:21:42 [facility] BMI 36 kg/m2 10/11/2024 08:21:42 [facility] PAIN 3 10/11/2024 08:21:42 [facility] TEMPERATURE 97.5 10/11/2024 08:21:42 [facility] PULSE 68 10/11/2024 08:21:42 [facility] RESPIRATION 18 10/11/2024 08:21:42 [facility] SYSTOLIC BLOOD PRESSURE 131 09/05/2024 09:17:31 [facility] DIASTOLIC BLOOD PRESSURE 72 09/05/2024 09:17:31 [facility] PULSE OXIMETRY 94 % 09/05/2024 09:17:31 [facility] WEIGHT 238.6 09/05/2024 09:17:31 [facility] BMI 36 kg/m2 09/05/2024 09:17:31 [facility] PAIN 1 09/05/2024 09:17:31 [facility] TEMPERATURE 97.9 09/05/2024 09:17:31 [facility] PULSE 66 09/05/2024 09:17:31 [facility] RESPIRATION 16 09/05/2024 09:17:31 [facility] SYSTOLIC BLOOD PRESSURE 80 06/19/2024 13:13:09 [facility] DIASTOLIC BLOOD PRESSURE 53 06/19/2024 13:13:09 [facility] PULSE OXIMETRY 94 06/19/2024 13:13:09 [facility] WEIGHT 246.4 06/19/2024 13:13:09 [facility] BMI 38 kg/m2 06/19/2024 13:13:09 [facility] TEMPERATURE 98.6 06/19/2024 13:13:09 [facility] PULSE 62 06/19/2024 13:13:09 [facility] RESPIRATION 18 06/19/2024 13:13:09 [facility] SYSTOLIC BLOOD PRESSURE 124 03/07/2024 10:02:34 [facility] DIASTOLIC BLOOD PRESSURE 54 03/07/2024 10:02:34 [facility] PULSE OXIMETRY 94 03/07/2024 10:02:34 [facility] WEIGHT 241.9 03/07/2024 10:02:34 [facility] BMI 37 kg/m2 03/07/2024 10:02:34 [facility] PAIN 0 03/07/2024 10:02:34 [facility] TEMPERATURE 97.9 03/07/2024 10:02:34 [facility] PULSE 59 03/07/2024 10:02:34 [facility] RESPIRATION 16 03/07/2024 10:02:34 [facility] SYSTOLIC BLOOD PRESSURE 115 01/16/2024 11:07:29 [facility] DIASTOLIC BLOOD PRESSURE 58 01/16/2024 11:07:29 [facility] PULSE OXIMETRY 96 01/16/2024 11:07:29 [facility] WEIGHT 240.5 01/16/2024 11:07:29 [facility] BMI 37 kg/m2 01/16/2024 11:07:29 [facility] PAIN 4 01/16/2024 11:07:29 [facility] TEMPERATURE 97.7 01/16/2024 11:07:29 [facility] PULSE 61 01/16/2024 11:07:29 [facility] RESPIRATION 18 01/16/2024 11:07:29 [facility] Encounters Combined list of: 1) Encounters from Department of Veterans Affairs facilities going backup to the last 18 months, not all [place] inpatient encounters are included; 2) Encounters from the Department of Defense facilities going backup to 280 months. Location Location Details Encounter Type Encounter Number Reason For Visit Attending Provider ADM Date DC Date Status Disposition Source [facility] FEE [id number] [id number] Diagnos is: ICD-10- CM Z71.89 Other specifi ed skilled nursing facility counselor JACKIE Gaston 05/10 [facility] ORTHOTIC MGMT&TRAIN G 1ST ENC 82370-1.55 [id number] Diagnos is: ICD-10- CM I89.0 Lymphed jeffery, not elsewhe re classif ied CORA GARCIA 05/10 [facility] Outpatient Encounter 18534-6.55 [id number] 06/12 [facility] Outpatient Encounter [id number] [id number] 06/13 [facility] FEE 84300-4.55 [id number] Diagnos is: ICD-10- CM Z71.89 Other specifi ed skilled nursing facility counselor JACKIE Gaston 06/15 [facility] OPC OFFICE O/P EST SF 10 MIN 59890-9.55 [id number] Diagnos is: ICD-10- CM Z46.89 Encount er for fitting and adjustm ent of oth devices CHAITANYA ROSS 06/15 [facility] Outpatient Encounter 99542-1.55 [id number] 07/10 [facility] Outpatient Encounter 13408-0.55 [id number] 07/10 [facility] Outpatient Encounter 48817-5.55 [id number] 07/10 [facility] Outpatient Encounter 35928-4.55 [id number] 07/10 [facility] Outpatient Encounter 21701-5.55 [id number] 07/11 [facility] Outpatient Encounter 58446-7.55 [id number] 07/11 [facility] 20939-4.55 [id number] 07/11 [facility] Outpatient Encounter 54222-6.55 [id number] 07/11 [facility] En[facility] 42863-8.55 [id number] 07/11 [facility] Outpatient Encounter 33834-6.55 [id number] 07/13 [facility] Outpatient Encounter 19075-0.55 [id number] 07/19 [facility] Outpatient Encounter 48168-5.55 [id number] 07/20 [facility] Outpatient Encounter 20827-7.55 [id number] 07/20 [facility] Outpatient Encounter 70924-5.55 [id number] 07/20 [facility] Outpatient Encounter 89317-6.55 [id number] 07/23 [facility] Outpatient Encounter 75039-4.55 [id number] 07/23 [facility] Outpatient Encounter 18483-2.55 [id number] 07/24 [facility] Outpatient Encounter 70469-5.55 [id number] 07/25 [facility] Outpatient Encounter 51878-3.55 [id number] 07/25 [facility] TRIM NAIL(S) 57554-5.55 [id number] Diagnos is: ICD-10- CM Z71.89 Other specifi ed skilled nursing facility counselor JACKIE Gaston 07/26 [facility] OPC OFFICE O/P EST MOD 30 MIN 13531-2.55 [id number] Diagnos is: ICD-10- CM E11.40 Type 2 diabete s mellitu s with diabeti c neuropa thy, unsp AB MIREYA COONEYIL A 07/26 [facility] Outpatient Encounter 42500-5.55 [id number] 07/31 [facility] Outpatient Encounter 55799-1.55 [id number] 08/07 [facility] Outpatient Encounter 77614-8.55 [id number] 08/08 [facility] Outpatient Encounter 86265-3.55 [id number] 08/08 [facility] Outpatient Encounter 68414-6.55 [id number] 08/08 [facility] Outpatient Encounter 42887-1.55 [id number] 08/08 [facility] Outpatient Encounter 74197-0.55 [id number] 08/10 [facility] OFFICE O/P EST MOD 30 MIN 96530-9.55 [id number] Diagnos is: ICD-10- CM L98.9 Disorde r of the skin and subcuta neous tissue, unspeci fied BRISEIDA CONTRERAS 09/07 [facility] Outpatient Encounter 97760-2.55 [id number] 09/07 [facility] Outpatient Encounter 31568-1.55 [id number] 09/19 [facility] Outpatient Encounter 87352-4.55 [id number] 09/19 [facility] HC PRO PHONE CALL 21-30 MIN 83032-7.55 [id number] Diagnos is: ICD-10- CM Z71.89 Other specifi ed skilled nursing facility counselor PENNIE Feldman 09/19 [facility] Outpatient Encounter 06202-2.55 [id number] 09/20 [facility] Outpatient Encounter 24775-8.55 [id number] 09/20 [facility] Outpatient Encounter 86452-8.55 [id number] 10/01 [facility] 72254-2.55 [id number] 10/[facility] Outpatient Encounter 39526-6.55 [id number] 10/02 [facility] 93892-7.55 [id number] 10/11 [facility] Encounter 32881-8.55 [id number] 10/18 [facility] Outpatient Encounter 39873-6.55 [id number] 10/26 [facility] 83364-6.55 [id number] 10/26 [facility] Outpatient Encounter 38973-1.55 [id number] 10/26 [facility]counter 99860-8.55 [id number] 10/26 [facility] Encounter 96697-2.55 [id number] 10/31 [facility] Encounter 70945-3.55 [id number] 11/02 [facility] Outpatient Encounter 45979-7.55 [id number] 11/05 [facility] Encounter 90860-2.55 [id number] 11/06 [facility] Encounter 69752-2.55 [id number] 11/09 [facility] Outpatient Encounter 73943-3.55 [id number] 11/09 [facility] Outpatient Encounter 93108-8.55 [id number] 11/09 [facility] OFFICE O/P EST MOD 30 MIN 38827-2.55 [id number] Diagnos is: ICD-10- CM M65.331 Trigger finger, right middle finger BRISEIDA CONTRERAS 11/13 [facility] Outpatient Encounter 39959-0.55 [id number] 11/13 [facility] Outpatient Encounter 39059-6.55 [id number] 11/14 [facility] Outpatient Encounter 69714-6.55 [id number] 11/21 [facility] Outpatient Encounter 89564-1.55 [id number] 11/21 [facility] Outpatient Encounter 09368-3.55 [id number] 11/22 [facility] Outpatient Encounter 72264-8.55 [id number] 11/27 [facility] Outpatient Encounter 26152-9.55 [id number] 12/03 [facility] Outpatient Encounter 40246-3.55 [id number] 12/05 [facility] Outpatient Encounter 79075-3.55 [id number] 12/17 [facility] Outpatient Encounter 72207-1.55 [id number] 12/25 [facility] TRIM NAIL(S) ANY NUMBER 78430-7.55 [id number] Diagnos is: ICD-10- CM Z71.89 Other specifi ed skilled nursing facility counselor LIN Kenny 01/01 [facility] OPC OFFICE O/P EST LOW 20 MIN 12564-4.55 [id number] Diagnos is: ICD-10- CM E11.40 Type 2 diabete s mellitu s with diabeti c neuropa thy, unsp AB TASH COONEY A 01/01 [facility] Outpatient Encounter 39258-2.55 [id number] 01/03 [facility] Outpatient Encounter 82571-9.55 [id number] 01/07 [facility] Outpatient Encounter 00833-7.55 [id number] Diagnos is: ICD-10- CM L05.01 Pilonid al cyst with abscess JS IVY 01/07 [facility] Outpatient Encounter 76103-4.55 [id number] 01/09 [facility] Outpatient Encounter 48230-3.65 [id number] 6 VINCE DASILVA 01/11 [facility] Outpatient Encounter 02897-3.55 [id number] 01/11 [facility] Outpatient Encounter 36894-5.53 [id number] 01/11 [facility] Outpatient Encounter 98461-7.53 [id number] 01/11 [facility] Outpatient Encounter 76310-3.53 [id number] BRODY ZEE MD 01/11 [facility] OFFICE O/P EST LOW 20 MIN 92600-6.55 [id number] Diagnos is: ICD-10- CM L02.214 [place]aneo us abscess of groin BRISEIDA CONTRERAS 01/15 [facility] Outpatient Encounter 23833-1.55 [id number] 01/15 [facility] Outpatient Encounter 07202-7.55 [id number] 01/16 [facility] Outpatient Encounter 04095-7.55 [id number] 01/16 [facility] Outpatient Encounter 83745-1.55 [id number] 01/16 [facility] Outpatient Encounter 00716-7.55 [id number] Diagnos is: ICD-10- CM N39.0 Urinary tract infecti on, site not specifi ed JUAN MIGUEL ACEVEDO 01/16 [facility] Outpatient Encounter 31618-3.55 [id number] 01/17 [facility] Outpatient Encounter 42146-5.55 [id number] 01/17 [facility] Outpatient Encounter 15365-6.55 [id number] 01/18 [facility] Outpatient Encounter 75259-8.55 [id number] 01/18 [facility] Outpatient Encounter 33190-0.55 [id number] 01/18 [facility] Outpatient Encounter 44792-0.55 [id number] 01/21 [facility] Outpatient Encounter 67719-8.55 [id number] 01/22 [facility] Outpatient Encounter 48557-9.55 [id number] 01/30 [facility] Outpatient Encounter 39731-1.55 [id number] 01/30 [facility] Outpatient Encounter 77248-5.55 [id number] 01/31 [facility] HC PRO PHONE CALL 21-30 MIN 73401-7.55 [id number] Diagnos is: ICD-10- CM Z65.9 Problem related to unspeci fied psychos ocial circums tanBASILIA John 02/01 [facility] Outpatient Encounter 52403-6.55 [id number] 02/01 [facility] Outpatient Encounter 68727-4.55 [id number] 02/06 [facility] Outpatient Encounter 62992-6.55 [id number] 02/06 [facility] Outpatient Encounter 80510-6.55 [id number] 02/06 [facility] Outpatient Encounter 68637-2.55 [id number] 02/07 [facility] Outpatient Encounter 05720-7.55 [id number] 02/18 [facility] Outpatient Encounter 01966-2.55 [id number] 03/07 [facility] OFFICE O/P EST MOD 30 MIN 43824-3.55 [id number] Diagnos is: ICD-10- CM L72.3 Sebaceo us cyst BEN,SCO TT BRITANY 03/07 [facility] TRIM NAIL(S) ANY NUMBER 30800-4.55 [id number] Diagnos is: ICD-10- CM Z71.89 Other specifi ed skilled nursing facility counselor LIN Kenny 04/10 [facility] SYNCH AUDIO-VIDE O EST LOW 20 83697-4.55 [id number] Diagnos is: ICD-10- CM E11.40 Type 2 diabete s mellitu s with diabeti c neuropa thy, AB MIREYA DeleonIL A 04/10 [facility] Outpatient Encounter 77011-2.55 [id number] 04/11 [facility] Outpatient Encounter 64182-8.55 [id number] 04/16 [facility] Outpatient Encounter 80142-3.55 [id number] 04/22 [facility] Outpatient Encounter 60964-7.55 [id number] 04/22 [facility] Outpatient Encounter 42359-3.55 [id number] 04/22 [facility] Outpatient Encounter 75652-0.55 [id number] 04/24 [facility] Outpatient Encounter 04542-8.55 [id number] 04/29 [facility] Outpatient Encounter 50991-7.55 [id number] AB MIREYA COONEYIL A 05/15 [facility] SYNCH AUDIO-ONLY EST SF 10 34407-2.55 [id number].[id number] Diagnos is: ICD-10- CM E11.40 Type 2 diabete s mellitu s with diabeti c neuropa thy, AB Pancho IGAIL A 05/15 [facility] Outpatient Encounter 54578-0.55 [id number] 06/05 [facility] Outpatient Encounter 44558-8.55 [id number] 06/05 [facility] Outpatient Encounter 52081-0.55 [id number] 06/05 [facility] PH1 ASSMT&MGMT NQHP 5-10 69441-2.55 [id number] Diagnos is: ICD-10- CM Z65.9 Problem related to unspeci fied psychos ocial circums BASILIA Ricci 06/05 [facility] Outpatient Encounter 60296-4.55 [id number] 06/14 [facility] Outpatient Encounter 12262-2.55 [id number] 06/14 [facility] Outpatient Encounter 80246-6.55 [id number] 06/17 [facility] Outpatient Encounter 61690-5.55 [id number] 06/19 [facility] OFFICE O/P EST MOD 30 MIN 16601-0.55 [id number] Diagnos is: ICD-10- CM I25.9 Chronic ischemi c heart disease , unspeci fied BRISEIDA CONTRERAS 06/19 [facility] Outpatient Encounter 39834-6.55 [id number] 06/21 [facility] Outpatient Encounter 79411-6.55 [id number] 06/21 [facility] Outpatient Encounter 72870-2.55 [id number] 06/26 [facility] Outpatient Encounter 65524-8.55 [id number] 07/01 [facility] TRIM NAIL(S) ANY NUMBER 71566-5.55 [id number] Diagnos is: ICD-10- CM Z71.89 Other specifi ed skilled nursing facility counselor ASHA Hernandez 07/03 [facility] OPC SYNCH AUDIO-VIDE O EST MOD 30 88142-2.55 [id number] Diagnos is: ICD-10- CM E11.40 Type 2 diabete s mellitu s with diabeti c neuropa thy, unsp AB EROS IGAIL A 07/03 [facility] ORTHOTIC MGMT&TRAIN G 1ST ENC 94776-9.55 [id number].[id number] 04 Diagnos is: ICD-10- CM E11.40 Type 2 diabete s mellitu s with diabeti c neuropa thy, unsp PERROW,BETTINA HOLAS C 07/03 [facility] Outpatient Encounter 22566-9.55 [id number] 07/16 [facility] Outpatient Encounter 70919-1.55 [id number] 07/16 [facility] Outpatient Encounter 66678-5.55 [id number] Diagnos is: ICD-10- CM E11.40 Type 2 diabete s mellitu s with diabeti c neuropa thy, unsp AB EROS IGAIL A 08/09 [facility] Outpatient Encounter 20177-7.55 [id number] 08/12 [facility] ORTHC/PROS TC MGMT SBSQ ENC 08115-4.55 [id number] 70 Diagnos is: ICD-10- CM E11.40 Type 2 diabete s mellitu s with diabeti c neuropa thy, unsp PERROW,BETTINA HOLAS C 08/14 [facility] Outpatient Encounter 70256-4.55 [id number] 08/15 [facility] Outpatient Encounter 83099-0.55 [id number] 08/21 [facility] Outpatient Encounter [id number] [id number] 08/22 [facility] Outpatient Encounter 91407-2.55 [id number] 08/22 [facility] Outpatient Encounter 27295-6.55 [id number] 08/26 [facility] Outpatient Encounter 48815-4.55 [id number] 08/27 [facility] PH1 ASSMT&MGMT NQHP 11-20 74796-1.55 [id number] Diagnos is: ICD-10- CM 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 elsewALYSSA Woods IEL 08/27 [facility] Outpatient Encounter 94966-4.55 [id number] 08/31 [facility] Outpatient Encounter 79915-2.55 [id number] 08/31 [facility] SYNCH AUDIO-ONLY EST SF 10 54710-0.55 [id number] Diagnos is: ICD-10- CM Z76.0 Encount er for issue of repeat prescri ption JOVAN GARCAIE Santa 08/31 [facility] Outpatient Encounter 41282-9.55 [id number] 09/05 [facility] Outpatient Encounter 10855-8.55 [id number] 09/05 [facility] OFFICE O/P EST MOD 30 MIN 93340-9.55 [id number] Diagnos is: ICD-10- CM L72.3 BRISEIDA Pozo 09/05 [facility] 46753-7.55 [id number] 09/07 [facility] Outpatient Encounter 26762-7.55 [id number] 09/09 [facility] Outpatient Encounter 14417-8.55 [id number] 09/09 [facility] Outpatient Encounter 88243-7.55 [id number] 09/09 [facility] Outpatient Encounter 77198-4.55 [id number] 09/10 [facility] Outpatient Encounter 44827-1.55 [id number] 09/10 [facility] Outpatient Encounter 39626-4.55 [id number] 09/10 [facility] Outpatient Encounter [id number] [id number] 09/11 [facility] Outpatient Encounter 73107-6.65 [id number] 4 TRISTIAN ANAYA 09/13 [facility] Encounter 65984-9.55 [id number] 09/16 [facility] En[facility] 74285-0.55 [id number] 09/18 [facility] Encounter 36934-2.55 [id number] 09/18 [facility] Encounter 74789-2.55 [id number] 09/20 [facility] Encounter 98781-0.55 [id number] 09/20 [facility] Encounter 77170-7.55 [id number] 09/23 [facility] Encounter 59787-4.55 [id number] 09/24 [facility] Encounter 50276-3.55 [id number] 09/24 [facility] Encounter 69851-0.55 [id number] 09/25 [facility] Encounter 94076-7.55 [id number] 09/26 [facility] Encounter 20816-9.55 [id number] 10/01 [facility] Encounter 62656-6.55 [id number] 10/02 [facility] Encounter 51801-0.55 [id number] 10/02 [facility] Encounter 75081-6.55 [id number] 10/04 [facility] Encounter 74292-0.55 [id number] 10/08 [facility] Encounter 53359-9.55 [id number] 10/08 [facility] Encounter 93550-6.55 [id number] 10/08 [facility] Encounter 21522-6.55 [id number] 10/08 [facility] Encounter 56159-7.55 [id number] 10/09 [facility] OFFICE O/P EST MOD 30 MIN 25780-0.55 [id number] 71 Diagnos is: ICD-10- CM L72.3 BRISEIDA Pozo 10/11 [facility] Outpatient Encounter 39891-4.55 [id number] 10/11 [facility] Outpatient Encounter 97842-0.55 [id number] 10/11 [facility] Outpatient Encounter 83232-8.55 [id number] 10/17 [facility] Outpatient Encounter 92984-0.55 [id number] 10/17 [facility] Outpatient Encounter 92517-5.55 [id number] 10/21 [facility] TRIM NAIL(S) ANY NUMBER [id number] Diagnos is: ICD-10- CM Z71.89 Other specifi ed skilled nursing facility counselor LIN Kenny 10/23 [facility] SYNCH AUDIO-VIDE O EST MOD 30 [id number] Diagnos is: ICD-10- CM E11.40 Type 2 diabete s mellitu s with diabeti c neuropa thy, unsp EROS,AB IGAIL A 10/23 [facility] Outpatient Encounter [id number] 10/30 [facility] Outpatient Encounter [id number] 11/01 [facility] Outpatient Encounter [id number] 11/05 [facility] Social History Combined list of available smoking, tobacco, and other social history from [facility] and [facility] facilities. Social History Type Response Date Comment Sourc e Tobacco smoking status NHIS VA-TOBACCO USE EVERY DAY CIGARETTES 09/05/2024 [facility] History of tobacco use VA-TOBACCO NEVER USED OTHER TYPE 09/05/2024 [facility] History of tobacco use VA-TOBACCO USER EVERY DAY 09/08/2023 [facility] History of tobacco use VA-TOBACCO USER EVERY DAY 08/23/2022 [facility] History of tobacco use VA-TOBACCO USER EVERY DAY 05/07/2021 [facility] History of tobacco use VA-TOBACCO USER EVERY DAY 05/07/2020 [facility] 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 02/13/2019 [facility] History of tobacco use VA-TOBACCO USER EVERY DAY 09/25/2017 [facility] History of tobacco use HF.TOBACCO COUNSELING REFUSED 09/20/2017 [facility] History of tobacco use TOBACCO CESSATION MEDS REFUSED 07/11/2017 [facility] History of tobacco use HF.TOBACCO COUNSELING REFUSED 05/05/2017 [facility] History of tobacco use HF.TOBACCO COUNSELING REFUSED 02/01/2017 [facility] History of tobacco use TOBACCO CESSATION MEDS REFUSED 08/29/2016 [facility] History of tobacco use HF.TOBACCO COUNSELING REFUSED 05/23/2016 [facility] History of tobacco use HF.TOBACCO COUNSELING REFUSED 02/29/2016 [facility] History of tobacco use TOBACCO CESSATION MEDS REFUSED 08/26/2015 [facility] History of tobacco use CURRENT TOBACCO USER 07/23/2014 [facility] History of tobacco use CURRENT TOBACCO USER 01/27/2014 [facility] History of tobacco use CURRENT TOBACCO USER 09/24/2012 [facility] History of tobacco use CURRENT TOBACCO USER 10/06/2011 [facility] History of tobacco use CURRENT TOBACCO USER 12/29/2010 [facility] History of tobacco use TOBACCO OFFERED STOP SMOKING CLINIC 12/06/2010 [facility] History of tobacco use CURRENT TOBACCO USER 12/16/2009 [facility] History of tobacco use CURRENT TOBACCO USER 05/20/2009 [facility] History of tobacco use CURRENT TOBACCO USER 06/02/2008 [facility] History of tobacco use TOBACCO OFFERRED PT MEDS (PROVIDER) 04/25/2007 [facility] History of tobacco use CURRENT TOBACCO USER 11/20/2006 [facility] History of tobacco use CURRENT TOBACCO USER 06/28/2006 [facility] History of tobacco use CURRENT TOBACCO USER 04/12/2006 [facility] History of tobacco use CURRENT TOBACCO USER 08/11/2005 [facility] History of tobacco use CURRENT TOBACCO USER 01/12/2005 [facility] History of tobacco use CURRENT TOBACCO USER 12/15/2004 [facility] History of tobacco use CURRENT TOBACCO USER 03/01/2004 [facility] History of tobacco use CURRENT TOBACCO USER 10/22/2003 [facility] History of tobacco use CURRENT TOBACCO USER 08/11/2003 [facility] History of tobacco use CURRENT TOBACCO USER 04/16/2003 [facility] History of tobacco use CURRENT TOBACCO USER 11/08/2002 [facility] History of tobacco use CURRENT TOBACCO USER 08/07/2002 [facility] History of tobacco use CURRENT TOBACCO USER 04/23/2002 [facility] History of tobacco use CURRENT TOBACCO USER 01/10/2002 [facility] History of tobacco use CURRENT TOBACCO USER 10/08/2001 [facility] History of tobacco use CURRENT TOBACCO USER 07/05/2001 [facility] History of tobacco use CURRENT TOBACCO USER 09/07/2000 [facility] History of tobacco use CURRENT SMOKER 10/26/1998 [facility] History of tobacco use CURRENT SMOKER 05/04/1998 [facility] Plan of Care List of future care activities from [facility] of [facility] Affairs facilities. Additional future care activities may be listed in the Assessment and Plan section. Date/Time Care Activity Care Activity Detail Facili ty 11/06/2024 AMBULATORY - NONE AMBULATORY - NONE [facility] Advance Directives List of completed, amended, or rescinded Advance Directives on record at [facility] facilities. An actual copy of the Directive is not included. Date Advance Directive Provider Source 08/13/2013 ADVANCE DIRECTIVE MARITA SANDERS [facility] 10/13/1998 ADVANCE DIRECTIVE Jessica YOST [facility] 03/14/1994 ADVANCE DIRECTIVE YUMIKO HOLMAN [facility]
--- OUTSIDE RECORDS SUMMARY | 2024-11-05 15:54 | XMS_ITS ---
Author Name [facility] [place] [facility] [place] [facility] [place] Address [address] [place] [address] Care Team Providers Care Metal Flow Coordinator Name Role Phone DANNY CONTRERAS Primary Care Provider Unavailabl e Selected Encounter This section includes the information on record at [place] for the Encounter. Date/Time Encounter Type Encounter Description Reason Provider Source Sep 13, 2024 01:20 PM Outpatient Encounter GENERAL INTERNAL MEDICINE DARRELL ANAYA IHManjinder Encounter Template Text not used by [place] [...] 02, 2024 11:00 AM AMBULATORY - NONE [facility] Oct 11, 2024 08:30 AM AMBULATORY - MEDICINE [facility] Oct 21, 2024 10:00 AM AMBULATORY - NONE [facility] Oct 23, 2024 10:00 AM AMBULATORY - SURGERY [facility] Oct 23, 2024 10:05 AM AMBULATORY - NONE [facility] Nov 06, 2024 08:30 AM [facility]BULATORY - NONE [facility] Nov 28, 2024 09:30 AM AMBULATORY - NONE [facility] Jan 21, 2025 10:00 AM AMBULATORY - NONE [facility] Feb 05, 2025 11:30 AM AMBULATORY - SURGERY [facility] Feb 05, 2025 11:35 AM AMBULATORY - NONE [facility] Feb 27, 2025 09:30 AM AMBULATORY - NONE [facility] Mar 06, 2025 09:30 AM AMBULATORY - MEDICINE [facility] Active, Pending, and Scheduled Orders This section includes a listing of several types of active, pending, and scheduled orders, including clinic medications orders, diagnostic test orders, procedure orders and consult orders; where the start date of the order is 45 days before the date of the Encounter or 45 days after the date of theEncounter. The data comes from all [place] treatment facilities. Test Date/Time Test Type Test Details Facility Name August 23, 2024 09:56 AM Consult Order COMMUNITY CARE-DERMATOLOGY [facility] Oct 03, 2024 01:35 PM Consult Order COMMUNITY CARE-DS ROUTINE OPTOMETRY [facility] Oct 28, 2024 01:11 PM Consult Order PROSTHETIC S REQUEST - OUTPT [facility] Lab Results: +/- 30 days of the [...] Type Comment Aug 27, 2024 09:21 AM [facility] VITAMIN B12 ([facility]) SERUM Specimen Type: SERUM Comment: Methotrexate and Leucovorin (folinic acid) interfere with the measurement of folate. Patients receiving these drugs should not be tested for folate by this method. Ordering Provider: DANNY CONTRERAS Report Released Date/Time: Jun 28, 2024 07:56 AM Reporting Lab: [facility] [address] [facility] [address] Performing Lab: [facility] [address] [facility] [address] VITAMIN B12 (CONTRERAS) 728 pg/mL 193-986 Aug 27, 2024 09:21 AM [facility] FOLATE ([facility]) SERUM Specimen T ype: SERUM Comment: Methotrexate and Leucovorin (folinic acid) interfere with the measurement of folate. Patients receiving these drugs should not be tested for folate by this method. Ordering Provider: DANNY CONTRERAS Report Released Date/Time: May 03, 2024 12:41 PM Reporting Lab: [place] [id number] [facility] [address] Performing Lab: [facility] [address] [facility] [address] FOLATE (CONTRERAS) >48.00 ng/mL 5.39-48.00 Aug 27, 2024 09:21 AM [facility] FERRITIN (CONTRERAS) SERUM Specimen Type: SERUM Comment: Methotrexate and Leucovorin (folinic acid) interfere with the measurement of folate. Patients receiving these drugs should not be tested for folate by this method. Ordering Provider: DANNY CONTRERSA Report Released Date/Time: May 24, 2024 09:08 AM Reporting Lab: [place] [id number] [facility] [address] Performing Lab: [facility] [address] [facility] [address] FERRITIN (CONTRERAS) 27.9 ng/mL 26.0-388.0 Aug 27, 2024 09:21 AM [facility] A1C % BLOOD Specimen Type: BLOOD [...] Mar 07, 2024 10:28 AM Reporting Lab: [address] [address] Performing Lab: [address] [address] A1C % 6.2 H 0.0-5.6 Aug 27, 2024 09:21 AM [facility] IRON PANEL SERUM Specimen T ype: SERUM Comment: TIBC may be inaccurate if patient is on iron dextran in the last 14 days. Ordering Provider: DANNY CONTRERAS Report Released Date/Time: Mar 07, 2024 10:32 AM Reporting Lab: [address] [address] Performing Lab: [address] [address] IRON 69 ug/dL 65-175 TOT IRON BINDING CAPAC 395 ug/dL 250-450 % IRON SATURATION 17 10-50 Aug 27, 2024 09:21 AM [facility] COMPREHENSIVE PNL PLASMA Specime n Type: PLASMA Comment: eGFR was calculated using the CKD-EPI Creatinine (2020) equation. Ordering Provider: DANNY CONTRERAS Report Released Date/Time: Mar 07, 2024 10:28 AM Reporting Lab: [address] [address] Performing Lab: [address] [address] ANION GAP 6 mmol/L 5-15 EGFR 54 [...] H 0.73-1.18 Aug 27, 2024 09:21 AM [facility] CBC W/DIFF BLOOD Specimen T ype: BLOOD No comment entered. Ordering Provider: DANNY CONTRERAS Report Released Date/Time: Mar 07, 2024 10:28 AM Reporting Lab: [address] [address] Performing Lab: [address] [address] WBC 7.6 10*3/uL 4.0-11.0 RBC 4.27 10*6/uL [...] 0.0 /100{WBCs} 0.0-0.2 NRBC# <0.01 10*3/uL 0.00-0.01 Social History: Smoking Status (Most current) and Tobacco Use (All prior to encounter date) This section includes the most current, and the historical, smoking and tobacco- related health factors from the [place] facility where the Encounter took place. Current Smoking Status This section includes the most current smoking, or tobacco-related health factor, from the [place] facility where the Encounter took place. Date/Time Current Smoking Status Comment Melissa corbiny Jul 23, 2014 09:38 AM CURRENT TOBACCO USER [facility] Tobacco Use History This section includes a history of the smoking, or tobacco-related health factors, that were collected on or before the date of the Encounter. The data comes from the [place] facility where the Encounter took place. Date/Time Smoking Status/Tobacco Use Comment Mao mancini Jul 23, 2014 09:38 AM TOBACCO MEDS OFFER ED BUT DECLINED [facility] Dec 06, 2010 06:57 PM CURRENT TOBACCO USER [facility] Dec 06, 2010 06:[address] [facility] Dec 15, 2004 01:48 PM CURRENT TOBACCO USER [facility] Dec 15, 2004 01:48 PM SMOKER 2 OR > PACKS [facility] Dec 15, 2004 01:48 PM TOBACCO PRECONTEMPLATION STAGE [facility] August 11, 2003 01:19 PM CURRENT TOBACCO USER [facility] August 11, 2003 01:19 PM SMOKER 2 OR > PACKS [facility] August 11, 2003 01:19 PM TOBACCO PRECONTEMPLATION STAGE [facility] Apr 16, 2003 08:31 AM CURRENT TOBACCO USER [facility] Apr 16, 2003 08:31 AM SMOKER 1-2 PACKS [facility] Nov 08, 2002 08:33 AM CURRENT TOBACCO USER [facility] Nov 08, 2002 08:33 AM TOBACCO USE . [facility] August 07, 2002 08:18 AM CURRENT TOBACCO USER [facility] August 07, 2002 08:18 AM TOBACCO USE . [facility] Apr 23, 2002 09:55 AM CURRENT TOBACCO USER [facility] Apr 23, 2002 09:55 AM TOBACCO USE . [facility] Jan 10, 2002 10:53 AM CURRENT TOBACCO USER [facility] Jan 10, 2002 10:[address] [facility] [facility] Oct 08, 2001 10:26 AM CURRENT TOBACCO USER [facility] Oct 08, 2001 10:26 AM TOBACCO USE . [facility] Jul 05, 2001 09:03 AM CURRENT TOBACCO USER [facility] Jul 05, 2001 09:03 AM TOBACCO USE . [facility] Sep 07, 2000 09:42 AM CURRENT TOBACCO USER [facility] Oct 26, 1998 09:[address] [facility] May 04, 1998 10:30 AM CURRENT SMOKER [facility] Advance Directives: All historical and current Section Date Range: From patient's date of to the date document was created. This section includes ALL of a patient's completed or amended [place] Advance and Rescinded Directives. The entries below indicate that a directive exists for the patient, but an actual copy is not included with this document. The data comes from all [facility]. Date Advance Directives Provider Source August 13, 2013 ADVANCE DIRECTIVE MARITA SANDERS [facility] Oct 13, 1998 ADVANCE DIRECTIVE Jessica YOST [facility] Mar 14, 1994 ADVANCE DIRECTIVE YUMIKO HOLMAN [facility] Encounter Notes: All associated encounter notes This section contains the clinical notes associated to the Encounter. Date/Time Encounter Note(s) Provider Source Sep 07, 2024 01:20 PM NONVA NOTE: LOCAL TITLE: [facility] COORD PLAN STANDARD TITLE: NONVA NOTE DATE OF NOTE: SEP 07, 2024@13:20 ENTRY DATE: SEP 13, 2024@13:20:47 AUTHOR: JANES SCHMIDT COSIGNER: URGENCY: STATUS: COMPLETED Emergency Notification Intake Date Presenting to the Facility: Aug Method of Contact: Notified from [facility] worklist Notification ID: [id number] [facility] Referral #: [id number] Clinical Review [facility] Name: Hospital: [facility] Address: [address] [place] [address] City: [place] State: [place] Zip Code: [address] [facility] Point of Contact: Name: Joyce Jurado Chief complaint: SEVERE BP DROP. Took double dose of BP meds accidently Primary Diagnosis: Disposition Unknown at time of intake note entry No records pertinent to this ER Visit found in [facility]. Faxed request for records to [facility]. [facility] ([id number]) Primary Care Provider: DANNY CONTRERAS Manipulative Therapy Specialist: CHRISTELLE ACE/ JUNE ROXANA ADVANCED CLINICAL DATA ASSOCIATE Signed: 09/13/2024 13:26 JANES SCHMIDT [facility]
--- OUTSIDE RECORDS SUMMARY | 2024-11-05 15:54 | XMS_ITS | Encounter Summary ---
Author Organization [facility] Address [address] [place] [address] Care Team Providers Care Dust Collector Treater Name Role Phone Yonathan Kellogg MD Unavailable [phone] Denise Elmore SQUEEGEER AND FORMER Primary Care Provider [phone] Omar River MD Unavailable Unavailable None, Provider Primary [facility] Kaitlin Fuentes MD Unavailable [phone] Dre Boss MD Primary Care Provider [phone] Agustin Vidal MD Unavailable Aaron Rivera MD Unavailable Unavailable Patricia Lamar NP Unavailable [phone] Agustin Vidal MD Unavailable Eduardo Foster MD Unavailable Unavailable Encounter Details Date Type Department Care Team (Late st Contact Info) Description 02/14/2018 Abstract [facility] [address] [place] [phone] Yonathan Kellogg MD [address] [place] [address] Social History Tobacco Use Types Packs/Day Years Used Date Smoking Tobacco: Every Day Cigarettes 2 50 Smokeless Tobacco: Never Alcohol Use Standard Drinks/Week Comments Yes 1.7 (1 standard drin k = 0.6 oz pure alcohol) drinks one 5th of hard liquor in per week Sex and Gender Information Value Date Recorded Sex Assigned at Not on file Legal Sex Male 4:09 PM CDT Gender Identity Not on file Sexual Orientation Not on file documented as of this encounter Plan of Treatment Upcoming Encounters Date Type Department Care Team (Late st Contact Info) Description 11/28/2024 9:30 AM CDT Appointment [facility] Associate Professor Of English [address] [place] [address] Ildefonso Mai MD [address] [place] [address] 12/02/2024 11:00 AM CDT Allied Health/Nurse Visit [facility] [address] [place] [phone] Yonathan Kellogg MD [address] [place] [phone] 12/02/2024 11:15 AM CDT Office Visit [facility] [address] [place] [address] Yonathan Kellogg MD [address] [place] [phone] 01/01/2025 1:15 AM CDT [facility] [address] [place] [phone] Yonathan Kellogg MD [address] [place] [address] documented as of this encounter Visit Diagnoses Not on filedocumented in this encounter Additional Health Concerns Infection Onset Date Last Indicated Resolved Time COVID-19 Rule Out 12/15/2020 12/15/2020 12/15/2020 7:21 PM CDT COVID-19 Rule Out 04/05/2021 04/05/2021 04/05/2021 8:31 PM 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 documented as of this encounter Care Teams Dust Collector Treater Relationship Specialty Start Date End Date Denise Elmore NP [address] [place] [phone] PCP - General NURSE PRACTITIONER 10/05/17 07/21/20 Jose C Georges MD PCP - General 07/22/20 08/18/20 Dre Boss MD [address] [place] [id number] PCP - General INTERNAL MEDICINE 08/19/20 Yonathan Kellogg MD [address] [place] [address] EP Freight Team Associate CLINICAL CARDIAC ELECTROPHYSIOLOGY 10/05/17 Omar River MD INTERVENTIONAL CARDIOLOGY 10/27/17 1 Kaitlin Fuentes MD Consulting Physician INTERNAL MEDICINE 07/23/20 Agustin Vidal MD [address] [place] [address] Vascular/Freight Team Associate INTERNAL MEDICINE 08/19/20 Aaron Rivera MD [address] [place] [phone] Consulting Physician INTERVENTIONAL CARDIOLOGY 12/28/20 1 04/18/23 Patricia Lamar NP [phone] [place] [phone] Nurse Practitioner Nurse Practitioner [facility] 12/28/20 08/14/24 Agustin Vidal MD [address] [facility] [address] [place] [phone] Vascular/Freight Team Associate INTERNAL MEDICINE 08/18/21 Eduardo Foster MD [address] [facility] [address] [place] [address] Consulting Physician Orthopaedic Surgery Sports Medicine 11/03/23 documented as of this encounter
--- OUTSIDE RECORDS SUMMARY | 2024-11-05 15:54 | XMS_ITS | Encounter Summary ---
Author Name [facility] [place] [facility] Address [address] [place] [address] Care Team Providers Care Box Covering Machine Operator Name Role Phone DRE CONTRERAS Primary Care Provider Unavailabl e Selected Encounter This section includes the information on record at [place] for the Encounter. Date/Time Encounter Type Encounter Description Reason Provider Source Jan 16, 2024 11:00 AM OFFICE O/P EST LOW 20 MIN PRIMARY CARE/MEDICINE ICD-10-CM L02.214 Cutaneous abscess of groin DRE CONTRERAS Manjinder Encounter Template Text not used by [place] Assessments - Encounter Diagnoses This section includes the primary and secondary diagnoses documented for the Encounter. Date/Time Primary/Secondary Diagnosis Diagnosis Name Provider Source Jan 16, 2024 11:28 AM PRIMARY Cutaneous abscess of groin DRE CONTRERAS [facility] Plan of Treatment: Future Appointments (+ 6 months) and Future Tests (+/- 45 days) The Plan of Treatment section includes future care activities for the patient from all [place] treatmentfacilities. This section includes future appointments and future orders which are active, pending or scheduled. Future Appointments This section includes appointments that were scheduled to occur 6 months from the date of the Encounter, up to a maximum of 20 appointments. The data comes from all [place] treatment facilities. Appointment Date/Time Appointment Type Appointme [...] 2024 02:15 AM AMBULATORY - NONE [facility] Feb 29, 2024 09:50 AM AMBULATORY - NONE [facility] Mar 07, 2024 10:00 AM AMBULATORY - MEDICINE [facility] Apr 10, 2024 11:30 AM AMBULATORY - SURGERY [facility] Apr 10, 2024 11:35 AM AMBULATORY - NONE [facility]ENON DUNLAP [facility] Jun 17, 2024 10:00 AM AMBULATORY - NONE [facility] Jun 19, 2024 01:30 PM AMBULATORY - MEDICINE [facility] Jul 03, 2024 09:30 AM AMBULATORY - SURGERY [facility] Jul 03, 2024 09:35 AM AMBULATORY - NONE ZENON DUNLAP [facility] Jul 03, 2024 11:00 AM AMBULATORY - NONE [facility] Jul 16, 2024 10:15 AM AMBULATORY - NONE [facility] Vital Signs: All taken on the encounter date This section contains inpatient and outpatient Vital Signs collected on the date of the Encounter. Date/Time Temperature Pulse Blood Pressure Respiratory Rate SP02 Pain Height Weight Body Mass Index Source Jan 16, 2024 11:07 AM 97.7 61 115/58 18 96 4 240.5 37 [facility] Social History: Smoking [...] 2023 10:30 AM VA-TOBACCO USER EVERY DAY [facility] Tobacco Use History This section includes a history of the smoking, or tobacco-related health factors, that were collected on or before the date of the Encounter. The data comes from the [place] facility where the Encounter took place. Date/Time Smoking Status/Tobac co Use Comment Facility Sep 08, 2023 10:30 AM VA-TOBACCO USE ADVICE [facility] [place] Sep 08, 2023 10:30 AM VA-TOBACCO USE SUPERVISOR ANODIZING NO [facility] Sep 08, 2023 10:30 AM VA-TOBACCO USE MED [facility] Sep 08, 2023 10:30 AM VA-TOBACCO USE [place] 30 MIN OF [facility] Sep 08, 2023 10:30 AM VA-TOBACCO USER EVERY DAY [facility] August 23, 2022 08:30 AM VA-TOBACCO USE [address] [facility] August 23, 2022 08:30 AM VA-TOBACCO USE ADVICE [facility] [place] August 23, 2022 08:30 AM VA-TOBACCO USE SUPERVISOR ANODIZING NO [facility] August 23, 2022 08:30 AM VA-TOBACCO USE MED NO [facility] [place] August 23, 2022 08:30 AM VA-TOBACCO USE [place] 30 MIN OF [facility] August 23, 2022 08:30 AM VA-TOBACCO USER EVERY DAY [facility] May 07, 2021 10:00 AM VA-TOBACCO USE [address] [facility] May 07, 2021 10:00 AM VA-TOBACCO USE ADVICE [facility] [place] May 07, 2021 10:00 AM VA-TOBACCO USE SUPERVISOR ANODIZING NO [facility] May 07, 2021 10:00 AM VA-TOBACCO USE MED NO [facility] [place] May 07, 2021 10:00 AM VA-TOBACCO USE [place] 30 MIN OF [facility] May 07, 2021 10:00 AM VA-TOBACCO USER EVERY DAY [facility] May 07, 2020 01:00 PM VA-TOBACCO USE [address] [facility] May 07, 2020 01:00 PM VA-TOBACCO USE ADVICE [facility] [place] May 07, 2020 01:00 PM VA-TOBACCO USE SUPERVISOR ANODIZING NO [facility] May 07, 2020 01:00 PM VA-TOBACCO USE MED NO [facility] May 07, 2020 01:00 PM VA-TOBACCO USE [place] 30 MIN OF [facility] May 07, 2020 01:00 PM VA-TOBACCO USER EVERY DAY [facility] Feb 13, 2019 11:11 AM VA-TOBACCO USE [address] [facility] Feb 13, 2019 11:11 AM VA-TOBACCO USE ADVICE [facility] [place] Feb 13, 2019 11:11 AM VA-TOBACCO USE SUPERVISOR ANODIZING NO [facility] Feb 13, 2019 11:11 AM VA-TOBACCO USE MED NO [facility] [place] Feb 13, 2019 11:11 AM VA-TOBACCO USE [place] 30 MIN OF [facility] Feb 13, 2019 11:11 AM VA-TOBACCO USER EVERY DAY [facility] Sep 25, 2017 04:04 PM VA-TOBACCO USE [address] [facility] Sep 25, 2017 04:04 PM VA-TOBACCO USE ADVICE [facility] [place] Sep 25, 2017 04:04 PM VA-TOBACCO USE SUPERVISOR ANODIZING NO [facility] Sep 25, 2017 04:04 PM VA-TOBACCO USE MED NO [facility] [place] Sep 25, 2017 04:04 PM VA-TOBACCO USE [place] 30 MIN OF [facility] Sep 25, 2017 04:04 PM VA-TOBACCO USER EVERY DAY [facility] Sep 20, 2017 12:35 PM HF.TOBACCO COUNSELING REFUSED [facility] Jul 11, 2017 01:33 PM HF.TOBACCO COUNSELING REFUSED [facility] Jul 11, 2017 01:33 PM TOBACCO CESSATION MEDS REFUSED [facility] Jul 11, 2017 01:33 PM TOBACCO CESSATION REFERRAL REFUSED [facility] Jul 11, 2017 01:33 PM TOBACCO OFFERRED STOP SMOKING CLINIC [facility] May 05, 2017 08:20 AM HF.TOBACCO COUNSELING REFUSED [facility] Feb 01, 2017 01:03 PM HF.TOBACCO COUNSELING REFUSED [facility] Aug 29, 2016 08:43 AM HF.TOBACCO COUNSELING REFUSED 2 pk/day declined ( does not wnat to quit) [facility] Aug 29, 2016 08:43 AM TOBACCO CESSATION MEDS REFUSED [facility] Aug 29, 2016 08:43 AM TOBACCO CESSATION REFERRAL REFUSED [facility] Aug 29, 2016 08:43 AM TOBACCO OFFERRED STOP SMOKING CLINIC [facility] May 23, 2016 09:59 AM HF.TOBACCO COUNSELING REFUSED [facility] Feb 29, 2016 09:30 AM HF.TOBACCO COUNSELING REFUSED [facility] Aug 26, 2015 06:35 AM HF.TOBACCO COUNSELING REFUSED [facility] Aug 26, 2015 06:35 AM TOBACCO CESSATION MEDS REFUSED [facility] Aug 26, 2015 06:35 AM TOBACCO CESSATION REFERRAL REFUSED [facility] Aug 26, 2015 06:35 AM TOBACCO OFFERRED PT MEDS (PROVIDER) [facility] Aug 26, 2015 06:35 AM TOBACCO OFFERRED STOP SMOKING CLINIC [facility] Advance Directives: All historical and current [...] August 13, 2013 ADVANCE DIRECTIVE MARITA SANDERS [facility] Oct 13, 1998 ADVANCE DIRECTIVE Jessica YOST Louann [facility] Mar 14, 1994 ADVANCE DIRECTIVE YUMIKO HOLMAN [facility] Encounter Notes: All associated encounter notes This section contains the clinical notes associated to the Encounter. Date/Time Encounter Note(s) Provider Source Jan 16, 2024 11:17 AM PRIMARY CARE NOTE: LOCAL TITLE: [facility] STANDARD TITLE: PRIMARY CARE NOTE DATE OF NOTE: JAN 16, 2024@11:17 ENTRY DATE: JAN 16, 2024@11:17:52 AUTHOR: DRE CONTERRAS EXP COSIGNER: URGENCY: STATUS: COMPLETED CHIEF COMPLAINT: [...] bigger. Was advised to go to ER. [place] contacted [place] and was given two antibiotics and cyst, [...] M.D. M.D. Signed: 01/16/2024 11:[address] [facility] Jan 16, 2024 10:55 AM NURSING NOTE: LOCAL TITLE: JANEY/PREVMED STANDARD TITLE: NURSING NOTE DATE OF NOTE: JAN 16, 2024@10:55 ENTRY DATE: JAN 16, 2024@10:55:33 AUTHOR: ZACK HOOKER EXP COSIGNER: URGENCY: STATUS: COMPLETED TWO OR MORE PATIENT IDENTIFIERS REQUIRED FULL NAME SS NUMBER Date here for follow up after ER visit for growing cyst [place] contacted [place] and was given two antibiotics and cyst, which is located on left side of groin area 22 cm wide x 40 cm long; became larger and went to ER; ER gave IV vancomycin and was dehydrated; went home and later that night cyst burst, and had brownish, gel-like fluid; cyst is still painful; did have slight temperature but is no afebrile. PCP: [place] Specialists: podiatry, prosthetics, orthopedics, cardiovascular Influenza Immunization: Deferral / Refusal The patient declines to receive the recommended dose of seasonal influenza vaccine. Immunization: INFLUENZA, UNSPECIFIED FORMULATION Refusal Reason: PATIENT DECISION Patient refuses all immunization(s) in the FLU group Date Documented: 01/16/24 11:16 RHS Screen: RHS Screen Environmental Check Screening was not completed at this time due to: Other: declined /es/ ZACK HOOKER php mysql developer Signed: 01/16/2024 11:[address] [facility]
--- OUTSIDE RECORDS SUMMARY | 2024-11-05 15:54 | XMS_ITS | Encounter Summary ---
Author Name Department of [facility] ([place]) Organization Department of [facility] ([place]) Address [address] [place] [address] Care Team Providers Care Drying Machine Operator Name Role Phone DRE CONTRERAS Primary Care Provider Unavailabl e Selected Encounter This section includes the information on record at [place] for the Encounter. Date/Time Encounter Type Encounter Description Reason Provider Source Nov 14, 2023 11:30 AM OFFICE O/P EST MOD 30 MIN PRIMARY CARE/MEDICINE ICD-10-CM M65.331 Trigger finger, right middle finger DRE CONTRERAS Manjinder Encounter Template Text not used by [place] Assessments - Encounter Diagnoses This section includes the primary and secondary diagnoses documented for the Encounter. Date/Time Primary/Secondary Diagnosis Diagnosis Name Provider Source Nov 14, 2023 12:11 PM PRIMARY Trigger finger, right middle finger DRE CONTRERAS [facility] Nov 14, 2023 12:11 PM SECONDARY Benign prostatic hyperplasia without lower urinry tract symp [facility] Nov 14, 2023 12:11 PM SECONDARY Chronic ischemic heart disease, unspecified [facility] Nov 14, 2023 12:11 PM SECONDARY Chronic kidney disease, unspecified [facility] Nov 14, 2023 12:11 PM SECONDARY Chronic obstructive pulmonary disease, unspecified [facility] Nov 14, 2023 12:11 PM SECONDARY Essential (primary) hypertension [facility] Nov 14, 2023 12:11 PM SECONDARY Gastro-esophageal reflux disease without esophagitis [facility] Nov 14, 2023 12:11 PM SECONDARY Hyperlipidemia, unspecified [facility] Nov 14, 2023 12:11 PM SECONDARY Iron deficiency anemia, unspecified [facility] Nov 14, 2023 12:11 PM SECONDARY Polyp of colon [facility] Nov 14, 2023 12:11 PM SECONDARY Re-entry ventricular arrhythmia [facility] Nov 14, 2023 12:11 PM SECONDARY Sleep related leg cramps [facility] Nov 14, 2023 12:11 PM SECONDARY Type 2 diabetes mellitus without complications [facility] Nov 14, 2023 12:11 PM SECONDARY 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 This section includes future appointments and future orders which are active, pending or scheduled. Future Appointments This section includes appointments that were scheduled to occur 6 months from the date of the Encounter, up to a maximum of 20 appointments. The data comes from all [place] [facility]. Appointment Date/Time Appointment Type Appointme nt Facility Name Dec 18, 2023 11:30 AM AMBULATORY - NONE [facility] Jan 02, 2024 02:30 PM AMBULATORY - SURGERY [facility] Jan 02, 2024 02:35 PM AMBULATORY - NONE [facility] Jan 08, 2024 04:00 PM AMBULATORY - MEDICINE [facility] Jan 16, 2024 11:00 AM AMBULATORY - MEDICINE [facility] Jan 17, 2024 02:30 PM AMBULATORY - MEDICINE [facility] Jan 22, 2024 09:00 AM AMBULATORY - NONE [facility] Jan 23, 2024 09:30 AM AMBULATORY - NONE [facility] Jan 31, 2024 08:00 AM AMBULATORY - NONE [facility] Feb 16, 2024 01:00 PM AMBULATORY - NONE [facility] Feb 19, 2024 02:15 AM AMBULATORY - NONE [facility] Feb 29, 2024 09:50 AM AMBULATORY - NONE [facility] Mar 07, 2024 10:00 AM AMBULATORY - MEDICINE [facility] Apr 10, 2024 11:30 AM AMBULATORY - SURGERY [facility] Apr 10, 2024 11:35 AM AMBULATORY - NONE [facility] Lab Results: +/- 30 days of the encounter This section includes the Chemistry and Hematology Lab Results on record with [place] for the patient. Radiology Reports and Pathology Reports are provided separately, in subsequent sections. Lab Results This section contains the Chemistry/Hematology Results that were resulted 30 days before or 30 daysafter the date of the Encounter. Date/Time Source Result Type Result - Unit Interpretation Reference Range Specimen Type Comment Nov 14, 2023 12:12 PM [facility] A1C % BLOOD Specimen Type: BLOOD [...] Nov 03, 2023 02:25 PM Reporting Lab: [address] [address] Performing Lab: [address] [address] A1C % 6.3 H 0.0-5.6 Nov 14, 2023 12:12 PM [facility] COMPREHENSIVE PNL PLASMA Specime n Type: PLASMA Comment: eGFR was calculated using the CKD-EPI Creatinine (2020) equation. Ordering Provider: DRE CONTRERAS Report Released Date/Time: Nov 03, 2023 02:25 PM Reporting Lab: [address] [address] Performing Lab: [address] [address] ANION GAP 8 mmol/L 5-15 EGFR 63 [...] H 0.67-1.17 Nov 14, 2023 12:12 PM [facility] CBC W/DIFF BLOOD Specimen T ype: BLOOD No comment entered. Ordering Provider: DRE CONTRERAS Report Released Date/Time: Nov 03, 2023 02:25 PM Reporting Lab: [address] [address] Performing Lab: [address] [address] WBC 7.6 10*3/uL 4.0-11.0 RBC 4.04 10*6/uL [...] 60 115/48 16 94 3 245.3 37 [facility] Social History: Smoking Status (Most current) and Tobacco Use (All prior to encounter date) This section includes the most current, and the historical, smoking and tobacco- related health factors from the [place] facility where the Encounter took place. Current Smoking Status This section includes the most current smoking, or tobacco-related health factor, from the [place] facility where the Encounter took place. Date/Time Current Smoking Status Comment Facil [facility] Sep 08, 2023 10:30 AM VA-TOBACCO USER EVERY DAY [facility] Tobacco Use History This section includes a history of the smoking, or tobacco-related health factors, that were collected on or before the date of the Encounter. The data comes from the [place] facility where the Encounter took place. Date/Time Smoking Status/Tobac co Use Comment Facility Sep 08, 2023 10:30 AM VA-TOBACCO USE ADVICE [facility] Sep 08, 2023 10:30 AM VA-TOBACCO USE ENVIRONMENTAL AIDE NO [facility] Sep 08, 2023 10:30 AM VA-TOBACCO USE MED [facility] Sep 08, 2023 10:30 AM VA-TOBACCO USE WI 30 MIN OF [facility] Sep 08, 2023 10:30 AM VA-TOBACCO USER EVERY DAY [facility] August 23, 2022 08:30 AM VA-TOBACCO USE 30 YEARS OR MORE [facility] August 23, 2022 08:30 AM VA-TOBACCO USE ADVICE [facility] August 23, 2022 08:30 AM VA-TOBACCO USE ENVIRONMENTAL AIDE NO [facility] August 23, 2022 08:30 AM VA-TOBACCO USE MED [facility] August 23, 2022 08:30 AM VA-TOBACCO USE WI 30 MIN OF AX[place] [facility] August 23, 2022 08:30 AM VA-TOBACCO USER EVERY DAY [facility] May 07, 2021 10:00 AM VA-TOBACCO USE 30 YEARS OR MORE [facility] May 07, 2021 10:00 AM VA-TOBACCO USE ADVICE [facility] May 07, 2021 10:00 AM VA-TOBACCO USE ENVIRONMENTAL AIDE NO [facility] May 07, 2021 10:00 AM VA-TOBACCO USE MED NO [facility] May 07, 2021 10:00 AM VA-TOBACCO USE [place] 30 MIN OF [facility] May 07, 2021 10:00 AM VA-TOBACCO USER EVERY DAY [facility] May 07, 2020 01:00 PM VA-TOBACCO USE 30 YEARS OR MORE [facility] May 07, 2020 01:00 PM VA-TOBACCO USE ADVICE [facility] May 07, 2020 01:00 PM VA-TOBACCO USE ENVIRONMENTAL AIDE NO [facility] May 07, 2020 01:00 PM VA-TOBACCO USE MED NO [facility] May 07, 2020 01:00 PM VA-TOBACCO USE WI 30 MIN OF [facility] May 07, 2020 01:00 PM VA-TOBACCO USER EVERY DAY [facility] Feb 13, 2019 11:11 AM VA-TOBACCO USE 30 YEARS OR MORE [facility] Feb 13, 2019 11:11 AM VA-TOBACCO USE ADVICE [facility] Feb 13, 2019 11:11 AM VA-TOBACCO USE ENVIRONMENTAL AIDE NO [facility] Feb 13, 2019 11:11 AM VA-TOBACCO USE MED [facility] Feb 13, 2019 11:11 AM VA-TOBACCO USE [place] 30 MIN OF [facility] Feb 13, 2019 11:11 AM VA-TOBACCO USER EVERY DAY [facility] Sep 25, 2017 04:04 PM VA-TOBACCO USE 30 YEARS OR MORE [facility] Sep 25, 2017 04:04 PM VA-TOBACCO USE ADVICE [facility] Sep 25, 2017 04:04 PM VA-TOBACCO USE ENVIRONMENTAL AIDE NO [facility] Sep 25, 2017 04:04 PM VA-TOBACCO USE MED NO [facility] Sep 25, 2017 04:04 PM VA-TOBACCO USE [place] 30 MIN OF [facility] Sep 25, 2017 04:04 PM VA-TOBACCO [...] 2015 06:35 AM TOBACCO OFFERRED STOP SMOKING [facility] Advance Directives: All historical and current Section [...] Oct 13, 1998 ADVANCE DIRECTIVE Jessica YOST [facility] Mar 14, 1995 ADVANCE [...] Proposed anesthesia: genreral Fax number for H&P: [phone] Here today for preop H&P for right [...] do above Non-VA provider(s): ortho, card, pulm, machine sprayer, renal, PAST SURGICAL HISTORY: 1. heart cath [...] [facility] SPIRONOLACTONE [facility] FERROUS SULFATE [facility] ROSUVASTATIN [facility] SIMVASTATIN MRR1 - Med Reconciliation INCLUDED IN THIS LIST: Alphabetical list of active outpatient prescriptions dispensed from this [place] (local) and dispensed from another [place] or [facility] facility (remote) as well as inpatient orders (local pending and active), local clinic medications, locally documented non-VA medications, and local prescriptions that have or been discontinued in the past 90 days. Non-VA Meds Last Documented On: May 15, 2019 NOTE The display of VA prescriptions dispensed from another [place] or [facility]D facility (remote) is limited to active outpatient prescription entries matched to National Drug File at the originating site and may not include some items such as investigational drugs, compounds, etc. NOT INCLUDED IN THIS LIST: Medications self-entered by the patient into personal health records (i.e. [employer]) are NOT included in this list. Non-VA medications documented outside this DE, remote inpatient orders (regardless of status) and [...] DAY FROM ANY AND ALL SOURCES Rx# [id number] Last Released: 07/26/23 Qty/Days Supply: 100 Rx Expiration Date: 08/27/23 Refills Remainin OUTPT ACETAMINOPHEN 500MG TAB (Status = Active) TAKE TWO TABLETS BY MOUTH TWICE A DAY FOR PAIN OR FEVER - DO NOT EXCEED 4000MG OF ACETAMINOPHEN (APAP) PER DAY FROM ANY AND ALL SOURCES Rx# [id number] Last Released: 09/11/23 Qty/Days Supply: 10030 Rx Expiration Date: 09/08/24 Refills Remainin OUTPT ALBUTEROL 90MCG (CFC-F) 200D ORAL INHL (Status = Active) INHALE 2 PUFFS BY MOUTH FOUR TIMES A DAY NEEDED FOR BREATHING Rx# [id number] Last Released: 09/11/23 Qty/Days Supply: 04/25 Rx Expiration Date: 09/08/24 Refills Remainin OUTPT ALBUTEROL SULF 0.083% INHL 3ML (Status = Active) INHALE 3 ML VIA NEBULIZER BY ORAL NEBULIZATION FOUR TIMES A DAY NEEDED Rx# [id number] Last Released: 07/25/23 Qty/Days Supply: Rx Expiration Date: 07/21/24 Refills Remainin Indication: FOR SHORTNESS OF BREATH OUTPT ALUMINUM HYDROXIDE GEL 320MG/5ML SUSP (Status = Active) TAKE 15 ML BY MOUTH FOUR TIMES A DAY NEEDED FOR STOMACH ACID Rx# [id number] Last Released: 07/24/23 Qty/Days Supply: Rx Expiration Date: 07/21/24 Refills Remainin OUTPT AMIODARONE HCL (PACERONE) 200MG TAB (Status = Discontinued) TAKE ONE TABLET BY MOUTH DAILY FOR HEART Rx# [id number] Last Released: 08/17/23 Qty/Days Supply: Rx Expiration Date: 10/19/23 Refills Remainin OUTPT AMIODARONE HCL (PACERONE) 200MG TAB (Status = Active) TAKE ONE TABLET BY MOUTH DAILY FOR HEART Rx# [id number] Last Released: 11/09/23 Qty/Days Supply: Rx Expiration Date: 09/08/24 Refills Remainin OUTPT ASPIRIN 81MG CHEW TAB (Status = Discontinued) CHEW ONE TABLET BY MOUTH EVERY DAY FOR BLOOD THINNER Rx# [id number] Last Released: 09/05/23 Qty/Days Supply: Rx Expiration Date: 10/19/23 Refills Remainin OUTPT ASPIRIN 81MG CHEW TAB (Status = Active/Suspended) CHEW ONE TABLET BY MOUTH EVERY DAY FOR BLOOD THINNER Rx# [id number] Last Released: Qt Supply: Rx Expiration Date: 09/08/24 Refills Remainin OUTPT CETIRIZINE HCL 10MG TAB (Status = Active) TAKE ONE TABLET BY MOUTH EVERY DAY FOR ALLERGIES FOR FLUID BEHIND LEFT EAR. Rx# [id number] Last Released: 03/31/23 Qty/Days Supply: Rx Expiration Date: 03/29/24 Refills Remainin OUTPT CHOLECALCIF 25MCG (D3-1,000UNIT) TAB (Status = Discontinued) TAKE ONE TABLET (1000 UNITS) BY MOUTH DAILY FOR DIETARY SUPPLEMENT Rx# [id number] Last Released: 07/24/23 Qty/Days Supply: Rx Expiration Date: 08/24/23 Refills Remainin Non-VA COENZYME Q10 200MG CAP/TAB TAKE ONE CAPSULE BY MOUTH OUTPT CYCLOBENZAPRINE HCL 10MG TAB (Status = Active) TAKE ONE TABLET BY MOUTH THREE TIMES A DAY NEEDED Rx# [id number] Last Released: 07/24/23 Qty/Days Supply: 60 Rx Expiration Date: 12/03/23 Refills Remainin Indication: FOR MUSCLE SPASM OUTPT DEXTRAN 70/GLYCER 0.2%/HYPROMEL 0.3% OPH (Status = ) INSTILL TWO DROPS BOTH EYES THREE TIMES A DAY NEEDED FOR THE EYE Rx# [id number] Last Released: 07/26/23 Qty/Days Supply: Rx Expiration Date: 09/27/23 Refills Remainin OUTPT DOCUSATE NA 100MG CAP (Status = Active) TAKE ONE CAPSULE BY MOUTH DAILY Rx# [id number] Last Released: 11/02/23 Qty/Days Supply: Rx Expiration Date: 02/21/24 Refills Remainin Indication: FOR STOOL SOFTENER OUTPT DOCUSATE NA 100MG CAP (Status = Pending) TAKE ONE CAPSULE BY MOUTH DAILY Renewed from Rx# [id number] Qty/Days Supply: Login Date: 11/14/23 Refills Ordered: 3 OUTPT DOXAZOSIN MESYLATE 4MG TAB (Status = Active) TAKE ONE TABLET BY MOUTH AT BEDTIME FOR PROSTATE DOSE REDUCTION Rx# [id number] Last Released: 08/14/23 Qty/Days Supply: Rx Expiration Date: 08/09/24 Refills Remainin Indication: FOR PROSTATE OUTPT EZETIMIBE 10MG TAB (Status = Discontinued) TAKE ONE TABLET BY MOUTH EVERY DAY FOR LOWERING CHOLESTEROL Rx# [id number] Last Released: Qt Supply: Rx Expiration Date: 10/19/23 Refills Remainin OUTPT EZETIMIBE 10MG TAB (Status = Active/Suspended) TAKE ONE TABLET BY MOUTH EVERY DAY FOR LOWERING CHOLESTEROL Rx# [id number] Last Released: 09/26/23 Qty/Days Supply: Rx Expiration Date: 09/08/24 Refills Remainin OUTPT FUROSEMIDE 40MG TAB (Status = Discontinued) TAKE ONE TABLET BY MOUTH DAILY FOR BLOOD PRESSURE/WATER PILL Rx# [id number] Last Released: 08/14/23 Qty/Days Supply: Rx Expiration Date: 10/19/23 Refills Remainin OUTPT FUROSEMIDE 40MG TAB (Status = Active) TAKE ONE TABLET BY MOUTH DAILY FOR BLOOD PRESSURE/WATER PILL Rx# [id number] Last Released: 11/02/23 Qty/Days Supply: Rx Expiration Date: 09/08/24 Refills Remainin OUTPT GABAPENTIN 600MG TAB (Status = Active/Suspended) TAKE ONE TABLET BY MOUTH TWICE A DAY FOR PAIN/NEUROPATHY Rx# [id number] Last Released: 09/14/23 Qty/Days Supply: Rx Expiration Date: 07/21/24 Refills Remainin OUTPT LIDOCAINE 5% PATCH (Status = Active) USE 1 PATCH TOPICALLY TO DRY, HAIRLESS AREA ONCE DAILY NEEDED PRESS PATCH ONTO THE SKIN FOR 10-15 SECONDS TO HEAT ACTIVATE THE ADHESIVE. REMOVE PATCH(ES) AFTER 12 HOURS AND LEAVE OFF FOR 12 HOURS. Rx# [id number] Last Released: 02/22/23 Qty/Days Supply: 90/90 Rx Expiration Date: 02/21/24 Refills Remainin Indication: FOR PAIN OUTPT LISINOPRIL 5MG TAB (Status = Discontinued) TAKE ONE TABLET BY MOUTH DAILY FOR BLOOD PRESSURE Rx# [id number] Last Released: 07/24/23 Qty/Days Supply: 90/90 Rx Expiration Date: 08/24/23 Refills Remainin OUTPT LISINOPRIL 5MG TAB (Status = Active) TAKE ONE TABLET BY MOUTH DAILY FOR BLOOD PRESSURE Rx# [id number] Last Released: 10/03/23 Qty/Days Supply: 90/90 Rx Expiration Date: 09/08/24 Refills Remainin OUTPT MAGNESIUM OXIDE 400MG TAB (Status = Discontinued) TAKE ONE TABLET BY MOUTH DAILY WITH FOOD Rx# [id number] Last Released: 07/31/23 Qty/Days Supply: 120/90 Rx Expiration Date: 10/19/23 Refills Remainin Indication: FOR MAGNESIUM REPLACEMENT OUTPT MAGNESIUM OXIDE 400MG TAB (Status = Active) TAKE ONE TABLET BY MOUTH DAILY WITH FOOD Rx# [id number] Last Released: 10/19/23 Qty/Days Supply: 120/90 Rx Expiration Date: 09/08/24 Refills Remainin Indication: FOR MAGNESIUM REPLACEMENT OUTPT MENTHOL/M-SALICYLATE 10-15% TOP CREAM (Status = Active) APPLY SMALL AMOUNT TOPICALLY NEEDED Rx# [id number] Last Released: 07/24/23 Qty/Days Supply: 90 Rx Expiration Date: 02/01/24 Refills Remainin Indication: FOR SORE MUSCLES OR JOINTS OUTPT METOPROLOL SUCCINATE 200MG SA TAB (Status = Discontinued) TAKE ONE-HALF TABLET BY MOUTH EVERY DAY FOR HEART/BLOOD PRESSURE Rx# [id number] Last Released: 07/24/23 Qty/Days Supply: 45/ Rx Expiration Date: 08/24/23 Refills Remainin Indication: FOR BLOOD PRESSURE OUTPT METOPROLOL SUCCINATE 200MG SA TAB (Status = Discontinued) TAKE ONE-HALF TABLET BY MOUTH EVERY DAY FOR HEART/BLOOD PRESSURE Rx# [id number] Last Released: 10/03/23 Qty/Days Supply: 45/ Rx Expiration Date: 09/08/24 Refills Remainin Indication: FOR BLOOD PRESSURE OUTPT METOPROLOL SUCCINATE 50MG SA TAB (Status = Active) TAKE ONE TABLET BY MOUTH EVERY DAY Rx# [id number] Last Released: 10/26/23 Qty/Days Supply: Rx Expiration Date: 08/09/24 Refills Remainin OUTPT MOMETASONE 200MCG/ACTUAT 120D ORAL INHL (Status = Discontinued) INHALE TWO PUFFS BY MOUTH TWICE A DAY RINSE MOUTH AFTER EACH USE Rx# [id number] Last Released: 07/24/23 Qty/Days Supply: 04/25 Rx Expiration Date: 08/24/23 Refills Remainin OUTPT MOMETASONE 200MCG/ACTUAT 120D ORAL INHL (Status = Active) INHALE TWO PUFFS BY MOUTH TWICE A DAY RINSE MOUTH AFTER EACH USE Rx# [id number] Last Released: 10/26/23 Qty/Days Supply: 04/25 Rx Expiration Date: 09/08/24 Refills Remainin OUTPT MONTELUKAST NA 10MG TAB (Status = Active) TAKE ONE TABLET BY MOUTH AT BEDTIME Rx# [id number] Last Released: 11/02/23 Qty/Days Supply: Rx Expiration Date: 07/21/24 Refills Remainin OUTPT MONTELUKAST NA 10MG TAB (Status = Pending) TAKE ONE TABLET BY MOUTH AT BEDTIME Renewed from Rx# [id number] Qty/Days Supply: Login Date: 11/14/23 Refills Ordered: 3 OUTPT MULTIVITAMIN CAP/TAB (Status = Discontinued) TAKE 1 CAP/TAB BY MOUTH DAILY SUPPLEMENT Rx# [id number] Last Released: 07/24/23 Qty/Days Supply: Rx Expiration Date: 08/24/23 Refills Remainin OUTPT MULTIVITAMIN CAP/TAB (Status = Active) TAKE 1 CAP/TAB BY MOUTH DAILY SUPPLEMENT Rx# [id number] Last Released: 10/04/23 Qty/Days Supply: Rx Expiration Date: 09/08/24 Refills Remainin OUTPT NITROGLYCERIN (EQ-NITROSTAT) 0.4MG SL TB (Status = ) DISSOLVE ONE TABLET UNDER THE TONGUE EVERY 5 MINUTES NEEDED FOR CHEST PAIN. IF NO IMPROVEMENT AFTER THREE DOSES GO TO NEAREST EMERGENCY ROOM. DISCARD OPENED BOTTLE AFTER 6 MONTHS Rx# [id number] Last Released: 10/02/23 Qty/Days Supply: 100/30 Rx Expiration Date: 09/27/23 Refills Remainin Indication: FOR CHEST PAIN OUTPT OLODATEROL/TIOTROP 2.5MCG/ACTUAT 60D INH (Status = Active) INHALE 2 PUFFS BY MOUTH EVERY DAY START USING AFTER FINISHING THE TRELEGY SAMPLES PER PROVIDER Rx# [id number] Last Released: 10/26/23 Qty/Days Supply: Rx Expiration Date: 02/21/24 Refills Remainin OUTPT OMEPRAZOLE 40MG EC CAP (Status = Active) TAKE ONE CAPSULE BY MOUTH EVERY MORNING 30 MINUTES BEFORE BREAKFAST Rx# [id number] Last Released: 07/24/23 Qty/Days Supply: Rx Expiration Date: 02/21/24 Refills Remainin Indication: FOR STOMACH ACID OUTPT PRAVASTATIN NA 20MG TAB (Status = Discontinued) TAKE ONE-HALF TABLET BY MOUTH SUNDAYS, MONDAYS, WEDNESDAYS AND FRIDAYS FOR CHOLESTEROL. CALL YOUR PROVIDER IF YOU HAVE MUSCLE PAIN, TENDERNESS OR WEAKNESS Rx# [id number] Last Released: 07/24/23 Qty/Days Supply: Rx Expiration Date: 08/24/23 Refills Remainin Indication: FOR CHOLESTEROL OUTPT PRAVASTATIN NA 20MG TAB (Status = Active) TAKE ONE-HALF TABLET BY MOUTH SUNDAYS, MONDAYS, WEDNESDAYS AND FRIDAYS FOR CHOLESTEROL. CALL YOUR PROVIDER IF YOU HAVE MUSCLE PAIN, TENDERNESS OR WEAKNESS Rx# [id number] Last Released: 10/03/23 Qty/Days Supply: Rx Expiration Date: 09/08/24 Refills Remainin Indication: FOR CHOLESTEROL OUTPT TERBINAFINE HCL 250MG TAB (Status = Active) TAKE ONE TABLET BY MOUTH DAILY Rx# [id number] Last Released: 05/16/23 Qty/Days Supply: Rx Expiration Date: 04/03/24 Refills Remainin Indication: FOR FUNGAL INFECTION OUTPT TOLNAFTATE 1% TOP PWD (Status = Active) APPLY SUFFICIENT QUANTITY TOPICALLY DAILY Rx# [id number] Last Released: 02/01/23 Qty/Days Supply: 45 Rx Expiration Date: 02/01/24 Refills Remainin Indication: FOR FUNGAL INFECTION OF THE SKIN OUTPT VITAMIN B COMPLEX CAP (Status = Discontinued) TAKE ONE CAPSULE BY MOUTH DAILY Rx# [id number] Last Released: 07/24/23 Qty/Days Supply: 100/90 Rx Expiration Date: 08/24/23 Refills Remainin OUTPT VITAMIN B COMPLEX CAP (Status = Active) TAKE ONE CAPSULE BY MOUTH DAILY Rx# [id number] Last Released: 10/03/23 Qty/Days Supply: 100/90 Rx Expiration Date: 09/08/24 Refills Remainin SUPPLIES OUTPT ACCU-CHEK GUIDE (GLUCOSE) TEST STRIP (Status = Active) USE ONE STRIP THREE TIMES WEEKLY FOR BLOOD GLUCOSE MONITORING (STORE IN ORIGINAL BOTTLE WITH LID ON AT ALL TIMES) Rx# [id number] Last Released: 07/26/23 Qty/Days Supply: 50/30 Rx Expiration Date: 12/03/23 Refills Remainin OUTPT ALCOHOL PREP PAD (Status = Active) USE PAD TO SUPPLY DIRECTED Rx# [id number] Last Released: 07/26/23 Qty/Days Supply: 200/30 Rx Expiration Date: 12/03/23 Refills Remainin Potential risks, benefits, and alternative to medications prescribed were discussed with /caregiver who was given an opportunity to ask questions, which were answered to the best of my ability and seemingly to their satisfaction. [place]/caregiver was/were instructed to contact provider (means provided) with any concerns or questions. A list of reconciled medications was provided to the /caregiver. /loli/ Dre Contreras M.D. M.D. Signed: 11/14/2023 12:11 DRE CONTRERAS [facility] Nov 14, 2023 11:18 AM NURSING NOTE: LOCAL TITLE: JANEY/PREVMED STANDARD TITLE: NURSING NOTE DATE OF NOTE: NOV 14, 2023@11:18 ENTRY DATE: NOV 14, 2023@11:18:14 AUTHOR: ZACK HOOKER EXP COSIGNER: URGENCY: STATUS: COMPLETED TWO OR MORE PATIENT IDENTIFIERS REQUIRED FULL NAME SS NUMBER Date [place] here for H & P for Surgery: Right 3rd trigger finger release. Location: [facility] Date: 11/22/2023 PCP: [place] Specialists: podiatry, prosthetics, orthopedics, cardiology EKG performed [...] HOOKER lpn Signed: 11/14/2023 11:43 ZACK HOOKER [facility]
--- OUTSIDE RECORDS SUMMARY | 2024-11-05 15:55 | XMS_ITS | Encounter Summary ---
Author Name [facility] [place] Organization [place] Address [address] [place] [address] Care Team Providers Care Cable Splicing Technician Name Role Phone BEN DANNY Primary Care [...] 02:35 PM PRIMARY Other specified counseling ABDOUL AGY [facility] Plan of Treatment: Future Appointments [...] 04:00 PM AMBULATORY - MEDICINE [facility] Jan 16, 2024 11:00 AM AMBULATORY - MEDICINE [facility] Jan 17, 2024 02:30 PM AMBULATORY - MEDICINE [facility] Jan 22, 2024 09:00 AM AMBULATORY - NONE [facility] Jan 23, 2024 09:30 AM AMBULATORY - NONE [facility] Jan 31, 2024 08:00 AM AMBULATORY - NONE [facility] Feb 16, 2024 01:00 PM AMBULATORY - NONE [facility] Feb 19, 2024 02:15 AM AMBULATORY - NONE [facility] Feb 29, 2024 09:50 AM AMBULATORY - NONE [facility] Mar 07, 2024 10:00 AM [facility] Apr 10, 2024 11:30 AM AMBULATORY - SURGERY [facility] Apr 10, 2024 11:35 AM AMBULATORY - NONE [facility] Jun 17, 2024 10:00 AM AMBULATORY - NONE [facility] Jun 19, 2024 01:30 PM AMBULATORY - MEDICINE [facility] Social History: Smoking Status (Most current) [...] took place. 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 NO [facility] Sep 08, 2023 10:30 AM VA-TOBACCO USE MED NO [facility] [place] Sep 08, 2023 10:30 AM VA-TOBACCO USE [place] 30 MIN OF [facility] Sep 08, 2023 10:30 AM VA-TOBACCO USER EVERY DAY [facility] August 23, 2022 08:30 AM VA-TOBACCO USE 30 YEARS OR MORE [facility] August 23, 2022 08:30 AM VA-TOBACCO USE ADVICE [facility] [place] August 23, 2022 08:30 AM VA-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 USE 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 DESIGNER/CREATIVE DIRECTOR NO [facility] August 23, 2022 08:30 AM VA-TOBACCO USE MED NO [facility] [place] August 23, 2022 08:30 AM VA-TOBACCO USE WI 30 MIN OF [facility] August 23, 2022 08:30 AM VA-TOBACCO USER EVERY DAY [facility] May 07, 2021 10:00 AM VA-TOBACCO USE 30 YEARS OR MORE [facility] May 07, 2021 10:00 AM VA-TOBACCO USE ADVICE [facility] [place] May 07, 2021 10:00 AM VA-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 USE GAME DESIGNER/CREATIVE DIRECTOR [facility] May 07, 2021 10:00 AM VA-TOBACCO USE MED [facility] [place] May 07, 2021 10:00 AM VA-TOBACCO USE WI 30 MIN OF [facility] May 07, 2021 10:00 AM VA-TOBACCO USER EVERY DAY [facility] May 07, 2020 01:00 PM VA-TOBACCO USE 30 YEARS OR MORE [facility] May 07, 2020 01:00 PM VA-TOBACCO USE ADVICE [facility] [place] May 07, 2020 01:00 PM VA-TOBACCO USE GAME DESIGNER/CREATIVE DIRECTOR NO [facility] May 07, 2020 01:00 PM VA-TOBACCO USE MED [facility] [place] May 07, 2020 01:00 PM VA-TOBACCO USE WI 30 MIN OF [facility] May 07, 2020 01:00 PM VA-TOBACCO USER EVERY DAY [facility] Feb 13, 2019 11:11 AM VA-TOBACCO USE 30 YEARS OR MORE [facility] Feb 13, 2019 11:11 AM VA-TOBACCO USE ADVICE [facility] [place] Feb 13, 2019 11:11 AM VA-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 USE GAME DESIGNER/CREATIVE DIRECTOR NO [facility] Feb 13, 2019 11:11 AM VA-TOBACCO USE MED NO [facility] [place] Feb 13, 2019 11:11 AM VA-TOBACCO USE [place] 30 MIN OF [facility] Feb 13, 2019 11:11 AM VA-TOBACCO USER EVERY DAY [facility] Sep 25, 2017 04:04 PM VA-TOBACCO USE 30 YEARS OR MORE [facility] Sep 25, 2017 04:04 PM VA-TOBACCO USE ADVICE [facility] [place] Sep 25, 2017 04:04 PM VA-TOBACCO USE GAME DESIGNER/CREATIVE DIRECTOR NO [facility] Sep 25, 2017 04:04 PM VA-TOBACCO USE MED NO [facility] Sep 25, 2017 04:04 PM VA-TOBACCO USE WI 30 MIN OF WAKEUP [facility] Sep 25, 2017 04:04 PM VA-TOBACCO USER EVERY DAY [facility] Sep 20, 2017 12:35 PM HF.TOBACCO COUNSELING REFUSED [facility] Jul 11, 2017 01:33 PM HF.TOBACCO COUNSELING REFUSED [facility] Jul 11, 2017 01:33 PM TOBACCO CESSATION MEDS REFUSED [facility] Jul 11, 2017 01:33 PM TOBACCO CESSATION REFERRAL REFUSED [facility] Jul 11, 2017 01:33 PM TOBACCO OFFERRED STOP SMOKING CLINIC [facility] May 05, 2017 08:20 AM HF.TOBACCO COUNSELING REFUSED [facility] Feb 01, 2017 01:03 PM HF.TOBACCO COUNSELING REFUSED [facility] Aug 29, 2016 08:43 AM HF.TOBACCO COUNSELING REFUSED 2 pk/day declined ( does not wnat to quit) [facility] Aug 29, 2016 08:43 AM TOBACCO CESSATION MEDS REFUSED [facility] Aug 29, 2016 08:43 AM TOBACCO CESSATION REFERRAL REFUSED [facility] Aug 29, 2016 08:43 AM TOBACCO OFFERRED STOP SMOKING CLINIC [facility] May 23, 2016 09:59 AM HF.TOBACCO COUNSELING REFUSED [facility] Feb 29, 2016 09:30 AM HF.TOBACCO COUNSELING REFUSED [facility] Aug 26, 2015 06:35 AM HF.TOBACCO COUNSELING REFUSED [facility] Aug 26, 2015 06:35 AM TOBACCO CESSATION MEDS REFUSED [facility] Aug 26, 2015 06:35 AM TOBACCO CESSATION REFERRAL REFUSED [facility] Aug 26, 2015 06:35 AM TOBACCO OFFERRED PT MEDS (PROVIDER) [facility] Aug 26, 2015 06:35 AM TOBACCO OFFERRED STOP SMOKING CLINIC [facility] Advance Directives: All historical and [...] August 13, 2013 ADVANCE DIRECTIVE MARITA SANDERS [facility] Oct 13, 1998 ADVANCE DIRECTIVE Jessica YOST Louann [facility] Mar 14, 1994 ADVANCE DIRECTIVE YUMIKO HOLMAN Angel [facility] Encounter Notes: All associated encounter notes [...] done through clinical video Telehealth with [facility] [place]. Please refer to Provider note for details of this encounter. next scheduled 04/10/24 @ 1130 . Will inform the Manager Ccu /loli/ LIN GAY LPN Signed: 01/02/2024 14:41 LIN GAY [facility]
--- OUTSIDE RECORDS SUMMARY | 2024-11-05 15:55 | XMS_ITS | Encounter Summary ---
Author Name [facility] [place] Address [address] [place] [address] Care Team Providers Care Neonatal Doctor Name Role Phone DANNY CONTRERAS Primary Care Provider Unavailabl e Selected Encounter This section includes the information on record at [place] for the Encounter. Date/Time Encounter Type Encounter Description Reason Provider Source Jul 03, 2024 09:30 AM TRIM NAIL(S) ANY NUMBER PODIATRY ICD-10-CM Z71.89 Other specified counseling ROSALVA LI [facility] Encounter Template Text not used by [place] Assessments - Encounter Diagnoses This section includes the primary and secondary diagnoses documented for the Encounter. Date/Time Primary/Secondary Diagnosis Diagnosis Name Provider Source Jul 03, 2024 02:56 PM PRIMARY Other specified counseling ROSALVA LI [facility] Plan of Treatment: Future Appointments (+ 6 months) and Future Tests (+/- 45 days) The Plan of Treatment section includes future care activities for the patient from all [place] treatmentfacilities. This section includes future appointments and future orders which are active, pending or scheduled. Future Appointments This section includes appointments that were scheduled to occur 6 months from the date of the Encounter, up to a maximum of 20 appointments. The data comes from all [place] treatment facilities. Appointment Date/Time Appointment Type Appointme nt Facility Name Jul 16, 2024 10:15 AM AMBULATORY - NONE [facility] August 14, 2024 10:30 AM AMBULATORY - NONE [facility] August 22, 2024 08:30 AM AMBULATORY - NONE [facility] Aug 27, 2024 09:10 AM AMBULATORY - NONE [facility] Aug 27, 2024 01:00 PM AMBULATORY - REHAB MEDICIN E [facility] Sep 05, 2024 09:30 AM [facility] Sep 09, 2024 10:30 AM AMBULATORY - NONE [facility] [facility] Sep 10, 2024 09:45 AM AMBULATORY - NONE [facility] [facility] Oct 02, 2024 11:00 AM AMBULATORY - NONE [facility] Oct 11, 2024 08:30 AM [facility] Oct 21, 2024 10:00 AM AMBULATORY - NONE [facility] Oct 23, 2024 10:00 AM [facility] Oct 23, 2024 10:05 AM AMBULATORY - NONE [facility] Nov 06, 2024 08:30 AM AMBULATORY - NONE [facility] Nov 28, 2024 09:30 AM AMBULATORY - NONE [facility] Social History: Smoking Status (Most current) and Tobacco Use (All prior to encounter date) This section includes the most current, and the historical, smoking and tobacco- related health factors from the [place] facility where the Encounter took place. Current Smoking Status This section includes the most current smoking, or tobacco-related health factor, from the [place] facility where the Encounter took place. Date/Time Current Smoking Status Comment Melissa corbin Sep 08, 2023 10:30 AM VA-TOBACCO USER EVERY DAY [facility] Tobacco Use History This section includes a history of the smoking, or tobacco-related health factors, that were collected on or before the date of the Encounter. The data comes from the [place] facility where the Encounter took place. Date/Time Smoking Status/Tobac co Use Comment Facility Sep 08, 2023 10:30 AM VA-TOBACCO USE ADVICE [facility] [place] Sep 08, 2023 10:30 AM VA-TOBACCO USE SPANISH TUTOR NO [facility] Sep 08, 2023 10:30 AM VA-TOBACCO USE MED NO [facility] Sep 08, 2023 10:30 AM VA-TOBACCO USE WI 30 MIN OF WAKEUP [facility] Sep 08, 2023 10:30 AM VA-TOBACCO USER EVERY DAY [facility] August 23, 2022 08:30 AM VA-TOBACCO USE 30 YEARS OR MORE [facility] August 23, 2022 08:30 AM VA-TOBACCO USE ADVICE [facility] [place] August 23, 2022 08:30 AM VA-TOBACCO USE SPANISH TUTOR NO [facility] August 23, 2022 08:30 AM VA-TOBACCO USE MED NO [facility] August 23, 2022 08:30 AM VA-TOBACCO USE [place] 30 MIN OF [facility] August 23, 2022 08:30 AM VA-TOBACCO USER EVERY DAY [facility] May 07, 2021 10:00 AM VA-TOBACCO USE 30 YEARS OR MORE [facility] May 07, 2021 10:00 AM VA-TOBACCO USE ADVICE [facility] [place] May 07, 2021 10:00 AM VA-TOBACCO USE SPANISH TUTOR NO [facility] May 07, 2021 10:00 AM VA-TOBACCO USE MED NO [facility] May 07, 2021 10:00 AM VA-TOBACCO USE [place] 30 MIN OF [facility] May 07, 2021 10:00 AM VA-TOBACCO USER EVERY DAY [facility] May 07, 2020 01:00 PM VA-TOBACCO USE 30 YEARS OR MORE [facility] May 07, 2020 01:00 PM VA-TOBACCO USE ADVICE [facility] May 07, 2020 01:00 PM VA-TOBACCO USE SPANISH TUTOR NO [facility] May 07, 2020 01:00 PM VA-TOBACCO USE MED NO [facility] May 07, 2020 01:00 PM VA-TOBACCO USE [place] 30 MIN OF [facility] May 07, 2020 01:00 PM VA-TOBACCO USER EVERY DAY [facility] Feb 13, 2019 11:11 AM VA-TOBACCO USE 30 YEARS OR MORE [facility] Feb 13, 2019 11:11 AM VA-TOBACCO USE ADVICE [facility] Feb 13, 2019 11:11 AM VA-TOBACCO USE SPANISH TUTOR NO [facility] Feb 13, 2019 11:11 AM VA-TOBACCO USE MED NO [facility] Feb 13, 2019 11:11 AM VA-TOBACCO USE [place] 30 MIN OF [facility] Feb 13, 2019 11:11 AM VA-TOBACCO USER EVERY DAY [facility] Sep 25, 2017 04:04 PM VA-TOBACCO USE 30 YEARS OR MORE [facility] Sep 25, 2017 04:04 PM VA-TOBACCO USE ADVICE [facility] Sep 25, 2017 04:04 PM VA-TOBACCO USE SPANISH TUTOR NO [facility] Sep 25, 2017 04:04 PM VA-TOBACCO USE MED NO [facility] Sep 25, 2017 [...] 2015 06:35 AM TOBACCO OFFERRED [facility]KING [facility] Advance Directives: All historical and current Section Date Range: From patient's date of to the date document was created. This section includes ALL of a patient's completed or amended [place] Advance and Rescinded Directives. The entries below indicate that a directive exists for the patient, but an actual copy is not included with this document. The data comes from all [place] facilities. Date Advance Directives Provider Source August 13, 2013 ADVANCE DIRECTIVE MARITA SANDERS [facility] Oct 13, 1998 ADVANCE [address] Jessica YOST [facility] Mar 14, 1994 ADVANCE DIRECTIVE YUMIKO HOLMAN [facility] Encounter Notes: All associated [...] 07/04/2024 10:24 Receipt Acknowledged By: 07/09/2024 06:59 /loli/ CHAPARRO WREN SISAL OPERATOR 07/09/2024 07:54 /es/ ASIA ALEXANDRE ADVANCED SISAL OPERATOR 07/08/2024 15:34 /es/ ANDI GREENE ========= --- Original Document --- 07/03/24 CVT PODIATRY: Patient is here today for scheduled toe nail trim and evaluation by building tech with [facility]. Patient gave verbal consent for [...] - NONE FOUND - 1D level today /es/ Rosalva Li RN RN Signed: 07/03/2024 15:12 LIN GAY [facility] Jul 03, 2024 09:46 AM TELEHEALTH NOTE: LOCAL TITLE: CVT PODIATRY STANDARD TITLE: TELEHEALTH NOTE DATE OF NOTE: JUL 03, 2024@09:46 ENTRY DATE: JUL 03, 2024@09:47:05 AUTHOR: ROSALVA LI EXP COSIGNER: URGENCY: STATUS: COMPLETED CVT PODIATRY Has ADDENDA Patient is here today for scheduled toe nail trim and evaluation by building tech with [facility]. Patient gave verbal consent for [...] CHAPARRO WREN * AWAITING SIGNATURE * ASIA LAEXANDRE * AWAITING SIGNATURE * ANDI GOSS CAROLYNN S [facility]
--- OUTSIDE RECORDS SUMMARY | 2024-11-05 15:55 | XMS_ITS | Encounter Summary ---
Author Name [place] Address [address] [place] [address] Care Team Providers Care Sap Project Manager Name Role Phone DANNY CONTRERAS Primary Care Provider Unavailabl e Selected Encounter This section includes the information on record at [place] for the Encounter. Date/Time Encounter Type Encounter Description Reason Provider Source August 09, 2024 02:15 PM Outpatient Encounter PODIATRY ICD-10-CM E11.40 Type 2 diabetes mellitus with diabetic neuropathy, BURTON Deleon [facility] Encounter Template Text not used by [place] Assessments - Encounter Diagnoses This section includes the primary and secondary diagnoses documented for the Encounter. Date/Time Primary/Secondary Diagnosis Diagnosis Name Provider Source August 11, 2024 07:48 PM PRIMARY Type 2 diabetes mellitus with diabetic neuropathy, LUBA Deleon [facility] Plan of Treatment: Future Appointments (+ [...] 14, 2024 10:30 AM AMBULATORY - NONE [facility] August 22, 2024 08:30 AM AMBULATORY - NONE [facility] Aug 27, 2024 09:10 AM AMBULATORY - NONE [facility] Aug 27, 2024 01:00 PM AMBULATORY - REHAB MEDICIN E [facility] Sep 05, 2024 09:30 AM AMBULATORY - MEDICINE [facility] Sep 09, 2024 10:30 AM [facility] Sep 10, 2024 09:45 AM [facility] Oct 02, 2024 11:00 [facility] Oct 11, 2024 08:30 AM AMBULATORY - MEDICINE [facility] Oct 21, 2024 10:00 AM AMBULATORY - NONE [facility] Oct 23, 2024 10:00 AM AMBULATORY - SURGERY [facility] Oct 23, 2024 10:05 AM AMBULATORY - NONE [facility] Nov 06, 2024 08:30 AM AMBULATORY - NONE [facility] Nov 28, 2024 09:30 AM AMBULATORY - NONE [facility] Jan 21, 2025 10:00 AM AMBULATORY - NONE [facility] Feb 05, 2025 11:30 AM AMBULATORY - SURGERY [facility] Feb 05, 2025 11:35 AM AMBULATORY - NONE [facility] Active, Pending, and Scheduled Orders This section includes a listing of several types of active, pending, and scheduled orders, including clinic medications orders, diagnostic test orders, procedure orders and consult orders; where the start date of the order is 45 days before the date of the Encounter or 45 days after the date of theEncounter. The data comes from all [facility] facilities. Test Date/Time Test Type Test Details Facility Name August 23, 2024 09:56 AM Consult Order [facility]-DERMATOLOGY Cons Recreation Facility Manager's Choice [facility] Lab Results: +/- 30 days of the encounter This section includes the Chemistry and Hematology Lab Results on record with [place] for the patient. Radiology Reports and Pathology Reports are provided separately, in subsequent sections. Lab Results This section contains the Chemistry/Hematology Results that were resulted 30 days before or 30 daysafter the date of the Encounter. Date/Time Source Result Type Result - Unit Interpretation Reference Range Specimen Type Comment Aug 27, 2024 09:21 AM [facility] VITAMIN B12 ([place]) SERUM Specimen Type: SERUM Comment: Methotrexate and Leucovorin (folinic acid) interfere with the measurement of folate. Patients receiving these drugs should not be tested for folate by this method. Ordering Provider: DANNY CONTRERAS Report Released Date/Time: Jun 28, 2024 07:56 AM Reporting Lab: [place] [id number] [facility] [id number] Performing Lab: [facility] [address] [facility] [address] VITAMIN B12 ([place]) 728 pg/mL 193-986 Aug 27, 2024 09:21 AM [facility] FOLATE ([place]) SERUM Specimen T ype: SERUM Comment: Methotrexate and Leucovorin (folinic acid) interfere with the measurement of folate. Patients receiving these drugs should not be tested for folate by this method. Ordering Provider: DANNY CONTRERAS Report Released Date/Time: May 03, 2024 12:41 PM Reporting Lab: [place] [id number] [facility] [address] Performing Lab: [facility] [address] [facility] [address] FOLATE ([place]) >48.00 ng/mL 5.39-48.00 Aug 27, 2024 09:21 AM [facility] FERRITIN ([place]) SERUM Specimen Type: SERUM Comment: Methotrexate and Leucovorin (folinic acid) interfere with the measurement of folate. Patients receiving these drugs should not be tested for folate by this method. Ordering Provider: DANNY CONTRERAS Report Released Date/Time: May 24, 2024 09:08 AM Reporting Lab: [place] [id number] [facility] [address] Performing Lab: [facility] [address] [place] [address] FERRITIN ([place]) 27.9 ng/mL 26.0-388.0 Aug 27, 2024 09:21 AM [facility] A1C % BLOOD Specimen [...] Mar 07, 2024 10:28 AM Reporting Lab: [address] [address] Performing Lab: [address] [address] A1C % 6.2 H 0.0-5.6 Aug 27, 2024 09:21 AM [facility] IRON PANEL SERUM Specimen T ype: SERUM Comment: TIBC may be inaccurate if patient is on iron dextran in the last 14 days. Ordering Provider: DANNY CONTRERAS Report Released Date/Time: Mar 07, 2024 10:32 AM Reporting Lab: [address] [address] Performing Lab: [address] [address] IRON 69 ug/dL 65-175 TOT IRON BINDING CAPAC 395 ug/dL 250-450 % IRON SATURATION 17 10-50 Aug 27, 2024 09:21 AM [facility] COMPREHENSIVE PNL PLASMA Specime n Type: PLASMA Comment: eGFR was calculated using the CKD-EPI Creatinine (2020) equation. Ordering Provider: DANNY CONTRERAS Report Released Date/Time: Mar 07, 2024 10:28 AM Reporting Lab: [address] [address] Performing Lab: [address] [address] ANION GAP 6 mmol/L 5-15 EGFR 54 [...] H 0.73-1.18 Aug 27, 2024 09:21 AM [facility] CBC W/DIFF BLOOD Specimen T ype: BLOOD No comment entered. Ordering Provider: DANNY CONTRERAS Report Released Date/Time: Mar 07, 2024 10:28 AM Reporting Lab: [facility] [address] [facility] [address] Performing Lab: [facility] [address] [facility] [address] WBC 7.6 10*3/uL 4.0-11.0 RBC 4.27 10*6/uL [...] August 13, 2013 ADVANCE DIRECTIVE MARITA SANDERS [facility] Oct 13, 1998 ADVANCE DIRECTIVE Jessica YOST Louann [facility] Mar 14, 1994 ADVANCE DIRECTIVE HOLMNAYUMIKO [facility] Encounter Notes: All [...] qualifying diagnosis must be placed. [employer] SmartMat /es/ Luba Cooney DPM DPM, Dexigraph Operator Signed: 08/11/2024 19:48 LUBA COONEY [facility]
--- OUTSIDE RECORDS SUMMARY | 2024-11-05 15:55 | XMS_ITS | Encounter Summary ---
Author Name [facility] [place] [facility] [place] Organization [facility] [place] [facility] [place] Address [address] [place] [address] Care Team Providers Care Cena Name Role Phone DRE CONTRERAS Primary Care Provider Unavailabl e Selected Encounter This section includes the information on record at [place] for the Encounter. Date/Time Encounter Type Encounter Description Reason Pro vider Source Nov 05, 2024 10:47 AM Outpatient Encounter ADMIN PAT ACTIVTIES (JYOTINONCT) [...] Date/Time Appointment Type Appointme nt Facility Name Nov 06, 2024 08:30 AM AMBULATORY - NONE [facility] Nov 28, 2024 09:30 AM AMBULATORY - NONE [facility] Jan 21, 2025 10:00 AM AMBULATORY - NONE [facility] Feb 05, 2025 11:30 AM AMBULATORY - SURGERY [facility] Feb 05, 2025 11:35 AM AM[facility]ORY - NONE [facility] Feb 27, 2025 09:30 AM AMBULATORY - NONE [facility] Mar 06, 2025 09:30 AM AMBULATORY - MEDICINE [facility] Active, Pending, and Scheduled Orders This section includes a listing of several types of active, pending, and scheduled orders, including clinic medications orders, diagnostic test orders, procedure orders and consult orders; where thestart date of the order is 45 days before the date of the Encounter or 45 days after the date of the Encounter. The data comes from all [place] treatment facilities. Test Date/Time Test Type Test Details Facility Name Oct 03, 2024 01:35 PM Consult Order COMMUNITY CARE-DS ROUTINE OPTOMETRY [employer] [facility] Oct 28, 2024 01:11 PM Consult Order PROSTHETIC S REQUEST - OUTPT [employer] [facility] Oct 30, 2024 12:22 PM Consult Order COMMUNITY CARE-VASCULAR SURGERY [employer] [facility] Advance Directives: All historical and current Section [...] Oct 13, 1998 ADVANCE DIRECTIVE Jessica YOST [facility] Mar 14, 1994 ADVANCE DIRECTIVE YUMIKO HOLMAN [facility] Encounter Notes: All associated encounter notes This section contains the clinical notes associated to the Encounter. Date/Time Encounter Note(s) Provider Source Nov 05, 2024 01:42 PM ADDENDUM: LOCAL TITLE: Addendum STANDARD TITLE: ADDENDUM DATE OF NOTE: NOV 05, 2024@13:42:28 ENTRY DATE: NOV 05, 2024@13:42:29 AUTHOR: CHRISTELLE ACE COSIGNER: URGENCY: STATUS: COMPLETED TWO OR MORE PATIENT IDENTIFIERS REQUIRED FULL NAME SS NUMBER Method of Contact: Phone Call (audio only) Call Initiated:[id number] Reason for Call: follow up Comments:PACT RN contacted [place] to advise of provider recommendations. agreeable and will go to ED. [place] has [facility] number to call. Advised to follow up with PaCT for any further needs. verbalized understanding and had no further questions or concerns. Call Ended: [phone] /loli/ CHRISTELLE ACE RN Signed: 11/05/2024 13:43 Receipt Acknowledged By: 11/05/2024 14: /loli/ Dre Contreras M.D. STAFF PACT PHYSICIAN --- Original Document --- 11/05/24 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/SCHEDULING CALL: RECEIVED FROM [facility] Full ID: ORA DEL TORO RUBEN [id number] Last Name: KATEY First Name: ORA Last Four: [id number] Date of : Reason: Declined Telephone Triage Comment: Patient is reporting he recently was placed on a steroid and a cream for swollen groin area after experiencing an allergic reaction on his 10/21 cardiac cath appointment. At this time patient is reporting that his right testicle has not improved in fact has gotten slightly more swollen, this functional tester typewriters offered caller to speak to Triage with reporting worsening symptom. Caller declined requesting a message be sent to PCP team instead. Right testicle is enlarged more than before he started steroid and cream as well as still experiencing pain in that area. Patient can be reached at and if no answer he requested to call his other number on file as Return Call: Herson villavicencio/ SABRINA CASTRO Advanced Service Person Signed: 11/05/2024 10:47 Receipt Acknowledged By: 11/05/2024 10:53 /zulay ACE RN 11/05/2024 ADDENDUM STATUS: COMPLETED Alerting provider for review and recommendations. /zulay ACE RN Signed: 11/05/2024 10:53 Receipt Acknowledged By: 11/05/2024 10:57 /Esperanza Escobar.D. STAFF PACT PHYSICIAN 11/05/2024 ADDENDUM STATUS: COMPLETED vet needs to go to UC or ER. If enlaerged in groin and had cath, could have hematomoa. Needs to be seen today. Give ER number to call. /loli/ Dre Contreras M.D. STAFF PACT PHYSICIAN Signed: 11/05/2024 10:59 Receipt Acknowledged By: 11/05/2024 13:42 /loli/ CHRISTELLE BAIG RN [facility] Nov 05, 2024 10:58 AM ADDENDUM: LOCAL TITLE: Addendum STANDARD TITLE: ADDENDUM DATE OF NOTE: NOV 05, 2024@10:58:15 ENTRY DATE: NOV 05, 2024@10:58:16 AUTHOR: DRE CONTRERAS EXP COSIGNER: URGENCY: STATUS: COMPLETED vet needs to go to UC or ER. If enlaerged in groin and had cath, could have hematomoa. Needs to be seen today. Give ER number to call. /loli/ Dre Contreras M.D. STAFF PACT PHYSICIAN Signed: 11/05/2024 10:59 Receipt Acknowledged By: 11/05/2024 13:42 /loli/ CHRISTELLE ACE RN --- Original Document --- 11/05/24 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/SCHEDULING CALL: RECEIVED FROM [facility] Full ID: ORA DEL TORO [id number] Last Name: KATEY First Name: ORA Last Four: [id number] Date of : Reason: Declined Telephone Triage Comment: Patient is reporting he recently was placed on a steroid and a cream for swollen groin area after experiencing an allergic reaction on his 10/21 cardiac cath appointment. At this time patient is reporting that his right testicle has not improved in fact has gotten slightly more swollen, this functional tester typewriters offered caller to speak to Triage with reporting worsening symptom. Caller declined requesting a message be sent to PCP team instead. Right testicle is enlarged more than before he started steroid and cream as well as still experiencing pain in that area. Patient can be reached at and if no answer he requested to call his other number on file as Return Call: Herson villavicencio/ SABRINA CASTRO Advanced Service Person Signed: 11/05/2024 10:47 Receipt Acknowledged By: 11/05/2024 10:53 /loli/ CHRISTELLE ACE RN 11/05/2024 ADDENDUM STATUS: COMPLETED Alerting provider for review and recommendations. /zulay ACE RN Signed: 11/05/2024 10:53 Receipt Acknowledged By: 11/05/2024 10:57 /loli/ Dre Contreras M.D. STAFF PACT PHYSICIAN 11/05/2024 ADDENDUM STATUS: UNSIGNED You may not VIEW this UNSIGNED Addendum. DRE CONTRERAS [facility] Nov 05, 2024 10:53 AM ADDENDUM: LOCAL TITLE: Addendum STANDARD TITLE: ADDENDUM DATE OF NOTE: NOV 05, 2024@10:53:24 ENTRY DATE: NOV 05, 2024@10:53:24 AUTHOR: CHRISTELLE ACE EXP COSIGNER: URGENCY: STATUS: COMPLETED Alerting provider for review and recommendations. /zulay ACE RN Signed: 11/05/2024 10:53 Receipt Acknowledged By: 11/05/2024 10:57 /loli/ Dre Contreras M.D. STAFF PACT PHYSICIAN --- Original Document --- 11/05/24 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/SCHEDULING CALL: RECEIVED FROM [facility] Full ID: ORA DEL TORO RUBEN [id number] Last Name: KATEY First Name: ORA Last Four: [id number] Date of : Reason: Declined Telephone Triage Comment: Patient is reporting he recently was placed on a steroid and a cream for swollen groin area after experiencing an allergic reaction on his 10/21 cardiac cath appointment. At this time patient is reporting that his right testicle has not improved in fact has gotten slightly more swollen, this functional tester typewriters offered caller to speak to Triage with reporting worsening symptom. Caller declined requesting a message be sent to PCP team instead. Right testicle is enlarged more than before he started steroid and cream as well as still experiencing pain in that area. Patient can be reached at and if no answer he requested to call his other number on file as Return Call: Herson CASTRO Advanced Service Person Signed: 11/05/2024 10:47 Receipt Acknowledged By: 11/05/2024 10:53 /es/ CHRISTELLE BAIG RN [facility] Nov 05, 2024 10:47 AM PRIMARY CARE ADMIN ISTRATIVE NOTE: LOCAL TITLE: 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/SCHEDULING CALL STANDARD TITLE: PRIMARY CARE 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 NOTE DATE OF NOTE: NOV 05, 2024@10:47 ENTRY DATE: NOV 05, 2024@10:47:17 AUTHOR: SABRINA CASTRO EXP COSIGNER: URGENCY: STATUS: COMPLETED 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/SCHEDULING CALL Has ADDENDA RECEIVED FROM [facility] Full ID: ORA DEL TORO RUBEN [id number] Last Name: KATEY First Name: ORA Last Four: 9419 Date of : Reason: Declined Telephone Triage Comment: Patient is reporting he recently was placed on a steroid and a cream for swollen groin area after experiencing an allergic reaction on his 10/21 cardiac cath appointment. At this time patient is reporting that his right testicle has not improved in fact has gotten slightly more swollen, this functional tester typewriters offered caller to speak to Triage with reporting worsening symptom. Caller declined requesting a message be sent to PCP team instead. Right testicle is enlarged more than before he started steroid and cream as well as still experiencing pain in that area. Patient can be reached at and if no answer he requested to call his other number on file as Return Call: Herson CASTRO Advanced Service Person Signed: 11/05/2024 10:47 Receipt Acknowledged By: 11/05/2024 10:53 /zulay ACE RN 11/05/2024 ADDENDUM STATUS: COMPLETED Alerting provider for review and recommendations. /zulay ACE RN Signed: 11/05/2024 10:53 Receipt Acknowledged By: 11/05/2024 10:57 /loli/ Dre Contreras M.D. STAFF PACT PHYSICIAN 11/05/2024 ADDENDUM STATUS: COMPLETED vet needs to go to UC or ER. If enlaerged in groin and had cath, could have hematomoa. Needs to be seen today. Give ER number to call. /zulay Contreras M.D. STAFF PACT PHYSICIAN Signed: 11/05/2024 10:59 Receipt Acknowledged By: 11/05/2024 13:42 /zulay ACE RN 11/05/2024 ADDENDUM STATUS: COMPLETED TWO OR MORE PATIENT IDENTIFIERS REQUIRED FULL NAME SS NUMBER Method of Contact: Phone Call (audio only) Call Initiated:[id number] Reason for Call: follow up Comments:PACT RN contacted to advise of provider recommendations. agreeable and will go to ED. [place] has [facility] number to call. Advised to follow up with PaCT for any further needs. [place] verbalized understanding and had no further questions or concerns. Call Ended: [phone] /zulay ACE RN Signed: 11/05/2024 13:43 Receipt Acknowledged By: * AWAITING SIGNATURE * DRE CONTRERAS [facility]
--- OUTSIDE RECORDS SUMMARY | 2024-11-05 15:55 | XMS_ITS | Encounter Summary ---
Author Name [facility] [place] [facility] [place] Organization [facility] [place] [facility] [place] Address [address] [place] [address] Care Team Providers Care Overhead Crane Inspector Name Role Phone BEN, DANNY Primary Care Provider Unavailabl e Selected Encounter This section includes the information on record at [place] for the Encounter. Date/Time Encounter Type Encounter Description Reason Provider Source Jul 03, 2024 09:35 AM SYNCH AUDIO-VIDEO EST MOD 30 PODIATRY ICD-10-CM E11.40 Type 2 diabetes mellitus with diabetic neuropathy, unsp [facility] Encounter Template Text not used by [place] Assessments - Encounter Diagnoses This section includes the primary and secondary diagnoses documented for the Encounter. Date/Time Primary/Secondary Diagnosis Diagnosis Name Provider Source Jul 03, 2024 10:10 AM PRIMARY Type 2 diabetes mellitus with diabetic neuropathy, unsp [facility] Jul 03, 2024 10:10 AM SECONDARY Corns and callosities [facility] Jul 03, 2024 10:10 AM SECONDARY Lymphedema, not elsewhere classified [facility] Jul 03, 2024 10:10 AM SECONDARY Other instability, unspecified ankle [facility] Jul 03, 2024 10:10 AM SECONDARY Tinea unguium [facility] Plan of Treatment: Future Appointments (+ 6 months) and Future Tests (+/- 45 days) The Plan of Treatment section includes future care activities for the [facility] [place] [facility] This section includes future appointments and future orders which are active, pending or scheduled. Future Appointments This section includes appointments that were scheduled to occur 6 months from the date of the Encounter, up to a maximum of 20 appointments. The data comes from all [facility]. Appointment Date/Time Appointment Type Appointme nt Facility Name Jul 16, 2024 10:15 AM AMBULATORY - NONE [facility] August 14, 2024 10:30 AM AMBULATORY - NONE [facility] August 22, 2024 08:30 AM AMBULATORY - NONE [facility] Aug 27, 2024 09:10 AM AMBULATORY - NONE [facility] Aug 27, 2024 01:00 PM AMBULATORY - REHAB MEDICIN E [facility] Sep 05, 2024 09:30 AM AMBULATORY - MEDICINE [facility] Sep 09, 2024 10:30 AM AMBULATORY - NONE [facility] Sep 10, 2024 09:45 AM AMBULATORY - NONE [facility] Oct 02, 2024 11:00 AM AMBULATORY - NONE [facility] Oct 11, 2024 08:30 AM AMBULATORY - MEDICINE [facility] Oct 21, 2024 10:00 AM AMBULATORY - NONE [facility] Oct 23, 2024 10:00 AM AMBULATORY - SURGERY [facility] Oct 23, 2024 10:05 AM AMBULATORY - NONE [facility] Nov 06, 2024 08:30 AM AMBULATORY - NONE [facility] Nov 28, 2024 09:30 AM AMBULATORY - NONE [facility] Advance Directives: All historical and current Section Date Range: From patient's date of to the date document was created. This section includes ALL of a patient's completed or amended [place] Advance and Rescinded Directives. The entries below indicate that a directive exists for the patient, but an actual copy is not included with this document. The data comes from all [facility]. Date Advance Directives Provider Source August 13, 2013 ADVANCE DIRECTIVE MARITA SANDERS [facility] Oct 13, 1998 ADVANCE DIRECTIVE Jessica YOST [facility] Mar 14, 1994 ADVANCE DIRECTIVE YUMIKO HOLMAN Louann WEINSTEIN [facility] Encounter Notes: All associated encounter notes This section contains the clinical notes associated to the Encounter. Date/Time Encounter Note(s) Provider Source Jul 03, 2024 09:31 AM SURGERY NOTE: LOCAL TITLE: SURGERY/PODIATRY STANDARD TITLE: SURGERY NOTE DATE OF NOTE: JUL 03, 2024@09:31 ENTRY DATE: JUL 03, 2024@09:31:39 AUTHOR: LUBA COONEY COSIGNER: URGENCY: STATUS: COMPLETED PODIATRY CVT [place] CONSENT Patient is in [place]. He is being seen by me via tele/CVT. He gives his consent to be seen by me and treated by the local LPNs in [place]. TCT CVT MINE ENGINEERING MANAGER also assisted in the exam. A/P: Patient [...] of Understanding: Good Suicide Screen: C-SSRS Screening [place]-Suicide Severity Rating Scale (C-SSRS Screener) 1. Over [...] due to responses to other questions. /loli/ Luba Cooney DPM DPM, Inspector Elevators Signed: 07/03/2024 10:10 [facility]
--- OUTSIDE RECORDS SUMMARY | 2024-11-05 15:55 | XMS_ITS | Encounter Summary ---
Author Name Department of Vetera Affairs (VA) Organization Department of Vetera [place] Affairs ([place]) Address [address] [place] [address] Care Team Providers Care Threading Machine Operator Name Role Phone DRE CONTRERAS Primary Care Provider Unavailabl e Selected Encounter This section includes the information on record at ME for the Encounter. Date/Time Encounter Type Encounter Description Reason Pro vider Source Jan 04, 2024 08:49 AM Outpatient Encounter COMMUNITY CARE CONSULT IHE Encounter Template Text not used by ME Plan of Treatment: Future Appointments (+ 6 months) and Future Tests (+/- 45 days) The Plan of Treatment section includes future care activities for the patient from all ME treatmentfacilities. This section includes future appointments and future orders which are active, pending or scheduled. Future Appointments This section includes appointments that were scheduled to occur 6 months from the date of the Encounter, up to a maximum of 20 appointments. The data comes from all ME treatment facilities. Appointment Date/Time Appointment Type Appointme nt Facility Name Jan 08, 2024 04:00 PM AMBULATORY - MEDICINE [facility] Jan 16, 2024 11:00 AM AMBULATORY - MEDICINE [facility] Jan 17, 2024 02:30 PM AMBULATORY - MEDICINE ILLI JEOVANNY [facility] Jan 22, 2024 09:00 AM AMBULATORY - NONE [facility] Jan 23, 2024 09:30 AM AMBULATORY - NONE [facility] Jan 31, 2024 08:00 AM [facility] Feb 16, 2024 01:00 PM [facility] Feb 19, 2024 02:15 AM AMBULATORY - NONE [facility] Feb 29, 2024 09:50 AM AMBULATORY - NONE [facility] Mar 07, 2024 10:00 AM AMBULATORY - MEDICINE [facility] Apr 10, 2024 11:30 AM AMBULATORY - SURGERY [facility] Apr 10, 2024 11:35 AM AMBULATORY - NONE [facility] Jun 17, 2024 10:00 AM AMBULATORY - NONE ILLIANA [facility] Jun 19, 2024 01:30 PM AMBULATORY - MEDICINE [facility] Jul 03, 2024 09:30 AM AMBULATORY - SURGERY [facility] Jul 03, 2024 09:35 AM AMBULATORY - NONE [facility]ENON [facility]Z [facility] Jul 03, 2024 11:00 AM AMBULATORY - NONE [facility] Advance Directives: All historical and current Section Date Range: From patient's date of to the date document was created. This section includes ALL of a patient's completed or amended ME Advance and Rescinded Directives. The entries below indicate that a directive exists for the patient, but an actual copy is not included with this document. The data comes from all ME facilities. Date Advance Directives Provider Source August 13, 2013 ADVANCE DIRECTIVE MARITA SANDERS [facility] Oct 13, 1998 ADVANCE DIRECTIVE Jessica YOST [facility] Mar 14, 1994 ADVANCE DIRECTIVE YUMIKO HOLMAN [facility] Encounter Notes: All associated encounter [...] care. RFS form can be viewed in [facility]. Please review and enter this order, if agreeable. - Thank you. Care Requested: Chiropractic Continuation of care ICD-10 Dx code: M54.16, M54.5 Date VA received request: Dec Date service required: Pending auth Requesting Community Provider Information: Name of Ordering Provider: Adarsh Mckeon Office:[facility] Address, [facility], State: [address] [place] [phone] /es/ Kathy Gonzalez RN, MSN RN Broaching Machine Repairer, [facility] Signed: 01/04/2024 14:34 Receipt Acknowledged By: 01/04/2024 14:51 /es/ Dre Contreras M.D. M.D. 01/05/2024 08:58 /es/ CHRISTELLE ACE RN ====== --- Original Document --- 01/04/24 COMMUNITY CARE-REQUEST FOR SERVICE NOTE: Request for Services (RFS) documentation has been sent for scanning to [facility] Care Consult: COMMUNITY CARE-Chiropractic Consult No: [id number] Date sent to scanning: Dec A Request for Service (RFS) form [id number] has been received which includes the following: Care Requested:Continuation of care ICD-10 Dx code: M54.16, M54.5 Date VA received request: Dec Date service required: Pending auth Requesting Community Provider Information: Name of Ordering Provider: Adarsh Mckeon Office:[facility] Address, [facility], State: [address] [place] [phone] /es/ Yanique Mcnally [facility] AMSA Signed: 01/04/2024 08:53 01/04/2024 ADDENDUM STATUS: COMPLETED ALERTING COMMUNITY CARE RN /es/ DIPESH PARRA LEAD SOILED LINEN DISTRIBUTOR Signed: 01/04/2024 14:21 Receipt Acknowledged By: 01/04/2024 14:32 /loli/ Kathy Gonzalez RN, MSN RN Broaching Machine Repairer, [facility] KATHY GONZALEZ [facility] Jan 04, 2024 02:21 PM ADDENDUM: LOCAL TITLE: Addendum STANDARD TITLE: ADDENDUM DATE OF NOTE: JAN 04, 2024@14:21:53 ENTRY DATE: JAN 04, 2024@14:21:55 AUTHOR: DIPESH PARRA EXP COSIGNER: URGENCY: STATUS: COMPLETED ALERTING COMMUNITY CARE RN /loli/ DIPESH PARRA LEAD SOILED LINEN DISTRIBUTOR Signed: 01/04/2024 14:21 Receipt Acknowledged By: 01/04/2024 14:32 /loli/ Kathy Gonzalez RN, MSN RN Broaching Machine Repairer, [facility] ====== --- Original Document --- 01/04/24 COMMUNITY CARE-REQUEST FOR SERVICE NOTE: Request for Services (RFS) documentation has been sent for scanning to [facility] Care Consult: COMMUNITY CARE-Chiropractic Consult No: [id number] Date sent to scanning: Dec A Request for Service (RFS) form [id number] has been received which includes the following: Care Requested:Continuation of care ICD-10 Dx code: M54.16, M54.5 Date VA received request: Dec Date service required: Pending auth Requesting Community Provider Information: Name of Ordering Provider: Adarsh Mckeon Office:[place] [facility] Address, [facility], [facility]: [address] [place] [address] /es/ Yanique Mcnally [facility] AMSA Signed: 01/04/2024 08:53 DIPESH PARRA [facility] Jan 04, 2024 08:53 AM LETTERS: LOCAL TITLE: COMMUNITY CARE-REQUEST FOR SERVICES (RFS) LETTER STANDARD TITLE: LETTERS DATE OF NOTE: JAN 04, 2024@08:53 ENTRY DATE: JAN 04, 2024@08:53:48 AUTHOR: LOUANN MCNALLY EXP COSIGNER: URGENCY: STATUS: COMPLETED Dear Provider, Adarsh Mckeon [place] Information: Patient Name: Ora Del Toro Date of : 1955 The [facility] has received the request for services to be provided outside of the [place]. Upon review, the following determination has been made: Referral package has been accepted and request has been made of the provider for approval of this care. This letter is not an authorization for care and care should not be scheduled or administered until an authorization is received. Chiropractic RFS RECEIVED: Should you have questions, please contact us at the [facility] Help Desk [phone] to speak with a patient service crew leader. You may also Visit the [facility] portal to check the status and print authorizations. As a reminder, if applicable, return medical records within 30 days for routine services. For SEOC details: SEOC Database https://seoc.[place].gov/ For code/PRCT info: Billing Code / PRCT Information https://www.[place].gov/[facility]/pro viders/PRCT_requirements.asp For Community Providers and ME users: ME St[employer] [employer] region https://www.[place].gov/[facility]/ind ex.asp For RFS form and information: [place] [employer] region https://www.[place].gov/[facility]/ind ex.asp FOR DME/Pharmacy: https://www.[place].gov/[facility]/pro viders/Service_Requirements.asp Sincerely, [facility] CECYLOUANN Allen [facility] Jan 04, 2024 08:49 AM NONVA NOTE: LOCAL TITLE: COMMUNITY CARE-REQUEST FOR SERVICE NOTE STANDARD TITLE: NONVA NOTE DATE OF NOTE: JAN 04, 2024@08:49 ENTRY DATE: JAN 04, 2024@08:49:23 AUTHOR: LOUANN MCNALLY EXP COSIGNER: URGENCY: STATUS: COMPLETED COMMUNITY CARE-REQUEST FOR SERVICE NOTE Has ADDENDA Request for Services (RFS) documentation has been sent for scanning to [facility] Consult: COMMUNITY CARE-Chiropractic Consult No: [id number] Date sent to scanning: Dec A Request for Service (RFS) form [id number] has been received which includes the following: Care Requested:Continuation of care ICD-10 Dx code: M54.16, M54.5 Date VA received request: Dec Date service required: Pending auth Requesting Community Provider Information: Name of Ordering Provider: Adarsh Mckeon Office:[facility] Address, [facility], State: [address] [place] [address] /es/ Yanique Mcnally [facility] Care AMSA Signed: 01/04/2024 08:53 01/04/2024 ADDENDUM STATUS: COMPLETED ALERTING COMMUNITY CARE RN /loli/ DIPESH PARRA LEAD SOILED LINEN DISTRIBUTOR Signed: 01/04/2024 14:21 Receipt Acknowledged By: 01/04/2024 14:32 /es/ Kathy Gonzalez RN, MSN RN Broaching Machine Repairer, [facility] 01/04/2024 ADDENDUM STATUS: COMPLETED RFS form received. [facility] RN alerting PACT Provider and RN of the RFS request received for Chiropractic continuation of care. RFS form can be viewed in [employer] [employer] [facility]. Please review and enter this order, if agreeable. - Thank you. Care Requested: Chiropractic Continuation of care ICD-10 Dx code: M54.16, M54.5 Date VA received request: Dec Date service required: Pending auth Requesting Community Provider Information: Name of Ordering Provider: Adarsh Ludinlali Office:[facility] Address, [facility], State: [address] [place] [address] /es/ Kathy Gonzalez RN, MSN RN Broaching Machine Repairer, [facility] Signed: 01/04/2024 14:34 Receipt Acknowledged By: 01/04/2024 14:51 /es/ Dre Contreras M.D. M.D. 01/05/2024 08:58 /loli/ CHRISTELLE ACE RN 01/05/2024 ADDENDUM STATUS: COMPLETED consult entered for provider review. /loli/ CHRISTELLE ACE RN Signed: 01/05/2024 08:58 LOUANN MCNALLY
--- OUTSIDE RECORDS SUMMARY | 2024-11-05 15:55 | XMS_ITS | Encounter Summary ---
Author Name Department of Vetera Affairs ([place]) Organization Department of [place] Address [address] [place] [address] Care Team Providers Care Electrical System Specialist Name Role Phone DANNY CONTRERAS Primary Care Provider Unavailabl e Selected Encounter This section includes the information on record at [place] for the Encounter. Date/Time Encounter Type Encounter Description Reason Provider Source May 15, 2024 11:21 AM Outpatient Encounter PODIATRY [facility]ELINA [facility] Encounter Template Text not used by [place] Plan of Treatment: Future Appointments (+ 6 [...] 10:00 AM AMBULATORY - NONE [facility] Jun 19, 2024 01:30 PM AMBULATORY - MEDICINE [facility] Jul 03, 2024 09:30 AM AMBULATORY - SURGERY [facility] Jul 03, 2024 09:35 AM AMBULATORY - NONE [facility] Jul 03, 2024 11:00 AM AMBULATORY - NONE [facility] Jul 16, 2024 10:15 AM AMBULATORY - NONE [facility] August 14, 2024 10:30 AM AMBULATORY - NONE [facility] August 22, 2024 08:30 AM AMBULATORY - NONE [facility] Aug 27, 2024 09:10 AM AMBULATORY - NONE [facility] Aug 27, 2024 01:00 PM AMBULATORY - REHAB MEDICIN E [facility] Sep 05, 2024 09:30 AM AMBULATORY - MEDICINE [facility] Sep 09, 2024 10:30 AM AMBULATORY - NONE [facility] Sep 10, 2024 09:45 AM AMBULATORY - NONE [facility] Oct 02, 2024 11:00 AM AMBULATORY - NONE [facility] Oct 11, 2024 08:30 AM AMBULATORY - MEDICINE [facility] Oct 21, 2024 10:00 AM AMBULATORY - NONE [facility] Oct 23, 2024 10:00 AM AMBULATORY - SURGERY [facility] Oct 23, 2024 10:05 AM AMBULATORY - NONE [facility] Nov 06, 2024 08:30 AM AMBULATORY - NONE [facility] Advance Directives: All historical and current Section [...] August 13, 2013 ADVANCE DIRECTIVE MARITA SANDERS [facility] Oct 13, 1998 ADVANCE DIRECTIVE Jessica YOST [facility] Mar 14, 1994 ADVANCE DIRECTIVE YUMIKO HOLMAN [facility]
--- OUTSIDE RECORDS SUMMARY | 2024-11-05 15:56 | XMS_ITS | Encounter Summary ---
Author Name Department of Vetera Affairs ([place]) Organization Department of Vetera Affairs ([place]) Address [address] [place] [address] Care Team Providers Care Party Plan Sales Consultant Name Role Phone DRE CONTRERAS Primary Care [...] 02, 2024 02:30 PM AMBULATORY - SURGERY [facility] Jan 02, 2024 02:35 PM AMBULATORY - NONE [facility] Jan 08, 2024 04:00 PM AMBULATORY - MEDICINE ILLI JEOV[facility]NY [facility] Jan 16, 2024 11:00 AM AMBULATORY - MEDICINE [facility] Jan 17, 2024 02:30 PM AMBULATORY - MEDICINE ILLI [facility]NY [facility] Jan 22, 2024 09:00 AM AMBULATORY - NONE [facility] Jan 23, 2024 09:30 [facility] Jan 31, 2024 08:00 AM [facility]BULATORY - NONE [facility] Feb 16, 2024 01:00 PM AMBULATORY - NONE [facility] Feb 19, 2024 02:15 AM [facility] Feb 29, 2024 09:50 AM [facility] Mar 07, 2024 10:00 AM AMBULATORY - MEDICINE [facility] Apr 10, 2024 11:30 AM [facility] Apr 10, 2024 11:35 AM AMBULATORY - NONE [facility] Jun 17, 2024 10:00 AM AMBULATORY - NONE [facility] Jun 19, 2024 01:30 PM AMBULATORY - MEDICINE [facility] Advance Directives: All historical [...] August 13, 2013 ADVANCE DIRECTIVE MARITA SANDERS [facility] Oct 13, 1998 ADVANCE DIRECTIVE Jessica YOST [facility] Mar 14, 1994 ADVANCE DIRECTIVE YUMIKO HOLMAN [facility] Encounter Notes: All associated encounter notes This section contains the clinical notes associated to the Encounter. Date/Time Encounter Note(s) Provider Source Feb 06, 2024 03:30 PM ADDENDUM: LOCAL TITLE: Addendum STANDARD TITLE: ADDENDUM DATE OF NOTE: FEB 06, 2024@15:30:43 ENTRY DATE: FEB 06, 2024@15:30:44 AUTHOR: KATHY GONZALEZ COSIGNER: URGENCY: STATUS: COMPLETED Records received and reviewed by [facility] RN on 02/06/24 Consult; Vascular Surgery #[id number] Date of Service; 01/31/24 Source/Facility; [facility] Document type; Vascular Surgery f/u office visit [...] medical records that will be available in [facility]. No [facility] Care Coordination for this visit at this time for any of the following; Navigation Scheduling Post-Appointment Follow-Up E-Communications to referring provider Records have been scanned. /loli/ Kathy Gonzalez RN, MSN RN Car Unloader, [facility] Signed: 02/06/2024 15:44 Receipt Acknowledged By: 02/06/2024 15:47 /loli/ Dre Contreras M.D. M.D. ====== --- Original Document --- 12/26/23 COMMUNITY CARE-CARE COORDINATION PLAN NOTE: Community Care Consult: Vascular Surgery Consult No: [id number] [facility] Referral #: [id number] Chief Complaint: Peripheral Vascular Disease, Unspecified(ICD-10-CM I73.9) Patient Admitted? No Level of Care Coordination Moderate Care Coordination was determined from: Chart Review Facility Community Care Office Contact Care Coordination Point of Contact: Community Care RN Services: Basic Care Coordination Services Monitoring and coordination of Rehab/PT Services Direct communication to referring provider Care management, if appropriate Plan: Scheduled 01/31/24 @ 8AM /es/ Yanique Annsonidoronal [facility] AMSA Signed: 12/26/2023 10:19 12/26/2023 ADDENDUM STATUS: COMPLETED INF-Lodi informed of Community Care eligibility VSP-Lodi scheduling preference: VA schedules SLD-Scheduling location discussed with : [facility] JOSÉ-Selected appointment location: [facility] CC1-First CC Contact Attempt: Telephone, Other spoke with PSP-Lodi's Scheduled Provider Bell Vidal [address] [place] [address] P: [phone] F: [phone] -Rory F: [phone] - Grace PSP FUV-Follow up communication with provider/vendor to check on status FUD-Community Care Appointment scheduled/rescheduled. ASD-Community Care Appointment scheduled date: 01/31/2024 IAV-Lodi informed of appt via: Mail CUR-CTB User Role: Recruiter Manager COM-Additional Comments: Spoke with , confirmed facility and appt. Spoke with Grace with facility, confirmed appt and fax. Scheduled in [facility] Scheduled: 01/31/24 @ 8AM Ultrasound, 9AM Ultrasound, 10AM Provider Ref number: [id number] Offline referral faxed to facility and mailed letter to . /es/ Yanique Mcnally [facility] AMSA Signed: 12/26/2023 10:25 12/26/2023 ADDENDUM STATUS: COMPLETED Care Coordination Follow Up Level of Care Coordination Basic Care Coordination was determined from: Chart Review, Phone call to Lodi/Family/Caregiver Services: Navigation Scheduling Post-Appointment Follow-Up E-Communications to referring provider Plan: [facility]ITC RN spoke with to discuss care coordination needs. manages care independently and verbalizes no transportation issues; no need for care coordination at this time. /loli/ Kathy Gonzalez RN, MSN RN Car Unloader, [facility] Signed: 12/26/2023 15:[address] [facility] Dec 26, 2023 10:27 AM NONVA NOTE: LOCAL TITLE: COMMUNITY CARE-PATIENT LETTER (AUTO-PRINT) STANDARD TITLE: NONVA NOTE DATE OF NOTE: DEC 26, 2023@10:27 ENTRY DATE: DEC 26, 2023@10:28:01 AUTHOR: LOUANN MCNALLY COSIGNER: URGENCY: STATUS: COMPLETED Dear: [place] DO NOT REPORT TO A PR LOCATION OF CARE You have an appointment with a community provider. Your appointment details are: Appointment date & time: Jan@08:00 Community Provider or Facility: [facility] Community Provider Location: [facility] Dr. Agustin Vidal [address] [place] [address] Community Provider Type of Specialty: Vascular Referral number: [id number] Referral valid: Jan to July You can find your authorization information online at [email or web address] If you have a co-pay for your care or prescriptions, [place] will send you a bill in the mail. Do not pay co-pays to [facility] providers. If you get a bill or are asked for a co-pay, contact [facility] at [phone]. In case of emergency call 911 or go to the nearest emergency department. You or your emergency care provider can contact [place] to report emergency treatment. You have 72 hours to report emergency care to [place]. Call (TTY:711) or visit https://[email or web address].[place].gov/ If you have an immediate need for prescription medication after your community care visit, you may be eligible for up to a 14-day supply, filled at a participating [facility] ([facility]) pharmacy. You can find an in-network pharmacy online at: www.va.gov/find-locations/ For immediate prescription, provide an eligible pharmacy the following information: BIN: [id number] PCN: [id number] Group: [id number] The prescribed medications must be related to the services authorized on the referral and must be included in the [place] National Formulary. If you do not need medication immediately and for medication supply greater than 14-days, ask the community provider to send your prescription to the pharmacy at [facility] and PR will mail it to you. To reach the [facility] pharmacy call and press 1. If you [...] the Beneficiary Travel Self Service System (BTSSS)at access.[place].gov - For assistance with your travel pay, you may contact [employer] at [phone]. LOUANN MCNALLY [facility] Dec 26, 2023 10:09 AM NONVA NOTE: LOCAL TITLE: COMMUNITY CARE-CARE COORDINATION PLAN NOTE STANDARD TITLE: NONVA NOTE DATE OF NOTE: DEC 26, 2023@10:09 ENTRY DATE: DEC 26, 2023@10:10:04 AUTHOR: LOUANN MCNALLY EXP COSIGNER: URGENCY: STATUS: COMPLETED COMMUNITY CARE-CARE COORDINATION PLAN NOTE Has ADDENDA Community Care Consult: Vascular Surgery Consult No: [id number] [facility] Referral #: [id number] Chief Complaint: Peripheral Vascular Disease, Unspecified(ICD-10-CM I73.9) [...] COMPLETED INF- informed of Community Care eligibility VSP- scheduling preference: VA schedules SLD-Scheduling location discussed with : Community Care JOSÉ-Selected appointment location: [facility] CC1-First CC Contact Attempt: Telephone, Other spoke with PSP-Lodi's Scheduled Provider [facility] Agustin Vidal [address] [place] [address] P: [phone] F: [phone] -Rory F: [phone] - Grace BRICEÑO [phone] PSP FUV-Follow up communication with provider/vendor to check on status FUD-Community Care Appointment scheduled/rescheduled. ASD-Community Care Appointment scheduled date: 01/31/2024 IAV- informed of appt via: Mail CUR-CTB User Role: Recruiter Manager COM-Additional Comments: Spoke with , confirmed facility and appt. Spoke with Grace with facility, confirmed appt and fax. Scheduled in [facility] Scheduled: 01/31/24 @ 8AM Ultrasound, 9AM Ultrasound, 10AM Provider Ref number: [id number] Offline referral faxed to facility and mailed letter to . /es/ Yanique Mcnally [facility] AMSA Signed: 12/26/2023 10:25 12/26/2023 ADDENDUM STATUS: COMPLETED Care Coordination Follow Up Level of Care Coordination Basic Care Coordination was determined from: Chart Review, Phone call to /Family/Caregiver Services: Navigation Scheduling Post-Appointment Follow-Up E-Communications to referring provider Plan: [facility] spoke with Lodi to discuss care coordination needs. Lodi manages care independently and verbalizes no transportation issues; no need for care coordination at this time. /es/ Kathy Gonzalez RN, MSN RN Car Unloader, [facility] Signed: 12/26/2023 15:33 02/06/2024 ADDENDUM STATUS: COMPLETED Records received and reviewed by [facility] on 02/06/24 Consult; Vascular Surgery #[id number] Date of Service; 01/31/24 Source/Facility; [facility] [...] medical records that will be available in [facility]. No [facility] Care Coordination for this visit at this time for any of the following; Navigation Scheduling Post-Appointment Follow-Up E-Communications to referring provider Records have been scanned. /loli/ Kathy Gonzalez RN, MSN RN Car Unloader, [facility] Signed: 02/06/2024 15:44 Receipt Acknowledged By: 02/06/2024 15:47 /loli/ Carlos Haynes M.D.LOUANN Allen [facility]
--- OUTSIDE RECORDS SUMMARY | 2024-11-05 15:56 | XMS_ITS | Encounter Summary ---
Author Name Department of [facility] ([place]) Organization [facility] of [facility] ([place]) Address [address] [place] [address] Care Team Providers Care Ramp Supervisor Name Role Phone DRE CONTRERAS Primary Care Provider Unavailabl e Selected Encounter This section includes the information on record at [place] for the Encounter. Date/Time Encounter Type Encounter Description Reason Provider Source Sep 05, 2024 09:30 AM OFFICE O/P EST MOD 30 MIN PRIMARY CARE/MEDICINE ICD-10-CM L72.3 Sebaceous cyst DRE CONTRERAS Manjinder Encounter Template Text not used by [place] Assessments - Encounter Diagnoses This section includes the primary and secondary diagnoses documented for the Encounter. Date/Time Primary/Secondary Diagnosis Diagnosis Name Provider Source Sep 05, 2024 09:50 AM PRIMARY Sebaceous cyst DRE COTNRERAS [facility] Sep 05, 2024 09:50 AM SECONDARY Benign prostatic hyperplasia without lower urinry tract symp DRE CONTRERAS [facility] Sep 05, 2024 09:50 AM SECONDARY Chronic ischemic heart disease, unspecified DRE CONTRERAS [facility] Sep 05, 2024 09:50 AM SECONDARY Chronic kidney disease, unspecified [facility] Sep 05, 2024 09:50 AM SECONDARY Chronic obstructive pulmonary disease, unspecified [facility] Sep 05, 2024 09:50 AM SECONDARY Essential (primary) hypertension [facility] Sep 05, 2024 09:50 AM SECONDARY Gastro-esophageal reflux disease without esophagitis [facility] Sep 05, 2024 09:50 AM SECONDARY Hyperlipidemia, unspecified [facility] Sep 05, 2024 09:50 AM SECONDARY Iron deficiency anemia, unspecified [facility] Sep 05, 2024 09:50 AM SECONDARY Re-entry ventricular arrhythmia [facility] Sep 05, 2024 09:50 AM SECONDARY Sleep related leg cramps [facility] Sep 05, 2024 09:50 AM SECONDARY Type 2 diabetes mellitus without complications [facility] Sep 05, 2024 09:50 AM SECONDARY 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 This section includes future appointments and future orders which are active, pending or scheduled. Future Appointments This section includes appointments that were scheduled to occur 6 months from the date of the Encounter, up to a maximum of 20 appointments. The data comes from all [facility] facilities. Appointment Date/Time Appointment Type Appointme nt Facility Name Sep 09, 2024 10:30 AM AMBULATORY - NONE [facility] Sep 10, 2024 09:45 AM AMBULATORY - NONE [facility] Oct 02, 2024 11:00 AM AMBULATORY - NONE [facility] Oct 11, 2024 08:30 AM AMBULATORY - MEDICINE [facility] Oct 21, 2024 10:00 AM AMBULATORY - NONE [facility] Oct 23, 2024 10:00 AM AMBULATORY - SURGERY [facility] Oct 23, 2024 10:05 AM AMBULATORY - NONE [facility] Nov 06, 2024 08:30 AM [facility]ONE [facility] Nov 28, 2024 09:30 AM [facility] Jan 21, 2025 10:00 AM AMBULATORY - NONE [facility] Feb 05, 2025 11:30 AM AMBULATORY - SURGERY [facility] Feb 05, 2025 11:35 AM AMBULATORY - NONE [facility] Feb 27, 2025 09:30 AM AMBULATORY - NONE [facility] Mar 06, 2025 09:30 AM AMBULATORY - MEDICINE [facility] Active, Pending, and Scheduled Orders This section includes a listing of several types of active, pending, and scheduled orders, including clinic medications orders, diagnostic test orders, procedure orders and consult orders; where the start date of the order is 45 days before the date of the Encounter or 45 days after the date of theEncounter. The data comes from all [place] treatment facilities. Test Date/Time Test Type Test Details Facility Name August 23, 2024 09:56 AM Consult Order COMMUNITY CARE-DERMATOLOGY Cons [facility] Oct 03, 2024 01:35 PM Consult Order COMMUNITY CARE-DS ROUTINE OPTOMETRY [facility] Lab Results: +/- 30 days of the [...] Type Comment Aug 27, 2024 09:21 AM [facility] FERRITIN ([place]) SERUM Specimen Type: SERUM Comment: Methotrexate and Leucovorin (folinic acid) interfere with the measurement of folate. Patients receiving these drugs should not be tested for folate by this method. Ordering Provider: DRE CONTRERAS Report Released Date/Time: May 24, 2024 09:08 AM Reporting Lab: [facility] [address] [facility] [address] Performing Lab: [facility] [address] [place] [id number] FERRITIN ([place]) 27.9 ng/mL 26.0-388.0 Aug 27, 2024 09:21 AM [facility] VITAMIN B12 ([place]) SERUM Speci men Type: SERUM Comment: Methotrexate and Leucovorin (folinic acid) interfere with the measurement of folate. Patients receiving these drugs should not be tested for folate by this method. Ordering Provider: DRE CONTRERAS Report Released Date/Time: Jun 28, 2024 07:56 AM Reporting Lab: [facility] [address] [facility] [address] Performing Lab: [facility] [address] [facility] [address] VITAMIN B12 (CONTRERAS) 728 pg/mL 193-986 Aug 27, 2024 09:21 AM [facility] FOLATE (CONTRERAS) SERUM Specimen T ype: SERUM Comment: Methotrexate and Leucovorin (folinic acid) interfere with the measurement of folate. Patients receiving these drugs should not be tested for folate by this method. Ordering Provider: DRE CONTRERAS Report Released Date/Time: May 03, 2024 12:41 PM Reporting Lab: [address] [address] Performing Lab: [facility] [address] [facility] [address] FOLATE ([place]) >48.00 ng/mL 5.39-48.00 Aug 27, 2024 09:21 AM [facility] A1C % BLOOD Specimen Type: BLOOD [...] Mar 07, 2024 10:28 AM Reporting Lab: [address] [address] Performing Lab: [address] [address] A1C % 6.2 H 0.0-5.6 Aug 27, 2024 09:21 AM [facility] IRON PANEL SERUM Specimen T ype: SERUM Comment: TIBC may be inaccurate if patient is on iron dextran in the last 14 days. Ordering Provider: DRE CONTRERAS Report Released Date/Time: Mar 07, 2024 10:32 AM Reporting Lab: [address] [address] Performing Lab: [address] [address] IRON 69 ug/dL 65-175 TOT IRON BINDING CAPAC 395 ug/dL 250-450 % IRON SATURATION 17 10-50 Aug 27, 2024 09:21 AM [facility] CBC W/DIFF BLOOD Specimen T ype: BLOOD No comment entered. Ordering Provider: DRE CONTRERAS Report Released Date/Time: Mar 07, 2024 10:28 AM Reporting Lab: [address] [address] Performing Lab: [address] [address] WBC 7.6 10*3/uL 4.0-11.0 RBC 4.27 10*6/uL [...] 0.0 /100{WBCs} 0.0-0.2 NRBC# <0.01 10*3/uL 0.00-0.01 Aug 27, 2024 09:21 AM [facility] COMPREHENSIVE PNL PLASMA Specime n Type: PLASMA Comment: eGFR was calculated using the CKD-EPI Creatinine (2020) equation. Ordering Provider: DRE CONTRERAS Report Released Date/Time: Mar 07, 2024 10:28 AM Reporting Lab: [address] [address] Performing Lab: [place] [phone] ANION GAP 6 mmol/L 5-15 EGFR 54 [...] mmol/L 98-109 CREATININE 1.40 mg/dL H 0.73-1.18 Vital Signs: All taken on the encounter date This section contains inpatient and outpatient Vital Signs collected on the date of the Encounter. Date/Time Temperature Pulse Blood Pressure Respiratory Rate SP02 Pain Height Weight Body Mass Index Source Sep 05, 2024 09:17 AM 97.9 F 66 /min 131/72 mm[Hg] 16 /min 94 % 1 238.6 lb 36 [facility] Social History: Smoking Status (Most current) and Tobacco Use (All prior to encounter date) This section includes the most current, and the historical, smoking and tobacco- related health factors from the [place] facility where the Encounter took place. Current Smoking Status This section includes the most current smoking, or tobacco-related health factor, from the [place] facility where the Encounter took place. Date/Time Current Smoking Status Comment Melissa loja Sep 05, 2024 09:30 AM VA-TOBACCO USE SANDI RY DAY CIGARETTES [facility] Tobacco Use History This section includes a history of the smoking, or tobacco-related health factors, that were collected on or before the date of the Encounter. The data comes from the [place] facility where the Encounter took place. Date/Time Smoking Status/Tobac co Use Comment Facility Sep 05, 2024 09:30 AM VA-TOBACCO SCREEN FOLLOW-UP [facility] Sep 05, 2024 09:30 AM VA-TOBACCO USE ADVICE [facility] Sep 05, 2024 09:30 AM VA-TOBACCO USE PBX OPERATOR NO [facility] 12, 2025 09:30 AM VA-TOBACCO USE EVERY DAY CIGARETTES [facility] Sep 05, 2024 09:30 AM VA-TOBACCO USE MED NO [facility] Sep 08, 2023 10:30 AM VA-TOBACCO USE 30 YEARS OR MORE [facility] Sep 08, 2023 10:30 AM VA-TOBACCO USE ADVICE [facility] Sep 08, 2023 10:30 AM VA-TOBACCO USE PBX OPERATOR NO [facility] Sep 08, 2023 10:30 AM VA-TOBACCO USE MED NO [facility] Sep 08, 2023 10:30 AM VA-TOBACCO USE WI 30 MIN OF [place] [facility] Sep 08, 2023 10:30 AM VA-TOBACCO USER EVERY DAY [facility] August 23, 2022 08:30 AM VA-TOBACCO USE 30 YEARS OR MORE [facility] August 23, 2022 08:30 AM VA-TOBACCO USE ADVICE [facility] August 23, 2022 08:30 AM VA-TOBACCO USE PBX OPERATOR NO [facility] August 23, 2022 08:30 AM VA-TOBACCO USE MED NO [facility] August 23, 2022 08:30 AM VA-TOBACCO USE WI 30 MIN OF [facility] August 23, 2022 08:30 AM VA-TOBACCO USER EVERY DAY [facility] May 07, 2021 10:00 AM VA-TOBACCO USE 30 YEARS OR MORE [facility] May 07, 2021 10:00 AM VA-TOBACCO USE ADVICE [facility] May 07, 2021 10:00 AM VA-TOBACCO USE PBX OPERATOR NO [facility] May 07, 2021 10:00 AM VA-TOBACCO USE MED NO [facility] May 07, 2021 10:00 AM VA-TOBACCO USE WI 30 MIN OF [facility] May 07, 2021 10:00 AM VA-TOBACCO USER EVERY DAY [facility] May 07, 2020 01:00 PM VA-TOBACCO USE 30 YEARS OR MORE [facility] May 07, 2020 01:00 PM VA-TOBACCO USE ADVICE [facility] May 07, 2020 01:00 PM VA-TOBACCO USE PBX OPERATOR NO [facility] May 07, 2020 01:00 PM VA-TOBACCO USE MED NO [facility] May 07, 2020 01:00 PM VA-TOBACCO USE WI 30 MIN OF [facility] May 07, 2020 01:00 PM VA-TOBACCO USER EVERY DAY [facility] Feb 13, 2019 11:11 AM VA-TOBACCO USE 30 YEARS OR MORE [facility] Feb 13, 2019 11:11 AM VA-TOBACCO USE ADVICE [facility] Feb 13, 2019 11:11 AM VA-TOBACCO USE PBX OPERATOR NO [facility] Feb 13, 2019 11:11 AM VA-TOBACCO USE MED NO [facility] Feb 13, 2019 11:11 AM VA-TOBACCO USE WI 30 MIN OF [facility] Feb 13, 2019 11:11 AM VA-TOBACCO USER EVERY DAY [facility] Sep 25, 2017 04:04 PM VA-TOBACCO USE 30 YEARS OR MORE [facility] Sep 25, 2017 04:04 PM VA-TOBACCO USE ADVICE [facility] Sep 25, 2017 04:04 PM VA-TOBACCO USE PBX OPERATOR NO [facility] Sep 25, 2017 04:04 PM VA-TOBACCO USE MED NO [facility] Sep 25, 2017 04:04 PM VA-TOBACCO USE WI 30 MIN OF [facility] Sep 25, 2017 04:04 PM VA-TOBACCO USER EVERY DAY [facility] Sep 20, 2017 12:35 PM HF.TOBACCO COUNSELING REFUSED [facility] Jul 11, 2017 01:33 PM HF.TOBACCO COUNSELING REFUSED [facility] Jul 11, 2017 01:33 PM TOBACCO CESSATION MEDS REFUSED [facility] Jul 11, 2017 01:33 PM TOBACCO CESSATION REFERRAL REFUSED [facility] Jul 11, 2017 01:33 PM TOBACCO OFFERRED STOP SMOKING CLINIC [facility] May 05, 2017 08:20 AM HF.TOBACCO COUNSELING REFUSED [facility] Feb 01, 2017 01:03 PM HF.TOBACCO COUNSELING REFUSED [facility] Aug 29, 2016 08:43 AM HF.TOBACCO COUNSELING REFUSED 2 pk/day declined ( does not wnat to quit) [facility] Aug 29, 2016 08:43 AM TOBACCO CESSATION MEDS REFUSED [facility] Aug 29, 2016 08:43 AM TOBACCO CESSATION REFERRAL REFUSED [facility] Aug 29, 2016 08:43 AM TOBACCO OFFERRED STOP SMOKING CLINIC [facility] May 23, 2016 09:59 AM HF.TOBACCO COUNSELING REFUSED [facility] Feb 29, 2016 09:30 AM HF.TOBACCO COUNSELING REFUSED [facility] Aug 26, 2015 06:35 AM HF.TOBACCO COUNSELING REFUSED [facility] Aug 26, 2015 06:35 AM TOBACCO CESSATION MEDS REFUSED [facility] Aug 26, 2015 06:35 AM TOBACCO CESSATION REFERRAL REFUSED [facility] Aug 26, 2015 06:35 AM TOBACCO OFFERRED PT MEDS (PROVIDER) [facility] Aug 26, 2015 06:35 AM TOBACCO OFFERRED STOP SMOKING CLINIC [facility] Advance Directives: All historical and current Section Date Range: From patient's date of to the date document was created. This section includes ALL of a patient's completed or amended [place] Advance and Rescinded Directives. The entries below indicate that a directive exists for the patient, but an actual copy is not included with this document. The data comes from all [place] facilities. Date Advance Directives Provider Source August 13, 2013 ADVANCE DIRECTIVE MARITA SANDERS [facility] Oct 13, 1998 ADVANCE DIRECTIVE Jessica YOST [facility] Mar 14, 1994 ADVANCE DIRECTIVE YMUIKO HOLMAN [facility] Encounter Notes: All associated encounter notes This section contains the clinical notes associated to the Encounter. Date/Time Encounter Note(s) Provider Source Sep 05, 2024 09:29 AM PRIMARY CARE NOTE: LOCAL TITLE: [facility] STANDARD TITLE: PRIMARY CARE [...] Using inhalers regularly. ventricular arrythmia - seen drug regulatory affairs specialist. Has pacemaker. ON amiodarone and metoprolol. No [...] stable, continue meds and follow up with drug regulatory affairs specialist 6. coronary artery disease, congestive heart fialure - cliically stable, conntinue meds, follow up with drug regulatory affairs specialist 7. benign prostatic hyptrophhy - med does help, continue 8. hypertension - blood pressure ok, conitnue meds 9. gastroepshgoeal reflux disease- stopped med and no heartburn off med 10. hyperlipdiemia - continue med and diet, check labs at next appt 11. diabetes mellitus type 2 - stable with diet alone. See eye doctor. [facility] labs 12 anemia - improved. Monitor labs [...] [facility] SPIRONOLACTONE [facility] [address] [facility] [place] [facility] FERROUS SULFATE [facility] [place] [facility] ROSUVASTATIN [facility] [place] [facility] SIMVASTATIN MRR1 - Med Reconciliation INCLUDED IN THIS LIST: Alphabetical list of active outpatient prescriptions dispensed from this [place] (local) and dispensed from another [place] or [facility] facility (remote) as well as inpatient orders (local pending and active), local clinic medications, locally documented non-VA medications, and local prescriptions that have or been discontinued in the past 90 days. Non-VA Meds Last Documented On: May 15, 2019 NOTE The display of VA prescriptions dispensed from another [place] or [facility] facility (remote) is limited to active outpatient prescription entries matched to National Drug File at the originating site and may not include some items such as investigational drugs, compounds, etc. NOT INCLUDED IN THIS LIST: Medications self-entered by the patient into personal health records (i.e. [facility]) are NOT included in this list. Non-VA medications documented outside this [place], remote inpatient orders (regardless of status) and [...] MORE THAN 6 TABLETS PER DAY. Rx# [id number] Last Released: 09/03/24 Qty/Days Supply: Rx Expiration Date: 01/17/25 Refills Remainin Indication: FOR PAIN OUTPT ALBUTEROL 90MCG (CFC-F) 200D ORAL INHL (Status = Active) INHALE 2 PUFFS BY MOUTH FOUR TIMES A DAY NEEDED FOR BREATHING Rx# [id number] Last Released: 09/11/23 Qty/Days Supply: 04/25 Rx Expiration Date: 09/08/24 Refills Remainin OUTPT ALBUTEROL SO4 0.083% INHL 3ML (Status = ) INHALE 3 ML VIA NEBULIZER BY ORAL NEBULIZATION FOUR TIMES A DAY NEEDED Rx# [id number] Last Released: 07/25/23 Qty/Days Supply: 120 Rx Expiration Date: 07/21/24 Refills Remainin Indication: FOR SHORTNESS OF BREATH OUTPT ALUMINUM HYDROXIDE GEL 320MG/5ML SUSP (Status = Discontinued) TAKE 15 ML BY MOUTH FOUR TIMES A DAY NEEDED FOR STOMACH ACID Rx# [id number] Last Released: 05/24/24 Qty/Days Supply: Rx Expiration Date: 07/21/24 Refills Remainin OUTPT ALUMINUM HYDROXIDE GEL 320MG/5ML SUSP (Status = Active) TAKE 15 ML BY MOUTH FOUR TIMES A DAY NEEDED FOR STOMACH ACID Rx# [id number] Last Released: 06/12/24 Qty/Days Supply: 05/11 Rx Expiration Date: 06/11/25 Refills Remainin OUTPT AMIODARONE HCL (PACERONE) 200MG TAB (Status = Active) TAKE ONE TABLET BY MOUTH DAILY FOR HEART Rx# [id number] Last Released: 07/24/24 Qty/Days Supply: 90 Rx Expiration Date: 09/08/24 Refills Remainin OUTPT AMIODARONE HCL (PACERONE) 200MG TAB (Status = Pending) TAKE ONE TABLET BY MOUTH DAILY FOR HEART Renewed from Rx# [id number] Qty/Days Supply: Login Date: 09/05/24 Refills Ordered: 3 OUTPT ASPIRIN 81MG CHEW TAB (Status = Active) CHEW ONE TABLET BY MOUTH EVERY DAY FOR BLOOD THINNER Rx# [id number] Last Released: 08/08/24 Qty/Days Supply: Rx Expiration Date: 09/08/24 Refills Remainin OUTPT ASPIRIN 81MG CHEW TAB (Status = Pending) CHEW ONE TABLET BY MOUTH EVERY DAY FOR BLOOD THINNER Renewed from Rx# [id number] Qty/Days Supply: Login Date: 09/05/24 Refills Ordered: 3 Non-VA COENZYME Q10 CAP/TAB TAKE ONE CAPSULE BY MOUTH OUTPT DOCUSATE NA 100MG CAP (Status = Active) TAKE ONE CAPSULE BY MOUTH DAILY Rx# [id number] Last Released: 04/18/24 Qty/Days Supply: Rx Expiration Date: 11/14/24 Refills Remainin Indication: FOR STOOL SOFTENER OUTPT DOXAZOSIN MESYLATE 4MG TAB (Status = ) TAKE ONE TABLET BY MOUTH AT BEDTIME FOR PROSTATE DOSE REDUCTION Rx# [id number] Last Released: 04/23/24 Qty/Days Supply: Rx Expiration Date: 08/09/24 Refills Remainin Indication: FOR PROSTATE OUTPT DOXAZOSIN MESYLATE 4MG TAB (Status = Pending) TAKE ONE TABLET BY MOUTH AT BEDTIME FOR PROSTATE DOSE REDUCTION Renewed from Rx# [id number] Qty/Days Supply: Login Date: 09/05/24 Refills Ordered: 3 OUTPT EZETIMIBE 10MG TAB (Status = Active) TAKE ONE TABLET BY MOUTH EVERY DAY FOR LOWERING CHOLESTEROL Rx# [id number] Last Released: 03/18/24 Qty/Days Supply: Rx Expiration Date: 09/08/24 Refills Remainin OUTPT FEXOFENADINE HCL 180MG TAB (Status = Active) TAKE ONE TABLET BY MOUTH DAILY FOR ALLERGIES Rx# [id number] Last Released: 09/03/24 Qty/Days Supply: Rx Expiration Date: 06/20/25 Refills Remainin Indication: FOR ALLERGIES OUTPT FLUTICASONE PROP 50MCG 120D NASAL INHL (Status = Active) INSTILL 2 SPRAYS IN EACH NOSTRIL DAILY FOR NASAL ALLERGIES Rx# [id number] Last Released: 08/30/24 Qty/Days Supply: 04/25 Rx Expiration Date: 06/20/25 Refills Remainin Indication: FOR NASAL ALLERGIES OUTPT FUROSEMIDE 40MG TAB (Status = Active) TAKE ONE TABLET BY MOUTH DAILY FOR BLOOD PRESSURE/WATER PILL Rx# [id number] Last Released: 08/28/24 Qty/Days Supply: Rx Expiration Date: 09/08/24 Refills Remainin OUTPT GABAPENTIN 600MG TAB (Status = ) TAKE ONE TABLET BY MOUTH TWICE A DAY FOR PAIN/NEUROPATHY Rx# [id number] Last Released: 06/06/24 Qty/Days Supply: Rx Expiration Date: 07/21/24 Refills Remainin OUTPT GABAPENTIN 600MG TAB (Status = Pending) TAKE ONE TABLET BY MOUTH TWICE A DAY FOR PAIN/NEUROPATHY Renewed from Rx# [id number] Qty/Days Supply: Login Date: 09/05/24 Refills Ordered: 3 OUTPT LACTOBACILLUS ACIDOPHILUS CAP (Status = Pending) ACIDOPHILUS CAP TAKE 1 CAPSULE BY MOUTH DAILY Login Date: 09/05/24 Qty/Days Supply: Refills Ordered: 3 OUTPT LACTULOSE 10GM/15ML ORAL SOLN (Status = Active/Suspended) TAKE 15 ML BY MOUTH TWICE A DAY FOR CONSTIPATION Rx# [id number] Last Released: 08/08/24 Qty/Days Supply: Rx Expiration Date: 04/30/25 Refills Remainin Indication: FOR CONSTIPATION OUTPT LISINOPRIL 5MG TAB (Status = Discontinued) TAKE ONE TABLET BY MOUTH DAILY FOR BLOOD PRESSURE Rx# [id number] Last Released: 06/17/24 Qty/Days Supply: Rx Expiration Date: 09/08/24 Refills Remainin OUTPT LISINOPRIL 5MG TAB (Status = Active/Suspended) TAKE ONE TABLET BY MOUTH DAILY FOR BLOOD PRESSURE Rx# [id number] Last Released: Qty/Days Supply: Rx Expiration Date: 09/03/25 Refills Remainin OUTPT MAGNESIUM OXIDE 400MG TAB (Status = Active) TAKE ONE TABLET BY MOUTH DAILY WITH FOOD Rx# [id number] Last Released: 08/06/24 Qty/Days Supply: Rx Expiration Date: 09/08/24 Refills Remainin Indication: FOR MAGNESIUM REPLACEMENT OUTPT MENTHOL/M-SALICYLATE 10-15% TOP CREAM (Status = Discontinued) APPLY SMALL AMOUNT TOPICALLY NEEDED Rx# [id number] Last Released: 03/11/24 Qty/Days Supply: Rx Expiration Date: 03/08/25 Refills Remainin Indication: FOR SORE MUSCLES OR JOINTS OUTPT MENTHOL/M-SALICYLATE 10-15% TOP CREAM (Status = Active) APPLY SMALL AMOUNT TOPICALLY EVERY DAY NEEDED FOR SORE MUSCLES OR JOINTS Rx# [id number] Last Released: 07/04/24 Qty/Days Supply: Rx Expiration Date: 07/04/25 Refills Remainin Indication: FOR SORE MUSCLES OR JOINTS OUTPT METOPROLOL SUCCINATE 50MG SA TAB (Status = ) TAKE ONE TABLET BY MOUTH EVERY DAY Rx# [id number] Last Released: 07/31/24 Qty/Days Supply: Rx Expiration Date: 08/09/24 Refills Remainin OUTPT METOPROLOL SUCCINATE 50MG SA TAB (Status = Pending) TAKE ONE TABLET BY MOUTH EVERY DAY Renewed from Rx# [id number] Qty/Days Supply: Login Date: 09/05/24 Refills Ordered: 3 OUTPT MOMETASONE 200MCG/ACTUAT 120D ORAL INHL (Status = Active) INHALE TWO PUFFS BY MOUTH TWICE A DAY RINSE MOUTH AFTER EACH USE Rx# [id number] Last Released: 06/04/24 Qty/Days Supply: 04/25 Rx Expiration Date: 09/08/24 Refills Remainin OUTPT MONTELUKAST NA 10MG TAB (Status = Active) TAKE ONE TABLET BY MOUTH EVERY DAY Rx# [id number] Last Released: 05/27/24 Qty/Days Supply: Rx Expiration Date: 12/18/24 Refills Remainin OUTPT MONTELUKAST NA 10MG TAB (Status = Pending) TAKE ONE TABLET BY MOUTH EVERY DAY Renewed from Rx# [id number] Qty/Days Supply: Login Date: 09/05/24 Refills Ordered: 3 OUTPT MULTIVITAMIN CAP/TAB (Status = Active) TAKE 1 CAP/TAB BY MOUTH DAILY SUPPLEMENT Rx# [id number] Last Released: 08/28/24 Qty/Days Supply: Rx Expiration Date: 09/08/24 Refills Remainin OUTPT OLODATEROL/TIOTROP 2.5MCG/ACTUAT 60D INH (Status = Discontinued) INHALE 2 PUFFS BY MOUTH EVERY DAY Rx# [id number] Last Released: 05/28/24 Qty/Days Supply: Rx Expiration Date: 12/18/24 Refills Remainin OUTPT OLODATEROL/TIOTROP 2.5MCG/ACTUAT 60D INH (Status = Active) INHALE 2 PUFFS BY MOUTH EVERY DAY Rx# [id number] Last Released: 09/03/24 Qty/Days Supply: Rx Expiration Date: 06/18/25 Refills Remainin OUTPT OMEPRAZOLE 40MG EC CAP (Status = Discontinued) TAKE ONE CAPSULE BY MOUTH EVERY MORNING 30 MINUTES BEFORE BREAKFAST Rx# [id number] Last Released: 08/22/24 Qty/Days Supply: Rx Expiration Date: 03/08/25 Refills Remainin Indication: FOR STOMACH ACID OUTPT PRAVASTATIN NA 20MG TAB (Status = Active) TAKE ONE-HALF TABLET BY MOUTH SUNDAYS, MONDAYS, WEDNESDAYS AND FRIDAYS FOR CHOLESTEROL. CALL YOUR PROVIDER IF YOU HAVE MUSCLE PAIN, TENDERNESS OR WEAKNESS Rx# [id number] Last Released: 03/22/24 Qty/Days Supply: Rx Expiration Date: 09/08/24 Refills Remainin Indication: FOR CHOLESTEROL OUTPT VITAMIN B COMPLEX CAP (Status = Active) TAKE ONE CAPSULE BY MOUTH DAILY Rx# [id number] Last Released: 03/22/24 Qty/Days Supply: Rx Expiration Date: 09/08/24 Refills Remainin SUPPLIES OUTPT ACCU-CHEK GUIDE (GLUCOSE) TEST STRIP (Status = Active) USE ONE STRIP THREE TIMES WEEKLY FOR BLOOD GLUCOSE MONITORING (STORE IN ORIGINAL BOTTLE WITH LID ON AT ALL TIMES) Rx# [id number] Last Released: 04/18/24 Qty/Days Supply: 50/30 Rx Expiration Date: 03/08/25 Refills Remainin OUTPT ALCOHOL PREP PAD (Status = Active) USE PAD TO SUPPLY DIRECTED Rx# [id number] Last Released: 03/08/24 Qty/Days Supply: 200/30 Rx Expiration Date: 03/08/25 Refills Remainin Potential risks, benefits, and alternative to medications prescribed were discussed with /caregiver who was given an opportunity to ask questions, which were answered to the best of my ability and seemingly to their satisfaction. [place]/caregiver was/were instructed to contact provider (means provided) with any concerns or questions. A list of reconciled medications was provided to the [place]/caregiver. /loli/ Dre Contreras M.D. STAFF PACT PHYSICIAN Signed: 09/05/2024 09:50 DRE CONTRERAS [facility] Sep 05, 2024 09:16 AM NURSING NOTE: LOCAL TITLE: JANEY/PREVMED STANDARD TITLE: NURSING NOTE DATE OF NOTE: SEP 05, 2024@09:16 ENTRY DATE: SEP 05, 2024@09:16:41 AUTHOR: ZACK HOOKER EXP COSIGNER: URGENCY: STATUS: COMPLETED TWO OR MORE PATIENT IDENTIFIERS REQUIRED FULL NAME SS NUMBER Date here for 6 month appointnment PCP: [facility] spe[facility]: podiatry, prosthetics, orthopedics, cardiology [place] quit taking omeprazole about 2 weeks ago and started taking probiotics - which has helped with stools [place] finished taking antibiotic last night Influenza Immunization: [...] declined JANEY-SKIN RISK ASSESSMENT: JANEY/SKIN RISK 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 COVID-19 Immunization: Referred to another clinic for immunization (desired vaccine unavailable at this location) RSV Immunization: Respiratory Syncytial Virus (RSV) Vaccine: Refused [employer] (RSV vaccine, adjuvanted, Arexvy). Immunization: RSV, RECOMBINANT, PROTEIN SUBUNIT RSVPREF3, ADJUVANT RECONSTITUTED, 0.5 ML, PF Refusal Reason: PATIENT DECISION Patient refuses all immunization(s) in the RSV group Date Documented: 09/05/24 09:27 /loli/ ZACK HOOKER director strategic planning Signed: 09/05/2024 09:28 ZACK HOOKER [facility]
--- OUTSIDE RECORDS SUMMARY | 2024-11-05 15:56 | XMS_ITS | Encounter Summary ---
Author Name [facility] [place] [facility] [place] Address [address] [place] [address] Care Team Providers Care Community Health Planning Director Name Role Phone BEN DANNY Primary Care Provider Unavailabl e Selected Encounter This section includes the information on record at [place] for the Encounter. Date/Time Encounter Type Encounter Description Reason Provider Source Oct 23, 2024 10:00 AM TRIM NAIL(S) ANY NUMBER PODIATRY ICD-10-CM Z71.89 Other specified counseling ABDOUL GAY Manjinder Encounter Template Text not used by [place] Assessments - Encounter Diagnoses This section includes the primary and secondary diagnoses documented for the Encounter. Date/Time Primary/Secondary Diagnosis Diagnosis Name Provider Source Oct 23, 2024 10:14 AM PRIMARY Other specified counseling ABDOUL GAY [facility] Plan of Treatment: Future Appointments (+ [...] 2024 08:30 AM AMBULATORY - NONE [facility] Nov 28, 2024 09:30 AM AMBULATORY - NONE [facility] Jan 21, 2025 10:00 AM AMBULATORY - NONE [facility] Feb 05, 2025 11:30 AM [facility] Feb 05, 2025 11:35 AM AMBULATORY - NONE [facility] Feb 27, 2025 09:30 AM AMBULATORY - NONE [facility] Mar 06, 2025 09:30 AM AMBULATORY - MEDICINE [facility] Active, Pending, and Scheduled Orders This [...] Consult Order COMMUNITY CARE-DS ROUTINE OPTOMETRY Cons Crm Marketing Executive's [facility] Oct 28, 2024 01:11 PM Consult Order PROSTHETIC S REQUEST - OUTPT Cons Crm Marketing Executive's [facility] Oct 30, 2024 12:22 PM Consult Order COMMUNITY CARE-VASCULAR SURGERY Cons Crm Marketing Executive's [facility] Social History: Smoking Status (Most current) and [...] Current Smoking Status Comment Melissa corbin Sep 05, 2024 09:30 AM VA-TOBACCO USE SANDI RY DAY CIGARETTES [facility] Tobacco Use History This section includes a history of the smoking, or tobacco-related health factors, that were collected on or before the date of the Encounter. The data comes from the [place] facility where the Encounter took place. Date/Time Smoking Status/Tobac co Use Comment Facility Sep 05, 2024 09:30 AM VA-TOBACCO SCREEN FOLLOW-UP [facility] Sep 05, 2024 09:30 AM VA-TOBACCO USE ADVICE [facility] [place] Sep 05, 2024 09:30 AM VA-TOBACCO USE SCALE CLERK NO [facility] Sep 05, 2024 09:30 AM VA-TOBACCO USE EVERY DAY CIGARETTES [facility] Sep 05, 2024 09:30 AM VA-TOBACCO USE MED NO [facility] Sep 08, 2023 10:30 AM VA-TOBACCO USE 30 YEARS OR MORE [facility] Sep 08, 2023 10:30 AM VA-TOBACCO USE ADVICE [facility] [place] Sep 08, 2023 10:30 AM VA-TOBACCO USE SCALE CLERK NO [facility] Sep 08, 2023 10:30 AM VA-TOBACCO USE MED NO [facility] Sep 08, 2023 10:30 AM VA-TOBACCO USE [place] 30 MIN OF [facility] Sep 08, 2023 10:30 AM VA-TOBACCO USER EVERY DAY [facility] August 23, 2022 08:30 AM VA-TOBACCO USE 30 YEARS OR MORE [facility] August 23, 2022 08:30 AM VA-TOBACCO USE ADVICE [facility] August 23, 2022 08:30 AM VA-TOBACCO USE SCALE CLERK NO [facility] August 23, 2022 08:30 AM VA-TOBACCO USE MED NO [facility] August 23, 2022 08:30 AM VA-TOBACCO USE [place] 30 MIN OF [facility] August 23, 2022 08:30 AM VA-TOBACCO USER EVERY DAY [facility] May 07, 2021 10:00 AM VA-TOBACCO USE 30 YEARS OR MORE [facility] May 07, 2021 10:00 AM VA-TOBACCO USE ADVICE [facility] May 07, 2021 10:00 AM VA-TOBACCO USE SCALE CLERK NO [facility] May 07, 2021 10:00 AM VA-TOBACCO USE MED NO [facility] May 07, 2021 10:00 AM VA-TOBACCO USE [place] 30 MIN OF [facility] May 07, 2021 10:00 AM VA-TOBACCO USER EVERY DAY [facility] May 07, 2020 01:00 PM VA-TOBACCO USE 30 YEARS OR MORE [facility] May 07, 2020 01:00 PM VA-TOBACCO USE ADVICE [facility] May 07, 2020 01:00 PM VA-TOBACCO USE SCALE CLERK NO [facility] May 07, 2020 01:00 PM VA-TOBACCO USE MED NO [facility] May 07, 2020 01:00 PM VA-TOBACCO USE [place] 30 MIN [facility] May 07, 2020 01:00 PM VA-TOBACCO USER EVERY DAY [facility] Feb 13, 2019 11:11 AM VA-TOBACCO USE 30 YEARS OR MORE [facility] Feb 13, 2019 11:11 AM VA-TOBACCO USE ADVICE [facility] Feb 13, 2019 11:11 AM VA-TOBACCO USE SCALE CLERK NO [facility] Feb 13, 2019 11:11 AM VA-TOBACCO USE MED NO [facility] Feb 13, 2019 11:11 AM VA-TOBACCO USE WI 30 MIN [facility] Feb 13, 2019 11:11 AM VA-TOBACCO USER EVERY DAY [facility] Sep 25, 2017 04:04 PM VA-TOBACCO USE 30 YEARS OR MORE [facility] Sep 25, 2017 04:04 PM VA-TOBACCO USE ADVICE [facility] Sep 25, 2017 04:04 PM VA-TOBACCO USE SCALE CLERK NO [facility] Sep 25, 2017 04:04 PM VA-TOBACCO USE MED NO [facility] Sep 25, 2017 04:04 PM VA-TOBACCO USE [place] 30 MIN OF [facility] Sep 25, 2017 04:04 PM VA-TOBACCO USER EVERY DAY [facility] Sep 20, 2017 12:35 PM HF.TOBACCO COUNSELING REFUSED [facility] Jul 11, 2017 01:33 PM HF.TOBACCO COUNSELING REFUSED [facility] Jul 11, 2017 01:33 PM TOBACCO CESSATION MEDS REFUSED [facility] Jul 11, 2017 01:33 PM TOBACCO CESSATION REFERRAL REFUSED [facility] Jul 11, 2017 01:33 PM TOBACCO OFFERRED STOP SMOKING CLINIC [facility] May 05, 2017 08:20 AM HF.TOBACCO COUNSELING REFUSED [facility] Feb 01, 2017 01:03 PM HF.TOBACCO COUNSELING REFUSED [facility] Aug 29, 2016 08:43 AM HF.TOBACCO COUNSELING REFUSED 2 pk/day declined ( does not wnat to quit) [facility] Aug 29, 2016 08:43 AM TOBACCO CESSATION MEDS REFUSED [facility] Aug 29, 2016 08:43 AM TOBACCO CESSATION REFERRAL REFUSED [facility] Aug 29, 2016 08:43 AM TOBACCO OFFERRED STOP SMOKING CLINIC [facility] May 23, 2016 09:59 AM HF.TOBACCO COUNSELING REFUSED [facility] Feb 29, 2016 09:30 AM HF.TOBACCO COUNSELING REFUSED [facility] Aug 26, 2015 06:35 AM HF.TOBACCO COUNSELING REFUSED [facility] Aug 26, 2015 06:35 AM TOBACCO CESSATION MEDS REFUSED [facility] Aug 26, 2015 06:35 AM TOBACCO CESSATION REFERRAL REFUSED [facility] Aug 26, 2015 06:35 AM TOBACCO OFFERRED PT MEDS (PROVIDER) [facility] Aug 26, 2015 06:35 AM TOBACCO OFFERRED STOP SMOKING CLINIC [facility] Advance Directives: All historical and [...] 13, 2013 ADVANCE DIRECTIVE MARITA SANDERS [facility] Oct 13, 1998 ADVANCE DIRECTIVE Jessica YOST [facility] Mar 14, 1994 ADVANCE DIRECTIVE YUMIKO HOLMAN [facility] Encounter Notes: All associated encounter notes This section contains the clinical notes associated to the Encounter. Date/Time Encounter Note(s) Provider Source Oct 23, 2024 10:00 AM TELEHEALTH NOTE: LOCAL TITLE: CVT PODIATRY STANDARD TITLE: TELEHEALTH NOTE DATE OF NOTE: OCT 23, 2024@10:00 ENTRY DATE: OCT 23, 2024@10:00:47 AUTHOR: LIN GAY EXP COSIGNER: URGENCY: STATUS: COMPLETED TWO OR MORE PATIENT IDENTIFIERS REQUIRED FULL NAME Date [place] has given verbal consent for this encounter to be done through clinical video Telehealth with [facility] [place]. Please refer to Provider note for details of this encounter. next scheduled 02/05/25 AT 1130 . Will inform the Animal Feeder /loli/ LIN GAY LPN Signed: 10/23/2024 10:14 Receipt Acknowledged By: 10/24/2024 13:02 /loli/ CHAPARRO WREN DIRECTOR SPORTS 10/24/2024 14:32 /loli/ ASIA ALEXANDRE ADVANCED DIRECTOR SPORTS 10/24/2024 13:02 /es/ LIN JAIMES [facility]
[2024-11-05 17:35] VITALS: BP 135/67; PULSE 57; RESP 18; O2SAT 96
[2024-11-05] MEDS: CEPHALEXIN 500 MG CAPSULE PO (17:58)
--- NOTE | 2024-11-07 12:45 | PC.NURSE ---
preliminary blood culture reviewed. gram positive cocci isolated in anaerobic bottle only
--- NOTE | 2024-11-07 12:47 | PC.NURSE ---
final urine culture report reviewed. < 10,000bacterial units forming. this is not generally considered to be clinically significant. no change in plan of care
--- NOTE | 2024-11-08 12:37 | PC.NURSE ---
PRELIMINARY BLOOD CULTURE POSITIVE FOR GRAM POSITIVE COCCI PT SENT HOME ON KEFLEX 500MG BID FOR [address] VEGA NO FURTHER ORDERS NEEDED
--- NOTE | 2024-11-09 13:37 | PC.NURSE ---
Preliminary blood culture report; gram positive cocci, Patient discharged on cephalexin, will wait for final culture and sensativity.
--- NOTE | 2024-11-11 13:44 | PC.NURSE ---
BLOOD CULTURE PRELIMINARY RESULT: GRAM POSITIVE COCCI - final result pending
--- NOTE | 2024-11-12 12:56 | PC.NURSE ---
preliminary blood culture reviewed. gram positive cocci isolated in aerobic bottle only
--- NOTE | 2024-11-12 13:04 | PC.NURSE ---
final blood culture report reviewed. no growth after 5 days in aerobic bottle. viridans strep isolated in anaerobic bottle.
--- NOTE | 2024-11-12 13:07 | PC.NURSE ---
pt discharged on cephalexin, report shows sensitivity to same. no change in plan of care
--- NOTE | 2024-11-12 13:09 | PC.NURSE ---
final blood culture on anaerobic bottle shows no growth in five days
== END 2024-11-05 18:13 | disposition home or self-care (01) ==
PROVIDERS: Emergency Provider Emergency Medicine
DX: N39.0 Urinary tract infection, site not specified (principal); S30.1XXA Contusion of abdominal wall, initial encounter; E11.22 Type 2 diabetes mellitus with diabetic chronic kidney disease; I13.0 Hypertensive heart and chronic kidney disease with heart failure and stage 1 through stage 4 chronic kidney disease, or unspecified chronic kidney disease; N18.9 Chronic kidney disease, unspecified; I50.9 Heart failure, unspecified; I25.10 Atherosclerotic heart disease of native coronary artery without angina pectoris; J44.9 Chronic obstructive pulmonary disease, unspecified; Z98.61 Coronary angioplasty status; X58.XXXA Exposure to other specified factors, initial encounter
CPT/HCPCS: 36415; 74177; 76870; 80053; 81001; 83605; 85025; 85610; 85730; 87086; 93976; 99284; A9270; Q9967

== ENCOUNTER 2025-03-24 15:36 | Emergency (ER) | payer OTHER, SELFPAY ==
[2025-03-24 15:36] VITALS: BP 132/64; PULSE 68; RESP 20; TEMP 36.6; O2SAT 98
--- OUTSIDE RECORDS SUMMARY | 2025-03-24 15:39 | XMS_ITS | Encounter Summary ---
Author Organization [facility] Address [address] [place] [address] Care Team Providers Care Cnc Mechanic Name Role Phone Yonathan Kellogg MD Unavailable [phone] Denise Elmore MANAGER EXCHANGE Primary Care Provider [phone] Omar River MD Unavailable Unavailable None, Provider MD Primary Care Provider Unavaila [facility] Kaitlin Fuentes MD Unavailable [phone] Dre Boss MD Primary Care Provider [phone] Agustin Vidal MD Unavailable Aaron Rivera MD Unavailable Unavailable Patricia Lamar NP Unavailable [phone] Agustin Vidal MD Unavailable Eduardo Foster MD Unavailable Unavailable Encounter Details Date Type Department Care Team (Late st Contact Info) Description 02/14/2018 Abstract [facility] [address] [place] [phone] Yonathan Kellogg MD [address] [place] [phone] Social History Tobacco Use Types Packs/Day Years Used Date Smoking Tobacco: Every Day Cigarettes 2 50 Smokeless Tobacco: Never Alcohol Use Standard Drinks/Week Comments Yes 1.7 (1 standard drin k = 0.6 oz pure alcohol) drinks one 5th of hard liquor in per week Sex and Gender Information Value Date Recorded Sex Assigned at Male 12/12/2024 9:17 AM CDT Legal Sex Male 4:09 PM CDT Gender Identity Not on file Sexual Orientation Not on file documented as of this encounter Plan of Treatment Upcoming Encounters Date Type Department Care Team (Late st Contact Info) Description 06/09/2025 1:15 PM CDT Allied Health/Nurse Visit [facility] [address] [place] [address] Yonathan Kellogg MD [address] [place] [phone] 528- 06/09/2025 1:30 PM CDT Office Visit [facility] [address] [place] [address] Yonathan Kellogg MD [address] [place] [phone] 09/10/2025 1:15 AM CDT Allied Health/Nurse Visit [facility] [address] [place] [address] Yonathan Kellogg MD [address] [place] [phone] documented as of this encounter Visit Diagnoses Not on filedocumented in this encounter Additional Health Concerns Infection Onset Date Last Indicated Resolved Time COVID-19 Rule Out 12/15/2020 12/15/2020 12/15/2020 7:21 PM CDT COVID-19 Rule Out 04/05/2021 04/05/2021 04/05/2021 8:31 PM WAX ENGRAVER documented as of this encounter Care Teams Cnc Mechanic Relationship Specialty Start Date End Date Denise Elmore NP [address] [place] [phone] PCP - General NURSE PRACTITIONER 10/05/17 07/21/20 None, Provider, PCP - General 07/22/20 08/18/20 Dre Boss MD [address] [place] [address] PCP - General INTERNAL MEDICINE 08/19/20 Yonathan Kellogg MD [address] [place] [address] EP Supervisor [employer] CLINICAL CARDIAC ELECTROPHYSIOLOGY 10/05/17 Omar River MD INTERVENTIONAL CARDIOLOGY 10/27/17 Kaitlin Fuentes MD Consulting Physician INTERNAL MEDICINE 07/23/20 Agustin Vidal MD [address] [place] [address] Vascular/Supervisor [employer] INTERNAL MEDICINE 08/19/20 Aarno Rivera MD [address] [place] [address] Consulting Physician INTERVENTIONAL CARDIOLOGY 12/28/2004/18/23 Patricia Lamar NP [address] [facility] [address] [place] [address] Nurse Practitioner Nurse Practitioner Family 12/28/20 08/14/24 Agustin Vidal MD [address] [facility] [address] [place] [phone] Vascular/Supervisor [employer] INTERNAL MEDICINE 08/18/21 Eduardo Foster MD [address] [place] [address] Consulting Physician Orthopaedic Surgery Sports Medicine 11/03/23 documented as of this encounter
--- OUTSIDE RECORDS SUMMARY | 2025-03-24 15:39 | XMS_ITS | Encounter Summary ---
Author Organization [facility] Address [address] [place] [address] Care Team Providers Care Ballast Inspector Name Role Phone Yonathan Kellogg MD Unavailable [phone] Kaitlin Fuentes MD Unavailable [phone] Dre Boss MD Primary Care Provider [phone] Eduardo Foster MD Unavailable Unavailable Reason for Referral * Imaging (Emergency) - Closed Specialty Diagnoses / Procedures Referred By Contac t Referred To Contact RADIOLOGY Diagnoses Aneurysm of artery of lower extremity Procedures USV ART DUPLEX LOW LT Sola Gallego MD [address] [place] [address] Phone: tel: fax: Referral ID Status Reason Start Date Expiration Date V isits Requested Visits Authorized [id number] Closed Vascular Studies 11/01/2024 05/27/2025 1 1 * Imaging (Routine) - Authorized Specialty Diagnoses / Procedures Referred By Contjesus t Referred To Contact RADIOLOGY Diagnoses Pseudoaneurysm Procedures USV PSEUDO ANEURYSM LOW LT Sola Gallego MD [address] [place] [address] Phone: tel: fax: Referral ID Status Reason Start Date Expiration Date Visits Requested Visits Authorized [id number] Authorized Vascular Studies 12/03/2024 12/03/2025 1 1 Encounter Details Date Type Department Care Team (Late st Contact Info) Description 12/03/2024 Community Orders [facility] EPICCARE LINK Sola Gallego MD [address] [place] [address] Social History Tobacco Use Types Packs/Day Years [...] 06/09/2025 1:15 PM CDT Allied Health/Nurse Visit [facility] [address] [place] [address] Yonathan Kellogg MD [address] [place] [address] 06/09/2025 1:30 PM CDT Office Visit [facility] [address] [place] [address] Yonathan Kellogg MD [address] [place] [address] 09/10/2025 1:15 AM CDT Allied Health/Nurse Visit [facility] [address] [place] [address] Yonathan Kellgog MD [address] [place] [address] Scheduled Orders Name Type Priority Associated Diagnoses Orde r Schedule [facility] PSEUDO ANEURYSM LOW LT [facility] Pseudoaneurysm Expected: 12/04/2024, Expires: 12/03/2025 documented as of this encounter Results * USV ART DUPLEX LOW LT (12/04/2024 9:47 AM CDT) Anatomical Region Laterality Modality Extremity Ultrasound 12/04/2024 9:00 AM CDT Narrative 12/04/2024 9:07 PM CDT Vascular Report Pat.Name: [place] Pat.ID: [id number] .Date: 12/04/2024 Refer.MD: SOLA GALLEGO Exam Time: 9:00:00 AM Study Type:PVI ART DUPLEX SCAN-LEFT LEG Age: 6 1955,69Y Sex: M Sonogrphr: Luis Alfredo Richmond RVT, RDCS Pat. 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 No hematoma is noted. No pseudoaneurysm is noted. The common femoral, profunda femoris, and proximal femoral veins and arteries are patent. ++++++++++++++++++++++++++++++++++++ MEASUREMENTS: ++++++++++++++++++++++++++++++++++++ DOPPLER Left STATION HELPER STATION HELPER PSV 131 cm/s Left Prox Profunda Prox Profunda P 41 cm/s Left SFA Prox Prox SFA PSV 131 cm/s <Electronic Signature> 12/04/2024 09:07 PM Jackie Ortiz M.D. Procedure Note Jackie Ortiz MD - 12/04/2024 Vascular Report Pat.Name: [place] Pat.ID: [id number] .Date: 12/04/2024 Refer.MD: SOLA GALLEGO Exam Time: 9:00:00 AM Study Type:PVI ART DUPLEX SCAN-LEFT LEG Age: 6 1955,69Y Sex: M Sonogrphr: Luis Alfredo Richmond RVT, RDCS Pat. 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 No hematoma is noted. No pseudoaneurysm is noted. The common femoral, profunda femoris, and proximal femoral veins and arteries are patent. ++++++++++++++++++++++++++++++++++++ MEASUREMENTS: ++++++++++++++++++++++++++++++++++++ DOPPLER Left STATION HELPER STATION HELPER PSV 131 cm/s Left Prox Profunda Prox Profunda P 41 cm/s Left SFA Prox Prox SFA PSV 131 cm/s <Electronic Signature> 12/04/2024 09:07 PM Jackie Ortiz M.D. 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 documented in this encounter Care Teams Ballast Inspector Relationship Specialty Start Date End Date Dre Boss MD [address] [place] [address] PCP - General INTERNAL MEDICINE 08/19/20 Yonathan Kellogg MD [address] [place] [address] EP Vice President Process CLINICAL CARDIAC ELECTROPHYSIOLOGY 10/05/17 Kaitlin Fuentes MD [address] [place] [address] Consulting Physician INTERNAL MEDICINE 07/23/20 Eduardo Foster MD [address] [place] [address] Consulting Physician Orthopaedic Surgery Sports Medicine 11/03/23 documented as of this encounter
--- OUTSIDE RECORDS SUMMARY | 2025-03-24 15:39 | XMS_ITS | Encounter Summary ---
Author Organization [facility] Address [address] [place] [address] Care Team Providers Care Temple Meat Cutter Name Role Phone Yonathan Kellogg MD Unavailable [phone] Denise Elmore ILLUMINATING ENGINEER Primary Care Provider [phone] Omar River MD Unavailable Unavailable None, Provider MD Primary Care Provider [facility]avail[facility] Kaitlin Fuentes MD Unavailable [phone] Dre Boss MD Primary Care Provider [phone] Agustin Vidal MD Unavailable Aaron Rivera MD Unavailable Unavailable Patricia Lamar NP Unavailable [phone] Agustin Vidal MD Unavailable Eduardo Foster MD Unavailable Unavailable Encounter Details Date Type Department Care Team (Late st Contact Info) Description 08/30/2018 Abstract [facility] [address] [place] [phone] Yonathan Kellogg MD [address] [place] [address] Social History Tobacco Use Types Packs/Day Years [...] 06/09/2025 1:15 PM CDT Allied Health/Nurse Visit [facility] [address] [place] [address] Yonathan Kellogg MD [address] [place] [address] 06/09/2025 1:30 PM CDT Office Visit [facility] [address] [place] [address] Yonathan Kellogg MD [address] [place] [address] 09/10/2025 1:15 AM CDT Allied Health/Nurse Visit [facility] [address] [place] [address] Yonathan Kellogg MD [address] [place] [address] documented as of this encounter Procedures Procedure Name Priority Date/Time Associated Diagnosis Comments LIPID PANEL (OUTSIDE LAB) Routine 07/27/2018 CBC W/ MANUAL DIFF (OUTSIDE) Routine 07/27/2018 COMPREHENSIVE METABOLIC PANEL Routine 07/27/2018 documented in this encounter Results * LIPID PANEL (OUTSIDE LAB) (07/27/2018) CHOLESTEROL 158 TRIGLYCERIDES 225 HDL 40 LDL (CALCULATED) 97 07/27/2018 [facility] Abstract LAB-OUTSIDE/ABSTRACTED Final Result * COMPREHENSIVE METABOLIC PANEL (07/27/2018) SODIUM S/P/B 137 POTASSIUM S/P/B 5.1 CO2 [...] * CBC W/ MANUAL DIFF (OUTSIDE) (07/27/2018) WBC 7.80 RBC 3.78 HGB 11.1 HCT [...] Rule Out 04/05/2021 04/05/2021 04/05/2021 8:31 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 documented as of this encounter Care Teams Temple Meat Cutter Relationship Specialty Start Date End Date Denise Elmore NP [address] [place] [address] PCP - General NURSE PRACTITIONER 10/05/17 07/21/20 None, Provider, PCP - General 07/22/20 08/18/20 Dre Boss MD [address] [place] [address] PCP - General INTERNAL MEDICINE 08/19/20 Yonathan Kellogg MD [address] [place] [address] EP Coloring Checker CLINICAL CARDIAC ELECTROPHYSIOLOGY 10/05/17 Omar River MD INTERVENTIONAL CARDIOLOGY 10/27/17 Kaitlin Fuentes MD Consulting Physician INTERNAL MEDICINE 07/23/20 Agustin Vidal MD [address] [place] [address] Vascular/Coloring Checker INTERNAL MEDICINE 08/19/20 Aaron Rivera MD [address] [place] [address] Consulting Physician INTERVENTIONAL CARDIOLOGY 12/28/20 1 04/18/23 Patricia Lamar NP [address] [place] [address] Nurse Practitioner Nurse Practitioner Family 12/28/20 08/14/24 Agustin Vidal MD [address] [place] [address] Vascular/Coloring Checker INTERNAL MEDICINE 08/18/21 Eduardo Foster MD [address] [place] [address] Consulting Physician Orthopaedic Surgery Sports Medicine 11/03/23 documented as of this encounter
--- OUTSIDE RECORDS SUMMARY | 2025-03-24 15:39 | XMS_ITS | Clinical Summary ---
Author Organization [facility] Address [address] [place] [address] Care Team Providers Care Ship Rigger Apprentice Name Role Phone Yonathan Kellogg MD Unavailable [phone] Kaitlin Fuentes MD Unavailable [phone] Dre Boss MD Primary Care Provider [phone] Eduardo Foster MD Unavailable Unavailable Allergies Active [...] mg total) by mouth daily. Active multi vitamin/minera ls tablet Take 1 tablet by mouth daily. Active terbinafine 1 % cream Apply topically nightly at bedtime. Active aspirin 81 MG chewable tablet Chew 1 tablet (81 mg total) by mouth daily. Active ipratropium-al buterol 20-100 MCG/ACT inhaler Inhale 1 puff into the lungs 4 (four) times daily. Please provide assembled. Active aluminum hydroxide 320 MG/5ML suspension Take 5 mLs by mouth as needed (as needed). Active pravastatin 10 MG tablet Take 0.5 tablets (5 mg total) by mouth see administration instructions. Monday, Monday, Monday, Monday Active MENTHOL-METHYL SALICYLATE EX Apply 1 Application topically as needed (as needed). Active gabapentin 300 MG capsule Take 2 capsules (600 mg total) by mouth 2 (two) times a day. Active Trolamine Salicylate (ANALGESIC CREAM/ALOE EX) Apply 1 Application topically as needed (as needed). Active amiodarone 200 MG tablet Take 1 tablet (200 mg total) by mouth daily. 30 tablet 11 1 Active ezetimibe (ZETIA) 10 MG tablet Take 1 tablet (10 mg total) by mouth daily. Active fluticasone-sa lmeterol (ADVAIR DISKUS) 500-50 MCG/ACT inhaler Inhale 1 puff into the lungs 2 (two) times daily. Active albuterol sulfate HFA 108 (90 Base) MCG/ACT inhaler Inhale 2 puffs into the lungs every 6 (six) hours as needed for Wheezing. Active doxazosin (CARDURA) 4 MG tablet Take 1 tablet (4 mg total) by mouth nightly at bedtime. 90 tablet 4 4 Active montelukast (SINGULAIR) 10 MG tablet Take 1 tablet (10 mg total) by mouth daily. Active metoprolol succinate ER (TOPROL-XL) 50 MG 24 hr tabletIndicati ons:heart/bloo d pressure Take 0.5 tablets (25 mg total) by mouth daily. Indications: heart/blood pressure 90 tablet 4 5 Active furosemide (LASIX) 40 MG tablet Take 0.5 tablets (20 mg total) by mouth daily. 30 tablet 1 5 Active hydrocortisone (CORTIZONE) 1 % cream Apply topically 2 (two) times daily. Use on rash prn 14 g 1 5 Active Carboxymethylc ellulose Sodium (REFRESH LIQUIGEL) 1 % Gel Place 1 drop into both eyes 3 (three) times daily. 5 Active clopidogrel (PLAVIX) 75 MG tablet Take 1 tablet (75 mg total) by mouth daily. 90 tablet 3 5 Active lisinopril (PRINIVIL) 2.5 MG tablet Take 1 tablet (2.5 mg total) by mouth daily. 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 Abdominal aortic aneurysm (A AA) without rupture, unspecified part 01/31/2024 Trigger middle finger of right hand 11/02/2023 Trigger index finger of left hand 07/07/2022 Overview (07/07/2022): Added automatically from request for surgery [id number] Trigger middle finger of left hand 07/07/2022 Overview (07/07/2022): Added automatically from request for surgery [id number] Trigger ring finger of left hand 07/07/2022 Overview (07/07/2022): Added automatically from request for surgery [id number] Carotid artery disease without cerebral infarcti on [...] pulse in left arm Smoker 11/10/2017 Cardiomyopathy 11/10/2017 On amiodarone therapy 10/11/2017 Coronary artery disease invo lving yuhaaviatam coronary artery of yuhaaviatam heart without angina pectoris 07/03/2017 Old myocardial infarction, greater than 8 weeks 07/03/2017 Mixed hyperlipidemia 07/03/2017 Chronic systolic congestive heart failure 2017 Primary hypertension 07/03/2017 S/P insertion of iliac artery stent 07/03/2017 VT (ventricular tachycardia) 07/02/2017 ICD (implantable cardioverter-defibrillator), du al, in situ Overview (10/05/2017): SJM DC ICD implanted on 07/04/17 Myalgia due to statin Encounters Date Type Department Care Team Description 03/12/2025 1:00 AM [employer]VERTISING [employer] Allied Health/Nurse Visit [facility] [address] [place] [address] Yonathan Kellogg MD 01/21/[address] [facility] [address] [place] [address] Yonathan Kellogg MD Referral 01/07/2025 9:55 AM CDT - 01/07/2025 11:59 PM CDT Hospital Encounter [facility] [address] [place] [address] Brielle Santiago, PA-C Discharge Disposition: Home or Self Care (Routine Discharge) 01/07/2025 Travel from Last 3 Months Family History [...] Sign Reading Time Taken Comments Blood Pressure 130/64 12/02/2024 10:57 AM CDT Pulse 62 12/02/2024 10:57 AM CDT Temperature 36.2 C (97.2 F) 11/28/2024 8:37 AM CDT Respiratory Rate 16 12/02/2024 10:57 AM CDT Oxygen Saturation 93% 12/02/2024 10:57 AM CDT Inhaled Oxygen Concentration - - Weight 108 kg (238 lb) 12/02/2024 10:57 AM CDT Height 170.2 cm (5' 7) 12/02/2024 10:57 AM CDT Body Mass Index 37.28 12/02/2024 10:57 AM CDT Plan of Treatment Upcoming Encounters Date Type Department Care Team (Late st Contact Info) Description 06/09/2025 1:15 PM CDT Allied Health/Nurse Visit [facility] [address] [place] [address] Yonathan Kellogg MD [address] [place] [address] 06/09/2025 1:30 PM CDT Office Visit [facility] [address] [place] [address] Yonathan Kellogg MD [address] [place] [address] 09/10/2025 1:15 AM CDT Allied Health/Nurse Visit [facility] [address] [place] [address] Yonathan Kellogg MD [address] [place] [address] Health Maintenance Due Date Last Done Comments Hepatitis C 1972 Lung Cancer Screening 2004 Zoster Vaccines (1 of 2) 2004 RSV Immunization or 60+ Years (1 - Risk 60-74 years 1-dose series) 2014 ASCVD LDL 05/06/2020 05/06/2019, 05/0 05/2018, 07/03/2017 Pneumococcal Vaccine: 50+ Years (3 of 3 - PCV20 or PCV21) 12/13/2023 12/12/2018, 02/01/2017 PHQ-2 (Physician [place]) 03/27/2024 COVID-19 Vaccine ( season) 2024 Influenza Adult (#1) 2024 02/27/2019, 12/25/2017, 02/01/2017, Additional history exists DTaP, Tdap and Td Vaccines (4 - Td or Tdap) 08/01/2028 08/01/2018, 06/02/2008, 03/27/2008 Colorectal Cancer Screening Colonoscopy (10 Years) 12/18/2030 12/18/2020, 12/18/2020 AAA SCREENING Completed 01/07/2025, 11/25, 10/20/2020 Hepatitis A Vaccines Aged Out No long er eligible based on patient's age to complete this topic Meningococcal B Vaccine Aged Out No l onger eligible based on patient's age to complete this topic Meningococcal Vaccine Aged Out No ahsan prakash eligible based on patient's age to complete this topic RSV Immunizations Under 20 Months Aged Out No longer eligible based on patient's age to complete this topic Medical Devices Implanted Type Area Bookkeeper Device Identifier Shelf Expiration Date Model / Serial / Lot Stark-Ellipse Dr-07/04/2017 Implanted:06/25 by Yonathan Kellogg MD (Quantity not on file) ICD [employer] [id number] / [id number] / Stark-Ra-07/04 Implanted:06/25 by Yonathan Kellogg MD (Quantity not on file) Lead Implant [employer] [id number] -52 / [id number] / Stark-Rv-07/04 Implanted:06/25 by Yonathan Kellogg MD (Quantity not on file) Lead Implant [employer] [id number] / [id number] / Pv Wl Morning Sun Viabahn Vbx Right Common Iliac- 1 Implanted:Qty: 1 on 12/21/2020 by Aaron Rivera MD Stent Right: Iliac [employer] 05/05/2023 [id number] / [id number] / Pv Wl Morning Sun Viabahn Vbx Left Subclavian Artery- 5 Implanted:06/2024 by Ildefonso Mai MD (Quantity not on file) Stent Subclavian [employer] 03/13/2027 [id number] / [id number] / Optisure Df4 Lead-Icd - [id number] Implanted:Qty: 1 on 07/04/2017 by Yonathan Kellogg MD at [facility] 01/24/2018 [id number]/ [id number] / [id number] / Tendril Mri Lead - [id number] Implanted:Qty: 1 on 07/04/2017 by Yonathan Kellogg MD at [facility] 05/17/2018 [id number] /52 / [id number] / Tendril Mri Lead - [id number] Implanted:06/25 at [facility] (Quantity not on file) [facility] 05/17/2018 [id number] /52 / / Tendril Mri Lead - [id number] Implanted:06/25 at [facility] (Quantity not on file) [facility] [id number] /58 / / Icd [facility]. [facility]isten Ellipse Dr - [id number] Implanted:06/25 at [facility] (Quantity not on file) [employer] 02/23/2019 [id number] / / Ellipse Icd-Dual - [id number] Implanted:Qty: 1 on 07/04/2017 by Yonathan Kellogg MD at [facility] 02/23/2019 [id number] / [id number] / Optisure Df4 Lead-Icd - [id number] Implanted:06/25 at [facility] (Quantity not on file) [facility] 01/24/2018 [id number]/ [id number] / / Procedures Procedure Name Priority Date/Time Associated Diagnosis Comments CT ABD+PEL WO CON Routine 01/07/2025 10: 29 AM CDT Right testicular pain COLONOSCOPY Routine 12/18/2020 7:23 AM CDT LIPID PANEL (OUTSIDE LAB) Routine 05/06/2019 from Last 3 Months or Most Recently Relevant to Health Maintenance Results * CT ABD+PEL WO CON (01/07/2025 10:29 AM CDT) Anatomical Region Laterality Modality Abdomen Computed Tomogra phy 01/09/2025 1:16 PM CDT Impressions 01/09/2025 4:09 PM CDT IMPRESSION: 1. No acute CT findings that explain the patient's symptoms. 2. 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 Recommendations: Follow-up in 5 years with imaging of the abdominal aorta to monitor for growth, per the [place] [employer] consensus guidelines. 3. Prostatomegaly The attending radiologist has reviewed the image(s) and agrees with the content of this report. Ordered By: BRIELLE SANTIAGO Interpreted By: Nilam Chacko MD, 01/09/2025 1:16 PM Narrative 01/09/2025 4:09 PM CDT [address] [place] [address] PROCEDURE: CT ABD+PEL WO CON HISTORY: Right testicular pain for 3 months. History of left femoral artery pseudoaneurysm. TECHNIQUE: Helical CT of the abdomen and pelvis was performed without intravenous contrast. A dose lowering technique was used for this procedure, which may include, but is not limited to, dose reduction technique, automated exposure control, the use of iterative reconstruction, and ALARA (As Low As Reasonably Achievable) / Image Gently techniques. COMPARISON: None FINDINGS CT ABDOMEN/PELVIS: Lower thorax: There is a posterior pleural-based soft tissue mass in the left lower lung lobe that measures 1.6 x 3.6 cm this is unchanged for 4 years, most likely benign. There is groundglass opacities in the basilar lung that suggest atelectasis. Cardiomegaly. Coronary artery disease. Liver: The liver is normal in size. Liver is normal density.. Biliary tree: The gallbladder is present. There is no biliary ductal dilatation. Spleen: The spleen is normal in size. Benign splenule. Pancreas: The pancreas is normal in size. There are no pancreatic calcifications. The pancreatic duct is not dilated. Adrenal glands: The adrenal glands are normal in size and shape. Kidneys: There is no hydronephrosis. No renal stones are seen. There is a 2.8 cm renal cyst in the superior pole of the left kidney and 5.9 cm renal cyst in the superior pole of the right kidney. No further follow-up recommended. Scattered renal arterial calcifications. Lymph nodes: Abdomen: There is no abdominal adenopathy. Pelvis: There is no pelvic adenopathy. Vasculature: Ectasia of the abdominal aorta, measuring 2.8 cm. Atherosclerosis disease. Peritoneum/mesentery/omentum: There is no free fluid or free air. GI tract: There is no bowel obstruction. Normal appendix. No small bowel obstruction. No colonic wall thickening or obstruction. Pelvic urogenital structures:Bladder is unremarkable. Prostatomegaly, measuring 6.9 x 7.8 cm. There is a hypodensity posterior to the prostate with density similar to water and surrounding calcifications. Body wall/Bones: Tiny umbilical hernia containing only fat. There is a soft tissue density measuring 2.2 x 1.5 cm above the femoral artery on the left side, this correlates with sequela of left femoral artery pseudoaneurysm. Spondylosis of the lumbar and thoracic spine. Multilevel degenerative disc disease of the lumbar spine with vacuum disc phenomenon. Subchondral cysts seen in L1-L5. Subchondral cysts in the left femoral head. Limitations: Evaluation of the solid parenchymal organs and vasculature is limited due to lack of intravenous contrast. Dorsey: (S/I) = series number / image number Procedure Note Devan Anaya MD - 01/09/2025 [place] [id number] [facility] [place] [address] PROCEDURE: CT ABD+PEL WO CON HISTORY: Right testicular pain for 3 months. History of left femoralartery pseudoaneurysm. TECHNIQUE: Helical CT of the abdomen and pelvis was performed withoutintravenous contrast. A dose lowering technique was used for this procedure, which may include,but is not limited to, dose reduction technique, automated exposurecontrol, the use of iterative reconstruction, and ALARA (As Low AsReasonably Achievable) / Image Gently techniques. COMPARISON: None FINDINGS CT ABDOMEN/PELVIS: Lower thorax: There is a posterior pleural-based soft tissue mass in theleft lower lung lobe that measures 1.6 x 3.6 cm this is unchanged for 4years, most likely benign. There is groundglass opacities in the basilarlung that suggest atelectasis. Cardiomegaly. Coronary artery disease. Liver: The liver is normal in size. Liver is normal density.. Biliary tree: The gallbladder is present. There is no biliary ductaldilatation. Spleen: The spleen is normal in size. Benign splenule. Pancreas: The pancreas is normal in size. There are no pancreaticcalcifications. The pancreatic duct is not dilated. Adrenal glands: The adrenal glands are normal in size and shape. Kidneys: There is no hydronephrosis. No renal stones are seen. There is a2.8 cm renal cyst in the superior pole of the left kidney and 5.9 cm renalcyst in the superior pole of the right kidney. No further follow-uprecommended. Scattered renal arterial calcifications. Lymph nodes: Abdomen: There is no abdominal adenopathy. Pelvis: There is no pelvic adenopathy. Vasculature: Ectasia of the abdominal aorta, measuring 2.8 cm.Atherosclerosis disease. Peritoneum/mesentery/omentum: There is no free fluid or free air. GI tract: There is no bowel obstruction. Normal appendix. No small bowelobstruction. No colonic wall thickening or obstruction. Pelvic urogenital structures:Bladder is unremarkable. Prostatomegaly,measuring 6.9 x 7.8 cm. There is a hypodensity posterior to the prostatewith density similar to water and surrounding calcifications. Body wall/Bones: Tiny umbilical hernia containing only fat. There is asoft tissue density measuring 2.2 x 1.5 cm above the femoral artery on theleft side, this correlates with sequela of left femoral arterypseudoaneurysm. Spondylosis of the lumbar and thoracic spine. Multileveldegenerative disc disease of the lumbar spine with vacuum disc phenomenon.Subchondral cysts seen in L1-L5. Subchondral cysts in the left femoralhead. Limitations: Evaluation of the solid parenchymal organs and vasculature islimited due to lack of intravenous contrast. Dorsey: (S/I) = series number / image number IMPRESSION: 1. No acute CT findings that explain the patient's symptoms. 2. 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 Recommendations:Follow-up in 5 years with imaging of the abdominal aorta to monitor forgrowth, per the [place] [employer] consensus guidelines. 3. Prostatomegaly The attending radiologist has reviewed the image(s) and agrees with thecontent of this report. Ordered By: BRIELLE SANTIAGO Interpreted By: Nilam Chacko MD, 01/09/2025 1:16 PM us Brielle Santiago PA-C CT Final Result * Colonoscopy (12/18/2020 7:23 AM CDT) Anthony Dozier MD GI PROCEDURE ORDERABLES Final Re sult * LIPID PANEL (OUTSIDE LAB) (05/06/2019) CHOLESTEROL 174 <=199 TRIGLYCERIDES 253 0 - 150 HDL 44 40 - 60 LDL (CALCULATED) 112 <=99 05/06/2019 Doc [facility] Abstract LAB-OUTSIDE/ABSTRACTED Final Result from Last 3 Months or Most Recently Relevant to Health Maintenance Insurance [facility] Advance Directives * Full Code (Latest Code Status on File) Date Activated Date Inactivated Comments 11/28/2024 12:06 PM 11/28/2024 7:16 PM * Full Code Date Activated Date Inactivated Comments 10/21/2024 2:57 PM 10/21/2024 6:44 PM * Full Code Date Activated Date Inactivated Comments 04/07/2021 12:31 PM 04/07/2021 5:14 PM * Full Code Date Activated Date Inactivated Comments 12/21/2020 6:45 PM 12/21/2020 8:45 PM * Full Code Date Activated Date Inactivated Comments 07/02/2017 4:17 AM 07/05/2017 4:06 PM Care Teams Ship Rigger Apprentice Relationship Specialty Start Date End Date Dre Boss MD [address] [place] [address] PCP - General INTERNAL MEDICINE 08/19/20 Yonathan Kellogg MD [address] [place] [phone] EP [employer] CLINICAL CARDIAC ELECTROPHYSIOLOGY 10/05/17 Kaitlin Fuentes MD [address] [place] [phone] Consulting Physician INTERNAL MEDICINE 07/23/20 Eduardo Foster MD [address] [place] [address] Consulting Physician Orthopaedic Surgery Sports Medicine 11/03/23
--- NOTE | 2025-03-24 15:47 | ED.SKABFB ---
HPI - Skin/Abscess/Foreign Bdy General Chief complaint: Skin/Abscess/Foreign Body Stated complaint: abscess left buttock Source: patient Mode of arrival: ambulatory Limitations: no limitations History of Present Illness HPI narrative: Patient drove himself to the emergency room complaining of boils like lesion at the inner side of left thigh for the last 14 months, comes and goes, usually gets better on antibiotic. Patient is diabetic. He denies any fever chills nausea vomiting diarrhea constipation or abdominal pain. Related Data Home Medications ?Medication ?Instructions ?Recorded ?Confirmed ?Last Taken ?Type Adult Low Dose Aspirin 81 mg PO DAILY 12/20/19 04/17/22 Unknown History Nitrostat 0.4 mg sublingual DIRECTED 12/20/19 04/17/22 Unknown History amiloride 5 mg PO DAILY 12/20/19 04/17/22 Unknown History amiodarone 200 mg PO DAILY 12/20/19 04/17/22 Unknown History budesonide 80 mcg inhalation BID 12/20/19 04/17/22 Unknown History cholecalciferol (vitamin D3) 25 mcg BYMOUTH DAILY 12/20/19 04/17/22 Unknown History doxazosin 8 mg PO DAILY 12/20/19 04/17/22 Unknown History gabapentin 100 mg PO DAILY 12/20/19 04/17/22 Unknown History lisinopril 40 mg PO DAILY 12/20/19 04/17/22 Unknown History metoprolol succinate 200 mg PO DAILY 12/20/19 04/17/22 Unknown History multivit with minerals-iron 18 1 tablet PO DAILY 12/20/19 04/17/22 Unknown History mg-folic ac 400 mcg-vit K 25 mcg tablet (Adults Multivitamin) omeprazole 40 mg PO DAILY 12/20/19 04/17/22 Unknown History pravastatin 10 mg PO DAILY 12/20/19 04/17/22 Unknown History aspirin 81 mg tablet 81 mg PO DIRECTED 09/21/21 04/17/22 Unknown History furosemide 20 mg tablet (Lasix) 20 mg PO DIRECTED 09/21/21 04/17/22 Unknown History Allergies Allergy/AdvReac Type Severity Reaction Status Date / Time No Known Allergies Allergy Verified 03/24/25 15:45 Review of Systems Review of Systems: All systems reviewed & are unremarkable except as noted in HPI and below PMFSH Past Medical History Medical History Chronic renal failure Diabetes type 2, controlled PSVT (paroxysmal supraventricular tachycardia) GERD (gastroesophageal reflux disease) Back pain CHF (congestive heart failure) HTN (hypertension) CAD (coronary artery disease) COPD (chronic obstructive pulmonary disease) Surgical History Surgical History Pacemaker AICD (automatic cardioverter/defibrillator) present Stented coronary artery Social History Social History Smoking status: Current every day smoker Substance use: never Substance use type: does not use Living arrangements: with family Exam Narrative: General appearance: Well-developed, well-nourished Skin: Indurated skin, surrounded with erythematous skin, 5 cm diameter at the inner side of left thigh slightly warm to touch Head: Normocephalic, nontraumatic Chest and respiratory: Airway patent, no respiratory distress, no accessory muscle use Heart: Regular rate/rhythm Abdomen: Soft, nontender, no organomegaly, quiet bowel sounds Musculoskeletal: Normal range of motion, nontender back Neurologic: Alert and oriented ?3, CO CHAIRMAN is normal as tested, no gross motor deficit Course Vital Signs Vital signs: Vital Signs Temperature 36.6 C 03/24/25 15:36 Pulse Rate 68 03/24/25 15:36 Respiratory Rate 20 03/24/25 15:36 Blood Pressure 132/64 03/24/25 15:36 Pulse Oximetry 98 03/24/25 15:36 Oxygen Delivery Room Air 03/24/25 15:36 Temperature 36.6 C 03/24/25 15:36 Pulse Rate 68 03/24/25 15:36 Respiratory Rate 20 03/24/25 15:36 Blood Pressure 132/64 03/24/25 15:36 Pulse Oximetry 98 03/24/25 15:36 Oxygen Delivery Room Air 03/24/25 15:36 [facility] MDM Narrative Medical decision making narrative: Differential diagnosis include boils versus abscess Patient declined I and D's and would like to try antibiotic 1st. Discharged on clindamycin Diagnosis skin infection, boil versus abscess Differential Diagnosis Differential Diagnosis: As above Critical Care Time Critical Care Time Critical Care Time: No Discharge Plan Discharge Clinical Impression: Abscess Patient Disposition: Home Condition: Stable Instructions: Antibiotic Form, Abscess (ED) Additional Instructions: Return if symptoms are worsening , call your family physician for appointment, take Tylenol, ibuprofen as as needed for aches and pain, continue home medications. Patient Language: Serbian Prescriptions: New clindamycin HCl [Cleocin HCl] 300 mg capsule 300 mg PO Q6H 7 Days Qty: 28 0RF No Action Adult Low Dose Aspirin 81 mg PO DAILY Adults Multivitamin 18 mg iron-400 mcg-25 mcg Tablet 1 tablet PO DAILY Nitrostat 0.4 mg sublingual DIRECTED amiloride 5 mg PO DAILY amiodarone 200 mg PO DAILY Rx Instructions: 1 tab on odd days and 2 tab on even days budesonide 80 mcg inhalation BID cholecalciferol (vitamin D3) 25 mcg BYMOUTH DAILY doxazosin 8 mg PO DAILY gabapentin 100 mg PO DAILY lisinopril 40 mg PO DAILY metoprolol succinate 200 mg PO DAILY omeprazole 40 mg PO DAILY pravastatin 10 mg PO DAILY Adult Low Dose Aspirin 81 mg Tablet 81 mg PO DIRECTED furosemide [Lasix] 20 mg Tablet 20 mg PO DIRECTED cephalexin 500 mg capsule 500 mg PO BID 7 Days Qty: 14 0RF doxycycline monohydrate 100 mg tablet 100 mg PO BID Qty: 20 0RF Rx Instructions: V.A. patient needs Antibiotics filled as soon as possible to treat infection. cefdinir 300 mg capsule 300 mg PO Q12H Qty: 20 0RF Rx Instructions: V.A. patient needs Antibiotics filled as soon as possible to treat infection. Follow-up/Referrals: Sally Neff MD [Physician, General Surgery] - 03/28/25 UNKNOWN,DOCTOR [Non-Staff]
== END 2025-03-24 15:49 | disposition home or self-care (01) ==
PROVIDERS: Emergency Provider Emergency Medicine
DX: L02.31 Cutaneous abscess of buttock (principal); I25.10 Atherosclerotic heart disease of native coronary artery without angina pectoris; J44.9 Chronic obstructive pulmonary disease, unspecified; I13.0 Hypertensive heart and chronic kidney disease with heart failure and stage 1 through stage 4 chronic kidney disease, or unspecified chronic kidney disease; E11.22 Type 2 diabetes mellitus with diabetic chronic kidney disease; N18.9 Chronic kidney disease, unspecified; I50.9 Heart failure, unspecified; F17.200 Nicotine dependence, unspecified, uncomplicated
CPT/HCPCS: 99283